=== PATIENT | female | born 1965 | race Caucasian/White ===

== ENCOUNTER 2019-03-02 12:59 | Emergency (ER) | payer OTHER ==
[2019-03-02] MEDS ORDERED: diphenhydrAMINE 50 MG/ML 1 ML VIAL IVP STA (13:24)
[2019-03-02] MEDS ORDERED: SODIUM CHLORIDE 0.9% 1,000 ML IV ONE (13:24)
[2019-03-02] MEDS ORDERED: ONDANSETRON 4 MG/2 ML VIAL IVP STA (13:24)
[2019-03-02] MEDS ORDERED: KETOROLAC 30 MG/ML 1 ML VIAL IVP STA (13:24)
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
[2019-03-02] MEDS ORDERED: DIAZEPAM 5 MG TAB PO STA (15:12)
[2019-03-02 16:45] VITALS: BP 132/82; PULSE 85; RESP 18; TEMP 98.5
== END 2019-03-02 16:44 | disposition home or self-care (01) ==
LOC: EC 12:59
DX: R51 Headache (principal); Z87.891 Personal history of nicotine dependence; Z88.1 Allergy status to other antibiotic agents
CPT/HCPCS: 99283; 96374; 96375 ×2; 96361; J1200; J2405; J1885

== ENCOUNTER 2019-07-27 23:39 | Observation (INO) | payer OTHER ==
[2019-07-27] MEDS ORDERED: KETOROLAC 30 MG/ML 1 ML VIAL IVP STA (23:56)
[2019-07-27] MEDS ORDERED: SODIUM CHLORIDE 0.9% 1,000 ML with MVI, ADULT NO.4 WITH VIT K 10 ML, THIAMINE 100 MG, F... IV ONE ×4 (23:57)
--- NOTE | 2019-07-28 00:10 | ED ---
Extremity Problem HPI - General Chief complaint: Extremity Problem,Nontraumatic Stated complaint: leg pain Time Seen by Provider: 07/27/19 23:43 Source: patient, EMS Mode of arrival: EMS Limitations: no limitations - History of Present Illness Initial comments: 54-year-old female patient presents to the emergency department today for evaluation of left leg pain and suicidal ideation. Patient states that around 10 PM she started having spasming to the left leg. Patient states she has had this pain in the past. Denies any injury. Denies any low back pain. Denies numbness or tingling to the lower extremities. Denies saddle anesthesia or loss of bowel or bladder control. Patient is also reporting depression and suicidal ideation. Patient states she is suicidal every day. She denies any specific plan to take her life. Patient does admit to drinking alcohol this evening. Patient denies any recent rash, fever, chills, shortness breath, chest pain, abdominal pain, nausea, vomiting, diarrhea, constipation, dizziness, weakness, hematuria, dysuria, urinary urgency, urinary frequency, headache, visual changes, or any other complaints. - Related Data Home Medications Medication Instructions Recorded Confirmed No Known Home Medications 03/02/19 03/02/19 Allergies Allergy/AdvReac Type Severity Reaction Status Date / Time bacitracin Allergy Unknown Verified 07/27/19 23:47 Review of Systems ROS Statement: Those systems with pertinent positive or pertinent negative responses have been documented in the HPI. ROS Other: All systems not noted in ROS Statement are negative. Past Medical History Past Medical History: Deep Vein Thrombosis (DVT), Hypertension History of Any Multi-Drug Resistant Organisms: None Reported Additional Past Surgical History / Comment(s): jaw surgery Past Psychological History: Anxiety, Depression Smoking Status: Former smoker Past Alcohol Use History: Daily, Heavy Past Drug Use History: None Reported General Exam Limitations: no limitations General appearance: alert, in no apparent distress, appears intoxicated, other (Physical well-developed, well-nourished adult female patient in no acute distress. Vital signs upon presentation are temperature 98.7F, pulse 82, respirations 18, blood pressure 147/98, pulse ox 94% on room air.) Eye exam: Present: normal appearance, PERRL, EOMI. Absent: scleral icterus, conjunctival injection, periorbital swelling Respiratory exam: Present: normal lung sounds bilaterally. Absent: respiratory distress, wheezes, rales, rhonchi, stridor Cardiovascular Exam: Present: regular rate, normal rhythm, normal heart sounds. Absent: systolic murmur, diastolic murmur, rubs, gallop, clicks Extremities exam: Present: normal inspection, full ROM, normal capillary refill, other (Skin to the left lower extremity is pink, warm, dry. Multiple varicosities. No swelling noted. Pedal and posttibial pulses are 2+ and equal bilaterally.). Absent: tenderness, pedal edema, joint swelling, calf tenderness Back exam: Absent: vertebral tenderness Neurological exam: Present: alert, oriented X3, CN II-XII intact Psychiatric exam: Present: normal affect, normal mood Skin exam: Present: warm, dry, intact, normal color. Absent: rash Course Vital Signs 07/27/19 07/28/19 23:42 01:13 Temperature 98.7 F Pulse Rate 82 73 Respiratory 18 16 Rate Blood Pressure 147/98 127/90 O2 Sat by Pulse 94 L 93 L Oximetry Medical Decision Making - Medical Decision Making 54 year-old female patient presents to the emergency department today for evaluation of left leg pain and suicidal ideation. Patient does admit to drinking alcohol. States she's been having chronic leg pain. Physical examination did reveal warm dry lower extremity. Good distal pulses. Ultrasound was obtained and did reveal evidence for an acute and chronic DVT in the popliteal vein, we will give a dose of Lovenox for this. Alcohol level was 305, she does need a psychiatric evaluation, will admit to the hospital for further evaluation. Alcohol withdrawal protocol has been ordered. - Radiology Data Radiology results: report reviewed, image reviewed Ultrasound of the left lower extremity was obtained. Report was reviewed in its entirety. Impression by Dr. Martinez shows evidence of acute and chronic deep venous thrombosis in the popliteal vein. Disposition Clinical Impression: Alcohol intoxication, Left leg DVT Disposition: ADMITTED IP TO THIS [facility] Condition: Serious Decision to Admit Reason: Admit from EC Decision Date: 07/28/19 Decision Time: 00:11
[2019-07-28] MEDS ORDERED: NALOXONE 0.4 MG/ML 1 ML VIAL IV PRN (00:11)
[2019-07-28] MEDS ORDERED: ONDANSETRON 4 MG/2 ML VIAL IVP PRN (00:11)
[2019-07-28] MEDS ORDERED: THIAMINE 100 MG/ML 2 ML VIAL IM STA (00:11)
[2019-07-28] MEDS ORDERED: LORazepam 2 MG/ML INJ IV PRN ×3 (00:11)
--- NOTE | 2019-07-28 01:13 | US ---
EXAMINATION TYPE: US venous doppler duplex LE LT DATE OF EXAM: 07/28/2019 1:03 AM COMPARISON: US 2014 CLINICAL HISTORY: Left leg pain. Left leg pain x couple days per patient. Hx of DVT. Patient does not take blood thinners. SIDE PERFORMED: Left TECHNIQUE: The lower extremity deep venous system is examined utilizing real time linear array sonog swapna with graded compression, doppler sonography and color-flow sonography. VESSELS IMAGED: External Iliac Vein (EIV) Common Femoral Vein Deep Femoral Vein Greater Saphenous Vein * Femoral Vein Popliteal Vein Small Saphenous Vein * Proximal Calf Veins (* superficial vessels) Left Leg: There appears to be non-occlusive thrombus in the popliteal vein. Vein does not appear to compress. Thready flow is seen. No evidence of DVT in veins imaged from distal femoral vein to EIV. IMPRESSION: There is evidence of acute and chronic deep venous thrombosis in the popliteal vein.
[2019-07-28] MEDS ORDERED: ENOXAPARIN 100 MG/ML SYRINGE SQ STA (01:24)
[2019-07-28 02:01] LABS: ALT 26 U/L (9-52); AST 30 U/L (14-36); African American GFR (CKD) >90 (>60 ml/min/1.73 sqM); Albumin 3.7 g/dL (3.5-5.0); Alkaline Phosphatase 55 U/L (38-126); Anion Gap 9 mmol/L; Blood Urea Nitrogen 11 mg/dL (7-17); Calcium 8.1 mg/dL (8.4-10.2); Carbon Dioxide 27 mmol/L (22-30); Chloride 110 mmol/L (98-107); Glucose 87 mg/dL (74-99); Non-African American GFR(CKD) >90 (>60 ml/min/1.73 sqM); Sodium 146 mmol/L (137-145); Total Bilirubin 0.3 mg/dL (0.2-1.3); Total Protein 6.1 g/dL (6.3-8.2)
[2019-07-28 02:03] LABS: Basophils % (A) 0 %; Eosinophils # (A) 0.1 k/uL (0-0.7); Eosinophils % (A) 2 %; HCT 39.9 % (34.0-46.0); HGB 12.5 gm/dL (11.4-16.0); Lymphocytes # (A) 1.4 k/uL (1.0-4.8); Lymphocytes % (A) 33 %; MCH 30.4 pg (25.0-35.0); MCHC 31.4 g/dL (31.0-37.0); MCV 96.8 fL (80.0-100.0); Mean Platelet Volume 6.3; Monocytes # (A) 0.2 k/uL (0-1.0); Monocytes % (A) 4 %; Neutrophils # (A) 2.4 k/uL (1.3-7.7); Neutrophils % (A) 58 %; Platelet Count 159 k/uL (150-450); RBC 4.12 m/uL (3.80-5.40); RDW 13.4 % (11.5-15.5); WBC 4.1 k/uL (3.8-10.6)
[2019-07-28 02:08] LABS: Partial Thromboplastin Time 22.5 sec (22.0-30.0); Prothrombin Time 10.6 sec (9.0-12.0)
[2019-07-28 02:38] VITALS: BMI 29.8
[2019-07-28] MEDS: ACETAMINOPHEN TAB 325 MG TAB PO PRN (09:52)
[2019-07-28 10:54] LABS: Amphetamine Screen,Urine Not Detected (NotDetected); Barbiturate Screen,Urine Not Detected (NotDetected); Benzodiazepines Screen,Urine Not Detected (NotDetected); Cocaine Screen,Urine Not Detected (NotDetected); Methadone Screen, Urine Not Detected (NotDetected); Opiate Screen,Urine Not Detected (NotDetected); Oxycodone Screen, Urine Not Detected (NotDetected); Phencyclidine Screen,Urine Not Detected (NotDetected); Tricyclic Antidepressant,Urine Not Detected (NotDetected); Urn Cannabinoid Scrn Not Detected (NotDetected)
[2019-07-28] MEDS ORDERED: RIVAROXABAN 15 MG TAB PO SCH (12:15)
[2019-07-28] MEDS: RIVAROXABAN 15 MG TAB PO SCH ×2 (12:48→20:49)
[2019-07-28] MEDS: DIAZEPAM 5 MG TAB PO SCH ×3 (13:09→20:49)
[2019-07-28] MEDS: THIAMINE 100 MG TAB PO SCH (13:09)
[2019-07-28] MEDS: METOPROLOL TARTRATE 12.5 MG TAB PO SCH ×2 (13:09→20:49)
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
[2019-07-29] MEDS: ACETAMINOPHEN TAB 325 MG TAB PO PRN (04:48)
[2019-07-29] MEDS: THIAMINE 100 MG TAB PO SCH ×2 (07:04→15:38)
[2019-07-29] MEDS: METOPROLOL TARTRATE 12.5 MG TAB PO SCH ×2 (07:04→21:15)
[2019-07-29] MEDS: RIVAROXABAN 15 MG TAB PO SCH ×2 (07:04→15:38)
[2019-07-29] MEDS: DIAZEPAM 5 MG TAB PO SCH ×3 (07:04→21:15)
[2019-07-29 07:54] LABS: Creatine Kinase 48 U/L (30-135)
[2019-07-29 08:07] LABS: Creatine Kinase MB 0.8 ng/mL (0.0-2.4); Troponin I <0.012 ng/mL (0.000-0.034)
--- NOTE | 2019-07-29 23:35 | P.PN ---
Progress Note - Text Progress Note Date: 07/29/19 Chief Complaint: Left leg cramping History of presenting complaint: This is a 54-year-old patient of Dr. Marleen Figueroa. Back in 2016 she had a what she describes as a duty of the left lower extremity. She was then followed with Dr. Duff. Wasn't Xarelto. Did complete a course. She was also had the Hospital where clot extraction was carried out. She cannot give me more details. Patient yesterday started having cramping in the left leg. And presented to the ER. More around the knee area above and below that. No shortness of breath. Doppler ultrasound did show acute on chronic DVT and a protruding. Patient did receive 100 mg of Lovenox 1 dose. Patient only drinks at least a liter of vodka every day. Has been negative for close to 40 years. She's had tried to get help in the past. Did go to one unit of detox program which is [facility] based in [place] in [place]. She has 6 siblings. And alcohol has been a problem. There was a concern about patient mentioning about suicide when checked, and has a sitter was placed. Psychiatry was consulted. When I took. The patient does morning patient was not suicidal. She was feeling a bit low. Admitted with early alcohol withdrawal, depression, acute alcohol intoxication Today-still presence off tremors. slightly better. Did tolerate her diet. A bit anxious Review of systems: Was done for constitutional, cardiovascular, GI, pulmonary. Psychiatry, relevant finding as above Active Medications Acetaminophen (Tylenol Tab) 650 mg PO Q6HR PRN PRN Reason: Fever and/ or Pain Last Admin: 07/29/19 04:48 Dose: 650 mg Documented by: Diazepam (Valium) 5 mg PO TID [facility] Last Admin: 07/29/19 21:15 Dose: 5 mg Documented by: Lorazepam (Ativan) 1 mg IV Q2HR PRN PRN Reason: CIWA 8 or 9 Lorazepam (Ativan) 1 mg IV Q1HR PRN PRN Reason: CIWA 10 to 15 Lorazepam (Ativan) 2 mg IV Q10M PRN PRN Reason: CIWA 16 or higher Stop: 07/30/19 00:11 Metoprolol Tartrate (Lopressor) 12.5 mg PO BID [facility] Last Admin: 11/16/19 21:15 Dose: 12.5 mg Documented by: Naloxone HCl (Narcan) 0.2 mg IV Q2M PRN PRN Reason: Opioid Reversal Ondansetron HCl (Zofran) 4 mg IVP Q8HR PRN PRN Reason: Nausea And Vomiting Rivaroxaban (Xarelto) 15 mg PO BID-W/MEALS [facility] Last Admin: 07/29/19 15:38 Dose: 15 mg Documented by: Thiamine HCl (Vitamin B-1) 100 mg PO BID-W/MEALS [facility] Last Admin: 07/29/19 15:38 Dose: 100 mg Documented by: Physical examination: VITAL SIGNS: 98.7, 76, 16, 130/89, 95% room air GENERAL: Laying in bed, slightly anxious. EYES: Pupils equal. Conjunctiva normal. HEENT: External appearance of nose and ears normal, oral cavity grossly normal spider telangiectasia on the face and upper chest. NECK: JVD not raised; masses not palpable. HEART: First and second heart sounds are normal; no edema. LUNGS: Respiratory rate normal; clear to auscultation. ABDOMEN: Soft, nontender, liver spleen not palpable, no masses palpable. PSYCH: Alert and oriented x3; mood and affect anxiousl. NEUROLOGICAL: Cranial nerves grossly intact; no facial asymmetry, power and sensation grossly intact. Tremors INVESTIGATIONS, reviewed in the clinical context: White count 4.1 hemoglobin 12.5 progression for BUN 11 creatinine 0.65 albumin 3.7 Doppler ultrasound-acute on chronic DVT in the left lower extremity in the popliteal vein Assessment: -Acute on chronic DVT in the left popliteal vein symptoms of one-day duration. No obvious precipitating factor except for the fact that patient had a DVT there in 2016. -Chronic alcohol dependence, patient been drinking for several years -Acute alcohol withdrawal syndrome, with patient being anxious tremors, bit flushed drain- -Depression not otherwise specified, currently not suicidal Plan: Continue with Valium. Beta judi. Patient is on Xarelto. Discussed with the patient. Keep her back for at least a day. She will talk to her family members to see if somebody can live with her temporarily or she can live with somebody for the same.
[2019-07-30] MEDS: RIVAROXABAN 15 MG TAB PO SCH (07:31)
[2019-07-30] MEDS: THIAMINE 100 MG TAB PO SCH (07:31)
[2019-07-30] MEDS: METOPROLOL TARTRATE 12.5 MG TAB PO SCH (07:31)
[2019-07-30] MEDS: DIAZEPAM 5 MG TAB PO SCH (07:32)
[2019-07-30 14:24] VITALS: BP 126/86; PULSE 78; RESP 16; TEMP 98
--- NOTE | 2019-07-30 19:01 | P.DS ---
Providers Date of admission: 07/28/19 00:28 Expected date of discharge: 07/30/19 Attending physician: Marco Franco Consults: 07/28/19 00:11 Consult Physician Routine Consulting Provider: Abdirizak Claudio Reason/Comments: Suicidal Ideation Do you want consulting provider notified?: Already Contacted Primary care physician: Constantine Figueroa [facility] Course: Chief Complaint: Left leg cramping History of presenting complaint: This is a 54-year-old patient of Dr. Marleen Figueroa. Back in 2016 she had a what she describes as a duty of the left lower extremity. She was then followed with Dr. Duff. Wasn't Xarelto. Did complete a course. She was also had the Hospital where clot extraction was carried out. She cannot give me more detail s. Patient yesterday started having cramping in the left. And presented to the ER. More around the knee area above and below that. No shortness of breath. Doppler ultrasound did show acute on chronic DVT and a protruding. Patient did receive 100 mg of Lovenox 1 dose. Patient only drinks at least a liter of vodka every day. Has been negative for close to 40 years. She's had tried to get help in the past. Did go to one unit of detox program which is [facility] based in [place] in [place]. She has 6 siblings. And alcohol has been a problem. There was a concern about patient mentioning about suicide when checked, and has a sitter was placed. Psychiatry was consulted. When I took. The patient does morning patient was not suicidal. She was feeling a bit low. Admitted with early alcohol withdrawal, depression, acute alcohol intoxication. Acute DVT of the left leg. She was seen by psychiatrist. No further intervention. Patient was given Valium beta blockers for the withdrawal to which she responded well. Was started on Xarelto. Today-feeling much improved. Had a very lengthy talk with the patient about several aspects of alcoholism. She is mentally trying to stay away from the same. She has several siblings. She'll reach out of them. I did tell her to make a plan before she leaves the hospital. Discussion and discharge planning more than 35 minutes Consultation: Psychiatrist-Abdirizak Morgan Physical examination: VITAL SIGNS: 98, 78, 16, 126/86, 96% room air GENERAL: Sitting up, comfortable. EYES: Pupils equal. Conjunctiva normal. HEENT: External appearance of nose and ears normal, oral cavity grossly normal spider telangiectasia on the face and upper chest. NECK: JVD not raised; masses not palpable. HEART: First and second heart sounds are normal; no edema. LUNGS: Respiratory rate normal; clear to auscultation. ABDOMEN: Soft, nontender, liver spleen not palpable, no masses palpable. PSYCH: Alert and oriented x3; mood and affect anxious,. NEUROLOGICAL: Tremor is much improved INVESTIGATIONS, reviewed in the clinical context: White count 4.1 hemoglobin 12.5 progression for BUN 11 creatinine 0.65 albumin 3.7 Doppler ultrasound-acute on chronic DVT in the left lower extremity in the popliteal vein Assessment: -Acute on chronic DVT in the left popliteal vein symptoms of one-day duration. patient had a DVT there in 2016. -Chronic alcohol dependence, patient been drinking for several years -Acute alcohol withdrawal syndrome, with patient being anxious tremors, bit flushed drain- -Depression not otherwise specified, currently not suicidal Disposition: Home Addendum: Later in the evening. Did call patient's sister Benita, to see if to siblings could help the patient out. She was very receptive to the same. Patient Condition at Discharge: Stable Plan - Discharge Summary Discharge Rx Participant: No New Discharge Prescriptions: New Disulfiram 250 mg PO DIRECTED #30 tablet Metoprolol Tartrate [Lopressor] 12.5 mg PO BID #6 tab Thiamine [Vitamin B-1] 100 mg PO DAILY #30 tab Rivaroxaban [Xarelto] 15 mg PO BID-W/MEALS tab Continue Ibuprofen [Advil] 400 mg PO Q8HR PRN PRN Reason: Pain Fluticasone Nasal [place] [Flonase Nasal [place]] 2 sprays EA NOSTRIL DAILY PRN PRN Reason: Allergy Symptoms Discharge Medication List Fluticasone Nasal [place] [Flonase Nasal [place]] 2 sprays EA NOSTRIL DAILY PRN 07/28/19 [History] Ibuprofen [Advil] 400 mg PO Q8HR PRN 07/28/19 [History] Disulfiram 250 mg PO DIRECTED #30 tablet 07/30/19 [Rx] Metoprolol Tartrate [Lopressor] 12.5 mg PO BID #6 tab 07/30/19 [Rx] Rivaroxaban [Xarelto] 15 mg PO BID-W/MEALS tab 07/30/19 [Rx] Thiamine [Vitamin B-1] 100 mg PO DAILY #30 tab 07/30/19 [Rx] Follow up Appointment(s)/Referral(s): Constantine Figueroa DO [Primary Care Provider] - 1-2 days Patient Instructions/Handouts: Alcohol Intoxication (DC), Alcohol Withdrawal (DC) Activity/Diet/Wound Care/Special Instructions: Nurse: if patient needs anticoag, she has no insurance and will only qualify for 1 free month of Xarelto, otherwise she will have to go on coumadin. Free Coupon is in front of chart Given to patient on Discharge Discharge Disposition: HOME SELF-CARE
== END 2019-07-30 14:32 | disposition home or self-care (01) ==
LOC: SUPCPDRO 23:39 → EC 23:39 → 4MS4W 07-28 00:28
PROVIDERS: ADMIT Hospitalist; ATTEND Hospitalist
DX: I82.532 Chronic embolism and thrombosis of left popliteal vein (principal); I82.402 Acute embolism and thrombosis of unspecified deep veins of left lower extremity; F10.239 Alcohol dependence with withdrawal, unspecified; F10.229 Alcohol dependence with intoxication, unspecified; F10.24 Alcohol dependence with alcohol-induced mood disorder; F32.9 Major depressive disorder, single episode, unspecified; F41.9 Anxiety disorder, unspecified; R45.851 Suicidal ideations; Y90.8 Blood alcohol level of 240 mg/100 ml or more; I10 Essential (primary) hypertension; I83.90 Asymptomatic varicose veins of unspecified lower extremity; M79.89 Other specified soft tissue disorders; G89.29 Other chronic pain; Z88.1 Allergy status to other antibiotic agents; Z87.891 Personal history of nicotine dependence; Z79.1 Long term (current) use of non-steroidal anti-inflammatories (NSAID); Z81.1 Family history of alcohol abuse and dependence; E66.9 Obesity, unspecified; Z68.29 Body mass index [BMI] 29.0-29.9, adult
CPT/HCPCS: 96366 ×2; 82075; 96365; 96372; 96375; 99285; 93005; 80053; 82550; 82553; 84484; 85025; 85610; 85730; 80306; 93971; G0378 ×3; J3411; J1650; J1885

== ENCOUNTER 2019-11-21 09:48 | Emergency (ER) | payer OTHER ==
[2019-11-21 09:55] VITALS: RESP 18; TEMP 97.7
--- NOTE | 2019-11-21 10:19 | ED ---
Head Injury HPI - General Chief complaint: Head Injury Stated complaint: [facility]-head injury Time Seen by Provider: 11/21/19 10:03 Source: patient, RN notes reviewed, old records reviewed Mode of arrival: ambulatory Limitations: no limitations - History of Present Illness Initial comments: Patient is a 54-year-old female who presents emergency department today for evaluation with concern for dizziness and headache after head injury at work. Patient reports she was walking through bathroom door when the door frame fell on her head. Patient reports that she is on a blood thinner. Patient states that she's been having some persistent dizziness and foggy headed since that time. Patient has had no other significant complaints. - Related Data Home Medications Medication Instructions Recorded Confirmed Fluticasone Nasal [place] [Flonase 2 sprays EA NOSTRIL DAILY PRN 07/28/19 07/28/19 Nasal [place]] Ibuprofen [Advil] 400 mg PO Q8HR PRN 07/28/19 07/28/19 Previous Rx's Medication Instructions Recorded Disulfiram 250 mg PO DIRECTED #30 tablet 07/30/19 Metoprolol Tartrate [Lopressor] 12.5 mg PO BID #6 tab 07/30/19 Rivaroxaban [Xarelto] 15 mg PO BID-W/MEALS tab 07/30/19 Thiamine [Vitamin B-1] 100 mg PO DAILY #30 tab 07/30/19 Allergies/Adverse reactions: Allergies Allergy/AdvReac Type Severity Reaction Status Date / Time bacitracin Allergy Rash/Hives Verified 07/28/19 07:52 Review of Systems ROS Statement: Those systems with pertinent positive or pertinent negative responses have been documented in the HPI. ROS Other: All systems not noted in ROS Statement are negative. Past Medical History Past Medical History: Deep Vein Thrombosis (DVT), Hypertension History of Any Multi-Drug Resistant Organisms: None Reported Additional Past Surgical History / Comment(s): jaw surgery Past Psychological History: Anxiety, Depression Smoking Status: Former smoker Past Alcohol Use History: Occasional Past Drug Use History: None Reported General Exam - General Exam Comments Initial Comments: 54-year-old female. Alert and oriented 3. No distress. Limitations: no limitations General appearance: alert, in no apparent distress Head exam: Present: atraumatic, normocephalic, normal inspection Eye exam: Present: normal appearance, PERRL, EOMI. Absent: scleral icterus, conjunctival injection, periorbital swelling ENT exam: Present: normal exam, mucous membranes moist Neck exam: Present: normal inspection. Absent: tenderness, meningismus, lymphadenopathy Respiratory exam: Present: normal lung sounds bilaterally. Absent: respiratory distress, wheezes, rales, rhonchi, stridor Cardiovascular Exam: Present: regular rate, normal rhythm, normal heart sounds. Absent: systolic murmur, diastolic murmur, rubs, gallop, clicks GI/Abdominal exam: Present: soft, normal bowel sounds. Absent: distended, tenderness, guarding, rebound, rigid Extremities exam: Present: normal inspection, full ROM, normal capillary refill. Absent: tenderness, pedal edema, joint swelling, calf tenderness Back exam: Present: normal inspection, full ROM Neurological exam: Present: alert, oriented X3, CN II-XII intact Expanded Patient oriented to: Present: person, place, time Speech: Present: fluid speech Cranial nerves: EOM's Intact: Normal Cerebellar function: Finger to Nose: Normal Upper motor neuron: Pronator Drift: Normal Sensory exam: Upper Extremity Light Touch: Normal, Lower Extremity Light Touch: Normal Motor strength exam: RUE: 5, LUE: 5, RLE: 5, LLE: 5 Eye Response: (4) open spontaneously Motor Response: (6) obeys commands Verbal Response: (5) oriented Ann Total: 15 Psychiatric exam: Present: normal affect, normal mood Skin exam: Present: warm, dry, intact, normal color. Absent: rash Course Vital Signs 11/21/19 09:51 Temperature 97.7 F Pulse Rate 68 Respiratory 18 Rate Blood Pressure 128/80 O2 Sat by Pulse 99 Oximetry Medical Decision Making - Medical Decision Making 54-year-old female presents emergency department today for evaluation with concern for dizziness After head injury 2 days ago. She is on a blood thinner. She no loss of consciousness at that time. Patient at this time has no acute neurological deficits. Patient CT of the brain shows no evidence of any acute intracranial hemorrhage or mass effect. Evidence of chronic small vessel disease noted. Patient was advised that she has a concussion. Discussed on head injury and concussion instructions. Patient will be discharged at this time advised to follow-up with PCP for further evaluation. - Radiology Data Radiology results: report reviewed CT shows no acute intracranial hemorrhage or mass effect or midline shift is seen. Few scattered foci of nonspecific white matter change. Most commonly and chronic microangiopathy. Read by Dr. Mills. Disposition Clinical Impression: Concussion Disposition: HOME SELF-CARE Condition: Good Instructions (If sedation given, give patient instructions): Concussion (ED) Additional Instructions: Patient advised to take Tylenol and Motrin for headache and pain. Patient should rest, increase fluid intake. Follow-up with her primary care physician. Is patient prescribed a controlled substance at d/c from ED?: No Referrals: Constantine Figueroa DO [Primary Care Provider] - 1-2 days Time of Disposition: 10:43
--- NOTE | 2019-11-21 10:38 | CT ---
EXAMINATION TYPE: CT brain wo con DATE OF EXAM: 11/21/2019 COMPARISON: NONE HISTORY: headache, dizziness, memory loss, fatigue post fall with head injury CT DLP: 1023.4 mGycm. Automated Exposure Control for Dose Reduction was Utilized. TECHNIQUE: CT scan of the head is performed without contrast. FINDINGS: There is no acute intracranial hemorrhage, mass effect, or midline shift identified. Few scattered foci of nonspecific white matter change are seen in the periventricular white matter appear ing as a hypoattenuated foci. The ventricles and sulci are within normal limits in size. The globes are intact and the visualized sinuses are clear. Atherosclerosis is seen of the intracranial vascula ture. IMPRESSION: No acute intracranial hemorrhage, mass effect, or midline shift is seen. Few scattered f oci of nonspecific white matter change, most commonly on the basis of chronic microangiopathy.
[2019-11-21 11:18] VITALS: BP 121/80; PULSE 71
== END 2019-11-21 11:18 | disposition home or self-care (01) ==
LOC: EC 09:48
DX: S06.0X0A Concussion without loss of consciousness, initial encounter (principal); Z87.891 Personal history of nicotine dependence; Z88.1 Allergy status to other antibiotic agents; Z79.01 Long term (current) use of anticoagulants; Z86.718 Personal history of other venous thrombosis and embolism; W20.8XXA Other cause of strike by thrown, projected or falling object, initial encounter; Y93.01 Activity, walking, marching and hiking; Y92.69 Other specified industrial and construction area as the place of occurrence of the external cause; Y99.0 Civilian activity done for income or pay
CPT/HCPCS: 70450; 99284

== ENCOUNTER → 2019-11-22 | Outpatient (CLI) | payer OTHER ==
--- NOTE | 2019-11-22 16:53 | XR ---
Left hand HISTORY: Trauma and pain 3 views the left hand Bone mineralization, joint spaces and alignment are maintained with exception of arthropathy change a t the interphalangeal joint, metacarpophalangeal joint of the first digit. IMPRESSION: No fracture or dislocation.
== END | disposition home or self-care (01) ==
LOC: RADXRMAIN 16:34
PROVIDERS: ATTEND Emergency Medicine
DX: S60.222A Contusion of left hand, initial encounter (principal)

== ENCOUNTER 2019-12-01 21:56 | Emergency (ER) | payer MEDICAID, OTHER ==
[2019-12-01 22:06] VITALS: RESP 18
--- NOTE | 2019-12-01 22:17 | ED ---
SOB HPI - General Chief Complaint: Shortness of Breath Stated Complaint: cough, SOB Time Seen by Provider: 12/01/19 22:05 Source: patient, EMS Mode of arrival: EMS Limitations: no limitations - History of Present Illness Initial Comments: Brandi is a 54 yo female who since the emergency department today for evaluation of cough and shortness of breath. 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 Patient presents to ER today for evaluation of a persistent nonproductive dry cough for multiple hours. Patient reports she been coughing earlier in the day and has been unable to stop coughing. She denies any associated fevers, chills, nausea, vomiting or shortness of breath. Patient was a smoker until 8 years ago but has never been diagnosed with COPD and doesn't use breathing treatments at home. - Related Data Home Medications Medication Instructions Recorded Confirmed Fluticasone Nasal [place] [Flonase 2 sprays EA NOSTRIL DAILY PRN 07/28/19 07/28/19 Nasal [place]] Ibuprofen [Advil] 400 mg PO Q8HR PRN 07/28/19 07/28/19 Previous Rx's Medication Instructions Recorded Disulfiram 250 mg PO DIRECTED #30 tablet 07/30/19 Metoprolol Tartrate [Lopressor] 12.5 mg PO BID #6 tab 07/30/19 Rivaroxaban [Xarelto] 15 mg PO BID-W/MEALS tab 07/30/19 Thiamine [Vitamin B-1] 100 mg PO DAILY #30 tab 07/30/19 Codeine Phosphate/Guaifenesin 5 ml PO Q4H PRN 3 Days #90 ml 12/02/19 [Guaifen-Codeine 100-10 mg/5 ml] Allergies Allergy/AdvReac Type Severity Reaction Status Date / Time bacitracin Allergy Rash/Hives Verified 07/28/19 07:52 Review of Systems ROS Statement: Those systems with pertinent positive or pertinent negative responses have been documented in the HPI. ROS Other: All systems not noted in ROS Statement are negative. Past Medical History Past Medical History: Deep Vein Thrombosis (DVT), Hypertension History of Any Multi-Drug Resistant Organisms: None Reported Additional Past Surgical History / Comment(s): jaw surgery Past Psychological History: Anxiety, Depression Smoking Status: Former smoker Past Alcohol Use History: Occasional Past Drug Use History: None Reported General Exam - General Exam Comments Initial Comments: Physical Exam GENERAL: Patient is well-developed and well-nourished. Patient is nontoxic and well-hydrated and is in no distress. HENT: Normocephalic, Atraumatic. EYES: PERRL, EOMI PULMONARY: Tachypneic with a dry cough No audible rales rhonchi or wheezing was noted. CARDIOVASCULAR: There is a regular rate and rhythm without any murmurs gallops or rubs. ABDOMEN: Soft and nontender with normal bowel sounds. SKIN: Skin is clear with no lesions or rashes and otherwise unremarkable. : Deferred NEUROLOGIC: Patient is alert and oriented x3. Moving all extremities spontaneously MUSCULOSKELETAL: Normal extremities with adequate strength and full range of motion. No lower extremity swelling or edema. No calf tenderness. PSYCHIATRIC: Normal psychiatric evaluation. Limitations: no limitations Course Vital Signs 12/01/19 12/01/19 12/02/19 21:58 22:24 01:09 Temperature 98.7 F 98.8 F Pulse Rate 87 75 Respiratory 18 18 18 Rate Blood Pressure 105/67 129/78 O2 Sat by Pulse 96 98 Oximetry Medical Decision Making - Medical Decision Making The patient was seen and evaluated, history is obtained from the patient Physical exam reveals patient with a dry nonproductive cough, no wheezing or rales A full septic Workup was initiated Labs resulted with no significant abnormalities aside from mildly elevated lactic acid, patient received IV fluids Patient cough was treated with codeine containing cough medicine Patient's cough improved significantly Chest x-ray with no acute findings Though the patient is moderate risk for exposure 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 She has no fever no tachycardia and no hypoxia. At this time she does not warrant further testing and I will recommend charge home and self quarantine until asymptomatic. - Lab Data Result diagrams: 12/01/19 22:10 12/01/19 22:10 Lab Results 12/01/19 12/01/19 12/01/19 Range/Units 22:10 22:10 22:10 WBC 5.3 (3.8-10.6) k/uL RBC 4.38 (3.80-5.40) m/uL Hgb 13.7 (11.4-16.0) gm/dL Hct 42.5 (34.0-46.0) % MCV 97.2 (80.0-100.0) fL MCH 31.3 (25.0-35.0) pg MCHC 32.2 (31.0-37.0) g/dL RDW 12.8 (11.5-15.5) % Plt Count 219 (150-450) k/uL Neutrophils % 65 % Lymphocytes % 28 % Monocytes % 3 % Eosinophils % 2 % Basophils % 0 % Neutrophils # 3.4 (1.3-7.7) k/uL Lymphocytes # 1.5 (1.0-4.8) k/uL Monocytes # 0.1 (0-1.0) k/uL Eosinophils # 0.1 (0-0.7) k/uL Basophils # 0.0 (0-0.2) k/uL PT 10.1 (9.0-12.0) sec INR 1.0 (<1.2) APTT 22.2 (22.0-30.0) sec Sodium 142 (137-145) mmol/L Potassium 4.3 (3.5-5.1) mmol/L Chloride 109 H (98-107) mmol/L Carbon Dioxide 21 L (22-30) mmol/L Anion Gap 12 mmol/L BUN 11 (7-17) mg/dL Creatinine 0.74 (0.52-1.04) mg/dL Est GFR (CKD-EPI)AfAm >90 (>60 ml/min/1.73 sqM) Est GFR (CKD-EPI)NonAf >90 (>60 ml/min/1.73 sqM) Glucose 81 (74-99) mg/dL Lactic Ac Sepsis Rflx Plasma Lactic Acid Antoine (0.7-2.0) mmol/L Calcium 8.9 (8.4-10.2) mg/dL Total Bilirubin 0.2 (0.2-1.3) mg/dL AST 23 (14-36) U/L ALT 12 (4-34) U/L Alkaline Phosphatase 60 (38-126) U/L C-Reactive Protein <5.0 (<10.0) mg/L Total Protein 6.8 (6.3-8.2) g/dL Albumin 4.3 (3.5-5.0) g/dL Influenza Type A RNA (Not Detectd) Influenza Type B (PCR) (Not Detectd) 12/01/19 12/01/19 12/01/19 Range/Units 22:10 22:10 23:45 WBC (3.8-10.6) k/uL RBC (3.80-5.40) m/uL Hgb (11.4-16.0) gm/dL Hct (34.0-46.0) % MCV (80.0-100.0) fL MCH (25.0-35.0) pg MCHC (31.0-37.0) g/dL RDW (11.5-15.5) % Plt Count (150-450) k/uL Neutrophils % % Lymphocytes % % Monocytes % % Eosinophils % % Basophils % % Neutrophils # (1.3-7.7) k/uL Lymphocytes # (1.0-4.8) k/uL Monocytes # (0-1.0) k/uL Eosinophils # (0-0.7) k/uL Basophils # (0-0.2) k/uL PT (9.0-12.0) sec INR (<1.2) APTT (22.0-30.0) sec Sodium (137-145) mmol/L Potassium (3.5-5.1) mmol/L Chloride (98-107) mmol/L Carbon Dioxide (22-30) mmol/L Anion Gap mmol/L BUN (7-17) mg/dL Creatinine (0.52-1.04) mg/dL Est GFR (CKD-EPI)AfAm (>60 ml/min/1.73 sqM) Est GFR (CKD-EPI)NonAf (>60 ml/min/1.73 sqM) Glucose (74-99) mg/dL Lactic Ac Sepsis Rflx Y Plasma Lactic Acid Antoine 3.4 H* (0.7-2.0) mmol/L Calcium (8.4-10.2) mg/dL Total Bilirubin (0.2-1.3) mg/dL AST (14-36) U/L ALT (4-34) U/L Alkaline Phosphatase (38-126) U/L C-Reactive Protein (<10.0) mg/L Total Protein (6.3-8.2) g/dL Albumin (3.5-5.0) g/dL Influenza Type A RNA Not Detected (Not Detectd) Influenza Type B (PCR) Not Detected (Not Detectd) Disposition Clinical Impression: Upper respiratory infection Disposition: HOME SELF-CARE Condition: Stable Additional Instructions: Patient was given instructions on coronavirus per the CDC website, recommended to self isolate Prescriptions: Codeine Phosphate/Guaifenesin [Guaifen-Codeine 100-10 mg/5 ml] 5 ml PO Q4H PRN 3 Days #90 ml PRN Reason: Cough Is patient prescribed a controlled substance at d/c from ED?: No Referrals: Constantine Figueroa DO [Primary Care Provider] - 1-2 days
[2019-12-01 23:06] LABS: Basophils % (A) 0 %; Eosinophils # (A) 0.1 k/uL (0-0.7); Eosinophils % (A) 2 %; HCT 42.5 % (34.0-46.0); HGB 13.7 gm/dL (11.4-16.0); Lymphocytes # (A) 1.5 k/uL (1.0-4.8); Lymphocytes % (A) 28 %; MCH 31.3 pg (25.0-35.0); MCHC 32.2 g/dL (31.0-37.0); MCV 97.2 fL (80.0-100.0); Mean Platelet Volume 7.5; Monocytes # (A) 0.1 k/uL (0-1.0); Monocytes % (A) 3 %; Neutrophils # (A) 3.4 k/uL (1.3-7.7); Neutrophils % (A) 65 %; Platelet Count 219 k/uL (150-450); RBC 4.38 m/uL (3.80-5.40); RDW 12.8 % (11.5-15.5); WBC 5.3 k/uL (3.8-10.6)
[2019-12-01 23:11] LABS: Partial Thromboplastin Time 22.2 sec (22.0-30.0); Prothrombin Time 10.1 sec (9.0-12.0)
[2019-12-01 23:14] LABS: ALT 12 U/L (4-34); AST 23 U/L (14-36); African American GFR (CKD) >90 (>60 ml/min/1.73 sqM); Albumin 4.3 g/dL (3.5-5.0); Alkaline Phosphatase 60 U/L (38-126); Anion Gap 12 mmol/L; Blood Urea Nitrogen 11 mg/dL (7-17); Calcium 8.9 mg/dL (8.4-10.2); Carbon Dioxide 21 mmol/L (22-30); Chloride 109 mmol/L (98-107); Glucose 81 mg/dL (74-99); Non-African American GFR(CKD) >90 (>60 ml/min/1.73 sqM); Potassium 4.3 mmol/L (3.5-5.1); Sodium 142 mmol/L (137-145); Total Bilirubin 0.2 mg/dL (0.2-1.3); Total Protein 6.8 g/dL (6.3-8.2)
--- NOTE | 2019-12-01 23:35 | XR ---
EXAMINATION TYPE: XR chest 2V DATE OF EXAM: 12/01/2019 COMPARISON: NONE HISTORY: Cough TECHNIQUE: FINDINGS: Heart and mediastinum are normal. Lungs are clear. Diaphragm is normal. Bony thorax appears normal. IMPRESSION: Normal chest. Normal heart.
[2019-12-01 23:44] LABS: C Reactive Protein <5.0 mg/L (<10.0)
[2019-12-01] MEDS ORDERED: guaiFENesin-Coden 100-10MG/5ML 10 ML CUP PO STA (23:45)
[2019-12-01] MEDS ORDERED: SODIUM CHLORIDE 0.9% 1,000 ML IV ONE (23:49)
[2019-12-02 01:10] VITALS: BP 129/78; PULSE 75; TEMP 98.8
== END 2019-12-02 01:10 | disposition home or self-care (01) ==
LOC: EC 21:56
DX: J06.9 Acute upper respiratory infection, unspecified (principal); Z87.891 Personal history of nicotine dependence; Z88.1 Allergy status to other antibiotic agents
CPT/HCPCS: 36415; 71046; 80053; 83605; 84145; 85025; 85610; 85730; 86140; 87040; 87502; 96360; 99285

== ENCOUNTER 2019-12-09 07:59 | Emergency (ER) | payer MEDICAID, OTHER ==
[2019-12-09 08:07] VITALS: BP 109/75; PULSE 90; TEMP 98.1
[2019-12-09 08:16] VITALS: RESP 18
--- NOTE | 2019-12-09 08:16 | ED ---
Fall HPI - General Chief Complaint: Fall Stated Complaint: Fall Time Seen by Provider: 12/09/19 08:08 Source: patient, RN notes reviewed Mode of arrival: wheelchair Limitations: no limitations - History of Present Illness Initial Comments: This a 54-year-old female presents emergency Department chief complaint of fall, right knee pain. 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 She states she is cleaning her bathroom when to move states her knee gave out falling onto her right knee. Patient denies any head injury no loss conscious. Patient does state that she has a blood clot in her left leg she has no symptoms of her left leg at this time. She denies any chest pain or shortness of breath. She denies any significant swelling, bruising to her right leg. - Related Data Home Medications Medication Instructions Recorded Confirmed Fluticasone Nasal [place] [Flonase 2 sprays EA NOSTRIL DAILY PRN 07/28/19 07/28/19 Nasal [place]] Ibuprofen [Advil] 400 mg PO Q8HR PRN 07/28/19 07/28/19 Previous Rx's Medication Instructions Recorded Disulfiram 250 mg PO DIRECTED #30 tablet 07/30/19 Metoprolol Tartrate [Lopressor] 12.5 mg PO BID #6 tab 07/30/19 Rivaroxaban [Xarelto] 15 mg PO BID-W/MEALS tab 07/30/19 Thiamine [Vitamin B-1] 100 mg PO DAILY #30 tab 07/30/19 Codeine Phosphate/Guaifenesin 5 ml PO Q4H PRN 3 Days #90 ml 12/02/19 [Guaifen-Codeine 100-10 mg/5 ml] Ibuprofen [Motrin] 600 mg PO Q8HR PRN #20 tab 12/09/19 Allergies Allergy/AdvReac Type Severity Reaction Status Date / Time bacitracin Allergy Rash/Hives Verified 12/09/19 08:07 Review of Systems ROS Statement: Those systems with pertinent positive or pertinent negative responses have been documented in the HPI. ROS Other: All systems not noted in ROS Statement are negative. Past Medical History Past Medical History: Deep Vein Thrombosis (DVT), Hypertension History of Any Multi-Drug Resistant Organisms: None Reported Additional Past Surgical History / Comment(s): jaw surgery Past Psychological History: Anxiety, Depression Smoking Status: Former smoker Past Alcohol Use History: Occasional Past Drug Use History: None Reported General Exam Limitations: no limitations General appearance: alert, in no apparent distress Head exam: Present: atraumatic, normocephalic, normal inspection Eye exam: Present: normal appearance, PERRL, EOMI. Absent: scleral icterus, conjunctival injection, periorbital swelling ENT exam: Present: normal exam, normal oropharynx, mucous membranes moist Neck exam: Present: normal inspection. Absent: tenderness, meningismus, lymphadenopathy Respiratory exam: Present: normal lung sounds bilaterally. Absent: respiratory distress, wheezes, rales, rhonchi, stridor Cardiovascular Exam: Present: regular rate, normal rhythm, normal heart sounds. Absent: systolic murmur, diastolic murmur, rubs, gallop, clicks Extremities exam: Present: other (Right knee there is no obvious deformity, neurovascular intact no significant swelling or localized tenderness patient reports mild diffuse patient does report some mild discomfort with range of motion right knee. No tenderness proximal or distal) Neurological exam: Present: alert, oriented X3, reflexes normal. Absent: motor sensory deficit Skin exam: Present: warm, dry, intact, normal color. Absent: rash Course Vital Signs 12/09/19 12/09/19 12/09/19 08:04 08:07 08:08 Temperature 98.1 F Pulse Rate 90 Respiratory 16 18 18 Rate Blood Pressure 109/75 O2 Sat by Pulse 96 Oximetry Medical Decision Making - Medical Decision Making X-ray showed early changes of osteoarthritis. Patient was likely has a right knee sprain, contusion. Patient will be discharged in stable condition with close follow-up return parameters were discussed. Disposition Clinical Impression: Fall, Contusion of right knee, Right knee sprain Disposition: HOME SELF-CARE Condition: Stable Instructions (If sedation given, give patient instructions): Knee Sprain (DC) Additional Instructions: Please return to the Emergency Department if symptoms worsen or any other concerns. Prescriptions: Ibuprofen [Motrin] 600 mg PO Q8HR PRN #20 tab PRN Reason: Pain Is patient prescribed a controlled substance at d/c from ED?: No Referrals: Constantine Figueroa DO [Primary Care Provider] - 1-2 days Time of Disposition: 08:45
--- NOTE | 2019-12-09 08:40 | XR ---
EXAMINATION TYPE: XR knee complete RT , 3 VIEWS DATE OF EXAM ORDERED: 12/09/2019 HISTORY: fall, pain. COMPARISON: None. FINDINGS: There is peaking of intercondylar spines. There is mild lateral joint space loss. No fract ure, dislocation or joint effusion is seen. IMPRESSION: EARLY CHANGES OF OSTEOARTHRITIS.
== END 2019-12-09 08:55 | disposition home or self-care (01) ==
LOC: EC 07:59
DX: S83.91XA Sprain of unspecified site of right knee, initial encounter (principal); I10 Essential (primary) hypertension; Z87.891 Personal history of nicotine dependence; Z86.718 Personal history of other venous thrombosis and embolism; Z88.1 Allergy status to other antibiotic agents; W19.XXXA Unspecified fall, initial encounter; Y93.E5 Activity, floor mopping and cleaning; Y92.239 Unspecified place in hospital as the place of occurrence of the external cause; Y99.0 Civilian activity done for income or pay
CPT/HCPCS: 99283

== ENCOUNTER → 2020-02-14 | Outpatient (CLI) | payer MEDICAID, OTHER | END | disposition home or self-care (01) | LOC: LABWHC1 15:35 | PROVIDERS: ATTEND Pediatrics Pediatric Infectious Diseases | DX: Z11.59 Encounter for screening for other viral diseases (principal) ==

== ENCOUNTER → 2020-02-16 | Outpatient (CLI) | payer MEDICAID, OTHER | END | disposition home or self-care (01) | LOC: LABWHC1 07:38 | PROVIDERS: ATTEND Pediatrics Pediatric Infectious Diseases | DX: Z11.59 Encounter for screening for other viral diseases (principal) ==

== ENCOUNTER 2020-03-07 10:15 | Emergency (ER) | payer MEDICAID, OTHER ==
[2020-03-07 10:19] VITALS: RESP 18; TEMP 98.3
[2020-03-07] MEDS ORDERED: SODIUM CHLORIDE 0.9% 1,000 ML IV STA (10:27)
[2020-03-07] MEDS ORDERED: METOCLOPRAMIDE 5 MG/ML 2 ML VIAL IVP STA (10:28)
[2020-03-07] MEDS ORDERED: MECLIZINE 12.5 MG TAB PO STA (10:28)
--- NOTE | 2020-03-07 10:30 | ED ---
General Adult HPI - General Chief complaint: Dizziness Stated complaint: dizzy,lightheaded,vomiting Time Seen by Provider: 03/07/20 10:21 Source: patient, RN notes reviewed Mode of arrival: wheelchair Limitations: no limitations - History of Present Illness Initial comments: Patient is a pleasant 54-year-old female presenting to the emergency department with dizziness. Onset of symptoms was 2-3 days ago. Onset was fairly sudden. Patient has had several intermittent episodes since that time. Patient at times gets nauseated and did vomit once. Patient has spinning type sensation. No confusion. No speech problems. No weakness. No visual changes. No history of similar symptoms previously. Symptoms are positional. - Related Data Home Medications Medication Instructions Recorded Confirmed Fluticasone Nasal [place] [Flonase 2 sprays EA NOSTRIL DAILY PRN 07/28/19 07/28/19 Nasal [place]] Ibuprofen [Advil] 400 mg PO Q8HR PRN 07/28/19 07/28/19 Previous Rx's Medication Instructions Recorded Disulfiram 250 mg PO DIRECTED #30 tablet 07/30/19 Metoprolol Tartrate [Lopressor] 12.5 mg PO BID #6 tab 07/30/19 Rivaroxaban [Xarelto] 15 mg PO BID-W/MEALS tab 07/30/19 Thiamine [Vitamin B-1] 100 mg PO DAILY #30 tab 07/30/19 Codeine Phosphate/Guaifenesin 5 ml PO Q4H PRN 3 Days #90 ml 12/02/19 [Guaifen-Codeine 100-10 mg/5 ml] Ibuprofen [Motrin] 600 mg PO Q8HR PRN #20 tab 12/09/19 Meclizine [Antivert] 25 mg PO TID PRN #12 tab 03/07/20 Metoclopramide HCl [Reglan] 10 mg PO Q6HR PRN #15 tablet 03/07/20 Allergies Allergy/AdvReac Type Severity Reaction Status Date / Time bacitracin Allergy Rash/Hives Verified 03/07/20 10:19 Review of Systems ROS Statement: Those systems with pertinent positive or pertinent negative responses have been documented in the HPI. ROS Other: All systems not noted in ROS Statement are negative. Constitutional: Denies: fever Eyes: Denies: eye pain ENT: Denies: ear pain Respiratory: Denies: cough Cardiovascular: Denies: chest pain Endocrine: Denies: fatigue Gastrointestinal: Reports: nausea. Denies: abdominal pain Genitourinary: Denies: dysuria Musculoskeletal: Denies: back pain Skin: Denies: rash Neurological: Reports: vertigo. Denies: headache, weakness, numbness, paresthesias, confusion Past Medical History Past Medical History: Deep Vein Thrombosis (DVT), Hypertension Additional Past Medical History / Comment(s): concussion History of Any Multi-Drug Resistant Organisms: None Reported Additional Past Surgical History / Comment(s): jaw surgery Past Psychological History: Anxiety, Depression Smoking Status: Former smoker Past Alcohol Use History: Occasional Past Drug Use History: None Reported General Exam Limitations: no limitations General appearance: alert, in no apparent distress Head exam: Present: atraumatic, normocephalic Eye exam: Present: normal appearance, PERRL, EOMI. Absent: nystagmus ENT exam: Present: normal oropharynx Neck exam: Present: normal inspection Respiratory exam: Present: normal lung sounds bilaterally Cardiovascular Exam: Present: regular rate, normal rhythm GI/Abdominal exam: Present: soft. Absent: tenderness Extremities exam: Present: normal inspection Neurological exam: Present: alert, oriented X3, CN II-XII intact. Absent: motor sensory deficit Expanded Neurological exam: Present: protecting the airway Patient oriented to: Present: person, place, time Speech: Present: fluid speech Cranial nerves: EOM's Intact: Normal, Facial Sensation: Normal Cerebellar function: Finger to Nose: Normal Sensory exam: Upper Extremity Light Touch: Normal, Lower Extremity Light Touch: Normal Motor strength exam: RUE: 5, LUE: 5, RLE: 5, LLE: 5 Eye Response: (4) open spontaneously Motor Response: (6) obeys commands Verbal Response: (5) oriented Psychiatric exam: Present: normal affect, normal mood Skin exam: Present: normal color Course Vital Signs 03/07/20 10:17 Temperature 98.3 F Pulse Rate 77 Respiratory 18 Rate Blood Pressure 151/98 O2 Sat by Pulse 99 Oximetry EKG Findings - EKG Comments: EKG Findings:: Normal sinus rhythm 79. [place] 142. QRS 98. QT 402. QTC 460. Normal axis. Normal QRS. No acute ST change Medical Decision Making - Medical Decision Making Patient reevaluated and feeling much better. Patient symptom free at this time. Patient was able to get up without difficulty. Patient updated on results and need for follow-up - Lab Data Result diagrams: 03/07/20 10:49 03/07/20 10:49 Lab Results 03/07/20 03/07/20 03/07/20 Range/Units 10:49 10:49 10:49 WBC 5.5 (3.8-10.6) k/uL RBC 3.96 (3.80-5.40) m/uL Hgb 13.0 (11.4-16.0) gm/dL Hct 39.1 (34.0-46.0) % MCV 98.8 (80.0-100.0) fL MCH 32.7 (25.0-35.0) pg MCHC 33.2 (31.0-37.0) g/dL RDW 12.8 (11.5-15.5) % Plt Count 227 (150-450) k/uL Neutrophils % 79 % Lymphocytes % 14 % Monocytes % 5 % Eosinophils % 1 % Basophils % 0 % Neutrophils # 4.3 (1.3-7.7) k/uL Lymphocytes # 0.8 L (1.0-4.8) k/uL Monocytes # 0.3 (0-1.0) k/uL Eosinophils # 0.1 (0-0.7) k/uL Basophils # 0.0 (0-0.2) k/uL PT 11.4 (9.0-12.0) sec INR 1.1 (<1.2) APTT 27.8 (22.0-30.0) sec Sodium 133 L (137-145) mmol/L Potassium 3.2 L (3.5-5.1) mmol/L Chloride 94 L (98-107) mmol/L Carbon Dioxide 31 H (22-30) mmol/L Anion Gap 8 mmol/L BUN 8 (7-17) mg/dL Creatinine 0.53 (0.52-1.04) mg/dL Est GFR (CKD-EPI)AfAm >90 (>60 ml/min/1.73 sqM) Est GFR (CKD-EPI)NonAf >90 (>60 ml/min/1.73 sqM) Glucose 93 (74-99) mg/dL Calcium 9.2 (8.4-10.2) mg/dL Total Bilirubin 0.4 (0.2-1.3) mg/dL AST 27 (14-36) U/L ALT 14 (4-34) U/L Alkaline Phosphatase 58 (38-126) U/L Total Protein 6.6 (6.3-8.2) g/dL Albumin 4.3 (3.5-5.0) g/dL - Radiology Data Radiology results: report reviewed (Computed tomography scan brain reveals no acute process) Disposition Clinical Impression: Vertigo Disposition: HOME SELF-CARE Condition: Stable Instructions (If sedation given, give patient instructions): Dizziness (ED) Additional Instructions: Please follow-up with primary care physician in the next day or 2 for recheck. Return for vomiting, increased dizziness, confusion or weakness, worsening or change in symptoms or other concerns. [id number] Antivert as needed. Prescription sent to [facility] on . Prescriptions: Meclizine [Antivert] 25 mg PO TID PRN #12 tab PRN Reason: dizziness Metoclopramide HCl [Reglan] 10 mg PO Q6HR PRN #15 tablet PRN Reason: Nausea Is patient prescribed a controlled substance at d/c from ED?: No Referrals: Constantine Figueroa DO [Primary Care Provider] - 1-2 days Time of Disposition: 12:12
[2020-03-07 11:04] LABS: Basophils % (A) 0 %; Eosinophils # (A) 0.1 k/uL (0-0.7); Eosinophils % (A) 1 %; HCT 39.1 % (34.0-46.0); Lymphocytes # (A) 0.8 k/uL (1.0-4.8); Lymphocytes % (A) 14 %; MCH 32.7 pg (25.0-35.0); MCHC 33.2 g/dL (31.0-37.0); MCV 98.8 fL (80.0-100.0); Mean Platelet Volume 6.8; Monocytes # (A) 0.3 k/uL (0-1.0); Monocytes % (A) 5 %; Neutrophils # (A) 4.3 k/uL (1.3-7.7); Neutrophils % (A) 79 %; Platelet Count 227 k/uL (150-450); RBC 3.96 m/uL (3.80-5.40); RDW 12.8 % (11.5-15.5); WBC 5.5 k/uL (3.8-10.6)
[2020-03-07 11:18] LABS: ALT 14 U/L (4-34); AST 27 U/L (14-36); African American GFR (CKD) >90 (>60 ml/min/1.73 sqM); Albumin 4.3 g/dL (3.5-5.0); Alkaline Phosphatase 58 U/L (38-126); Anion Gap 8 mmol/L; Blood Urea Nitrogen 8 mg/dL (7-17); Calcium 9.2 mg/dL (8.4-10.2); Carbon Dioxide 31 mmol/L (22-30); Chloride 94 mmol/L (98-107); Glucose 93 mg/dL (74-99); Non-African American GFR(CKD) >90 (>60 ml/min/1.73 sqM); Potassium 3.2 mmol/L (3.5-5.1); Sodium 133 mmol/L (137-145); Total Bilirubin 0.4 mg/dL (0.2-1.3); Total Protein 6.6 g/dL (6.3-8.2)
--- NOTE | 2020-03-07 11:35 | CT ---
EXAMINATION TYPE: CT brain wo con DATE OF EXAM: 03/07/2020 COMPARISON: 11/21/2019 INDICATION: Vertigo DLP: 1047.4 mGycm, Automated exposure control for dose reduction was used. CONTRAST: None CT of the brain is performed utilizing 3 mm thick sections through the posterior fossa and 3 mm thick sections through the remaining calvarium. Study is performed within 24 hours of arrival to the hosp [facility]. No abnormal hyperdensity is present to suggest an acute intracranial hemorrhage. No mass lesion is evident. No acute infarcts are evident. Ventricles and sulci are appropriate for the patient age. Paranasal sinuses and mastoid air cells within the [id number] are clear. IMPRESSIONS: 1. No acute intracranial process.
[2020-03-07] MEDS ORDERED: POTASSIUM CHLORIDE ER 20 MEQ TAB.ER PO STA (11:36)
[2020-03-07 11:44] LABS: INR 1.1 (<1.2); Partial Thromboplastin Time 27.8 sec (22.0-30.0); Prothrombin Time 11.4 sec (9.0-12.0)
[2020-03-07 12:34] VITALS: BP 142/98; PULSE 84
== END 2020-03-07 12:32 | disposition home or self-care (01) ==
LOC: EC 10:15
DX: R42 Dizziness and giddiness (principal); Z88.1 Allergy status to other antibiotic agents; Z87.891 Personal history of nicotine dependence
CPT/HCPCS: 36415; 93005; 80053; 85025; 85610; 85730; 70450; 99284; 96374; 96361; J2765

== ENCOUNTER 2020-03-26 10:07 | Inpatient (IN) | payer MEDICAID ==
--- NOTE | 2020-03-26 10:53 | ED ---
Psych HPI - General Source: patient Mode of arrival: ambulatory <dAina Zaidi - Last Filed: 03/26/20 16:40> <Thomas Katz - Last Filed: 03/26/20 18:17> - General Chief Complaint: Psychiatric Symptoms Stated Complaint: mental health Time Seen by Provider: 03/26/20 10:17 - History of Present Illness Initial Comments: Patient is a 54-year-old female, history of depression, presenting to the emergency Department for psychiatric evaluation. Patient states she has been in a major depressive state for the past 3-4 days. She states she also battles with alcoholism but states her last drink was 2 days ago. She states she did drink significantly over the weekend and states she thinks that might have brought on her depressive state. She does have suicidal thoughts, no plan. She denies any homicidal thoughts. She states she has been taking her medications as prescribed but "may have missed 1-2 days." She denies any recent fever, chills, falls or trauma. She denies any other complaints at this time. (Adina Zaidi) - Related Data Home Medications Medication Instructions Recorded Confirmed Folic Acid 1 mg PO DAILY 03/26/20 03/26/20 Hydrochlorothiazide 25 mg PO DAILY 03/26/20 03/26/20 Naltrexone HCl [Revia] 50 mg PO DAILY 03/26/20 03/26/20 Venlafaxine HCl [Effexor XR] 225 mg PO DAILY 03/26/20 03/26/20 traZODone HCL 200 mg PO HS PRN 03/26/20 03/26/20 Allergies Allergy/AdvReac Type Severity Reaction Status Date / Time bacitracin Allergy Rash/Hives Verified 03/26/20 11:02 Review of Systems ROS Other: All systems not noted in ROS Statement are negative. <Adina Zaidi - Last Filed: 03/26/20 16:40> ROS Other: All systems not noted in ROS Statement are negative. <Thomas Katz - Last Filed: 03/26/20 18:17> ROS Statement: Those systems with pertinent positive or pertinent negative responses have been documented in the HPI. Past Medical History Past Medical History: Deep Vein Thrombosis (DVT), Hypertension Additional Past Medical History / Comment(s): concussion History of Any Multi-Drug Resistant Organisms: None Reported Additional Past Surgical History / Comment(s): jaw surgery Past Psychological History: Anxiety, Depression Smoking Status: Former smoker Past Alcohol Use History: Occasional Past Drug Use History: None Reported <DyanLeonilaAdina L - Last Filed: 03/26/20 16:40> General Exam Limitations: no limitations <Adina Zaidi - Last Filed: 03/26/20 16:40> - General Exam Comments Initial Comments: GENERAL: Patient is teary-eyed on exam, and in no acute distress. HEAD: Atraumatic, normocephalic. EYES: Pupils equal round and reactive to light, extraocular movements intact, sclera anicteric, conjunctiva are normal. ENT: TMs normal, nares patent, oropharynx clear without exudates. Moist mucous membranes. NECK: Normal range of motion, supple without lymphadenopathy or JVD. LUNGS: Breath sounds clear to auscultation bilaterally and equal. No wheezes rales or rhonchi. HEART: Regular rate and rhythm without murmurs, rubs or gallops. ABDOMEN: Soft, nontender, normoactive bowel sounds. No guarding, no rebound. No masses appreciated. : Deferred EXTREMITIES: Normal range of motion, no pitting or edema. No clubbing or cyanosis. NEUROLOGICAL: Cranial nerves II through XII grossly intact. Normal speech, normal gait. PSYCH: Patient is teary-eyed, seems anxious, depressed. SKIN: Warm, Dry, normal turgor, no rashes or lesions noted. (Adina Zaidi) Course <Thomas Katz - Last Filed: 03/26/20 18:17> Vital Signs 03/26/20 03/26/20 03/26/20 10:09 10:13 11:13 Temperature 98.2 F Pulse Rate 107 H Respiratory 16 20 20 Rate Blood Pressure 125/76 O2 Sat by Pulse 96 Oximetry 03/26/20 03/26/20 03/26/20 12:13 13:13 14:00 Temperature Pulse Rate Respiratory 20 20 20 Rate Blood Pressure O2 Sat by Pulse Oximetry 03/26/20 15:00 Temperature 98.2 F Pulse Rate 82 Respiratory 20 Rate Blood Pressure 150/77 O2 Sat by Pulse 97 Oximetry - Reevaluation(s) Reevaluation #1: 03/26/20 18:16 PA supervision: I did review the patient's case she does present with complaints of major depression and is demonstrated on examination. He was evaluated by psychiatric service and will be admitted for inpatient treatment. (Thomas Katz) Medical Decision Making <Adina Zaidi - Last Filed: 03/26/20 16:40> - Medical Decision Making Patient is a 54-year-old female history of depression, alcohol abuse, presenting for psychiatric evaluation. Patient does admit to suicidal ideations, no plan, no homicidal thoughts. Patient was evaluated by EPS after she was sober. Patient will be admitted to psychiatric unit. Patient is agreement with this plan of care. Case discussed with Dr. Katz. (Adina Zaidi) - Lab Data Lab Results 03/26/20 Range/Units 11:19 Urine Opiates Screen Not Detected (NotDetected) Ur Oxycodone Screen Not Detected (NotDetected) Urine Methadone Screen Not Detected (NotDetected) Ur Propoxyphene Screen Not Detected (NotDetected) Ur Barbiturates Screen Not Detected (NotDetected) U Tricyclic Antidepress Not Detected (NotDetected) Ur Phencyclidine Scrn Not Detected (NotDetected) Ur Amphetamines Screen Not Detected (NotDetected) U Methamphetamines Scrn Not Detected (NotDetected) U Benzodiazepines Scrn Not Detected (NotDetected) Urine Cocaine Screen Not Detected (NotDetected) U Marijuana (THC) Screen Not Detected (NotDetected) Disposition Decision Date: 03/26/20 Decision Time: 15:43 <Adina Zaidi - Last Filed: 03/26/20 16:40> <Thomas Katz - Last Filed: 03/26/20 18:17> Clinical Impression: Depression, major, Suicidal ideation Disposition: TRANSFER TO PSYCH HOSP/UNIT Condition: Stable Referrals: Constantine Figueroa DO [Primary Care Provider] - 1-2 days
[2020-03-26 11:38] LABS: Amphetamine Screen,Urine Not Detected (NotDetected); Barbiturate Screen,Urine Not Detected (NotDetected); Benzodiazepines Screen,Urine Not Detected (NotDetected); Cocaine Screen,Urine Not Detected (NotDetected); Methadone Screen, Urine Not Detected (NotDetected); Opiate Screen,Urine Not Detected (NotDetected); Oxycodone Screen, Urine Not Detected (NotDetected); Phencyclidine Screen,Urine Not Detected (NotDetected); Tricyclic Antidepressant,Urine Not Detected (NotDetected); Urn Cannabinoid Scrn Not Detected (NotDetected)
[2020-03-26] MEDS ORDERED: MAGNESIUM HYDROXIDE 2,400 MG/10 ML CUP PO PRN (19:10)
[2020-03-26] MEDS ORDERED: LORazepam 1 MG TAB PO PRN ×2 (19:10→19:44)
[2020-03-26] MEDS ORDERED: MAG HYDROX/AL HYDROX/SIMETH 30 ML CUP PO PRN (19:10)
[2020-03-26] MEDS ORDERED: LORazepam 2 MG/ML INJ IM PRN ×2 (19:13→19:44)
[2020-03-26] MEDS ORDERED: LORazepam 2 MG/ML INJ IM STA (19:46)
[2020-03-26] MEDS: traZODone HCL 100 MG TAB PO PRN (20:56)
[2020-03-27 08:20] LABS: Basophils % (A) 0 %; Eosinophils # (A) 0.1 k/uL (0-0.7); Eosinophils % (A) 1 %; HGB 14.8 gm/dL (11.4-16.0); Lymphocytes # (A) 1.1 k/uL (1.0-4.8); Lymphocytes % (A) 15 %; MCH 32.8 pg (25.0-35.0); MCHC 32.9 g/dL (31.0-37.0); MCV 99.5 fL (80.0-100.0); Mean Platelet Volume 7.2; Monocytes # (A) 0.4 k/uL (0-1.0); Monocytes % (A) 6 %; Neutrophils # (A) 5.5 k/uL (1.3-7.7); Neutrophils % (A) 77 %; Platelet Count 235 k/uL (150-450); RBC 4.52 m/uL (3.80-5.40); RDW 12.9 % (11.5-15.5); WBC 7.2 k/uL (3.8-10.6)
[2020-03-27 08:27] LABS: ALT 49 U/L (4-34); AST 110 U/L (14-36); African American GFR (CKD) >90 (>60 ml/min/1.73 sqM); Albumin 4.6 g/dL (3.5-5.0); Alkaline Phosphatase 55 U/L (38-126); Anion Gap 12 mmol/L; Blood Urea Nitrogen 8 mg/dL (7-17); Calcium 9.7 mg/dL (8.4-10.2); Carbon Dioxide 27 mmol/L (22-30); Chloride 95 mmol/L (98-107); Cholesterol 225 mg/dL (<200); Glucose 86 mg/dL (74-99); Non-African American GFR(CKD) >90 (>60 ml/min/1.73 sqM); Sodium 134 mmol/L (137-145); Total Protein 6.8 g/dL (6.3-8.2); Triglycerides 84 mg/dL (<150)
[2020-03-27 08:35] LABS: LDL Cholesterol,Calculated 70 mg/dL (0-99)
[2020-03-27 08:40] LABS: HDL Cholesterol 138 mg/dL (40-60)
[2020-03-27] MEDS: FOLIC ACID 1 MG TAB PO SCH (08:40)
[2020-03-27] MEDS: THIAMINE 100 MG TAB PO SCH (08:40)
[2020-03-27] MEDS: hydroCHLOROthiazide 25 MG TAB PO SCH (08:40)
[2020-03-27] MEDS: VENLAFAXINE HCL ER 75 MG CAP PO SCH (08:40)
[2020-03-27] MEDS ORDERED: NALTREXONE HCL 50 MG TAB PO SCH (09:00)
--- NOTE | 2020-03-27 13:33 | P.HP ---
Psychiatric H&P - . H&P Date: 03/27/20 History & Physical: IDENTIFYING DATA: She is a 54-year-old female admitted to the psychiatric unit with complaints of depression and suicidal ideation. HISTORY OF PRESENT ILLNESS: I reviewed the medical record and interviewed the patient. She has a history of alcohol use disorder and depression. Her depression worsens during periods of increased alcohol use. She has been drinking on weekends and her days off for the last year. Over this weekend and she consumed a greater quantity of vodka than normal. She stated on Wednesday after work she went to the store and bought a half a gallon of vodka. She drank throughout the weekend. On Wednesday when she was expected go to work she developed withdrawal symptoms and increasing feelings depression with suicidal thoughts. She remained in bed until she presented to the ED yesterday afternoon. Her BAT on presentation to the ED was 0.113; her UDS was negative for drugs of abuse Her initial CIWA was 14 and she has received when necessary doses of Ativan for alcohol withdrawal. She has no signs or symptoms of delirium. In addition to the alcohol use problems she has been treated for depression for several years initially by her primary provider and most recently by Dr. Harrison at [facility] with trazodone 200 mg at bedtime, Effexor XR 225 mg daily and ReVia 50 mg daily. She reported improved mood this morning and noted that her mood improves the longer she remains abstinent from alcohol. She currently denied suicidal ideation, intent or plan. She denied a history of periods of elevated mood or sustained irritability suggestive of michael or hypomania. She denied history of auditory, visual or olfactory hallucinations, ideas reference, thought insertion etc. suggestive of a psychotic illness. She denied persistent uncontrolled anxiety outside of acut e alcohol withdrawal. PAST PSYCHIATRIC HISTORY: She had one prior admission to this unit in October 2015 when she presented with complaints of increased depression and suicidal ideation. Prior to that admission she was consuming approximately 1 L of vodka per day. PAST MEDICAL HISTORY: She has a history of hypertension ALLERGIES: Bacitracin SUBSTANCE USE HISTORY: She began drinking when she was an adolescent. Initially she consumed only drink beer. She an alcoholic and her alcohol use increase during their marriage. 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 She began drinking vodka about 2006. She denied that she has ever incurred a DUI but in 2010 fell down a set of stairs in a drunken stupor and was injured. She admitted herself to [facility]. Her longest period of sobriety was 20 months when [facility]. She first entered [facility] after discharge from this facility in 2015. She relapsed to alcohol after she left the program. 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 She again relapsed to alcohol after she left the program. She denied the use of other drugs with the exception of marijuana. FAMILY PSYCHIATRIC/SUBSTANCE USE HISTORY: She has several uncles who have a history of alcohol use problems. LEGAL HISTORY: She denied a history of legal problems SOCIAL HISTORY: She is a second of 8 children. She was raised in an intact household. She denied a history of physical, emotional or sexual abuse. She completed 12th grade. She her after 10 years of marriage. They have no children. She worked in the [employer] and has a sap specialist at a local restaurant for 15 years. 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 MENTAL STATUS EXAM: She presented as a tall casually groomed 54-year-old female who was pleasant on approach. She made eye contact and attended the interview. She had no distinguishing features or prominent physical abnormalities. She had a blunted but bright facial expression. She is alert and oriented to person, place and time. She has slight psychomotor retardation but no abnormal involuntary movements. Speech was spontaneous with normal rate, volume and rhythm. Her affect was depressed but reactive. She denied current suicidal ideation or wishes. She denied homicidal ideation. She expresses feelings of hopelessness and helplessness particularly with regard to her chronic and recurrent alcohol use. She ruminated about circumstances that led to this hospitalization. She did not express ideas reference, paranoid ideation or delusions. Her thinking was abstract and associations were coherent, logical and goal directed. She denied hallucinations did not appear to responding to internal stimuli. Global impression of intellect is average. She is aware of his illness and need for treatment. STRENGTHS: Stable housing, stable employment, stable income, supportive family WEAKNESSES: Chronic alcohol use disorder IMPRESSION: She is a 54-year-old female who has a history of an alcohol use disorder and a recurrent depressive disorder. The 2 disorders coincided where her depression gets worse during periods of increased alcohol use. She presented with increased depression and thoughts of suicide in context of increasing alcohol use. She has had substantial periods of sobriety but only while she was residents of a recovery program. She best be treated inpatient basis with psychopharmacology and multiple therapy and monitor for alcohol withdrawal symptoms and transferred to medicine if she has signs and symptoms of delirium. PRINCIPLE DIAGNOSIS: Alcohol withdrawal, alcohol use disorder severe, unspecified depressive disorder, rule out alcohol induced depressive disorder, rule out major depressive disorder recurrent RECOMMENDATION: Admitted to the psychiatric unit. Safety precautions. Consult medicine for initial physical exam and medical history. milking worker to complete the initial psychosocial coordinate discharge and aftercare. Continue trazodone 200 mg at bedtime, Effexor XR 225 mg daily and naltrexone feeling milligrams daily. Continue hydrochlorothiazide 25 mg daily for the treatment of hypertension. Consider augmentation strategies for depression. Consider an alternative to naltrexone for her alcohol use disorder. Encourage participation in therapeutic groups and activities. Evaluate clinical status response to treatment daily basis. Allergies Allergy/AdvReac Type Severity Reaction Status Date / Time bacitracin Allergy Rash/Hives Verified 03/26/20 11:02 Vital Signs Temp 98.6 F 03/27/20 07:02 Pulse 101 H 03/27/20 07:02 Resp 16 03/27/20 07:02 BP 143/77 03/27/20 07:02 Pulse Ox 98 03/26/20 20:32 Intake & Output 03/26/20 03/27/20 03/27/20 18:59 06:59 18:59 Weight 92.533 kg 89.811 kg Laboratory Last Values WBC 7.2 k/uL (3.8-10.6) 03/27/20 07:37 RBC 4.52 m/uL (3.80-5.40) 03/27/20 07:37 Hgb 14.8 gm/dL (11.4-16.0) 03/27/20 07:37 Hct 45.0 % (34.0-46.0) 03/27/20 07:37 MCV 99.5 fL (80.0-100.0) 03/27/20 07:37 MCH 32.8 pg (25.0-35.0) 03/27/20 07:37 MCHC 32.9 g/dL (31.0-37.0) 03/27/20 07:37 RDW 12.9 % (11.5-15.5) 03/27/20 07:37 Plt Count 235 k/uL (150-450) 03/27/20 07:37 Neutrophils % 77 % 03/27/20 07:37 Lymphocytes % 15 % 03/27/20 07:37 Monocytes % 6 % 03/27/20 07:37 Eosinophils % 1 % 03/27/20 07:37 Basophils % 0 % 03/27/20 07:37 Neutrophils # 5.5 k/uL (1.3-7.7) 03/27/20 07:37 Lymphocytes # 1.1 k/uL (1.0-4.8) 03/27/20 07:37 Monocytes # 0.4 k/uL (0-1.0) 03/27/20 07:37 Eosinophils # 0.1 k/uL (0-0.7) 03/27/20 07:37 Basophils # 0.0 k/uL (0-0.2) 03/27/20 07:37 Sodium 134 mmol/L (137-145) L 03/27/20 07:37 Potassium 4.0 mmol/L (3.5-5.1) 03/27/20 07:37 Chloride 95 mmol/L (98-107) L 03/27/20 07:37 Carbon Dioxide 27 mmol/L (22-30) 03/27/20 07:37 Anion Gap 12 mmol/L 03/27/20 07:37 BUN 8 mg/dL (7-17) 03/27/20 07:37 Creatinine 0.65 mg/dL (0.52-1.04) 03/27/20 07:37 Est GFR (CKD-EPI)AfAm >90 (>60 ml/min/1.73 sqM) 03/27/20 07:37 Est GFR (CKD-EPI)NonAf >90 (>60 ml/min/1.73 sqM) 03/27/20 07:37 Glucose 86 mg/dL (74-99) 03/27/20 07:37 Calcium 9.7 mg/dL (8.4-10.2) 03/27/20 07:37 Total Bilirubin 2.0 mg/dL (0.2-1.3) H 03/27/20 07:37 AST 110 U/L (14-36) H 03/27/20 07:37 ALT 49 U/L (4-34) H 03/27/20 07:37 Alkaline Phosphatase 55 U/L (38-126) 03/27/20 07:37 Total Protein 6.8 g/dL (6.3-8.2) 03/27/20 07:37 Albumin 4.6 g/dL (3.5-5.0) 03/27/20 07:37 Triglycerides 84 mg/dL (<150) 03/27/20 07:37 Cholesterol 225 mg/dL (<200) H 03/27/20 07:37 LDL Cholesterol, Calc 70 mg/dL (0-99) 03/27/20 07:37 HDL Cholesterol 138 mg/dL (40-60) H 03/27/20 07:37 TSH 2.660 mIU/L (0.465-4.680) 03/27/20 07:37 Urine Opiates Screen Not Detected (NotDetected) 03/26/20 11:19 Ur Oxycodone Screen Not Detected (NotDetected) 03/26/20 11:19 Urine Methadone Screen Not Detected (NotDetected) 03/26/20 11:19 Ur Propoxyphene Screen Not Detected (NotDetected) 03/26/20 11:19 Ur Barbiturates Screen Not Detected (NotDetected) 03/26/20 11:19 U Tricyclic Antidepress Not Detected (NotDetected) 03/26/20 11:19 Ur Phencyclidine Scrn Not Detected (NotDetected) 03/26/20 11:19 Ur Amphetamines Screen Not Detected (NotDetected) 03/26/20 11:19 U Methamphetamines Scrn Not Detected (NotDetected) 03/26/20 11:19 U Benzodiazepines Scrn Not Detected (NotDetected) 03/26/20 11:19 Urine Cocaine Screen Not Detected (NotDetected) 03/26/20 11:19 U Marijuana (THC) Screen Not Detected (NotDetected) 03/26/20 11:19 03/27/20 13:12
[2020-03-27 18:41] LABS: Hemoglobin A1C 5.4 % (4.0-6.0)
--- NOTE | 2020-03-27 20:42 | P.CONS ---
History of Present Illness - History of Present Illness This is a pleasant 54 years old female with past medical history of deep venous thrombosis, hypertension, Depression, who presents with signs symptoms of depression and suicidal ideation Patient denies chest pain, dyspnea, and no nausea vomiting, no change in urine or bowel habits. No fever She states she drinks alcohol heavily over the weekend but not every day Labs are reviewed showing unremarkable CBC, sodium 134, potassium is normal, creatinine normal 0.6, AST is high at 110, ALT high at 49, bilirubin 2.0. Cholesterol 225, LDL 70 HDL control his high 138, TSH normal 2.6. Urine drug screen is negative Review of Systems CONSTITUTIONAL: No fever, no malaise, no fatigue. HEENT: No recent visual problems or hearing problems. Denied any sore throat. CARDIOVASCULAR: No orthopnea, PND, no palpitations, no syncope. PULMONARY: No shortness of breath, no cough, no hemoptysis. GASTROINTESTINAL: No diarrhea, no nausea, no vomiting, no abdominal pain. Normoactive bowel sounds. NEUROLOGICAL: No headaches, no weakness, no numbness. HEMATOLOGICAL: Denies any bleeding or petechiae. GENITOURINARY: Denies any burning micturition, frequency, or urgency. MUSCULOSKELETAL/RHEUMATOLOGICAL: Denies any joint pain, swelling, or any muscle pain. ENDOCRINE: Denies any polyuria or polydipsia. Past Medical History Past Medical History: Deep Vein Thrombosis (DVT), Hypertension Additional Past Medical History / Comment(s): concussion History of Any Multi-Drug Resistant Organisms: None Reported Additional Past Surgical History / Comment(s): jaw surgery Past Psychological History: Anxiety, Depression Smoking Status: Former smoker Past Alcohol Use History: Occasional Past Drug Use History: None Reported Medications and Allergies Home Medications Medication Instructions Recorded Confirmed Type Folic Acid 1 mg PO DAILY 03/26/20 03/26/20 History Hydrochlorothiazide 25 mg PO DAILY 03/26/20 03/26/20 History Naltrexone HCl [Revia] 50 mg PO DAILY 03/26/20 03/26/20 History Venlafaxine HCl [Effexor XR] 225 mg PO DAILY 03/26/20 03/26/20 History traZODone HCL 200 mg PO HS PRN 03/26/20 03/26/20 History Allergies Allergy/AdvReac Type Severity Reaction Status Date / Time bacitracin Allergy Rash/Hives Verified 03/26/20 11:02 Physical Exam Vitals: Vital Signs Temp Pulse Pulse Resp BP BP Pulse Ox 03/27/20 12:00 99.0 F 03/27/20 07:02 98.6 F 101 H 16 143/77 03/26/20 20:45 77 131/76 03/26/20 20:32 98.1 F 109 H 18 148/100 98 GENERAL: The patient is alert and oriented x3, not in any acute distress. Well developed, well nourished. HEENT: Pupils are round and equally reacting to light. EOMI. No scleral icterus. No conjunctival pallor. Normocephalic, atraumatic. No pharyngeal erythema. No thyromegaly. CARDIOVASCULAR: S1 and S2 present. No murmurs, rubs, or gallops. PULMONARY: Chest is clear to auscultation, no wheezing or crackles. ABDOMEN: Soft, nontender, nondistended, normoactive bowel sounds. No palpable organomegaly. MUSCULOSKELETAL: No joint swelling or deformity. EXTREMITIES: No cyanosis, clubbing, or pedal edema. NEUROLOGICAL: Gross neurological examination did not reveal any focal deficits. SKIN: No rashes. No petechiae Results CBC & Chem 7: 03/27/20 07:37 03/27/20 07:37 Labs: Abnormal Lab Results - Last 24 Hours (Table) 03/27/20 Range/Units 07:37 Sodium 134 L (137-145) mmol/L Chloride 95 L (98-107) mmol/L Total Bilirubin 2.0 H (0.2-1.3) mg/dL AST 110 H (14-36) U/L ALT 49 H (4-34) U/L Cholesterol 225 H (<200) mg/dL HDL Cholesterol 138 H (40-60) mg/dL Assessment and Plan Assessment: Depression and suicidal ideation and another cycle masses, management as per sec primary team Hypertension Alcoholic abuse and binge drinking, continue with folic acid and thiamine, continue with Ativan as needed, patient is counseled Alcoholic transaminitis with elevated liver enzymes, mostly due to to alcohol drinking effect cholesterol is mildly elevated, start small dose Lipitor History of DVT not on anticoagulation DVT prophylaxis: Earlier mobilization, patient is walking normally GI prophylaxis: No need We recommend patient follow up with her primary care doctor Dr. Figueroa within 1 week after discharge, patient was instructed with the same Thank you for consulting us, please feel free to contact us for any further question or clarification
[2020-03-27] MEDS: ATORVASTATIN 20 MG TAB PO SCH (20:51)
[2020-03-27] MEDS: traZODone HCL 100 MG TAB PO PRN (20:52)
[2020-03-28] MEDS: ACETAMINOPHEN TAB 325 MG TAB PO PRN (05:30)
[2020-03-28 08:31] LABS: Bilirubin, Delta 0.1 mg/dL (0.0-0.2); Bilirubin,Unconjugated 1.2 mg/dL (0.0-1.1); Total Bilirubin 1.3 mg/dL (0.2-1.3); Total Protein 6.1 g/dL (6.3-8.2)
[2020-03-28] MEDS: hydroCHLOROthiazide 25 MG TAB PO SCH (09:15)
[2020-03-28] MEDS: THIAMINE 100 MG TAB PO SCH (09:15)
[2020-03-28] MEDS: VENLAFAXINE HCL ER 75 MG CAP PO SCH (09:15)
[2020-03-28] MEDS: FOLIC ACID 1 MG TAB PO SCH (09:15)
[2020-03-28] MEDS: LITHIUM CARBONATE 300 MG CAP PO SCH ×2 (09:17→20:41)
[2020-03-28] MEDS: ACAMPROSATE CALCIUM 333 MG TABLET.DR PO SCH ×3 (11:14→20:40)
--- NOTE | 2020-03-28 15:36 | P.PN ---
Progress Note - Text Progress Note Date: 03/28/20 Clinical Problems: Alcohol withdrawal, alcohol use disorder severe, unspecified depressive disorder, rule out alcohol induced depressive disorder, rule out major depressive disorder recurrent Interim history: I reviewed the medical record, interviewed the patient and discuss her treatment and treatment plan during team meeting. She denied alcohol withdrawal symptoms. She reported improvement in her mood. We discussed relationship between her mood and her alcohol use. 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 She is also reluctant to start Antabuse and we discuss her ambivalence about making such a commitment. As an alternative we decided to start lithium's 3 mg by mouth twice a day and Campral 333 mg 3 times a day. She is attended therapeutic groups and activities. She is posed no management problems and is a pale dyscontrol. Medical consult appreciated. Mental status exam: She presented as a tall casually groomed female who was pleasant on approach. She made eye contact and attended to the interview. She showed no abnormality of psychomotor activity. His speech was spontaneous with normal rate, rhythm and volume. His affect was depressed but reactive. She denied suicidal ideation or wishes. She denied feeling hopeless but expressed feelings of helplessness and worthlessness regarding her alcohol use. She did not express ideas reference, paranoid ideation or delusions. Her thinking was abstract and associations were coherent, logical and goal directed. She denied hallucinations and did not appear to responding to internal stimuli. Assessment: She is minimal alcohol withdrawal symptoms and her depressive symptoms improved with abstinence. Plan: Continue inpatient treatment. Continue safety precautions. Continue Effexor XR 225 mg daily and trazodone 100 mg at bedtime when necessary for sleep. Begin lithium carbonate 300 mg by mouth twice a day and titrated to clinical response and tolerance. Discontinue naltrexone and begin Campral 333 mg by mouth 3 times a day. Encourage continued participation in therapeutic groups and activities. Evaluate clinical status response to treatment daily basis.
[2020-03-28] MEDS ORDERED: RIVAROXABAN 20 MG TAB PO SCH (17:30)
[2020-03-28 17:34] LABS: Hepatitis A Antibody IgM Non-Reactive (Non-Reactive); Hepatitis B Core IgM Non-Reactive (Non-Reactive); Hepatitis B Surface Antigen Non-Reactive (Non-Reactive); Hepatitis C IgG Antibody Non-Reactive (Non-Reactive)
[2020-03-28 19:07] LABS: Appearance,Urine Clear (Clear); Bacteria,Urine Rare /hpf; Bilirubin,Urine Negative (Negative); Blood,Urine Small (Negative); Color,Urine Light Yellow; Glucose,Urine (UA) Negative (Negative); Ketones,Urine Negative (Negative); Leukocyte Esterase,Urine Large (Negative); Mucus,Urine Rare /hpf; Nitrite,Urine Negative (Negative); PH, Urine 6.5 (5.0-8.0); Protein,Urine Negative (Negative); RBC,Urine 4 /hpf (0-5); Specific Gravity,Urine 1.006 (1.001-1.035); Urobilinogen,Urine <2.0 mg/dL (<2.0); WBC,Urine 43 /hpf (0-5)
[2020-03-28] MEDS: ATORVASTATIN 20 MG TAB PO SCH (20:41)
[2020-03-28] MEDS: traZODone HCL 100 MG TAB PO PRN (21:30)
[2020-03-29 07:18] LABS: Bilirubin,Unconjugated 0.9 mg/dL (0.0-1.1); Total Bilirubin 0.9 mg/dL (0.2-1.3); Total Protein 6.2 g/dL (6.3-8.2)
[2020-03-29] MEDS: THIAMINE 100 MG TAB PO SCH (08:50)
[2020-03-29] MEDS: ACAMPROSATE CALCIUM 333 MG TABLET.DR PO SCH ×3 (08:50→20:50)
[2020-03-29] MEDS: FOLIC ACID 1 MG TAB PO SCH (08:50)
[2020-03-29] MEDS: LITHIUM CARBONATE 300 MG CAP PO SCH (08:50)
[2020-03-29] MEDS: VENLAFAXINE HCL ER 75 MG CAP PO SCH (08:50)
[2020-03-29] MEDS: RIVAROXABAN 20 MG TAB PO SCH (08:50)
[2020-03-29] MEDS: hydroCHLOROthiazide 25 MG TAB PO SCH (08:50)
--- NOTE | 2020-03-29 15:07 | P.PN ---
Progress Note - Text Progress Note Date: 03/29/20 Clinical Problems: Alcohol withdrawal, alcohol use disorder severe, unspecified depressive disorder, rule out alcohol induced depressive disorder, rule out major depressive disorder recurrent Interim history: I reviewed the medical record, interviewed the patient and discuss her treatment and treatment plan during team meeting. She complained of experiencing blurred vision, television, lightheadedness and sweating after she took the morning dose of comparable and lithium today. She did not have these symptoms after taking the medications yesterday. She denied feeling depressed or having thoughts of or suicide. She denied alcohol withdrawal symptoms. He just got options and agreed to discontinue the lithium and proceed with a trial of Campral Mental status exam: She presented as a tall casually groomed female who was pleasant on approach. She made eye contact and attended to the interview. She showed no abnormality of psychomotor activity. His speech was spontaneous with normal rate, rhythm and volume. His affect was depressed but reactive. She denied suicidal ideation or wishes. She denied feeling hopeless but expressed feelings of helplessness and worthlessness regarding her alcohol use. She did not express ideas reference, paranoid ideation or delusions. Her thinking was abstract and associations were coherent, logical and goal directed. She denied hallucinations and did not appear to responding to internal stimuli. Assessment: She is much improved from admission. His apparent side effects he had a stammer Campral. Given that the Campral is more important to her recovery we discontinued lithium and we'll proceed with the Trial. Plan: Continue inpatient treatment. Continue safety precautions. Continue Effexor XR 225 mg daily and trazodone 100 mg at bedtime when necessary for sleep. Discontinue lithium carbonate 300 mg by mouth twice a day. Continue Campral 333 mg by mouth 3 times a day. Encourage continued participation in therapeutic groups and activities. Evaluate clinical status response to treatment daily basis.
[2020-03-29] MEDS: ATORVASTATIN 20 MG TAB PO SCH (19:54)
[2020-03-29] MEDS: traZODone HCL 100 MG TAB PO SCH (20:50)
[2020-03-30] MEDS: FOLIC ACID 1 MG TAB PO SCH (08:31)
[2020-03-30] MEDS: ACAMPROSATE CALCIUM 333 MG TABLET.DR PO SCH ×3 (08:31→20:52)
[2020-03-30] MEDS: hydroCHLOROthiazide 25 MG TAB PO SCH (08:31)
[2020-03-30] MEDS: RIVAROXABAN 20 MG TAB PO SCH (08:32)
[2020-03-30] MEDS: VENLAFAXINE HCL ER 75 MG CAP PO SCH (08:32)
[2020-03-30] MEDS: THIAMINE 100 MG TAB PO SCH (08:32)
--- NOTE | 2020-03-30 17:44 | P.PN ---
Progress Note - Text Progress Note Date: 03/30/20 Interval history: Patient is seen in cross coverage today. She does describe having an issue with some blurred vision which she thinks may be related to the Campral. Her mood is doing much better. She does not seem to voice any other adverse psychotropic medication side effects. Mental status exam: She presents as pleasant and cooperative. Her speech is fluent, not rapid or pressured. Thought processes are organized. Her mood is improved. She does not verbalize any thoughts of harm to self or others. No evidence of psychosis or agitation. Plan: Patient will be maintained on current psychotropic medication regimen. She would like to continue the Campral at this point in time and continue to monitor him in terms of from a side effect standpoint. We'll continue to provide cross coverage for this patient through the weekend
[2020-03-30] MEDS: ATORVASTATIN 20 MG TAB PO SCH (20:52)
[2020-03-30] MEDS: traZODone HCL 100 MG TAB PO SCH (20:53)
[2020-03-31] MEDS: ACETAMINOPHEN TAB 325 MG TAB PO PRN ×2 (05:07→15:14)
[2020-03-31 06:07] VITALS: RESP 14
[2020-03-31] MEDS: FOLIC ACID 1 MG TAB PO SCH (08:29)
[2020-03-31] MEDS: ACAMPROSATE CALCIUM 333 MG TABLET.DR PO SCH ×3 (08:29→21:02)
[2020-03-31] MEDS: hydroCHLOROthiazide 25 MG TAB PO SCH (08:30)
[2020-03-31] MEDS: RIVAROXABAN 20 MG TAB PO SCH (08:30)
[2020-03-31] MEDS: THIAMINE 100 MG TAB PO SCH (08:30)
[2020-03-31] MEDS: VENLAFAXINE HCL ER 75 MG CAP PO SCH (08:30)
--- NOTE | 2020-03-31 13:41 | P.PN ---
Progress Note - Text Progress Note Date: 03/31/20 Interval history: Patient is seen in cross coverage today. She says she didn't sleep that well last night, she was dealing with some pain and then relays that she threw up this morning. Her stomach is more settled now and she did eat some it sounds for breakfast and lunch. Her vision is doing much better today. She does talk about looking at discharge planning for tomorrow. Mental status exam: She is alert and cooperative with the interview. Her speech is fluent, not rapid or pressured. Thought processes are organized. Her mood she describes is doing well. She denies any thoughts of harm to self or others. No evidence of psychosis or agitation. Plan: Patient will be maintained on current psychotropic medication regimen. Continue to monitor for any medication side effects and monitor her ongoing response to treatment. She also does talk about her outpatient treatment with [facility].
[2020-03-31] MEDS: ATORVASTATIN 20 MG TAB PO SCH (21:03)
[2020-03-31] MEDS: traZODone HCL 100 MG TAB PO SCH (21:03)
[2020-04-01 07:20] VITALS: BP 103/62; PULSE 94
[2020-04-01] MEDS: ACAMPROSATE CALCIUM 333 MG TABLET.DR PO SCH (08:34)
[2020-04-01] MEDS: RIVAROXABAN 20 MG TAB PO SCH ×2 (08:34→08:36)
[2020-04-01] MEDS: THIAMINE 100 MG TAB PO SCH (08:36)
[2020-04-01] MEDS: FOLIC ACID 1 MG TAB PO SCH (08:36)
[2020-04-01] MEDS: VENLAFAXINE HCL ER 75 MG CAP PO SCH (08:36)
[2020-04-01] MEDS: hydroCHLOROthiazide 25 MG TAB PO SCH (08:36)
--- NOTE | 2020-04-01 13:37 | P.DS ---
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 She has a history of alcohol use disorder and depression. Her depression worsens during periods of increased alcohol use. She has been drinking on weekends and her days off for the last year. Over this weekend and she consumed a greater quantity of vodka than normal. She stated on Wednesday after work she went to the store and bought a half a gallon of vodka. She drank throughout the weekend. On Wednesday when she was expected go to work she developed withdrawal symptoms and increasing feelings depression with suicidal thoughts. She remained in bed until she presented to the ED yesterday afternoon. Her BAT on presentation to the ED was 0.113; her UDS was negative for drugs of abuse Her initial CIWA was 14 and she has received when necessary doses of Ativan for alcohol withdrawal. She has no signs or symptoms of delirium. In addition to the alcohol use problems she has been treated for depression for several years initially by her primary provider and most recently by Dr. Harrison at [facility] with trazodone 200 mg at bedtime, Effexor XR 225 mg daily and ReVia 50 mg daily. She reported improved mood this morning and noted that her mood improves the longer she remains abstinent from alcohol. She currently denied suicidal ideation, intent or plan. She denied a history of periods of elevated mood or sustained irritability suggestive of michael or hypomania. She denied history of auditory, visual or olfactory hallucinations, ideas reference, thought insertion etc. suggestive of a psychotic illness. She denied persistent uncontrolled anxiety outside of acute alcohol withdrawal. She had one prior admission to this unit in October 2015 when she presented wi th complaints of increased depression and suicidal ideation. Prior to that admission she was consuming approximately 1 L of vodka per day. HOSPITAL COURSE: We admitted her to the psychiatric unit under the care of this bond underwriter. We provided a comprehensive biopsychosocial assessment. The splunk consultant core fitter completed initial physical exam and medical history and diagnosis hypertension and mild elevation in cholesterol. He recommended to continue folic acid, thiamine and started Lipitor. He managed for alcohol withdrawal with Ativan using the CIWA protocol. She had minimal to moderate alcohol withdrawal symptoms uncomplicated by delirium or psychosis. He continued her outpatient antidepressants including Effexor XR 225 mg daily and trazodone 200 mg at bedtime. Her mood improved with abstinence. She did not tolerate a trial of lithium for augmentation of the antidepressant. We discussed treatment of her chronic alcohol and alcohol use problems. She was ambivalent about Antabuse but agreed to a trial of Campral. She experienced some lightheadedness and blurred vision with Campral. She participated actively in therapeutic groups and activities. She posed no management problem and had no episodes of behavioral dyscontrol. MENTAL STATUS AT DISCHARGE: She presented as a tall casually groomed 54-year-old female who was pleasant on approach. She made eye contact and attended to the interview. She had no distinguishing features or prominent physical abnormalities. She had a bright facial expression. She was alert to person, place and time. She showed no abnormality of psychomotor activity. Her speech was spontaneous with normal rate, rhythm and volume. His affect was bright and stable and appropriate. She denies suicidal ideation and wishes. She denied homicidal ideation. She denied feeling hopeless, helpless or worthless. She denies express ideas reference, paranoid ideation or delusions. Her thinking was abstract and associations were coherent, logical goal-directed. She denied hallucinations and did not appear to be responding to internal stimuli. DISPOSITION: She will return to her former address and follow-up with [facility]. Her discharge medications included Effexor XR 225 mg daily, trazodone 200 mg at bedtime and Campral 333 milligrams 3 times a day. Patient Condition at Discharge: Stable Plan - Discharge Summary New Discharge Prescriptions: Rickey Acamprosate Calcium [Campral] 333 mg PO TID #90 tablet. Atorvastatin [Lipitor] 20 mg PO HS #30 tab Thiamine [Vitamin B-1] 100 mg PO DAILY #30 tab Rivaroxaban [Xarelto] 20 mg PO DAILY tab Continue traZODone HCL 200 mg PO HS PRN PRN Reason: Insomnia Venlafaxine HCl [Effexor XR] 225 mg PO DAILY Folic Acid 1 mg PO DAILY Hydrochlorothiazide 25 mg PO DAILY Discontinued Naltrexone HCl [Revia] 50 mg PO DAILY Discharge Medication List Folic Acid 1 mg PO DAILY 03/26/20 [History] Hydrochlorothiazide 25 mg PO DAILY 03/26/20 [History] Venlafaxine HCl [Effexor XR] 225 mg PO DAILY 03/26/20 [History] traZODone HCL 200 mg PO HS PRN 03/26/20 [History] Acamprosate Calcium [Campral] 333 mg PO TID #90 tablet. 04/01/20 [Rx] Atorvastatin [Lipitor] 20 mg PO HS #30 tab 04/01/20 [Rx] Rivaroxaban [Xarelto] 20 mg PO DAILY tab 04/01/20 [Rx] Thiamine [Vitamin B-1] 100 mg PO DAILY #30 tab 04/01/20 [Rx] Follow up Appointment(s)/Referral(s): [facility] [Outside] - 04/03/20 9:00 am (04/03/20 at 9 am with Chirag Hui.) Constantine Figueroa DO [Primary Care Provider] - 1-2 days Patient Instructions/Handouts: Depression (DC), Abuse of Alcohol (DC) Activity/Diet/Wound Care/Special Instructions: Activity and diet as tolerated. Avoid the use of street drugs and alcohol. Take all medications as prescribed. When you are in need of refills on your medications please contact your medical provider and/or outpatient psychiatrist to have this done. Please go to scheduled outpatient appointment for aftercare treatment. If symptoms return or become worse, call the crisis line at and/or go to the nearest emergency room for evaluation Discharge Disposition: HOME SELF-CARE
[2020-04-01 15:23] VITALS: TEMP 98.4
== END 2020-04-01 13:47 | disposition home or self-care (01) | DRG 897 ==
LOC: EC 10:07 → 3MHU 18:51
PROVIDERS: ADMIT Psychiatry & Neurology Psychiatry; ATTEND Psychiatry & Neurology Psychiatry
DX: F10.24 Alcohol dependence with alcohol-induced mood disorder (principal); R45.851 Suicidal ideations; F10.229 Alcohol dependence with intoxication, unspecified; F10.230 Alcohol dependence with withdrawal, uncomplicated; I10 Essential (primary) hypertension; H53.8 Other visual disturbances; R74.0 Nonspecific elevation of levels of transaminase and lactic acid dehydrogenase [LDH]; R74.8 Abnormal levels of other serum enzymes; Z79.899 Other long term (current) drug therapy; Z86.718 Personal history of other venous thrombosis and embolism; Z87.891 Personal history of nicotine dependence; Z87.820 Personal history of traumatic brain injury; Z88.3 Allergy status to other anti-infective agents; Z81.1 Family history of alcohol abuse and dependence
CPT/HCPCS: 80053; 80061; 80074; 80076; 80306; 81001; 82075; 83036; 84443; 85025; 99285

== ENCOUNTER 2020-06-26 17:42 | Observation (INO) | payer MEDICAID, OTHER ==
[2020-06-26] MEDS ORDERED: SODIUM CHLORIDE 0.9% 1,000 ML IV STA (18:07)
[2020-06-26] MEDS ORDERED: LORazepam 2 MG/ML INJ IV STA (18:08)
[2020-06-26 18:29] LABS: Basophils % (A) 1 %; Eosinophils # (A) 0.1 k/uL (0-0.7); Eosinophils % (A) 1 %; HCT 40.4 % (34.0-46.0); HGB 13.3 gm/dL (11.4-16.0); Lymphocytes # (A) 1.3 k/uL (1.0-4.8); Lymphocytes % (A) 29 %; Mean Platelet Volume 7.1; Monocytes # (A) 0.2 k/uL (0-1.0); Monocytes % (A) 5 %; Neutrophils # (A) 2.6 k/uL (1.3-7.7); Neutrophils % (A) 61 %; Platelet Count 199 k/uL (150-450); RBC 4.04 m/uL (3.80-5.40); RDW 12.3 % (11.5-15.5); WBC 4.3 k/uL (3.8-10.6)
[2020-06-26 18:38] LABS: INR 1.2 (<1.2); Prothrombin Time 12.5 sec (9.0-12.0)
[2020-06-26 18:44] LABS: Magnesium 1.9 mg/dL (1.6-2.3)
[2020-06-26] MEDS ORDERED: SODIUM CHLORIDE 0.9% 1,000 ML with MVI, ADULT NO.4 WITH VIT K 10 ML, THIAMINE 100 MG, F... IV ONE ×4 (18:48)
--- NOTE | 2020-06-26 19:11 | ED ---
Alcohol HPI - General Chief Complaint: Alcohol Stated Complaint: Mental Health Time Seen by Provider: 06/26/20 17:48 Source: EMS, RN notes reviewed, old records reviewed Mode of arrival: EMS Limitations: no limitations - History of Present Illness Initial Comments: 55-year-old female presents today with alcohol intoxication and suicidal statements. Police were contacted by her friend who is with her. She drank a fifth of vodka today. She drinks heavily daily. Patient reports no specific suicidal attempt at this time. Patient is tearful. She has been admitted in the past for suicidal ideations. She reports that she does follow with [facility].Patient was petitioned by police. - Related Data Home Medications Medication Instructions Recorded Confirmed Folic Acid 1 mg PO DAILY 03/26/20 03/26/20 Venlafaxine HCl [Effexor XR] 225 mg PO DAILY 03/26/20 03/26/20 hydroCHLOROthiazide 25 mg PO DAILY 03/26/20 03/26/20 traZODone HCL 200 mg PO HS PRN 03/26/20 03/26/20 Previous Rx's Medication Instructions Recorded Acamprosate Calcium [Campral] 333 mg PO TID #90 tablet. 04/01/20 Atorvastatin [Lipitor] 20 mg PO HS #30 tab 04/01/20 Rivaroxaban [Xarelto] 20 mg PO DAILY tab 04/01/20 Thiamine [Vitamin B-1] 100 mg PO DAILY #30 tab 04/01/20 Allergies Allergy/AdvReac Type Severity Reaction Status Date / Time bacitracin Allergy Rash/Hives Verified 03/26/20 11:02 Review of Systems ROS Statement: Those systems with pertinent positive or pertinent negative responses have been documented in the HPI. ROS Other: All systems not noted in ROS Statement are negative. Past Medical History Past Medical History: Deep Vein Thrombosis (DVT), Hypertension Additional Past Medical History / Comment(s): concussion History of Any Multi-Drug Resistant Organisms: None Reported Additional Past Surgical History / Comment(s): jaw surgery Past Psychological History: Anxiety, Depression Smoking Status: Former smoker Past Alcohol Use History: Abuse Past Drug Use History: None Reported General Exam - General Exam Comments Initial Comments: patient's 55-year-old female. Significantly intoxicated. Limitations: no limitations General appearance: alert, in no apparent distress Head exam: Present: atraumatic Eye exam: Present: normal appearance, PERRL, EOMI. Absent: scleral icterus, conjunctival injection, periorbital swelling ENT exam: Present: normal exam Neck exam: Present: normal inspection. Absent: tenderness, meningismus, lymphadenopathy Respiratory exam: Present: normal lung sounds bilaterally. Absent: respiratory distress, wheezes, rales, rhonchi, stridor Cardiovascular Exam: Present: regular rate, normal rhythm, normal heart sounds. Absent: systolic murmur, diastolic murmur, rubs, gallop, clicks GI/Abdominal exam: Present: soft, normal bowel sounds. Absent: distended, tenderness, guarding, rebound, rigid Extremities exam: Present: normal inspection, full ROM, normal capillary refill. Absent: tenderness, pedal edema, joint swelling, calf tenderness Back exam: Present: normal inspection, full ROM Neurological exam: Present: alert, CN II-XII intact. Absent: oriented X3 Psychiatric exam: Present: depressed (lPatient reports she wants to . Denies any active suicidal plan.). Absent: normal affect, normal mood Skin exam: Present: warm, dry, intact, normal color. Absent: rash Course Vital Signs 06/26/20 06/26/20 17:55 19:03 Temperature 98.1 F Pulse Rate 88 78 Respiratory 16 16 Rate Blood Pressure 155/95 136/76 O2 Sat by Pulse 95 99 Oximetry Procedures - Circle Protocol (Time Out) Nurse: Irina Terrell Medical Decision Making - Medical Decision Making 35-year-old female presents emergency room today with alcohol intoxication and suicidal statements. Patient significant feeling tire skid serum alcohol level is 383. Patient was started on IV fluids and banana bag. Patient will be admitted at this time with suicide precautions and consult to psychiatry. - Lab Data Result diagrams: 06/26/20 18:17 Lab Results 06/26/20 06/26/20 06/26/20 Range/Units 18:17 18:17 18:17 WBC 4.3 (3.8-10.6) k/uL RBC 4.04 (3.80-5.40) m/uL Hgb 13.3 (11.4-16.0) gm/dL Hct 40.4 (34.0-46.0) % MCV 100.0 (80.0-100.0) fL MCH 33.0 (25.0-35.0) pg MCHC 33.0 (31.0-37.0) g/dL RDW 12.3 (11.5-15.5) % Plt Count 199 (150-450) k/uL Neutrophils % 61 % Lymphocytes % 29 % Monocytes % 5 % Eosinophils % 1 % Basophils % 1 % Neutrophils # 2.6 (1.3-7.7) k/uL Lymphocytes # 1.3 (1.0-4.8) k/uL Monocytes # 0.2 (0-1.0) k/uL Eosinophils # 0.1 (0-0.7) k/uL Basophils # 0.0 (0-0.2) k/uL PT 12.5 H (9.0-12.0) sec INR 1.2 H (<1.2) Magnesium 1.9 (1.6-2.3) mg/dL Amylase 48 (30-110) U/L Lipase 230 (23-300) U/L Serum Alcohol 383 H* mg/dL Disposition Clinical Impression: Suicidal ideation, Alcohol use disorder, severe, dependence Disposition: ADMITTED IP TO THIS HOSP Condition: Stable Referrals: Constantine Figueroa DO [Primary Care Provider] - 1-2 days Time of Disposition: 19:30
[2020-06-26] MEDS ORDERED: LORazepam 2 MG/ML INJ IV PRN ×3 (19:17)
[2020-06-26] MEDS ORDERED: THIAMINE 100 MG/ML 2 ML VIAL IM STA (19:17)
[2020-06-26] MEDS ORDERED: ONDANSETRON 4 MG/2 ML VIAL IVP PRN (19:30)
[2020-06-26] MEDS ORDERED: NALOXONE 0.4 MG/ML 1 ML VIAL IV PRN (19:30)
[2020-06-26] MEDS: SODIUM CHLORIDE 0.9% 1,000 ML IV SCH (19:46)
[2020-06-26 20:56] LABS: Amphetamine Screen,Urine Not Detected (NotDetected); Barbiturate Screen,Urine Not Detected (NotDetected); Benzodiazepines Screen,Urine Not Detected (NotDetected); Cocaine Screen,Urine Not Detected (NotDetected); Methadone Screen, Urine Not Detected (NotDetected); Opiate Screen,Urine Not Detected (NotDetected); Oxycodone Screen, Urine Not Detected (NotDetected); Phencyclidine Screen,Urine Not Detected (NotDetected); Tricyclic Antidepressant,Urine Not Detected (NotDetected); Urn Cannabinoid Scrn Not Detected (NotDetected)
[2020-06-26] MEDS ORDERED: traZODone HCL 100 MG TAB PO PRN (22:30)
[2020-06-26] MEDS ORDERED: ALPRAZolam 0.25 MG TAB PO PRN (22:32)
[2020-06-26] MEDS ORDERED: HYDROcodone/APAP 5-325MG 1 EACH TAB PO PRN (22:32)
[2020-06-26] MEDS: ACAMPROSATE CALCIUM 333 MG TABLET.DR PO SCH (23:00)
[2020-06-27 00:09] LABS: ALT 21 U/L (4-34); AST 41 U/L (14-36); African American GFR (CKD) >90 (>60 ml/min/1.73 sqM); Albumin 3.7 g/dL (3.5-5.0); Albumin/Globulin Ratio 1.8; Alkaline Phosphatase 53 U/L (38-126); Anion Gap 9 mmol/L; Blood Urea Nitrogen 10 mg/dL (7-17); Calcium 7.8 mg/dL (8.4-10.2); Carbon Dioxide 24 mmol/L (22-30); Chloride 107 mmol/L (98-107); Globulin 2.1 g/dL; Glucose 78 mg/dL (74-99); Non-African American GFR(CKD) >90 (>60 ml/min/1.73 sqM); Potassium 3.9 mmol/L (3.5-5.1); Sodium 140 mmol/L (137-145); Total Bilirubin 0.5 mg/dL (0.2-1.3); Total Protein 5.8 g/dL (6.3-8.2)
--- NOTE | 2020-06-27 00:45 | HP ---
HISTORY AND PHYSICAL DATE OF SERVICE: 06/26/2020 CHIEF COMPLAINT: Alcohol intoxication as well as suicidal ideation. HISTORY OF PRESENT ILLNESS: This 55-year-old woman with a past medical history of multiple medical problems including DVT, hypertension, history of concussion, history of anxiety, depression, being followed by Dr. Constantine Figueroa in the outpatient setting, was feeling more depressed. Patient was drinking a fifth of alcohol daily. The patient apparently drank a fifth of vodka, whole bottle, and then the patient had suicidal attempt at home and the patient taken to [facility] and was admitted for further evaluation and treatment. Patient's alcohol level was found to be 383. The patient admitted for further evaluation. There is no history of fever or rigors. No history of headache, loss of consciousness, seizures. No history of chest pain, palpitation. PAST MEDICAL HISTORY: DVT, hypertension, concussion, anxiety, depression. MEDICATIONS: 1. Trazodone. 2. Lisinopril. 3. Hydrochlorothiazide. 4. Effexor. 5. Xarelto. 6. Flonase. 7. Lipitor. 8. Campral. Doses are reviewed. ALLERGIES: BACITRACIN. FAMILY HISTORY: No history of heart disease or strokes in the family. SOCIAL HISTORY: Previous history of smoking. Alcohol as mentioned. REVIEW OF SYSTEMS: ENT: No diminished hearing or diminished vision. CARDIOVASCULAR SYSTEM: No angina. RESPIRATORY SYSTEM: No cough or hemoptysis. GI: No nausea, vomiting, diarrhea. : No dysuria. NERVOUS SYSTEM: No numbness or weakness. ALLERGY/IMMUNOLOGY: No asthma or hayfever. MUSCULOSKELETAL: As mentioned earlier. HEMATOLOGY/ONCOLOGY: As mentioned earlier. ENDOCRINE: No history of diabetes or hypothyroidism. CONSTITUTIONAL: As mentioned earlier. DERMATOLOGY: Negative. RHEUMATOLOGY: Negative. PSYCHIATRY: As mentioned earlier. PHYSICAL EXAMINATION: Patient is alert and oriented x3. Pulse is 78, blood pressure 136/76, respirations 16, temperature 97.5, pulse ox 99% on room air. HEENT: Conjunctivae normal. NECK: No jugular venous distention. CARDIOVASCULAR: S1, S2 muffled. RESPIRATORY: Breath sounds diminished at the bases. No rhonchi. No crackles. ABDOMEN: Soft. Nontender. No mass palpable. LEGS: No edema, no swelling. NERVOUS SYSTEM: Higher functions as mentioned. Moves all 4 limbs. No focal motor or sensory deficits. No tremors. SKIN: No ulcer, rash or bleeding. JOINTS: No active deforming arthropathy. LYMPHATICS: No lymphadenopathy of the neck, axillae or groin. LABS: CBC noted. INR 1.2. Lipase 230. Serum alcohol 383. ASSESSMENT: 1. Acute alcohol intoxication. 2. Depression with suicidal ideation. 3. History of deep vein thrombosis. 4. Hypertension. 5. History of concussion. 6. History of anxiety, depression. 7. Remote history of nicotine dependence. 8. FULL CODE. RECOMMENDATIONS AND DISCUSSION: This 55-year-old woman who presented with multiple complex medical issues, we will monitor the patient closely. Continue the current medications, continue symptomatic treatment. CIWA protocol. Resume the home medications. Otherwise psychiatric consultation. Once the patient is stabilized, we will send the patient to psych and home medication will be reconciled. A copy of dictation forwarded to Dr. Constantine Figueroa, who is the primary physician. We will repeat the labs for tomorrow. MMODL / IJN: [id number] /
[2020-06-27] MEDS: SODIUM CHLORIDE 0.9% 1,000 ML IV SCH (05:32)
[2020-06-27 05:43] LABS: Basophils % (A) 1 %; Eosinophils # (A) 0.1 k/uL (0-0.7); Eosinophils % (A) 2 %; HCT 38.2 % (34.0-46.0); HGB 12.7 gm/dL (11.4-16.0); Lymphocytes % (A) 26 %; MCH 33.4 pg (25.0-35.0); MCHC 33.3 g/dL (31.0-37.0); MCV 100.5 fL (80.0-100.0); Mean Platelet Volume 7.2; Monocytes # (A) 0.2 k/uL (0-1.0); Monocytes % (A) 5 %; Neutrophils # (A) 2.4 k/uL (1.3-7.7); Neutrophils % (A) 66 %; Platelet Count 162 k/uL (150-450); RDW 12.2 % (11.5-15.5); WBC 3.7 k/uL (3.8-10.6)
[2020-06-27] MEDS: ACAMPROSATE CALCIUM 333 MG TABLET.DR PO SCH ×3 (07:25→21:23)
[2020-06-27] MEDS: VENLAFAXINE HCL ER 75 MG CAP PO SCH (07:25)
[2020-06-27] MEDS: PANTOPRAZOLE 40 MG TABLET PO SCH (07:26)
[2020-06-27] MEDS: RIVAROXABAN 20 MG TAB PO SCH (07:26)
[2020-06-27] MEDS: THIAMINE 100 MG TAB PO SCH ×2 (07:26→16:52)
[2020-06-27] MEDS ORDERED: FLUTICASONE 50MCG/SPRAY NASAL 16GM EA NOSTRIL PRN (09:00)
[2020-06-27] MEDS ORDERED: lisinopriL 20 MG TAB PO SCH (09:00)
[2020-06-27] MEDS: METOPROLOL TARTRATE 12.5 MG TAB PO SCH ×3 (11:01→21:23)
[2020-06-27] MEDS: diazePAM 2 MG TAB PO SCH ×2 (11:01→19:06)
--- NOTE | 2020-06-27 13:20 | P.CN ---
Psychiatric Consult - . 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 REASON FOR REFERRAL: Psychiatry was consulted for suicidal ideations and alcohol use. HISTORY OF PRESENT ILLNESS: The patient presented to the hospital yesterday for alcohol intoxication and was making suicidal statements and was tearful. According to ER report patient drank a fifth of vodka and was brought in by police as patient's friend contacted them. Patient had a blood alcohol level of 383. Nurse taking care patient states the patient is currently going through alcohol withdrawals and has been receiving Ativan. Patient was seen at the bedside with her sitter at the side. Patient was agreeable to speak to designer writer. Patient had a depressed affect and appeared to be tremulous during exam. Patient states that she's been feeling very depressed leave the unit and states that usually triggers her to binge in drinking alcohol. She states that she usually drinks approximately 12 beers in one sitting or if she drinks vodka approximately half a liter a day. She states that she has been following up at [facility] with Dr. Mancia is her psychiatrist. She states that her last appointment was one half weeks ago. She states that she is taking her antidepressant medications. She states that she has no significant stressors in her life however cannot stop drinking. She claims that she feels shame and guilt over her alcohol use. She states that she has not had delirium tremens in the past however does usually feel "shaky" when she stops drinking. States that her sleep is poor. She claims that she has been having suicidal thoughts and claims that "I just wanted to all end". She claims that he has no specific plan. At this time patient denies any homical ideations, intent or plan. Patient denies any auditory, visual hallucinations and denies any paranoia or delusions. Patients admits to using alcohol as described above. She denies using any cigarettes or any other recreational drug use. PAST PSYCHIATRIC HISTORY: Patient has a a history of depression and anxiety along with alcohol use. Patient claims that she was on Effexor, trazodone and acamprosate. She claims that she has been admitted to the mental health unit in the past however cannot remember when. She states that she follows up at [facility] with Dr. Mancia. Patient denies any history of suicide attempts in the past. PAST MEDICAL HISTORY: History of DVT and hypertension. ALLERGIES: as per EMR. CHEMICAL DEPENDENCY HISTORY: as per HPI. FAMILY PSYCHIATRIC/SUBSTANCE USE HISTORY: denies SOCIAL HISTORY: Patient was born and raised in [facility] and claims that she completed high school. She denied any legal problems. 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 MENTAL STATUS EXAM: General Appearance: Patient appears to be older than stated age is alert, tremulous and attempts to cooperate. Patient appears to have poor hygiene and grooming wearing hospital gown with poor eye contact. Behavior: Patient is calmly lying in bed without any agitated behavior. Appears to be tremulous. Speech: Patient's speech is fluent and nonpressured. Soft tone Mood/Affect: Patient reports their mood is "depressed", affect is congruent Suicidality/Homicidality: Patient denies having any suicidal or homicidal ideation intent or plan. Perceptions: Patient denies any visual hallucinations and denies any auditory hallucinations Though content/process: There is no evidence of any delusional thought content and thought process is linear and goal-directed. Memory and concentration: AOX3, grossly intact for the purposes of this session. Can spell "WORLD" backwards Judgment and insight: poor IMPRESSIONS: Major depressive disorder, recurrent, severe without psychotic features Alcohol use disorder, currently in withdrawal PLAN: -At this time patient DOES meet criteria for inpatient psychiatric admission. -Would recommend the following medication changes/additions: can continue with scheduled Valium taper 4 alcohol withdrawal. Continue with CIWA protocol with when necessary Ativan. continue with trazodone 200 mg when necessary for insomnia/mood. Continue with Effexor XR 225 mgdaily for anxiety/mood. -Continue 1:1 sitter for safety -Cannot leave AMA at this time. Patient will need a petition and certification if attempting to leave AMA. -[employer] spoke with patient about substance abuse and the harmful effects on medical and mental health, patient verbally understood and agreed. -spoke with the patient about medication options for alcohol use disorder and also about rehab versus AA meetings patient states that she would like to think about this. -Patient should be observed and treated for etoh w/d for at least 24 hours and CIWAs significantly improved before patient is eligible for transfer to a psych bed when available. -Communicated plan to patient's nurse -Psychiatry will sign off at this time -Please contact with any questions. 06/27/20 13:17
[2020-06-27 13:38] VITALS: BMI 29.8
[2020-06-27] MEDS ORDERED: ATORVASTATIN 20 MG TAB PO SCH (21:00)
[2020-06-27] MEDS ORDERED: hydroCHLOROthiazide 25 MG TAB PO SCH (21:00)
--- NOTE | 2020-06-27 21:26 | P.PN ---
Progress Note - Text Progress Note Date: 06/27/20 Presenting complaint: Depressed Interval history: This is a patient long-standing alcoholic drinks vodka, presented with alcohol intoxication depressive suicidal ideation. Placed on a CIWA scale. Today-laying in bed. Has a sitter. Tremors present. Had some breakfast. Depressed Review of systems: Was done for constitutional, cardiovascular, GI, pulmonary, psychiatry. relevant finding as above Active Medications Acamprosate (Acamprosate Calcium 333 Mg Tablet.) 666 mg PO TID [facility] Last Admin: 06/27/20 16:52 Dose: 666 mg Documented by: Hydrocodone Bitart/Acetaminophen (Hydrocodone/Apap 5-325mg 1 Each Tab) 1 each PO Q6HR PRN PRN Reason: Pain Last Admin: 06/27/20 04:21 Dose: 1 each Documented by: Atorvastatin Calcium (Atorvastatin 20 Mg Tab) 20 mg PO HS [facility] Diazepam (Diazepam 2 Mg Tab) 2 mg PO Q8H [facility] Last Admin: 06/27/20 19:06 Dose: 2 mg Documented by: Fluticasone Propionate (Fluticasone 50mcg/Arlee Nasal 16gm) 1 spray EA NOSTRIL DAILY PRN PRN Reason: Allergy Symptoms Folic Acid (Folic Acid 1 Mg Tab) 1 mg PO DAILY [facility] Hydrochlorothiazide (Hydrochlorothiazide 25 Mg Tab) 25 mg PO HS [facility] Lorazepam (Lorazepam 2 Mg/Ml Inj) 1 mg IV Q2HR PRN PRN Reason: CIWA 8 or 9 Last Admin: 06/27/20 07:24 Dose: 1 mg Documented by: Lorazepam (Lorazepam 2 Mg/Ml Inj) 1 mg IV Q1HR PRN PRN Reason: CIWA 10 to 15 Lorazepam (Lorazepam 2 Mg/Ml Inj) 2 mg IV Q10M PRN PRN Reason: CIWA 16 or higher Stop: 06/28/20 19:17 Metoprolol Tartrate (Metoprolol Tartrate 12.5 Mg Tab) 12.5 mg PO TID [facility] Last Admin: 06/27/20 16:52 Dose: 12.5 mg Documented by: Multivitamins (Multivitamins, Thera 1 Each Tab) 1 each PO DAILY [facility] Naloxone HCl (Naloxone 0.4 Mg/Ml 1 Ml Vial) 0.2 mg IV Q2M PRN PRN Reason: Opioid Reversal Ondansetron HCl (Ondansetron 4 Mg/2 Ml Vial) 4 mg IVP Q8HR PRN PRN Reason: Nausea And Vomiting Last Admin: 06/27/20 17:44 Dose: 4 mg Documented by: Pantoprazole Sodium (Pantoprazole 40 Mg Tablet) 40 mg PO AC-BRKFST [facility] Last Admin: 06/27/20 07:26 Dose: 40 mg Documented by: Rivaroxaban (Rivaroxaban 20 Mg Tab) 20 mg PO DAILY [facility] Last Admin: 06/27/20 07:26 Dose: 20 mg Documented by: Thiamine HCl (Thiamine 100 Mg Tab) 100 mg PO BID-W/MEALS [facility] Last Admin: 06/27/20 16:52 Dose: 100 mg Documented by: Trazodone HCl (Trazodone Hcl 100 Mg Tab) 200 mg PO HS PRN PRN Reason: Insomnia Venlafaxine HCl (Venlafaxine Hcl Er 75 Mg Cap) 225 mg PO DAILY [facility] Last Admin: 06/27/20 07:25 Dose: 225 mg Documented by: On examination: VITAL SIGNS: [97.9, 84, 18, 133 with 78, 94% room air] GENERAL APPEARANCE: laying in bed, anxious HEENT: Normal external appearance of nose and ear. Oral cavity normal EYES: Pupils equal. Conjunctiva normal. NECK: JVD not raised. Mass not palpable. RESPIRATORY: Respiratory effort normal. Lungs clear to auscultation. CARDIOVASCULAR: First and second sounds normal. No edema. ABDOMEN: Soft. Liver and spleen not palpable. No tenderness. No mass palpable. PSYCHIATRY: Alert and oriented x3. Mood and affect anxious NEUROLOGICAL: Tremors present INVESTIGATIONS, reviewed in the clinical context: white count 3.7 hemoglobin 12.7 potassium 3.9 Admission labs: Serum alcohol 383 assessment: -Acute alcohol intoxication, POA -Major depression with suicidal ideation recurrent -Alcohol withdrawal syndrome -Chronic DVT on Tenoretic -Essential hypertension Plan: Swelling patient this morning. We will add Valium 2 mg every 8 and a small dose of Lopressor to cut back on the sympathetic drive.patient will be watched for another 24 hours. Patient was seen by psychiatry this afternoon. Patient be transferred to the unit when stable from my standpoint. Patient advised strongly against use of alcohol especially in the presence of blood thinners.
[2020-06-28] MEDS: diazePAM 2 MG TAB PO SCH ×2 (03:06→13:00)
[2020-06-28 05:28] LABS: Basophils % (A) 0 %; Eosinophils # (A) 0.1 k/uL (0-0.7); Eosinophils % (A) 2 %; HGB 13.6 gm/dL (11.4-16.0); Lymphocytes # (A) 0.9 k/uL (1.0-4.8); Lymphocytes % (A) 21 %; MCHC 31.7 g/dL (31.0-37.0); MCV 100.8 fL (80.0-100.0); Mean Platelet Volume 7.3; Monocytes # (A) 0.2 k/uL (0-1.0); Monocytes % (A) 5 %; Neutrophils % (A) 71 %; Platelet Count 155 k/uL (150-450); RBC 4.26 m/uL (3.80-5.40); RDW 12.6 % (11.5-15.5); WBC 4.2 k/uL (3.8-10.6)
[2020-06-28] MEDS ORDERED: MULTIVITAMINS, THERA 1 EACH TAB PO SCH (09:00)
[2020-06-28] MEDS ORDERED: FOLIC ACID 1 MG TAB PO SCH (09:00)
[2020-06-28] MEDS: ACAMPROSATE CALCIUM 333 MG TABLET.DR PO SCH (09:12)
[2020-06-28] MEDS: METOPROLOL TARTRATE 12.5 MG TAB PO SCH (09:13)
[2020-06-28] MEDS: PANTOPRAZOLE 40 MG TABLET PO SCH (09:13)
[2020-06-28] MEDS: THIAMINE 100 MG TAB PO SCH (09:13)
[2020-06-28] MEDS: VENLAFAXINE HCL ER 75 MG CAP PO SCH (09:13)
[2020-06-28] MEDS: RIVAROXABAN 20 MG TAB PO SCH (09:13)
[2020-06-28 12:52] VITALS: BP 124/83; PULSE 84; RESP 16; TEMP 98.1
--- NOTE | 2020-06-29 00:12 | P.DS ---
Providers Date of admission: 06/26/20 19:16 Expected date of discharge: 06/28/20 Attending physician: Marco Franco Consults: 06/26/20 19:30 Consult Physician Stat Consulting Provider: Sameer Lal Consult Reason/Comments: suicidal, etoh Do you want consulting provider notified?: Already Contacted Primary care physician: Constantine [facility] Course: Presenting complaint: Depressed Interval history: This is a patient long-standing alcoholic drinks vodka, presented with alcohol intoxication depressive suicidal ideation. Placed on a CIWA scale. Also placed on Valium for alcohol withdrawal syndrome. Today-getting much better. Did talk with some breakfast. Has been up to the bathroom. Has a sitter. Feeling better. Does evaluate cutback. Patient stable to go back to 3 [address]. psychiatry unit. Patient Service Associate: Psychiatry On examination: VITAL SIGNS: 98.1, 84, 16, 124/83, 100% on room air GENERAL APPEARANCE: Sitting up, comfortable EYES: Pupils equal. Conjunctiva normal. NECK: JVD not raised. Mass not palpable. RESPIRATORY: Respiratory effort normal. Lungs clear to auscultation. CARDIOVASCULAR: First and second sounds normal. No edema. ABDOMEN: Soft. Liver and spleen not palpable. No tenderness. No mass palpable. PSYCHIATRY: Alert and oriented x3. Mood and affect-less anxious NEUROLOGICAL: Tremors resolved INVESTIGATIONS, reviewed in the clinical context: White count 4.2 hemoglobin 13.6 Previous testing white count 3.7 hemoglobin 12.7 potassium 3.9 Admission labs: Serum alcohol 383 assessment: -Acute alcohol intoxication, POA -Major depression with suicidal ideation recurrent -Alcohol withdrawal syndrome-improved -Chronic DVT on Tenoretic -Essential hypertension Disposition: Psychiatry unit/3 [address]. at [facility] Patient Condition at Discharge: Stable Plan - Discharge Summary Discharge Rx Participant: No New Discharge Prescriptions: New Folic Acid 1 mg PO DAILY tab Famotidine [Pepcid] 20 mg PO BID #1 tablet diazePAM [Valium] 1 mg PO Q8H tab Continue traZODone HCL 200 mg PO HS PRN PRN Reason: Insomnia Venlafaxine HCl [Effexor XR] 225 mg PO DAILY hydroCHLOROthiazide 25 mg PO HS Atorvastatin [Lipitor] 20 mg PO HS #30 tab Rivaroxaban [Xarelto] 20 mg PO DAILY tab Fluticasone Propionate [Flonase Allergy Relief] 1 spray EA NOSTRIL DAILY PRN PRN Reason: Allergy Symptoms Acamprosate Calcium [Campral] 666 mg PO TID No Action Thiamine [Vitamin B-1] 100 mg PO AC-BID Multivitamins, Thera [Multivitamin (formulary)] 1 tab PO DAILY Discharge Medication List Venlafaxine HCl [Effexor XR] 225 mg PO DAILY 03/26/20 [History] hydroCHLOROthiazide 25 mg PO HS 03/26/20 [History] traZODone HCL 200 mg PO HS PRN 03/26/20 [History] Atorvastatin [Lipitor] 20 mg PO HS #30 tab 04/01/20 [Rx] Rivaroxaban [Xarelto] 20 mg PO DAILY tab 04/01/20 [Rx] Acamprosate Calcium [Campral] 666 mg PO TID 06/26/20 [History] Fluticasone Propionate [Flonase Allergy Relief] 1 spray EA NOSTRIL DAILY PRN 06/26/20 [History] Famotidine [Pepcid] 20 mg PO BID #1 tablet 06/28/20 [Rx] Folic Acid 1 mg PO DAILY tab 06/28/20 [Rx] Multivitamins, Thera [Multivitamin (formulary)] 1 tab PO DAILY 06/28/20 [History] Thiamine [Vitamin B-1] 100 mg PO AC-BID 06/28/20 [History] diazePAM [Valium] 1 mg PO Q8H tab 06/28/20 [Rx] Follow up Appointment(s)/Referral(s): Constantine Figueroa DO [Primary Care Provider] - 1-2 days Patient Instructions/Handouts: Famotidine (By mouth), Abuse of Alcohol (DC) Discharge Disposition: HOME SELF-CARE
--- NOTE | 2020-07-03 10:58 | CDI ---
Date: 07.03.2020 CDS/Counterintelligence Analyst Name: Elizabeth Rodgers Phone: If any questions, call Nafisa Esqueda Community Health Worker at [phone] Patient Name: Brandi Lara Admit Date 06.26.20 Discharge Date: 06.28.20 ATTENTION: The [facility] Coding Staff appreciate your assistance in clarifying documentation. Please respond to the clarification below the line at the bottom and electronically sign. The [facility] Coding staff will review the response and follow-up if needed. Please note: Queries are made part of the Legal Health Record. If you have any questions, please contact the Community Health Worker. Dear In order to code to the greatest specificity and for the greatest reimbursement I need the following information: In your H&P under the HPI you have documented pt had suicidal attempt at home, under assessment you have documented suicidal ideation. Dr. Franco discharge summary he has documented suicidal ideation. Please clarify whether the pt had a suicidal ideation or attempt. Thank you for your kind consideration. suicidal ideation MTDD
== END 2020-06-28 15:40 | disposition home or self-care (01) ==
LOC: EC 17:42 → 6NMEDSUR 19:16
PROVIDERS: ADMIT Hospitalist; ATTEND Hospitalist
DX: F10.229 Alcohol dependence with intoxication, unspecified (principal); F10.239 Alcohol dependence with withdrawal, unspecified; F33.9 Major depressive disorder, recurrent, unspecified; R45.851 Suicidal ideations; I82.509 Chronic embolism and thrombosis of unspecified deep veins of unspecified lower extremity; I10 Essential (primary) hypertension; F41.9 Anxiety disorder, unspecified; Y90.8 Blood alcohol level of 240 mg/100 ml or more; Z79.899 Other long term (current) drug therapy; Z88.1 Allergy status to other antibiotic agents; Z87.820 Personal history of traumatic brain injury; Z87.891 Personal history of nicotine dependence; Z98.890 Other specified postprocedural states
CPT/HCPCS: 96376; 96361 ×2; 96375; 82075; 96372; 96374; 99285; 36415; 80053; 82150; 83690; 83735; 85025 ×3; 85610; 80306; G0378 ×3; G0480; J2060 ×2; J3411; J2405; 80320

== ENCOUNTER 2020-06-28 14:17 | Inpatient (IN) | payer MEDICAID ==
[2020-06-28] MEDS ORDERED: MAG HYDROX/AL HYDROX/SIMETH 30 ML CUP PO PRN (15:13)
[2020-06-28] MEDS ORDERED: ZIPRASIDONE 20 MG VIAL IM PRN (15:13)
[2020-06-28] MEDS ORDERED: MAGNESIUM HYDROXIDE 2,400 MG/10 ML CUP PO PRN (15:13)
[2020-06-28] MEDS ORDERED: ACETAMINOPHEN TAB 325 MG TAB PO PRN (15:13)
[2020-06-28] MEDS ORDERED: FLUTICASONE 50MCG/SPRAY NASAL 16GM EA NOSTRIL PRN (15:18)
[2020-06-28] MEDS ORDERED: traZODone HCL 100 MG TAB PO PRN (15:18)
[2020-06-28] MEDS: ACAMPROSATE CALCIUM 333 MG TABLET.DR PO SCH ×2 (16:41→20:38)
[2020-06-28] MEDS: THIAMINE 100 MG TAB PO SCH (16:46)
[2020-06-28] MEDS: FAMOTIDINE 20 MG TAB PO SCH (20:36)
[2020-06-28] MEDS: ATORVASTATIN 20 MG TAB PO SCH (20:36)
[2020-06-28] MEDS: hydroCHLOROthiazide 25 MG TAB PO SCH (20:36)
[2020-06-28] MEDS: diazePAM 2 MG TAB PO SCH (20:37)
[2020-06-29 07:43] LABS: Cholesterol 246 mg/dL (<200); Triglycerides 82 mg/dL (<150)
[2020-06-29 07:50] LABS: LDL Cholesterol,Calculated 45 mg/dL (0-99)
[2020-06-29 08:11] LABS: HDL Cholesterol 185 mg/dL (40-60)
[2020-06-29] MEDS: diazePAM 2 MG TAB PO SCH (08:53)
[2020-06-29] MEDS: THIAMINE 100 MG TAB PO SCH ×2 (08:55→16:50)
[2020-06-29] MEDS: FOLIC ACID 1 MG TAB PO SCH (08:55)
[2020-06-29] MEDS: ACAMPROSATE CALCIUM 333 MG TABLET.DR PO SCH ×3 (08:55→20:53)
[2020-06-29] MEDS: MULTIVITAMINS, THERA 1 EACH TAB PO SCH (08:55)
[2020-06-29] MEDS: VENLAFAXINE HCL ER 75 MG CAP PO SCH (08:55)
[2020-06-29] MEDS: RIVAROXABAN 20 MG TAB PO SCH (08:55)
[2020-06-29] MEDS: FAMOTIDINE 20 MG TAB PO SCH ×2 (08:55→20:55)
[2020-06-29] MEDS: LORazepam 1 MG TAB PO PRN (12:47)
[2020-06-29] MEDS: OLANZapine 5 MG TAB PO SCH ×2 (17:43→20:53)
--- NOTE | 2020-06-29 20:21 | P.CONS ---
History of Present Illness - Reason for Consult Consult date: 06/29/20 Medical management Requesting physician: Sameer Lal - Chief Complaint Depressed - History of Present Illness Consultation: This is a [address] Marleen Figueroa. Initially admitted to the medical service on June 26. This is a patient long-standing alcoholic drinks vodka, presented with alcohol intoxication depressive suicidal ideation. Had alcohol withdrawal syndrome. Treated with Valium, beta blockers. Had a sitter. Was initially admitted to the medical service then discharged to the psychiatry floor yesterday. Today-getting much better. Doing better. Ambulating. Oral intake improving. Less depressed. No tremors. Review of systems: GEN.: None EYES: None HEENT: None NECK: None RESPIRATORY: None CARDIOVASCULAR: None GASTROINTESTINAL: None GENITOURINARY: None MUSCULOSKELETAL: None LYMPHATICS: None HEMATOLOGICAL: None PSYCHIATRY: Depressed NEUROLOGICAL: None Past medical history to include: Major depression, chronic DVT, essential hypertension, hyperlipidemia Social history: Patient is drinking at least a fifth a walker, for over a year. Also beer. 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 EYES: Pupils equal. Conjunctiva normal. HEENT: External appearance of nose and ears normal, oral cavity grossly normal. NECK: JVD not raised; masses not palpable. HEART: First and second heart sounds are normal; no edema. LUNGS: Respiratory rate normal; clear to auscultation. ABDOMEN: Soft, nontender, liver spleen not palpable, no masses palpable. PSYCH: [Alert and oriented x3; mood and affect a bit low l. NEUROLOGICAL: Cranial nerves grossly intact; no facial asymmetry, power and sensation grossly intact. LYMPHATICS: No lymph nodes palpable in the axilla and neck INVESTIGATIONS, reviewed in the clinical context: White count 4.2 hemoglobin 13.6 potassium 3.9 creatinine 0.5 for assessment: -Major depression with suicidal ideation recurrent -Alcohol use disorder -Chronic DVT on xarelto -Essential hypertension Plan: Patient's home medications were continued. Advised against alcohol. Appetite is improving. Continue with xarelto. Patient to follow-up with his family doctor for discharge. Thank you Dr. Lal Past Medical History Past Medical History: Deep Vein Thrombosis (DVT), Hypertension Additional Past Medical History / Comment(s): concussion History of Any Multi-Drug Resistant Organisms: None Reported Additional Past Surgical History / Comment(s): jaw surgery Past Psychological History: Anxiety, Depression Smoking Status: Former smoker Past Alcohol Use History: Abuse Additional Past Alcohol Use History / Comment(s): states she drink a fifth of vodka daily for over a year. Past Drug Use History: None Reported Medications and Allergies Home Medications Medication Instructions Recorded Confirmed Type Venlafaxine HCl [Effexor XR] 225 mg PO DAILY 03/26/20 06/28/20 History hydroCHLOROthiazide 25 mg PO HS 03/26/20 06/28/20 History traZODone HCL 200 mg PO HS PRN 03/26/20 06/28/20 History Atorvastatin [Lipitor] 20 mg PO HS #30 tab 04/01/20 06/28/20 Rx Rivaroxaban [Xarelto] 20 mg PO DAILY tab 04/01/20 06/28/20 Rx Acamprosate Calcium [Campral] 666 mg PO TID 06/26/20 06/28/20 History Fluticasone Propionate [Flonase 1 spray EA NOSTRIL DAILY PRN 06/26/20 06/28/20 History Allergy Relief] Famotidine [Pepcid] 20 mg PO BID #1 tablet 06/28/20 06/28/20 Rx Folic Acid 1 mg PO DAILY tab 06/28/20 06/28/20 Rx Multivitamins, Thera [Multivitamin 1 tab PO DAILY 06/28/20 06/28/20 History (formulary)] Thiamine [Vitamin B-1] 100 mg PO AC-BID 06/28/20 06/28/20 History diazePAM [Valium] 1 mg PO Q8H tab 06/28/20 06/28/20 Rx Allergies Allergy/AdvReac Type Severity Reaction Status Date / Time bacitracin Allergy Rash/Hives Verified 06/28/20 14:46 Physical Exam Vitals: Vital Signs Temp Pulse Resp BP Pulse Ox 06/29/20 08:51 124 H 100/62 06/29/20 06:57 97.6 F 87 16 102/65 06/28/20 20:40 104 H 116/68 06/28/20 16:42 98.9 F 92 18 117/75 97 Intake and Output 06/28/20 06/29/20 06/29/20 22:59 06:59 14:59 Other: Weight 87.8 kg Results Labs: Abnormal Lab Results - Last 24 Hours (Table) 06/29/20 Range/Units 07:02 Cholesterol 246 H (<200) mg/dL HDL Cholesterol 185 H (40-60) mg/dL
[2020-06-29] MEDS: ATORVASTATIN 20 MG TAB PO SCH (20:53)
[2020-06-29] MEDS: hydroCHLOROthiazide 25 MG TAB PO SCH (20:53)
[2020-06-29] MEDS: traZODone HCL 100 MG TAB PO PRN (20:55)
--- NOTE | 2020-06-30 00:08 | HP ---
DATE OF SERVICE: 06/29/2020 HISTORY AND PHYSICAL IDENTIFYING DATA: The patient is a 55-year-old female she resides in her own apartment living independently. She was referred through the ED for evaluation. CHIEF COMPLAINT: The patient had relapsed to drinking which has been a long-term problem for her. HISTORY OF PRESENTING ILLNESS: The patient had a recent admission to the psychiatric unit. I refer the reader to Dr. Claudio's notes of 03/27 to 04/01/2020 for details. At that time she was having increasing problems with depression. She was drinking about a 5th of alcohol per day. She had depression and suicide thoughts. The patient states that after discharge she remained sober for about 1 month and then relapsed back into drinking. She says she has been drinking about a 5th a day since relapse. She notes that she has a long history of substance use issues, namely alcohol. She has had long-term treatment interventions. 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 After that, she left the program and did relapse into drinking. She had a 20 month inpatient rehab program in 2016 in [place]. She has had some periods of sobriety mostly during these extended treatment programs, though she says typically she relapses to drinking. She notes that when she gets into an anxious or distressed state she tends to turn the alcohol to deal with emotional distress. She has been followed by [facility], [facility]. She was recently seen Dr. Harrison about 3 weeks ago. Current psychotropic medications include Effexor XR 225 mg a day and Campral 666 mg 3 times a day. She said during her last hospitalization, she was on naltrexone, which she did not feel was very helpful in reducing some of her urges. She does feel she has done a little bit better with Campral. She was initially admitted to the medical floor for detox and then transferred to the psychiatric unit. It is noted that her blood alcohol level on admission was 383. She is admitted for further evaluation. SUBSTANCE USE HISTORY: As above. PAST MEDICAL HISTORY: Please refer to Dr. Franco's admission note for details. He indicates diagnoses of DVT, hypertension, concussion, anxiety and depression. FAMILY AND SOCIAL HISTORY: Please refer to Dr. Claudio admission note of 03/27/2020 for details. There is no interval change. MENTAL STATUS EXAM: Patient sat with a little restlessness. She gave fairly good eye contact. She answered questions appropriately. Her thoughts were clear, coherent, and goal directed. She was spontaneous and interactive. Her affect was somewhat constricted. Her mood depressed. She was moderately distressed. There was no indication of thought disorder. She denied thoughts of harm to self or others. On cognitive exam, she was oriented x3 and alert. Recent remote memory was intact. Attention and concentration fair. Insight fair. Judgment poor. Fund of knowledge average. PHYSICAL EXAM: As per medical records of Dr. Franco. ASSESSMENT: This 55-year-old female is diagnosed with alcohol dependence and acute alcohol withdrawal. She has depression issues. She has major struggles with relapsing to alcohol even in spite of long-term treatment programs. It is unclear what factors are in place that have made it so difficult for her to stabilize herself away from drinking. This is in spite of the fact that she maintains employment and apparently has at least family support. STRENGTHS: Include her work history. WEAKNESSES: Includes relapsed to drinking. DIAGNOSES: 1. Alcohol dependence and acute alcohol withdrawal. 2. Major depression, chronic and recurrent with acute exacerbation. 3. Chronic deep vein thrombosis. 4. Central hypertension. 5. Hyperlipidemia. RECOMMENDATIONS: Patient will be admitted for comprehensive medical psychiatric and psychosocial evaluation. We will engage the patient in individual and group therapeutic activities. I had an extensive discussion with the patient regarding withdrawal and alcohol dependence issues. At this point, I will start the patient on Zyprexa 5 mg 3 times a day. The aim of Zyprexa is to help reduce physiologic stress response relating to acute alcohol withdrawal. I will continue the patient on Effexor XR 225 mg a day. I had noted to the patient that antidepressants are likely to have minimal benefits until she is at least 6 weeks clear from any alcohol use. I reviewed the indication for Zyprexa. I discussed side effects including potential for metabolic concerns of movement disorder issues. We discussed potential interventions to help her move away from the drinking problems she struggles with. We will focus on stabilization and discharge planning. ADRIANA / NALINI: [id number] / MTDD
[2020-06-30] MEDS: RIVAROXABAN 20 MG TAB PO SCH (08:40)
[2020-06-30] MEDS: FAMOTIDINE 20 MG TAB PO SCH ×2 (08:40→21:53)
[2020-06-30] MEDS: ACAMPROSATE CALCIUM 333 MG TABLET.DR PO SCH ×3 (08:40→21:54)
[2020-06-30] MEDS: MULTIVITAMINS, THERA 1 EACH TAB PO SCH (08:40)
[2020-06-30] MEDS: THIAMINE 100 MG TAB PO SCH ×2 (08:40→16:39)
[2020-06-30] MEDS: VENLAFAXINE HCL ER 75 MG CAP PO SCH (08:40)
[2020-06-30] MEDS: FOLIC ACID 1 MG TAB PO SCH (08:40)
[2020-06-30] MEDS: OLANZapine 5 MG TAB PO SCH ×3 (08:41→21:56)
[2020-06-30] MEDS: hydroCHLOROthiazide 25 MG TAB PO SCH (21:53)
[2020-06-30] MEDS: ATORVASTATIN 20 MG TAB PO SCH (21:53)
[2020-06-30] MEDS: SODIUM CHLORIDE 0.65% NASAL SPRAY 44 ML BTL NASAL PRN (22:36)
--- NOTE | 2020-07-01 00:27 | PN ---
PROGRESS NOTE DATE OF SERVICE: 06/30/2020 CHIEF COMPLAINT: The patient had relapse to drinking which has been a long-term problem for her. INTERVAL HISTORY: The patient has been doing fair. She had a quiet day yesterday. She comes out in the day area. She will interact with others. She has been appropriate in her interactions with staff and peers. She attended groups yesterday. She is fairly verbal in groups. She had two CIWA scores in the middle of the day at 8, otherwise her scores were minimal. She slept fairly well last night. Today she has been up. She has spent a fair amount of time in her room, though does come out periodically. She will engage staff. She had some difficulties this morning around 7 a.m. when her blood pressure were low. At 0500, her blood pressure was 123/57; at 0715, her pressure was 96/55 and at 0745, her pressure was 65/53. She also ran high pulses of 120 and 130 with the last two pressures. Her last vital signs today at 1630 included a BP of 100/68 and pulse of 104. Her morning dose of Zyprexa was held. She did receive two doses of Zyprexa yesterday with the last one being at 2100 hours. It is noted when her pressures were low she had gotten up from her bed and walked down to the nursing station. She said she felt a little dizzy. The symptoms cleared and she has not had difficulty since then. Generally, her mood has been fairly good. She has talked about issues in managing her life situation and how she can work towards a more stable situation without alcohol. She tolerates her psychotropic medications. MENTAL STATUS: Patient sat without restlessness. She had fairly good eye contact. She answered questions appropriately. Her thoughts were clear, coherent, and goal directed. Her affect was somewhat constricted. Her mood reserved. She was moderately distressed. There was no indication of thought disorder. She voiced no thoughts of harm. Cognition was clear. ASSESSMENT: I will continue the current diagnosis and treatment plan. I will continue psychotropic medications the same. We will need to monitor for blood pressure issues. It is doubtful that the drop in blood pressure related to her Zyprexa dosing, but rather it may have been more related to orthostatics secondary to early substance withdrawal issues and some instability in her cardiovascular system. We will focus on stabilization and discharge planning. MMODL / IJN: [id number] /
[2020-07-01] MEDS: ACAMPROSATE CALCIUM 333 MG TABLET.DR PO SCH ×3 (08:31→21:05)
[2020-07-01] MEDS: THIAMINE 100 MG TAB PO SCH ×2 (08:31→16:37)
[2020-07-01] MEDS: MULTIVITAMINS, THERA 1 EACH TAB PO SCH (08:32)
[2020-07-01] MEDS: OLANZapine 5 MG TAB PO SCH ×2 (08:32→21:05)
[2020-07-01] MEDS: FOLIC ACID 1 MG TAB PO SCH (08:32)
[2020-07-01] MEDS: FAMOTIDINE 20 MG TAB PO SCH ×2 (08:32→21:05)
[2020-07-01] MEDS: VENLAFAXINE HCL ER 75 MG CAP PO SCH (08:32)
[2020-07-01] MEDS: RIVAROXABAN 20 MG TAB PO SCH (08:32)
[2020-07-01] MEDS: SODIUM CHLORIDE 0.65% NASAL SPRAY 44 ML BTL NASAL PRN (08:54)
[2020-07-01 09:07] VITALS: RESP 20
--- NOTE | 2020-07-01 11:10 | P.PN ---
Progress Note - Text Progress Note Date: 07/01/20 Interval History: Patient was seen sitting in the lounge speaking with other patients well watch ing TV and was directable and agreeable to speak with play writer in the office. He should appear to have improvement in her hygiene and grooming today. She spoke about her mood and anxiety gradually getting better on the unit. She claims that majority of her symptoms were related to her alcohol use. She claims that she is struggling to quit alcohol however states that "I'm working on a plan to stay away from it and stay away from friends that drink". She states that she has been pushing away her friends who do not drink and wants to get closer to them. She states that she does follow up with [facility], [place] on a regular basis. She states that she is taking her medications which have been helping her with her anxiety and mood. Patient was agreeable to have her Zyprexa dose decreased due to possible blood pressure issues. She states that she was able to sleep approximately 6 hours last night. At this time patient denies any suicidal or homical ideations, intent or plan. Patient denies any auditory, visual hallucinations and denies any paranoia or delusions. Patient denies any side effects from the medications and has been compliant with meds. Mental Status Exam: General Appearance: Patient appears to be tall, thin stated age is alert, directable, and superficially cooperative. Improvement in hygiene and grooming. Behavior: Patient is calmly seated without any agitated behavior. Speech: Patient's speech is fluent and nonpressured. Mood/Affect: Mood is improving mildly, affect is congruent and constricted. Suicidality/Homicidality: Patient denies having any suicidal or homicidal ideation intent or plan. Perceptions: Patient denies any visual hallucinations and denies any auditory hallucinations Though content/process: There is no evidence of any delusional thought content and thought process is linear and goal-directed. [place]. Minimizing her drinking. Memory and concentration: AOX3, grossly intact for the purposes of this session Judgment and insight: Poor, Improving mildly Assessment Major depressive disorder, recurrent, severe without psychotic features Alcohol use disorder Plan: -Patient continues to meet criteria for inpatient psychiatric admission for symptom stabilization and safety. Patient has signed adult voluntary form and medication consent and was placed in patient's chart. -Medications: Decrease Zyprexa to 5 mg twice a day for mood stabilization/insomnia. Continue trazodone 100 mg daily at bedtime when necessary for insomnia/mood. Continue with Effexor 225 mg daily for mood/anxiety. Continue with Campral 666 mg 3 times a day for alcohol cravings. -Thiamine, folic acid and multivitamin for chronic alcohol use. -When necessary Ativan and Geodon for agitation/aggression. -NRT - not needed as patient does not smoke. -SW on board for discharge planning. Encouraged the patient to participate in milieu. We'll continue to monitor withdrawal symptoms. Business Relations Manager discussed rehab and other treatment options for patient's alcohol use however patient elected to not go to rehab at this time. Discharge 1-2 days.
[2020-07-01 13:56] VITALS: BP 116/68; PULSE 95; TEMP 97.7
[2020-07-01] MEDS: LORazepam 1 MG TAB PO PRN (16:47)
[2020-07-01] MEDS: hydroCHLOROthiazide 25 MG TAB PO SCH (21:05)
[2020-07-01] MEDS: traZODone HCL 100 MG TAB PO PRN (21:05)
[2020-07-01] MEDS: ATORVASTATIN 20 MG TAB PO SCH (21:06)
[2020-07-02] MEDS: ACAMPROSATE CALCIUM 333 MG TABLET.DR PO SCH (08:44)
[2020-07-02] MEDS: THIAMINE 100 MG TAB PO SCH (08:44)
[2020-07-02] MEDS: OLANZapine 5 MG TAB PO SCH (08:44)
[2020-07-02] MEDS: FAMOTIDINE 20 MG TAB PO SCH (08:44)
[2020-07-02] MEDS: RIVAROXABAN 20 MG TAB PO SCH (08:44)
[2020-07-02] MEDS: MULTIVITAMINS, THERA 1 EACH TAB PO SCH (08:45)
[2020-07-02] MEDS: VENLAFAXINE HCL ER 75 MG CAP PO SCH (08:45)
[2020-07-02] MEDS: FOLIC ACID 1 MG TAB PO SCH (08:45)
--- NOTE | 2020-07-02 09:34 | P.DS ---
Providers Date of admission: 06/28/20 14:28 Expected date of discharge: 07/02/20 Attending physician: Sameer Lal MD Consults: 06/28/20 15:13 Consult Physician Routine Consulting Provider: Marco Franco Consult Reason/Comments: medical management Do you want consulting provider notified?: Yes Primary care physician: Constantine Figueroa - Discharge Diagnosis(es) (1) Major depressive disorder without psychotic features Current Visit: Yes Status: Acute Priority: High (2) Alcohol use disorder Current Visit: Yes Status: Acute Priority: Medium Hospital Course: Admission HPI: Admission note as summarized as following. Patient is a 55-year-old female who resides in her own apartment living independently and has a long history of alcohol use and depression. Patient had recently relapsed drinking alcohol. Patient was initially seen on the medical floors as she was admitted going through alcohol withdrawal. Patient was seen for psychiatric consultation by technical proposal writer. At that time patient claims that she had increased problems with her depression and also drinking approximately a fifth of alcohol per day and also was endorsing suicidal thoughts. 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 Patient is banned several months in recovery programs and facilities for her alcohol use however has continued to be relapsing on alcohol. Patient is currently being followed at [facility] by Dr. Mancia. Hospital course: Upon admission to the unit patient was initially depressed and anxious going through alcohol withdrawal. Patient was however directable and agreeable to commence treatment and signed for voluntary admission. Patient got along well with other patients on the unit and followed unit protocol. Patient was compliant with the medications and denied any side effects throughout hospital course. Patient was started on Zyprexa and decreased down to a dose of 5 mg twice a day for mood stabilization/insomnia. Patient was also restarted on trazodone however decreased down to a dose of 100 mg nightly when necessary for insomnia/mood. Patient was also started on the her home dose of Effexor 225 mg daily for mood/anxiety. Patient was also started on acamprosate her home dose of 666 mg 3 times a day for alcohol cravings. Patient spoke of her stressors and engaged in therapy both group and individual. Patient was also seen by medical team for history and physical exam. Patient was placed on CIWA protocol with Ativan when necessary for alcohol withdrawal. Throughout the course of the hospitalization patient gradually improved with regards to mood, anxiety, sleep and became future oriented with improved insight and judgment. On the day of discharge patient denied any suicidal or homicidal ideations intent or plan denied any auditory or visual hallucinations. Patient endorsed wanting to live for her future and her family. The patient denied any access to guns or weapons. Patient denied any paranoia and did not endorse any delusions. Patient does have a significant history of substance abuse and was counseled on abstaining from all substances including alcohol and marijuana. Patient was offered however declined inpatient substance-abuse rehab. Patient elected to do outpatient substance use treatment program through [facility] and also do AA meetings in the community. Patient was also counseled on the medications and need for regular compliance and was encouraged to follow-up with their outpatient appointment for mental health and also for primary care. Mental status exam: General Appearance: Patient appears to be tall, stated age is alert, pleasant, and cooperative. Patient is in no acute distress and has improved hygiene and grooming Behavior: Patient is calmly seated without any agitated behavior. Speech: Patient's speech is fluent and nonpressured. Mood/Affect: Patient reports their mood is "good", affect is congruent and euthymic. Suicidality/Homicidality: Patient denies having any suicidal or homicidal ideation intent or plan. Perceptions: Patient denies any auditory or visual hallucinations. Though content/process: There is no evidence of any delusional thought content and thought process is linear and goal-directed. more future oriented Memory and concentration: AOX3, grossly intact for the purposes of this session. Can spell "WORLD" backwards correctly. Judgment and insight: improved with guarded prognosis Impression: Major depressive disorder, severe without psychotic features Alcohol use disorder Plan: -Continue with discharge today as patient has improved and stabilized psychiatrically and is not currently an imminent threat to herself and/or others. Patient will remain at chronically elevated risk for harm to self and/or others due to her impulsivity and alcohol abuse. -Continue medications: Continue with Zyprexa 5 mg twice a day for mood stabilization/insomnia, trazodone 100 mg daily at bedtime when necessary for insomnia/mood, Effexor 225 mg daily for mood/anxiety, acamprosate 666 mg 3 times a day for alcohol cravings. -Patient was counseled on the need for medication compliance and appropriate follow-up at mental health and also primary care for medical issues. Patient verbalized understanding and agreed. -Social work to assist with disposition and also to arrange for patients follow up appointments with [facility] for psychiatric care along with follow up with primary care provider. -Patient counseled on abstaining from recreational drugs and marijuana and alcohol. Was informed/educated on the adverse effects on their physical and mental health. Patient verbally agreed and understood. Patient was offered substance abuse treatment however declined at this time. Patient elected to do outpatient substance use treatment program through [facility] and also do AA meetings in the community -Patient was instructed to return to the hospital or seek immediate medical care if their psychiatric or medical symptoms do worsen or reoccur. Allergies Allergy/AdvReac Type Severity Reaction Status Date / Time bacitracin Allergy Rash/Hives Verified 06/28/20 14:[address] Glu mg/dL 97 06/29/20 07:02 Hemoglobin A1c 5.0 % (4.0-6.0) 06/29/20 07:02 Triglycerides 82 mg/dL (<150) 06/29/20 07:02 Cholesterol 246 mg/dL (<200) H 06/29/20 07:02 LDL Cholesterol, Calc 45 mg/dL (0-99) 06/29/20 07:02 HDL Cholesterol 185 mg/dL (40-60) H 06/29/20 07:02 Vital Signs Temp 97.7 F 07/01/20 12:30 Pulse 95 07/01/20 12:30 Resp 20 07/01/20 12:30 BP 116/68 07/01/20 12:30 Pulse Ox 100 07/01/20 12:30 Patient Condition at Discharge: Stable Plan - Discharge Summary New Discharge Prescriptions: New Sodium Chloride 0.65% Nasal [Deep Sea (Saline)] 2 spray NASAL QID PRN spray PRN Reason: Dry Nasal Passages traZODone HCL [Desyrel] 100 mg PO HS PRN 30 Days tab PRN Reason: Insomnia Venlafaxine HCl ER [Effexor XR] 225 mg PO DAILY 30 Days cap.er.24h Folic Acid 1 mg PO DAILY 30 Days tab Thiamine [Vitamin B-1] 100 mg PO AC-BID 30 Days tab Rivaroxaban [Xarelto] 20 mg PO DAILY tab OLANZapine [ZyPREXA] 5 mg PO BID 30 Days tab Continue hydroCHLOROthiazide 25 mg PO HS Atorvastatin [Lipitor] 20 mg PO HS #30 tab Fluticasone Propionate [Flonase Allergy Relief] 1 spray EA NOSTRIL DAILY PRN PRN Reason: Allergy Symptoms Famotidine [Pepcid] 20 mg PO BID #1 tablet Acamprosate Calcium [Campral] 666 mg PO TID 30 Days tab Changed Multivitamins, Thera [Multivitamin (formulary)] 1 tab PO DAILY 30 Days tab Discontinued traZODone HCL 200 mg PO HS PRN PRN Reason: Insomnia Venlafaxine HCl [Effexor XR] 225 mg PO DAILY Rivaroxaban [Xarelto] 20 mg PO DAILY tab Folic Acid 1 mg PO DAILY tab diazePAM [Valium] 1 mg PO Q8H tab Thiamine [Vitamin B-1] 100 mg PO AC-BID Discharge Medication List hydroCHLOROthiazide 25 mg PO HS 03/26/20 [History] Atorvastatin [Lipitor] 20 mg PO HS #30 tab 04/01/20 [Rx] Fluticasone Propionate [Flonase Allergy Relief] 1 spray EA NOSTRIL DAILY PRN 06/26/20 [History] Famotidine [Pepcid] 20 mg PO BID #1 tablet 06/28/20 [Rx] Acamprosate Calcium [Campral] 666 mg PO TID 30 Days tab 07/02/20 [Rx] Folic Acid 1 mg PO DAILY 30 Days tab 07/02/20 [Rx] Multivitamins, Thera [Multivitamin (formulary)] 1 tab PO DAILY 30 Days tab 07/02/20 [Rx] OLANZapine [ZyPREXA] 5 mg PO BID 30 Days tab 07/02/20 [Rx] Rivaroxaban [Xarelto] 20 mg PO DAILY tab 07/02/20 [Rx] Sodium Chloride 0.65% Nasal [Deep Sea (Saline)] 2 spray NASAL QID PRN spray 07/02/20 [Rx] Thiamine [Vitamin B-1] 100 mg PO AC-BID 30 Days tab 07/02/20 [Rx] Venlafaxine HCl ER [Effexor XR] 225 mg PO DAILY 30 Days cap.er.24h 07/02/20 [Rx] traZODone HCL [Desyrel] 100 mg PO HS PRN 30 Days tab 07/02/20 [Rx] Activity/Diet/Wound Care/Special Instructions: Activity and diet as tolerated. Avoid the use of street drugs and alcohol. Take all medications as prescribed. When you are in need of refills on your medications please contact your medical provider and/or outpatient psychiatrist to have this done. Please go to scheduled outpatient appointment for aftercare treatment. If symptoms return or become worse, call the crisis line at and/or go to the nearest emergency room for evaluation. Discharge Disposition: HOME SELF-CARE
== END 2020-07-02 12:20 | disposition home or self-care (01) | DRG 885 ==
LOC: 3MHU 14:28
PROVIDERS: ADMIT Psychiatry & Neurology Psychiatry; ATTEND Psychiatry & Neurology Psychiatry
DX: F33.2 Major depressive disorder, recurrent severe without psychotic features (principal); F10.239 Alcohol dependence with withdrawal, unspecified; R45.851 Suicidal ideations; I82.509 Chronic embolism and thrombosis of unspecified deep veins of unspecified lower extremity; E78.5 Hyperlipidemia, unspecified; F41.9 Anxiety disorder, unspecified; G47.00 Insomnia, unspecified; I10 Essential (primary) hypertension; Z79.01 Long term (current) use of anticoagulants; Z79.899 Other long term (current) drug therapy; Z87.891 Personal history of nicotine dependence; Z71.41 Alcohol abuse counseling and surveillance of alcoholic; Z88.2 Allergy status to sulfonamides
CPT/HCPCS: 80061; 83036

== ENCOUNTER 2020-09-27 16:46 | Emergency (ER) | payer MEDICAID, OTHER ==
--- NOTE | 2020-09-27 17:39 | XR ---
Result: History: Pain. Comparison: None available. Technique: 3 views of the right ankle. Findings: There is soft tissue edema overlying the lateral malleolus. No acute fracture or dislocation is seen. The visualized osseous structures are in anatomic alignment. The talar dome is intact and the ankl e mortise is congruent. There are scattered mild degenerative changes and calcaneal enthesopathy. Impression: Soft tissue edema overlying the lateral malleolus without acute fracture.
--- NOTE | 2020-09-27 18:04 | ED ---
Lower Extremity Injury HPI - General Chief Complaint: Extremity Injury, Lower Stated Complaint: [facility] - R Ankle Injury Time Seen by Provider: 09/27/20 17:06 Source: patient Mode of arrival: ambulatory Limitations: no limitations - History of Present Illness Initial Comments: Patient is a 55-year-old female presenting to the emergency Department with complaints of pain in her right ankle since yesterday. Patient states she was at work and accidentally kicked a steel table, hitting at the outside of her right ankle. Patient states she had a hard time walking afterwards. Patient states today she woke up and noticed more swelling and bruising so she got concerned and went to [facility], who sent her in the ER for x-rays. Patient denies any other injuries to the right ankle. She is on Lovenox for DVT of the left lower leg. She has no further complaints at this time. - Related Data Home Medications Medication Instructions Recorded Confirmed hydroCHLOROthiazide 25 mg PO HS 03/26/20 06/28/20 Fluticasone Propionate [Flonase 1 spray EA NOSTRIL DAILY PRN 06/26/20 06/28/20 Allergy Relief] Previous Rx's Medication Instructions Recorded Atorvastatin [Lipitor] 20 mg PO HS #30 tab 04/01/20 Famotidine [Pepcid] 20 mg PO BID #1 tablet 06/28/20 Acamprosate Calcium [Campral] 666 mg PO TID 30 Days tab 07/02/20 Folic Acid 1 mg PO DAILY 30 Days tab 07/02/20 Multivitamins, Thera [Multivitamin 1 tab PO DAILY 30 Days tab 07/02/20 (formulary)] OLANZapine [ZyPREXA] 5 mg PO BID 30 Days tab 07/02/20 Rivaroxaban [Xarelto] 20 mg PO DAILY tab 07/02/20 Sodium Chloride 0.65% Nasal [Deep 2 spray NASAL QID PRN spray 07/02/20 Sea (Saline)] Thiamine [Vitamin B-1] 100 mg PO AC-BID 30 Days tab 07/02/20 Venlafaxine HCl ER [Effexor XR] 225 mg PO DAILY 30 Days cap.er.24h 07/02/20 traZODone HCL [Desyrel] 100 mg PO HS PRN 30 Days tab 07/02/20 Allergies Allergy/AdvReac Type Severity Reaction Status Date / Time bacitracin Allergy Rash/Hives Verified 09/27/20 16:55 Review of Systems ROS Statement: Those systems with pertinent positive or pertinent negative responses have been documented in the HPI. ROS Other: All systems not noted in ROS Statement are negative. Past Medical History Past Medical History: Deep Vein Thrombosis (DVT), Hypertension Additional Past Medical History / Comment(s): concussion History of Any Multi-Drug Resistant Organisms: None Reported Additional Past Surgical History / Comment(s): jaw surgery Past Psychological History: Anxiety, Depression Smoking Status: Former smoker Past Alcohol Use History: Abuse Past Drug Use History: None Reported General Exam - General Exam Comments Initial Comments: GENERAL: Patient is well-developed and well-nourished. Patient is nontoxic and in no acute distress. HEAD: Atraumatic, normocephalic. EYES: Pupils equal round and reactive to light, extraocular movements intact, sclera anicteric, conjunctiva are normal. Eyelids were unremarkable. ENT: TMs normal, nares patent, oropharynx clear without exudates. Moist mucous membranes. NECK: Normal range of motion, supple without lymphadenopathy or JVD. LUNGS: Unlabored respirations. Breath sounds clear to auscultation bilaterally and equal. No wheezes rales or rhonchi. HEART: Regular rate and rhythm without murmurs, rubs or gallops. ABDOMEN: Soft, nontender, normoactive bowel sounds. No guarding, no rebound. No masses appreciated. : Deferred MUSCULOSKELETAL: Patient has mild pain with palpation of the lateral malleolus of the right ankle, she has moderate swelling and bruising as well. She does have full active range of motion of the right ankle with some pain at the end range. She is neurovascular intact. No pain in the right foot or right lower leg. No clubbing or cyanosis. NEUROLOGICAL: Patient is alert and oriented x 3. Motor and sensory are also intact. Cranial nerves II through XII grossly intact. Symmetrical smile. Normal speech, normal gait. PSYCH: Normal mood, normal affect. SKIN: Warm, Dry, normal turgor, no rashes or lesions noted. Limitations: no limitations Course Vital Signs 09/27/20 09/27/20 16:49 18:19 Temperature 98.3 F 98.4 F Pulse Rate 94 80 Respiratory 20 18 Rate Blood Pressure 122/60 138/86 O2 Sat by Pulse 97 96 Oximetry Medical Decision Making - Medical Decision Making Patient is a 55-year-old female here for right ankle pain after she accidentally kicked a steel table at work yesterday. X-rays today reveal no acute fractures dislocations. I discussed with patient this is most likely a bone contusion. I did give her an Jose bandage to go home with for swelling control, talked about icing and elevation. She will follow up with her S physician in 3 days. She is stable for discharge. Return parameters were discussed with the patient she verbalized understanding. Disposition Clinical Impression: Contusion of right ankle Disposition: HOME SELF-CARE Condition: Stable Instructions (If sedation given, give patient instructions): Foot Contusion (ED) Additional Instructions: Please return to the Emergency Department if symptoms worsen or any other concerns. Recommend compression to the ankle, elevation above the heart and icing to the area. Please follow-up with your regular doctor if symptoms persist. Is patient prescribed a controlled substance at d/c from ED?: No Referrals: Constantine Figueroa DO [Primary Care Provider] - 1-2 days Erasmo Jane MD [STAFF PHYSICIAN] - 1-2 days
[2020-09-27 18:20] VITALS: BP 138/86; PULSE 80; RESP 18; TEMP 98.4
== END 2020-09-27 18:19 | disposition home or self-care (01) ==
LOC: EC 16:46
DX: S90.01XA Contusion of right ankle, initial encounter (principal); I10 Essential (primary) hypertension; Z79.899 Other long term (current) drug therapy; Z87.891 Personal history of nicotine dependence; Z86.718 Personal history of other venous thrombosis and embolism; Z79.01 Long term (current) use of anticoagulants; Z88.1 Allergy status to other antibiotic agents; W22.03XA Walked into furniture, initial encounter; Y92.69 Other specified industrial and construction area as the place of occurrence of the external cause; Y99.0 Civilian activity done for income or pay
CPT/HCPCS: 99283

== ENCOUNTER → 2020-09-30 | Outpatient (CLI) | payer OTHER ==
--- NOTE | 2020-09-30 11:34 | XR ---
EXAMINATION TYPE: XR foot complete RT DATE OF EXAM: 09/30/2020 COMPARISON: NONE HISTORY: 55 year-old female right foot contusion and lateral pain TECHNIQUE: 3 views FINDINGS: Hallux valgus deformity with bunion and mild to moderate degenerative change of the first MTP joint. Incidental bipartite tibial sesamoid. Additional degenerative change at the first metatarsal sesamoid joint. Small to moderate-sized plantar calcaneal spur. No acute fracture, subluxation, or dislocatio n. IMPRESSION: Hallux valgus with bunion and of [id number] degenerative change at the first MTP joint. No acut e osseous abnormality seen.
== END | disposition home or self-care (01) ==
LOC: RADXRMAIN 11:09
PROVIDERS: ATTEND Emergency Medicine
DX: M20.11 Hallux valgus (acquired), right foot (principal); M21.611 Bunion of right foot; M19.071 Primary osteoarthritis, right ankle and foot

== ENCOUNTER → 2020-10-04 | Outpatient (CLI) | payer OTHER ==
--- NOTE | 2020-10-04 11:59 | XR ---
EXAMINATION TYPE: XR ankle complete RT DATE OF EXAM: 10/04/2020 CLINICAL HISTORY: Injury with pain and bruising and swelling. TECHNIQUE: Frontal, lateral and oblique images of the right ankle are obtained. COMPARISON: Ankle xray one week ago. FINDINGS: There is no acute fracture/dislocation evident in the right ankle. The ankle mortise symm etry remains within normal limits. Interval improvement of soft tissue swelling over the lateral mall eolus. Focal cortical thickening or sclerosis medial anterior aspect of the distal tubular metadiaphy sis unchanged from prior. Small to moderate-sized inferior calcaneal spur redemonstrated. IMPRESSION: As above.
== END | disposition home or self-care (01) ==
LOC: RADXRMAIN 11:35
PROVIDERS: ATTEND Emergency Medicine
DX: M77.31 Calcaneal spur, right foot (principal)

== ENCOUNTER 2021-02-10 10:59 | Emergency (ER) | payer MEDICAID, OTHER ==
[2021-02-10 11:07] VITALS: BP 122/81; PULSE 68; RESP 18; TEMP 98.6
[2021-02-10] MEDS ORDERED: ACETAMINOPHEN TAB 500 MG TAB PO STA (11:58)
--- NOTE | 2021-02-10 12:06 | ED ---
Upper Extremity HPI - General Chief Complaint: Extremity Injury, Upper Stated Complaint: L hand injury Time Seen by Provider: 02/10/21 11:36 Source: patient, RN notes reviewed Mode of arrival: ambulatory Limitations: no limitations - History of Present Illness Initial Comments: 55-year-old pleasant white female presents to the emergency room ambulatory with complaints of left hand and wrist injury 2 days ago after falling outside. Patient states she tripped and put hand out to stop her fall 2 days ago. Patient states increasing swelling and pain with movement. Patient is on xeralto for a left DVT from 2 years ago, unknown cause. Patient also history of hypertension. Patient states she did hit her chin but denies head injuries, denies loss of consciousness. Patient denies C-spine tenderness or Back pain. MD Complaint: Injury to:: left -: days(s) (3) Other Extremity Injury: Hand: Left, Wrist: Left Other Injuries: face (chin) Place: outdoors Severity scale (1-10): 9 Improves With: cold therapy, immobilization Worsens With: movement of extremity Context: fall (Ground-level fall on outstretched hand) Associated Symptoms: denies other symptoms - Related Data Home Medications Medication Instructions Recorded Confirmed hydroCHLOROthiazide 25 mg PO HS 03/26/20 06/28/20 Fluticasone Propionate [Flonase 1 spray EA NOSTRIL DAILY PRN 06/26/20 06/28/20 Allergy Relief] Previous Rx's Medication Instructions Recorded Atorvastatin [Lipitor] 20 mg PO HS #30 tab 04/01/20 Famotidine [Pepcid] 20 mg PO BID #1 tablet 06/28/20 Acamprosate Calcium [Campral] 666 mg PO TID 30 Days tab 07/02/20 Folic Acid 1 mg PO DAILY 30 Days tab 07/02/20 Multivitamins, Thera [Multivitamin 1 tab PO DAILY 30 Days tab 07/02/20 (formulary)] OLANZapine [ZyPREXA] 5 mg PO BID 30 Days tab 07/02/20 Rivaroxaban [Xarelto] 20 mg PO DAILY tab 07/02/20 Sodium Chloride 0.65% Nasal [Deep 2 spray NASAL QID PRN spray 07/02/20 Sea (Saline)] Thiamine [Vitamin B-1] 100 mg PO AC-BID 30 Days tab 07/02/20 Venlafaxine HCl ER [Effexor XR] 225 mg PO DAILY 30 Days cap.er.24h 07/02/20 traZODone HCL [Desyrel] 100 mg PO HS PRN 30 Days tab 07/02/20 Allergies Allergy/AdvReac Type Severity Reaction Status Date / Time bacitracin Allergy Rash/Hives Verified 02/10/21 11:06 Review of Systems ROS Statement: Those systems with pertinent positive or pertinent negative responses have been documented in the HPI. ROS Other: All systems not noted in ROS Statement are negative. Past Medical History Past Medical History: Deep Vein Thrombosis (DVT), Hypertension Additional Past Medical History / Comment(s): concussion History of Any Multi-Drug Resistant Organisms: None Reported Additional Past Surgical History / Comment(s): jaw surgery Past Psychological History: Anxiety, Depression Smoking Status: Former smoker Past Alcohol Use History: Abuse Past Drug Use History: None Reported General Exam Limitations: no limitations General appearance: alert, in no apparent distress Head exam: Present: other (Ecchymosis to the chin) Eye exam: Present: normal appearance, PERRL, EOMI. Absent: scleral icterus, conjunctival injection, periorbital swelling Pupils: Present: normal accommodation ENT exam: Present: normal exam, normal oropharynx, mucous membranes moist Neck exam: Present: normal inspection, full ROM. Absent: tenderness, meningismus, lymphadenopathy, thyromegaly Respiratory exam: Present: normal lung sounds bilaterally. Absent: respiratory distress, wheezes, rales, rhonchi, stridor Cardiovascular Exam: Present: regular rate, normal rhythm, normal heart sounds. Absent: systolic murmur, diastolic murmur, rubs, gallop, clicks GI/Abdominal exam: Present: soft, normal bowel sounds. Absent: distended, tenderness, guarding, rebound, rigid Left Forearm Wrist exam: Present: tenderness, swelling, ecchymosis. Absent: full ROM, deformity, crepitus Hand Wrist exam: Present: tenderness, swelling, abrasion (Palmar aspect), ecchymosis. Absent: full ROM, deformity, crepitus, dislocation, amputation, nail avulsion, subungual hematoma Neuro motor exam: Present: wrist extension intact, other (Unable to perform due to swelling) Vascular: Present: normal capillary refill, radial pulse. Absent: vascular compromise, Pallo, pulse deficit radial art, pulse deficit ulnar art Back exam: Present: normal inspection, full ROM. Absent: tenderness, CVA tenderness (R), CVA tenderness (L) Neurological exam: Present: alert, oriented X3, CN II-XII intact Psychiatric exam: Present: normal affect, normal mood Skin exam: Present: warm, dry, intact, normal color. Absent: rash Course Vital Signs 02/10/21 11:04 Temperature 98.6 F Pulse Rate 68 Respiratory 18 Rate Blood Pressure 122/81 O2 Sat by Pulse 100 Oximetry Medical Decision Making - Medical Decision Making X-ray of the left hand shows no fracture or dislocation, x-ray of the left wrist also shows no fracture or dislocation, CT of the brain shows no midline shift or hemorrhage or masses. This appears to be soft tissue swelling and bruising likely related to patient's use of xarelto. Jose wrap applied patient to follow up with primary care doctor in 1 week. He is discussed with Dr. Drake. Disposition Clinical Impression: Hand injury, Contusion, hand Disposition: HOME SELF-CARE Condition: Good Instructions (If sedation given, give patient instructions): Hand Sprain (ED) Additional Instructions: Elevate, Wear Jose wrap, ice, and Tylenol for pain. Follow-up with primary care doctor next week. Is patient prescribed a controlled substance at d/c from ED?: No Referrals: Constantine Figueroa DO [Primary Care Provider] - 1-2 days Ye Fernandes MD [STAFF PHYSICIAN] - 1-2 days Time of Disposition: 13:36
--- NOTE | 2021-02-10 12:44 | XR ---
Left hand and left wrist HISTORY: Pain, trauma 3 views of the left hand, 4 views of the left wrist correlated to prior left hand dated 11/22/2019 Left hand shows osteoarthritic change as on prior exam. There is soft tissue swelling present. IMPRESSION: No fracture or dislocation evident
--- NOTE | 2021-02-10 12:53 | CT ---
EXAMINATION TYPE: CT brain wo con DATE OF EXAM: 02/10/2021 COMPARISON: Prior CT 03/07/2020 HISTORY: Head injury-chin CT DLP: 1105.8 mGycm Automated exposure control for dose reduction was used. Helical imaging through the brain. FINDINGS: There is no hemorrhage or hydrocephalus. Periventricular white matter shows some patchy low-attenuati on. Calcified pineal gland again noted. Calvarium is intact. Paranasal sinuses and mastoid air cells as visualized are normal. IMPRESSION: NO ACUTE BRAIN ABNORMALITY.
== END 2021-02-10 14:35 | disposition home or self-care (01) ==
LOC: EC 10:59
DX: S60.222A Contusion of left hand, initial encounter (principal); S00.83XA Contusion of other part of head, initial encounter; I10 Essential (primary) hypertension; F41.9 Anxiety disorder, unspecified; F32.9 Major depressive disorder, single episode, unspecified; Z87.891 Personal history of nicotine dependence; Z86.718 Personal history of other venous thrombosis and embolism; Z79.01 Long term (current) use of anticoagulants; Z79.899 Other long term (current) drug therapy; W01.0XXA Fall on same level from slipping, tripping and stumbling without subsequent striking against object, initial encounter; Y92.89 Other specified places as the place of occurrence of the external cause
CPT/HCPCS: 70450; 99284

== ENCOUNTER 2021-05-23 11:08 | Emergency (ER) | payer OTHER ==
--- NOTE | 2021-05-23 11:54 | ED ---
Alcohol HPI - General Source: patient, RN notes reviewed Mode of arrival: ambulatory Limitations: no limitations <NadeemOlman Cm - Last Filed: 05/23/21 11:52> <Letha Rubin - Last Filed: 05/23/21 22:31> - General Stated Complaint: ETOH Time Seen by Provider: 05/23/21 11:52 - History of Present Illness Initial Comments: This a 55-year-old female presents emergency Department chief complaint of alcohol abuse, alcohol withdrawal. Patient states she is scheduled to rehab tomorrow morning. Patient drinks at least 12 beers a day along with a pint of liquor. Patient states she just just feels ill, weak feeling no chest pain or shortness of breath. Patient denies any suicidal ideation currently. Patient does admit to depression. No drug abuse (NadeemOlmna) Patient is a 55-year-old female with past medical history of daily alcohol abuse or patient states he drinks at least 12 beers and a pint of liquor every day. She was supposed to start rehab last week however she did not have any of her medications with her and it is an inpatient rehab. She states she was sent away however has an appointment tomorrow at 9 AM to go back. The patient's brother called her this morning to check on her. She seemed extremely intoxicated and was saying that she was depressed. Brother was concerned for her well-being and therefore the patient's [id number] came to pick her up. Patient reports extreme depression with alcohol intake but states she manages her depression better when she isnt drinking. Family is inserted with her being home alone overnight until her appointment tomorrow. The patient denies any withdrawal symptoms. Denies suicidal ideations or homicidal ideations. She has been through rehab once before 4 years ago. Patient denies any other substance abuse. Has no complaints of chest pain, shortness of breath, weakness, headache, recent injuries or falls. No other alleviating, precipitating or modifying factors (Letha Rubin) - Related Data Home Medications Medication Instructions Recorded Confirmed hydroCHLOROthiazide 25 mg PO DAILY 03/26/20 05/23/21 lisinopriL [Zestril] 20 mg PO DAILY 05/23/21 05/23/21 traZODone HCL [Desyrel] 200 mg PO HS 05/23/21 05/23/21 Previous Rx's Medication Instructions Recorded Atorvastatin [Lipitor] 20 mg PO HS #30 tab 04/01/20 Acamprosate Calcium [Campral] 666 mg PO TID 30 Days tab 07/02/20 Folic Acid 1 mg PO DAILY 30 Days tab 07/02/20 Rivaroxaban [Xarelto] 20 mg PO DAILY tab 07/02/20 Venlafaxine HCl ER [Effexor XR] 225 mg PO DAILY 30 Days cap.er.24h 07/02/20 Allergies Allergy/AdvReac Type Severity Reaction Status Date / Time bacitracin Allergy Rash/Hives Verified 05/23/21 14:40 Review of Systems ROS Other: All systems not noted in ROS Statement are negative. <Olman Silver - Last Filed: 05/23/21 11:52> ROS Other: All systems not noted in ROS Statement are negative. <Letha Rubin - Last Filed: 05/23/21 22:31> ROS Statement: Those systems with pertinent positive or pertinent negative responses have been documented in the HPI. Past Medical History Past Medical History: Deep Vein Thrombosis (DVT), Hypertension Additional Past Medical History / Comment(s): concussion History of Any Multi-Drug Resistant Organisms: None Reported Additional Past Surgical History / Comment(s): jaw surgery Past Psychological History: Anxiety, Depression Smoking Status: Former smoker Past Alcohol Use History: Abuse Past Drug Use History: None Reported <Olman Silver - Last Filed: 05/23/21 11:52> Course Vital Signs 05/23/21 05/23/21 05/23/21 11:50 14:32 15:48 Temperature 98.0 F Pulse Rate 85 86 88 Respiratory 20 18 18 Rate Blood Pressure 121/78 113/89 116/78 O2 Sat by Pulse 94 L 97 95 Oximetry 05/23/21 18:16 Temperature Pulse Rate 100 Respiratory 18 Rate Blood Pressure 126/69 O2 Sat by Pulse 94 L Oximetry Medical Decision Making - Lab Data Result diagrams: 05/23/21 13:46 05/23/21 13:46 <Letha Rubin - Last Filed: 05/23/21 22:31> - Medical Decision Making Upon arrival patient is placed in room 9. A thorough history and physical exam was performed. IV is established laboratory studies were conducted. Patient's alcohol level is 472 at this time. Remainder patient's labs are within normal limits. Platelet count 122. White blood cell count 2.7. Due to the patient's significantly elevated blood alcohol level, patient will be observed in the emergency department and discharged at 6 AM with family member who is going to take her to the Rehab center in [place]. Patient agreed to this treatment plan, demonstrates no signs of withdrawal at this time. (Letha Rubin) - Lab Data Lab Results 05/23/21 05/23/21 05/23/21 Range/Units 13:26 13:26 13:46 WBC 2.7 L (3.8-10.6) k/uL RBC 4.20 (3.80-5.40) m/uL Hgb 13.6 (11.4-16.0) gm/dL Hct 41.0 (34.0-46.0) % MCV 97.7 (80.0-100.0) fL MCH 32.4 (25.0-35.0) pg MCHC 33.2 (31.0-37.0) g/dL RDW 13.2 (11.5-15.5) % Plt Count 122 L (150-450) k/uL MPV 7.0 Neutrophils % 49 % Lymphocytes % 38 % Monocytes % 7 % Eosinophils % 1 % Basophils % 1 % Neutrophils # 1.3 (1.3-7.7) k/uL Lymphocytes # 1.0 (1.0-4.8) k/uL Monocytes # 0.2 (0-1.0) k/uL Eosinophils # 0.0 (0-0.7) k/uL Basophils # 0.0 (0-0.2) k/uL Sodium (137-145) mmol/L Potassium (3.5-5.1) mmol/L Chloride (98-107) mmol/L Carbon Dioxide (22-30) mmol/L Anion Gap mmol/L BUN (7-17) mg/dL Creatinine (0.52-1.04) mg/dL Est GFR (CKD-EPI)AfAm (>60 ml/min/1.73 sqM) Est GFR (CKD-EPI)NonAf (>60 ml/min/1.73 sqM) Glucose (74-99) mg/dL Calcium (8.4-10.2) mg/dL Magnesium (1.6-2.3) mg/dL Total Bilirubin (0.2-1.3) mg/dL AST (14-36) U/L ALT (4-34) U/L Alkaline Phosphatase (38-126) U/L Total Protein (6.3-8.2) g/dL Albumin (3.5-5.0) g/dL Urine Color Light Yellow Urine Appearance Clear (Clear) Urine pH 5.5 (5.0-8.0) Ur Specific [place] 1.006 (1.001-1.035) Urine Protein Negative (Negative) Urine Glucose (UA) Negative (Negative) Urine Ketones Negative (Negative) Urine Blood Trace H (Negative) Urine Nitrite Negative (Negative) Urine Bilirubin Negative (Negative) Urine Urobilinogen <2.0 (<2.0) mg/dL Ur Leukocyte Esterase Negative (Negative) Urine RBC 1 (0-5) /hpf Urine WBC 1 (0-5) /hpf Ur Squamous Epith Cells <1 (0-4) /hpf Amorphous Sediment Rare H (None) /hpf Urine Bacteria Rare H (None) /hpf Urine Mucus Rare H (None) /hpf Urine Opiates Screen Not Detected (NotDetected) Ur Oxycodone Screen Not Detected (NotDetected) Urine Methadone Screen Not Detected (NotDetected) Ur Propoxyphene Screen Not Detected (NotDetected) Ur Barbiturates Screen Not Detected (NotDetected) U Tricyclic Antidepress Not Detected (NotDetected) Ur Phencyclidine Scrn Not Detected (NotDetected) Ur Amphetamines Screen Not Detected (NotDetected) U Methamphetamines Scrn Not Detected (NotDetected) U Benzodiazepines Scrn Not Detected (NotDetected) Urine Cocaine Screen Not Detected (NotDetected) U Marijuana (THC) Screen Not Detected (NotDetected) Serum Alcohol mg/dL Coronavirus (PCR) Not Detected (Not Detectd) 05/23/21 Range/Units 13:46 WBC (3.8-10.6) k/uL RBC (3.80-5.40) m/uL Hgb (11.4-16.0) gm/dL Hct (34.0-46.0) % MCV (80.0-100.0) fL MCH (25.0-35.0) pg MCHC (31.0-37.0) g/dL RDW (11.5-15.5) % Plt Count (150-450) k/uL MPV Neutrophils % % Lymphocytes % % Monocytes % % Eosinophils % % Basophils % % Neutrophils # (1.3-7.7) k/uL Lymphocytes # (1.0-4.8) k/uL Monocytes # (0-1.0) k/uL Eosinophils # (0-0.7) k/uL Basophils # (0-0.2) k/uL Sodium 141 (137-145) mmol/L Potassium 5.4 H (3.5-5.1) mmol/L Chloride 106 (98-107) mmol/L Carbon Dioxide 24 (22-30) mmol/L Anion Gap 11 mmol/L BUN 9 (7-17) mg/dL Creatinine 0.49 L (0.52-1.04) mg/dL Est GFR (CKD-EPI)AfAm >90 (>60 ml/min/1.73 sqM) Est GFR (CKD-EPI)NonAf >90 (>60 ml/min/1.73 sqM) Glucose 89 (74-99) mg/dL Calcium 8.5 (8.4-10.2) mg/dL Magnesium 2.1 (1.6-2.3) mg/dL Total Bilirubin 0.9 (0.2-1.3) mg/dL AST 87 H (14-36) U/L ALT 52 H (4-34) U/L Alkaline Phosphatase 49 (38-126) U/L Total Protein 7.1 (6.3-8.2) g/dL Albumin 4.4 (3.5-5.0) g/dL Urine Color Urine Appearance (Clear) Urine pH (5.0-8.0) Ur Specific Hammond (1.001-1.035) Urine Protein (Negative) Urine Glucose (UA) (Negative) Urine Ketones (Negative) Urine Blood (Negative) Urine Nitrite (Negative) Urine Bilirubin (Negative) Urine Urobilinogen (<2.0) mg/dL Ur Leukocyte Esterase (Negative) Urine RBC (0-5) /hpf Urine WBC (0-5) /hpf Ur Squamous Epith Cells (0-4) /hpf Amorphous Sediment (None) /hpf Urine Bacteria (None) /hpf Urine Mucus (None) /hpf Urine Opiates Screen (NotDetected) Ur Oxycodone Screen (NotDetected) Urine Methadone Screen (NotDetected) Ur Propoxyphene Screen (NotDetected) Ur Barbiturates Screen (NotDetected) U Tricyclic Antidepress (NotDetected) Ur Phencyclidine Scrn (NotDetected) Ur Amphetamines Screen (NotDetected) U Methamphetamines Scrn (NotDetected) U Benzodiazepines Scrn (NotDetected) Urine Cocaine Screen (NotDetected) U Marijuana (THC) Screen (NotDetected) Serum Alcohol 472 H* mg/dL Coronavirus (PCR) (Not Detectd) - EKG Data EKG Comments: EKG demonstrates a sinus rhythm with a ventricular rate of 81. NV interval 142. QRS 94. QTC of 480. No acute ST segment elevations. Inverted T-wave in 3 and aVF (Letha Rubin) Disposition <Olman Silver - Last Filed: 05/23/21 11:52> Is patient prescribed a controlled substance at d/c from ED?: No <Letha Rubin - Last Filed: 05/23/21 22:31> Clinical Impression: Alcohol use disorder, severe, dependence, Depression, major Disposition: HOME SELF-CARE Condition: Stable Instructions (If sedation given, give patient instructions): Alcohol Intoxication (ED) Additional Instructions: Please proceed to the rehab facility. Do not go home. Return to the ED should you have any trouble with admission at the facility. Referrals: Constantine Figueroa DO [Primary Care Provider] - 1-2 days
[2021-05-23 14:00] LABS: Basophils % (A) 1 %; Eosinophils % (A) 1 %; HGB 13.6 gm/dL (11.4-16.0); Lymphocytes % (A) 38 %; MCH 32.4 pg (25.0-35.0); MCHC 33.2 g/dL (31.0-37.0); MCV 97.7 fL (80.0-100.0); Monocytes # (A) 0.2 k/uL (0-1.0); Monocytes % (A) 7 %; Neutrophils # (A) 1.3 k/uL (1.3-7.7); Neutrophils % (A) 49 %; Platelet Count 122 k/uL (150-450); RDW 13.2 % (11.5-15.5); WBC 2.7 k/uL (3.8-10.6)
[2021-05-23 14:18] LABS: ALT 52 U/L (4-34); AST 87 U/L (14-36); African American GFR (CKD) >90 (>60 ml/min/1.73 sqM); Albumin 4.4 g/dL (3.5-5.0); Alkaline Phosphatase 49 U/L (38-126); Anion Gap 11 mmol/L; Blood Urea Nitrogen 9 mg/dL (7-17); Calcium 8.5 mg/dL (8.4-10.2); Carbon Dioxide 24 mmol/L (22-30); Chloride 106 mmol/L (98-107); Glucose 89 mg/dL (74-99); Magnesium 2.1 mg/dL (1.6-2.3); Non-African American GFR(CKD) >90 (>60 ml/min/1.73 sqM); Sodium 141 mmol/L (137-145); Total Bilirubin 0.9 mg/dL (0.2-1.3); Total Protein 7.1 g/dL (6.3-8.2)
[2021-05-23 14:22] LABS: Amorphous Sediment,Urine Rare /hpf; Appearance,Urine Clear (Clear); Bacteria,Urine Rare /hpf; Bilirubin,Urine Negative (Negative); Blood,Urine Trace (Negative); Color,Urine Light Yellow; Glucose,Urine (UA) Negative (Negative); Ketones,Urine Negative (Negative); Leukocyte Esterase,Urine Negative (Negative); Mucus,Urine Rare /hpf; Nitrite,Urine Negative (Negative); PH, Urine 5.5 (5.0-8.0); Protein,Urine Negative (Negative); RBC,Urine 1 /hpf (0-5); Specific Gravity,Urine 1.006 (1.001-1.035); Squamous Epithelial Cell,Urine <1 /hpf (0-4); Urobilinogen,Urine <2.0 mg/dL (<2.0); WBC,Urine 1 /hpf (0-5)
[2021-05-23 14:35] LABS: Alcohol 472 mg/dL
[2021-05-23 14:36] LABS: Potassium 5.4 mmol/L (3.5-5.1)
[2021-05-23 14:41] LABS: Amphetamine Screen,Urine Not Detected (NotDetected); Barbiturate Screen,Urine Not Detected (NotDetected); Benzodiazepines Screen,Urine Not Detected (NotDetected); Cocaine Screen,Urine Not Detected (NotDetected); Methadone Screen, Urine Not Detected (NotDetected); Opiate Screen,Urine Not Detected (NotDetected); Oxycodone Screen, Urine Not Detected (NotDetected); Phencyclidine Screen,Urine Not Detected (NotDetected); Tricyclic Antidepressant,Urine Not Detected (NotDetected); Urn Cannabinoid Scrn Not Detected (NotDetected)
[2021-05-23] MEDS ORDERED: THIAMINE 100 MG TAB PO SCH (17:30)
[2021-05-23] MEDS ORDERED: LORazepam 2 MG/ML INJ IV PRN (18:11)
[2021-05-23] MEDS ORDERED: THIAMINE 100 MG/ML 2 ML VIAL IM STA (18:11)
[2021-05-23] MEDS: LORazepam 2 MG/ML INJ IV PRN ×3 (18:14→21:59)
[2021-05-24] MEDS: LORazepam 2 MG/ML INJ IV PRN ×2 (00:51→03:20)
[2021-05-24 03:16] VITALS: BP 135/90; RESP 20
[2021-05-24 06:25] VITALS: PULSE 92; TEMP 98.7
== END 2021-05-24 06:25 | disposition home or self-care (01) ==
LOC: EC 11:08
DX: F10.20 Alcohol dependence, uncomplicated (principal); F32.9 Major depressive disorder, single episode, unspecified; I10 Essential (primary) hypertension; F41.9 Anxiety disorder, unspecified; Z20.822 Contact with and (suspected) exposure to COVID-19; Z86.718 Personal history of other venous thrombosis and embolism; Z87.891 Personal history of nicotine dependence; Y90.8 Blood alcohol level of 240 mg/100 ml or more
CPT/HCPCS: 36415; 93005; 80053; 83735; 85025; 81001; 80306; 87635; 99284; 96374; 96376; 96372; G0480; J2060 ×2; J3411; 80320

== ENCOUNTER 2021-09-08 13:35 | Observation (INO) | payer OTHER ==
--- NOTE | 2021-09-08 14:08 | ED ---
Psych HPI - General Chief Complaint: Psychiatric Symptoms Stated Complaint: Mental Health Time Seen by Provider: 09/08/21 13:50 Source: patient, EMS, RN notes reviewed Mode of arrival: EMS Limitations: no limitations - History of Present Illness Initial Comments: 56-year-old female presents emergency department via EMS with chief complaint of psychiatric issues. She states she is severely depressed, suicidal. She's been having thoughts of harm herself. No self-harm at this time. She does admit to some alcohol use no drug abuse. No physical complaints. - Related Data Home Medications Medication Instructions Recorded Confirmed hydroCHLOROthiazide 25 mg PO DAILY 03/26/20 05/23/21 lisinopriL [Zestril] 20 mg PO DAILY 05/23/21 05/23/21 traZODone HCL [Desyrel] 200 mg PO HS 05/23/21 05/23/21 Previous Rx's Medication Instructions Recorded Atorvastatin [Lipitor] 20 mg PO HS #30 tab 04/01/20 Acamprosate Calcium [Campral] 666 mg PO TID 30 Days tab 07/02/20 Folic Acid 1 mg PO DAILY 30 Days tab 07/02/20 Rivaroxaban [Xarelto] 20 mg PO DAILY tab 07/02/20 Venlafaxine HCl ER [Effexor XR] 225 mg PO DAILY 30 Days cap.er.24h 07/02/20 Allergies Allergy/AdvReac Type Severity Reaction Status Date / Time bacitracin Allergy Rash/Hives Verified 09/08/21 13:53 Review of Systems ROS Statement: Those systems with pertinent positive or pertinent negative responses have been documented in the HPI. ROS Other: All systems not noted in ROS Statement are negative. Past Medical History Past Medical History: Deep Vein Thrombosis (DVT), Hypertension Additional Past Medical History / Comment(s): concussion History of Any Multi-Drug Resistant Organisms: None Reported Additional Past Surgical History / Comment(s): jaw surgery Past Psychological History: Anxiety, Depression Smoking Status: Former smoker Past Alcohol Use History: Abuse Past Drug Use History: None Reported General Exam Limitations: no limitations General appearance: alert, in no apparent distress, anxious Head exam: Present: atraumatic, normocephalic, normal inspection Eye exam: Present: normal appearance, PERRL, EOMI. Absent: scleral icterus, conjunctival injection, periorbital swelling ENT exam: Present: normal exam, mucous membranes moist Neck exam: Present: normal inspection, full ROM. Absent: tenderness, meningismus, lymphadenopathy Respiratory exam: Present: normal lung sounds bilaterally. Absent: respiratory distress, wheezes, rales, rhonchi, stridor Cardiovascular Exam: Present: regular rate, normal rhythm, normal heart sounds. Absent: systolic murmur, diastolic murmur, rubs, gallop, clicks Psychiatric exam: Present: depressed Skin exam: Present: warm, dry, intact, normal color. Absent: rash Course Vital Signs 09/08/21 13:49 Temperature 97.7 F Pulse Rate 73 Respiratory 18 Rate Blood Pressure 121/90 O2 Sat by Pulse 94 L Oximetry Medical Decision Making - Medical Decision Making 56-year-old presented for psychiatric evaluation. Patient is depressed, suicidal. Patient is intoxicated with alcohol of 285. Patient will be admitted for observation pending psychiatric treatment. Disposition Clinical Impression: Alcohol intoxication, Depression, major, Suicidal ideation Disposition: ADMITTED IP TO THIS HOSP Referrals: Constantine Figueroa DO [Primary Care Provider] - 1-2 days
[2021-09-08] MEDS ORDERED: NALOXONE 0.4 MG/ML 1 ML VIAL IV PRN (15:13)
[2021-09-08] MEDS ORDERED: ACETAMINOPHEN TAB 325 MG TAB PO PRN (15:13)
[2021-09-08] MEDS ORDERED: ONDANSETRON 4 MG/2 ML VIAL IVP PRN (15:13)
[2021-09-08] MEDS ORDERED: LORazepam 2 MG/ML INJ IV PRN ×3 (15:15)
[2021-09-08 17:13] LABS: Amphetamine Screen,Urine Not Detected (NotDetected); Benzodiazepines Screen,Urine Not Detected (NotDetected); Cocaine Screen,Urine Not Detected (NotDetected); Opiate Screen,Urine Not Detected (NotDetected); Phencyclidine Screen,Urine Not Detected (NotDetected); Tricyclic Antidepressant,Urine Not Detected (NotDetected); Urn Cannabinoid Scrn Not Detected (NotDetected)
[2021-09-08 17:14] LABS: Barbiturate Screen,Urine Not Detected (NotDetected); Methadone Screen, Urine Not Detected (NotDetected); Oxycodone Screen, Urine Not Detected (NotDetected)
--- NOTE | 2021-09-08 17:17 | P.HPIM ---
History of Present Illness 56-year-old female came in because of severe depression and suicidal ideations. Patient was having these thoughts for some time. Patient has been drinking alcohol because of that reason patient urinated her family members and friends as she doesn't want to them to no her present condition patient is severely depressed because of the home situation, financial issues. Patient does drink a 12 use a day and the vodka. Patient admits to drinking 3 beers today before coming to the hospital and patient alcohol level was high around 280. Patient is alert oriented 3. Patient is being admitted the for possibility of alcohol withdrawal. REVIEW OF SYSTEMS: CONSTITUTIONAL: No fever, no malaise, no fatigue. HEENT: No recent visual problems or hearing problems. Denied any sore throat. CARDIOVASCULAR: No chest pain, orthopnea, PND, no palpitations, no syncope. PULMONARY: No shortness of breath, no cough, no hemoptysis. GASTROINTESTINAL: No diarrhea, no nausea, no vomiting, no abdominal pain. NEUROLOGICAL: No headaches, no weakness, no numbness. HEMATOLOGICAL: Denies any bleeding or petechiae. GENITOURINARY: Denies any burning micturition, frequency, or urgency. MUSCULOSKELETAL/RHEUMATOLOGICAL: Denies any joint pain, swelling, or any muscle pain. ENDOCRINE: Denies any polyuria or polydipsia. The rest of the 14-point review of systems is negative. PHYSICAL EXAMINATION: GENERAL: The patient is alert and oriented x3, not in any acute distress. Well developed, well nourished. HEENT: Pupils are round and equally reacting to light. EOMI. No scleral icterus. No conjunctival pallor. Normocephalic, atraumatic. No pharyngeal erythema. No thyromegaly. CARDIOVASCULAR: S1 and S2 present. No murmurs, rubs, or gallops. PULMONARY: Chest is clear to auscultation, no wheezing or crackles. ABDOMEN: Soft, nontender, nondistended, normoactive bowel sounds. No palpable organomegaly. MUSCULOSKELETAL: No joint swelling or deformity. EXTREMITIES: No cyanosis, clubbing, or pedal edema. NEUROLOGICAL: Gross neurological examination did not reveal any focal deficits. SKIN: No rashes. Assessment and plan 1 depression and suicidal ideation: Patient will be resumed on her antidepressant psychiatry was consulted and patient will have a sitter -Alcohol abuse: Counseling was provided patient is a very pleasant woman willing to quit alcohol but the doesn't know how to deal with depression and wanting help. -Alcohol withdrawal: Patient will be monitored for that and patient will be on Ativan CW protocol -Hypertension patient blood pressure is well controlled without any medications patient didn't take her hydrochlorothiazide and lisinopril for couple days and spit of which patient is still within normal limits BP. 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 which is being continued at this time patient will need lifelong anticoagulation DVT prophylaxis: Lovenox Past Medical History Past Medical History: Deep Vein Thrombosis (DVT), Hypertension Additional Past Medical History / Comment(s): concussion History of Any Multi-Drug Resistant Organisms: None Reported Additional Past Surgical History / Comment(s): jaw surgery Past Psychological History: Anxiety, Depression Smoking Status: Former smoker Past Alcohol Use History: Abuse Past Drug Use History: None Reported Medications and Allergies Home Medications Medication Instructions Recorded Confirmed Type hydroCHLOROthiazide 25 mg PO DAILY 03/26/20 09/08/21 History Acamprosate Calcium [Campral] 666 mg PO TID 30 Days tab 07/02/20 09/08/21 Rx Folic Acid 1 mg PO DAILY 30 Days tab 07/02/20 09/08/21 Rx Rivaroxaban [Xarelto] 20 mg PO DAILY tab 07/02/20 09/08/21 Rx Venlafaxine HCl ER [Effexor XR] 225 mg PO DAILY 30 Days cap.er.24h 07/02/20 09/08/21 Rx lisinopriL [Zestril] 20 mg PO DAILY 05/23/21 09/08/21 History traZODone HCL [Desyrel] 200 mg PO HS PRN 05/23/21 09/08/21 History Atorvastatin [Lipitor] 20 mg PO DAILY 09/08/21 09/08/21 History Neomycin/Polymyxin B/Dexametha 1 drop BOTH EYES QID 09/08/21 09/08/21 History [[id number] Eye Drop] Allergies Allergy/AdvReac Type Severity Reaction Status Date / Time bacitracin Allergy Rash/Hives Verified 09/08/21 15:57 Physical Exam Vitals: Vital Signs Temp Pulse Resp BP Pulse Ox 09/08/21 13:49 97.7 F 73 18 121/90 94 L Intake and Output 09/08/21 09/08/21 09/08/21 06:59 14:59 22:59 Other: Weight 97.522 kg
[2021-09-08] MEDS: THIAMINE 100 MG TAB PO SCH (17:59)
[2021-09-08] MEDS: NEOMYCIN-POLYMYXIN-DEXAMETH (3.5-10,000-0.1) DROPS 5 ML BTL BOTH EYES SCH ×3 (17:59→23:21)
[2021-09-08] MEDS: ATORVASTATIN 20 MG TAB PO SCH (17:59)
[2021-09-08] MEDS: FOLIC ACID 1 MG TAB PO SCH (18:01)
[2021-09-08] MEDS: ALPRAZolam 0.25 MG TAB PO PRN (19:54)
[2021-09-08] MEDS: ACAMPROSATE CALCIUM 333 MG TABLET.DR PO SCH ×2 (22:45→23:21)
[2021-09-08] MEDS: traZODone HCL 100 MG TAB PO PRN (23:25)
[2021-09-09] MEDS: NEOMYCIN-POLYMYXIN-DEXAMETH (3.5-10,000-0.1) DROPS 5 ML BTL BOTH EYES SCH ×4 (06:26→20:49)
[2021-09-09] MEDS: RIVAROXABAN 20 MG TAB PO SCH (08:20)
[2021-09-09] MEDS: THIAMINE 100 MG TAB PO SCH ×2 (08:20→16:33)
[2021-09-09] MEDS: VENLAFAXINE HCL ER 75 MG CAP PO SCH (08:20)
[2021-09-09] MEDS: FOLIC ACID 1 MG TAB PO SCH (08:20)
[2021-09-09] MEDS: ATORVASTATIN 20 MG TAB PO SCH (08:20)
[2021-09-09] MEDS: ALPRAZolam 0.25 MG TAB PO PRN (08:20)
[2021-09-09] MEDS: ACAMPROSATE CALCIUM 333 MG TABLET.DR PO SCH ×3 (08:20→20:49)
[2021-09-09] MEDS: PANTOPRAZOLE 40 MG/10 ML VIAL IV SCH (08:21)
[2021-09-09] MEDS ORDERED: ENOXAPARIN 40 MG/0.4 ML SYRINGE SQ SCH (09:00)
[2021-09-09] MEDS ORDERED: lisinopriL 20 MG TAB PO SCH (09:00)
[2021-09-09 10:44] LABS: HCT 35.7 % (37.2-46.3); HGB 11.4 g/dL (12.0-15.0); MCH 31.1 pg (27.0-32.0); MCHC 31.9 g/dL (32.0-37.0); MCV 97.3 fL (80.0-97.0); Mean Platelet Volume 10.1 fL (9.5-12.2); Platelet Count 114 X 10*3/uL (140-440); RBC 3.67 X 10*6/uL (4.10-5.20); RDW 13.4 % (11.5-14.5); WBC 3.75 X 10*3/uL (4.50-10.00)
--- NOTE | 2021-09-09 10:59 | P.DS ---
Providers Date of admission: 09/08/21 15:51 Attending physician: Yessenia Khan Consults: 09/08/21 15:14 Consult Physician Urgent Consulting Provider: Sterling Cadet Reason/Comments: Depression, suicidal ideation Do you want consulting provider notified?: Already Contacted Primary care physician: Constantine [facility] Course: 56-year-old female came in because of severe depression and suicidal ideations. Patient was having these thoughts for some time. Patient has been drinking alcohol because of that reason patient urinated her family members and friends as she doesn't want to them to no her present condition patient is severely depressed because of the home situation, financial issues. Patient does drink a 12 use a day and the vodka. Patient admits to drinking 3 beers today before coming to the hospital and patient alcohol level was high around 280. Patient is alert oriented 3. Patient is being admitted the for possibility of alcohol withdrawal. 09/09/2021 Patient is clinically doing well only required Ativan once today and once yesterday. Patient doesn't have any significant alcohol withdrawal symptoms except for mild shaking patient didn't have any previous history of significant alcohol withdrawals either patient may need once in every 6 or 8 hours of Ativan for next couple days which can be handled at on the psychiatric floor. Patient is otherwise medically stable to be discharged. Patient is willing to go to psychiatric floor. And continues to have a sitter now. PHYSICAL EXAMINATION: GENERAL: The patient is alert and oriented x3, not in any acute distress. Well developed, well nourished. HEENT: Pupils are round and equally reacting to light. EOMI. No scleral icterus. No conjunctival pallor. Normocephalic, atraumatic. No pharyngeal erythema. No thyromegaly. CARDIOVASCULAR: S1 and S2 present. No murmurs, rubs, or gallops. PULMONARY: Chest is clear to auscultation, no wheezing or crackles. ABDOMEN: Soft, nontender, nondistended, normoactive bowel sounds. No palpable organomegaly. MUSCULOSKELETAL: No joint swelling or deformity. EXTREMITIES: No cyanosis, clubbing, or pedal edema. NEUROLOGICAL: Gross neurological examination did not reveal any focal deficits. SKIN: No rashes. Assessment and plan 1 depression and suicidal ideation: Patient will be resumed on her antidepressant psychiatry yet to evaluate patient will have a sitter -Alcohol abuse: Counseling was provided. -Alcohol withdrawal: Significant withdrawals patient is medically stable to be discharged to psychiatric floor -Hypertension patient blood pressure at require any antidepressants medications blood pressure need to be monitored without medications if needed we can resume it on the psychiatric floor. 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 which is being continued at this time patient will need lifelong anticoagulation Plan - Discharge Summary New Discharge Prescriptions: New Thiamine [Vitamin B-1] 100 mg PO BID-W/MEALS #60 tab Continue Venlafaxine HCl ER [Effexor XR] 225 mg PO DAILY 30 Days cap.er.24h Folic Acid 1 mg PO DAILY 30 Days tab Rivaroxaban [Xarelto] 20 mg PO DAILY tab Acamprosate Calcium [Campral] 666 mg PO TID 30 Days tab Atorvastatin [Lipitor] 20 mg PO DAILY traZODone HCL [Desyrel] 200 mg PO HS PRN PRN Reason: Insomnia Neomycin/Polymyxin B/Dexametha [Dtryfr-Keibs-Qfxnxucs Eye Drop] 1 drop BOTH EYES QID Discontinued hydroCHLOROthiazide 25 mg PO DAILY lisinopriL [Zestril] 20 mg PO DAILY Discharge Medication List Acamprosate Calcium [Campral] 666 mg PO TID 30 Days tab 07/02/20 [Rx] Folic Acid 1 mg PO DAILY 30 Days tab 07/02/20 [Rx] Rivaroxaban [Xarelto] 20 mg PO DAILY tab 07/02/20 [Rx] Venlafaxine HCl ER [Effexor XR] 225 mg PO DAILY 30 Days cap.er.24h 07/02/20 [Rx] traZODone HCL [Desyrel] 200 mg PO HS PRN 05/23/21 [History] Atorvastatin [Lipitor] 20 mg PO DAILY 09/08/21 [History] Neomycin/Polymyxin B/Dexametha [Ciyucq-Bstcu-Onzxebfm Eye Drop] 1 drop BOTH EYES QID 09/08/21 [History] Thiamine [Vitamin B-1] 100 mg PO BID-W/MEALS #60 tab 09/09/21 [Rx] Follow up Appointment(s)/Referral(s): Constantine Figueroa DO [Primary Care Provider] - 1-2 days Discharge Disposition: TRANSFER TO PSYCH HOSP/UNIT
[2021-09-09 13:11] LABS: African American GFR (CKD) 116.4 (60.0-200.0); Albumin 4.1 g/dL (3.8-4.9); Albumin/Globulin Ratio 2.41 (1.60-3.17); Anion Gap 15.8 mmol/L (10.00-18.00); BUN/Creat Ratio 14.83 Ratio (12.00-20.00); Blood Urea Nitrogen 8.9 mg/dL (9.0-27.0); Calcium 8.8 mg/dL (8.7-10.3); Carbon Dioxide 24.2 mmol/L (20.0-27.5); Globulin 1.7 g/dL (1.6-3.3); Non-African American GFR(CKD) 100.5 (60.0-200.0); Potassium 3.6 mmol/L (3.5-5.5); Total Bilirubin 0.8 mg/dL (0.30-1.20); Total Protein 5.8 g/dL (6.2-8.2)
--- NOTE | 2021-09-09 14:21 | P.CN ---
Psychiatric Consult - . Consult date: 09/09/21 Consult:: 09/09/21 14:20 IDENTIFYING DATA: This patient is a , unemployed, 56-year-old female significant history of alcohol use disorder presented to the hospital with a chief complaint of suicidal ideation the context of heavy alcohol use. HISTORY OF PRESENT ILLNESS: The patient presented to the hospital on 09/08/21, with a chief complaint of severe depression and suicidal ideation with thoughts to harm herself. The patient reports that over the past year things have been getting worse use numerous stressors including financial, family, and her relapsing to heavy alcohol use. Prior to her presentation to the hospital, the patient admitted to drinking 3 beers and had a blood alcohol level around 280. Psychiatry was consulted for evaluation and management of the patient's depression and suicidal ideation. Upon evaluation by this provider, the patient does admit that she's been feeling increasing depression over the past year. She reports that she has not been in adherent with her medications over the past 2-3 days. She reports that her depression has been gradually worsening in the context of increasing alcohol use. She reports that she has been drinking up to 12 beers per day on top of a fifth of vodka. She expresses that she feels like she is in a constant cycle and has been disappointed her family due to her heavy alcohol use. As to depressive symptoms, the patient does report occasional suicidal thoughts but is currently denying any suicidal or homicidal ideation, intention, and/or plan. She does report that she has difficulty with sleep and low appetite but is denying any hopelessness or helplessness. She reports no anhedonia. The patient does express some future orientation stating that she is scheduled to have eye surgery in a few days. She is looking for to having this procedure done as she has been waiting for a while. The patient reports that she has been following up with [facility] but has not been seeing her therapist as frequently as she would've liked. She reports that she primarily sees Dr. Harrison who manages her medications. She states that she has been in adherent with medications but has no longer been taking any naltrexone. She is currently requesting that she is placed back on the Vivitrol injection. She is scheduled for surgery in a few days and is agreeable to being on naltrexone at this time. She is also wishing to go back to rehabilitation for her alcohol use disorder. PAST PSYCHIATRIC HISTORY: Patient has a history of depression and alcohol use disorder. Patient is currently on a regimen of trazodone, Effexor, and Campral. She has had 3 prior psychiatric inpatient hospitalizations with the last time being in June 2020. She is currently open with [facility]. The patient endorses chronic suicidal ideation but denies any previous attempts at suicide. PAST MEDICAL HISTORY: Past Medical History: Deep Vein Thrombosis (DVT), Hypertension Additional Past Medical History / Comment(s): concussion History of Any Multi-Drug Resistant Organisms: None Reported Additional Past Surgical History / Comment(s): jaw surgery Past Psychological History: Anxiety, Depression Smoking Status: Former smoker Past Alcohol Use History: Abuse Past Drug Use History: None Reported ALLERGIES: Bacitracin CHEMICAL DEPENDENCY HISTORY: Patient reports that she has been drinking 12 beers and a fifth of vodka daily prior to her presentation the hospital. She reports a long-standing history of alcohol use disorder. She denies any nicotine use at this time. She reports no other drug use. FAMILY PSYCHIATRIC/SUBSTANCE USE HISTORY: She reports a significant family history of alcohol use disorder. She reports several uncles who were alcoholic. SOCIAL HISTORY: Patient is the second of 8 children. She reports no history of physical, emotional, sexual abuse. She graduated high school. She her after 10 years of marriage. She has no children. 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 She is currently unemployed. MENTAL STATUS EXAM: General Appearance: Patient appears to be stated age is alert, pleasant, and cooperative. Patient appears to have fair hygiene and grooming wearing hospital gown with fair eye contact. Behavior: Patient is calmly lying in bed without any agitated behavior. Speech: Patient's speech is fluent and nonpressured. Mood/Affect: Patient reports their mood is "depressed", affect is euthymic with appropriate range. Suicidality/Homicidality: Patient denies having any suicidal or homicidal ideation intent or plan. Perceptions: Patient denies any visual hallucinations and denies any auditory hallucinations Though content/process: There is no evidence of any delusional thought content and thought process is linear and goal-directed. Memory and concentration: AOX3, grossly intact for the purposes of this session. Can spell "WORLD" backwards Judgment and insight: Fair Vital Signs Temp 98.8 F 09/09/21 07:46 Pulse 83 09/09/21 08:00 Resp 16 09/09/21 08:00 BP 130/76 09/09/21 07:46 Pulse Ox 93 L 09/09/21 07:46 Intake & Output 09/08/21 09/09/21 09/09/21 18:59 06:59 18:59 Intake Total 200 Balance 200 Weight 97.522 kg Intake: Oral 200 Other: # Voids 1 Laboratory Results - Last 24 Hours 09/08/21 09/08/21 09/08/21 15:26 16:06 17:38 WBC RBC Hgb Hct MCV MCH MCHC RDW Plt Count MPV Absolute Nucleated RBC NRBC/100 WBC Diff Sodium Potassium Chloride Carbon Dioxide Anion Gap BUN Creatinine Est GFR (CKD-EPI)AfAm Est GFR (CKD-EPI)NonAf BUN/Creatinine Ratio Glucose Calcium Magnesium 1.8 Total Bilirubin AST ALT Alkaline Phosphatase Total Protein Albumin Globulin Albumin/Globulin Ratio Urine Opiates Screen Not Detected Ur Oxycodone Screen Not Detected Urine Methadone Screen Not Detected Ur Propoxyphene Screen Not Detected Ur Barbiturates Screen Not Detected U Tricyclic Antidepress Not Detected Ur Phencyclidine Scrn Not Detected Ur Amphetamines Screen Not Detected U Methamphetamines Scrn Not Detected U Benzodiazepines Scrn Not Detected Urine Cocaine Screen Not Detected U Marijuana (THC) Screen Not Detected Coronavirus (PCR) Not Detected 09/09/21 09/09/21 05:09 05:09 WBC 3.75 L RBC 3.67 L Hgb 11.4 L Hct 35.7 L MCV 97.3 H MCH 31.1 MCHC 31.9 L RDW 13.4 Plt Count 114 L MPV 10.1 Absolute Nucleated RBC 0 NRBC/100 WBC Diff 0 Sodium 141 Potassium 3.6 Chloride 101 Carbon Dioxide 24.2 Anion Gap 15.80 BUN 8.9 L Creatinine 0.6 Est GFR (CKD-EPI)AfAm 116.4 Est GFR (CKD-EPI)NonAf 100.5 BUN/Creatinine Ratio 14.83 Glucose 91 Calcium 8.8 Magnesium Total Bilirubin 0.80 AST 23 ALT 20 Alkaline Phosphatase 55 Total Protein 5.8 L Albumin 4.1 Globulin 1.7 Albumin/Globulin Ratio 2.41 Urine Opiates Screen Ur Oxycodone Screen Urine Methadone Screen Ur Propoxyphene Screen Ur Barbiturates Screen U Tricyclic Antidepress Ur Phencyclidine Scrn Ur Amphetamines Screen U Methamphetamines Scrn U Benzodiazepines Scrn Urine Cocaine Screen U Marijuana (THC) Screen Coronavirus (PCR) IMPRESSIONS: Alcohol use disorder Alcohol-induced depressive disorder PLAN: -At this time patient DOES NOT meet criteria for inpatient psychiatric admission. The patient has numerous protective factors despite her risk factors. Protective factors include future orientation (desire to have her upcoming surgery, go to rehabilitation), no prior attempts at suicide, supportive family, and active treatment. Risk factors include heavy alcohol use. -Would recommend the following medication changes/additions: Continue Campral 166 mg by mouth 3 times a day for alcohol use disorder Continue Effexor 225 mg by mouth daily for depression/anxiety Continue trazodone 200 mg by mouth at bedtime when necessary for insomnia Start naltrexone 50 mg by mouth daily for alcohol use disorder. We would consider the transition to Vivitrol but the patient is scheduled for eye surgery and we are uncertain about the pain management will be involved. -Discontinue one-to-one sitter -Recommend social work to provide patient with outpatient appointments with [facility] as well as to provide the patient with the access number for inpatient rehabilitation. -Approximately 20 minutes of the time was spent providing the patient was supportive psychotherapy. Psychoeducation on her addiction as well as discussion on safety planning and coping skills took place. Patient states that she feels safe to return home and to pursue rehabilitation. She was advised that if she was to feel suicidal present with imminent risk of harm to self or others to immediately utilize crisis numbers or return to the emergency department. -Psychiatry will sign off at this point, please contact with any questions. 09/09/21 14:20
[2021-09-09] MEDS: traZODone HCL 100 MG TAB PO PRN (22:20)
[2021-09-10] MEDS: THIAMINE 100 MG TAB PO SCH (07:22)
[2021-09-10] MEDS: ATORVASTATIN 20 MG TAB PO SCH (07:22)
[2021-09-10] MEDS: VENLAFAXINE HCL ER 75 MG CAP PO SCH (07:22)
[2021-09-10] MEDS: FOLIC ACID 1 MG TAB PO SCH (07:22)
[2021-09-10] MEDS: NEOMYCIN-POLYMYXIN-DEXAMETH (3.5-10,000-0.1) DROPS 5 ML BTL BOTH EYES SCH (07:23)
[2021-09-10] MEDS: ACAMPROSATE CALCIUM 333 MG TABLET.DR PO SCH (07:23)
[2021-09-10] MEDS: RIVAROXABAN 20 MG TAB PO SCH (07:24)
[2021-09-10 08:04] VITALS: BP 147/90; PULSE 76; RESP 17; TEMP 97.7
[2021-09-10] MEDS: PANTOPRAZOLE 40 MG/10 ML VIAL IV SCH (08:37)
[2021-09-10] MEDS ORDERED: NALTREXONE HCL 50 MG TAB PO SCH (09:00)
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
== END 2021-09-10 10:14 | disposition home or self-care (01) ==
LOC: EC 13:35 → 4SSUR 15:51
PROVIDERS: ADMIT Internal Medicine; ATTEND Internal Medicine
DX: F32.9 Major depressive disorder, single episode, unspecified (principal); F10.129 Alcohol abuse with intoxication, unspecified; F10.139 Alcohol abuse with withdrawal, unspecified; T46.4X6A Underdosing of angiotensin-converting-enzyme inhibitors, initial encounter; T50.2X6A Underdosing of carbonic-anhydrase inhibitors, benzothiadiazides and other diuretics, initial encounter; Z91.128 Patient's intentional underdosing of medication regimen for other reason; F41.9 Anxiety disorder, unspecified; R45.851 Suicidal ideations; I10 Essential (primary) hypertension; Z20.822 Contact with and (suspected) exposure to COVID-19; Z79.01 Long term (current) use of anticoagulants; Z79.899 Other long term (current) drug therapy; Z88.1 Allergy status to other antibiotic agents; Z86.718 Personal history of other venous thrombosis and embolism; Z87.820 Personal history of traumatic brain injury; Z87.891 Personal history of nicotine dependence; Z59.9 Problem related to housing and economic circumstances, unspecified; Y90.8 Blood alcohol level of 240 mg/100 ml or more; Z71.41 Alcohol abuse counseling and surveillance of alcoholic; Z81.1 Family history of alcohol abuse and dependence
CPT/HCPCS: 82075; 99285; 80053; 83735; 85027; 80306; 87635; G0378 ×3

== ENCOUNTER 2021-11-14 20:27 | Emergency (ER) | payer OTHER ==
[2021-11-14 20:33] VITALS: BP 122/78; PULSE 97; RESP 20; TEMP 97.4
--- NOTE | 2021-11-14 21:23 | US ---
EXAMINATION TYPE: US venous doppler duplex LE LT DATE OF EXAM: 11/14/2021 9:07 PM COMPARISON: NONE CLINICAL HISTORY: pain/swelling. left leg pain and edema. history of DVT left leg. patient on blood t hinner SIDE PERFORMED: Left TECHNIQUE: The lower extremity deep venous system is examined utilizing real time linear array sonog swapna with graded compression, doppler sonography and color-flow sonography. VESSELS IMAGED: Common Femoral Vein Deep Femoral Vein Greater Saphenous Vein * Femoral Vein Popliteal Vein Small Saphenous Vein * Proximal Calf Veins (* superficial vessels) Left Leg: +positive for DVT left popliteal vein. appears chronic, thready flow with partial compress ion IMPRESSION: There is chronic deep vein thrombosis in the left popliteal vein. No acute deep vein thro mbosis.
--- NOTE | 2021-11-14 22:35 | ED ---
General Adult HPI - General Chief complaint: Extremity Problem,Nontraumatic Stated complaint: Lt Leg Pain/Swelling Time Seen by Provider: 11/14/21 22:02 Source: patient, RN notes reviewed Mode of arrival: wheelchair Limitations: no limitations - History of Present Illness Initial comments: 56-year-old female presents to the emergency department for evaluation of left lower extremity edema. Patient states her leg has been swollen for the past 2 months and she has been unable to improve the situation using Epsom salts soaks and compression hose. Patient states she started a new job recently and is on her feet for a prolonged amount of time. Does report striking her left knee on a pallet on Wednesday and attributes bruising to this. States she developed pain in the upper portion of the left lower extremity today and became concerned that she had a blood clot in her leg. Patient states she does have a history of DVT in that extremity and is currently on oral anticoagulants. States she had the procedure done by a vascular doctor in [place] a few years ago. Denies fever, headache, chest pain, shortness of breath, difficulty breathing, extremity weakness, or loss of function. - Related Data Home Medications Medication Instructions Recorded Confirmed Atorvastatin [Lipitor] 20 mg PO HS 09/08/21 11/14/21 Albuterol Sulfate [Proair Hfa] 2 puff INHALATION RT-Q6H PRN 11/14/21 11/14/21 Fluticasone Nasal [place] [Flonase 1 - 2 spray EA NOSTRIL BID PRN 11/14/21 11/14/21 Nasal [place]] Gabapentin 300 mg PO TID 11/14/21 11/14/21 Naltrexone Microspheres [Vivitrol] 380 mg IM Q28D 11/14/21 11/14/21 lisinopriL [Zestril] 20 mg PO HS 11/14/21 11/14/21 Previous Rx's Medication Instructions Recorded Folic Acid 1 mg PO DAILY 30 Days tab 07/02/20 Rivaroxaban [Xarelto] 20 mg PO DAILY tab 07/02/20 Thiamine [Vitamin B-1] 100 mg PO BID-W/MEALS #60 tab 09/09/21 Venlafaxine HCl ER [Effexor XR] 225 mg PO DAILY 30 Days #90 cap 09/10/21 traZODone HCL [Desyrel] 200 mg PO HS PRN 30 Days #60 tab 09/10/21 Allergies Allergy/AdvReac Type Severity Reaction Status Date / Time bacitracin Allergy Rash/Hives Verified 11/14/21 22:36 Review of Systems ROS Statement: Those systems with pertinent positive or pertinent negative responses have been documented in the HPI. ROS Other: All systems not noted in ROS Statement are negative. Past Medical History Past Medical History: Deep Vein Thrombosis (DVT), Hypertension Additional Past Medical History / Comment(s): concussion History of Any Multi-Drug Resistant Organisms: None Reported Past Surgical History: No Surgical Hx Reported Additional Past Surgical History / Comment(s): jaw surgery Past Psychological History: Anxiety, Depression Smoking Status: Former smoker Past Alcohol Use History: Occasional Past Drug Use History: None Reported - Past Family History Father Additional Family Medical History / Comment(s): Spleen CA Mother Additional Family Medical History / Comment(s): empysema General Exam Limitations: no limitations (Well-developed, well-nourished female in no acute distress. Initial temperature 97.4, pulse 97, respirations 20, blood pressure 122/78, pulse 99% on room air.) General appearance: alert, in no apparent distress ENT exam: Present: normal oropharynx Neck exam: Present: normal inspection, full ROM. Absent: tenderness, meningismus, lymphadenopathy Respiratory exam: Present: normal lung sounds bilaterally. Absent: respiratory distress, wheezes, rales, rhonchi, stridor Cardiovascular Exam: Present: regular rate, normal rhythm, normal heart sounds. Absent: systolic murmur, diastolic murmur, rubs, gallop, clicks GI/Abdominal exam: Present: soft, normal bowel sounds. Absent: distended, tenderness, guarding, rebound, rigid Left Upper Leg exam: Present: normal inspection, full ROM, tenderness (Tenderness upon palpation of the medial aspect of the left upper leg extending from mid thigh to knee). Absent: swelling, ecchymosis, deformity, erythema Knee exam: Present: full ROM, tenderness (Tenderness upon palpation of the anterior and posterior aspects of the knee; most discomfort associated with palpation along the medial aspect of the knee ), swelling (Mild diffuse swelling of the left knee). Absent: abrasion, laceration, ecchymosis, deformity, erythema Lower Leg exam: Present: full ROM, swelling (Trace pitting edema to the lower extremity). Absent: tenderness, erythema, Homans' sign Ankle exam: Present: full ROM, swelling. Absent: tenderness, ecchymosis, erythema Foot/Toe exam: Present: full ROM, swelling. Absent: tenderness, erythema Neurovascular tendon exam: Present: no vascular compromise. Absent: pulse deficit, abnormal cap refill, motor deficit, sensory deficit Neurological exam: Present: alert, oriented X3, CN II-XII intact Psychiatric exam: Present: normal affect, normal mood Skin exam: Present: warm, dry, intact, normal color. Absent: rash Course Vital Signs 11/14/21 20:30 Temperature 97.4 F L Pulse Rate 97 Respiratory 20 Rate Blood Pressure 122/78 O2 Sat by Pulse 99 Oximetry - Reevaluation(s) Reevaluation #1: 11/14/21 23:50 Informed that patient is not in the room and was unable to be located in the department. It is assumed that she has eloped. Medical Decision Making - Medical Decision Making 56-year-old female with past medical history of DVT and hypertension presents to the emergency department for evaluation of left lower extremity pain and edema which has been ongoing for the past 2 months. Upon exam, patient is well- appearing and in no acute distress. She is able to ambulate without difficulty. Physical exam findings are significant for left lower extremity swelling with trace pitting edema of the lower leg. No vascular compromise. +2 pedal and posttibial pulses palpable. Negative Linda sign. Patient is wearing compression hose. Doppler study of the left lower extremity was obtained and does show presence of chronic DVT with no acute findings. Results were discussed with patient; states she is taking her blood thinning medication as prescribed. Suggested additional laboratory studies to which patient was agreeable. However, patient eloped prior to obtaining blood work therefore she for she did not receive discharge instructions or follow-up care recommendations. My attending physician was Dr. Chicas. - Radiology Data Radiology results: report reviewed Venous Doppler study of the left lower extremity was obtained. Report was reviewed in its entirety. Impression per Dr. Martinez is chronic deep vein thrombosis in the left popliteal vein. No acute deep vein thrombosis. Disposition Clinical Impression: Left leg pain, Chronic deep vein thrombosis (DVT) of left lower extremity Disposition: Left Against Medical Advice Condition: Stable Instructions (If sedation given, give patient instructions): Leg Pain (ED) Additional Instructions: Continue taking medications as prescribed. Follow-up with your PCP for a recheck. Return to the emergency department with any new, worsening, or concerning symptoms. Is patient prescribed a controlled substance at d/c from ED?: No Referrals: Constantine Figueroa DO [Primary Care Provider] - 1-2 days
== END 2021-11-14 23:46 | disposition left against medical advice (07) ==
LOC: EC 20:27
DX: I82.532 Chronic embolism and thrombosis of left popliteal vein (principal); I10 Essential (primary) hypertension; F41.9 Anxiety disorder, unspecified; F32.A Depression, unspecified; Z79.01 Long term (current) use of anticoagulants; Z87.891 Personal history of nicotine dependence
CPT/HCPCS: 99284

== ENCOUNTER 2022-01-07 14:38 | Observation (INO) | payer OTHER ==
--- NOTE | 2022-01-07 15:12 | ED ---
General Adult HPI - General Chief complaint: Psychiatric Symptoms Stated complaint: depression Time Seen by Provider: 01/07/22 14:55 Source: patient, EMS, RN notes reviewed Mode of arrival: EMS Limitations: no limitations - History of Present Illness Initial comments: Patient is a pleasant 56-year-old female presenting to the emergency Department with alcohol and depression. Patient states she is not a good place. Patient admits to having suicidal thoughts. No homicidal thoughts. No new physical complaints. Patient admits to drinking a lot of alcohol today. No street drugs. - Related Data Home Medications Medication Instructions Recorded Confirmed Atorvastatin [Lipitor] 20 mg PO HS 09/08/21 11/14/21 Albuterol Sulfate [Proair Hfa] 2 puff INHALATION RT-Q6H PRN 11/14/21 11/14/21 Fluticasone Nasal [place] [Flonase 1 - 2 spray EA NOSTRIL BID PRN 11/14/21 11/14/21 Nasal [place]] Gabapentin 300 mg PO TID 11/14/21 11/14/21 Naltrexone Microspheres [Vivitrol] 380 mg IM Q28D 11/14/21 11/14/21 lisinopriL [Zestril] 20 mg PO HS 11/14/21 11/14/21 Previous Rx's Medication Instructions Recorded Folic Acid 1 mg PO DAILY 30 Days tab 07/02/20 Rivaroxaban [Xarelto] 20 mg PO DAILY tab 07/02/20 Thiamine [Vitamin B-1] 100 mg PO BID-W/MEALS #60 tab 09/09/21 Venlafaxine HCl ER [Effexor XR] 225 mg PO DAILY 30 Days #90 cap 09/10/21 traZODone HCL [Desyrel] 200 mg PO HS PRN 30 Days #60 tab 09/10/21 Allergies Allergy/AdvReac Type Severity Reaction Status Date / Time bacitracin Allergy Rash/Hives Verified 01/07/22 14:52 Review of Systems ROS Statement: Those systems with pertinent positive or pertinent negative responses have been documented in the HPI. ROS Other: All systems not noted in ROS Statement are negative. Constitutional: Denies: fever Eyes: Denies: eye pain ENT: Denies: ear pain Respiratory: Denies: cough Cardiovascular: Denies: chest pain Endocrine: Denies: fatigue Gastrointestinal: Denies: abdominal pain Genitourinary: Denies: dysuria Musculoskeletal: Denies: back pain Skin: Denies: rash Neurological: Denies: weakness Psychiatric: Reports: as per HPI, depression Past Medical History Past Medical History: Deep Vein Thrombosis (DVT), Hypertension Additional Past Medical History / Comment(s): concussion History of Any Multi-Drug Resistant Organisms: None Reported Past Surgical History: No Surgical Hx Reported Additional Past Surgical History / Comment(s): jaw surgery Past Psychological History: Anxiety, Depression Smoking Status: Former smoker Past Alcohol Use History: Abuse, Daily, Heavy Past Drug Use History: None Reported - Past Family History Father Additional Family Medical History / Comment(s): Spleen CA Mother Additional Family Medical History / Comment(s): empysema General Exam Limitations: no limitations General appearance: alert, in no apparent distress Head exam: Present: normocephalic Eye exam: Present: normal appearance Neck exam: Present: normal inspection Respiratory exam: Present: normal lung sounds bilaterally Cardiovascular Exam: Present: regular rate, normal rhythm GI/Abdominal exam: Present: soft. Absent: tenderness Extremities exam: Present: normal inspection Neurological exam: Present: alert Psychiatric exam: Present: normal affect, normal mood Skin exam: Present: normal color. Absent: abrasion Course Vital Signs 01/07/22 14:39 Temperature 98.2 F Pulse Rate 80 Respiratory 18 Rate Blood Pressure 129/90 O2 Sat by Pulse 98 Oximetry Medical Decision Making - Medical Decision Making Case discussed with Dr. Baker, who will admit for observation covering hospital observation call. Disposition Clinical Impression: Depression, Alcohol intoxication Disposition: ADMITTED IP TO THIS HOSP Is patient prescribed a controlled substance at d/c from ED?: No Referrals: Constantine Figueroa DO [Primary Care Provider] - 1-2 days Time of Disposition: 15:34
[2022-01-07] MEDS ORDERED: LORazepam 2 MG/ML INJ IV PRN ×2 (15:35)
[2022-01-07] MEDS ORDERED: NALOXONE 0.4 MG/ML 1 ML VIAL IV PRN (15:35)
[2022-01-07] MEDS ORDERED: traZODone HCL 100 MG TAB PO PRN (16:41)
[2022-01-07 16:43] LABS: HCT 37.4 % (34.0-46.0); HGB 12.1 gm/dL (11.4-16.0); MCH 31.6 pg (25.0-35.0); MCHC 32.5 g/dL (31.0-37.0); MCV 97.2 fL (80.0-100.0); Mean Platelet Volume 7.8; Platelet Count 183 k/uL (150-450); RBC 3.84 m/uL (3.80-5.40); RDW 14.3 % (11.5-15.5); WBC 3.5 k/uL (3.8-10.6)
--- NOTE | 2022-01-07 16:46 | P.HPIM ---
History of Present Illness H&P Date: 01/07/22 Chief Complaint: alcohol withdrawal 56-year-old woman with medical history of alcohol abuse, depression, DVT, hypertension presented for evaluation of alcohol withdrawal and depression. Patient says that she's drinking about a fifth of hard liquor daily and has been doing so for decades. She says that she's gone through alcohol withdrawal before, but cannot recall any of the details, such as whether or not she had hallucinations or seizures. She's also been having thoughts of suicide, passive, without a plan. She is post-be following up with psychiatry. She denies fevers, chills, nausea, vomiting, chest pain, palpitations, syncopal, presyncope, abdominal pain, cough, dyspnea, constipation, diarrhea, dysuria, dyschezia, numbness/weakness of extremities. In the emergency room, patient is afebrile, 129/90, heart rate is 80, 98% on room air. Labs and imaging are pending. All Systems reviewed and pertinent positives and negatives noted in HPI, all other symptoms are negative Gen: awake, alert HEENT: normocephalic, atraumatic, good hearing acuity, moist mucous membranes Resp: good air exchange, breathing comfortably with no accessory muscle use CVS: good distal perfusion x 4, GI: soft, NTTP, ND : no SPT, no CVAT, garza catheter not present MSK: no pitting edema, no clubbing Neuro: non-focal, moving all extremities Psych: cooperative, euthymic mood Labs and imaging are pending Assessment/plan: ETOH Intoxication with Impending Withdrawal ETOH Abuse/Dependence - Admit to observation - [facility] protocol + ativan PRN - Thiamine, MVI, folate - cessation counseling Depression with Suicidal Ideation -psychiatry consult -suicide precautions -resume home venlafaxine, trazodone Hx DVT HTN - Home meds reviewed and reconciled Patient is Full Code Past Medical History Past Medical History: Deep Vein Thrombosis (DVT), Hypertension Additional Past Medical History / Comment(s): concussion History of Any Multi-Drug Resistant Organisms: None Reported Past Surgical History: No Surgical Hx Reported Additional Past Surgical History / Comment(s): jaw surgery Past Psychological History: Anxiety, Depression Smoking Status: Former smoker Past Alcohol Use History: Abuse, Daily, Heavy Past Drug Use History: None Reported - Past Family History Father Additional Family Medical History / Comment(s): Spleen CA Mother Additional Family Medical History / Comment(s): empysema Medications and Allergies Home Medications Medication Instructions Recorded Confirmed Type Rivaroxaban [Xarelto] 20 mg PO DAILY tab 07/02/20 01/07/22 Rx Thiamine [Vitamin B-1] 100 mg PO BID-W/MEALS #60 tab 09/09/21 01/07/22 Rx Venlafaxine HCl ER [Effexor XR] 225 mg PO DAILY 30 Days #90 cap 09/10/21 01/07/22 Rx traZODone HCL [Desyrel] 200 mg PO HS PRN 30 Days #60 tab 09/10/21 01/07/22 Rx Albuterol Sulfate [Proair Hfa] 2 puff INHALATION RT-Q6H PRN 11/14/21 01/07/22 History Fluticasone Nasal [place] [Flonase 1 - 2 spray EA NOSTRIL BID PRN 11/14/21 01/07/22 History Nasal [place]] Gabapentin 300 mg PO TID 11/14/21 01/07/22 History Naltrexone Microspheres [Vivitrol] 380 mg IM Q28D 11/14/21 01/07/22 History Allergies Allergy/AdvReac Type Severity Reaction Status Date / Time bacitracin Allergy Rash/Hives Verified 01/07/22 15:51 Physical Exam Osteopathic Statement: *. No significant issues noted on an osteopathic structural exam other than those noted in the History and Physical/Consult. Vitals: Vital Signs Temp Pulse Resp BP Pulse Ox 01/07/22 14:39 98.2 F 80 18 129/90 98 Intake and Output 01/07/22 01/07/22 01/07/22 06:59 14:59 22:59 Other: Weight 96.162 kg
[2022-01-07 16:50] LABS: Amphetamine Screen,Urine Not Detected (NotDetected); Barbiturate Screen,Urine Not Detected (NotDetected); Benzodiazepines Screen,Urine Not Detected (NotDetected); Cocaine Screen,Urine Not Detected (NotDetected); Methadone Screen, Urine Not Detected (NotDetected); Opiate Screen,Urine Not Detected (NotDetected); Oxycodone Screen, Urine Not Detected (NotDetected); Phencyclidine Screen,Urine Not Detected (NotDetected); Tricyclic Antidepressant,Urine Not Detected (NotDetected); Urn Cannabinoid Scrn Not Detected (NotDetected)
[2022-01-07 16:53] LABS: ALT 14 U/L (4-34); AST 28 U/L (14-36); African American GFR (CKD) >90 (>60 ml/min/1.73 sqM); Albumin 4.2 g/dL (3.5-5.0); Alkaline Phosphatase 71 U/L (38-126); Anion Gap 5 mmol/L; Blood Urea Nitrogen 10 mg/dL (7-17); Calcium 8.4 mg/dL (8.4-10.2); Carbon Dioxide 31 mmol/L (22-30); Chloride 105 mmol/L (98-107); Glucose 106 mg/dL (74-99); Magnesium 2.2 mg/dL (1.6-2.3); Non-African American GFR(CKD) >90 (>60 ml/min/1.73 sqM); Potassium 4.7 mmol/L (3.5-5.1); Sodium 141 mmol/L (137-145); Total Bilirubin 0.4 mg/dL (0.2-1.3); Total Protein 6.9 g/dL (6.3-8.2)
[2022-01-07] MEDS ORDERED: THIAMINE 100 MG TAB PO SCH (17:30)
[2022-01-07 17:34] LABS: RBC Morphology Normal
[2022-01-07 17:38] LABS: Eosinophils # (M) 0.04 k/uL (0-0.7); Lymphocytes # (M) 1.54 k/uL (1.0-4.8); Monocytes # (M) 0.21 k/uL (0-1.0); Neutrophils # (M) 1.72 k/uL (1.3-7.7); Neutrophils % (M) 49 %; Nucleated Red Blood Cells 0 /100 WBC (0-0); Total Cells Counted 100
[2022-01-07] MEDS: SODIUM CHLORIDE 0.9% 1,000 ML IV SCH (18:47)
[2022-01-07] MEDS: THIAMINE 100 MG TAB PO SCH (18:48)
[2022-01-08] MEDS: GABAPENTIN 300 MG CAP PO SCH ×3 (00:35→15:02)
[2022-01-08] MEDS: SODIUM CHLORIDE 0.9% 1,000 ML IV SCH ×2 (00:49→12:14)
[2022-01-08] MEDS: LORazepam 2 MG/ML INJ IV PRN ×2 (05:34→12:11)
[2022-01-08 07:48] VITALS: RESP 19
[2022-01-08] MEDS: THIAMINE 100 MG TAB PO SCH ×2 (08:57→09:02)
[2022-01-08] MEDS ORDERED: VENLAFAXINE HCL ER 75 MG CAP PO SCH (09:00)
[2022-01-08] MEDS ORDERED: FOLIC ACID 1 MG TAB PO SCH (09:00)
[2022-01-08] MEDS ORDERED: RIVAROXABAN 20 MG TAB PO SCH (09:00)
[2022-01-08] MEDS ORDERED: MULTIVITAMINS, THERA 1 EACH TAB PO SCH (09:00)
[2022-01-08] MEDS ORDERED: ONDANSETRON 4 MG/2 ML VIAL IVP PRN (09:55)
--- NOTE | 2022-01-08 10:48 | P.DS ---
Providers Date of admission: 01/07/22 15:36 Expected date of discharge: 01/08/22 Attending physician: Chidi Madrigal MD Consults: 01/07/22 15:35 Consult Physician Routine Consulting Provider: Sameer Lal Consult Reason/Comments: Psychiatric Do you want consulting provider notified?: Yes Primary care physician: Constantine [place] Hospital Course: Discharge Diagnosis: Alcohol abuse/dependence, patient discharged home on naltrexone HCL. Patient was encouraged to go to inpatient drug and alcohol rehabilitation center ([facility]) but declined at this time. Patient encouraged to stop all use of alcohol. Depression, patient evaluated by psychiatrist clearing patient from eminent harm of self recommending safe for discharge and outpatient follow-up with [facility], also recommending continuation of Effexor and gabapentin and started patient on daily naltrexone HCL for alcohol use disorder. Hypertension History of DVT, Continue anticoagulant with Xarelto Hospital Course: Patient is a very pleasant 56-year-old female with a past medical history of alcohol abuse/dependence, depression, and hypertension. She presented to the emergency department on 01/07/22 with a chief complaint of alcohol intoxication and depression with thoughts of suicide. Patient reports that she has thought about harming herself but denies having a plan and denies history of suicidal ideations. Patient reports she is depressed because her family is disappointed in her because she relapsed and went back to drinking alcohol. Patient reports she was doing very well and trying to stop drinking but reports she has fell off the wagon and is drinking more than a fifth of alcohol daily. Patient reports she follows up outpatient with a psychiatrist with [facility]. Patient was monitored overnight and provided with IV fluid hydration, vitamin supplements, and benzodiazepines for alcohol withdrawal. Patient underwent evaluation by psychiatrist secondary to suicidal ideations without a plan. Psychiatry cleared patient from eminent harm of self and recommended continued outpatient follow-up with her [facility] psychiatrist. Psychiatry also recommending continuation of Effexor and gabapentin and started patient on daily naltrexone HCL for alcohol use disorder. Patient is medically stable and currently showing no signs of acute withdrawal including tremors or diaphoresis. Vital signs stable with heart rate 96, blood pressure 158/91, respiratory rate 16 and SpO2 of 95% on room air. Patient denies having any headache, lightheadedness, dizziness, chest pain, palpitations, shortness of breath, or experiencing any numbness/tingling/weakness in her extremities. Patient was encouraged to go to inpatient drug and alcohol rehabilitation center, [place], but declined. Patient educated and encouraged to stop all alcohol use. Patient also educated that use of naltrexone HCL cannot be combined with opioid use. Patient denies previous use of opioids and verbalized understanding, urine drug screen was negative for opioids. Patient provided with outpatient resources such as as well as [facility] for resources including food, clothing, toiletries, etc. Patient medically stable for discharge home at this time. Physical examination: Vital signs reviewed and stable. General: Nontoxic, no distress and appears stated age. Derm: Skin warm and dry, normal coloration for ethnicity. No diaphoresis. Head: Atraumatic, normocephalic and symmetric. Eyes: EOMs intact, no lid lag, and anicteric sclera Mouth: no lip lesions, mucus membranes moist Cardiovascular: regular rate and rhythm with normal S1S2, no murmur, positive posterior tibial pulses bilaterally, and cap refill < 2 seconds. Lungs: Respirations even, regular, and unlabored on room air. Lungs CTA bilaterally, no rhonchi, no rales, no wheezing, and no accessory muscle usage. Abdominal: soft, nontender to palpation, no guarding, no appreciable organomegaly Ext: ROM intact. No gross muscle atrophy, no edema, no contractures Neuro: Speech clear, face symmetrical and CN II-XII grossly intact with no noted focal neuro deficits noted. No tremors noted.. Psych: Alert and oriented to person, place, time, and situation. Appropriate and pleasant affect. A total of 39 minutes of time were spent preparing this complex discharge summary. Pt was discharged on 01/08/22 at 10:47 AM. Patient Condition at Discharge: Stable Plan - Discharge Summary Discharge Rx Participant: Yes New Discharge Prescriptions: New Folic Acid 1 mg PO DAILY tab Multivitamins, Thera [Multivitamin (formulary)] 1 each PO DAILY tab Naltrexone HCl [Revia] 50 mg PO DAILY 14 Days #14 tab Continue Rivaroxaban [Xarelto] 20 mg PO DAILY tab Venlafaxine HCl ER [Effexor XR] 225 mg PO DAILY 30 Days #90 cap Albuterol Sulfate [Proair Hfa] 2 puff INHALATION RT-Q6H PRN PRN Reason: Shortness Of Breath Naltrexone Microspheres [Vivitrol] 380 mg IM Q28D Thiamine [Vitamin B-1] 100 mg PO BID-W/MEALS #60 tab traZODone HCL [Desyrel] 200 mg PO HS PRN 30 Days #60 tab PRN Reason: Insomnia Gabapentin 300 mg PO TID Fluticasone Nasal [place] [Flonase Nasal [place]] 1 - 2 spray EA NOSTRIL BID PRN PRN Reason: Allergy Symptoms Discharge Medication List Rivaroxaban [Xarelto] 20 mg PO DAILY tab 07/02/20 [Rx] Thiamine [Vitamin B-1] 100 mg PO BID-W/MEALS #60 tab 09/09/21 [Rx] Venlafaxine HCl ER [Effexor XR] 225 mg PO DAILY 30 Days #90 cap 09/10/21 [Rx] traZODone HCL [Desyrel] 200 mg PO HS PRN 30 Days #60 tab 09/10/21 [Rx] Albuterol Sulfate [Proair Hfa] 2 puff INHALATION RT-Q6H PRN 11/14/21 [History] Fluticasone Nasal [place] [Flonase Nasal [place]] 1 - 2 spray EA NOSTRIL BID PRN 11/14/21 [History] Gabapentin 300 mg PO TID 11/14/21 [History] Naltrexone Microspheres [Vivitrol] 380 mg IM Q28D 11/14/21 [History] Folic Acid 1 mg PO DAILY tab 01/08/22 [Rx] Multivitamins, Thera [Multivitamin (formulary)] 1 each PO DAILY tab 01/08/22 [Rx] Naltrexone HCl [Revia] 50 mg PO DAILY 14 Days #14 tab 01/08/22 [Rx] Follow up Appointment(s)/Referral(s): Constantine Figueroa DO [Primary Care Provider] - 1-2 days Patient Instructions/Handouts: Abuse of Alcohol (DC) Activity/Diet/Wound Care/Special Instructions: Activity: As tolerated. Take breaks as needed. Diet: Heart healthy and carb consistent diet. Avoid salts, or foods with hidden salts such as canned or boxed foods and frozen dinners. Extra salt makes your heart work harder and traps the fluid in your body for longer. Special Instructions: Take all of your medications as directed and remember to keep all of your doctor's appointments and follow-up as needed. Thank you for allowing us to participate in your care, it was truly a pleasure having you for our patient!!! [facility]. [phone]--resources including food, clothing, toiletries, etc. I highly recommend you reconsidering going to an inpatient drug and alcohol reha bilitation program such as [facility]. You are being prescribed Neltrexone 50 mg daily x 14 days as recommended by psychiatry. You will need to follow up with your psychiatrist at [facility] for further prescriptions and monitoring while on this medication. I truly wish you the best of luck on your journey towards sobriety!!!! Discharge/Stand Alone Forms: AA Meetings [facility], Who Do I Call?, Outpatient Counseling Discharge Disposition: HOME SELF-CARE
[2022-01-08 13:57] VITALS: BP 157/101; PULSE 92; TEMP 98.8
[2022-01-08] MEDS ORDERED: NALTREXONE HCL 50 MG TAB PO STA (14:24)
--- NOTE | 2022-01-08 14:31 | P.CN ---
Psychiatric Consult - . Consult date: 01/08/22 Consult:: 01/08/22 14:30 IDENTIFYING DATA: This patient is a , unemployed, 56-year-old female significant history of alcohol use disorder and depression presents to the hospital on 01/07/2022 for alcohol withdrawal and depression. HISTORY OF PRESENT ILLNESS: The patient presented to the hospital on 01/07/2022 chief complaint of acute alcohol withdrawal and depression. While intoxicated, the patient was noted to endorse suicidal ideation. Psychiatry has been consulted for psychiatric evaluation. Upon evaluation at this provider, the patient reports that she has been having increased depression ever since she relapsed into heavy alcohol use a couple of weeks ago after remaining sober for months. She reports that she was proved to working at [employer], however she became ill and was let go from her job. She reports that she's been feeling increasingly depressed and isolated and therefore relapsed into heavy alcohol use. She reports that she has been drinking 12-15 beers per day on top of a half a fifth of vodka. She reports that this has been ongoing every day. Now that she is sober, the patient is denying any suicidal or homicidal ideation, intention, and/or plan. In regards to depressive symptoms, she does report decreased appetite, decreased motivation, and difficulty with sleep. She however denies any prior attempts at suicide and is currently expressing future orientation and desired to undergo treatment for her alcohol use disorder. The patient was previously managed with the Vivitrol injection however did not receive it last month. She wishes to be placed back on this medication. Currently the patient is not reporting any significant symptoms of michael. She reports no increased goal-directed activity, grandiosity, or mood lability. She denies any auditory or visualizations. She reports no paranoia or other delusions. The patient is currently open with [facility]. PAST PSYCHIATRIC HISTORY: Patient has a history of depression and alcohol use disorder. She is currently on a regimen of Effexor 225 mg by mouth daily for depression/anxiety, gabapentin, and was receiving the Vivitrol injection. The patient reports multiple psychiatric hospitalizations with the last time being years ago. She is currently open with [facility]. Patient denies any history of suicide attempts in the past. PAST MEDICAL HISTORY: Past Medical History: Deep Vein Thrombosis (DVT), Hypertension Additional Past Medical History / Comment(s): concussion History of Any Multi-Drug Resistant Organisms: None Reported Past Surgical History: No Surgical Hx Reported Additional Past Surgical History / Comment(s): jaw surgery Past Psychological History: Anxiety, Depression Smoking Status: Former smoker Past Alcohol Use History: Abuse, Daily, Heavy Past Drug Use History: None Reported ALLERGIES: Bacitracin CHEMICAL DEPENDENCY HISTORY: The patient's drug of choice is alcohol. She reports that she has been drinking 15 beers per day on top of half a fifth of liquor per day. She was sober for 3-6 months prior to relapsing a few weeks ago. She denies any tobacco, marijuana, or illicit drug use. FAMILY PSYCHIATRIC/SUBSTANCE USE HISTORY: Reported history of alcohol use disorder in family SOCIAL HISTORY: Patient is currently . She has no children. She currently lives by herself however states that her best friend lives in the unit above her. She has previously attended 12-step programs but currently has no sponsor. She is currently unemployed. She has a beta fish. MENTAL STATUS EXAM: General Appearance: Patient appears to be stated age is alert, pleasant, and cooperative. Patient appears to have fair hygiene and grooming wearing hospital gown with fair eye contact. Behavior: Patient is calmly lying in bed without any agitated behavior. Speech: Patient's speech is fluent and nonpressured. Mood/Affect: Patient reports their mood is "depressed", affect is euthymic with appropriate range. Suicidality/Homicidality: Patient denies any suicidal or homicidal ideation, intention, and/or plan. Perceptions: Patient denies any visual hallucinations and denies any auditory hallucinations Though content/process: There is no evidence of any delusional thought content and thought process is linear and goal-directed. Memory and concentration: AOX3, grossly intact for the purposes of this session. Can spell "WORLD" backwards Judgment and insight: Good Vital Signs Temp 98.8 F 01/08/22 13:57 Pulse 92 01/08/22 13:57 Resp 19 01/08/22 13:57 BP 157/101 01/08/22 13:57 Pulse Ox 93 L 01/08/22 13:57 Intake & Output 01/07/22 01/08/22 01/08/22 18:59 06:59 18:59 Weight 96.162 kg 96.162 kg Other: # Voids 1 1 Laboratory Results - Last 24 Hours 01/07/22 01/07/2222 15:57 16:30 16:30 WBC 3.5 L RBC 3.84 Hgb 12.1 Hct 37.4 MCV 97.2 MCH 31.6 MCHC 32.5 RDW 14.3 Plt Count 183 MPV 7.8 Neutrophils % (Manual) 49 Lymphocytes % (Manual) 44 Monocytes % (Manual) 6 Eosinophils % (Manual) 1 Neutrophils # (Manual) 1.72 Lymphocytes # (Manual) 1.54 Monocytes # (Manual) 0.21 Eosinophils # (Manual) 0.04 Nucleated RBCs 0 Manual Slide Review Performed RBC Morphology Normal Sodium 141 Potassium 4.7 Chloride 105 Carbon Dioxide 31 H Anion Gap 5 BUN 10 Creatinine 0.59 Est GFR (CKD-EPI)AfAm >90 Est GFR (CKD-EPI)NonAf >90 Glucose 106 H Calcium 8.4 Magnesium 2.2 Total Bilirubin 0.4 AST 28 ALT 14 Alkaline Phosphatase 71 Total Protein 6.9 Albumin 4.2 Urine Opiates Screen Not Detected Ur Oxycodone Screen Not Detected Urine Methadone Screen Not Detected Ur Propoxyphene Screen Not Detected Ur Barbiturates Screen Not Detected U Tricyclic Antidepress Not Detected Ur Phencyclidine Scrn Not Detected Ur Amphetamines Screen Not Detected U Methamphetamines Scrn Not Detected U Benzodiazepines Scrn Not Detected Urine Cocaine Screen Not Detected U Marijuana (THC) Screen Not Detected IMPRESSIONS: Alcohol withdrawal on [facility] Alcohol use disorder Major depressive disorder PLAN: -Continue your medical management. Treat Alcohol withdrawal. [facility] protocol. -At this time patient DOES NOT meet criteria for inpatient psychiatric admission. Currently, the patient is not endorsing any imminent risk of harm to self or others. She is not endorsing any suicidal or homicidal ideation, intent or plan. She also reports no prior times at suicide. Protective factors include future orientation, lack of previous suicide attempt, and continued outpatient treatment. Risk factors include her ongoing alcohol use disorder. We will attempt to address the ongoing risk factor by addressing her alcohol use disorder with referrals to outpatient substance abuse therapy and the reinitiation of ReVia. -Would recommend the following medication changes/additions: We will continue Effexor to 25 mg by mouth daily for depression, gabapentin 300 mg by mouth 3 times a day for off label use for anxiety and for alcohol use disorder, and we will start ReVia 50 mg by mouth daily for alcohol use disorder -Recommend outpatient follow-up. -Discontinue one-to-one sitter. Patient does not present with imminent risk of harm to self. -Psychiatry will sign off at this point, please contact with any questions. 01/08/22 14:30
[2022-01-09] MEDS ORDERED: NALTREXONE HCL 50 MG TAB PO SCH (09:00)
== END 2022-01-08 16:33 | disposition home or self-care (01) ==
LOC: EC 14:38 → 4SSUR 15:36
PROVIDERS: ADMIT Internal Medicine; ATTEND Internal Medicine
DX: F10.239 Alcohol dependence with withdrawal, unspecified (principal); F10.229 Alcohol dependence with intoxication, unspecified; R45.851 Suicidal ideations; F32.A Depression, unspecified; F41.9 Anxiety disorder, unspecified; I10 Essential (primary) hypertension; Z71.41 Alcohol abuse counseling and surveillance of alcoholic; Z79.01 Long term (current) use of anticoagulants; Z79.899 Other long term (current) drug therapy; Z88.1 Allergy status to other antibiotic agents; Z86.718 Personal history of other venous thrombosis and embolism; Z87.891 Personal history of nicotine dependence; Z71.3 Dietary counseling and surveillance
CPT/HCPCS: 99285; 96376; 96361; 96375; 82075; 96374; 80053; 83735; 85025; 80306; G0378 ×2; J2060 ×2; J2405

== ENCOUNTER 2022-01-08 23:31 | Emergency (ER) | payer OTHER ==
[2022-01-08 23:39] VITALS: BP 141/101; PULSE 86; RESP 18; TEMP 97.9
--- NOTE | 2022-01-09 00:05 | ED ---
Alcohol HPI - General Chief Complaint: Psychiatric Symptoms Stated Complaint: ETOH Time Seen by Provider: 01/08/22 23:36 Source: patient, EMS, RN notes reviewed, old records reviewed Mode of arrival: EMS Limitations: no limitations - History of Present Illness Initial Comments: This is a 56-year-old female to the emergency department for evaluation. Rogers martines states he wants to stop drinking alcohol. Patient was just in the ER and hospitalized yesterday for similar complaints of alcoholism and depression. Patient does not feel suicidal currently. 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) Previous Visits for Alcohol Intoxication?: Yes Recent Trauma: No Associated Symptoms: denies other symptoms Treatments Prior to Arrival: none Chronic Alcohol Use: Yes - Related Data Home Medications Medication Instructions Recorded Confirmed Albuterol Sulfate [Proair Hfa] 2 puff INHALATION RT-Q6H PRN 11/14/21 01/07/22 Fluticasone Nasal [place] [Flonase 1 - 2 spray EA NOSTRIL BID PRN 11/14/2101/07 Nasal [place]] Gabapentin 300 mg PO TID 11/14/21 01/07/22 Naltrexone Microspheres [Vivitrol] 380 mg IM Q28D 11/14/21 01/07/22 Previous Rx's Medication Instructions Recorded Rivaroxaban [Xarelto] 20 mg PO DAILY tab 07/02/20 Thiamine [Vitamin B-1] 100 mg PO BID-W/MEALS #60 tab 09/09/21 Venlafaxine HCl ER [Effexor XR] 225 mg PO DAILY 30 Days #90 cap 09/10/21 traZODone HCL [Desyrel] 200 mg PO HS PRN 30 Days #60 tab 09/10/21 Folic Acid 1 mg PO DAILY tab 01/08/22 Multivitamins, Thera [Multivitamin 1 each PO DAILY tab 01/08/22 (formulary)] Naltrexone HCl [Revia] 50 mg PO DAILY 14 Days #14 tab 01/08/22 Allergies Allergy/AdvReac Type Severity Reaction Status Date / Time bacitracin Allergy Rash/Hives Verified 01/07/22 15:51 Review of Systems ROS Statement: Those systems with pertinent positive or pertinent negative responses have been documented in the HPI. ROS Other: All systems not noted in ROS Statement are negative. Past Medical History Past Medical History: Deep Vein Thrombosis (DVT), Hypertension Additional Past Medical History / Comment(s): concussion History of Any Multi-Drug Resistant Organisms: None Reported Past Surgical History: No Surgical Hx Reported Additional Past Surgical History / Comment(s): jaw surgery Past Psychological History: Anxiety, Depression Smoking Status: Former smoker Past Alcohol Use History: Abuse, Daily, Heavy Past Drug Use History: None Reported - Past Family History Father Additional Family Medical History / Comment(s): Spleen CA Mother Additional Family Medical History / Comment(s): empysema General Exam General appearance: alert, in no apparent distress, appears intoxicated Head exam: Present: atraumatic, normocephalic, normal inspection Eye exam: Present: normal appearance, PERRL, EOMI. Absent: scleral icterus, conjunctival injection, periorbital swelling ENT exam: Present: normal exam, mucous membranes moist Neck exam: Present: normal inspection. Absent: tenderness, meningismus, lymphadenopathy Respiratory exam: Present: normal lung sounds bilaterally. Absent: respiratory distress, wheezes, rales, rhonchi, stridor Cardiovascular Exam: Present: regular rate, normal rhythm, normal heart sounds. Absent: systolic murmur, diastolic murmur, rubs, gallop, clicks GI/Abdominal exam: Present: soft, normal bowel sounds. Absent: distended, tenderness, guarding, rebound, rigid Extremities exam: Present: normal inspection, full ROM, normal capillary refill. Absent: tenderness, pedal edema, joint swelling, calf tenderness Back exam: Present: normal inspection Neurological exam: Present: alert, oriented X3, CN II-XII intact Psychiatric exam: Present: normal affect, normal mood Skin exam: Present: warm, dry, intact, normal color. Absent: rash Course Vital Signs 01/08/22 23:33 Temperature 97.9 F Pulse Rate 86 Respiratory 18 Rate Blood Pressure 141/101 O2 Sat by Pulse 94 L Oximetry - Reevaluation(s) Reevaluation #1: 01/09/22 00:04 Medical record is reviewed Disposition Clinical Impression: Alcohol use disorder, Alcohol intoxication Disposition: HOME SELF-CARE Condition: Fair Instructions (If sedation given, give patient instructions): Alcohol Intoxication (ED) Is patient prescribed a controlled substance at d/c from ED?: No Referrals: Constantine Figueroa DO [Primary Care Provider] - 1-2 days
== END 2022-01-09 05:54 | disposition home or self-care (01) ==
LOC: EC 23:31
DX: F10.129 Alcohol abuse with intoxication, unspecified (principal); I10 Essential (primary) hypertension; F41.9 Anxiety disorder, unspecified; F32.A Depression, unspecified; Z86.718 Personal history of other venous thrombosis and embolism; Z87.891 Personal history of nicotine dependence; Y90.9 Presence of alcohol in blood, level not specified
CPT/HCPCS: 82075; 99284

== ENCOUNTER 2022-01-13 18:48 | Inpatient (IN) | payer MEDICAID, OTHER ==
--- NOTE | 2022-01-13 21:35 | ED ---
Psych HPI - General Chief Complaint: Psychiatric Symptoms Stated Complaint: Suicidal Time Seen by Provider: 01/13/22 20:59 Source: police, EMS Mode of arrival: wheelchair - History of Present Illness Initial Comments: This 56-year-old female presents with a complaint of problems with alcohol as well as depression. She states that she's been drinking 10 beers per day as well as 1/5 of alcohol per day. She has been very depressed and has had thoughts of suicide. She denies any current medical issues. She has not been taking her medications as she has been too intoxicated. She does have a long history of alcohol abuse and has been through multiple rehabilitation programs in the past. She states that she feels as though she needs to be admitted for psychiatric treatment. She does admit to having some mild to moderate withdrawal symptoms in the past when she is sober. She denies any other complaints or modifying factors. - Related Data Home Medications Medication Instructions Recorded Confirmed Albuterol Sulfate [Proair Hfa] 2 puff INHALATION RT-Q6H PRN 11/14/21 01/13/22 Fluticasone Nasal [place] [Flonase 1 - 2 spray EA NOSTRIL BID PRN 11/14/21 01/13/22 Nasal [place]] Gabapentin 300 mg PO TID 11/14/21 01/13/22 Naltrexone Microspheres [Vivitrol] 380 mg IM Q28D 11/14/21 01/13/22 Multivitamins, Thera [Multivitamin 1 tab PO DAILY 01/13/22 01/13/22 (formulary)] Sodium Chloride [Lucas] 2 spr EA NOSTRIL QID PRN 01/13/22 01/13/22 Previous Rx's Medication Instructions Recorded Rivaroxaban [Xarelto] 20 mg PO DAILY tab 07/02/20 Thiamine [Vitamin B-1] 100 mg PO BID-W/MEALS #60 tab 09/09/21 Venlafaxine HCl ER [Effexor XR] 225 mg PO DAILY 30 Days #90 cap 09/10/21 traZODone HCL [Desyrel] 200 mg PO HS PRN 30 Days #60 tab 09/10/21 Folic Acid 1 mg PO DAILY tab 01/08/22 Naltrexone HCl [Revia] 50 mg PO DAILY 14 Days #14 tab 01/08/22 Allergies Allergy/AdvReac Type Severity Reaction Status Date / Time bacitracin Allergy Rash/Hives Verified 01/13/22 22:59 Review of Systems ROS Statement: Those systems with pertinent positive or pertinent negative responses have been documented in the HPI. ROS Other: All systems not noted in ROS Statement are negative. Past Medical History Past Medical History: Deep Vein Thrombosis (DVT), Hypertension Additional Past Medical History / Comment(s): concussion History of Any Multi-Drug Resistant Organisms: None Reported Past Surgical History: No Surgical Hx Reported Additional Past Surgical History / Comment(s): jaw surgery Past Psychological History: Anxiety, Depression Smoking Status: Former smoker Past Alcohol Use History: Abuse, Daily, Heavy Past Drug Use History: None Reported - Past Family History Father Additional Family Medical History / Comment(s): Spleen CA Mother Additional Family Medical History / Comment(s): empysema General Exam - General Exam Comments Initial Comments: GENERAL: The patient is well nourished and well hydrated. VITAL SIGNS: Heart rate, blood pressure, respiratory rate reviewed as recorded in nurse's notes. EYES: Pupils are round and reactive. Extraocular movements are intact. No conjunctival / lid redness or swelling. ENT: No external evidence of injury, swelling, or ecchymosis. Airway is patent. Throat is clear. NECK: Nontender. No swelling or evidence of injury. No subcutaneous emphysema. Trachea is midline. No thyroid mass. HEART: Regular rate and rhythm. Good peripheral pulses. LUNGS/CHEST: Breath sounds clear and equal bilaterally. No rales, rhonchi, or wheezes. No ecchymosis, subcutaneous emphysema, or tenderness. ABDOMEN: Abdomen soft without tenderness. No palpable masses or organomegaly. No peritoneal signs. No abdominal wall swelling or ecchymosis. EXTREMITIES: No extremity tenderness. Normal muscle tone and function. No thoracolumbar tenderness. NEUROLOGIC: Sensation is grossly intact. Cranial nerve exam reveals face is symmetrical, tongue is midline, speech is clear. SKIN: No abrasions or ecchymosis is noted. No induration or masses noted. PSYCHIATRIC: Alert and oriented. Appropriate behavior and judgment. Flat affect noted. Limitations: no limitations Course Vital Signs 01/13/22 01/14/22 01/14/22 19:45 01:00 06:55 Temperature 98.3 F Pulse Rate 72 98 89 Pulse Rate [ Right Sitting] Respiratory 18 16 16 Rate Blood Pressure 111/75 127/88 173/82 Blood Pressure [Left Arm Sitting] O2 Sat by Pulse 93 L 98 98 Oximetry 01/14/22 10:55 Temperature 97.0 F L Pulse Rate Pulse Rate [ 97 Right Sitting] Respiratory 18 Rate Blood Pressure Blood Pressure 172/100 [Left Arm Sitting] O2 Sat by Pulse 98 Oximetry Medical Decision Making - Medical Decision Making The patient was seen and examined. The breath alcohol test is elevated at 0.222. Mental health consult is initiated due to patient's severe depression. We will await sobriety further evaluation. The patient is still awaiting sobriety and then psych/EPS evaluation. Case will be passed off to Dr. Arreola. No complications noted thus far during ER course. - Lab Data Lab Results 01/13/22 01/14/22 Range/Units 21:46 06:54 Urine Opiates Screen Not Detected (NotDetected) Ur Oxycodone Screen Not Detected (NotDetected) Urine Methadone Screen Not Detected (NotDetected) Ur Propoxyphene Screen Not Detected (NotDetected) Ur Barbiturates Screen Not Detected (NotDetected) U Tricyclic Antidepress Not Detected (NotDetected) Ur Phencyclidine Scrn Not Detected (NotDetected) Ur Amphetamines Screen Not Detected (NotDetected) U Methamphetamines Scrn Not Detected (NotDetected) U Benzodiazepines Scrn Not Detected (NotDetected) Urine Cocaine Screen Not Detected (NotDetected) U Marijuana (THC) Screen Not Detected (NotDetected) Coronavirus (PCR) Not Detected (Not Detectd) Disposition Clinical Impression: Suicidal ideation, Depression, major, Alcohol intoxication, Alcohol use disorder, severe, dependence Disposition: ADMITTED IP TO THIS HOSP Condition: Fair Is patient prescribed a controlled substance at d/c from ED?: No Time of Disposition: 03:00 Decision Date: 01/14/22 Decision Time: 03:00
[2022-01-13 22:33] LABS: Amphetamine Screen,Urine Not Detected (NotDetected); Barbiturate Screen,Urine Not Detected (NotDetected); Benzodiazepines Screen,Urine Not Detected (NotDetected); Cocaine Screen,Urine Not Detected (NotDetected); Methadone Screen, Urine Not Detected (NotDetected); Opiate Screen,Urine Not Detected (NotDetected); Oxycodone Screen, Urine Not Detected (NotDetected); Phencyclidine Screen,Urine Not Detected (NotDetected); Tricyclic Antidepressant,Urine Not Detected (NotDetected); Urn Cannabinoid Scrn Not Detected (NotDetected)
[2022-01-14] MEDS ORDERED: ONDANSETRON ODT 4 MG TAB PO STA (05:44)
[2022-01-14] MEDS ORDERED: LORazepam 1 MG TAB PO STA (05:44)
[2022-01-14] MEDS ORDERED: MAGNESIUM HYDROXIDE 2,400 MG/10 ML CUP PO PRN (10:37)
[2022-01-14] MEDS ORDERED: ACETAMINOPHEN TAB 325 MG TAB PO PRN (10:37)
[2022-01-14] MEDS ORDERED: LORazepam 1 MG TAB PO PRN ×2 (10:37)
[2022-01-14] MEDS ORDERED: MAG HYDROX/AL HYDROX/SIMETH 30 ML CUP PO PRN (10:37)
[2022-01-14] MEDS ORDERED: HALOPERIDOL LACTATE 5 MG/ML 1 ML VIAL IM PRN (10:41)
[2022-01-14] MEDS ORDERED: haloperidoL 5 MG TAB PO PRN (10:42)
[2022-01-14] MEDS: MULTIVITAMINS, THERA 1 EACH TAB PO SCH (11:10)
[2022-01-14] MEDS: FOLIC ACID 1 MG TAB PO SCH (11:10)
[2022-01-14] MEDS: THIAMINE 100 MG TAB PO SCH (11:10)
[2022-01-14] MEDS: GABAPENTIN 300 MG CAP PO SCH ×3 (11:10→21:21)
[2022-01-14] MEDS: chlordiazePOXIDE 25 MG CAP PO SCH ×3 (11:10→21:21)
[2022-01-14] MEDS: RIVAROXABAN 20 MG TAB PO SCH (11:11)
[2022-01-14] MEDS: NICOTINE 14MG/24HR PATCH TRANSDERM SCH (11:15)
[2022-01-14] MEDS ORDERED: ONDANSETRON 4 MG TAB PO PRN (11:26)
[2022-01-14] MEDS ORDERED: INFLUENZA VACC (6 MOS-64 YRS) 60 MCG/0.5 ML SYRINGE IM ONE (12:21)
[2022-01-14] MEDS ORDERED: PNEUMOCOCCAL VACC-PNEUMOVAX 23 25 MCG/0.5 ML VIAL IM ONE (12:21)
--- NOTE | 2022-01-14 14:00 | P.HP ---
Psychiatric H&P - . H&P Date: 01/14/22 History & Physical: Allergies Allergy/AdvReac Type Severity Reaction Status Date / Time bacitracin Allergy Rash/Hives Verified 01/13/22 22:59 Vital Signs Temp 97.0 F L 01/14/22 10:55 Pulse 97 01/14/22 10:55 Resp 18 01/14/22 10:55 BP 172/100 01/14/22 10:55 Pulse Ox 98 01/14/22 10:55 Intake & Output 01/13/22 01/14/22 01/14/22 18:59 06:59 18:59 Weight 99.79 kg 99 kg Laboratory Last Values Urine Opiates Screen Not Detected (NotDetected) 01/13/22 21:46 Ur Oxycodone Screen Not Detected (NotDetected) 01/13/22 21:46 Urine Methadone Screen Not Detected (NotDetected) 01/13/22 21:46 Ur Propoxyphene Screen Not Detected (NotDetected) 01/13/22 21:46 Ur Barbiturates Screen Not Detected (NotDetected) 01/13/22 21:46 U Tricyclic Antidepress Not Detected (NotDetected) 01/13/22 21:46 Ur Phencyclidine Scrn Not Detected (NotDetected) 01/13/22 21:46 Ur Amphetamines Screen Not Detected (NotDetected) 01/13/22 21:46 U Methamphetamines Scrn Not Detected (NotDetected) 01/13/22 21:46 U Benzodiazepines Scrn Not Detected (NotDetected) 01/13/22 21:46 Urine Cocaine Screen Not Detected (NotDetected) 01/13/22 21:46 U Marijuana (THC) Screen Not Detected (NotDetected) 01/13/22 21:46 Coronavirus (PCR) Not Detected (Not Detectd) 01/14/22 06:54 01/14/22 13:59 IDENTIFYING DATA: Patient is a , unemployed, 56-year-old female significant history of alcohol use disorder and depression who presents to the hospital on 01/14/2022 for worsening depression in the context of heavy alcohol use. HPI: Patient presented to the hospital on 01/14/2022, presenting to the emergency department voluntarily for suicidal ideation with a plan to overdose on her medications. The patient was noted to have a BAT of 0.222 and when re- evaluated when sober continued to endorse worsening depression and suicidal ideation. She signed herself voluntarily on the psychiatric unit. Upon admission on the psychiatric unit, the patient does report that she's been feeling increasingly depressed and suicidal. She was last evaluated by this provider on 01/08/2022 on the medical floor after she was being treated for acute alcohol withdrawal. Her history remains grossly unchanged from then. The patient continues to report that she's been drinking heavily, approximates 12-15 beers on top of a fifth of vodka per day. She states that she continues to drink heavily after losing her job at [employer]. She states that lately she has been having thoughts of wanting to overdose on her trazodone. The patient has not received her Vivitrol injection and reports that she was stable on that medication. In regards other depressive symptoms, the patient does report hopelessness, helplessness, difficulty with sleep, decreased motivation, and decreased appetite. She is denying any overt manic or psychotic symptoms. She also she is undergoing alcohol withdrawal, she denies any auditory or visual hallucinations. She reports no history of delirium tremens. PAST PSYCHIATRIC HISTORY: Patient states that she has a history of depression and alcohol use disorder. She is currently on a regimen of Effexor, gabapentin, and was previously on Vivitrol. The patient has had at least 3 prior psychiatric hospitalizations with the last time being many years ago. The patient is currently open with [facility] in outpatient setting. Patient denies any history of suicide attempts in the past. PMH: Past Medical History: Deep Vein Thrombosis (DVT), Hypertension Additional Past Medical History / Comment(s): concussion History of Any Multi-Drug Resistant Organisms: None Reported Past Surgical History: No Surgical Hx Reported Additional Past Surgical History / Comment(s): jaw surgery Past Psychological History: Anxiety, Depression Smoking Status: Former smoker Past Alcohol Use History: Abuse, Daily, Heavy Past Drug Use History: None Reported ALLERGIES: Bacitracin CHEMICAL DEPENDENCY HISTORY: The patient's drug of choice is alcohol. She has been drinking 15 beers a day and top of a fifth of liquor per day. She was sober for a few months prior to relapsing a month ago. She denies any tobacco, marijuana, or illicit drug use. FAMILY PSYCHIATRIC/SUBSTANCE USE HISTORY: Reported history of alcohol use disorder in her family. SOCIAL HISTORY: Patient is currently . She has no children. She currently lives by herself however states that her best friend lives in the unit above her. She has previously attended 12-step programs but currently has no sponsor. She is currently unemployed. She has a beta fish. MENTAL STATUS EXAM: General Appearance: Patient appears to be stated age is alert, directable, and attempts to cooperate. Patient appears to have fair hygiene and grooming. Behavior: Patient is seated without any agitated behavior. Eye contact is appropriate. Speech: Patient's speech is fluent and nonpressured. Mood/Affect: Patient reports their mood is depressed, affect is congruent and constricted. Suicidality/Homicidality: Patient endorses suicidal ideation. Denies any homicidal ideation. Perceptions: Patient denies any visual hallucinations and denies any auditory hallucinations Though content/process: There is no evidence of any delusional thought content and thought process is linear and goal-directed. Memory and concentration: AOX3, grossly intact for the purposes of this session. Can spell "WORLD" backwards Judgment and insight: Fair STRENGTHS/WEAKNESSES: Strength is that the patient is resilient. Weakness is that patient engages in heavy alcohol use. INTELLECT: average IMPRESSIONS: Major Depressive Disorder, recurrent, severe Alcohol Use Disorder PLAN: -Patient is admitted under voluntary status to [facility] for stabilization of psychiatric symptoms and safety. A second certification was completed and along with petition will be filed for court. -Medications : Will start patient on Doxepin 25 mg at bedtime for depression/anxiety/insomnia Trazodone 100 mg at bedtime for insomnia. -Ativan and Haldol PRN for agitation/aggression -Started thiamine, MVM for etoh use -[facility] protocol with Ativan PRN for ETOH withdrawal -Patient was counselled on substance abuse and desired to cut back on use -Patient was informed of the risks, benefits and side effects of the medication and patient verbally consented to taking the medications. Patient signed med consent form and was placed in chart. -Internal Medicine consult to perform medical evaluation and physical. -SW on board for discharge planning. Encourage patient to participate in groups to work on coping skills. 01/14/22 14:00
[2022-01-14] MEDS ORDERED: FLUTICASONE 50MCG/SPRAY NASAL 16GM EA NOSTRIL PRN (15:31)
[2022-01-14] MEDS ORDERED: ALBUTEROL INHALER 60 PUFF/8 GM INHALER (MHU) INHALATION PRN (15:31)
[2022-01-14] MEDS ORDERED: SODIUM CHLORIDE 0.65% NASAL SPRAY 44 ML BTL INTRANASAL PRN (15:31)
[2022-01-14] MEDS: CEPHALEXIN 500 MG CAP PO SCH ×2 (16:01→21:21)
[2022-01-14] MEDS: MUPIROCIN 2% OINT 22 GM TUBE TOPICAL SCH ×2 (16:02→21:23)
--- NOTE | 2022-01-14 16:51 | US ---
EXAMINATION TYPE: US venous doppler duplex LE BI DATE OF EXAM: 01/14/2022 4:45 PM COMPARISON: US 2021 CLINICAL HISTORY: dvt. SIDE PERFORMED: Bilateral TECHNIQUE: The lower extremity deep venous system is examined utilizing real time linear array sonog swapna with graded compression, doppler sonography and color-flow sonography. VESSELS IMAGED: Common Femoral Vein Deep Femoral Vein Greater Saphenous Vein * Femoral Vein Popliteal Vein Small Saphenous Vein * Proximal Calf Veins (* superficial vessels) Right Leg: Appears negative for DVT Left Leg: Positive for DVT left popliteal vein, appears chronic, thready flow with partial compressi on IMPRESSION: Findings compatible with DVT left lower extremity as noted above. No evidence for DVT rig ht lower extremity.
--- NOTE | 2022-01-14 19:40 | CONS ---
CONSULTATION REASON FOR CONSULTATION: Advice regarding DVT and other multiple medical issues, requested by Psychiatry. HISTORY OF PRESENT ILLNESS: This 56-year-old woman with a past medical history of DVT and hypertension, being followed by Dr. Constantine Figueroa in the outpatient setting, was admitted for psychiatric evaluation. The patient was apparently shaking from alcohol withdrawal. Patient was also complaining of bilateral leg swelling, left more than the right, as well as left leg cellulitis. The patient had an ultrasound of the left leg two months ago which showed a popliteal vein DVT. There is no history of any fever, rigor or chills. PAST MEDICAL HISTORY: DVT, hypertension, concussion. HOME MEDICATIONS: Reviewed. They include trazodone and Effexor XR. Doses and other medications are reviewed. ALLERGIES: TRACIN. FAMILY HISTORY: Spleen carcinoma. SOCIAL HISTORY: History of alcohol. Previous history of smoking. REVIEW OF SYSTEMS: Fourteen-point review of systems negative except as mentioned earlier. PHYSICAL EXAMINATION: Pulse is 98, blood pressure 127/88, respirations 16. HEENT: Normal. NECK: No jugular venous distention. CARDIOVASCULAR: S1, S2 muffled. RESPIRATION: Breath sounds diminished at the bases. No rhonchi. No crackles. ABDOMEN: Soft, obese. LEGS: Bilateral leg edema, left more than the right. Left leg calf lateral part cellulitis also present. NERVOUS SYSTEM: Higher functions as mentioned earlier. Diffuse tremors. No focal motor or neurological deficit. Cranial nerves 2 through 12 grossly intact. SKIN: As mentioned earlier. JOINTS: No active deforming arthropathy. LABS: Reviewed. ASSESSMENT: 1. Bilateral leg swelling, left more than the right, with left leg cellulitis. 2. ETOH withdrawal. 3. History of left popliteal deep vein thrombosis. 4. On Xarelto. 5. Hypertension. 6. History of concussion. 7. History of anxiety, depression. RECOMMENDATIONS AND DISCUSSION: In this 56-year-old woman who presented with multiple complex medical issues, at this time I recommend to continue the current medications. Resume the home medications, including anticoagulation. I would also recommend repeat ultrasound of the legs to document non-progression of disease, especially the popliteal vein involved on the left side. Otherwise, I recommend a short complete course of antibiotics and local treatment for the cellulitis. Other than that, I would also recommend outpatient followup. The patient also appears to have varicosities of the left leg, also to be followed up in the outpatient setting. We will follow the patient closely with you. Thank you for letting us participate in the care of this patient. MMBLACK / NALINI: [id number] / VALERIE
[2022-01-14] MEDS ORDERED: DOXEPIN 25 MG CAP PO SCH (21:00)
[2022-01-15] MEDS: THIAMINE 100 MG TAB PO SCH (08:08)
[2022-01-15] MEDS: FOLIC ACID 1 MG TAB PO SCH (08:08)
[2022-01-15] MEDS: GABAPENTIN 300 MG CAP PO SCH ×3 (08:08→21:06)
[2022-01-15] MEDS: CEPHALEXIN 500 MG CAP PO SCH ×3 (08:08→21:07)
[2022-01-15] MEDS: chlordiazePOXIDE 25 MG CAP PO SCH ×2 (08:08→21:05)
[2022-01-15] MEDS: MULTIVITAMINS, THERA 1 EACH TAB PO SCH (08:08)
[2022-01-15] MEDS: NICOTINE 14MG/24HR PATCH TRANSDERM SCH (08:09)
[2022-01-15] MEDS: MUPIROCIN 2% OINT 22 GM TUBE TOPICAL SCH ×3 (08:09→21:09)
[2022-01-15] MEDS: RIVAROXABAN 20 MG TAB PO SCH (08:15)
[2022-01-15 08:27] LABS: Basophils % (A) 0 %; Eosinophils # (A) 0.1 k/uL (0-0.7); Eosinophils % (A) 2 %; HGB 12.7 gm/dL (11.4-16.0); Hypochromasia Slight; Lymphocytes # (A) 0.6 k/uL (1.0-4.8); Lymphocytes % (A) 15 %; MCHC 30.2 g/dL (31.0-37.0); MCV 99.2 fL (80.0-100.0); Mean Platelet Volume 7.8; Monocytes # (A) 0.2 k/uL (0-1.0); Monocytes % (A) 5 %; Neutrophils # (A) 2.8 k/uL (1.3-7.7); Neutrophils % (A) 77 %; Platelet Count 137 k/uL (150-450); RBC 4.23 m/uL (3.80-5.40); RDW 13.4 % (11.5-15.5); WBC 3.7 k/uL (3.8-10.6)
[2022-01-15 08:40] LABS: ALT 14 U/L (4-34); AST 27 U/L (14-36); African American GFR (CKD) >90 (>60 ml/min/1.73 sqM); Albumin 4.1 g/dL (3.5-5.0); Alkaline Phosphatase 61 U/L (38-126); Anion Gap 6 mmol/L; Blood Urea Nitrogen 7 mg/dL (7-17); Calcium 9.4 mg/dL (8.4-10.2); Carbon Dioxide 33 mmol/L (22-30); Chloride 100 mmol/L (98-107); Glucose 97 mg/dL (74-99); Non-African American GFR(CKD) >90 (>60 ml/min/1.73 sqM); Potassium 4.1 mmol/L (3.5-5.1); Sodium 139 mmol/L (137-145); Total Bilirubin 1.5 mg/dL (0.2-1.3); Total Protein 6.9 g/dL (6.3-8.2)
--- NOTE | 2022-01-15 11:48 | P.PN ---
Progress Note - Text Progress Note Date: 01/15/22 Interval History: Patient was seen wandering the hallways and was directable and agreeable to speak with underwriter in the office. The patient reports she continues to feel sad and guilty. She is tearful today. The patient expresses she feels excessive guilt after relapsing into alcohol use. Despite this the patient is future and goal-oriented and wishes to pursue finding a job as she finds work to be a distraction from her boredom. She reports drinking when bored. She is otherwise not reporting any suicidal or homicidal ideation, intention, and/or plan. She reports no auditory or visual hallucinations. She denies any paranoia or other delusions. She does report some unsteadiness in her gait but otherwise reports no withdrawal symptoms. Patient has been adherent with her medication and denies any side effects. Mental Status Exam: General Appearance: Patient appears to be stated age is alert, directable, and cooperative. Behavior: Patient is calmly seated without any agitated behavior. Speech: Patient's speech is fluent and nonpressured. Mood/Affect: Mood is "sad and anxious," affect is tearful. Suicidality/Homicidality: Patient denies having any suicidal or homicidal ideation intent or plan. Perceptions: Patient denies any visual hallucinations and denies any auditory hallucinations Though content/process: There is no evidence of any delusional thought content and thought process is linear and goal-directed. Memory and concentration: AOX3, grossly intact for the purposes of this session Judgment and insight: Improving mildly Vital Signs Temp 97.7 F 01/15/22 06:41 Pulse 116 H 01/15/22 08:08 Resp 18 01/15/22 06:41 BP 112/89 01/15/22 08:08 Pulse Ox 98 01/14/22 10:55 Intake & Output 01/14/22 01/15/22 01/15/22 18:59 06:59 18:59 Weight 99 kg Laboratory Results - Last 24 Hours 01/15/22 01/15/22 07:18 07:18 WBC 3.7 L RBC 4.23 Hgb 12.7 Hct 42.0 MCV 99.2 MCH 30.0 MCHC 30.2 L RDW 13.4 Plt Count 137 L MPV 7.8 Neutrophils % 77 Lymphocytes % 15 Monocytes % 5 Eosinophils % 2 Basophils % 0 Neutrophils # 2.8 Lymphocytes # 0.6 L Monocytes # 0.2 Eosinophils # 0.1 Basophils # 0.0 Hypochromasia Slight Sodium 139 Potassium 4.1 Chloride 100 Carbon Dioxide 33 H Anion Gap 6 BUN 7 Creatinine 0.66 Est GFR (CKD-EPI)AfAm >90 Est GFR (CKD-EPI)NonAf >90 Glucose 97 Calcium 9.4 Total Bilirubin 1.5 H AST 27 ALT 14 Alkaline Phosphatase 61 Total Protein 6.9 Albumin 4.1 Assessment Major Depressive Disorder, recurrent, severe Alcohol Use Disorder Plan: -Patient continues to meet criteria for inpatient psychiatric admission for symptom stabilization and safety. Patient has signed adult voluntary form and medication consent and was placed in patient's chart. -Medications: Increase Doxepin to 50 mg at bedtime for depression/anxiety/insomnia Trazodone 100 mg at bedtime for insomnia. -When necessary Ativan and Geodon for agitation/aggression. -NRT - nicotine patch -SW on board for discharge planning. Encouraged the patient to participate in milieu.
[2022-01-15 15:37] LABS: Chol/HDL Ratio 1.48 Ratio
[2022-01-15] MEDS ORDERED: DOXEPIN 25 MG CAP PO SCH (21:00)
[2022-01-16] MEDS: chlordiazePOXIDE 25 MG CAP PO SCH ×2 (08:35→21:04)
[2022-01-16] MEDS: FOLIC ACID 1 MG TAB PO SCH (08:35)
[2022-01-16] MEDS: MULTIVITAMINS, THERA 1 EACH TAB PO SCH (08:36)
[2022-01-16] MEDS: MUPIROCIN 2% OINT 22 GM TUBE TOPICAL SCH ×3 (08:36→21:10)
[2022-01-16] MEDS: CEPHALEXIN 500 MG CAP PO SCH ×3 (08:36→21:05)
[2022-01-16] MEDS: GABAPENTIN 300 MG CAP PO SCH (08:36)
[2022-01-16] MEDS: THIAMINE 100 MG TAB PO SCH (08:36)
[2022-01-16] MEDS: RIVAROXABAN 20 MG TAB PO SCH (08:37)
[2022-01-16] MEDS: NICOTINE 14MG/24HR PATCH TRANSDERM SCH (08:37)
--- NOTE | 2022-01-16 11:07 | P.PN ---
Progress Note - Text Progress Note Date: 01/16/22 Interval History: Patient was seen wandering the hallways and was directable and agreeable to speak with auto service writer in the office. The patient stresses that she is feeling increasing anxious today. She reports that if she were to return home, she does not feel that she'll be able to keep safe. Although she is denying any suicidal or homicidal ideation, the patient expresses that if she was to go home, she is concerned that she would do something to hurt herself. She is reporting e levated anxiety. She reports difficulty with sleep. She continues to endorse some withdrawal symptoms. The patient is not reporting any auditory or visual hallucinations. She is not reporting any paranoia or other delusions. She denies any issues regarding her appetite. She has been adherent with her medications. She does report some possible ALLERGY as her palms and feet appeared to be red and she does complain of some pruritus. She suspects that this is due to the lotion. She was advised to let staff know if it worsens or if she notices any itchy throat. Mental Status Exam: General Appearance: Patient appears to be stated age is alert, directable, and cooperative. Behavior: Patient is calmly seated without any agitated behavior. Eye contact is appropriate. Speech: Patient's speech is fluent and nonpressured. Mood/Affect: Mood is "sad and anxious," affect is very nervous. Suicidality/Homicidality: Patient denies having any suicidal or homicidal ideation intent or plan. Perceptions: Patient denies any visual hallucinations and denies any auditory hallucinations Though content/process: There is no evidence of any delusional thought content and thought process is linear and goal-directed. Memory and concentration: AOX3, grossly intact for the purposes of this session Judgment and insight: Improving mildly Vital Signs Temp 97.4 F L 01/16/22 06:59 Pulse 104 H 01/16/22 06:59 Resp 16 01/16/22 06:59 BP 140/88 01/16/22 06:59 Pulse Ox 98 01/14/22 10:55 Laboratory Results - Last 24 Hours 01/15/22 07:18 Sodium 139 Potassium 4.1 Chloride 100 Carbon Dioxide 33 H Anion Gap 6 BUN 7 Creatinine 0.66 Est GFR (CKD-EPI)AfAm >90 Est GFR (CKD-EPI)NonAf >90 Glucose 97 Calcium 9.4 Total Bilirubin 1.5 H AST 27 ALT 14 Alkaline Phosphatase 61 Total Protein 6.9 Albumin 4.1 Triglycerides 49.90 Cholesterol 245.00 H LDL Cholesterol Direct 75.80 LDL Cholesterol, Calc 69.0 VLDL Cholesterol, Calc HDL Cholesterol 166.00 H Cholesterol/HDL Ratio 1.48 Assessment Major Depressive Disorder, recurrent, severe Alcohol Use Disorder Plan: -Patient continues to meet criteria for inpatient psychiatric admission for symptom stabilization and safety. Patient has signed adult voluntary form and medication consent and was placed in patient's chart. -Medications: Increase doxepin to 75 mg at bedtime for depression/anxiety/insomnia Trazodone 100 mg at bedtime for insomnia. Increase gabapentin to 400 mg by mouth 3 times a day off label use for anxiety and for alcohol use disorder. Start ReVia for alcohol use disorder -When necessary Ativan and Haldol for agitation/aggression. -NRT - nicotine patch -SW on board for discharge planning. Encouraged the patient to participate in milieu.
[2022-01-16] MEDS: GABAPENTIN 400 MG CAP PO SCH ×2 (16:00→21:05)
[2022-01-16] MEDS: diphenhydrAMINE 50 MG CAP PO PRN (21:05)
[2022-01-16] MEDS: DOXEPIN 25 MG CAP PO SCH (21:05)
[2022-01-17] MEDS: MULTIVITAMINS, THERA 1 EACH TAB PO SCH (08:56)
[2022-01-17] MEDS: GABAPENTIN 400 MG CAP PO SCH ×3 (08:56→19:42)
[2022-01-17] MEDS: NALTREXONE HCL 50 MG TAB PO SCH (08:56)
[2022-01-17] MEDS: CEPHALEXIN 500 MG CAP PO SCH (08:56)
[2022-01-17] MEDS: FOLIC ACID 1 MG TAB PO SCH (08:56)
[2022-01-17] MEDS: chlordiazePOXIDE 25 MG CAP PO SCH ×2 (08:56→19:42)
[2022-01-17] MEDS: THIAMINE 100 MG TAB PO SCH (08:56)
[2022-01-17] MEDS: NICOTINE 14MG/24HR PATCH TRANSDERM SCH (08:57)
[2022-01-17] MEDS: MUPIROCIN 2% OINT 22 GM TUBE TOPICAL SCH ×3 (08:57→19:42)
[2022-01-17] MEDS: diphenhydrAMINE 50 MG CAP PO PRN (09:04)
[2022-01-17] MEDS: RIVAROXABAN 20 MG TAB PO SCH (10:03)
--- NOTE | 2022-01-17 11:33 | P.PN ---
Progress Note - Text Progress Note Date: 01/17/22 Interval history: Patient was seen wandering the hallways and was directable and agreeable to speak with writer editor. She reports her mood is "up and down", reports "high anxiety" and "start crying when talking to people". At this time patient denies any suicidal or homicidal ideations intent or plan. Denies any auditory or visual hallucinations. Patient has been compliant with medications. She reports needing an as needed Benadryl yesterday morning and this morning for itching in her hands with minimal benefit; reports the hand itching started yesterday morning. Mental status exam: General Appearance: Patient appears to be stated age is alert, directable, and cooperative. Behavior: No agitated behavior. Patient is calm and directable. Speech: Patient's speech is fluent and nonpressured. Mood/Affect: Mood is improving mildly, affect is congruent and constricted. Suicidality/Homicidality: Patient denies having any suicidal or homicidal ideation intent or plan. Perceptions: Patient denies any auditory or visual hallucinations. Though content/process: There is no evidence of any delusional thought content and thought process is linear and goal-directed. Memory and concentration: AOX3, grossly intact for the purposes of this session Judgment and insight: improving mildly Assessment/Plan: I have informed nurse of patient's skin irritation on her hands, who will notify the on-call medical doctor. I suspect this is a reaction to Keflex and will ask the medical doctor to switch to another antibiotic if appropriate. Patient will be maintained on current psychotropic medication regimen. Continue with current diagnosis. Patient continues to meet criteria for inpatient psychiatric admission for symptom stabilization and safety. Monitor for medication compliance and for any psychotropic medication side effects. Will continue to monitor ongoing response to treatment. Encouraged participation in milieu.
[2022-01-17] MEDS: DOXEPIN 25 MG CAP PO SCH (20:55)
[2022-01-18] MEDS: NICOTINE 14MG/24HR PATCH TRANSDERM SCH (07:51)
[2022-01-18] MEDS: MULTIVITAMINS, THERA 1 EACH TAB PO SCH (07:51)
[2022-01-18] MEDS: GABAPENTIN 400 MG CAP PO SCH ×3 (07:51→20:57)
[2022-01-18] MEDS: NALTREXONE HCL 50 MG TAB PO SCH (07:51)
[2022-01-18] MEDS: chlordiazePOXIDE 25 MG CAP PO SCH ×2 (07:51→20:57)
[2022-01-18] MEDS: FOLIC ACID 1 MG TAB PO SCH (07:51)
[2022-01-18] MEDS: THIAMINE 100 MG TAB PO SCH (07:51)
[2022-01-18] MEDS: MUPIROCIN 2% OINT 22 GM TUBE TOPICAL SCH ×3 (07:51→20:58)
[2022-01-18] MEDS: RIVAROXABAN 20 MG TAB PO SCH (07:52)
--- NOTE | 2022-01-18 14:29 | P.PN ---
Progress Note - Text Progress Note Date: 01/18/22 Interval history: Patient playing bingo. She was directable and agreeable to speak with automobile service writer. She reports she has been crying today, because she has been thinking of her sister who from ALS 6 years ago. 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 She reports her mood is "up and down", good but also crying and irritable at times. At this time patient denies any suicidal or homicidal ideations intent or plan. Denies any auditory or visual hallucinations. Patient has been compliant with medications. She denies side effects to medications today. The itching and redness of the palms has resolved since the Keflex was di scontinued yesterday. She reports the Doxepin is helping her fall asleep, but was still tossing and turning last night. Mental status exam: General Appearance: Patient appears to be stated age is alert, directable, and cooperative. Behavior: No agitated behavior. Patient is calm and directable. Speech: Patient's speech is fluent and nonpressured. Mood/Affect: Mood is improving mildly, affect is congruent and constricted. Suicidality/Homicidality: Patient denies having any suicidal or homicidal ideation intent or plan. Perceptions: Patient denies any auditory or visual hallucinations. Though content/process: There is no evidence of any delusional thought content and thought process is linear and goal-directed. Memory and concentration: AOX3, grossly intact for the purposes of this session Judgment and insight: improving mildly Assessment/Plan: I have added Keflex to her allergy list. Will increase Doxepin to 100 mg QHS for sleep/mood. Continue with current diagnosis. Patient continues to meet criteria for inpatient psychiatric admission for symptom stabilization and safety. Monitor for medication compliance and for any psychotropic medication side effects. Will continue to monitor ongoing response to treatment. Encouraged participation in milieu.
[2022-01-18 21:00] VITALS: RESP 18
[2022-01-18] MEDS ORDERED: DOXEPIN 25 MG CAP PO SCH (21:00)
[2022-01-19 06:44] VITALS: BP 129/65; PULSE 91; TEMP 98.7
[2022-01-19] MEDS: MUPIROCIN 2% OINT 22 GM TUBE TOPICAL SCH (08:35)
[2022-01-19] MEDS: FOLIC ACID 1 MG TAB PO SCH (08:36)
[2022-01-19] MEDS: NICOTINE 14MG/24HR PATCH TRANSDERM SCH (08:36)
[2022-01-19] MEDS: MULTIVITAMINS, THERA 1 EACH TAB PO SCH (08:36)
[2022-01-19] MEDS: NALTREXONE HCL 50 MG TAB PO SCH (08:36)
[2022-01-19] MEDS: RIVAROXABAN 20 MG TAB PO SCH (08:36)
[2022-01-19] MEDS: chlordiazePOXIDE 25 MG CAP PO SCH (08:37)
[2022-01-19] MEDS: THIAMINE 100 MG TAB PO SCH (08:37)
[2022-01-19] MEDS: GABAPENTIN 400 MG CAP PO SCH (08:37)
--- NOTE | 2022-01-19 09:40 | P.PN ---
Subjective Progress Note Date: 01/19/22 Principal diagnosis: Diagnoses: Major depressive disorder unspecified Alcohol use disorder chronic Subjective data: My main problem is alcohol I had been drinking about 12 beers a day and 1/5 of vodka daily After a while it gets me depressed The suicidal thoughts only, and gets too much but they have resolved I feel a lot better They're going to start me back on the vivitrol intramuscular There also ordered Campral for me but they don't seem to start it while you are in the hospital They have made all the arrangements for me for follow-up with my counselors and I would prefer to go home today Objective data: Mental status exam: General Appearance: Patient appears to be stated age is alert, directable, and cooperative. Behavior: No agitated behavior. Patient is calm and directable. Speech: Patient's speech is fluent and nonpressured. Mood/Affect: Mood is improving mildly, affect is congruent and constricted. Suicidality/Homicidality: Patient denies having any suicidal or homicidal ideation intent or plan. Perceptions: Patient denies any auditory or visual hallucinations. Though content/process: There is no evidence of any delusional thought content and thought process is linear and goal-directed. Memory and concentration: AOX3, grossly intact for the purposes of this session Judgment and insight: Improved Plan: The patient seems to make good progress in general We'll discuss in the treatment team meeting regarding future course of action Patient is currently not suicidal or homicidal Patient appears to be able to think more logically and constructively and forward thinking Continue current care and support Shailesh Paredes M.D. 01/19/2022 Objective - Vital Signs Vital signs: Vital Signs Temp 98.7 F 01/19/22 06:43 Pulse 91 01/19/22 06:43 Resp 18 01/19/22 06:43 BP 129/65 01/19/22 06:43 Pulse Ox 98 01/17/22 06:45 - Labs CBC & Chem 7: 01/15/22 07:18 01/15/22 07:18
--- NOTE | 2022-01-20 10:31 | P.DS ---
Providers Date of admission: 01/14/22 10:36 Expected date of discharge: 01/19/22 Attending physician: Stelring Cadet MD Consults: 01/14/22 10:37 Consult Physician Routine Consulting Provider: Marcia Emanuel Consult Reason/Comments: history and physical Do you want consulting provider notified?: Yes Primary care physician: [facility] Course: Admission HPI: Admission note was completed by Shailesh Paredes M.D. Hospital course: Upon admission to the unit patient was directable and agreeable to commence treatment and signed adult voluntary forma Patient ended up signing a deferral with the workers compensation defense attorney and agreeing to treatmentPatient got along well with other patients on the unit and followed unit protocol. Patient was compliant with the medications and denied any side effects throughout hospital course. Patient was started on detox protocol with chlordiazepoxide which was eventually discontinued before discharge without any withdrawal symptoms Patient spoke ofstressors and engaged in therapy both group and individual. Patient was also seen by medical team for history and physical exam. Throughout the course of the hospitalization patient gradually improved with regards to mood, anxiety sleep and returned back to their baseline level of functioning became more future oriented with improved insight and judgment]. On the day of discharge patient denied any suicidal or homicidal ideations intent or plan denied any auditory or visual hallucinations. Patient endorsed wanting to live for his health and family. The patient denied any access to guns or weapons. Patient denied any paranoia and did not endorse any delusions. Patient does [not] have a significant history of substance abuse [and] was counseled on abstaining from all substances including alcohol and marijuana. Patient was offered however declined inpatient substance-abuse rehab. Patient elected to do outpatient substance use treatment program through [facility]. Patient was also counseled on the medications and need for regular compliance and was encouraged to follow-up with their outpatient appointment for mental health and also for primary care. Prior to discharge a family meeting will be arranged by psychiatric social worker to answer any questions and ensure safety upon discharge Mental status exam: General Appearance: Patient appears to be stated age is alert, pleasant, and cooperative. Patient is in no acute distress and has improved hygiene and grooming Behavior: Patient is calmly seated without any agitated behavior. Speech: Patient's speech is fluent and nonpressured. Mood/Affect: Patient reports their mood is better , affect is congruent and euthymic. Suicidality/Homicidality: Patient denies having any suicidal or homicidal ideation intent or plan. Perceptions: Patient denies any auditory or visual hallucinations. Though content/process: There is no evidence of any delusional thought content and thought process is linear and goal-directed. [more future oriented] Memory and concentration: AOX3, grossly intact r the purposes of this session. Can spell "WORLD" backwards correctly. Judgment and insight: improved with guarded prognosis Impression: Adjustment disorder with mixed emotional features Depressive disorder unspecified resolved Alcohol use disorder chronic Nicotine dependence Plan: Adjust -Continue with discharge today as patient has improved and stabilized psychiatrically and is not currently an imminent threat . Patient will remain at chronically elevated risk for harm to self and/or others due to his impulsivity and polysubstance abuse. -Continue medications: See the medication list -Patient was counseled on the need for medication compliance and appropriate follow-up at mental health and also primary care for medical issues. Patient verbalized understanding and agreed. -Social work to arrange for and conduct family meeting to ensure safety upon discharge and answer any questions/concerns.Social work also to arrange for patients follow up appointments with [facility] for psychiatric care along with follow up with primary care provider. -Patient counseled on abstaining from recreational drugs and marijuana and alcoh ol. Was informed/educated on the adverse effects on their physical and mental health. Patient verbally agreed and understood Patient was offered substance abuse treatment however declined at this time. -Patient was instructed to return to the hospital or seek immediate medical care if their psychiatric or medical symptoms do worsen or reoccur. Shailesh Paredes M.D. 01/20/2022 Patient Condition at Discharge: Fair Plan - Discharge Summary Discharge Rx Participant: Yes New Discharge Prescriptions: New Nicotine 14Mg/24Hr Patch [Habitrol] 1 patch TRANSDERM DAILY #14 patch Doxepin [SINEquan] 100 mg PO HS 30 Days cap Mupirocin 2% Oint [Bactroban 2% Oint] 1 applic TOPICAL TID #1 Fluticasone Nasal [place] [Flonase Nasal [place]] 1 - 2 spray EA NOSTRIL BID PRN gm PRN Reason: Allergy Symptoms Naltrexone HCl [Revia] 50 mg PO DAILY 30 Days tab Continue Albuterol Sulfate [Proair Hfa] 2 puff INHALATION RT-Q6H PRN PRN Reason: Shortness Of Breath Multivitamins, Thera [Multivitamin (formulary)] 1 tab PO DAILY Rivaroxaban [Xarelto] 20 mg PO DAILY 30 Days tab Thiamine [Vitamin B-1] 100 mg PO BID-W/MEALS #60 tab Fluticasone Nasal [place] [Flonase Nasal [place]] 1 - 2 spray EA NOSTRIL BID PRN PRN Reason: Allergy Symptoms Folic Acid 1 mg PO DAILY tab Sodium Chloride [[place]] 2 spr EA NOSTRIL QID PRN PRN Reason: Congestion Gabapentin 300 mg PO TID 3 Days cap Discontinued Venlafaxine HCl ER [Effexor XR] 225 mg PO DAILY 30 Days #90 cap Naltrexone Microspheres [Vivitrol] 380 mg IM Q28D traZODone HCL [Desyrel] 200 mg PO HS PRN 30 Days #60 tab PRN Reason: Insomnia Naltrexone HCl [Revia] 50 mg PO DAILY 14 Days #14 tab Discharge Medication List Thiamine [Vitamin B-1] 100 mg PO BID-W/MEALS #60 tab 09/09/21 [Rx] Albuterol Sulfate [Proair Hfa] 2 puff INHALATION RT-Q6H PRN 11/14/21 [History] Fluticasone Nasal [place] [Flonase Nasal [place]] 1 - 2 spray EA NOSTRIL BID PRN 11/14/21 [History] Folic Acid 1 mg PO DAILY tab 01/08/22 [Rx] Multivitamins, Thera [Multivitamin (formulary)] 1 tab PO DAILY 01/13/22 [History] Sodium Chloride [[place]] 2 spr EA NOSTRIL QID PRN 01/13/22 [History] Doxepin [SINEquan] 100 mg PO HS 30 Days cap 01/19/22 [Rx] Fluticasone Nasal [place] [Flonase Nasal [place]] 1 - 2 spray EA NOSTRIL BID PRN gm 01/19/22 [Rx] Gabapentin 300 mg PO TID 3 Days cap 01/19/22 [Rx] Mupirocin 2% Oint [Bactroban 2% Oint] 1 applic TOPICAL TID #1 01/19/22 [Rx] Naltrexone HCl [Revia] 50 mg PO DAILY 30 Days tab 01/19/22 [Rx] Nicotine 14Mg/24Hr Patch [Habitrol] 1 patch TRANSDERM DAILY #14 patch 01/19/22 [Rx] Rivaroxaban [Xarelto] 20 mg PO DAILY 30 Days tab 01/19/22 [Rx] Follow up Appointment(s)/Referral(s): [facility] [Outside] - 01/19/22 10:30 am (01/19/22 at 1030 with Madeleine 01/20/[address] Harrison 01-22-22 @ 2:00 with Madeleine Barroso ) Constantine Figueroa, [Primary Care Provider] - 1-2 days Patient Instructions/Handouts: How to Stop Smoking (DC), Depression (DC), Alcohol Intoxication (DC) Activity/Diet/Wound Care/Special Instructions: Activity and diet as tolerated. Avoid the use of street drugs and alcohol. Take all medications as prescribed. When you are in need of refills on your medications please contact your medical provider and/or outpatient psychiatrist to have this done. Please go to scheduled outpatient appointment for aftercare treatment. If symptoms return or become worse, call the crisis line at and/or go to the nearest emergency room for evaluation Discharge Disposition: HOME SELF-CARE
== END 2022-01-19 12:51 | disposition home or self-care (01) | DRG 882 ==
LOC: EC 18:48 → 3MHU 01-14 10:36
PROVIDERS: ADMIT Psychiatry & Neurology Psychiatry; ATTEND Psychiatry & Neurology Psychiatry
DX: F43.23 Adjustment disorder with mixed anxiety and depressed mood (principal); F33.2 Major depressive disorder, recurrent severe without psychotic features; F10.239 Alcohol dependence with withdrawal, unspecified; L03.116 Cellulitis of left lower limb; F10.229 Alcohol dependence with intoxication, unspecified; F17.200 Nicotine dependence, unspecified, uncomplicated; I10 Essential (primary) hypertension; Z56.0 Unemployment, unspecified; Z79.01 Long term (current) use of anticoagulants; Z86.718 Personal history of other venous thrombosis and embolism; Z87.820 Personal history of traumatic brain injury; Z91.14 Patient's other noncompliance with medication regimen; Z20.822 Contact with and (suspected) exposure to COVID-19
CPT/HCPCS: 80053; 80061; 80306; 82075; 83721; 85025; 87635; 90686; 90732; 93970; 99285

== ENCOUNTER 2022-01-25 05:42 | Emergency (ER) | payer OTHER ==
[2022-01-25 05:54] VITALS: RESP 18
[2022-01-25] MEDS ORDERED: KETOROLAC 15 MG/ML 1 ML VIAL IVP STA (06:26)
[2022-01-25 06:49] LABS: HCT 36.8 % (34.0-46.0); HGB 11.5 gm/dL (11.4-16.0); Hypochromasia Slight; MCH 30.5 pg (25.0-35.0); MCHC 31.1 g/dL (31.0-37.0); MCV 98.1 fL (80.0-100.0); Mean Platelet Volume 7.2; RBC 3.75 m/uL (3.80-5.40); RDW 13.5 % (11.5-15.5); WBC 3.8 k/uL (3.8-10.6)
[2022-01-25 07:05] LABS: ALT 13 U/L (4-34); AST 25 U/L (14-36); African American GFR (CKD) >90 (>60 ml/min/1.73 sqM); Albumin 4.1 g/dL (3.5-5.0); Alkaline Phosphatase 65 U/L (38-126); Anion Gap 6 mmol/L; Blood Urea Nitrogen 10 mg/dL (7-17); Calcium 8.5 mg/dL (8.4-10.2); Carbon Dioxide 30 mmol/L (22-30); Chloride 109 mmol/L (98-107); Glucose 86 mg/dL (74-99); Non-African American GFR(CKD) >90 (>60 ml/min/1.73 sqM); Potassium 4.1 mmol/L (3.5-5.1); Sodium 145 mmol/L (137-145); Total Bilirubin 0.4 mg/dL (0.2-1.3); Total Protein 6.7 g/dL (6.3-8.2)
[2022-01-25 07:08] LABS: Platelet Count 332 k/uL (150-450)
--- NOTE | 2022-01-25 07:13 | ED ---
Extremity Problem HPI - General Chief complaint: Extremity Problem,Nontraumatic Stated complaint: cellulitis Time Seen by Provider: 01/25/22 05:58 Source: patient, RN notes reviewed, old records reviewed Mode of arrival: EMS Limitations: no limitations - History of Present Illness Initial comments: Patient is a 56-year-old female history of depression, alcohol abuse, DVT, hypertension, presenting to the emergency Department with complaints of pain and swelling bilateral lower extremities for the past 3 days. She denies any injuries or trauma to the legs. She denies any fevers or chills, no nausea or vomiting. She does have history of DVT, takes Xarerlto and is compliant with her medication. She denies any chest pain or shortness of breath, no abdominal pain. Patient denies any history of heart failure. She has no further complaints. - Related Data Home Medications Medication Instructions Recorded Confirmed Albuterol Sulfate [Proair Hfa] 2 puff INHALATION RT-Q6H PRN 11/14/21 01/13/22 Fluticasone Nasal [place] [Flonase 1 - 2 spray EA NOSTRIL BID PRN 11/14/21 01/13/22 Nasal [place]] Multivitamins, Thera [Multivitamin 1 tab PO DAILY 01/13/22 01/13/22 (formulary)] Sodium Chloride [[place]] 2 spr EA NOSTRIL QID PRN 01/13/22 01/13/22 Previous Rx's Medication Instructions Recorded Thiamine [Vitamin B-1] 100 mg PO BID-W/MEALS #60 tab 09/09/21 Folic Acid 1 mg PO DAILY tab 01/08/22 Doxepin [SINEquan] 100 mg PO HS 30 Days cap 01/19/22 Fluticasone Nasal [place] [Flonase 1 - 2 spray EA NOSTRIL BID PRN gm 01/19/22 Nasal [place]] Gabapentin 300 mg PO TID 3 Days cap 01/19/22 Mupirocin 2% Oint [Bactroban 2% 1 applic TOPICAL TID #1 01/19/22 Oint] Naltrexone HCl [Revia] 50 mg PO DAILY 30 Days tab 01/19/22 Nicotine 14Mg/24Hr Patch [Habitrol] 1 patch TRANSDERM DAILY #14 patch 01/19/22 Rivaroxaban [Xarelto] 20 mg PO DAILY 30 Days tab 01/19/22 Allergies Allergy/AdvReac Type Severity Reaction Status Date / Time bacitracin Allergy Rash/Hives Verified 01/13/22 22:59 cephalexin [From Keflex] Allergy Itching Verified 01/18/22 14:23 Review of Systems ROS Statement: Those systems with pertinent positive or pertinent negative responses have been documented in the HPI. ROS Other: All systems not noted in ROS Statement are negative. Past Medical History Past Medical History: Deep Vein Thrombosis (DVT), Hypertension Additional Past Medical History / Comment(s): concussion History of Any Multi-Drug Resistant Organisms: None Reported Past Surgical History: No Surgical Hx Reported Additional Past Surgical History / Comment(s): jaw surgery Past Psychological History: Anxiety, Depression Smoking Status: Former smoker Past Alcohol Use History: Abuse, Daily, Heavy Past Drug Use History: None Reported - Past Family History Father Additional Family Medical History / Comment(s): Spleen CA Mother Additional Family Medical History / Comment(s): empysema General Exam - General Exam Comments Initial Comments: GENERAL: Patient is well-developed and well-nourished. Patient is nontoxic and in no acute distress. HEAD: Atraumatic, normocephalic. EYES: Pupils equal round and reactive to light, extraocular movements intact, sclera anicteric, conjunctiva are normal. Eyelids were unremarkable. ENT: TMs normal, nares patent, oropharynx clear without exudates. Moist mucous memb ranes. NECK: Normal range of motion, supple without lymphadenopathy or JVD. LUNGS: Unlabored respirations. Breath sounds clear to auscultation bilaterally and equal. No wheezes rales or rhonchi. HEART: Regular rate and rhythm without murmurs, rubs or gallops. ABDOMEN: Soft, nontender, normoactive bowel sounds. No guarding, no rebound. No masses appreciated. MUSCULOSKELETAL: Normal extremities with adequate strength and normal range of motion. No clubbing or cyanosis. NEUROLOGICAL: Patient is alert and oriented x 3. Motor and sensory are also intact. Cranial nerves II through XII grossly intact. Symmetrical smile. Normal speech, normal gait. PSYCH: Normal mood, normal affect. SKIN: Warm, Dry, normal turgor. Patient has mild to moderate bilateral lower leg edema, she is neurovascular intact, sensation is equal and bilateral. No significant erythema or signs of infection. Limitations: no limitations Course Vital Signs 01/25/22 01/25/22 05:49 09:00 Temperature 97.5 F L 98.9 F Pulse Rate 87 78 Respiratory 18 18 Rate Blood Pressure 130/94 124/94 O2 Sat by Pulse 95 98 Oximetry Medical Decision Making - Medical Decision Making Patient is a 56-year-old female here with complaints of bilateral lower leg edema and pain for the past 3 days. No injuries or trauma. No hx of heart failure. Laboratory studies are within normal limits, no signs of elevated white count or CRP. Patient is resting comfortably here. I discussed these findings with her. I do believe her pain is secondary to the swelling, we discussed elevation, compression stockings throughout the day. There is no sign of cellulitis, recent Doppler to rule out DVT, she is on xarelto. Patient is stable for discharge home. Patient is agreeable with this plan of care. Return parameters were discussed. - Lab Data Result diagrams: 01/25/22 06:32 01/25/22 06:32 Lab Results 01/25/22 01/25/22 01/25/22 Range/Units 06:32 06:32 08:02 WBC 3.8 (3.8-10.6) k/uL RBC 3.75 L (3.80-5.40) m/uL Hgb 11.5 (11.4-16.0) gm/dL Hct 36.8 (34.0-46.0) % MCV 98.1 (80.0-100.0) fL MCH 30.5 (25.0-35.0) pg MCHC 31.1 (31.0-37.0) g/dL RDW 13.5 (11.5-15.5) % Plt Count 332 D (150-450) k/uL MPV 7.2 Neutrophils % Not Reportable Neutrophils % (Manual) 30 % Band Neuts % (Manual) 1 % Lymphocytes % Not Reportable Lymphocytes % (Manual) 58 % Monocytes % Not Reportable Monocytes % (Manual) 6 % Eosinophils % Not Reportable Eosinophils % (Manual) 2 % Basophils % Not Reportable Basophils % (Manual) 3 % Neutrophils # Not Reportable Neutrophils # (Manual) 1.10 L (1.3-7.7) k/uL Lymphocytes # Not Reportable Lymphocytes # (Manual) 2.20 (1.0-4.8) k/uL Monocytes # Not Reportable Monocytes # (Manual) 0.23 (0-1.0) k/uL Eosinophils # Not Reportable Eosinophils # (Manual) 0.08 (0-0.7) k/uL Basophils # Not Reportable Basophils # (Manual) 0.11 (0-0.2) k/uL Nucleated RBCs 0 (0-0) /100 WBC Manual Slide Review Performed Hypochromasia Slight ESR Cancelled 41 H Sodium 145 (137-145) mmol/L Potassium 4.1 (3.5-5.1) mmol/L Chloride 109 H (98-107) mmol/L Carbon Dioxide 30 (22-30) mmol/L Anion Gap 6 mmol/L BUN 10 (7-17) mg/dL Creatinine 0.65 (0.52-1.04) mg/dL Est GFR (CKD-EPI)AfAm >90 (>60 ml/min/1.73 sqM) Est GFR (CKD-EPI)NonAf >90 (>60 ml/min/1.73 sqM) Glucose 86 (74-99) mg/dL Calcium 8.5 (8.4-10.2) mg/dL Total Bilirubin 0.4 (0.2-1.3) mg/dL AST 25 (14-36) U/L ALT 13 (4-34) U/L Alkaline Phosphatase 65 (38-126) U/L C-Reactive Protein 0.6 (<1.0) mg/dL Total Protein 6.7 (6.3-8.2) g/dL Albumin 4.1 (3.5-5.0) g/dL Disposition Clinical Impression: Bilateral lower extremity edema Disposition: HOME SELF-CARE Condition: Stable Instructions (If sedation given, give patient instructions): Leg Edema (ED) Additional Instructions: Please return to the Emergency Department if symptoms worsen or any other concerns. Elevate legs above the heart level multiple times throughout the day. Trial of compression stockings, ankle pumps. Increase water intake. Follow-up with your primary care physician. Is patient prescribed a controlled substance at d/c from ED?: No Referrals: Constantine Figueroa DO [Primary Care Provider] - 1-2 days Time of Disposition: 09:01
[2022-01-25 07:47] LABS: Band Neutrophils % 1 %; Basophils # (M) 0.11 k/uL (0-0.2); Eosinophils # (M) 0.08 k/uL (0-0.7); Monocytes # (M) 0.23 k/uL (0-1.0); Neutrophils % (M) 30 %
[2022-01-25 07:48] LABS: Nucleated Red Blood Cells 0 /100 WBC (0-0); Total Cells Counted 100
[2022-01-25 08:20] LABS: C Reactive Protein 0.6 mg/dL (<1.0)
[2022-01-25 09:05] VITALS: BP 124/94; PULSE 78; TEMP 98.9
== END 2022-01-25 09:00 | disposition home or self-care (01) ==
LOC: EC 05:42
DX: R60.0 Localized edema (principal); Z88.1 Allergy status to other antibiotic agents; Z88.8 Allergy status to other drugs, medicaments and biological substances; I10 Essential (primary) hypertension; Z87.891 Personal history of nicotine dependence
CPT/HCPCS: 36415; 80053; 85652; 85025; 86140; 99283; 96374; J1885

== ENCOUNTER 2022-03-18 15:43 | Observation (INO) | payer OTHER ==
[2022-03-18] MEDS ORDERED: NALOXONE 0.4 MG/ML 1 ML VIAL IV PRN (16:01)
--- NOTE | 2022-03-18 16:01 | ED ---
General Adult HPI - General Chief complaint: Psychiatric Symptoms Stated complaint: EPS Time Seen by Provider: 03/18/22 15:46 Source: patient, RN notes reviewed Mode of arrival: EMS Limitations: no limitations - History of Present Illness Initial comments: Patient is a pleasant 56-year-old female presenting to the emergency Department with depression and suicidal thoughts. Symptoms have been occurring for weeks. Patient does have thoughts and plan. No homicidal thoughts. No hallucinations. Patient admits to heavy alcohol use. No street drug use. No new physical complaints. - Related Data Home Medications Medication Instructions Recorded Confirmed Albuterol Sulfate [Proair Hfa] 2 puff INHALATION RT-Q6H PRN 11/14/21 01/13/22 Fluticasone Nasal [place] [Flonase 1 - 2 spray EA NOSTRIL BID PRN 11/14/21 01/13/22 Nasal [place]] Multivitamins, Thera [Multivitamin 1 tab PO DAILY 01/13/22 01/13/22 (formulary)] Sodium Chloride [[place]] 2 spr EA NOSTRIL QID PRN 01/13/22 01/13/22 Previous Rx's Medication Instructions Recorded Thiamine [Vitamin B-1] 100 mg PO BID-W/MEALS #60 tab 09/09/21 Folic Acid 1 mg PO DAILY tab 01/08/22 Doxepin [SINEquan] 100 mg PO HS 30 Days cap 01/19/22 Fluticasone Nasal [place] [Flonase 1 - 2 spray EA NOSTRIL BID PRN gm 01/19/22 Nasal [place]] Gabapentin 300 mg PO TID 3 Days cap 01/19/22 Mupirocin 2% Oint [Bactroban 2% 1 applic TOPICAL TID #1 01/19/22 Oint] Naltrexone HCl [Revia] 50 mg PO DAILY 30 Days tab 01/19/22 Nicotine 14Mg/24Hr Patch [Habitrol] 1 patch TRANSDERM DAILY #14 patch 01/19/22 Rivaroxaban [Xarelto] 20 mg PO DAILY 30 Days tab 01/19/22 Allergies Allergy/AdvReac Type Severity Reaction Status Date / Time bacitracin Allergy Rash/Hives Verified 01/27/22 06:13 cephalexin [From Keflex] Allergy Itching Verified 01/27/22 06:13 Review of Systems ROS Statement: Those systems with pertinent positive or pertinent negative responses have been documented in the HPI. ROS Other: All systems not noted in ROS Statement are negative. Constitutional: Denies: fever Eyes: Denies: eye pain ENT: Denies: ear pain Respiratory: Denies: cough Cardiovascular: Denies: chest pain Endocrine: Denies: fatigue Gastrointestinal: Denies: abdominal pain Genitourinary: Denies: dysuria Musculoskeletal: Denies: back pain Skin: Denies: rash Neurological: Denies: weakness Psychiatric: Reports: as per HPI, depression, suicidal thoughts Past Medical History Past Medical History: Deep Vein Thrombosis (DVT), Hypertension Additional Past Medical History / Comment(s): concussion History of Any Multi-Drug Resistant Organisms: None Reported Past Surgical History: No Surgical Hx Reported Additional Past Surgical History / Comment(s): jaw surgery Past Psychological History: Anxiety, Depression Smoking Status: Former smoker Past Alcohol Use History: Abuse, Daily, Heavy Past Drug Use History: None Reported - Past Family History Father Additional Family Medical History / Comment(s): Spleen CA Mother Additional Family Medical History / Comment(s): empysema General Exam Limitations: no limitations General appearance: alert, in no apparent distress, appears intoxicated Head exam: Present: normocephalic Eye exam: Present: normal appearance Neck exam: Present: normal inspection Respiratory exam: Present: normal lung sounds bilaterally Cardiovascular Exam: Present: regular rate, normal rhythm GI/Abdominal exam: Present: soft. Absent: tenderness Extremities exam: Present: normal inspection Neurological exam: Present: alert Psychiatric exam: Present: depressed Skin exam: Present: normal color Course Vital Signs 03/18/22 15:44 Temperature 97.2 F L Pulse Rate 73 Respiratory 18 Rate Blood Pressure 137/89 O2 Sat by Pulse 95 Oximetry Medical Decision Making - Medical Decision Making Patient is updated on plan. Case was discussed with Dr. Woodward, who will admit. bAt is 257. Disposition Clinical Impression: Depression, Alcohol intoxication, Suicidal ideation Disposition: ADMITTED IP TO THIS HOSP Is patient prescribed a controlled substance at d/c from ED?: No Referrals: Constantine Figueroa DO [Primary Care Provider] - 1-2 days Time of Disposition: 16:01
[2022-03-18 16:34] LABS: Basophils % (A) 0 %; Eosinophils % (A) 0 %; HCT 37.8 % (34.0-46.0); HGB 12.3 gm/dL (11.4-16.0); Lymphocytes # (A) 1.3 k/uL (1.0-4.8); Lymphocytes % (A) 22 %; MCH 30.4 pg (25.0-35.0); MCHC 32.5 g/dL (31.0-37.0); MCV 93.4 fL (80.0-100.0); Mean Platelet Volume 7.4; Monocytes # (A) 0.1 k/uL (0-1.0); Monocytes % (A) 2 %; Neutrophils # (A) 4.2 k/uL (1.3-7.7); Neutrophils % (A) 72 %; Platelet Count 182 k/uL (150-450); RBC 4.05 m/uL (3.80-5.40); RDW 15.1 % (11.5-15.5); WBC 5.9 k/uL (3.8-10.6)
[2022-03-18 16:48] LABS: ALT 16 U/L (4-34); African American GFR (CKD) >90 (>60 ml/min/1.73 sqM); Albumin 4.6 g/dL (3.5-5.0); Anion Gap 14 mmol/L; Blood Urea Nitrogen 9 mg/dL (7-17); Calcium 8.8 mg/dL (8.4-10.2); Carbon Dioxide 23 mmol/L (22-30); Chloride 102 mmol/L (98-107); Glucose 88 mg/dL (74-99); Non-African American GFR(CKD) >90 (>60 ml/min/1.73 sqM); Sodium 139 mmol/L (137-145); Total Bilirubin 0.8 mg/dL (0.2-1.3); Total Protein 7.2 g/dL (6.3-8.2)
[2022-03-18 16:51] LABS: Potassium 4.4 mmol/L (3.5-5.1)
[2022-03-18 16:52] LABS: AST 36 U/L (14-36); Alkaline Phosphatase 70 U/L (38-126)
--- NOTE | 2022-03-18 18:31 | P.HPIM ---
History of Present Illness H&P Date: 03/18/22 History of Presenting Illness: Patient is a very pleasant 56-year-old female with a past medical history of DVT on Xarelto, bilateral lower extremity chronic lymphedema, depression and alcohol abuse. Patient reports drinking approximately a fifth of vodka along with approximately 12 beers daily and has done so for the last 5 years. Patient reports recently her depression has worsened secondary to unemployment and personal life stressors. Patient reports she has been having suicidal ideations and reports recently she developed a plan she was going to overdose and kill he rself. Patient reports history of suicidal ideations but denies ever having any previous suicidal attempts or psychiatric hospitalizations. Patient tearful upon assessment and reports she knows this time she is going to do it and really just wants her life to be over. Pt denies smoking cigarettes, marijuana use, or any other drug use. She denies having any recent infections or exposure to known ill contacts, fevers, chills, headache, lightheadedness, dizziness, recent falls or injuries, chest pain or palpitations, shortness of breath, or experiencing any numbness/tingling/weakness in her extremities. She underwent full evaluation in the emergency department. Per documentation patient's blood alcohol test was 257. Otherwise labs including CBC and CMP were unremarkable. Patient has been admitted under services of consultation to psychiatry. Review of systems: Pertinent positives and negatives as discussed in HPI, a complete review of systems was performed and all other systems are negative. Physical exam: Vital signs reviewed and stable. General: Nontoxic, no distress and appears stated age. Derm: Skin warm and dry, normal coloration for ethnicity. Head: Atraumatic, normocephalic and symmetric. Eyes: EOMs intact, no lid lag, and anicteric sclera Mouth: No lip lesions, mucus membranes moist Cardiovascular: regular rate and rhythm with normal S1S2, no murmur, positive posterior tibial pulses bilaterally, and cap refill < 2 seconds. Lungs: Respirations even, regular, and unlabored on room air. Lungs CTA bilaterally, no rhonchi, no rales, no wheezing, and no accessory muscle usage. Abdominal: soft, nontender to palpation, no guarding, no appreciable organome plamer Ext: ROM intact. No gross muscle atrophy, bilateral lower extremity venous discoloration and edema, no contractures Neuro: Speech clear, face symmetrical and CN II-XII grossly intact with no noted focal neuro deficits Psych: Alert and oriented to person, place, time, and situation. Appropriate and pleasant affect. Assessment and Plan of Care: Alcohol intoxication in active alcoholic -CIWA Protocol with symptom triggered medication management with benzodiazepines. -Continuous IV hydration. -Thiamine 100 mg twice a day -Multivitamin daily -Folate 1 mg daily -Seizure, fall, aspiration, and elopement precautions in place. -Urine drug screen -Continued close monitoring of electrolytes and replace as needed. -Telemetry monitoring. Depression with suicidal ideations and he reported plan -Provide continuous safety with sitter at bedside -Suicide precautions in place. History of DVT -Continue anticoagulation with Xarelto The patient is admitted with an anticipated less than 2 midnight stay for evaluation of alcohol intoxication and suicidal ideations CODE STATUS: Full code DVT prophylaxis: Xarelto Discussed with: Patient and RN Anticipated discharge date: tomorrow morning Anticipated discharge place: In-patient psychiatric unit A total of 38 minutes was spent on the care of this complex patient more than 50% of the time was spent in counseling and care coordination. Anthony Aiken NP rendered care for this patient independently, reviewed the findings and plan as documented in the note above. I did not physically speak with or examine the patient on this date. Past Medical History Past Medical History: Deep Vein Thrombosis (DVT), Hypertension Additional Past Medical History / Comment(s): concussion History of Any Multi-Drug Resistant Organisms: None Reported Past Surgical History: No Surgical Hx Reported Additional Past Surgical History / Comment(s): jaw surgery Past Psychological History: Anxiety, Depression Smoking Status: Former smoker Past Alcohol Use History: Abuse, Daily, Heavy Past Drug Use History: None Reported - Past Family History Father Additional Family Medical History / Comment(s): Spleen CA Mother Additional Family Medical History / Comment(s): empysema Medications and Allergies Home Medications Medication Instructions Recorded Confirmed Type Albuterol Sulfate [Proair Hfa] 2 puff INHALATION RT-Q6H PRN 11/14/21 03/18/22 History Gabapentin 300 mg PO TID 3 Days cap 01/19/22 03/18/22 Rx Naltrexone HCl [Revia] 50 mg PO DAILY 30 Days tab 01/19/22 03/18/22 Rx Rivaroxaban [Xarelto] 20 mg PO DAILY 30 Days tab 01/19/22 03/18/22 Rx Doxepin HCl [SINEquan] 225 mg PO HS 03/18/22 03/18/22 History Furosemide [Lasix] 20 mg PO DAILY 03/18/22 03/18/22 History Allergies Allergy/AdvReac Type Severity Reaction Status Date / Time bacitracin Allergy Rash/Hives Verified 03/18/22 17:31 cephalexin [From Keflex] Allergy Itching Verified 03/18/22 17:31 Physical Exam Osteopathic Statement: *. No significant issues noted on an osteopathic structural exam other than those noted in the History and Physical/Consult. Vitals: Vital Signs Temp Pulse Resp BP Pulse Ox 03/18/22 16:01 72 18 138/85 95 03/18/22 15:44 97.2 F L 73 18 137/89 95 Intake and Output 03/18/22 03/18/22 03/18/22 06:59 14:59 22:59 Other: Weight 102.058 kg Results CBC & Chem 7: 03/18/22 16:17 03/18/22 16:17 Labs: Abnormal Lab Results - Last 24 Hours (Table) 03/18/22 Range/Units 16:17 Creatinine 0.51 L (0.52-1.04) mg/dL
[2022-03-18] MEDS ORDERED: LORazepam 2 MG/ML INJ IV PRN ×3 (18:33)
[2022-03-18] MEDS ORDERED: THIAMINE 100 MG/ML 2 ML VIAL IM STA (18:33)
[2022-03-18] MEDS ORDERED: SODIUM CHLORIDE 0.9% 1,000 ML IV SCH (18:45)
[2022-03-18 18:47] LABS: Acetaminophen <10.0 ug/mL; Salicylate <1.0 mg/dL
[2022-03-18] MEDS ORDERED: chlordiazePOXIDE 25 MG CAP PO PRN ×4 (18:53)
[2022-03-18] MEDS ORDERED: DOXEPIN 25 MG CAP PO SCH (21:00)
[2022-03-18] MEDS: GABAPENTIN 300 MG CAP PO SCH (22:39)
[2022-03-19 06:05] LABS: Amphetamine Screen,Urine Not Detected (NotDetected); Barbiturate Screen,Urine Not Detected (NotDetected); Benzodiazepines Screen,Urine Not Detected (NotDetected); Cocaine Screen,Urine Not Detected (NotDetected); Methadone Screen, Urine Not Detected (NotDetected); Opiate Screen,Urine Not Detected (NotDetected); Oxycodone Screen, Urine Not Detected (NotDetected); Phencyclidine Screen,Urine Not Detected (NotDetected); Tricyclic Antidepressant,Urine Detected (NotDetected); Urn Cannabinoid Scrn Not Detected (NotDetected)
[2022-03-19] MEDS ORDERED: THIAMINE 100 MG TAB PO SCH (07:30)
[2022-03-19] MEDS ORDERED: NALTREXONE HCL 50 MG TAB PO SCH (09:00)
[2022-03-19] MEDS ORDERED: RIVAROXABAN 20 MG TAB PO SCH (09:00)
[2022-03-19] MEDS ORDERED: FOLIC ACID 1 MG TAB PO SCH (09:00)
[2022-03-19] MEDS ORDERED: MULTIVITAMINS, THERA 1 EACH TAB PO SCH (09:00)
[2022-03-19] MEDS ORDERED: FUROSEMIDE 20 MG TAB PO SCH (09:00)
[2022-03-19] MEDS: GABAPENTIN 300 MG CAP PO SCH ×2 (09:15→15:32)
[2022-03-19 09:25] VITALS: RESP 17
[2022-03-19 10:20] LABS: HCT 36.1 % (37.2-46.3); HGB 11.4 g/dL (12.0-15.0); MCH 28.4 pg (27.0-32.0); MCHC 31.6 g/dL (32.0-37.0); MCV 89.8 fL (80.0-97.0); Mean Platelet Volume 10.3 fL (9.5-12.2); NRBC Per 100 WBC 0 /100 WBCS (0.0-0.0); Platelet Count 139 X 10*3/uL (140-440); RBC 4.02 X 10*6/uL (4.10-5.20); RDW 15.4 % (11.5-14.5); WBC 3.04 X 10*3/uL (4.50-10.00)
[2022-03-19 10:31] LABS: African American GFR (CKD) 113.9 (60.0-200.0); Albumin 4.2 g/dL (3.8-4.9); Albumin/Globulin Ratio 2.25 (1.60-3.17); Anion Gap 14.6 mmol/L (10.00-18.00); BUN/Creat Ratio 11.34 Ratio (12.00-20.00); Blood Urea Nitrogen 7.3 mg/dL (9.0-27.0); Calcium 9.1 mg/dL (8.7-10.3); Carbon Dioxide 25.9 mmol/L (20.0-27.5); Globulin 1.9 g/dL (1.6-3.3); Non-African American GFR(CKD) 98.3 (60.0-200.0); Potassium 3.9 mmol/L (3.5-5.5); Total Bilirubin 0.7 mg/dL (0.30-1.20); Total Protein 6.1 g/dL (6.2-8.2)
--- NOTE | 2022-03-19 14:08 | P.CN ---
Psychiatric Consult - . Consult date: 03/19/22 Consult:: 03/19/22 14:07 IDENTIFYING DATA: This patient is a , unemployed, 56-year-old female significant history of alcohol use disorder and depression who presents to the hospital on 03/18/2022 for suicidal ideation in the context of alcohol intoxication. HISTORY OF PRESENT ILLNESS: The patient presented to the hospital on 03/18/2022, brought into the hospital on the recommendation of her [facility] worker for suicidal ideation and worsening depression in the context of heavy alcohol use. The patient reports that she was drinking and was actively intoxicated when assessed by her [facility] worker. She reports that she has cut down her drinking from 12 beers and a fifth of liquor to only 6 beers per day. She does report increased depression which she describes his disappointment in her being unable to gain employment since she was last like go from her job at . Currently, the patient is not endorsing any suicidal or homicidal ideation, intention, and/or plan. She is not reporting any auditory or visual hallucinations. She is denying any paranoia or other delusions. The patient is denying any access to firearms or other weapons. She reports no intention or plan at suicide. The patient is primarily reporting feelings of guilt, sadness, and frustration in regards to her situation of losing her job due to her heavy alcohol use. However, the patient reports that she is future oriented as she applied for jobs week ago and is waiting to hear back from them. PAST PSYCHIATRIC HISTORY: Patient states that she has a history of depression and alcohol use disorder. She is currently on a regimen of Doxepin and revia. The patient has had at least 3 prior psychiatric hospitalizations with the last time being this past January on [address]. The patient is currently open with [facility] in outpatient setting. Patient denies any history of suicide attempts in the past. PAST MEDICAL HISTORY: Past Medical History: Deep Vein Thrombosis (DVT), Hypertension Additional Past Medical History / Comment(s): concussion History of Any Multi-Drug Resistant Organisms: None Reported Past Surgical History: No Surgical Hx Reported Additional Past Surgical History / Comment(s): jaw surgery Past Psychological History: Anxiety, Depression Smoking Status: Former smoker Past Alcohol Use History: Abuse, Daily, Heavy Past Drug Use History: None Reported ALLERGIES: Bacitracin, cephalexin CHEMICAL DEPENDENCY HISTORY: The patient reports drinking 6 beers per day. She reports that she is to drink 15 beers a day along with a fifth of liquor per day. She denies any tobacco, marijuana, or illicit drug use. FAMILY PSYCHIATRIC/SUBSTANCE USE HISTORY: Alcohol use disorder among many family members. SOCIAL HISTORY: Patient is currently , lives by herself, and has no children. MENTAL STATUS EXAM: General Appearance: Patient appears to be stated age is alert, pleasant, and cooperative. Patient appears to have fair hygiene and grooming wearing hospital gown with fair eye contact. Behavior: Patient is calmly lying in bed without any agitated behavior. Speech: Patient's speech is fluent and nonpressured. Mood/Affect: Patient reports their mood is "depressed", affect is euthymic with appropriate range Suicidality/Homicidality: Patient denies having any suicidal or homicidal ideation intent or plan. Perceptions: Patient denies any visual hallucinations and denies any auditory hallucinations Though content/process: There is no evidence of any delusional thought content and thought process is linear and goal-directed. Memory and concentration: AOX3, grossly intact for the purposes of this session. Can spell "WORLD" backwards Judgment and insight: Fair Vital Signs Temp 98.0 F 03/19/22 08:00 Pulse 66 03/19/22 08:00 Resp 17 03/19/22 08:00 BP 119/71 03/19/22 08:00 Pulse Ox 99 03/19/22 08:00 FiO2 Intake & Output 03/18/22 03/19/22 03/19/22 18:59 06:59 18:59 Output Total 100 Balance -100 Weight 102.058 kg Output: Urine 100 Other: Voiding Method Toilet # Voids 1 Laboratory Results - Last 24 Hours 03/18/22 03/18/22 03/18/22 16:17 16:17 16:17 WBC 5.9 RBC 4.05 Hgb 12.3 Hct 37.8 MCV 93.4 MCH 30.4 MCHC 32.5 RDW 15.1 Plt Count 182 MPV 7.4 Absolute Nucleated RBC Neutrophils % 72 Lymphocytes % 22 Monocytes % 2 Eosinophils % 0 Basophils % 0 Neutrophils # 4.2 Lymphocytes # 1.3 Monocytes # 0.1 Eosinophils # 0.0 Basophils # 0.0 NRBC/100 WBC Diff Sodium 139 Potassium 4.4 Chloride 102 Carbon Dioxide 23 Anion Gap 14 BUN 9 Creatinine 0.51 L Est GFR (CKD-EPI)AfAm >90 Est GFR (CKD-EPI)NonAf >90 BUN/Creatinine Ratio Glucose 88 Calcium 8.8 Magnesium Total Bilirubin 0.8 AST 36 ALT 16 Alkaline Phosphatase 70 Total Protein 7.2 Albumin 4.6 Globulin Albumin/Globulin Ratio Salicylates <1.0 Urine Opiates Screen Ur Oxycodone Screen Urine Methadone Screen Ur Propoxyphene Screen Acetaminophen <10.0 Ur Barbiturates Screen U Tricyclic Antidepress Ur Phencyclidine Scrn Ur Amphetamines Screen U Methamphetamines Scrn U Benzodiazepines Scrn Urine Cocaine Screen U Marijuana (THC) Screen Coronavirus (PCR) 03/18/22 03/19/22 03/19/22 16:21 04:22 05:48 WBC 3.04 L RBC 4.02 L Hgb 11.4 L Hct 36.1 L MCV 89.8 MCH 28.4 MCHC 31.6 L RDW 15.4 H Plt Count 139 L MPV 10.3 Absolute Nucleated RBC 0 Neutrophils % Lymphocytes % Monocytes % Eosinophils % Basophils % Neutrophils # Lymphocytes # Monocytes # Eosinophils # Basophils # NRBC/100 WBC Diff 0 Sodium Potassium Chloride Carbon Dioxide Anion Gap BUN Creatinine Est GFR (CKD-EPI)AfAm Est GFR (CKD-EPI)NonAf BUN/Creatinine Ratio Glucose Calcium Magnesium Total Bilirubin AST ALT Alkaline Phosphatase Total Protein Albumin Globulin Albumin/Globulin Ratio Salicylates Urine Opiates Screen Not Detected Ur Oxycodone Screen Not Detected Urine Methadone Screen Not Detected Ur Propoxyphene Screen Not Detected Acetaminophen Ur Barbiturates Screen Not Detected U Tricyclic Antidepress Detected H Ur Phencyclidine Scrn Not Detected Ur Amphetamines Screen Not Detected U Methamphetamines Scrn Not Detected U Benzodiazepines Scrn Not Detected Urine Cocaine Screen Not Detected U Marijuana (THC) Screen Not Detected Coronavirus (PCR) Not Detected 03/19/22 05:48 WBC RBC Hgb Hct MCV MCH MCHC RDW Plt Count MPV Absolute Nucleated RBC Neutrophils % Lymphocytes % Monocytes % Eosinophils % Basophils % Neutrophils # Lymphocytes # Monocytes # Eosinophils # Basophils # NRBC/100 WBC Diff Sodium 143 Potassium 3.9 Chloride 103 Carbon Dioxide 25.9 Anion Gap 14.60 BUN 7.3 L Creatinine 0.6 Est GFR (CKD-EPI)AfAm 113.9 Est GFR (CKD-EPI)NonAf 98.3 BUN/Creatinine Ratio 11.34 L Glucose 77 Calcium 9.1 Magnesium 2.0 Total Bilirubin 0.70 AST 28 ALT 16 Alkaline Phosphatase 66 Total Protein 6.1 L Albumin 4.2 Globulin 1.9 Albumin/Globulin Ratio 2.25 Salicylates Urine Opiates Screen Ur Oxycodone Screen Urine Methadone Screen Ur Propoxyphene Screen Acetaminophen Ur Barbiturates Screen U Tricyclic Antidepress Ur Phencyclidine Scrn Ur Amphetamines Screen U Methamphetamines Scrn U Benzodiazepines Scrn Urine Cocaine Screen U Marijuana (THC) Screen Coronavirus (PCR) IMPRESSIONS: Major Depressive Disorder Alcohol Use Disorder PLAN: -At this time patient DOES NOT meet criteria for inpatient psychiatric admission. The patient is currently not endorsing any suicidal ideation and is future and goal oriented. She does remain at elevated risk among the general population due to her heavy alcohol use however she is open with outpatient services,'s future and goal oriented, and expresses a strong desire to live. -Delirium precautions recommended with patient including - avoiding use of narcotics and DISH UP PERSON sedatives, limit anticholinergic medications when possible, frequent re-orientation, minimize use of restraints, open window shades during the day and close them at night -Would recommend the following medication changes/additions: No medication recommendations be made at this time. Agree with Librium for alcohol detoxification. Continue doxepin 225 mg by mouth at bedtime for depression/insomnia, continue gabapentin 300 mg by mouth 3 times a day, and continue ReVia 50 mg by mouth daily for alcohol use disorder -May discontinue one-to-one sitter. -Recommend outpatient psychiatric follow-up. -Psychiatry will sign off at this point, please contact with any questions. 03/19/22 14:07
--- NOTE | 2022-03-19 14:22 | P.DS ---
Providers Date of admission: 03/18/22 16:03 Expected date of discharge: 03/19/22 Attending physician: Shannan Woodward DO Consults: 03/18/22 16:01 Consult Physician Routine Consulting Provider: Sterling Cadet Consult Reason/Comments: Depressed with suicidality Do you want consulting provider notified?: Yes Primary care physician: [facility] Course: Discharge Diagnosis: Alcohol intoxication in active alcoholic, strongly recommend cessation of all alcohol use in consideration of inpatient drug and alcohol rehabilitation facility such as [place]. Depression with suicidal ideations and reported plan, patient medically stable for discharge to inpatient psychiatric unit. History of DVT, Continue anticoagulation with Xarelto. Hospital Course: Patient is a very pleasant 56-year-old female with a past medical history of DVT on Xarelto, bilateral lower extremity chronic lymphedema, depression and alcohol abuse. Patient reports drinking approximately a fifth of vodka along with approximately 12 beers daily and has done so for the last 5 years. Patient reports recently her depression has worsened secondary to unemployment and personal life stressors. Patient reports she has been having suicidal ideations and reports recently she developed a plan she was going to overdose and kill herself. Patient reports history of suicidal ideations but denies ever having any previous suicidal attempts or psychiatric hospitalizations. Patient tearful upon assessment and reports she knows this time she is going to do it and really just wants her life to be over. Pt denies smoking cigarettes, marijuana use, or any other drug use. She denies having any recent infections or exposure to known ill contacts, fevers, chills, headache, lightheadedness, dizziness, recent falls or injuries, chest pain or palpitations, shortness of breath, or experiencing any numbness/tingling/weakness in her extremities. She underwent full evaluation in the emergency department. Per documentation patient's blood alcohol test was 257. Otherwise labs including CBC and CMP were unremarkable. Patient was admitted under services of consultation to psychiatry. Patient monitored overnight until clinically sober. Morning vital signs unremarkable with blood pressure 119/71, heart rate 66, respiratory rate 17, SpO2 99% on room air, and temperature of 98.0F. Patient's CIWA score is 0. Patient is medically stable for discharge at this time, to be evaluated by psychiatry and likely transferred to inpatient psychiatric unit. Physical exam: Vital signs reviewed and stable. General: Nontoxic, no distress and appears stated age. Derm: Skin warm and dry, normal coloration for ethnicity. Head: Atraumatic, normocephalic and symmetric. Eyes: EOMs intact, no lid lag, and anicteric sclera Mouth: No lip lesions, mucus membranes moist Cardiovascular: regular rate and rhythm with normal S1S2, no murmur, positive posterior tibial pulses bilaterally, and cap refill < 2 seconds. Lungs: Respirations even, regular, and unlabored on room air. Lungs CTA bilaterally, no rhonchi, no rales, no wheezing, and no accessory muscle usage. Abdominal: soft, nontender to palpation, no guarding, no appreciable organomegaly Ext: ROM intact. No gross muscle atrophy, bilateral lower extremity venous discoloration and edema, no contractures Neuro: Speech clear, face symmetrical and CN II-XII grossly intact with no noted focal neuro deficits Psych: Alert and oriented to person, place, time, and situation. Appropriate and pleasant affect. A total of 34 minutes of time were spent preparing this complex discharge summary. Pt was discharged on 03/19/22 at 9:59 AM Anthony Aiken NP rendered care for this patient independently, reviewed the findings and plan as documented in the note above. I did not physically speak with or examine the patient on this date. Patient Condition at Discharge: Stable Plan - Discharge Summary Discharge Rx Participant: Yes New Discharge Prescriptions: New Folic Acid 1 mg PO DAILY tab Multivitamins, Thera [Multivitamin (formulary)] 1 each PO DAILY tab Thiamine [Vitamin B-1] 100 mg PO BID-W/MEALS tab Continue Albuterol Sulfate [Proair Hfa] 2 puff INHALATION RT-Q6H PRN PRN Reason: Shortness Of Breath Rivaroxaban [Xarelto] 20 mg PO DAILY 30 Days tab Furosemide [Lasix] 20 mg PO DAILY Naltrexone HCl [Revia] 50 mg PO DAILY 30 Days tab Gabapentin 300 mg PO TID 3 Days cap Doxepin HCl [SINEquan] 225 mg PO HS Discharge Medication List Albuterol Sulfate [Proair Hfa] 2 puff INHALATION RT-Q6H PRN 11/14/21 [History] Gabapentin 300 mg PO TID 3 Days cap 01/19/22 [Rx] Naltrexone HCl [Revia] 50 mg PO DAILY 30 Days tab 01/19/22 [Rx] Rivaroxaban [Xarelto] 20 mg PO DAILY 30 Days tab 01/19/22 [Rx] Doxepin HCl [SINEquan] 225 mg PO HS 03/18/22 [History] Furosemide [Lasix] 20 mg PO DAILY 03/18/22 [History] Folic Acid 1 mg PO DAILY tab 03/19/22 [Rx] Multivitamins, Thera [Multivitamin (formulary)] 1 each PO DAILY tab 03/19/22 [Rx] Thiamine [Vitamin B-1] 100 mg PO BID-W/MEALS tab 03/19/22 [Rx] Follow up Appointment(s)/Referral(s): Constantine Figueroa DO [Primary Care Provider] - 03/24/22 2:00 pm Patient Instructions/Handouts: Depression (DC), Alcohol Intoxication (DC), Abuse of Alcohol (DC), Help Prevent Suicide (DC) Activity/Diet/Wound Care/Special Instructions: Activity: As tolerated. Take breaks as needed. Diet: Heart healthy and carb consistent diet. Avoid salts, or foods with hidden salts such as canned or boxed foods and frozen dinners. Extra salt makes your heart work harder and traps the fluid in your body for longer. Special Instructions: Take all of your medications as directed and remember to keep all of your doctor's appointments and follow-up as needed. Please follow up with [facility] as recommended by psychiatry. Thank you for allowing us to participate in your care, it was truly a pleasure having you for our patient!!! Discharge Disposition: HOME SELF-CARE
[2022-03-19 15:13] VITALS: BP 148/67; PULSE 98; TEMP 98.4
== END 2022-03-19 16:25 | disposition home or self-care (01) ==
LOC: EC 15:43 → 4SSUR 16:03
PROVIDERS: ADMIT Internal Medicine; ATTEND Internal Medicine
DX: F10.229 Alcohol dependence with intoxication, unspecified (principal); R45.851 Suicidal ideations; F32.A Depression, unspecified; I10 Essential (primary) hypertension; F41.9 Anxiety disorder, unspecified; I89.0 Lymphedema, not elsewhere classified; Z20.822 Contact with and (suspected) exposure to COVID-19; Z56.0 Unemployment, unspecified; Z71.9 Counseling, unspecified; Z71.41 Alcohol abuse counseling and surveillance of alcoholic; Z87.891 Personal history of nicotine dependence; Z86.718 Personal history of other venous thrombosis and embolism; Z79.01 Long term (current) use of anticoagulants; Z79.899 Other long term (current) drug therapy; Z88.1 Allergy status to other antibiotic agents; Z83.6 Family history of other diseases of the respiratory system; Z80.8 Family history of malignant neoplasm of other organs or systems; Z74.3 Need for continuous supervision; Z63.8 Other specified problems related to primary support group; Y90.8 Blood alcohol level of 240 mg/100 ml or more
CPT/HCPCS: 82075; 99285; 36415; 80053 ×2; 83735; 85025; 85027; 80306; 80143; 87635; 80179; G0378 ×2

== ENCOUNTER 2022-04-19 15:33 | Observation (INO) | payer OTHER ==
[2022-04-19 15:58] LABS: Basophils % (A) 0 %; Eosinophils # (A) 0.1 k/uL (0-0.7); Eosinophils % (A) 1 %; HCT 37.8 % (34.0-46.0); HGB 12.1 gm/dL (11.4-16.0); Lymphocytes # (A) 1.3 k/uL (1.0-4.8); Lymphocytes % (A) 28 %; MCV 93.7 fL (80.0-100.0); Mean Platelet Volume 7.7; Monocytes # (A) 0.1 k/uL (0-1.0); Monocytes % (A) 3 %; Neutrophils % (A) 65 %; Platelet Count 188 k/uL (150-450); RBC 4.03 m/uL (3.80-5.40); RDW 15.3 % (11.5-15.5); WBC 4.7 k/uL (3.8-10.6)
[2022-04-19] MEDS ORDERED: ASPIRIN 81 MG PO STA (16:00)
[2022-04-19] MEDS ORDERED: NITROGLYCERIN OINT 1 INCH/GM PACKET TOPICAL STA (16:00)
--- NOTE | 2022-04-19 16:03 | ED ---
Chest Pain HPI - General Chief Complaint: Chest Pain Stated Complaint: chest pain Source: patient, RN notes reviewed Mode of arrival: ambulatory Limitations: no limitations - History of Present Illness Initial Comments: This is a pleasant 56-year-old female with a history of alcohol dependence. Patient presents today with 4 days of chest pressure, orthopnea, exertional dyspnea, and peripheral edema. Patient states that the pain is been constant, no radiation. No alleviating or exacerbating factors. No headache, no fever or chills, no changes in vision or hearing, no sore throat or difficulty with speech, no neck pain,, no abdominal pain, no nausea or vomiting, no changes in urination or bowel movements, no numbness or tingling, no extremity pain, no skin rashes or lesions. POSITIVE peripheral edema Past medical, surgical, social, and family history reviewed. - Related Data Home Medications Medication Instructions Recorded Confirmed Albuterol Sulfate [Proair Hfa] 2 puff INHALATION RT-Q6H PRN 11/14/21 04/19/22 Furosemide [Lasix] 20 mg PO DAILY 03/18/22 04/19/22 Doxepin HCl 150 mg PO HS 04/19/22 04/19/22 Multivitamins, Thera [Multivitamin 1 tab PO DAILY 04/19/22 04/19/22 (formulary)] Previous Rx's Medication Instructions Recorded Gabapentin 300 mg PO TID 3 Days cap 01/19/22 Naltrexone HCl [Revia] 50 mg PO DAILY 30 Days tab 01/19/22 Rivaroxaban [Xarelto] 20 mg PO DAILY 30 Days tab 01/19/22 Folic Acid 1 mg PO DAILY tab 03/19/22 Thiamine [Vitamin B-1] 100 mg PO BID-W/MEALS tab 03/19/22 Allergies Allergy/AdvReac Type Severity Reaction Status Date / Time bacitracin Allergy Rash/Hives Verified 04/19/22 16:22 cephalexin [From Keflex] Allergy Itching Verified 04/19/22 16:22 Review of Systems ROS Statement: Those systems with pertinent positive or pertinent negative responses have been documented in the HPI. ROS Other: All systems not noted in ROS Statement are negative. EKG Findings - EKG Comments: EKG Findings:: EKG done at 1538 and read by the ED attending physician reveals sinus rhythm with nonspecific T-wave abnormality. Normal axis. Normal QRS morphology other than a matched R wave in V2. Normal intervals. Rate of 90. When compared to the previous study from May 2021. QT interval has normalized. No other significant changes Past Medical History Past Medical History: Deep Vein Thrombosis (DVT), Hypertension Additional Past Medical History / Comment(s): concussion History of Any Multi-Drug Resistant Organisms: None Reported Past Surgical History: No Surgical Hx Reported Additional Past Surgical History / Comment(s): jaw surgery Past Anesthesia/Blood Transfusion Reactions: No Reported Reaction Past Psychological History: Anxiety, Depression Smoking Status: Former smoker Past Alcohol Use History: Abuse, Daily, Heavy Past Drug Use History: None Reported - Past Family History Father Additional Family Medical History / Comment(s): Spleen CA Mother Additional Family Medical History / Comment(s): empysema General Exam - General Exam Comments Initial Comments: Patient in mild distress. Patient does not appear to be ill or toxic. Appears to be adequately perfused. Capillary refill less than 2 seconds. Limitations: no limitations General appearance: alert, in no apparent distress Head exam: Present: atraumatic, normocephalic, normal inspection Eye exam: Present: normal appearance, PERRL, EOMI. Absent: scleral icterus, conjunctival injection, periorbital swelling ENT exam: Present: normal exam, mucous membranes moist, normal external ear exam. Absent: mucous membranes dry Neck exam: Present: normal inspection, full ROM. Absent: tenderness, meningismus, lymphadenopathy Respiratory exam: Present: respiratory distress, rales (Bibasilar), accessory muscle use (Mild). Absent: normal lung sounds bilaterally, wheezes, rhonchi, stridor, chest wall tenderness Cardiovascular Exam: Present: regular rate, normal rhythm, normal heart sounds. Absent: systolic murmur, diastolic murmur, rubs, gallop, clicks GI/Abdominal exam: Present: soft, normal bowel sounds. Absent: distended, tenderness, guarding, rebound, rigid Extremities exam: Present: normal inspection, full ROM, normal capillary refill, pedal edema. Absent: tenderness, joint swelling, calf tenderness Back exam: Present: normal inspection Neurological exam: Present: alert, oriented X3, CN II-XII intact Psychiatric exam: Present: normal affect, normal mood Skin exam: Present: warm, dry, intact, normal color. Absent: rash Course Vital Signs 04/19/22 04/19/22 15:35 17:26 Temperature 97.7 F Pulse Rate 93 84 Respiratory 20 18 Rate Blood Pressure 109/77 115/87 O2 Sat by Pulse 92 L 95 Oximetry - Reevaluation(s) Reevaluation #1: 04/19/22 17:34 Medical record is reviewed Patient minimally improved after treatment Patient is informed of results and questions answered No acute distress at rest - Consultations Consultation #1: Case discussed with the [facility] physician hospitalist, Dr. Aggarwal for admission Chest Pain [facility] Patient presents with chest pressure for 4 days as well as peripheral edema and bibasilar rales. Patient's findings most consistent with congestive heart failure. Ischemic heart disease within the differential. Does not appear to be consistent with pulmonary embolism or infectious process. No murmur. Does not appear to be consistent with pericarditis. Issues diagnostic workup shows evidence of alcohol intoxication with an alcohol of 448. No laboratory evidence of congestive heart failure. Although the patient does have bibasilar rales and peripheral edema. Patient was diuresed here in the emergency department. We'll keep the patient on IV Lasix. Going to order an echocardiogram after speaking with the hospitalist physician. Patient admitted for observation under some physician group. The case was discussed in detail with ED attending physician. Presentation, findings, treatment plan discussed in detail. Sr. Manager Marketing Dr. Johnson Disposition Clinical Impression: Alcohol intoxication, Chest pain, Peripheral edema, History of DVT (deep vein thrombosis) Disposition: ADMITTED IP TO THIS [facility] Condition: Fair Is patient prescribed a controlled substance at d/c from ED?: No Time of Disposition: 17:16 Decision to Admit Reason: Admit from EC Decision Time: 17:16
--- NOTE | 2022-04-19 16:04 | XR ---
EXAMINATION TYPE: XR chest 2V DATE OF EXAM: 04/19/2022 COMPARISON: 12/01/2019 HISTORY: Chest pain TECHNIQUE: FINDINGS: There is no heart failure nor confluent pneumonic infiltrate. There is poor inspiration. Th ere is some mild atelectasis at the lung bases. Heart size is normal. Bony thorax is intact. IMPRESSION: Mild subsegmental atelectasis at the lung bases which appears new compared to old exam. N ormal heart.
[2022-04-19 16:06] LABS: ALT 17 U/L (4-34); AST 41 U/L (14-36); African American GFR (CKD) >90 (>60 ml/min/1.73 sqM); Albumin 4.6 g/dL (3.5-5.0); Alkaline Phosphatase 69 U/L (38-126); Anion Gap 18 mmol/L; Blood Urea Nitrogen 12 mg/dL (7-17); Calcium 8.7 mg/dL (8.4-10.2); Carbon Dioxide 17 mmol/L (22-30); Chloride 106 mmol/L (98-107); Glucose 88 mg/dL (74-99); Magnesium 1.8 mg/dL (1.6-2.3); Non-African American GFR(CKD) >90 (>60 ml/min/1.73 sqM); Potassium 4.3 mmol/L (3.5-5.1); Sodium 141 mmol/L (137-145); Total Bilirubin 0.6 mg/dL (0.2-1.3); Total Protein 7.2 g/dL (6.3-8.2)
[2022-04-19] MEDS ORDERED: FUROSEMIDE 10 MG/ML 4 ML VIAL IV STA (16:06)
[2022-04-19 16:09] LABS: INR 0.9 (<1.2); Partial Thromboplastin Time 22.7 sec (22.0-30.0)
[2022-04-19 16:36] LABS: GGT 26 U/L (12-43)
[2022-04-19 16:37] LABS: Alcohol 442 mg/dL
[2022-04-19] MEDS ORDERED: THIAMINE 100 MG/ML 2 ML VIAL IVP STA ×2 (17:38)
[2022-04-19] MEDS ORDERED: ALBUTEROL HFA INHALER INHALATION PRN (17:39)
[2022-04-19] MEDS ORDERED: HEPARIN SODIUM,PORCINE/PF 5,000 UNIT/0.5 ML SYRINGE SQ SCH (17:45)
[2022-04-19] MEDS: FUROSEMIDE 10 MG/ML 4 ML VIAL IV SCH (18:50)
[2022-04-19] MEDS ORDERED: DOXEPIN 25 MG CAP PO SCH (21:00)
[2022-04-19] MEDS: GABAPENTIN 300 MG CAP PO SCH (22:37)
[2022-04-20] MEDS ORDERED: LORazepam 2 MG/ML INJ IV PRN ×3 (01:16)
[2022-04-20] MEDS ORDERED: THIAMINE 100 MG/ML 2 ML VIAL IM STA (01:16)
--- NOTE | 2022-04-20 01:35 | P.HPIM ---
History of Present Illness H&P Date: 04/19/22 Chief Complaint: exertional dyspnea 56-year-old female with alcohol dependence, history of venous thrombus on Xarelto patient presented today with 1 week history of progressive worsening of bilateral leg edema along with exertional dyspnea with moderate exertion. Genaro kohler reports that this is new to her and getting worse over the past week decided to come in today for evaluation. She denies any cardiac history denies any history of congestive heart failure she denies any chest pain, she denies any orthopnea, denies any cough or upper respiratory infection symptoms. Denies any abdominal pain nausea vomiting. Denies any leg pain. Denies any recent travel her hospital stay. She admits to heavy alcohol consumption on daily basis, however claims to be compliant with her medications she has history of DVT in her leg more than a year ago since then she's been kept on Xarelto. She denies any GI bleeding or melena. She denies any fevers or chills nausea or vomiting. she denies any recent viral illness In the ED vital signs look stable. Chest x-ray showed bilateral basal atelectasis Blood work overall unremarkable Patient denies any tobacco smoking or illicit drugs. She admits to heavy alcohol with history of alcohol withdrawals Review of Systems Pertinent positives as noted in HPI. All other systems were reviewed and are negative Past Medical History Past Medical History: Deep Vein Thrombosis (DVT), Hypertension Additional Past Medical History / Comment(s): concussion History of Any Multi-Drug Resistant Organisms: None Reported Past Surgical History: No Surgical Hx Reported Additional Past Surgical History / Comment(s): jaw surgery Past Anesthesia/Blood Transfusion Reactions: No Reported Reaction Past Psychological History: Anxiety, Depression Smoking Status: Former smoker Past Alcohol Use History: Abuse, Daily, Heavy Past Drug Use History: None Reported - Past Family History Father Additional Family Medical History / Comment(s): Spleen CA Mother Family Medical History: COPD Additional Family Medical History / Comment(s): empysema Medications and Allergies Home Medications Medication Instructions Recorded Confirmed Type Albuterol Sulfate [Proair Hfa] 2 puff INHALATION RT-Q6H PRN 11/14/21 04/19/22 History Gabapentin 300 mg PO TID 3 Days cap 01/19/22 04/19/22 Rx Naltrexone HCl [Revia] 50 mg PO DAILY 30 Days tab 01/19/22 04/19/22 Rx Rivaroxaban [Xarelto] 20 mg PO DAILY 30 Days tab 01/19/22 04/19/22 Rx Furosemide [Lasix] 20 mg PO DAILY 03/18/22 04/19/22 History Folic Acid 1 mg PO DAILY tab 03/19/22 04/19/22 Rx Thiamine [Vitamin B-1] 100 mg PO BID-W/MEALS tab 03/19/22 04/19/22 Rx Doxepin HCl 150 mg PO HS 04/19/22 04/19/22 History Multivitamins, Thera [Multivitamin 1 tab PO DAILY 04/19/22 04/19/22 History (formulary)] Allergies Allergy/AdvReac Type Severity Reaction Status Date / Time bacitracin Allergy Rash/Hives Verified 04/19/22 16:22 cephalexin [From Keflex] Allergy Itching Verified 04/19/22 16:22 Physical Exam Vitals: Vital Signs Temp Pulse Resp BP Pulse Ox 04/19/22 18:18 95 18 123/94 96 04/19/22 17:26 84 18 115/87 95 04/19/22 15:35 97.7 F 93 20 109/77 92 L Intake and Output 04/19/22 04/19/22 04/19/22 06:59 14:59 22:59 Other: Weight 104.326 kg Constitutional: No acute distress, conversant, pleasant Eyes: Anicteric sclerae, moist conjunctiva, Pupils equal round reactive to light ENMT: NC/AT Oropharynx clear, no erythema, or exudates Neck: Supple, no masses, or JVD No carotid bruits No thyromegaly Lungs: Clear to auscultation Clear to percussion Normal respiratory effort, no accessory muscle use Cardiovascular: Heart regular in rate and rhythm, No murmurs, gallops, or rubs +3 bilateral pitting peripheral leg edema Abdominal: Soft Nontender, no guarding, rebound or rigidity Abdomen moving with respiration Normoactive bowel sounds No hepatomegaly, No splenomegaly No palpable mass No abdominal wall hernia noted Skin: Normal temperature, tone, texture, turgor No induration No subcutaneous nodules No rash, lesions No ulcers Extremities: No digital cyanosis No clubbing Pedal pulses intact and symmetrical Radial pulses intact and symmetrical No calf tenderness Psychiatric: Alert and oriented to person, place and time Appropriate affect fair judgement Neuro Muscles Strength 5/5 in all 4 extremities Sensation to light touch grossly present throughout Cranial nerves II-XII grossly intact No focal sensory deficits Lymphatics: no palpable cervical or supraclavicular , or inguinal lymph nodes Results CBC & Chem 7: 04/19/22 15:45 04/19/22 15:45 Labs: Abnormal Lab Results - Last 24 Hours (Table) 04/19/22 04/19/22 Range/Units 15:45 15:59 Carbon Dioxide 17 L (22-30) mmol/L AST 41 H (14-36) U/L Serum Alcohol 442 H* mg/dL Assessment and Plan Assessment: Exertional dyspnea, rule out congestive heart failure Check echocardiogram Cardiac monitoring IV Lasix twice a day Monitor vital signs proBNP within normal limits renal function within normal limits Alcohol dependence with impending withdrawals Thiamine Benzos per CIWA scale Patient will not be started on IV fluids due to bilateral +3 pitting leg edema and possible CHF Supportive care seizure precautions Serum alcohol level 448 History of venous thromboembolic some Continue Xarelto Check venous duplex ultrasound of bilateral legs to rule out any recurrent blood clots DVT prophylaxis on Xarelto Full code
[2022-04-20] MEDS ORDERED: THIAMINE 100 MG TAB PO SCH (07:30)
[2022-04-20] MEDS: FUROSEMIDE 10 MG/ML 4 ML VIAL IV SCH (08:02)
[2022-04-20] MEDS: GABAPENTIN 300 MG CAP PO SCH (08:02)
[2022-04-20] MEDS ORDERED: RIVAROXABAN 20 MG TAB PO SCH (09:00)
[2022-04-20] MEDS ORDERED: NALTREXONE HCL 50 MG TAB PO SCH (09:00)
[2022-04-20] MEDS ORDERED: MULTIVITAMINS, THERA 1 EACH TAB PO SCH (09:00)
[2022-04-20] MEDS ORDERED: FOLIC ACID 1 MG TAB PO SCH (09:00)
[2022-04-20] MEDS ORDERED: ASPIRIN 325 MG TAB PO SCH (09:00)
[2022-04-20 09:16] LABS: Chol/HDL Ratio 1.46 Ratio; LDL Cholesterol,Calculated 76.8 mg/dL (0.0-131.0); VLDL Calculation 10.22 mg/dL (5.00-40.00)
--- NOTE | 2022-04-20 09:49 | US ---
EXAMINATION TYPE: US venous doppler duplex LE DATE OF EXAM: 04/20/2022 9:27 AM COMPARISON: US 01/14/2022, 11/14/2021, 07/28/2019. CLINICAL HISTORY: DVT. Swelling bilateral legs. Hx DVT. Patient is on Xarelto. SIDE PERFORMED: Bilateral TECHNIQUE: The lower extremity deep venous system is examined utilizing real time linear array sonog swapna with graded compression, doppler sonography and color-flow sonography. VESSELS IMAGED: Common Femoral Vein Deep Femoral Vein Greater Saphenous Vein * Femoral Vein Popliteal Vein Small Saphenous Vein * Proximal Calf Veins (* superficial vessels) Right Leg: No evidence of DVT. Left Leg: *Internal echoes are seen within popliteal vein and prox calf veins. Color defect visualiz ed. These veins do not compress. IMPRESSION: * Redemonstration of the deep venous thrombosis of the left popliteal and proximal left calf veins, likely chronic. * No deep venous thrombosis of the right lower extremity.
--- NOTE | 2022-04-20 11:28 | CA ---
Transthoracic Echo Report Name: Brandi Lara Age: 56 Gender: F : 1965 Exam Date: 04/20/2022 10:50 Exam Location: [facility] Ht (in): 70 Wt (lb): 230 Ordering Physician: Patrick Bolton Attending/Referring Phys: Mechanical Systems Engineer Marylu Davis RDCS Procedure CPT: Indications: Heart failure Cardiac Hx: Technical Quality: Fair Contrast 1: Total Dose (mL): Contrast 2: Total Dose (mL): MEASUREMENTS (Male / Female) Normal Values 2D ECHO LV Diastolic Diameter PLAX 4.8 cm 4.2 - 5.9 / 3.9 - 5.3 cm LV Systolic Diameter PLAX 3.3 cm IVS Diastolic Thickness 1.4 cm 0.6 - 1.0 / 0.6 - 0.9 cm LVPW Diastolic Thickness 1.4 cm 0.6 - 1.0 / 0.6 - 0.9 cm LV Relative Wall Thickness 0.6 RV Internal Dim ED PLAX 3.4 cm LA Systolic Diameter LX 3.5 cm 3.0 - 4.0 / 2.7 - 3.8 cm LA Volume 45.3 cm??? 18 - 58 / 22 - 52 cm??? M-MODE Aortic Root Diameter MM 3.5 cm MV E Point Septal Separation 1.0 cm AV Cusp Separation MM 2.7 cm DOPPLER AV Peak Velocity 174.1 cm/s AV Peak Gradient 12.1 mmHg MV Area PHT 1.8 cm??? Mitral E Point Velocity 39.1 cm/s Mitral A Point Velocity 68.2 cm/s Mitral E to A Ratio 0.6 MV Deceleration Time 422.5 ms MV E' Velocity 8.5 cm/s Mitral E to MV E' Ratio 4.6 FINDINGS Left Ventricle Left ventricular ejection fraction is estimated at 60-65 %. Left ventricular cavity size normal. Severe concentric left ventricular hypertrophy. Right Ventricle Mild right ventricular dilatation. Unable to estimate the right ventricular systolic pressure no TR Right Atrium Normal right atrial size. Left Atrium Normal left atrial size. No evidence for an atrial septal defect. Mitral Valve Structurally normal mitral valve. No mitral stenosis, regurgitation or prolapse. Aortic Valve Trileaflet aortic valve. No aortic valve stenosis or regurgitation. Tricuspid Valve Structurally normal tricuspid valve. Pulmonic Valve Trace pulmonic regurgitation. Pericardium Normal pericardium. No pericardial effusion. Aorta Normal size aortic root and proximal ascending aorta. CONCLUSIONS Normal LV systolic function Previewed by: Dr. Ollie Potts MD (Electronically Signed) Final Date: 20 April 2022 11:27
[2022-04-20 13:15] VITALS: BP 135/82; PULSE 92; RESP 16; TEMP 98.2
[2022-04-20 14:11] VITALS: BMI 33.0
--- NOTE | 2022-04-20 14:29 | P.DS ---
Providers Date of admission: 04/19/22 17:52 Expected date of discharge: 04/20/22 Attending physician: Hunter Aggarwal MD Primary care physician: Constantine Figueroa [facility] Course: Discharge Diagnosis: Alcohol intoxication in active alcoholic, strongly recommend cessation of all alcohol use and consideration of inpatient drug and alcohol rehabilitation facility such as [facility].patient was provided with outpatient counseling and inpatient substance abuse facilities, and outpatient resources available to her. Chronic left lower extremity DVT, Continue anticoagulation with Xarelto. lower extremity Doppler showing redemonstration of DVT of the left popliteal and proximal left calf veins chronic and negative for acute DVT. Patient instructed to continue anticoagulation as discussed and follow up outpatient with vascular surgery as bilateral lower extremity swelling likely secondary to chronic lymphedema and peripherovascular deficiency. Chronic bilateral lower extremity edema resulting from chronic lymphedema and likely underlying peripheral vascular disease, patient recommended to follow up outpatient with vascular surgeon. Patient also educated on the importance of elevating her legs when not in use as well as compression stockings is a great way to improve lower extremity circulation and prevent/improved lower extremity edema. again, patient to follow up outpatient with vascular surgery. Hyperlipidemia, patient started on atorvastatin 40 mg daily. Depression, recommend inpatient drug and alcohol rehabilitation facility such as [facility]. Patient denies having suicidal ideations. Patient to continue to follow up outpatient with her PCP and [facility]. Hospital Course: Patient is a very pleasant 56-year-old female with a past medical history of DVT on Xarelto, bilateral lower extremity chronic lymphedema, depression and alcohol abuse. she presented to the emergency department on 04/19/22 with a chief complaint of bilateral lower extremity edema worsening 1 week accompanied by shortness of breath. Patient underwent full evaluation in the emergency department.CBC, coags, and CMP were unremarkable with the exception of mildly elevated AST of 41. Troponin negative at less than 0.012 and pro-BMP 13.serum alcohol level 442. EKG was completed showing normal sinus rhythm at 90 bpm with no noted T wave or ST abnormality showing no signs of acute ischemia.chest x-ray negative for acute cardiopulmonary process revealing mild subsegmental atelectasis. Patient was admitted under our services for overnight monitoring. bilateral lower extremity Doppler was completed with right lower extremity showing no evidence of DVT in left lower extremity revealing redemonstration of the DVT of the left popliteal and proximal left calf veins, chronic with no acute DVT reported. echocardiogram revealing normal EF of 60-65% with severe concentric left ventricular hypertrophy and mild right ventricular dilation.patient is clinically sober. Patient reports significant improvement of her lower extremities after elevation overnight. Morning lipid profile resulting elevated total cholesterol of 277. Patient started on atorvastatin 40 mg daily. discussed Doppler results with vascular surgery, recommending patient follow-up outpatient in their office and continue with current anticoagulant. is medically stable at this time had long discussion with patient regarding need for alcohol cessation and risks of continued drinking up to and including . It was strongly encourage for patient to go to [facility], however patient declining. Patient was provided with outpatient counseling and inpatient substance abuse facility information as well as outpatient resources available to her. Physical exam: Vital signs reviewed and stable. General: Nontoxic, no distress and appears stated age. Derm: Skin warm and dry, normal coloration for ethnicity. Head: Atraumatic, normocephalic and symmetric. Eyes: EOMs intact, no lid lag, and anicteric sclera Mouth: No lip lesions, mucus membranes moist Cardiovascular: regular rate and rhythm with normal S1S2, no murmur, positive posterior tibial pulses bilaterally, and cap refill < 2 seconds. Lungs: Respirations even, regular, and unlabored on room air. Lungs CTA bilaterally, no rhonchi, no rales, no wheezing, and no accessory muscle usage. Abdominal: soft, nontender to palpation, no guarding, no appreciable organomegaly Ext: ROM intact. No gross muscle atrophy, bilateral lower extremity venous discoloration and edema, no contractures and no open wounds Neuro: Speech clear, face symmetrical and CN II-XII grossly intact with no noted focal neuro deficits Psych: Alert and oriented to person, place, time, and situation. Appropriate and pleasant affect. A total of 36 minutes of time were spent preparing this complex discharge summary. Pt was discharged on 04/20/22 at 2:29 PM. Patient Condition at Discharge: Stable Plan - Discharge Summary New Discharge Prescriptions: Continue Doxepin HCl 150 mg PO HS Multivitamins, Thera [Multivitamin (formulary)] 1 tab PO DAILY No Action Albuterol Sulfate [Proair Hfa] 2 puff INHALATION RT-Q6H PRN PRN Reason: Shortness Of Breath Rivaroxaban [Xarelto] 20 mg PO DAILY 30 Days tab Furosemide [Lasix] 20 mg PO DAILY Folic Acid 1 mg PO DAILY tab Naltrexone HCl [Revia] 50 mg PO DAILY 30 Days tab Gabapentin 300 mg PO TID 3 Days cap Thiamine [Vitamin B-1] 100 mg PO BID-W/MEALS tab Discharge Medication List Albuterol Sulfate [Proair Hfa] 2 puff INHALATION RT-Q6H PRN 11/14/21 [History] Gabapentin 300 mg PO TID 3 Days cap 01/19/22 [Rx] Naltrexone HCl [Revia] 50 mg PO DAILY 30 Days tab 01/19/22 [Rx] Rivaroxaban [Xarelto] 20 mg PO DAILY 30 Days tab 01/19/22 [Rx] Furosemide [Lasix] 20 mg PO DAILY 03/18/22 [History] Folic Acid 1 mg PO DAILY tab 03/19/22 [Rx] Thiamine [Vitamin B-1] 100 mg PO BID-W/MEALS tab 03/19/22 [Rx] Doxepin HCl 150 mg PO HS 04/19/22 [History] Multivitamins, Thera [Multivitamin (formulary)] 1 tab PO DAILY 04/19/22 [History] Follow up Appointment(s)/Referral(s): Constantine Figueroa DO [Primary Care Provider] - 1-2 days Jesse Anand DO [STAFF PHYSICIAN] - 1 Week Activity/Diet/Wound Care/Special Instructions: Activity: As tolerated. Take breaks as needed. Diet: Heart healthy and carb consistent diet. Avoid salts, or foods with hidden salts such as canned or boxed foods and frozen dinners. Extra salt makes your heart work harder and traps the fluid in your body for longer. Special Instructions: Take all of your medications as directed and remember to keep all of your doctor 's appointments and follow-up as needed. It is highly recommend you stop drinking and go to an inpatient drug and alcohol rehabilitation facility. Continuing drinking can only lead to further dete riorating health conditions up to and including . continue drinking while taking a blood thinner also but she was admitted at increased risk for falls and injuries that can lead to bleeding and . The DVT in her left leg is chronic in nature and you need to continue with your previously prescribed treatment of anticoagulation with Xarelto and follow-up outpatient with vascular surgeon, Dr. Jordan. Thank you for allowing us to participate in your care, it was truly a pleasure having you for our patient!!! Discharge/Stand Alone Forms: Outpatient Counseling, In Substance Abuse Facilities, Personal Lead Simulation Modeling Engineer Discharge Disposition: HOME SELF-CARE
== END 2022-04-20 17:21 | disposition home or self-care (01) ==
LOC: EC 15:33 → 6NMEDSUR 17:52
PROVIDERS: ADMIT Student in an Organized Health Care Education/Training Program; ATTEND Student in an Organized Health Care Education/Training Program
DX: F10.220 Alcohol dependence with intoxication, uncomplicated (principal); I82.532 Chronic embolism and thrombosis of left popliteal vein; I82.5Z2 Chronic embolism and thrombosis of unspecified deep veins of left distal lower extremity; I89.0 Lymphedema, not elsewhere classified; E78.5 Hyperlipidemia, unspecified; J98.11 Atelectasis; F32.A Depression, unspecified; F41.9 Anxiety disorder, unspecified; I11.9 Hypertensive heart disease without heart failure; R07.9 Chest pain, unspecified; Z87.891 Personal history of nicotine dependence; Z79.899 Other long term (current) drug therapy; Z79.01 Long term (current) use of anticoagulants; Z80.8 Family history of malignant neoplasm of other organs or systems; Z82.5 Family history of asthma and other chronic lower respiratory diseases; Y90.8 Blood alcohol level of 240 mg/100 ml or more
CPT/HCPCS: 96376 ×2; 96372; 96374; 96375; 99285; 36415; 93005; 93306; 83880; 80061; 80053; 82977; 83735; 84443; 84484; 85025; 85610; 85730; 71046; 93970; G0378 ×2; G0480; J1940 ×2; J3411 ×2; 80320

== ENCOUNTER → 2022-06-11 | Outpatient (CLI) | payer OTHER ==
--- NOTE | 2022-06-11 16:24 | US ---
EXAMINATION TYPE: US extremity nonvasc mass LT DATE OF EXAM: 06/11/2022 COMPARISON: 04/20/2022 CLINICAL HISTORY: M25.562 left knee pain. Evaluate for montana's cyst. No fluid collection or cyst visualized in the left posterior popliteal fossa. Known chronic deep vein thrombosis is still visualized in the left popliteal vein. Not fully evalua steven with soft tissue exam. See priors for full report. IMPRESSION: 1. No [place]'s cyst identified right popliteal fossa.
== END | disposition home or self-care (01) ==
LOC: RADUSWWP 14:43
PROVIDERS: ATTEND Family Medicine
DX: M25.562 Pain in left knee (principal)

== ENCOUNTER → 2022-06-30 | Outpatient (CLI) | payer OTHER ==
--- NOTE | 2022-06-30 16:26 | US ---
EXAMINATION TYPE: US venous doppler duplex LE DATE OF EXAM: 06/30/2022 4:17 PM COMPARISON: Multiple prior US's to exclude 04/20/2022. CLINICAL HISTORY: R22.43 SWELLING IN LOWER LIMB. SIDE PERFORMED: Bilateral TECHNIQUE: The lower extremity deep venous system is examined utilizing real time linear array sonog swapna with graded compression, doppler sonography and color-flow sonography. VESSELS IMAGED: Common Femoral Vein Deep Femoral Vein Greater Saphenous Vein * Femoral Vein Popliteal Vein Small Saphenous Vein * Proximal Calf Veins (* superficial vessels) There is normal flow, compressibility, vascular waveforms on the right. Edema channels are present w ithin the left leg. Low-level internal echoes present within the left popliteal vein, there is some a rterial color flow Right Leg: Negative for DVT Left Leg: Positive for chronic appearing DVT in the popliteal through prox calf veins. There is stra nding noted with internal echoes within the vessel. IMPRESSION: No acute deep venous thrombosis is suspected. Probable chronic changes within the left p opliteal vein
== END | disposition home or self-care (01) ==
LOC: RADUSWWP 15:28
PROVIDERS: ATTEND Family Medicine
DX: R22.43 Localized swelling, mass and lump, lower limb, bilateral (principal)
CPT/HCPCS: 93970

== ENCOUNTER → 2022-06-30 | Outpatient (CLI) | payer OTHER ==
--- NOTE | 2022-07-01 08:19 | XR ---
EXAMINATION TYPE: XR tibia fibula 2 views bilateral DATE OF EXAM: 06/30/2022 COMPARISON: NONE HISTORY: 57-year-old female [id number] CONTUSION OF LEFT LOWER LEG, INITIAL ENCOUNTER FINDINGS: Generalized soft tissue swelling of the legs, left more so than right. Suspect some possibl e focal soft tissue contusion upper pretibial region on the left more so than the right. There may be some medial sided soft tissue swelling at both knees, again, left more so than the right. Some degen erative spurring is noted in the bilateral medial compartments. No acute fractures seen. IMPRESSION: Generalized soft tissue swelling left more so than right. There may be focal soft tissue contusions a long the upper pretibial regions, again, more so on the left. Suggestion of some medial sided soft ti ssue swelling at the knees. No acute fracture seen.
== END | disposition home or self-care (01) ==
LOC: RADXRMAIN 16:33
PROVIDERS: ATTEND Nurse Practitioner Family
DX: S80.12XA Contusion of left lower leg, initial encounter (principal)

== ENCOUNTER 2022-11-23 16:33 | Inpatient (IN) | payer OTHER ==
--- NOTE | 2022-11-23 17:17 | ED ---
Fall HPI - General Source: patient, EMS, RN notes reviewed Mode of arrival: EMS Limitations: no limitations <Olman Silver - Last Filed: 11/23/22 18:21> <Js Drake - Last Filed: 11/23/22 21:07> - General Chief Complaint: Fall Stated Complaint: ETOH/Fall Time Seen by Provider: 11/23/22 16:48 - History of Present Illness Initial Comments: 57-year-old female presents emergency Department chief complaint of a fall. Patient reportedly was in her apartment when workers your by her fall. She was able to crawl the door and opened it. Patient was found to be severely intoxicated and had a trip and fall. She believes she may have loss conscious. Patient states she has for head pain has no other injuries noted. Denies any blood thinners. Denies any neck or back pain. Patient was placed in c-collar by EMS. (Olman Silver) - Related Data Home Medications Medication Instructions Recorded Confirmed Multivitamins, Thera [Multivitamin 1 tab PO DAILY 04/19/22 11/23/22 (formulary)] Atorvastatin [Lipitor] 20 mg PO HS 11/23/22 11/23/22 Furosemide [Lasix] 40 mg PO DAILY 11/23/22 11/23/22 Gabapentin 600 mg PO TID 11/23/22 11/23/22 Liraglutide [Saxenda] 3 mg SQ DAILY 11/23/22 11/23/22 Naltrexone Microspheres [Vivitrol] 380 mg IM Q28D 11/23/22 11/23/22 Sodium Chloride 0.65% Nasal [Deep 2 spr EA NOSTRIL QID PRN 11/23/22 11/23/22 Sea (Saline)] Thiamine [Vitamin B-1] 100 mg PO BID 11/23/22 11/23/22 Venlafaxine HCl [Effexor XR] 225 mg PO DAILY 11/23/22 11/23/22 traZODone HCL [Desyrel] 200 mg PO HS 11/23/22 11/23/22 Previous Rx's Medication Instructions Recorded Rivaroxaban [Xarelto] 20 mg PO DAILY 30 Days tab 01/19/22 Folic Acid 1 mg PO DAILY tab 03/19/22 Allergies Allergy/AdvReac Type Severity Reaction Status Date / Time bacitracin Allergy Rash/Hives Verified 11/23/22 18:25 cephalexin [From Keflex] Allergy Itching Verified 11/23/22 18:25 Review of Systems ROS Other: All systems not noted in ROS Statement are negative. <Olman Silver - Last Filed: 11/23/22 18:21> ROS Other: All systems not noted in ROS Statement are negative. <Js Drake - Last Filed: 11/23/22 21:07> ROS Statement: Those systems with pertinent positive or pertinent negative responses have been documented in the HPI. Past Medical History Past Medical History: Deep Vein Thrombosis (DVT), Hypertension Additional Past Medical History / Comment(s): concussion History of Any Multi-Drug Resistant Organisms: None Reported Past Surgical History: No Surgical Hx Reported Additional Past Surgical History / Comment(s): jaw surgery Past Anesthesia/Blood Transfusion Reactions: No Reported Reaction Past Psychological History: Anxiety, Depression Smoking Status: Former smoker Past Alcohol Use History: Abuse, Daily, Heavy Past Drug Use History: None Reported - Past Family History Father Additional Family Medical History / Comment(s): Spleen CA Mother Family Medical History: COPD Additional Family Medical History / Comment(s): empysema <Olman Silver - Last Filed: 11/23/22 18:21> General Exam Limitations: no limitations General appearance: alert, in no apparent distress, appears intoxicated Head exam: Present: atraumatic, normocephalic. Absent: normal inspection (For head hematoma noted) Eye exam: Present: normal appearance, PERRL, EOMI. Absent: scleral icterus, conjunctival injection, periorbital swelling ENT exam: Present: normal exam, normal oropharynx, mucous membranes moist, TM's normal bilaterally, normal external ear exam Neck exam: Present: normal inspection. Absent: tenderness, meningismus, full ROM (Patient c-collar), lymphadenopathy Respiratory exam: Present: normal lung sounds bilaterally. Absent: respiratory distress, wheezes, rales, rhonchi, stridor Cardiovascular Exam: Present: regular rate, normal rhythm, normal heart sounds. Absent: systolic murmur, diastolic murmur, rubs, gallop, clicks Neurological exam: Present: alert, oriented X3, CN II-XII intact, reflexes n ormal. Absent: motor sensory deficit Skin exam: Present: warm, dry, intact, normal color. Absent: rash <Olman Silver - Last Filed: 11/23/22 18:21> Course Vital Signs 11/23/22 11/23/22 11/23/22 16:40 17:00 18:00 Pulse Rate 81 Respiratory 16 Rate Blood Pressure 136/94 136/94 133/98 O2 Sat by Pulse 95 90 L Oximetry 11/23/22 11/23/22 19:00 20:00 Pulse Rate Respiratory Rate Blood Pressure 133/98 126/76 O2 Sat by Pulse 92 L 94 L Oximetry Procedures - Restraint - Face to Face Restraint Occurrence 1 Patient's Immediate Situation: Endangers self safety, Endangers others' safety, Endangers staff safety Patient's Reaction to the Intervention: Uncooperative, Belligerent Patient's Medical & Behavioral Condition: Agitated Need to Continue or Terminate Restraint or Seclusion: Continue Face to Face Eval of Restraint Date: 11/23/22 Face to Face Eval of Restraint Time: 18:05 <Olman Silver - Last Filed: 11/23/22 18:21> Medical Decision Making - Lab Data Result diagrams: 11/23/22 18:33 11/23/22 18:33 <Js Drake - Last Filed: 11/23/22 21:07> - Medical Decision Making Was pt. sent in by a medical professional or institution (ADORE Og, ADMINISTRATIVE SERVICES DIRECTOR, urgent care, hospital, or snf...) When possible be specific @ -No Did you speak to anyone other than the patient for history (EMS, parent, family, police, friend...)? What history was obtained from this source @ -EMS provides history Did you review nursing and triage notes (agree or disagree)? Why? @ -I reviewed and agree with nursing and triage notes Were old charts reviewed (outside hosp., previous admission, EMS record, old EKG, old radiological studies, urgent care reports/EKG's, snf records)? Report findings @ -No old charts were reviewed Differential Diagnosis (chest pain, altered mental status, abdominal pain women, abdominal pain men, vaginal bleeding, weakness, fever, dyspnea, syncope, headache, dizziness, GI bleed, back pain, seizure, CVA, palpatations, mental health)? @ -not applicable EKG interpreted by me (3pts min.). @ -As above X-rays interpreted by me (1pt min.). @ -None done CT interpreted by me (1pt min.). @ -CT brain without large area of hemorrhage. Report reviewed U/S interpreted by me (1pt. min.). @ -None done What testing was considered but not performed or refused? (CT, X-rays, U/S, labs)? Why? @ -None What meds were considered but not given or refused? Why? @ -None Did you discuss the management of the patient with other professionals (professionals i.e. , PA, ADMINISTRATIVE SERVICES DIRECTOR, lab, RT, psych nurse, criminal justice social worker, mold builder, teacher, environmental health officer, case technician)? Give summary @ -Case was discussed with practitioner just taking, covering with Dr. Persaud, who will admit covering Dr. Figueroa Was smoking cessation discussed for >3mins.? @ -No Was critical care preformed (if so, how long)? @ -No Were there social determinants of health that impacted care today? How? (Homelessness, low income, unemployed, alcoholism, drug addiction, transportation, low edu. Level, literacy, decrease access to med. care, shelter, rehab)? @ -No Was there de-escalation of care discussed even if they declined (Discuss DNR or withdrawal of care, Hospice)? DNR status @ -No What co-morbidities impacted this encounter? (DM, HTN, Smoking, COPD, CAD, Cancer, CVA, ARF, Chemo, Hep., AIDS, mental health diagnosis, sleep apnea, morbid obesity)? @ -None Was patient admitted / discharged? Hospital course, mention meds given and route, prescriptions, significant lab abnormalities, going to OR and other pertinent info. @ -Patient reevaluated and now resting comfortably in bed. Secondary to alcohol intoxication patient will be admitted Undiagnosed new problem with uncertain prognosis? @ -No Drug Therapy requiring intensive monitoring for toxicity (Heparin, Nitro, Insulin, Cardizem)? @ -No Were any procedures done? @ -No Diagnosis/symptom? @ -Alcohol intoxication Acute, or Chronic, or Acute on Chronic? @ -Acute Uncomplicated (without systemic symptoms) or Complicated (systemic symptoms)? @ -default Side effects of treatment? @ -No Exacerbation, Progression, or Severe Exacerbation? @ -No Poses a threat to life or bodily function? How? (Chest pain, [place], [place], pneumonia, PE, COPD, DKA, ARF, appy, cholecystitis, CVA, Diverticulitis, Homicidal, Suicidal, threat to staff... and all critical care pts) @ -No (Js Drake) - Lab Data Lab Results 11/23/22 11/23/22 Range/Units 18:33 18:33 WBC 6.7 (3.8-10.6) k/uL RBC 4.64 (3.80-5.40) m/uL Hgb 13.4 (11.4-16.0) gm/dL Hct 42.1 (34.0-46.0) % MCV 90.8 (80.0-100.0) fL MCH 28.9 (25.0-35.0) pg MCHC 31.9 (31.0-37.0) g/dL RDW 15.6 H (11.5-15.5) % Plt Count 155 (150-450) k/uL MPV 7.2 Neutrophils % 72 % Lymphocytes % 20 % Monocytes % 4 % Eosinophils % 0 % Basophils % 1 % Neutrophils # 4.8 (1.3-7.7) k/uL Lymphocytes # 1.4 (1.0-4.8) k/uL Monocytes # 0.3 (0-1.0) k/uL Eosinophils # 0.0 (0-0.7) k/uL Basophils # 0.0 (0-0.2) k/uL Sodium 140 (137-145) mmol/L Potassium 5.5 H (3.5-5.1) mmol/L Chloride 101 (98-107) mmol/L Carbon Dioxide 20 L (22-30) mmol/L Anion Gap 19 mmol/L BUN 6 L (7-17) mg/dL Creatinine 0.54 (0.52-1.04) mg/dL Est GFR (CKD-EPI)AfAm >90 (>60 ml/min/1.73 sqM) Est GFR (CKD-EPI)NonAf >90 (>60 ml/min/1.73 sqM) Glucose 85 (74-99) mg/dL Calcium 8.3 L (8.4-10.2) mg/dL Magnesium 2.0 (1.6-2.3) mg/dL Total Bilirubin 1.2 (0.2-1.3) mg/dL AST 108 H (14-36) U/L ALT 47 H (4-34) U/L Alkaline Phosphatase 66 (38-126) U/L Total Protein 7.1 (6.3-8.2) g/dL Albumin 4.5 (3.5-5.0) g/dL Serum Alcohol 535 H* mg/dL Disposition <Olman Silver - Last Filed: 11/23/22 18:21> Is patient prescribed a controlled substance at d/c from ED?: No Time of Disposition: 21:07 <Js Drake - Last Filed: 11/23/22 21:07> Clinical Impression: Alcohol intoxication Disposition: ADMITTED IP TO THIS HOSP Referrals: Constantine Figueroa DO [Primary Care Provider] - 1-2 days
[2022-11-23] MEDS ORDERED: HALOPERIDOL LACTATE 5 MG/ML 1 ML VIAL IM STA (17:30)
[2022-11-23] MEDS ORDERED: THIAMINE 100 MG/ML 2 ML VIAL IM STA (18:22)
[2022-11-23 18:46] LABS: Basophils % (A) 1 %; Eosinophils % (A) 0 %; HCT 42.1 % (34.0-46.0); HGB 13.4 gm/dL (11.4-16.0); Lymphocytes # (A) 1.4 k/uL (1.0-4.8); Lymphocytes % (A) 20 %; MCH 28.9 pg (25.0-35.0); MCHC 31.9 g/dL (31.0-37.0); MCV 90.8 fL (80.0-100.0); Mean Platelet Volume 7.2; Monocytes # (A) 0.3 k/uL (0-1.0); Monocytes % (A) 4 %; Neutrophils # (A) 4.8 k/uL (1.3-7.7); Neutrophils % (A) 72 %; Platelet Count 155 k/uL (150-450); RBC 4.64 m/uL (3.80-5.40); RDW 15.6 % (11.5-15.5); WBC 6.7 k/uL (3.8-10.6)
[2022-11-23 19:03] LABS: Chloride 101 mmol/L (98-107)
[2022-11-23 19:04] LABS: ALT 47 U/L (4-34); AST 108 U/L (14-36); African American GFR (CKD) >90 (>60 ml/min/1.73 sqM); Albumin 4.5 g/dL (3.5-5.0); Alkaline Phosphatase 66 U/L (38-126); Anion Gap 19 mmol/L; Blood Urea Nitrogen 6 mg/dL (7-17); Calcium 8.3 mg/dL (8.4-10.2); Carbon Dioxide 20 mmol/L (22-30); Glucose 85 mg/dL (74-99); Non-African American GFR(CKD) >90 (>60 ml/min/1.73 sqM); Potassium 5.5 mmol/L (3.5-5.1); Sodium 140 mmol/L (137-145); Total Bilirubin 1.2 mg/dL (0.2-1.3); Total Protein 7.1 g/dL (6.3-8.2)
[2022-11-23 19:17] LABS: Alcohol 535 mg/dL
[2022-11-23] MEDS: LORazepam 2 MG/ML INJ IV PRN ×2 (19:34→22:43)
--- NOTE | 2022-11-23 20:55 | CT ---
EXAMINATION TYPE: CT brain cspine wo con DATE OF EXAM: 11/23/2022 COMPARISON: Head CT scan 02/10/2021 HISTORY: etoh and fall CT DLP: 3223.6 mGycm Automated exposure control for dose reduction was used. Images of the brain and cervical spine obtained with no contrast. There is mild cerebral atrophy. There is no mass effect or midline shift. No sign of intracranial hem orrhage. Calvarium is intact. Skull base is intact. Cervical vertebra have normal alignment. There is mild spurring of the endplates from C3 to C7. Facet joints are intact. Posterior elements are intact. No compression fracture. IMPRESSION: Negative CT scan of the brain. No change. Spondylotic changes in the cervical spine. No fracture.
[2022-11-23] MEDS ORDERED: NALOXONE 0.4 MG/ML 1 ML VIAL IV PRN (21:08)
[2022-11-23] MEDS: SODIUM CHLORIDE 0.9% 1,000 ML IV SCH (22:45)
[2022-11-24] MEDS: LORazepam 2 MG/ML INJ IV PRN ×7 (00:35→21:07)
[2022-11-24] MEDS ORDERED: SODIUM CHLORIDE 0.65% NASAL SPRAY 44 ML BTL INTRANASAL PRN (06:09)
[2022-11-24 07:02] LABS: African American GFR (CKD) >90 (>60 ml/min/1.73 sqM); Anion Gap 13 mmol/L; Blood Urea Nitrogen 6 mg/dL (7-17); Calcium 7.9 mg/dL (8.4-10.2); Carbon Dioxide 23 mmol/L (22-30); Chloride 102 mmol/L (98-107); Glucose 66 mg/dL (74-99); Non-African American GFR(CKD) >90 (>60 ml/min/1.73 sqM); Potassium 4.4 mmol/L (3.5-5.1); Sodium 138 mmol/L (137-145)
[2022-11-24] MEDS: THIAMINE 100 MG TAB PO SCH ×2 (08:34→20:34)
[2022-11-24] MEDS: MULTIVITAMINS, THERA 1 EACH TAB PO SCH (08:34)
[2022-11-24] MEDS: FOLIC ACID 1 MG TAB PO SCH (08:34)
[2022-11-24] MEDS: SODIUM CHLORIDE 0.9% 1,000 ML IV SCH (08:35)
[2022-11-24] MEDS: VENLAFAXINE HCL ER 75 MG CAP PO SCH (08:35)
[2022-11-24] MEDS ORDERED: LIRAGLUTIDE 3 MG/0.5 ML SQ SCH (09:00)
[2022-11-24] MEDS ORDERED: THIAMINE 100 MG TAB PO SCH (09:00)
[2022-11-24] MEDS ORDERED: PANTOPRAZOLE 40 MG/10 ML VIAL IVP SCH (09:45)
--- NOTE | 2022-11-24 14:33 | P.HPIM ---
History of Present Illness H&P Date: 11/24/22 This is a 57 year old female with medical history of hypertension, DVT, anxiety/depression, former smoker, and chronic daily alcohol abuse. Patient reports drinking 10 beers plus a fifth of vodka daily. Patient presents to the hospital after fall at home and initial work up reveals a blood alcohol content level of 535. Potassium was elevated at 5.5. AST/ALT are elevated. Patient is admitted for acute alcohol intoxication and monitoring for acute alcohol withdrawal. Patient does endorse a desire to quit drinking and has had multiple admission to rehabilitation centers. She reports that she just goes back to drinking. Patient does live by herself and does not have close family. 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 Patient was admitted to the medical floor and started on ativan CIWA protocol. She did have a fall over the night and hit her head. She does have a small faint area of ecchymosis in the hairline/left frontal lobe area. She had head and cervical spine CT negative for acute fracture or hemorrhage. Patient is maintained on xarelto for DVT. She does report to having some urinary leaking and found to have urinary retention on bladder scan. and noted to have diarrhea which nursing reports as almost black in color. Patient denies abdominal pain, no nausea or vomiting. REVIEW OF SYSTEMS: CONSTITUTIONAL: No fever, no malaise, no fatigue. HEENT: No recent visual problems or hearing problems. Denied any sore throat. CARDIOVASCULAR: No chest pain, orthopnea, PND, no palpitations, no syncope. PULMONARY: No shortness of breath, no cough, no hemoptysis. GASTROINTESTINAL: No diarrhea, no nausea, no vomiting, no abdominal pain. NEUROLOGICAL: No headaches, no weakness, no numbness. HEMATOLOGICAL: Denies any bleeding or petechiae. GENITOURINARY: Denies any burning micturition, frequency, or urgency. MUSCULOSKELETAL/RHEUMATOLOGICAL: Denies any joint pain, swelling, or any muscle pain. ENDOCRINE: Denies any polyuria or polydipsia. The rest of the 14-point review of systems is negative. PHYSICAL EXAMINATION: GENERAL: The patient is alert and oriented x3, not in any acute distress. Well developed, well nourished. HEENT: Pupils are round and equally reacting to light. EOMI. No scleral icterus. No conjunctival pallor. Normocephalic, atraumatic. No pharyngeal erythema. No thyromegaly. CARDIOVASCULAR: S1 and S2 present. No murmurs, rubs, or gallops. PULMONARY: Chest is clear to auscultation, no wheezing or crackles. ABDOMEN: Soft, nontender, nondistended, normoactive bowel sounds. No palpable organomegaly. MUSCULOSKELETAL: No joint swelling or deformity. EXTREMITIES: No cyanosis, clubbing, or pedal edema. NEUROLOGICAL: Gross neurological examination did not reveal any focal deficits. Patient has significant tremors at rest and with arms extended. SKIN: No rashes. small area of faint ecchymosis on upper left forehead, hairline. Assessment and Plan Assessment Acute alcohol intoxication and fall x 2 Acute alcohol withdrawal patient has tremors noted and continues on ativan CIWA protocol Black stool concern for upper GI bleed/alcoholic gastritis and patient is receiving IV protonix. Urinary retention Alcoholic hepatitis with elevated AST/ALT Hyperkalemia improved Chronic left lower extremity DVT anticoagulated with xarelto Hyperlipidemia Chronic peripheral edema/lymphedema maintained on oral diuretics Chronic alcoholism Former smoker Anxiety/Depression GI prophylaxis DVT prophylaxis on Xarelto Full Code Plan Continue ativan CIWA protocol IV fluids Recommend holding xarelto and repeat CBC General surgery consultation IV protonix BID Antiemetics and supportive care Clear liquid diet and monitoring for further episodes of black stool. Check hemeoccult Bladder scan Q6h Follow H&H. PT/OT consultation and patient is standby assist, high risk for fall and injury. The impression and plan of care has been dictated by Amita Nelson Nurse Practitioner as directed. Dr. Erin MD I have performed a history and physical examination and medical decision making of this patient, discussed the same with the dictator, and agree with the dictators assessment and plan as written, documented as a scribe. Based on total visit time, I have performed more than 50% of this visit. Past Medical History Past Medical History: Deep Vein Thrombosis (DVT), Hypertension Additional Past Medical History / Comment(s): concussion History of Any Multi-Drug Resistant Organisms: None Reported Past Surgical History: No Surgical Hx Reported Additional Past Surgical History / Comment(s): jaw surgery Past Anesthesia/Blood Transfusion Reactions: No Reported Reaction Past Psychological History: Anxiety, Depression Smoking Status: Former smoker Past Alcohol Use History: Abuse, Daily, Heavy Additional Past Alcohol Use History / Comment(s): states she drink a fifth of vodka daily for over a year. Past Drug Use History: None Reported - Past Family History Father Additional Family Medical History / Comment(s): Spleen CA Mother Family Medical History: COPD Additional Family Medical History / Comment(s): empysema Medications and Allergies Home Medications Medication Instructions Recorded Confirmed Type Rivaroxaban [Xarelto] 20 mg PO DAILY 30 Days tab 01/19/22 11/23/22 Rx Folic Acid 1 mg PO DAILY tab 03/19/22 11/23/22 Rx Multivitamins, Thera [Multivitamin 1 tab PO DAILY 04/19/22 11/23/22 History (formulary)] Atorvastatin [Lipitor] 20 mg PO HS 11/23/22 11/23/22 History Furosemide [Lasix] 40 mg PO DAILY 11/23/22 11/23/22 History Gabapentin 600 mg PO TID 11/23/22 11/23/22 History Liraglutide [Saxenda] 3 mg SQ DAILY 11/23/22 11/23/22 History Naltrexone Microspheres [Vivitrol] 380 mg IM Q28D 11/23/22 11/23/22 History Sodium Chloride 0.65% Nasal [Deep 2 spr EA NOSTRIL QID PRN 11/23/22 11/23/22 History Sea (Saline)] Thiamine [Vitamin B-1] 100 mg PO BID 11/23/22 11/23/22 History Venlafaxine HCl [Effexor XR] 225 mg PO DAILY 11/23/22 11/23/22 History traZODone HCL [Desyrel] 200 mg PO HS 11/23/22 11/23/22 History Allergies Allergy/AdvReac Type Severity Reaction Status Date / Time bacitracin Allergy Rash/Hives Verified 11/23/22 18:25 cephalexin [From Keflex] Allergy Itching Verified 11/23/22 18:25 Physical Exam Vitals: Vital Signs Temp Pulse Pulse Resp BP BP Pulse Ox 11/24/22 08:32 104 H 16 96/61 92 L 11/24/22 06:35 98.4 F 94 18 122/74 95 11/24/22 03:27 98.2 F 93 18 126/86 95 11/23/22 23:43 98.7 F 104 H 18 117/71 95 11/23/22 22:09 98.4 F 102 H 18 129/72 93 L 11/23/22 20:00 126/76 94 L 11/23/22 19:00 133/98 92 L 11/23/22 18:00 133/98 11/23/22 17:00 136/94 90 L 11/23/22 16:40 81 16 136/94 95 Intake and Output 11/23/22 11/24/22 11/24/22 22:59 06:59 14:59 Intake Total 118 Output Total 550 Balance -550 118 Intake: Oral 118 Output: Urine 550 Other: Voiding Method External Catheter # Voids 1 Weight 72.575 kg 110 kg Results CBC & Chem 7: 11/23/22 18:33 11/24/22 06:18 Labs: Abnormal Lab Results - Last 24 Hours (Table) 11/23/22 11/23/22 11/24/22 Range/Units 18:33 18:33 06:18 RDW 15.6 H (11.5-15.5) % Potassium 5.5 H (3.5-5.1) mmol/L Carbon Dioxide 20 L (22-30) mmol/L BUN 6 L 6 L (7-17) mg/dL Glucose 66 L (74-99) mg/dL Calcium 8.3 L 7.9 L (8.4-10.2) mg/dL AST 108 H (14-36) U/L ALT 47 H (4-34) U/L Serum Alcohol 535 H* mg/dL Thrombosis Risk Factor Assmnt - Choose All That Apply Any of the Below Risk Factors Present?: Yes Each Factor Represents 1 point: Age 41-60 years Thrombosis Risk Factor Assessment Total Risk Factor Score: 1 Thrombosis Risk Factor Assessment Level: Low Risk Assessment and Plan Time with Patient: Less than 30
[2022-11-24 15:52] LABS: Basophils % (A) 0 %; Eosinophils % (A) 0 %; HCT 35.9 % (34.0-46.0); HGB 11.4 gm/dL (11.4-16.0); Lymphocytes # (A) 0.6 k/uL (1.0-4.8); Lymphocytes % (A) 11 %; MCH 29.2 pg (25.0-35.0); MCHC 31.8 g/dL (31.0-37.0); MCV 91.9 fL (80.0-100.0); Mean Platelet Volume 7.6; Monocytes # (A) 0.3 k/uL (0-1.0); Monocytes % (A) 5 %; Neutrophils # (A) 4.3 k/uL (1.3-7.7); Neutrophils % (A) 83 %; Platelet Count 100 k/uL (150-450); RDW 15.5 % (11.5-15.5); WBC 5.1 k/uL (3.8-10.6)
[2022-11-24] MEDS: RIVAROXABAN 20 MG TAB PO SCH (17:51)
[2022-11-24] MEDS: PANTOPRAZOLE 40 MG/10 ML VIAL IVP SCH (20:34)
[2022-11-24] MEDS: ATORVASTATIN 20 MG TAB PO SCH (20:35)
[2022-11-24] MEDS ORDERED: traZODone HCL 100 MG TAB PO SCH (21:00)
[2022-11-25] MEDS: LORazepam 2 MG/ML INJ IV PRN ×7 (00:25→23:07)
[2022-11-25] MEDS: SODIUM CHLORIDE 0.9% 1,000 ML IV SCH ×3 (02:52→21:59)
[2022-11-25] MEDS: VENLAFAXINE HCL ER 75 MG CAP PO SCH (08:53)
[2022-11-25] MEDS: FOLIC ACID 1 MG TAB PO SCH (08:54)
[2022-11-25] MEDS: THIAMINE 100 MG TAB PO SCH ×2 (08:54→20:54)
[2022-11-25] MEDS: PANTOPRAZOLE 40 MG/10 ML VIAL IVP SCH (08:54)
[2022-11-25] MEDS: MULTIVITAMINS, THERA 1 EACH TAB PO SCH (08:54)
[2022-11-25 09:28] LABS: African American GFR (CKD) >90 (>60 ml/min/1.73 sqM); Anion Gap 14 mmol/L; Blood Urea Nitrogen 2 mg/dL (7-17); Calcium 8.7 mg/dL (8.4-10.2); Carbon Dioxide 22 mmol/L (22-30); Chloride 96 mmol/L (98-107); Glucose 93 mg/dL (74-99); Magnesium 1.6 mg/dL (1.6-2.3); Non-African American GFR(CKD) >90 (>60 ml/min/1.73 sqM); Potassium 3.9 mmol/L (3.5-5.1); Sodium 132 mmol/L (137-145)
[2022-11-25 09:32] LABS: Basophils % (A) 0 %; Eosinophils % (A) 1 %; HCT 35.7 % (34.0-46.0); HGB 11.8 gm/dL (11.4-16.0); Lymphocytes # (A) 0.6 k/uL (1.0-4.8); Lymphocytes % (A) 13 %; MCH 30.4 pg (25.0-35.0); MCHC 33.1 g/dL (31.0-37.0); MCV 92.1 fL (80.0-100.0); Mean Platelet Volume 9.4; Monocytes # (A) 0.2 k/uL (0-1.0); Monocytes % (A) 5 %; Neutrophils # (A) 3.8 k/uL (1.3-7.7); Neutrophils % (A) 80 %; RBC 3.88 m/uL (3.80-5.40); RDW 15.7 % (11.5-15.5); WBC 4.8 k/uL (3.8-10.6)
[2022-11-25 10:22] LABS: Platelet Count 79 k/uL (150-450)
[2022-11-25] MEDS: RIVAROXABAN 20 MG TAB PO SCH (11:50)
--- NOTE | 2022-11-25 14:02 | XR ---
EXAMINATION TYPE: XR chest 1V portable DATE OF EXAM: 11/25/2022 CLINICAL HISTORY: Difficulty breathing progress study. TECHNIQUE: Single AP portable upright view of the chest is obtained. COMPARISON: Chest x-ray from April 19, 2022 FINDINGS: Mild chronic parenchymal change without suspicious focal airspace opacity, pleural effusio n, or pneumothorax seen bilaterally. Cardiac silhouette size remains within normal limits. Overlying EKG leads are in current study. Nonspecific Sclerotic lesion left proximal humerus redemonstrated. IMPRESSION: No acute pulmonary process.
[2022-11-25] MEDS ORDERED: Magnesium Replacement Protocol 1 EACH MISC MISCELLANE PRN (14:24)
[2022-11-25] MEDS: MAGNESIUM SULFATE-D5W PMX 1 GM in DEXTROSE/WATER 1 100ML.BAG IVPB SCH (16:26)
[2022-11-25] MEDS ORDERED: HALOPERIDOL LACTATE 5 MG/ML 1 ML VIAL IM PRN (17:01)
--- NOTE | 2022-11-25 18:46 | P.PN ---
Subjective Progress Note Date: 11/25/22 This is a 57 year old female with medical history of hypertension, DVT, anxiety/depression, former smoker, and chronic daily alcohol abuse. Patient reports drinking 10 beers plus a fifth of vodka daily. Patient presents to the hospital after fall at home and initial work up reveals a blood alcohol content level of 535. Potassium was elevated at 5.5. AST/ALT are elevated. Patient is admitted for acute alcohol intoxication and monitoring for acute alcohol withdrawal. Patient does endorse a desire to quit drinking and has had multiple admission to rehabilitation centers. She reports that she just goes back to drinking. Patient does live by herself and does not have close family. 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 Patient was admitted to the medical floor and started on ativan CIWA protocol. She did have a fall over the night and hit her head. She does have a small faint area of ecchymosis in the hairline/left frontal lobe area. She had head and cervical spine CT negative for acute fracture or hemorrhage. Patient is maintained on xarelto for DVT. She does report to having some urinary leaking and found to have urinary retention on bladder scan. and noted to have diarrhea which nursing reports as almost black in color. Patient denies abdominal pain, no nausea or vomiting. 11/25/2022 Patient is evaluated today on medical floor. Patient is sitting up in the chair today and overall reports feeling better. Patient continues to have tremor with arms extended. Patient continues on IV ativan CIWA protocol and has received IV ativan every few hours throughout the night. She is currently alert x 3 at the time of evaluation. Had an episode of diarrhea yesterday which patient states she has not had any since. Hemoglobin has remained stable at 11.8, platelet count of 79 today. Sodium of 132. Patient has been continued on normal saline which will dc and encourage increased oral intake. Patient is tolerating diet. PHYSICAL EXAMINATION: GENERAL: The patient is alert and oriented x3, not in any acute distress. Well developed, well nourished. HEENT: Pupils are round and equally reacting to light. EOMI. No scleral icterus. No conjunctival pallor. Normocephalic, atraumatic. No pharyngeal erythema. No thyromegaly. CARDIOVASCULAR: S1 and S2 present. No murmurs, rubs, or gallops. PULMONARY: Chest is clear to auscultation, no wheezing or crackles. ABDOMEN: Soft, nontender, nondistended, normoactive bowel sounds. No palpable organomegaly. MUSCULOSKELETAL: No joint swelling or deformity. EXTREMITIES: No cyanosis, clubbing, or pedal edema. NEUROLOGICAL: Gross neurological examination did not reveal any focal deficits. Patient has significant tremors at rest and with arms extended. SKIN: No rashes. small area of faint ecchymosis on upper left forehead, hairline. Assessment and Plan Assessment Acute alcohol intoxication and fall x 2 patient did hit head Acute alcohol withdrawal patient has tremors noted and continues on ativan CIWA protocol Black stool concern for upper GI bleed/alcoholic gastritis no further episodes and hemoglobin has remained stable. Hemeoccult has been ordered. Thrombocytopenia likely from chronic alcoholism Urinary retention Alcoholic hepatitis with elevated AST/ALT Hyperkalemia improved Hypomagnesemia Chronic left lower extremity DVT anticoagulated with xarelto Hyperlipidemia Chronic peripheral edema/lymphedema maintained on oral diuretics Chronic alcoholism Former smoker Anxiety/Depression GI prophylaxis IV pepcid DVT prophylaxis on Xarelto Full Code Plan Continue ativan CIWA protocol Protonix will be changed to IV pepcid secondary to low platelet count Antiemetics and supportive care Check hemeoccult and monitor for dark stool hemoglobin is stable and no further reports of dark stool Continue diet Bladder scan Q6h post void residuals Check ammonia level and AM labs if liver enzymes remain elevated recommend abdominal ultrasound in the AM. PT/OT consultation and patient is standby assist, high risk for fall and injury. D/C to subacute rehab when stable The impression and plan of care has been dictated by Amita Nelson, Nurse Practitioner as directed. Dr. Erin MD I have performed a history and physical examination and medical decision making of this patient, discussed the same with the dictator, and agree with the dictators assessment and plan as written, documented as a scribe. Based on total visit time, I have performed more than 50% of this visit. Objective - Vital Signs Vital signs: Vital Signs Temp 98.2 F 11/25/22 12:00 Pulse 98 11/25/22 12:00 Resp 18 11/25/22 12:00 BP 149/97 11/25/22 12:00 Pulse Ox 93 L 11/25/22 12:00 FiO2 Intake & Output 11/24/22 11/25/22 11/25/22 18:59 06:59 18:59 Intake Total 354 Balance 354 Weight 109.3 kg Intake: Oral 354 Other: Voiding Method External Catheter # Voids 1 2 1 - Labs CBC & Chem 7: 11/25/22 07:42 11/25/22 07:42 Labs: Abnormal Lab Results - Last 24 Hours (Table) 11/24/22 11/25/22 11/25/22 Range/Units 15:09 07:42 07:42 RDW 15.7 H (11.5-15.5) % Plt Count 100 L 79 L (150-450) k/uL Lymphocytes # 0.6 L 0.6 L (1.0-4.8) k/uL Sodium 132 L (137-145) mmol/L Chloride 96 L (98-107) mmol/L BUN 2 L (7-17) mg/dL Creatinine 0.46 L (0.52-1.04) mg/dL Assessment and Plan Time with Patient: Less than 30
[2022-11-25] MEDS ORDERED: QUEtiapine 50 MG TAB PO PRN (19:09)
[2022-11-25] MEDS: LORazepam 2 MG/ML INJ IV SCH ×3 (20:10→21:58)
[2022-11-25 20:30] LABS: Glucose,Whole Blood 111 mg/dL (70-110)
--- NOTE | 2022-11-25 20:39 | CT ---
EXAMINATION TYPE: CT brain wo con DATE OF EXAM: 11/25/2022 COMPARISON: 11/23/2022 HISTORY: AMS CT DLP: 1186.4 mGycm Automated exposure control for dose reduction was used. Images obtained of the brain with no contrast. Ventricles have normal size. There is no mass effect or midline shift. No sign of intracranial hemorr theodore. The calvarium is intact. There is normal aeration of the mastoid sinuses. There is Small mucous retention cyst right maxillary sinus. IMPRESSION: Negative CT scan of the brain. No change.
[2022-11-25] MEDS: FAMOTIDINE 20 MG/2 ML VIAL IV SCH (20:54)
[2022-11-25] MEDS: ATORVASTATIN 20 MG TAB PO SCH (20:54)
[2022-11-26] MEDS: DEXMEDETOMIDINE/0.9% NACL(PMX) 400 MCG in EMPTY BAG 1 BAG IV SCH ×2 (00:42→03:17)
[2022-11-26 04:20] LABS: Appearance,Urine Clear (Clear); Bacteria,Urine Rare /hpf; Bilirubin,Urine Negative (Negative); Blood,Urine Small (Negative); Color,Urine Yellow; Glucose,Urine (UA) Negative (Negative); Ketones,Urine 2+ (Negative); Leukocyte Esterase,Urine Small (Negative); Mucus,Urine Rare /hpf; Nitrite,Urine Negative (Negative); PH, Urine 7.5 (5.0-8.0); Protein,Urine Negative (Negative); RBC,Urine 6 /hpf (0-5); Specific Gravity,Urine 1.013 (1.001-1.035); WBC,Urine 15 /hpf (0-5)
[2022-11-26 07:02] LABS: Basophils % (A) 0 %; Eosinophils # (A) 0.1 k/uL (0-0.7); Eosinophils % (A) 4 %; HCT 36.3 % (34.0-46.0); HGB 11.7 gm/dL (11.4-16.0); Lymphocytes # (A) 0.6 k/uL (1.0-4.8); Lymphocytes % (A) 20 %; MCH 29.5 pg (25.0-35.0); MCHC 32.2 g/dL (31.0-37.0); MCV 91.7 fL (80.0-100.0); Mean Platelet Volume 8.9; Monocytes # (A) 0.2 k/uL (0-1.0); Monocytes % (A) 5 %; Neutrophils # (A) 2.2 k/uL (1.3-7.7); Neutrophils % (A) 69 %; RBC 3.96 m/uL (3.80-5.40); RDW 15.6 % (11.5-15.5); WBC 3.2 k/uL (3.8-10.6)
[2022-11-26 07:03] LABS: Platelet Count 72 k/uL (150-450)
[2022-11-26 07:29] LABS: ALT 48 U/L (4-34); AST 58 U/L (14-36); African American GFR (CKD) >90 (>60 ml/min/1.73 sqM); Albumin 3.2 g/dL (3.5-5.0); Alkaline Phosphatase 52 U/L (38-126); Anion Gap 5 mmol/L; Bilirubin, Delta 0.3 mg/dL (0.0-0.2); Bilirubin,Unconjugated 1.3 mg/dL (0.0-1.1); Blood Urea Nitrogen 4 mg/dL (7-17); Calcium 8.3 mg/dL (8.4-10.2); Carbon Dioxide 29 mmol/L (22-30); Chloride 98 mmol/L (98-107); Glucose 119 mg/dL (74-99); Magnesium 1.9 mg/dL (1.6-2.3); Non-African American GFR(CKD) >90 (>60 ml/min/1.73 sqM); Potassium 3.5 mmol/L (3.5-5.1); Sodium 132 mmol/L (137-145); Total Bilirubin 1.6 mg/dL (0.2-1.3); Total Protein 5.3 g/dL (6.3-8.2)
[2022-11-26] MEDS: FOLIC ACID 1 MG TAB PO SCH (08:33)
[2022-11-26] MEDS: MULTIVITAMINS, THERA 1 EACH TAB PO SCH (08:34)
[2022-11-26] MEDS: THIAMINE 100 MG TAB PO SCH ×2 (08:34→21:01)
[2022-11-26] MEDS: VENLAFAXINE HCL ER 75 MG CAP PO SCH (08:34)
[2022-11-26] MEDS: LORazepam 2 MG/ML INJ IV PRN ×7 (08:34→23:32)
[2022-11-26] MEDS: RIVAROXABAN 20 MG TAB PO SCH (09:00)
[2022-11-26] MEDS: SODIUM CHLORIDE 0.9% 1,000 ML IV SCH (13:07)
--- NOTE | 2022-11-26 13:13 | P.CNPUL ---
History of Present Illness Consult date: 11/26/22 Requesting physician: Gladys Persaud Reason for consult: other (Acute alcohol withdrawal) Chief complaint: Status post fall at home and alcohol intoxication History of present illness: This is a 57-year-old female with history of multiple medical problems including hypertension, former smoker, alcoholism, chronic and daily use of alcohol, patient drinks on the average of 10 beers a day plus a fifth of vodka.. Patient fell at home, and she was brought into the hospital after her fall. There was a concern about head injury or cervical spine injury, however the workup was negative. Alcohol level on admission was 535. The patient was initially admitted to regular medical floor, however she was exhibiting signs of withdrawal extreme agitation, and could not be properly managed on the floor, hence I was notified about this patient, and recommended that she remains on the CIWA protocol, and I added Precedex to this patient upon arrival to the ICU. Saw this patient this morning, patient seems to be calm, appropriate, not in any distress. Nonetheless the patient is on Precedex at 0.2 mcg/kg/h, she is also receiving Ativan as per the CIWA protocol, and her IV fluid at 75 mL per hour. Basic metabolic profile is normal renal profile is normal CBC is relatively normal, ammonia level is 10. Liver enzymes are borderline elevated. Review of Systems CONSTITUTIONAL: Negative. HEENT: Negative CARDIOVASCULAR: Negative PULMONARY: Negative GASTROINTESTINAL: Negative. NEUROLOGICAL: Negative HEMATOLOGICAL: Negative. Patient is maintained on Xarelto for previous history of DVT. GENITOURINARY: Negative. MUSCULOSKELETAL/RHEUMATOLOGICAL: Negative. ENDOCRINE: Negative. Past Medical History Past Medical History: Deep Vein Thrombosis (DVT), Hypertension Additional Past Medical History / Comment(s): concussion History of Any Multi-Drug Resistant Organisms: None Reported Past Surgical History: No Surgical Hx Reported Additional Past Surgical History / Comment(s): jaw surgery Past Anesthesia/Blood Transfusion Reactions: No Reported Reaction Past Psychological History: Anxiety, Depression Smoking Status: Former smoker Past Alcohol Use History: Abuse, Daily, Heavy Additional Past Alcohol Use History / Comment(s): states she drink a fifth of vodka daily for over a year. Past Drug Use History: None Reported - Past Family History Father Additional Family Medical History / Comment(s): Spleen CA Mother Family Medical History: COPD Additional Family Medical History / Comment(s): empysema Medications and Allergies Home Medications Medication Instructions Recorded Confirmed Type Rivaroxaban [Xarelto] 20 mg PO DAILY 30 Days tab 01/19/22 11/23/22 Rx Folic Acid 1 mg PO DAILY tab 03/19/22 11/23/22 Rx Multivitamins, Thera [Multivitamin 1 tab PO DAILY 04/19/22 11/23/22 History (formulary)] Atorvastatin [Lipitor] 20 mg PO HS 11/23/22 11/23/22 History Furosemide [Lasix] 40 mg PO DAILY 11/23/22 11/23/22 History Gabapentin 600 mg PO TID 11/23/22 11/23/22 History Liraglutide [Saxenda] 3 mg SQ DAILY 11/23/22 11/23/22 History Naltrexone Microspheres [Vivitrol] 380 mg IM Q28D 11/23/22 11/23/22 History Sodium Chloride 0.65% Nasal [Deep 2 spr EA NOSTRIL QID PRN 11/23/22 11/23/22 History Sea (Saline)] Thiamine [Vitamin B-1] 100 mg PO BID 11/23/22 11/23/22 History Venlafaxine HCl [Effexor XR] 225 mg PO DAILY 11/23/22 11/23/22 History traZODone HCL [Desyrel] 200 mg PO HS 11/23/22 11/23/22 History Allergies Allergy/AdvReac Type Severity Reaction Status Date / Time bacitracin Allergy Rash/Hives Verified 11/23/22 18:25 cephalexin [From Keflex] Allergy Itching Verified 11/23/22 18:25 Physical Exam Vitals: Vital Signs Temp Pulse Pulse Pulse Resp BP BP 11/26/22 12:00 98.4 F 95 32 H 131/94 11/26/22 11:00 103 H 21 11/26/22 10:00 101 H 33 H 139/97 11/26/22 09:00 94 28 H 128/92 11/26/22 08:20 11/26/22 08:00 98.3 F 82 22 120/90 11/26/22 07:00 74 29 H 108/70 11/26/22 06:00 87 28 H 110/78 11/26/22 05:00 77 28 H 115/79 11/26/22 04:00 97.9 F 80 32 H 117/82 03/16/23 03:48 82 21 11/26/22 03:00 80 24 117/83 11/26/22 02:00 87 30 H 126/86 11/26/22 01:00 23 126/86 11/26/22 00:00 98.4 F 120 H 22 145/110 11/25/22 23:00 107 H 151/110 11/25/22 22:21 112 H 24 11/25/22 20:06 98.4 F 108 H 18 157/90 11/25/22 14:00 98 18 Pulse Ox 11/26/22 12:00 95 11/26/22 11:00 92 L 11/26/22 10:00 91 L 11/26/22 09:00 93 L 11/26/22 08:20 94 L 11/26/22 08:00 91 L 11/26/22 07:00 95 11/26/22 06:00 92 L 11/26/22 05:00 95 11/26/22 04:00 95 11/26/22 03:48 11/26/22 03:00 96 11/26/22 02:00 95 11/26/22 01:00 11/26/22 00:00 11/25/22 23:00 11/25/22 22:21 11/25/22 20:06 94 L 11/25/22 14:00 Intake and Output 11/25/22 11/26/22 11/26/22 22:59 06:59 14:59 Intake Total 325 742.860 450 Output Total 1060 645 805 Balance -735 97.860 -355 Intake: IV 450 Sodium Chloride 0.9% 1, 450 000 ml @ 75 mls/hr IV . [id number] [facility] Rx#:[id number] Intake, IV Titration 75 742.860 Amount Dexmedetomidine/0.9% NaCl 67.860 (Pmx) 400 mcg In Empty Bag 1 bag @ 0.2 MCG/KG/HR 5.465 mls/hr IV .[id number] [facility] Rx#:[id number] Sodium Chloride 0.9% 1, 75 675 000 ml @ 75 mls/hr IV . [id number] [facility] Rx#:[id number] Oral 250 Output: Urine 1060 645 805 Uretheral (Martinez) 850 Other: Voiding Method Indwelling Catheter Indwelling Catheter Indwelling Catheter # Bowel Movements 1 Weight 109.4 kg Physical Exam: Revealed a 57-year-old female in no distress. On room air. Head: Atraumatic, normocephalic. HEENT:[Neck is supple.] [No neck masses.] [No thyromegaly.] [No JVD.] Chest: [Clear throughout, no crackles, no rhonchi, no wheezes.] Cardiac Exam: [Normal S1 and S2, no S3 gallop, no murmur.] Abdomen: [Soft, nontender, no megaly, no rebound, no guarding, normal bowel sounds.] Extremities: [No clubbing, no edema, no cyanosis.] Neurological Exam: [No focal neurologic deficit.] Alert oriented 3 Psychiatric: Normal mood, flat affect, normal mental status examination. Skin: Small area of ecchymosis on upper left forehead otherwise unremarkable Results - Laboratory Findings CBC and BMP: 11/26/22 05:50 11/26/22 06:04 Abnormal lab findings: Abnormal Labs 11/23/22 11/23/22 11/24/22 18:33 18:33 06:18 WBC RDW 15.6 H Plt Count Lymphocytes # Sodium Potassium 5.5 H Chloride Carbon Dioxide 20 L BUN 6 L 6 L Creatinine Glucose 66 L POC Glucose (mg/dL) Calcium 8.3 L 7.9 L Total Bilirubin Unconjugated Bilirubin Delta Bilirubin AST 108 H ALT 47 H Total Protein Albumin Urine Ketones Urine Blood Ur Leukocyte Esterase Urine RBC Urine WBC Urine Bacteria Urine Mucus Serum Alcohol 535 H* 11/24/22 11/25/22 11/25/22 15:09 04:08 07:42 WBC RDW 15.7 H Plt Count 100 L 79 L Lymphocytes # 0.6 L 0.6 L Sodium Potassium Chloride Carbon Dioxide BUN Creatinine Glucose POC Glucose (mg/dL) Calcium Total Bilirubin Unconjugated Bilirubin Delta Bilirubin AST ALT Total Protein Albumin Urine Ketones 2+ H Urine Blood Small H Ur Leukocyte Esterase Small H Urine RBC 6 H Urine WBC 15 H Urine Bacteria Rare H Urine Mucus Rare H Serum Alcohol 11/25/22 11/25/22 11/26/22 07:42 20:29 05:50 WBC 3.2 L RDW 15.6 H Plt Count 72 L Lymphocytes # 0.6 L Sodium 132 L Potassium Chloride 96 L Carbon Dioxide BUN 2 L Creatinine 0.46 L Glucose POC Glucose (mg/dL) 111 H Calcium Total Bilirubin Unconjugated Bilirubin Delta Bilirubin AST ALT Total Protein Albumin Urine Ketones Urine Blood Ur Leukocyte Esterase Urine RBC Urine WBC Urine Bacteria Urine Mucus Serum Alcohol 11/26/22 06:04 WBC RDW Plt Count Lymphocytes # Sodium 132 L Potassium Chloride Carbon Dioxide BUN 4 L Creatinine 0.46 L Glucose 119 H POC Glucose (mg/dL) Calcium 8.3 L Total Bilirubin 1.6 H Unconjugated Bilirubin 1.3 H Delta Bilirubin 0.3 H AST 58 H ALT 48 H Total Protein 5.3 L Albumin 3.2 L Urine Ketones Urine Blood Ur Leukocyte Esterase Urine RBC Urine WBC Urine Bacteria Urine Mucus Serum Alcohol - Diagnostic Findings Chest x-ray: image reviewed (Chest x-ray showed no evidence of active disease.) Additional studies: Had cervical spine CT and brain CT were unremarkable. Assessment and Plan Assessment: Impression: Acute alcohol intoxication and fall secondary to alcohol intoxication Acute alcohol withdrawal requiring transfer to ICU, and CIWA protocol, and Precedex drip. Acute alcoholic hepatitis History of left lower extremity DVT, maintained on Xarelto Dyslipidemia Chronic alcoholism Former smoker black stools, suspect erosive gastritis. Recommendation: Continue to monitor in the ICU for now. Continue Precedex. Continue CIWA protocol. Continue Protonix. Twice a day. Continue to monitor daily labs including CBC and basic metabolic profile Advanced diet as tolerated Check Hemoccult stool will continue to follow Time with Patient: Greater than 30
--- NOTE | 2022-11-26 16:48 | P.PN ---
Subjective This is a 57 year old female with medical history of hypertension, DVT, anxiety/depression, former smoker, and chronic daily alcohol abuse. Patient reports drinking 10 beers plus a fifth of vodka daily. Patient presents to the hospital after fall at home and initial work up reveals a blood alcohol content level of 535. Potassium was elevated at 5.5. AST/ALT are elevated. Patient is admitted for acute alcohol intoxication and monitoring for acute alcohol withdrawal. Patient does endorse a desire to quit drinking and has had multiple admission to rehabilitation centers. She reports that she just goes back to drinking. Patient does live by herself and does not have close family. 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 Patient was admitted to the medical floor and started on ativan CIWA protocol. She did have a fall over the night and hit her head. She does have a small faint area of ecchymosis in the hairline/left frontal lobe area. She had head and cervical spine CT negative for acute fracture or hemorrhage. Patient is maintained on xarelto for DVT. She does report to having some urinary leaking and found to have urinary retention on bladder scan. and noted to have diarrhea which nursing reports as almost black in color. Patient denies abdominal pain, no nausea or vomiting. 11/25/2022 Patient is evaluated today on medical floor. Patient is sitting up in the chair today and overall reports feeling better. Patient continues to have tremor with arms extended. Patient continues on IV ativan CIWA protocol and has received IV ativan every few hours throughout the night. She is currently alert x 3 at the time of evaluation. Had an episode of diarrhea yesterday which patient states she has not had any since. Hemoglobin has remained stable at 11.8, platelet count of 79 today. Sodium of 132. Patient has been continued on normal saline which will dc and encourage increased oral intake. Patient is tolerating diet. 11/26/2022 Patient admitted to the ICU yesterday because of delirium tremens given worsening her mentation and requiring high doses of CIWA protocol medication, her CI WA score yesterday was 25 when she was transferred to the ICU, currently her CIWA scores ranging between 6-14, she was on Precedex drip in the morning with the plan to taper it off She does not need any restraint today and she looks calm lethargic she is confused mumbles when she is asked while she follows simple commands for example opening her mouth or shorter tongue. As per staff patient is able to eat but has no appetite Patient herself denies any specific symptoms or pain. Martinez catheter is in a Place No reports of hematemesis or vomiting of blood today Objective - Vital Signs Vital signs: Vital Signs Temp 98.3 F 11/26/22 08:00 Pulse 101 H 11/26/22 10:00 Resp 33 H 11/26/22 10:00 BP 139/97 11/26/22 10:00 Pulse Ox 91 L 11/26/22 10:00 FiO2 Intake & Output 11/25/22 11/26/22 11/26/22 18:59 06:59 18:59 Intake Total 1067.860 225 Output Total 1705 625 Balance -637.140 -400 Weight 109.3 kg 109.4 kg Intake: IV 225 Sodium Chloride 0.9% 1, 225 000 ml @ 75 mls/hr IV . [id number] [facility] Rx#:[id number] Intake, IV Titration 817.860 Amount Dexmedetomidine/0.9% NaCl 67.860 (Pmx) 400 mcg In Empty Bag 1 bag @ 0.2 MCG/KG/HR 5.465 mls/hr IV .[id number] [facility] Rx#:[id number] Sodium Chloride 0.9% 1, 750 000 ml @ 75 mls/hr IV . [id number] [facility] Rx#:[id number] Oral 250 Output: Urine 1705 625 Uretheral (Martinez) 850 Other: Voiding Method Indwelling Catheter Indwelling Catheter # Voids 1 # Bowel Movements 1 - Exam -GENERAL: The patient is confused sleepy and lethargic, follow simple commands and mumbles to answers, not in any acute distress. Well developed, well nourished. HEENT: Pupils are round and equally reacting to light. EOMI. No scleral icterus. No conjunctival pallor. Normocephalic, atraumatic. No pharyngeal erythema. No thyromegaly. CARDIOVASCULAR: S1 and S2 present. No murmurs, rubs, or gallops. PULMONARY: Chest is clear to auscultation, no wheezing or crackles. -ABDOMEN: Soft, nontender, nondistended, normoactive bowel sounds. No palpable organomegaly. Martinez catheter in a Place MUSCULOSKELETAL: No joint swelling or deformity. EXTREMITIES: No cyanosis, clubbing, or pedal edema. NEUROLOGICAL: Gross neurological examination did not reveal any focal deficits. SKIN: No rashes. no petechiae. - Labs CBC & Chem 7: 11/26/22 05:50 11/26/22 06:04 Labs: Abnormal Lab Results - Last 24 Hours (Table) 11/25/22 11/25/22 11/26/22 Range/Units 04:08 20:29 05:50 WBC 3.2 L (3.8-10.6) k/uL RDW 15.6 H (11.5-15.5) % Plt Count 72 L (150-450) k/uL Lymphocytes # 0.6 L (1.0-4.8) k/uL Sodium (137-145) mmol/L BUN (7-17) mg/dL Creatinine (0.52-1.04) mg/dL Glucose (74-99) mg/dL POC Glucose (mg/dL) 111 H (70-110) mg/dL Calcium (8.4-10.2) mg/dL Total Bilirubin (0.2-1.3) mg/dL Unconjugated Bilirubin (0.0-1.1) mg/dL Delta Bilirubin (0.0-0.2) mg/dL AST (14-36) U/L ALT (4-34) U/L Total Protein (6.3-8.2) g/dL Albumin (3.5-5.0) g/dL Urine Ketones 2+ H (Negative) Urine Blood Small H (Negative) Ur Leukocyte Esterase Small H (Negative) Urine RBC 6 H (0-5) /hpf Urine WBC 15 H (0-5) /hpf Urine Bacteria Rare H (None) /hpf Urine Mucus Rare H (None) /hpf 11/26/22 Range/Units 06:04 WBC (3.8-10.6) k/uL RDW (11.5-15.5) % Plt Count (150-450) k/uL Lymphocytes # (1.0-4.8) k/uL Sodium 132 L (137-145) mmol/L BUN 4 L (7-17) mg/dL Creatinine 0.46 L (0.52-1.04) mg/dL Glucose 119 H (74-99) mg/dL POC Glucose (mg/dL) (70-110) mg/dL Calcium 8.3 L (8.4-10.2) mg/dL Total Bilirubin 1.6 H (0.2-1.3) mg/dL Unconjugated Bilirubin 1.3 H (0.0-1.1) mg/dL Delta Bilirubin 0.3 H (0.0-0.2) mg/dL AST 58 H (14-36) U/L ALT 48 H (4-34) U/L Total Protein 5.3 L (6.3-8.2) g/dL Albumin 3.2 L (3.5-5.0) g/dL Urine Ketones (Negative) Urine Blood (Negative) Ur Leukocyte Esterase (Negative) Urine RBC (0-5) /hpf Urine WBC (0-5) /hpf Urine Bacteria (None) /hpf Urine Mucus (None) /hpf Microbiology - Last 24 Hours (Table) 11/25/22 04:08 Urine Culture - Preliminary Urine,Voided Assessment and Plan Assessment: Severe delirium tremens Acute alcohol intoxication and fall x 2 patient did hit head Acute alcohol withdrawal patient has tremors noted and continues on ativan CIWA protocol Black stool concern for upper GI bleed/alcoholic gastritis no further episodes a nd hemoglobin has remaine in the normal range . Hemeoccult has been ordered. Thrombocytopenia likely from chronic alcoholism Urinary retention Alcoholic hepatitis with elevated AST/ALT Hyperkalemia improved Hypomagnesemia Chronic left lower extremity DVT anticoagulated with xarelto Hyperlipidemia Chronic peripheral edema/lymphedema maintained on oral diuretics Chronic alcoholism Former smoker Anxiety/Depression Plan: Continue with Precedex per ICU/critical care team are following the patient closely Continue with CIWA protocol with a mean Continue monitor hemoglobin Continue with Pepcid Patient is already on Xarelto MONITOR vitals and liver enzymes. Labs and medication were reviewed.. Continue same treatment. Continue with symptomatic treatment. Resume home medication. Monitor labs and vitals. DVT and GI prophylaxis. Further recommendations as per clinical course of the patient DVT prophylaxis: Xarelto GI Prophylaxis: Pepcid Prognosis is guarded
[2022-11-26] MEDS: ATORVASTATIN 20 MG TAB PO SCH (21:01)
[2022-11-26] MEDS: FAMOTIDINE 20 MG/2 ML VIAL IV SCH (21:01)
[2022-11-27 02:50] LABS: Glucose,Whole Blood 109 mg/dL (70-110)
[2022-11-27 05:59] LABS: Basophils % (A) 0 %; Eosinophils # (A) 0.1 k/uL (0-0.7); Eosinophils % (A) 3 %; HCT 34.9 % (34.0-46.0); HGB 11.2 gm/dL (11.4-16.0); Lymphocytes # (A) 0.7 k/uL (1.0-4.8); Lymphocytes % (A) 14 %; MCH 30.7 pg (25.0-35.0); MCHC 32.1 g/dL (31.0-37.0); MCV 95.8 fL (80.0-100.0); Mean Platelet Volume 8.3; Monocytes # (A) 0.3 k/uL (0-1.0); Monocytes % (A) 6 %; Neutrophils # (A) 3.8 k/uL (1.3-7.7); Neutrophils % (A) 75 %; RBC 3.64 m/uL (3.80-5.40); RDW 15.4 % (11.5-15.5)
[2022-11-27 06:07] LABS: Platelet Count 86 k/uL (150-450)
[2022-11-27 06:19] LABS: African American GFR (CKD) >90 (>60 ml/min/1.73 sqM); Anion Gap 9 mmol/L; Blood Urea Nitrogen 5 mg/dL (7-17); Calcium 8.3 mg/dL (8.4-10.2); Carbon Dioxide 25 mmol/L (22-30); Chloride 99 mmol/L (98-107); Glucose 97 mg/dL (74-99); Magnesium 1.7 mg/dL (1.6-2.3); Non-African American GFR(CKD) >90 (>60 ml/min/1.73 sqM); Potassium 3.1 mmol/L (3.5-5.1); Sodium 133 mmol/L (137-145)
[2022-11-27] MEDS ORDERED: Potassium Replacement Protocol 1 EACH MISC MISCELLANE PRN (08:46)
[2022-11-27] MEDS ORDERED: MAGNESIUM SULFATE-D5W PMX 1 GM in DEXTROSE/WATER 1 100ML.BAG IVPB ONE (08:46)
[2022-11-27] MEDS: SODIUM CHLORIDE 0.9% 1,000 ML IV SCH ×2 (08:49→17:34)
[2022-11-27] MEDS: FOLIC ACID 1 MG TAB PO SCH (09:25)
[2022-11-27] MEDS: MULTIVITAMINS, THERA 1 EACH TAB PO SCH (09:25)
[2022-11-27] MEDS: FAMOTIDINE 20 MG/2 ML VIAL IV SCH ×2 (09:25→20:02)
[2022-11-27] MEDS: THIAMINE 100 MG TAB PO SCH ×2 (09:25→20:02)
[2022-11-27] MEDS: POTASSIUM CHLORIDE 10 MEQ in WATER FOR INJECTION 1 100ML.BAG IVPB SCH ×4 (09:25→16:48)
[2022-11-27] MEDS: RIVAROXABAN 20 MG TAB PO SCH (09:28)
[2022-11-27] MEDS: VENLAFAXINE HCL ER 75 MG CAP PO SCH (09:28)
--- NOTE | 2022-11-27 13:00 | P.PN ---
Subjective Progress Note Date: 11/27/22 Principal diagnosis: Acute alcohol intoxication and Acute alcohol withdrawal This is a 57-year-old female with history of multiple medical problems including hypertension, former smoker, alcoholism, chronic and daily use of alcohol, patient drinks on the average of 10 beers a day plus a fifth of vodka.. Patient fell at home, and she was brought into the hospital after her fall. There was a concern about head injury or cervical spine injury, however the workup was negative. Alcohol level on admission was 535. The patient was initially admitted to regular medical floor, however she was exhibiting signs of withdrawal extreme agitation, and could not be properly managed on the floor, hence I was notified about this patient, and recommended that she remains on the CIWA protocol, and I added Precedex to this patient upon arrival to the ICU. Saw this patient this morning, patient seems to be calm, appropriate, not in any distress. Nonetheless the patient is on Precedex at 0.2 mcg/kg/h, she is also receiving Ativan as per the CIWA protocol, and her IV fluid at 75 mL per hour. Basic metabolic profile is normal renal profile is normal CBC is relatively normal, ammonia level is 10. Liver enzymes are borderline elevated. Reevaluated today on 04/29/2023, patient is doing well, remains in the ICU, relatively asymptomatic, her symptoms of alcohol withdrawal seems to be better controlled with Seroquel and Librium. Hence I will transfer the patient out of the ICU to regular medical floor, and she could be managed by the admitting physician. No need for further follow-up in the ICU. Labs today are basically unremarkable including normal CBC and normal electrolytes except for a slightly low potassium being corrected as per protocol Objective - Vital Signs Vital signs: Vital Signs Temp 98.1 F 11/27/22 08:00 Pulse 102 H 11/27/22 11:00 Resp 19 11/27/22 11:00 BP 130/94 11/27/22 11:00 Pulse Ox 96 11/27/22 12:00 FiO2 Intake & Output 11/26/22 11/27/22 11/27/22 18:59 06:59 18:59 Intake Total 530.042 1836 475 Output Total 995 690 255 Balance -47.546 335 220 Weight 104.1 kg Intake: IV 900 825 475 Potassium Chloride 10 meq 100 In Water For Injection 1 100ml.bag @ 100 mls/hr IVPB Q1HR [facility] Rx#: [id number] Sodium Chloride 0.9% 1, 675 000 ml @ 75 mls/hr IV . [id number] [facility] Rx#:[id number] Sodium Chloride 0.9% 1, 225 825 375 000 ml @ 75 mls/hr IV . [id number] [facility] Rx#:[id number] Intake, IV Titration 47.454 Amount Dexmedetomidine/0.9% NaCl 47.454 (Pmx) 400 mcg In Empty Bag 1 bag @ 0.2 MCG/KG/HR 5.465 mls/hr IV .[id number] [facility] Rx#:[id number] Oral 200 Output: Urine 995 690 255 Other: Voiding Method Indwelling Catheter Indwelling Catheter Indwelling Catheter - Exam Physical Exam: Revealed a 57-year-old female in no distress. On 2 L nasal cannula Head: Atraumatic, normocephalic. HEENT:[Neck is supple.] [No neck masses.] [No thyromegaly.] [No JVD.] Chest: [Clear throughout, no crackles, no rhonchi, no wheezes.] Cardiac Exam: [Normal S1 and S2, no S3 gallop, no murmur.] Abdomen: [Soft, nontender, no megaly, no rebound, no guarding, normal bowel sounds.] Extremities: [No clubbing, no edema, no cyanosis.] Neurological Exam: [No focal neurologic deficit.] Alert oriented 3 Psychiatric: Normal mood, flat affect, normal mental status examination. Skin: Small area of ecchymosis on upper left forehead otherwise unremarkable - Labs CBC & Chem 7: 11/27/22 05:33 11/27/22 05:33 Labs: Abnormal Lab Results - Last 24 Hours (Table) 11/27/22 11/27/22 Range/Units 05:33 05:33 RBC 3.64 L (3.80-5.40) m/uL Hgb 11.2 L (11.4-16.0) gm/dL Plt Count 86 L (150-450) k/uL Lymphocytes # 0.7 L (1.0-4.8) k/uL Sodium 133 L (137-145) mmol/L Potassium 3.1 L (3.5-5.1) mmol/L BUN 5 L (7-17) mg/dL Creatinine 0.48 L (0.52-1.04) mg/dL Calcium 8.3 L (8.4-10.2) mg/dL Microbiology - Last 24 Hours (Table) 11/25/22 04:08 Urine Culture - Final Urine,Voided Assessment and Plan Assessment: Impression: Acute alcohol intoxication and fall secondary to alcohol intoxication Acute alcohol withdrawal requiring transfer to ICU, patient required Precedex drip, presently off Precedex and doing well with Librium and with Seroquel as ordered by the admitting physician Acute alcoholic hepatitis History of left lower extremity DVT, maintained on Xarelto Dyslipidemia Chronic alcoholism Former smoker black stools, suspect erosive gastritis. Recommendation: Transfer patient out of the ICU to regular medical floor Continue Protonix. We will see the patient on when necessary basis Management as per the admitting physician Time with Patient: Less than 30
[2022-11-27] MEDS: ATORVASTATIN 20 MG TAB PO SCH (20:03)
[2022-11-28] MEDS: VENLAFAXINE HCL ER 75 MG CAP PO SCH (07:23)
[2022-11-28] MEDS: MULTIVITAMINS, THERA 1 EACH TAB PO SCH (07:23)
[2022-11-28] MEDS: FOLIC ACID 1 MG TAB PO SCH (07:24)
[2022-11-28] MEDS: RIVAROXABAN 20 MG TAB PO SCH (07:24)
[2022-11-28] MEDS: THIAMINE 100 MG TAB PO SCH ×2 (07:24→19:59)
[2022-11-28] MEDS: FAMOTIDINE 20 MG/2 ML VIAL IV SCH ×2 (07:50→20:53)
--- NOTE | 2022-11-28 19:45 | P.PN ---
Subjective Progress Note Date: 11/27/22 57 year old female with medical history of hypertension, DVT, anxiety/depression, former smoker, and chronic daily alcohol abuse. Patient reports drinking 10 beers plus a fifth of vodka daily. Patient presents to the hospital after fall at home and initial work up reveals a blood alcohol content level of 535. Potassium was elevated at 5.5. AST/ALT are elevated. Patient is admitted for acute alcohol intoxication and monitoring for acute alcohol withdrawal. Patient does endorse a desire to quit drinking and has had multiple admission to rehabilitation centers. She reports that she just goes back to [employer]. Patient does live by herself and does not have close family. 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 Patient was admitted to the medical floor and started on ativan CIWA protocol. She did have a fall over the night and hit her head. She does have a small faint area of ecchymosis in the hairline/left frontal lobe area. She had head and cervical spine CT negative for acute fracture or hemorrhage. Patient is maintained on xarelto for DVT. She does report to having some urinary leaking and found to have urinary retention on bladder scan. and noted to have diarrhea which nursing reports as almost black in color. Patient denies abdominal pain, no nausea or vomiting. Objective - Vital Signs Vital signs: Vital Signs Temp 97.9 F 11/27/22 12:00 Pulse 100 11/27/22 14:00 Resp 21 11/27/22 14:00 BP 136/99 11/27/22 14:00 Pulse Ox 96 11/27/22 14:00 FiO2 Intake & Output 11/26/22 11/27/22 11/27/22 18:59 06:59 18:59 Intake Total 133.901 9095 825 Output Total 995 690 395 Balance -47.546 335 430 Weight 104.1 kg Intake: IV 900 825 825 Potassium Chloride 10 meq 300 In Water For Injection 1 100ml.bag @ 100 mls/hr IVPB Q1HR [facility] Rx#: [id number] Sodium Chloride 0.9% 1, 675 000 ml @ 75 mls/hr IV . [id number] [facility] Rx#:[id number] Sodium Chloride 0.9% 1, 225 825 525 000 ml @ 75 mls/hr IV . [id number] [facility] Rx#:[id number] Intake, IV Titration 47.454 Amount Dexmedetomidine/0.9% NaCl 47.454 (Pmx) 400 mcg In Empty Bag 1 bag @ 0.2 MCG/KG/HR 5.465 mls/hr IV .[id number] [facility] Rx#:[id number] Oral 200 Output: Urine 995 690 395 Other: Voiding Method Indwelling Catheter Indwelling Catheter Indwelling Catheter - Exam -GENERAL: The patient is confused sleepy and lethargic, follow simple commands and mumbles to answers, not in any acute distress. Well developed, well nourished. HEENT: Pupils are round and equally reacting to light. EOMI. No scleral icterus. No conjunctival pallor. Normocephalic, atraumatic. No pharyngeal erythema. No thyromegaly. CARDIOVASCULAR: S1 and S2 present. No murmurs, rubs, or gallops. PULMONARY: Chest is clear to auscultation, no wheezing or crackles. -ABDOMEN: Soft, nontender, nondistended, normoactive bowel sounds. No palpable o rganomegaly. Martinez catheter in a Place MUSCULOSKELETAL: No joint swelling or deformity. EXTREMITIES: No cyanosis, clubbing, or pedal edema. NEUROLOGICAL: Gross neurological examination did not reveal any focal deficits. SKIN: No rashes. no petechiae. - Labs CBC & Chem 7: 11/27/22 05:33 11/27/22 05:33 Labs: Abnormal Lab Results - Last 24 Hours (Table) 11/27/22 11/27/22 Range/Units 05:33 05:33 RBC 3.64 L (3.80-5.40) m/uL Hgb 11.2 L (11.4-16.0) gm/dL Plt Count 86 L (150-450) k/uL Lymphocytes # 0.7 L (1.0-4.8) k/uL Sodium 133 L (137-145) mmol/L Potassium 3.1 L (3.5-5.1) mmol/L BUN 5 L (7-17) mg/dL Creatinine 0.48 L (0.52-1.04) mg/dL Calcium 8.3 L (8.4-10.2) mg/dL Microbiology - Last 24 Hours (Table) 11/25/22 04:08 Urine Culture - Final Urine,Voided Assessment and Plan Assessment: Severe delirium tremens Acute alcohol intoxication and fall x 2 patient did hit head Acute alcohol withdrawal patient has tremors noted and continues on ativan CIWA protocol Black stool concern for upper GI bleed/alcoholic gastritis no further episodes and hemoglobin has remaine in the normal range . Hemeoccult has been ordered. Thrombocytopenia likely from chronic alcoholism Urinary retention Alcoholic hepatitis with elevated AST/ALT Hyperkalemia improved Hypomagnesemia Chronic left lower extremity DVT anticoagulated with xarelto Hyperlipidemia Chronic peripheral edema/lymphedema maintained on oral diuretics Chronic alcoholism Former smoker Anxiety/Depression Plan: Continue with Precedex per ICU/critical care team are following the patient closely Continue with CIWA protocol with a mean Continue monitor hemoglobin Continue with Pepcid Patient is already on Xarelto MONITOR vitals and liver enzymes. Labs and medication were reviewed.. Continue same treatment. Continue with symptomatic treatment. Resume home medication. Monitor labs and vitals. DVT and GI prophylaxis. Further recommendations as per clinical course of the patient DVT prophylaxis: Xarelto
--- NOTE | 2022-11-28 19:47 | P.PN ---
Subjective Progress Note Date: 11/28/22 57 year old female with medical history of hypertension, DVT, anxiety/depression, former smoker, and chronic daily alcohol abuse. Patient reports drinking 10 beers plus a fifth of vodka daily. Patient presents to the hospital after fall at home and initial work up reveals a blood alcohol content level of 535. Potassium was elevated at 5.5. AST/ALT are elevated. Patient is admitted for acute alcohol intoxication and monitoring for acute alcohol withdrawal. Patient does endorse a desire to quit drinking and has had multiple admission to rehabilitation centers. She reports that she just goes back to [email or web address]. Patient does live by herself and does not have close family. 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 Patient was admitted to the medical floor and started on ativan CIWA protocol. She did have a fall over the night and hit her head. She does have a small faint area of ecchymosis in the hairline/left frontal lobe area. She had head and cervical spine CT negative for acute fracture or hemorrhage. Patient is maintained on xarelto for DVT. She does report to having some urinary leaking and found to have urinary retention on bladder scan. and noted to have diarrhea which nursing reports as almost black in color. Patient denies abdominal pain, no nausea or vomiting. 11/28/2022 Patient is seen and evaluated at bedside on medical floor; has been ambulating in the room but remains somewhat unsteady -- Patient has been evaluated by physical therapy and is recommended home with home health care versus subacute rehabilitation She does not need any restraint today and she looks calm lethargic she is confused mumbles when she is asked while she follows simple commands for example opening her mouth or shorter tongue. As per staff patient is able to eat but has no appetite Patient herself denies any specific symptoms or pain. Martinez catheter is in a Place No reports of hematemesis or vomiting of blood today -- Patient has been ambulating in the room; not quite sure about discharge home with home care versus subacute rehab - Possible discharge in next 24-48 hours Objective - Vital Signs Vital signs: Vital Signs Temp 97.6 F 11/28/22 07:25 Pulse 96 11/28/22 07:50 Resp 16 11/28/22 07:50 BP 163/111 11/28/22 07:25 Pulse Ox 94 L 11/28/22 08:18 FiO2 Intake & Output 11/27/22 11/28/22 11/28/22 18:59 06:59 18:59 Intake Total 1125 Output Total 595 Balance 530 Intake: IV 1125 Potassium Chloride 10 meq 300 In Water For Injection 1 100ml.bag @ 100 mls/hr IVPB Q1HR [facility] Rx#: [id number] Sodium Chloride 0.9% 1, 825 000 ml @ 75 mls/hr IV . [id number] [facility] Rx#:[id number] Output: Urine 595 Other: Voiding Method Indwelling Catheter Toilet Toilet # Voids 2 1 - Labs CBC & Chem 7: 11/27/22 05:33 11/27/22 05:33 Labs: Microbiology - Last 24 Hours (Table) 11/25/22 04:08 Urine Culture - Final Urine,Voided
[2022-11-28] MEDS: ATORVASTATIN 20 MG TAB PO SCH (19:59)
[2022-11-28] MEDS: SODIUM CHLORIDE 0.9% 1,000 ML IV SCH ×2 (20:51→20:53)
[2022-11-29] MEDS: SODIUM CHLORIDE 0.9% 1,000 ML IV SCH ×2 (05:51→20:13)
[2022-11-29] MEDS: FAMOTIDINE 20 MG/2 ML VIAL IV SCH ×2 (07:48→20:16)
[2022-11-29] MEDS: THIAMINE 100 MG TAB PO SCH ×2 (08:33→20:16)
[2022-11-29] MEDS: VENLAFAXINE HCL ER 75 MG CAP PO SCH (08:33)
[2022-11-29] MEDS: FOLIC ACID 1 MG TAB PO SCH (08:33)
[2022-11-29] MEDS: RIVAROXABAN 20 MG TAB PO SCH (08:33)
[2022-11-29] MEDS: MULTIVITAMINS, THERA 1 EACH TAB PO SCH (08:33)
[2022-11-29 09:47] LABS: African American GFR (CKD) 113.9 (60.0-200.0); Anion Gap 8.4 mmol/L (10.00-18.00); Calcium 9.1 mg/dL (8.7-10.3); Carbon Dioxide 28.2 mmol/L (20.0-27.5); Non-African American GFR(CKD) 98.2 (60.0-200.0); Potassium 3.6 mmol/L (3.5-5.5)
[2022-11-29 09:48] LABS: Basophils # (A) 0.01 X 10*3/uL (0.00-0.10); Basophils % (A) 0.3 %; Eosinophils # (A) 0.11 X 10*3/uL (0.04-0.35); Eosinophils % (A) 2.9 %; HCT 33.3 % (37.2-46.3); HGB 10.7 g/dL (12.0-15.0); Immature Grans, Automated 0.5 %; Lymphocytes # (A) 0.67 X 10*3/uL (0.90-5.00); Lymphocytes % (A) 17.4 %; MCH 29.7 pg (27.0-32.0); MCHC 32.1 g/dL (32.0-37.0); MCV 92.5 fL (80.0-97.0); Mean Platelet Volume 10.5 fL (9.5-12.2); Monocytes % (A) 18.2 %; NRBC Per 100 WBC 0 /100 WBCS (0.0-0.0); Neutrophils # (A) 2.33 X 10*3/uL (1.80-7.70); Neutrophils % (A) 60.7 %; Platelet Count 115 X 10*3/uL (140-440); RDW 15.9 % (11.5-14.5); WBC 3.84 X 10*3/uL (4.50-10.00)
--- NOTE | 2022-11-29 19:24 | P.PN ---
Subjective Progress Note Date: 11/29/22 57 year old female with medical history of hypertension, DVT, anxiety/depression, former smoker, and chronic daily alcohol abuse. Patient reports drinking 10 beers plus a fifth of vodka daily. Patient presents to the hospital after fall at home and initial work up reveals a blood alcohol content level of 535. Potassium was elevated at 5.5. AST/ALT are elevated. Patient is admitted for acute alcohol intoxication and monitoring for acute alcohol withdrawal. Patient does endorse a desire to quit drinking and has had multiple admission to rehabilitation centers. She reports that she just goes back to [employer]. Patient does live by herself and does not have close family. 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 Patient was admitted to the medical floor and started on ativan CIWA protocol. She did have a fall over the night and hit her head. She does have a small faint area of ecchymosis in the hairline/left frontal lobe area. She had head and cervical spine CT negative for acute fracture or hemorrhage. Patient is maintained on xarelto for DVT. She does report to having some urinary leaking and found to have urinary retention on bladder scan. and noted to have diarrhea which nursing reports as almost black in color. Patient denies abdominal pain, no nausea or vomiting. 11/28/2022 Patient is seen and evaluated at bedside on medical floor; has been ambulating in the room but remains somewhat unsteady -- Patient has been evaluated by physical therapy and is recommended home with home health care versus subacute rehabilitation She does not need any restraint today and she looks calm lethargic she is confused mumbles when she is asked while she follows simple commands for example opening her mouth or shorter tongue. As per staff patient is able to eat but has no appetite Patient herself denies any specific symptoms or pain. Martinez catheter is in a Place No reports of hematemesis or vomiting of blood today -- Patient has been ambulating in the room; not quite sure about discharge home with home care versus subacute rehab - Possible discharge in next 24-48 hours 11/29/2022; -- Patient has been ambulating in the room and to the bathroom; continues to lose balance and is recommended walker to be discharged home with -- Discharge instructions were completed and Med[facility] was done; patient however cannot have medical equipment arranged and delivered to home upon discharge - Patient stable to discharge home once arrangements are made for her equipment to be delivered Objective - Vital Signs Vital signs: Vital Signs Temp 98.2 F 11/29/22 07:28 Pulse 81 11/29/22 07:48 Resp 16 11/29/22 07:48 BP 131/79 11/29/22 07:28 Pulse Ox 94 L 11/29/22 07:58 FiO2 Intake & Output 11/28/22 11/29/22 11/29/22 18:59 06:59 18:59 Intake Total 776 Balance 776 Intake: Oral 776 Other: Voiding Method Toilet Toilet Toilet # Voids 2 2 # Bowel Movements 0 - Exam -GENERAL: The patient is confused sleepy and lethargic, follow simple commands and mumbles to answers, not in any acute distress. Well developed, well nourished. HEENT: Pupils are round and equally reacting to light. EOMI. No scleral icterus. No conjunctival pallor. Normocephalic, atraumatic. No pharyngeal erythema. No thyromegaly. CARDIOVASCULAR: S1 and S2 present. No murmurs, rubs, or gallops. PULMONARY: Chest is clear to auscultation, no wheezing or crackles. -ABDOMEN: Soft, nontender, nondistended, normoactive bowel sounds. No palpable organomegaly. Martinez catheter in a Place MUSCULOSKELETAL: No joint swelling or deformity. EXTREMITIES: No cyanosis, clubbing, or pedal edema. NEUROLOGICAL: Gross neurological examination did not reveal any focal deficits. SKIN: No rashes. no petechiae. - Labs CBC & Chem 7: 11/29/22 05:27 11/29/22 05:27 Labs: Abnormal Lab Results - Last 24 Hours (Table) 11/29/22 11/29/22 Range/Units 05:27 05:27 WBC 3.84 L (4.50-10.00) X 10*3/uL RBC 3.60 L (4.10-5.20) X 10*6/uL Hgb 10.7 L (12.0-15.0) g/dL Hct 33.3 L (37.2-46.3) % RDW 15.9 H (11.5-14.5) % Plt Count 115 L (140-440) X 10*3/uL Lymphocytes # 0.67 L (0.90-5.00) X 10*3/uL Carbon Dioxide 28.2 H (20.0-27.5) mmol/L Anion Gap 8.40 L (10.00-18.00) mmol/L BUN 5.0 L (9.0-27.0) mg/dL BUN/Creatinine Ratio 8.00 L (12.00-20.00) Ratio Assessment and Plan Assessment: Severe delirium tremens Acute alcohol intoxication and fall x 2 patient did hit head Acute alcohol withdrawal patient has tremors noted and continues on ativan CIWA protocol Black stool concern for upper GI bleed/alcoholic gastritis no further episodes and hemoglobin has remaine in the normal range . Hemeoccult has been ordered. Thrombocytopenia likely from chronic alcoholism Urinary retention Alcoholic hepatitis with elevated AST/ALT Hyperkalemia improved Hypomagnesemia Chronic left lower extremity DVT anticoagulated with xarelto Hyperlipidemia Chronic peripheral edema/lymphedema maintained on oral diuretics Chronic alcoholism Former smoker Anxiety/Depression Plan: Continue with Precedex per ICU/critical care team are following the patient closely Continue with CIWA protocol with a mean Continue monitor hemoglobin Continue with Pepcid Patient is already on Xarelto MONITOR vitals and liver enzymes. Labs and medication were reviewed.. Continue same treatment. Continue with symptomatic treatment. Resume home medication. Monitor labs and vitals. DVT and GI prophylaxis. Further recommendations as per clinical course of the patient DVT prophylaxis: Xarelto
[2022-11-29] MEDS: ATORVASTATIN 20 MG TAB PO SCH (20:16)
[2022-11-30] MEDS: THIAMINE 100 MG TAB PO SCH (09:22)
[2022-11-30] MEDS: VENLAFAXINE HCL ER 75 MG CAP PO SCH (09:22)
[2022-11-30] MEDS: FOLIC ACID 1 MG TAB PO SCH (09:22)
[2022-11-30] MEDS: MULTIVITAMINS, THERA 1 EACH TAB PO SCH (09:22)
[2022-11-30] MEDS: FAMOTIDINE 20 MG/2 ML VIAL IV SCH (09:22)
[2022-11-30] MEDS: RIVAROXABAN 20 MG TAB PO SCH (09:22)
[2022-11-30 11:50] VITALS: BMI 31.1
[2022-11-30 13:58] VITALS: BP 142/91; PULSE 89; RESP 18; TEMP 98.8
[2022-11-30 14:38] LABS: Basophils # (A) 0.01 X 10*3/uL (0.00-0.10); Basophils % (A) 0.3 %; Eosinophils # (A) 0.12 X 10*3/uL (0.04-0.35); Eosinophils % (A) 3.7 %; HCT 34.7 % (37.2-46.3); HGB 10.9 g/dL (12.0-15.0); Immature Grans, Automated 0.6 %; Lymphocytes # (A) 0.85 X 10*3/uL (0.90-5.00); Lymphocytes % (A) 26.3 %; MCH 29.1 pg (27.0-32.0); MCHC 31.4 g/dL (32.0-37.0); MCV 92.8 fL (80.0-97.0); Mean Platelet Volume 10.3 fL (9.5-12.2); Monocytes # (A) 0.71 X 10*3/uL (0.20-1.00); NRBC Per 100 WBC 0 /100 WBCS (0.0-0.0); Neutrophils # (A) 1.52 X 10*3/uL (1.80-7.70); Neutrophils % (A) 47.1 %; Platelet Count 144 X 10*3/uL (140-440); RBC 3.74 X 10*6/uL (4.10-5.20); RDW 16.1 % (11.5-14.5); WBC 3.23 X 10*3/uL (4.50-10.00)
[2022-11-30 14:49] LABS: Magnesium 1.9 mg/dL (1.5-2.4); Potassium 4.1 mmol/L (3.5-5.5)
--- NOTE | 2022-11-30 21:29 | P.DS ---
Providers Date of admission: 11/23/22 21:08 Attending physician: Gladys Persaud Consults: 11/25/22 19:12 Consult Physician Routine Consulting Provider: Edgardo Camara Consult Reason/Comments: ICU management Do you want consulting provider notified?: Yes Primary care physician: Constantine [facility] Course: Diagnoses: Severe delirium tremens, completely resolved and patient back to baseline Acute alcohol intoxication and fall x 2 patient did hit head Mild normochromic normocytic anemia, Hemoglobin is stable with no evidence of GI bleed Thrombocytopenia likely from chronic alcoholism , back to normal Urinary retention. This old Alcoholic hepatitis with elevated AST/ALT, improving significantly Hyperkalemia improved Hypomagnesemia, improved Chronic left lower extremity DVT anticoagulated with xarelto , not in active tissue Hyperlipidemia Chronic peripheral edema/lymphedema maintained on oral diuretics, not in active tissue Chronic alcoholism Former smoker Anxiety/Depression Hospital course: This is a pleasant 57 year old female with medical history of hypertension, DVT, anxiety/depression, former smoker, and chronic daily alcohol abuse. Patient reports drinking 10 beers plus a fifth of vodka daily. Patient presents to the hospital after fall at home and initial work up reveals a blood alcohol content level of 535. Patient admitted to the general medical floor and eventually needed to be placed in the intensive care unit for severe alcohol withdrawal and agreement tremens and she was treated with Precedex. Patient improved and stabilized and sent to the medical floor. This morning she was fully awake and oriented, place person and time, she has insight to her illness, follows commands appropriately and answer logically. Mentation is normal. She is relaxed pleasant, she denies any other symptoms, she denies headache dizziness weakness numbness, no change in urine or bowel habits, no fever. 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 Appetite is good. Also patient denies any signs and symptoms of depression, hopelessness, help the stents, no hallucination or delusions I counseled her about quitting alcohol and she agrees. This morning patient was eager to go home and I checked with her again and after she confirmed to me again she wants to go home today as she feels normal. Problems and management plan were discussed with the patient and he verbalized understanding and acceptance Patient was found stable and can be discharged home in guarded prognosis however he needs follow-up as an outpatient. Patient was instructed to follow up with PCP within one week and patient agrees Patient states that she does not need any prescription upon discharge including Xarelto Physical exam Gen: patient is a AAOx3, no distress CVS: S1-S2, RRR, no murmur Lungs: B/L CTA, no wheezing Abdomen: soft, no distention, no tenderness, positive bowel sounds Extremity: no leg edema or induration Time spent more than 35 minutes Plan - Discharge Summary Discharge Rx Participant: No New Discharge Prescriptions: New QUEtiapine [SEROquel] 50 mg PO HS PRN 30 Days #30 tab PRN Reason: Agitation Or Acute Psychosis Continue Rivaroxaban [Xarelto] 20 mg PO DAILY 30 Days tab Folic Acid 1 mg PO DAILY tab Multivitamins, Thera [Multivitamin (formulary)] 1 tab PO DAILY Gabapentin 600 mg PO TID Furosemide [Lasix] 40 mg PO DAILY Thiamine [Vitamin B-1] 100 mg PO BID Sodium Chloride 0.65% Nasal [Deep Sea (Saline)] 2 spr EA NOSTRIL QID PRN PRN Reason: Allergy Symptoms Liraglutide [Saxenda] 3 mg SQ DAILY Atorvastatin [Lipitor] 20 mg PO HS traZODone HCL [Desyrel] 200 mg PO HS Naltrexone Microspheres [Vivitrol] 380 mg IM Q28D Venlafaxine HCl [Effexor XR] 225 mg PO DAILY Discharge Medication List Rivaroxaban [Xarelto] 20 mg PO DAILY 30 Days tab 01/19/22 [Rx] Folic Acid 1 mg PO DAILY tab 03/19/22 [Rx] Multivitamins, Thera [Multivitamin (formulary)] 1 tab PO DAILY 04/19/22 [History] Atorvastatin [Lipitor] 20 mg PO HS 11/23/22 [History] Furosemide [Lasix] 40 mg PO DAILY 11/23/22 [History] Gabapentin 600 mg PO TID 11/23/22 [History] Liraglutide [Saxenda] 3 mg SQ DAILY 11/23/22 [History] Naltrexone Microspheres [Vivitrol] 380 mg IM Q28D 11/23/22 [History] Sodium Chloride 0.65% Nasal [Deep Sea (Saline)] 2 spr EA NOSTRIL QID PRN 11/23/22 [History] Thiamine [Vitamin B-1] 100 mg PO BID 11/23/22 [History] Venlafaxine HCl [Effexor XR] 225 mg PO DAILY 11/23/22 [History] traZODone HCL [Desyrel] 200 mg PO HS 11/23/22 [History] QUEtiapine [SEROquel] 50 mg PO HS PRN 30 Days #30 tab 11/29/22 [Rx] Follow up Appointment(s)/Referral(s): Constantine Figueroa DO [Primary Care Provider] - 1-2 days (Office closed at time of discharge. Please call for appointment.) Activity/Diet/Wound Care/Special Instructions: heart heathy diet activity is restricted till you see your doctor Discharge/Stand Alone Forms: AA Tejinder Kohli, Outpatient Counseling, In Substance Abuse Facilities Discharge Disposition: HOME WITH HOME HEALTH SERVICES
== END 2022-11-30 17:32 | disposition home health service (06) | DRG 775 ==
LOC: EC 16:33 → SUPCPDRO 16:33 → 3SCARD 21:08 → 2SICU 11-25 20:12 → 4SSUR 11-27 19:29
PROVIDERS: ADMIT Internal Medicine; ATTEND Internal Medicine
DX: F10.231 Alcohol dependence with withdrawal delirium (principal); F10.229 Alcohol dependence with intoxication, unspecified; K70.10 Alcoholic hepatitis without ascites; Y90.8 Blood alcohol level of 240 mg/100 ml or more; D69.59 Other secondary thrombocytopenia; E78.5 Hyperlipidemia, unspecified; E83.42 Hypomagnesemia; E87.5 Hyperkalemia; F32.A Depression, unspecified; F41.9 Anxiety disorder, unspecified; K29.00 Acute gastritis without bleeding; R33.9 Retention of urine, unspecified; I10 Essential (primary) hypertension; W01.0XXA Fall on same level from slipping, tripping and stumbling without subsequent striking against object, initial encounter; Y92.009 Unspecified place in unspecified non-institutional (private) residence as the place of occurrence of the external cause; R51.9 Headache, unspecified; Z79.01 Long term (current) use of anticoagulants; Z79.899 Other long term (current) drug therapy; Z86.718 Personal history of other venous thrombosis and embolism; Z78.1 Physical restraint status; Z71.3 Dietary counseling and surveillance; Z88.1 Allergy status to other antibiotic agents; Z60.2 Problems related to living alone; Z87.891 Personal history of nicotine dependence
CPT/HCPCS: 36415; 70450; 71045; 72125; 80048; 80053; 80320; 81001; 82075; 82140; 82248; 83735; 84132; 85025; 87086; 94760; 96372; 96374; 99285

== ENCOUNTER 2023-01-08 19:27 | Emergency (ER) | payer OTHER ==
[2023-01-08 19:37] VITALS: RESP 20; TEMP 98.5
[2023-01-08] MEDS ORDERED: PANTOPRAZOLE 40 MG/10 ML VIAL IVP STA (20:01)
[2023-01-08 20:11] LABS: Basophils % (A) 0 %; Eosinophils # (A) 0.1 k/uL (0-0.7); Eosinophils % (A) 1 %; HCT 35.6 % (34.0-46.0); HGB 12.1 gm/dL (11.4-16.0); Lymphocytes # (A) 0.8 k/uL (1.0-4.8); Lymphocytes % (A) 14 %; MCHC 34.1 g/dL (31.0-37.0); Mean Platelet Volume 8.5; Monocytes # (A) 0.4 k/uL (0-1.0); Monocytes % (A) 7 %; Neutrophils # (A) 4.2 k/uL (1.3-7.7); Neutrophils % (A) 75 %; RBC 3.91 m/uL (3.80-5.40); WBC 5.6 k/uL (3.8-10.6)
[2023-01-08 20:24] LABS: African American GFR (CKD) >90 (>60 ml/min/1.73 sqM); Anion Gap 18 mmol/L; Blood Urea Nitrogen 14 mg/dL (7-17); Calcium 8.6 mg/dL (8.4-10.2); Carbon Dioxide 24 mmol/L (22-30); Chloride 90 mmol/L (98-107); Glucose 144 mg/dL (74-99); Lipase 650 U/L (23-300); Magnesium 1.8 mg/dL (1.6-2.3); Non-African American GFR(CKD) >90 (>60 ml/min/1.73 sqM); Potassium 3.6 mmol/L (3.5-5.1); Sodium 132 mmol/L (137-145)
--- NOTE | 2023-01-08 20:24 | ED ---
General Adult HPI - General Chief complaint: Upper Respiratory Infection Stated complaint: Flu Time Seen by Provider: 01/08/23 19:32 Source: patient Mode of arrival: EMS - History of Present Illness Initial comments: Dictation was produced using [employer] dictation software. please excuse any grammatical, word or spelling errors. Chief Complaint: 57-year-old alcoholic female presents to the ER for chest pain History of Present Illness: 57-year-old female presents emergency department for chest pain. Patient states she's been having chest pain mostly today. She denies any abdominal pain. Patient states she's been having dark stools for several weeks. Just prior to arrival she's been having coffee-ground emesis. He states the chest pain is sharp. Not worse with deep inspiration non- radiating associated with diaphoresis or nausea. Patient has no history of varices. She denies any abdominal pain. Has never suggest specialist is. She had lots of liquor prior to coming to the ER. Light of shortness of breath to the nurse however did not mention any shortness of breath to me. Patient takes Xarelto for DVT/PE prophylaxis. The ROS documented in this emergency department record has been reviewed and confirmed by me. Those systems with pertinent positive or negative responses have been documented in the HPI. All other systems are other negative and/or noncontributory. - Related Data Home Medications Medication Instructions Recorded Confirmed Multivitamins, Thera [Multivitamin 1 tab PO DAILY 04/19/22 11/23/22 (formulary)] Atorvastatin [Lipitor] 20 mg PO HS 11/23/22 11/23/22 Furosemide [Lasix] 40 mg PO DAILY 11/23/22 11/23/22 Gabapentin 600 mg PO TID 11/23/22 11/23/22 Liraglutide [Saxenda] 3 mg SQ DAILY 11/23/22 11/23/22 Naltrexone Microspheres [Vivitrol] 380 mg IM Q28D 11/23/22 11/23/22 Sodium Chloride 0.65% Nasal [Deep 2 spr EA NOSTRIL QID PRN 11/23/22 11/23/22 Sea (Saline)] Thiamine [Vitamin B-1] 100 mg PO BID 11/23/22 11/23/22 Venlafaxine HCl [Effexor XR] 225 mg PO DAILY 11/23/22 11/23/22 traZODone HCL [Desyrel] 200 mg PO HS 11/23/22 11/23/22 Previous Rx's Medication Instructions Recorded Rivaroxaban [Xarelto] 20 mg PO DAILY 30 Days tab 01/19/22 Folic Acid 1 mg PO DAILY tab 03/19/22 QUEtiapine [SEROquel] 50 mg PO HS PRN 30 Days #30 tab 11/29/22 Allergies Allergy/AdvReac Type Severity Reaction Status Date / Time bacitracin Allergy Rash/Hives Verified 11/23/22 18:25 cephalexin [From Keflex] Allergy Itching Verified 11/23/22 18:25 Review of Systems ROS Statement: Those systems with pertinent positive or pertinent negative responses have been documented in the HPI. ROS Other: All systems not noted in ROS Statement are negative. Past Medical History Past Medical History: Deep Vein Thrombosis (DVT), Hypertension Additional Past Medical History / Comment(s): concussion History of Any Multi-Drug Resistant Organisms: None Reported Past Surgical History: No Surgical Hx Reported Additional Past Surgical History / Comment(s): jaw surgery Past Anesthesia/Blood Transfusion Reactions: No Reported Reaction Past Psychological History: Anxiety, Depression Smoking Status: Former smoker Past Alcohol Use History: Abuse, Daily, Heavy Past Drug Use History: None Reported - Past Family History Father Additional Family Medical History / Comment(s): Spleen CA Mother Family Medical History: COPD Additional Family Medical History / Comment(s): empysema General Exam - General Exam Comments Initial Comments: PHYSICAL EXAM: General Impression: Alert and oriented x3, not in acute distress HEENT: Normocephalic atraumatic, extra-ocular movements intact, pupils equal and reactive to light bilaterally, mucous membranes moist. Cardiovascular: Heart regular rate and rhythm Chest: Able to complete full sentences, no retractions, no tachypnea Abdomen: abdomen soft, non-tender, non-distended, no organomegaly Musculoskeletal: Pulses present and equal in all extremities, no peripheral edema Motor: no focal deficits noted Neurological: CN II-XII grossly intact, no focal motor or sensory deficits noted Skin: Intact with no visualized rashes Psych: Normal affect and mood Course Vital Signs 01/08/23 01/08/23 19:33 20:52 Temperature 98.5 F Pulse Rate 111 H 112 H Respiratory 20 20 Rate Blood Pressure 112/86 120/85 O2 Sat by Pulse 94 L 95 Oximetry EKG Findings - EKG Comments: EKG Findings:: My EKG interpretation: Ventricular rate 105, sinus tachycardia, WA interval 1:30, QRS 104, QTC 43. No WA prolongation, no QTC prolongation, no ST or T-wave changes noted. Overall, this EKG is unremarkable Medical Decision Making - Medical Decision Making Was pt. sent in by a medical professional or institution (, PA, PROFESSOR OF THEATER, urgent care, hospital, or prison...) When possible be specific @ -No Did you speak to anyone other than the patient for history (EMS, parent, family, police, friend...)? What history was obtained from this source @ -No Did you review nursing and triage notes (agree or disagree)? Why? @ -I reviewed and agree with nursing and triage notes Were old charts reviewed (outside hosp., previous admission, EMS record, old EKG, old radiological studies, urgent care reports/EKG's, prison records)? Report findings @ -No old charts were reviewed Differential Diagnosis (chest pain, altered mental status, abdominal pain women, abdominal pain men, vaginal bleeding, musculoskeletal, weakness, fever, dyspnea, syncope, headache, dizziness, GI bleed, back pain, seizure, CVA, palpatations, mental health)? @ -Differential Chest Pain: Stable Angina, Unstable Angina, STEMI, NSTEMI Aortic Dissection, Pneumothorax, Musculoskeletal, Esophageal Spasm GERD, Cholecystitis, Pancreatitis, Zoster, this is not meant to be an all-inclusive list. Differential GI Bleed: Esophageal varices, aortoenteric fistula, Summer-Ambriz, gastritis, peptic ulcer disease, diverticulosis, inflammatory bowel disease, hemorrhoids, fissure, colitis, malignancy, Meckels diverticulum, this is not meant to be an all-inclu sive list. EKG interpreted by me (3pts min.). @ -My EKG interpretation: Ventricular rate 105, sinus tachycardia, WA interval 1:30, QRS 104, QTC 403. No WA prolongation, no QTC prolongation, no ST or T-wave changes noted. Compared to EKG from 04/19/2022 shows no changes. Overall, this EKG is unremarkable X-rays interpreted by me (1pt min.). @ -X-ray is unremarkable. CT interpreted by me (1pt min.). @ -None done U/S interpreted by me (1pt. min.). @ -None done What testing was considered but not performed or refused? (CT, X-rays, U/S, labs)? Why? @ -None What meds were considered but not given or refused? Why? @ -None Did you discuss the management of the patient with other professionals (professionals i.e. , PA, PROFESSOR OF THEATER, lab, RT, psych nurse, social insurance administrator, toll collector supervisor, teacher, sheriff officer, director of casework)? Give summary @ -Discussed with Dr. Cuevas who is ER physician Soila Martinez was willing to accept patient for ER to ER transfer. Patient presentation was explained. Was smoking cessation discussed for >3mins.? @ -No Was critical care preformed (if so, how long)? @ -33 minutes Were there social determinants of health that impacted care today? How? (Homelessness, low income, unemployed, alcoholism, drug addiction, golden sportation, low edu. Level, literacy, decrease access to med. care, intermediate, rehab)? @ -Alcoholism Was there de-escalation of care discussed even if they declined (Discuss DNR or withdrawal of care, Hospice)? DNR status @ -No What co-morbidities impacted this encounter? (DM, HTN, Smoking, COPD, CAD, Cancer, CVA, ARF, Chemo, Hep., AIDS, mental health diagnosis, sleep apnea, morbid obesity)? @ -History of anticoagulation use Was patient admitted / discharged? Hospital course, mention meds given and route, prescriptions, significant lab abnormalities, going to OR and other pertinent info. @ -57-year-old female presents to the ER for initial complaint of chest pain. She did begin to mention that she was having symptoms of GI bleed. Patient on anticoagulation with coffee-ground emesis and black stools. Patient is high risk. Her labs do appear to be stable. She is mildly tachycardic. Hemoglobin is 12.1. Patient given Protonix. Stool occult was positive. Alcohol level was 413. We do not have gastroenterology available. Patient will require transfer Undiagnosed new problem with uncertain prognosis? @ -No Drug Therapy requiring intensive monitoring for toxicity (Heparin, Nitro, Insulin, Cardizem)? @ -No Were any procedures done? @ -No Diagnosis/symptom? Acute, or Chronic, or Acute on Chronic? Uncomplicated (with out systemic symptoms) or Complicated (systemic symptoms)? @ -1. Acute GI bleed with high-risk features, 2. Atypical chest pain typical features Side effects of treatment? @ -No Exacerbation, Progression, or Severe Exacerbation? @ -No Poses a threat to life or bodily function? How? (Chest pain, USA, CT, pneumonia, PE, COPD, DKA, ARF, appy, cholecystitis, CVA, Diverticulitis, Homicidal, Suicidal, threat to staff... and all critical care pts) @ -yes - Lab Data Result diagrams: 01/08/23 20:00 01/08/23 20:00 Lab Results 01/08/23 01/08/23 01/08/23 Range/Units 20:00 20:00 20:00 WBC 5.6 (3.8-10.6) k/uL RBC 3.91 (3.80-5.40) m/uL Hgb 12.1 (11.4-16.0) gm/dL Hct 35.6 (34.0-46.0) % MCV 91.0 (80.0-100.0) fL MCH 31.0 (25.0-35.0) pg MCHC 34.1 (31.0-37.0) g/dL RDW 15.0 (11.5-15.5) % Plt Count 130 L D (150-450) k/uL MPV 8.5 Neutrophils % 75 % Lymphocytes % 14 % Monocytes % 7 % Eosinophils % 1 % Basophils % 0 % Neutrophils # 4.2 (1.3-7.7) k/uL Lymphocytes # 0.8 L (1.0-4.8) k/uL Monocytes # 0.4 (0-1.0) k/uL Eosinophils # 0.1 (0-0.7) k/uL Basophils # 0.0 (0-0.2) k/uL Sodium 132 L (137-145) mmol/L Potassium 3.6 (3.5-5.1) mmol/L Chloride 90 L (98-107) mmol/L Carbon Dioxide 24 (22-30) mmol/L Anion Gap 18 mmol/L BUN 14 (7-17) mg/dL Creatinine 0.71 (0.52-1.04) mg/dL Est GFR (CKD-EPI)AfAm >90 (>60 ml/min/1.73 sqM) Est GFR (CKD-EPI)NonAf >90 (>60 ml/min/1.73 sqM) Glucose 144 H (74-99) mg/dL Calcium 8.6 (8.4-10.2) mg/dL Magnesium 1.8 (1.6-2.3) mg/dL Troponin I 0.012 (0.000-0.034) ng/mL Lipase 650 H (23-300) U/L Stool Occult Blood (Negative) Serum Alcohol 413 H* mg/dL 01/08/23 Range/Units 20:05 WBC (3.8-10.6) k/uL RBC (3.80-5.40) m/uL Hgb (11.4-16.0) gm/dL Hct (34.0-46.0) % MCV (80.0-100.0) fL MCH (25.0-35.0) pg MCHC (31.0-37.0) g/dL RDW (11.5-15.5) % Plt Count (150-450) k/uL MPV Neutrophils % % Lymphocytes % % Monocytes % % Eosinophils % % Basophils % % Neutrophils # (1.3-7.7) k/uL Lymphocytes # (1.0-4.8) k/uL Monocytes # (0-1.0) k/uL Eosinophils # (0-0.7) k/uL Basophils # (0-0.2) k/uL Sodium (137-145) mmol/L Potassium (3.5-5.1) mmol/L Chloride (98-107) mmol/L Carbon Dioxide (22-30) mmol/L Anion Gap mmol/L BUN (7-17) mg/dL Creatinine (0.52-1.04) mg/dL Est GFR (CKD-EPI)AfAm (>60 ml/min/1.73 sqM) Est GFR (CKD-EPI)NonAf (>60 ml/min/1.73 sqM) Glucose (74-99) mg/dL Calcium (8.4-10.2) mg/dL Magnesium (1.6-2.3) mg/dL Troponin I (0.000-0.034) ng/mL Lipase (23-300) U/L Stool Occult Blood Positive H (Negative) Serum Alcohol mg/dL Disposition Clinical Impression: GI bleed, Chest pain Disposition: OTHER INSTITUTION NOT DEFINED Condition: Serious Referrals: Constantine Figueroa DO [Primary Care Provider] - 1-2 days Time of Disposition: 21:08 - Out of Hospital Transfer - Req. Specs Out of Hospital Transfer - Requested Specifics: Other Emergency Center ([facility])
[2023-01-08 20:32] LABS: Platelet Count 130 k/uL (150-450)
[2023-01-08 20:37] LABS: Alcohol 413 mg/dL
--- NOTE | 2023-01-08 20:40 | XR ---
EXAMINATION TYPE: XR chest 2V DATE OF EXAM: 01/08/2023 8:24 PM COMPARISON: Chest radiographs from 11/25/2022. TECHNIQUE: XR chest 2V Frontal and lateral views of the chest. CLINICAL INDICATION:Female, 57 years old with history of chest pain; FINDINGS: Lungs/Pleura: There is no evidence of pleural effusion, focal consolidation, or pneumothorax. Pulmonary vascularity: Unremarkable. Heart/mediastinum: Cardiomediastinal silhouette is unremarkable. Musculoskeletal: No acute osseous pathology. IMPRESSION: No acute cardiopulmonary disease/process.
[2023-01-08 20:53] VITALS: BP 120/85; PULSE 112
[2023-01-08] MEDS ORDERED: ONDANSETRON 4 MG/2 ML VIAL IVP STA (21:00)
== END 2023-01-08 21:28 | disposition other institution (70) ==
LOC: EC 19:27
DX: K92.2 Gastrointestinal hemorrhage, unspecified (principal); R07.9 Chest pain, unspecified; I10 Essential (primary) hypertension; F41.9 Anxiety disorder, unspecified; F32.A Depression, unspecified; Z79.899 Other long term (current) drug therapy; Z87.891 Personal history of nicotine dependence; Z88.1 Allergy status to other antibiotic agents; Z88.8 Allergy status to other drugs, medicaments and biological substances; Z20.822 Contact with and (suspected) exposure to COVID-19
CPT/HCPCS: 36415; 93005; 80048; 83690; 83735; 84484; 85025; 82272; 87635; 71046; 99285; 96374; 96375; G0480; J2405; C9113; 80320

== ENCOUNTER 2023-01-28 10:48 | Emergency (ER) | payer OTHER ==
[2023-01-28 11:00] VITALS: RESP 18; TEMP 98.6
[2023-01-28] MEDS ORDERED: MORPHINE SULFATE 4 MG/ML SYRINGE IVP STA ×2 (11:32→12:36)
[2023-01-28] MEDS ORDERED: PANTOPRAZOLE 40 MG/10 ML VIAL IVP STA (11:53)
[2023-01-28] MEDS ORDERED: SODIUM CHLORIDE 0.9% 1,000 ML IV STA (11:53)
--- NOTE | 2023-01-28 11:57 | ED ---
General Adult HPI - General Chief complaint: Abdominal Pain Stated complaint: ABD Pain Time Seen by Provider: 01/28/23 11:07 Source: patient, RN notes reviewed Mode of arrival: ambulatory Limitations: no limitations - History of Present Illness Initial comments: Patient is a pleasant 57-year-old female presenting to the emergency department with concerns with abdominal discomfort. Onset of symptoms was yesterday. Patient did have colostomy bag placed Wednesday at [facility], unclear why however states it was urgent. No history of similar abdominal problems previously. Patient denies any vomiting. Minimal nausea. Patient is still having liquid stool passing through the ostomy bag. No fever. Patient does admit to drinking alcohol, including one beer today - Related Data Home Medications Medication Instructions Recorded Confirmed Multivitamins, Thera [Multivitamin 1 tab PO DAILY 04/19/22 11/23/22 (formulary)] Atorvastatin [Lipitor] 20 mg PO HS 11/23/22 11/23/22 Furosemide [Lasix] 40 mg PO DAILY 11/23/22 11/23/22 Gabapentin 600 mg PO TID 11/23/22 11/23/22 Liraglutide [Saxenda] 3 mg SQ DAILY 11/23/22 11/23/22 Naltrexone Microspheres [Vivitrol] 380 mg IM Q28D 11/23/22 11/23/22 Sodium Chloride 0.65% Nasal [Deep 2 spr EA NOSTRIL QID PRN 11/23/22 11/23/22 Sea (Saline)] Thiamine [Vitamin B-1] 100 mg PO BID 11/23/22 11/23/22 Venlafaxine HCl [Effexor XR] 225 mg PO DAILY 11/23/22 11/23/22 traZODone HCL [Desyrel] 200 mg PO HS 11/23/22 11/23/22 Previous Rx's Medication Instructions Recorded Rivaroxaban [Xarelto] 20 mg PO DAILY 30 Days tab 01/19/22 Folic Acid 1 mg PO DAILY tab 03/19/22 QUEtiapine [SEROquel] 50 mg PO HS PRN 30 Days #30 tab 11/29/22 Allergies Allergy/AdvReac Type Severity Reaction Status Date / Time bacitracin Allergy Rash/Hives Verified 01/28/23 11:00 cephalexin [From Keflex] Allergy Itching Verified 01/28/23 11:00 Review of Systems ROS Statement: Those systems with pertinent positive or pertinent negative responses have been documented in the HPI. ROS Other: All systems not noted in ROS Statement are negative. Constitutional: Denies: fever Eyes: Denies: eye pain ENT: Denies: ear pain Respiratory: Denies: cough Cardiovascular: Denies: chest pain Gastrointestinal: Reports: as per HPI, abdominal pain Genitourinary: Denies: dysuria Musculoskeletal: Denies: back pain Skin: Denies: rash Neurological: Denies: weakness Past Medical History Past Medical History: Deep Vein Thrombosis (DVT), Hypertension Additional Past Medical History / Comment(s): concussion History of Any Multi-Drug Resistant Organisms: None Reported Past Surgical History: No Surgical Hx Reported Additional Past Surgical History / Comment(s): jaw surgery, colostomy Past Anesthesia/Blood Transfusion Reactions: No Reported Reaction Past Psychological History: Anxiety, Depression Smoking Status: Former smoker Past Alcohol Use History: Abuse, Daily, Heavy Past Drug Use History: None Reported - Past Family History Father Additional Family Medical History / Comment(s): Spleen CA Mother Family Medical History: COPD Additional Family Medical History / Comment(s): empysema General Exam Limitations: no limitations General appearance: alert, in no apparent distress Head exam: Present: normocephalic Eye exam: Present: normal appearance Neck exam: Present: normal inspection Respiratory exam: Present: normal lung sounds bilaterally Cardiovascular Exam: Present: regular rate, normal rhythm Expanded Peripheral pulses: 2+: Dorsalis Pedis (R), Dorsalis Pedis (L) GI/Abdominal exam: Present: soft, tenderness (Mild to moderate tenderness epigastrium and near the ostomy bag), other (Incision sites are clean and dry and intact). Absent: distended Extremities exam: Present: normal inspection. Absent: pedal edema, calf t enderness Neurological exam: Present: alert Psychiatric exam: Present: normal affect, normal mood Skin exam: Present: normal color Course Vital Signs 01/28/23 10:57 Temperature 98.6 F Pulse Rate 95 Respiratory 18 Rate Blood Pressure 116/60 O2 Sat by Pulse 99 Oximetry EKG Findings - EKG Results: EKG: interpreted by ERMD, sinus rhythm, normal axis, normal QRS, normal ST/T Medical Decision Making - Medical Decision Making Was pt. sent in by a medical professional or institution (, PA, RAIL TRACK MAINTAINER, urgent care, hospital, or usp...) When possible be specific @ -No Did you speak to anyone other than the patient for history (EMS, parent, family, police, friend...)? What history was obtained from this source @ -No Did you review nursing and triage notes (agree or disagree)? Why? @ -I reviewed and agree with nursing and triage notes Were old charts reviewed (outside hosp., previous admission, EMS record, old EKG, old radiological studies, urgent care reports/EKG's, usp records)? Report findings @ -Reviewed discharge summary from [facility] from this week Differential Diagnosis (chest pain, altered mental status, abdominal pain women, abdominal pain men, vaginal bleeding, weakness, fever, dyspnea, syncope, headache, dizziness, GI bleed, back pain, seizure, CVA, palpatations, mental health)? @ -Differential Abdominal Pain Women: Appendicitis, Cholecystitis, diverticulosis, ischemic bowel, pancreatitis, he patitis, UTI, gastroenteritis, AAA, incarcerated hernia, bowel obstruction, constipation, inflammatory bowel, hepatitis, peptic ulcer disease, splenic infarction, perforated viscus, vulvitis, ovarian torsion, PID, kidney stone, placenta abruption, this is not meant to be an all-inclusive list EKG interpreted by me (3pts min.). @ -As above X-rays interpreted by me (1pt min.). @ -None done CT interpreted by me (1pt min.). @ -Report reviewed U/S interpreted by me (1pt. min.). @ -None done What testing was considered but not performed or refused? (CT, X-rays, U/S, labs)? Why? @ -None What meds were considered but not given or refused? Why? @ -None Did you discuss the management of the patient with other professionals (professionals i.e. , PA, RAIL TRACK MAINTAINER, lab, RT, psych nurse, medical social consultant, paper reeler, teacher, classification officer, egg caser)? Give summary @ -Case discussed with Dr. Vicente including presentation and exam and results. She is comfortable with discharge patient and follow-up as directed Was smoking cessation discussed for >3mins.? @ -No Was critical care preformed (if so, how long)? @ -No Were there social determinants of health that impacted care today? How? (Homelessness, low income, unemployed, alcoholism, drug addiction, transportation, low edu. Level, literacy, decrease access to med. care, intermediate, rehab)? @ -No Was there de-escalation of care discussed even if they declined (Discuss DNR or withdrawal of care, Hospice)? DNR status @ -No What co-morbidities impacted this encounter? (DM, HTN, Smoking, COPD, CAD, Cancer, CVA, ARF, Chemo, Hep., AIDS, mental health diagnosis, sleep apnea, morbid obesity)? @ -None Was patient admitted / discharged? Hospital course, mention meds given and route, prescriptions, significant lab abnormalities, going to OR and other pertinent info. @ -Patient reevaluated and feeling much better. Abdomen soft with mild nonspecific tenderness. Patient is requesting discharge home. Patient is updated on results and need for follow-up. Undiagnosed new problem with uncertain prognosis? @ -No Drug Therapy requiring intensive monitoring for toxicity (Heparin, Nitro, Insulin, Cardizem)? @ -No Were any procedures done? @ -No Diagnosis/symptom? @ -Abdominal pain Acute, or Chronic, or Acute on Chronic? @ -Acute Uncomplicated (without systemic symptoms) or Complicated (systemic symptoms)? @ -default Side effects of treatment? @ -No Exacerbation, Progression, or Severe Exacerbation? @ -No Poses a threat to life or bodily function? How? (Chest pain, USA, [place], pneumonia, PE, COPD, DKA, ARF, appy, cholecystitis, CVA, Diverticulitis, Homicidal, Suicidal, threat to staff... and all critical care pts) @ -No - Lab Data Result diagrams: 01/28/23 12:34 01/28/23 12:34 Lab Results 01/28/23 01/28/23 01/28/23 Range/Units 12:34 12:34 12:34 WBC 3.5 L (3.8-10.6) k/uL RBC 3.31 L (3.80-5.40) m/uL Hgb 9.8 L D (11.4-16.0) gm/dL Hct 30.9 L (34.0-46.0) % MCV 93.3 (80.0-100.0) fL MCH 29.5 (25.0-35.0) pg MCHC 31.7 (31.0-37.0) g/dL RDW 15.1 (11.5-15.5) % Plt Count 434 D (150-450) k/uL MPV 7.8 Neutrophils % 52 % Lymphocytes % 35 % Monocytes % 7 % Eosinophils % 2 % Basophils % 0 % Neutrophils # 1.8 (1.3-7.7) k/uL Lymphocytes # 1.2 (1.0-4.8) k/uL Monocytes # 0.3 (0-1.0) k/uL Eosinophils # 0.1 (0-0.7) k/uL Basophils # 0.0 (0-0.2) k/uL Hypochromasia Slight Sodium 145 (137-145) mmol/L Potassium 3.9 (3.5-5.1) mmol/L Chloride 111 H (98-107) mmol/L Carbon Dioxide 23 (22-30) mmol/L Anion Gap 11 mmol/L BUN 4 L (7-17) mg/dL Creatinine 0.49 L (0.52-1.04) mg/dL Est GFR (CKD-EPI)AfAm >90 (>60 ml/min/1.73 sqM) Est GFR (CKD-EPI)NonAf >90 (>60 ml/min/1.73 sqM) Glucose 99 (74-99) mg/dL Calcium 8.1 L (8.4-10.2) mg/dL Total Bilirubin 0.2 (0.2-1.3) mg/dL AST 37 H (14-36) U/L ALT 26 (4-34) U/L Alkaline Phosphatase 63 (38-126) U/L Total Protein 5.4 L (6.3-8.2) g/dL Albumin 3.1 L (3.5-5.0) g/dL Amylase 60 (30-110) U/L Lipase 591 H (23-300) U/L Urine Color Yellow Urine Appearance Cloudy H (Clear) Urine pH 5.0 (5.0-8.0) Ur Specific [place] 1.012 (1.001-1.035) Urine Protein Negative (Negative) Urine Glucose (UA) Negative (Negative) Urine Ketones Negative (Negative) Urine Blood Negative (Negative) Urine Nitrite Negative (Negative) Urine Bilirubin Negative (Negative) Urine Urobilinogen <2.0 (<2.0) mg/dL Ur Leukocyte Esterase Negative (Negative) Amorphous Sediment Rare H (None) /hpf Serum Alcohol 199 mg/dL Disposition Clinical Impression: Abdominal pain, Alcohol intoxication Disposition: HOME SELF-CARE Condition: Stable Instructions (If sedation given, give patient instructions): Abdominal Pain (ED), Alcohol Intoxication (ED), Abuse of Alcohol (ED) Additional Instructions: Discontinue alcohol use. Please do follow-up with primary care physician and your surgeon in the next couple days for recheck. Return for increased pain, vomiting, fever, worsening or changing symptoms or any other concerns. Is patient prescribed a controlled substance at d/c from ED?: No Referrals: Constantine Figueroa DO [Primary Care Provider] - 1-2 days Rozina Villa DO [Doctor of Osteopathic Medicine] - 1-2 days Time of Disposition: 14:16
[2023-01-28 13:04] LABS: ALT 26 U/L (4-34); AST 37 U/L (14-36); African American GFR (CKD) >90 (>60 ml/min/1.73 sqM); Albumin 3.1 g/dL (3.5-5.0); Alkaline Phosphatase 63 U/L (38-126); Amylase 60 U/L (30-110); Anion Gap 11 mmol/L; Blood Urea Nitrogen 4 mg/dL (7-17); Calcium 8.1 mg/dL (8.4-10.2); Carbon Dioxide 23 mmol/L (22-30); Chloride 111 mmol/L (98-107); Glucose 99 mg/dL (74-99); Lipase 591 U/L (23-300); Non-African American GFR(CKD) >90 (>60 ml/min/1.73 sqM); Potassium 3.9 mmol/L (3.5-5.1); Sodium 145 mmol/L (137-145); Total Bilirubin 0.2 mg/dL (0.2-1.3); Total Protein 5.4 g/dL (6.3-8.2)
[2023-01-28 13:08] LABS: Basophils % (A) 0 %; Eosinophils # (A) 0.1 k/uL (0-0.7); Eosinophils % (A) 2 %; HCT 30.9 % (34.0-46.0); Hypochromasia Slight; Lymphocytes # (A) 1.2 k/uL (1.0-4.8); Lymphocytes % (A) 35 %; MCH 29.5 pg (25.0-35.0); MCHC 31.7 g/dL (31.0-37.0); MCV 93.3 fL (80.0-100.0); Mean Platelet Volume 7.8; Monocytes # (A) 0.3 k/uL (0-1.0); Monocytes % (A) 7 %; Neutrophils # (A) 1.8 k/uL (1.3-7.7); Neutrophils % (A) 52 %; RBC 3.31 m/uL (3.80-5.40); RDW 15.1 % (11.5-15.5); WBC 3.5 k/uL (3.8-10.6)
[2023-01-28 13:23] LABS: Alcohol 199 mg/dL
[2023-01-28 13:32] LABS: HGB 9.8 gm/dL (11.4-16.0)
[2023-01-28 13:33] LABS: Platelet Count 434 k/uL (150-450)
[2023-01-28 13:39] LABS: Amorphous Sediment,Urine Rare /hpf; Appearance,Urine Cloudy (Clear); Bilirubin,Urine Negative (Negative); Blood,Urine Negative (Negative); Color,Urine Yellow; Glucose,Urine (UA) Negative (Negative); Ketones,Urine Negative (Negative); Leukocyte Esterase,Urine Negative (Negative); Nitrite,Urine Negative (Negative); Protein,Urine Negative (Negative); Specific Gravity,Urine 1.012 (1.001-1.035); Urobilinogen,Urine <2.0 mg/dL (<2.0)
--- NOTE | 2023-01-28 13:51 | CT ---
EXAMINATION TYPE: CT abdomen pelvis w con DATE OF EXAM: 01/28/2023 COMPARISON: None INDICATION: Abdominal pain, colostomy placed Wednesday DLP: 1404.7 mGycm, Automated exposure control for dose reduction was used. CONTRAST: 100 ml mL of Isovue 300. Study performed without Oral Contrast TECHNIQUE: Axial images were obtained from above the diaphragm to the pubic rami in the axial plane a t 5 mm thick sections. Reconstructed images are reviewed on the computer in the coronal plane. FINDINGS: Limited CT sections are obtained the lung bases. There is a 0.8 cm nodule which may be within the ma pia fissure on the right lower lung. Series [address] ABDOMEN: Liver: Normal Spleen: Normal Pancreas: Normal Adrenal glands: The adrenal glands are normal. Gallbladder: Gallbladder appears to have thickened wall and may have some wall enhancement. Correlate for acute cholecystitis. Kidneys: No masses are evident. No hydronephrosis is present. No cysts are present. Delayed images were obtained through the kidneys, which remain unremarkable. Aorta: Mild vascular calcifications within the aorta. Inferior vena cava: Normal. CT PELVIS: There is a left lower quadrant diverting ostomy placed. This study is lateral contrast limiting bowel evaluation. No dilated loops of bowel are evident. Appendix: Normal as visualized. Slightly more superior than the normal-appearing appendix is some mil d inflammatory change in the paracolic gutter. Adjacent bowel loops appear unremarkable. Urinary bladder: Normal. Genitourinary structures: Uterus is normal. Adnexa are normal Osseous structures: No suspicious lytic or sclerotic lesions. IMPRESSIONS: 1. Recent postsurgical ostomy left lower quadrant. No suspicious dilated loops of bowel are identifi ed. 2. Some minimal pericolonic inflammatory change in the mid descending colon region. Adjacent divertic ebony are not identified. Correlate with location of the patient's pain. The appendix more inferior yareli ears normal. 3. Thickened enhancing gallbladder wall. Correlate for acute cholecystitis. 4. 0.8 cm nodule right lung base. Follow-up is recommended
[2023-01-28 14:50] LABS: INR 0.9 (<1.2); Partial Thromboplastin Time 18.9 sec (22.0-30.0)
[2023-01-28 15:12] VITALS: BP 130/89; PULSE 92
== END 2023-01-28 15:12 | disposition home or self-care (01) ==
LOC: EC 10:48
DX: F10.129 Alcohol abuse with intoxication, unspecified (principal); R10.13 Epigastric pain; I10 Essential (primary) hypertension; F41.9 Anxiety disorder, unspecified; F32.A Depression, unspecified; Z79.899 Other long term (current) drug therapy; Z87.891 Personal history of nicotine dependence; Z88.1 Allergy status to other antibiotic agents; Z93.3 Colostomy status; Z86.718 Personal history of other venous thrombosis and embolism; Y90.6 Blood alcohol level of 120-199 mg/100 ml
CPT/HCPCS: 36415; 93005; 80053; 82150; 83690; 85025; 85610; 85730; 81001; 74177; 99285; 96374; 96375; 96376; 96361 ×3; G0480; J2270; C9113; Q9967; 80320

== ENCOUNTER 2023-03-04 13:00 | Emergency (ER) | payer OTHER ==
[2023-03-04 14:09] VITALS: BP 130/84; PULSE 79; RESP 16
--- NOTE | 2023-03-04 14:33 | ED ---
Abdominal Pain HPI - General Chief Complaint: Abdominal Pain Stated Complaint: stomach pain, Time Seen by Provider: 03/04/23 13:08 Source: patient, EMS, RN notes reviewed Mode of arrival: EMS Limitations: no limitations - History of Present Illness Initial Comments: 57-year-old female presents emergency Department chief complaint of abdominal discomfort, skin irritation around her ostomy. Patient states that she has not had change recently has not been clean recently states she did not have some ice for this. Patient presents today complaining of irritation and leaking of her ostomy bag. Denies any pain is deep to the surface. That the nausea vomiting has appears or chills no chest pain or shortness of breath. Patient is a daily drinker having no withdrawal symptoms denies being acutely intoxicated. Patient is a current baseline. - Related Data Home Medications Medication Instructions Recorded Confirmed Multivitamins, Thera [Multivitamin 1 tab PO DAILY 04/19/22 01/28/23 (formulary)] Atorvastatin [Lipitor] 20 mg PO HS 11/23/22 01/28/23 Furosemide [Lasix] 40 mg PO DAILY 11/23/22 01/28/23 Gabapentin 600 mg PO TID 11/23/22 01/28/23 Liraglutide [Saxenda] 3 mg SQ DAILY 11/23/22 01/28/23 Sodium Chloride 0.65% Nasal [Deep 2 spr EA NOSTRIL QID PRN 11/23/22 01/28/23 Sea (Saline)] Thiamine [Vitamin B-1] 100 mg PO BID 11/23/22 01/28/23 Venlafaxine HCl [Effexor XR] 225 mg PO DAILY 11/23/22 01/28/23 traZODone HCL [Desyrel] 200 mg PO HS 11/23/22 01/28/23 Amoxic-Pot Clav 875-125Mg 1 tab PO BID 01/28/23 01/28/23 [Augmentin 875-125] Magnesium Oxide [Magox 400] 400 mg PO DAILY 01/28/23 01/28/23 Pantoprazole Sodium [Protonix] 20 mg PO DAILY 01/28/23 01/28/23 Prochlorperazine [Compazine] 5 mg PO BID PRN 01/28/23 01/28/23 methocarbamoL [Robaxin] 500 mg PO TID PRN 01/28/23 01/28/23 Previous Rx's Medication Instructions Recorded Rivaroxaban [Xarelto] 20 mg PO DAILY 30 Days tab 01/19/22 Folic Acid 1 mg PO DAILY tab 03/19/22 QUEtiapine [SEROquel] 50 mg PO HS PRN 30 Days #30 tab 11/29/22 Allergies Allergy/AdvReac Type Severity Reaction Status Date / Time bacitracin Allergy Rash/Hives Verified 03/04/23 13:09 cephalexin [From Keflex] Allergy Itching Verified 03/04/23 13:09 Review of Systems ROS Statement: Those systems with pertinent positive or pertinent negative responses have been documented in the HPI. ROS Other: All systems not noted in ROS Statement are negative. Past Medical History Past Medical History: Deep Vein Thrombosis (DVT), Hypertension Additional Past Medical History / Comment(s): concussion History of Any Multi-Drug Resistant Organisms: None Reported Past Surgical History: No Surgical Hx Reported Additional Past Surgical History / Comment(s): jaw surgery, colostomy Past Anesthesia/Blood Transfusion Reactions: No Reported Reaction Past Psychological History: Anxiety, Depression Smoking Status: Former smoker Past Alcohol Use History: Abuse, Daily, Heavy Past Drug Use History: None Reported - Past Family History Father Additional Family Medical History / Comment(s): Spleen CA Mother Family Medical History: COPD Additional Family Medical History / Comment(s): empysema General Exam General appearance: alert, in no apparent distress Head exam: Present: atraumatic, normocephalic, normal inspection Eye exam: Present: normal appearance, PERRL, EOMI. Absent: scleral icterus, conjunctival injection, periorbital swelling ENT exam: Present: normal exam, mucous membranes moist Neck exam: Present: normal inspection. Absent: tenderness, meningismus, lymphadenopathy Respiratory exam: Present: normal lung sounds bilaterally. Absent: respiratory distress, wheezes, rales, rhonchi, stridor Cardiovascular Exam: Present: regular rate, normal rhythm, normal heart sounds. Absent: systolic murmur, diastolic murmur, rubs, gallop, clicks GI/Abdominal exam: Present: soft, normal bowel sounds, other (Ostomy noted left lower, ostomy bag is full, there is leaking noted, skin erythema noted). Absent: distended, tenderness, guarding, rebound, rigid Course Vital Signs 06/22/23 14:07 Pulse Rate 79 Respiratory 16 Rate Blood Pressure 130/84 O2 Sat by Pulse 93 L Oximetry Medical Decision Making - Medical Decision Making Was pt. sent in by a medical professional or institution (ADORE Og, ENVIRONMENTAL SERVICES TECHNICIAN, urgent care, hospital, or [facility]...) When possible be specific @ -No Did you speak to anyone other than the patient for history (EMS, parent, family, police, friend...)? What history was obtained from this source @ -No Did you review nursing and triage notes (agree or disagree)? Why? @ -I reviewed and agree with nursing and triage notes Were old charts reviewed (outside hosp., previous admission, EMS record, old EKG, old radiological studies, urgent care reports/EKG's, [facility] records)? Report findings @ -No old charts were reviewed Differential Diagnosis (chest pain, altered mental status, abdominal pain women, abdominal pain men, vaginal bleeding, weakness, fever, dyspnea, syncope, headache, dizziness, GI bleed, back pain, seizure, CVA, palpatations, mental health, musculoskeletal)? @ -Dermatitis, ostomy complication, abdominal pain, EKG interpreted by me (3pts min.). @ -None X-rays interpreted by me (1pt min.). @ -None done CT interpreted by me (1pt min.). @ -None done U/S interpreted by me (1pt. min.). @ -None done What testing was considered but not performed or refused? (CT, X-rays, U/S, labs)? Why? @ -None What meds were considered but not given or refused? Why? @ -None Did you discuss the management of the patient with other professionals (professionals i.e. ADORE Og, ENVIRONMENTAL SERVICES TECHNICIAN, lab, RT, psych nurse, web content & social media manager, ruching machine operator, teacher, staff weapons officer, field nurse case manager)? Give summary @ -No Was smoking cessation discussed for >3mins.? @ -No Was critical care preformed (if so, how long)? @ -No Were there social determinants of health that impacted care today? How? (Homelessness, low income, unemployed, alcoholism, drug addiction, transportation, low edu. Level, literacy, decrease access to med. care, skilled nursing, rehab)? @ -No Was there de-escalation of care discussed even if they declined (Discuss DNR or withdrawal of care, Hospice)? DNR status @ -No What co-morbidities impacted this encounter? (DM, HTN, Smoking, COPD, CAD, Cancer, CVA, ARF, Chemo, Hep., AIDS, mental health diagnosis, sleep apnea, morbid obesity)? @ -Alcohol abuse Was patient admitted / discharged? Hospital course, mention meds given and route, prescriptions, significant lab abnormalities, going to OR and other pertinent info. @ -Discharge ostomy site was clean, very cream was applied,Bag was applied p atient is discharged in stable condition with wound care instructions. Undiagnosed new problem with uncertain prognosis? @ -No Drug Therapy requiring intensive monitoring for toxicity (Heparin, Nitro, Insulin, Cardizem)? @ -No Were any procedures done? @ -No Diagnosis/symptom? @ -Ostomy complication Acute, or Chronic, or Acute on Chronic? @ -Acute Uncomplicated (without systemic symptoms) or Complicated (systemic symptoms)? @ -Uncomplicated Side effects of treatment? @ -No Exacerbation, Progression, or Severe Exacerbation? @ -No Poses a threat to life or bodily function? How? (Chest pain, [place], [place], pneumonia, PE, COPD, DKA, ARF, appy, cholecystitis, CVA, Diverticulitis, Homicidal, Suicidal, threat to staff... and all critical care pts) @ -No Disposition Clinical Impression: Alcohol use disorder, Complication of ostomy Disposition: HOME SELF-CARE Condition: Stable Instructions (If sedation given, give patient instructions): Colostomy Care (ED) Additional Instructions: Please return to the Emergency Department if symptoms worsen or any other concerns. Is patient prescribed a controlled substance at d/c from ED?: No Referrals: Constantine Figueroa DO [Primary Care Provider] - 1-2 days Time of Disposition: 14:24
== END 2023-03-04 15:08 | disposition home or self-care (01) ==
LOC: EC 13:00
DX: K94.00 Colostomy complication, unspecified (principal); F10.90 Alcohol use, unspecified, uncomplicated; I10 Essential (primary) hypertension; Z86.718 Personal history of other venous thrombosis and embolism; F41.9 Anxiety disorder, unspecified; F32.A Depression, unspecified; Z87.891 Personal history of nicotine dependence; Z88.1 Allergy status to other antibiotic agents; Z88.8 Allergy status to other drugs, medicaments and biological substances; Z79.899 Other long term (current) drug therapy
CPT/HCPCS: 99284

== ENCOUNTER 2023-03-20 14:12 | Inpatient (IN) | payer OTHER ==
[2023-03-20] MEDS ORDERED: SODIUM CHLORIDE 0.9% 1,000 ML IV STA (14:28)
[2023-03-20] MEDS ORDERED: DICYCLOMINE 10 MG/ML 2 ML AMP IM STA (14:28)
--- NOTE | 2023-03-20 14:35 | ED ---
General Adult HPI - General Chief complaint: Abdominal Pain Stated complaint: Abd Pain Time Seen by Provider: 03/20/23 14:20 Source: patient, RN notes reviewed Mode of arrival: EMS Limitations: no limitations - History of Present Illness Initial comments: Patient is a pleasant 57-year-old female presents emergency department with concerns with abdominal pain. Onset of symptoms was a day or 2 ago. Patient does have history of colostomy placed a couple months ago. Patient is concerned regarding leaking of her colostomy bag as well. Patient is unclear last time she did change the colostomy bag. Patient states discomfort is coming from below the area of the ostomy. No nausea vomiting. - Related Data Home Medications Medication Instructions Recorded Confirmed Multivitamins, Thera [Multivitamin 1 tab PO DAILY 04/19/22 01/28/23 (formulary)] Atorvastatin [Lipitor] 20 mg PO HS 11/23/22 01/28/23 Furosemide [Lasix] 40 mg PO DAILY 11/23/22 01/28/23 Gabapentin 600 mg PO TID 11/23/22 01/28/23 Liraglutide [Saxenda] 3 mg SQ DAILY 11/23/22 01/28/23 Sodium Chloride 0.65% Nasal [Deep 2 spr EA NOSTRIL QID PRN 11/23/22 01/28/23 Sea (Saline)] Thiamine [Vitamin B-1] 100 mg PO BID 11/23/22 01/28/23 Venlafaxine HCl [Effexor XR] 225 mg PO DAILY 11/23/22 01/28/23 traZODone HCL [Desyrel] 200 mg PO HS 11/23/22 01/28/23 Amoxic-Pot Clav 875-125Mg 1 tab PO BID 01/28/23 01/28/23 [Augmentin 875-125] Magnesium Oxide [Magox 400] 400 mg PO DAILY 01/28/23 01/28/23 Pantoprazole Sodium [Protonix] 20 mg PO DAILY 01/28/23 01/28/23 Prochlorperazine [Compazine] 5 mg PO BID PRN 01/28/23 01/28/23 methocarbamoL [Robaxin] 500 mg PO TID PRN 01/28/23 01/28/23 Previous Rx's Medication Instructions Recorded Rivaroxaban [Xarelto] 20 mg PO DAILY 30 Days tab 01/19/22 Folic Acid 1 mg PO DAILY tab 03/19/22 QUEtiapine [SEROquel] 50 mg PO HS PRN 30 Days #30 tab 11/29/22 Allergies Allergy/AdvReac Type Severity Reaction Status Date / Time bacitracin Allergy Rash/Hives Verified 03/20/23 14:22 cephalexin [From Keflex] Allergy Itching Verified 03/20/23 14:22 Review of Systems ROS Statement: Those systems with pertinent positive or pertinent negative responses have been documented in the HPI. ROS Other: All systems not noted in ROS Statement are negative. Constitutional: Denies: fever Eyes: Denies: eye pain ENT: Denies: ear pain Respiratory: Denies: cough Cardiovascular: Denies: chest pain Endocrine: Denies: fatigue Gastrointestinal: Reports: as per HPI, abdominal pain. Denies: nausea, vomiting Genitourinary: Denies: dysuria Musculoskeletal: Denies: back pain Skin: Denies: rash Neurological: Denies: weakness Past Medical History Past Medical History: Deep Vein Thrombosis (DVT), Hypertension Additional Past Medical History / Comment(s): concussion History of Any Multi-Drug Resistant Organisms: None Reported Past Surgical History: No Surgical Hx Reported Additional Past Surgical History / Comment(s): jaw surgery, colostomy Past Anesthesia/Blood Transfusion Reactions: No Reported Reaction Past Psychological History: Anxiety, Depression Smoking Status: Former smoker Past Alcohol Use History: Abuse, Daily, Heavy Past Drug Use History: None Reported - Past Family History Father Additional Family Medical History / Comment(s): Spleen CA Mother Family Medical History: COPD Additional Family Medical History / Comment(s): empysema General Exam Limitations: no limitations General appearance: alert, in no apparent distress Head exam: Present: normocephalic Eye exam: Present: normal appearance Neck exam: Present: normal inspection Respiratory exam: Present: normal lung sounds bilaterally Cardiovascular Exam: Present: regular rate, normal rhythm GI/Abdominal exam: Present: soft, tenderness (Mild tenderness left lower abdomen near area of ostomy. Ostomy bag does appear to have a leak in it.), normal bowel sounds. Absent: distended, guarding, rebound, rigid, pulsatile mass Extremities exam: Present: normal inspection Neurological exam: Present: alert Psychiatric exam: Present: normal affect, normal mood Skin exam: Present: normal color Course Vital Signs 03/20/23 14:20 Temperature 97.7 F Pulse Rate 80 Respiratory 18 Rate Blood Pressure 139/89 O2 Sat by Pulse 94 L Oximetry Medical Decision Making - Medical Decision Making Was pt. sent in by a medical professional or institution (, ADORE, PUBLIC IMPROVEMENT INSPECTOR, urgent care, hospital, or intermediate...) When possible be specific @ -No Did you speak to anyone other than the patient for history (EMS, parent, family, police, friend...)? What history was obtained from this source @ -No Did you review nursing and triage notes (agree or disagree)? Why? @ -I reviewed and agree with nursing and triage notes Were old charts reviewed (outside hosp., previous admission, EMS record, old EKG, old radiological studies, urgent care reports/EKG's, intermediate records)? Report findings @ -No old charts were reviewed Differential Diagnosis (chest pain, altered mental status, abdominal pain women, abdominal pain men, vaginal bleeding, weakness, fever, dyspnea, syncope, headache, dizziness, GI bleed, back pain, seizure, CVA, palpatations, mental health, musculoskeletal)? @ -Previous computed tomography scan report reviewed EKG interpreted by me (3pts min.). @ -As above X-rays interpreted by me (1pt min.). @ -None done CT interpreted by me (1pt min.). @ -Report reviewed U/S interpreted by me (1pt. min.). @ -None done What testing was considered but not performed or refused? (CT, X-rays, U/S, labs)? Why? @ -None What meds were considered but not given or refused? Why? @ -None Did you discuss the management of the patient with other professionals (professionals i.e. ADORE Og, PUBLIC IMPROVEMENT INSPECTOR, lab, RT, psych nurse, health care social worker, robotic machine operator, teacher, bomb squad officer, case planner)? Give summary @ -Case was discussed with Dr. Paige, who will admit covering Dr. Figueroa Was smoking cessation discussed for >3mins.? @ -No Was critical care preformed (if so, how long)? @ -No Were there social determinants of health that impacted care today? How? (Homelessness, low income, unemployed, alcoholism, drug addiction, transportation, low edu. Level, literacy, decrease access to med. care, assisted, rehab)? @ -No Was there de-escalation of care discussed even if they declined (Discuss DNR or withdrawal of care, Hospice)? DNR status @ -No What co-morbidities impacted this encounter? (DM, HTN, Smoking, COPD, CAD, Cancer, CVA, ARF, Chemo, Hep., AIDS, mental health diagnosis, sleep apnea, morbid obesity)? @ -None Was patient admitted / discharged? Hospital course, mention meds given and route, prescriptions, significant lab abnormalities, going to OR and other pertinent info. @ -Patient has unremarkable computed tomography scan. Patient has significant alcohol intoxication and will be held secondary to that. Case discussed with Dr. Paige, who will admit covering Dr. Figueroa. Patient updated Undiagnosed new problem with uncertain prognosis? @ -No Drug Therapy requiring intensive monitoring for toxicity (Heparin, Nitro, Insulin, Cardizem)? @ -No Were any procedures done? @ -No Diagnosis/symptom? @ -Abdominal pain, alcohol intoxication Acute, or Chronic, or Acute on Chronic? @ -Acute, acute on chronic Uncomplicated (without systemic symptoms) or Complicated (systemic symptoms)? @ -default Side effects of treatment? @ -No Exacerbation, Progression, or Severe Exacerbation? @ -No Poses a threat to life or bodily function? How? (Chest pain, [place], [place], pneumonia, PE, COPD, DKA, ARF, appy, cholecystitis, CVA, Diverticulitis, Homicidal, Suicidal, threat to staff... and all critical care pts) @ -No - Lab Data Result diagrams: 03/20/23 14:40 03/20/23 14:40 Lab Results 03/20/23 03/20/23 03/20/23 Range/Units 14:40 14:40 14:40 WBC 4.3 (3.8-10.6) k/uL RBC 3.85 (3.80-5.40) m/uL Hgb 10.8 L (11.4-16.0) gm/dL Hct 34.3 (34.0-46.0) % MCV 88.9 (80.0-100.0) fL MCH 28.1 (25.0-35.0) pg MCHC 31.6 (31.0-37.0) g/dL RDW 16.1 H (11.5-15.5) % Plt Count 125 L D (150-450) k/uL MPV 7.8 Neutrophils % 71 % Lymphocytes % 20 % Monocytes % 6 % Eosinophils % 1 % Basophils % 1 % Neutrophils # 3.1 (1.3-7.7) k/uL Lymphocytes # 0.9 L (1.0-4.8) k/uL Monocytes # 0.3 (0-1.0) k/uL Eosinophils # 0.0 (0-0.7) k/uL Basophils # 0.0 (0-0.2) k/uL Manual Slide Review Performed Hypochromasia Moderate Anisocytosis Slight PT 9.6 (9.0-12.0) sec INR 0.9 (<1.2) APTT 20.4 L (22.0-30.0) sec Sodium 140 (137-145) mmol/L Potassium 4.4 (3.5-5.1) mmol/L Chloride 100 (98-107) mmol/L Carbon Dioxide 23 (22-30) mmol/L Anion Gap 17 mmol/L BUN 5 L (7-17) mg/dL Creatinine 0.54 (0.52-1.04) mg/dL Est GFR (CKD-EPI)AfAm >90 (>60 ml/min/1.73 sqM) Est GFR (CKD-EPI)NonAf >90 (>60 ml/min/1.73 sqM) Glucose 70 L (74-99) mg/dL Calcium 8.1 L (8.4-10.2) mg/dL Total Bilirubin 0.9 (0.2-1.3) mg/dL AST 224 H (14-36) U/L ALT 63 H (4-34) U/L Alkaline Phosphatase 60 (38-126) U/L Total Protein 6.7 (6.3-8.2) g/dL Albumin 4.1 (3.5-5.0) g/dL Amylase 47 (30-110) U/L Lipase 168 (23-300) U/L Serum Alcohol 449 H* mg/dL Disposition Clinical Impression: Abdominal pain, Alcohol use disorder, severe, dependence, Alcohol intoxication Disposition: ADMITTED IP TO THIS HOSP Is patient prescribed a controlled substance at d/c from ED?: No Referrals: Constantine Figueroa DO [Primary Care Provider] - 1-2 days Time of Disposition: 16:45
[2023-03-20 14:49] LABS: Anisocytosis Slight; Basophils % (A) 1 %; Eosinophils % (A) 1 %; HCT 34.3 % (34.0-46.0); HGB 10.8 gm/dL (11.4-16.0); Hypochromasia Moderate; Lymphocytes # (A) 0.9 k/uL (1.0-4.8); Lymphocytes % (A) 20 %; MCH 28.1 pg (25.0-35.0); MCHC 31.6 g/dL (31.0-37.0); MCV 88.9 fL (80.0-100.0); Mean Platelet Volume 7.8; Monocytes # (A) 0.3 k/uL (0-1.0); Monocytes % (A) 6 %; Neutrophils # (A) 3.1 k/uL (1.3-7.7); Neutrophils % (A) 71 %; RBC 3.85 m/uL (3.80-5.40); RDW 16.1 % (11.5-15.5); WBC 4.3 k/uL (3.8-10.6)
[2023-03-20 15:07] LABS: ALT 63 U/L (4-34); AST 224 U/L (14-36); African American GFR (CKD) >90 (>60 ml/min/1.73 sqM); Albumin 4.1 g/dL (3.5-5.0); Alkaline Phosphatase 60 U/L (38-126); Amylase 47 U/L (30-110); Anion Gap 17 mmol/L; Blood Urea Nitrogen 5 mg/dL (7-17); Calcium 8.1 mg/dL (8.4-10.2); Carbon Dioxide 23 mmol/L (22-30); Chloride 100 mmol/L (98-107); Glucose 70 mg/dL (74-99); INR 0.9 (<1.2); Lipase 168 U/L (23-300); Non-African American GFR(CKD) >90 (>60 ml/min/1.73 sqM); Potassium 4.4 mmol/L (3.5-5.1); Prothrombin Time 9.6 sec (9.0-12.0); Sodium 140 mmol/L (137-145); Total Bilirubin 0.9 mg/dL (0.2-1.3); Total Protein 6.7 g/dL (6.3-8.2)
[2023-03-20 15:08] LABS: Partial Thromboplastin Time 20.4 sec (22.0-30.0)
[2023-03-20 15:17] LABS: Alcohol 449 mg/dL
[2023-03-20 15:21] LABS: Platelet Count 125 k/uL (150-450)
--- NOTE | 2023-03-20 15:54 | CT ---
EXAMINATION TYPE: CT abdomen pelvis w con CT DLP: 1223.3 mGycm, Automated exposure control for dose reduction was used. DATE OF EXAM: 03/20/2023 3:41 PM COMPARISON: CT abdomen pelvis most recent from 01/28/2023 . CLINICAL INDICATION:Female, 57 years old with history of abdominal pain; pain at site of stoma TECHNIQUE: Standard CT of the abdomen and pelvis following the administration of 100 cc of Isovue 3 00 IV contrast material. Coronal and sagittal reformats were performed. FINDINGS: LOWER CHEST: Posterior dependent subsegmental atelectasis is noted. Stable 8 mm nodule along the righ t major fissure favored to represent an intrafissural lymph node. ABDOMEN LIVER: Diffusely hypoattenuating parenchyma. GALLBLADDER AND BILE DUCTS: Under distended gallbladder. Common bile duct is dilated measuring up to 9 mm which is stable from prior examination. No intrahepatic biliary duct dilatation. PANCREAS: Unremarkable. SPLEEN: Unremarkable. ADRENAL GLANDS: Unremarkable. KIDNEYS AND URETERS: No evidence of hydronephrosis or renal calculus. The kidneys enhance symmetrical ly. PELVIS BLADDER: Unremarkable REPRODUCTIVE: Unremarkable. ABDOMEN & PELVIS STOMACH AND BOWEL: Small hiatal hernia, duodenum is unremarkable. Postsurgical changes with left lowe r quadrant diverting colostomy. No organized fluid collection within the region of the stoma. No evid ence of bowel obstruction. PERITONEUM: No evidence of pneumoperitoneum or free fluid. VASCULATURE: No evidence of aortic aneurysm. MUSCULOSKELETAL: No acute osseous abnormalities. Mild degenerative disc disease most pronounced at L4 -L5 with endplate sclerosis, anterior osteophytosis, and vacuum disc disease. LYMPH NODES: No gross evidence for lymphadenopathy. SOFT TISSUE/ABDOMINAL WALL: Unremarkable IMPRESSION: 1. No acute abdominal/pelvic process. 2. Postsurgical changes with left lower quadrant colostomy. 3. Hepatic steatosis. 4. Stable dilatation of the common bile duct measuring up to 9 mm. No intrahepatic biliary ductal dil atation.
[2023-03-20] MEDS ORDERED: NALOXONE 0.4 MG/ML 1 ML VIAL IV PRN (16:46)
[2023-03-20] MEDS ORDERED: THIAMINE 100 MG/ML 2 ML VIAL IM STA (16:47)
[2023-03-20] MEDS ORDERED: LORazepam 0.5 MG TAB PO PRN (16:47)
[2023-03-20] MEDS: LORazepam 1 MG TAB PO PRN (17:04)
[2023-03-20] MEDS: ATORVASTATIN 20 MG TAB PO SCH (20:06)
[2023-03-20] MEDS: traZODone HCL 100 MG TAB PO PRN (21:12)
[2023-03-20] MEDS: GABAPENTIN 300 MG CAP PO SCH (21:12)
--- NOTE | 2023-03-21 08:37 | P.HPIM ---
History of Present Illness H&P Date: 03/20/23 Chief Complaint: Abdominal pain 57-year-old female, history of DVT, hypertension, anxiety, EtOH abuse, presents emergency department with concerns with abdominal pain. Onset of symptoms was a day or 2 ago. Patient does have history of colostomy placed a couple months ago. Patient is concerned regarding leaking of her colostomy bag as well. Patient is unclear last time she did change the colostomy bag. Patient states discomfort is coming from below the area of the ostomy. No nausea vomiting. Blood work completed in ED reveals a WBC of 4.3, hemoglobin of 10.8 and platelet count of 125, sodium 140, potassium 4.4, BUN/creatinine of 5/0.54 and blood glucose of 70, serum alcohol level of 449 CT of the abdomen completed reveals no acute abdominal or pelvic process; postsurgical changes with left lower quadrant colostomy; hepatic steatosis; stable CBD dilated patient with no intrahepatic biliary ductal dilatation -- Patient is being admitted for further treatment of alcohol intoxication/abuse Review of Systems REVIEW OF SYSTEMS: CONSTITUTIONAL: No fever, no malaise, no fatigue. HEENT: No recent visual problems or hearing problems. Denied any sore throat. CARDIOVASCULAR: No chest pain, orthopnea, PND, no palpitations, no syncope. PULMONARY: No shortness of breath, no cough, no hemoptysis. GASTROINTESTINAL: No diarrhea, no nausea, no vomiting, abdominal pain as per HPI. NEUROLOGICAL: No headaches, no weakness, no numbness. HEMATOLOGICAL: Denies any bleeding or petechiae. GENITOURINARY: Denies any burning micturition, frequency, or urgency. MUSCULOSKELETAL/RHEUMATOLOGICAL: Denies any joint pain, swelling, or any muscle pain. ENDOCRINE: Denies any polyuria or polydipsia. The rest of the 14-point review of systems is negative. Past Medical History Past Medical History: Deep Vein Thrombosis (DVT), Hypertension Additional Past Medical History / Comment(s): concussion History of Any Multi-Drug Resistant Organisms: None Reported Past Surgical History: No Surgical Hx Reported Additional Past Surgical History / Comment(s): jaw surgery, colostomy Past Anesthesia/Blood Transfusion Reactions: No Reported Reaction Past Psychological History: Anxiety, Depression Smoking Status: Former smoker Past Alcohol Use History: Abuse, Daily, Heavy Past Drug Use History: None Reported - Past Family History Father Additional Family Medical History / Comment(s): Spleen CA Mother Family Medical History: COPD Additional Family Medical History / Comment(s): empysema Medications and Allergies Home Medications Medication Instructions Recorded Confirmed Type Rivaroxaban [Xarelto] 20 mg PO DAILY 30 Days tab 01/19/22 03/20/23 Rx Folic Acid 1 mg PO DAILY tab 03/19/22 03/20/23 Rx Multivitamins, Thera [Multivitamin 1 tab PO DAILY 04/19/22 03/20/23 History (formulary)] Atorvastatin [Lipitor] 20 mg PO HS 11/23/22 03/20/23 History Furosemide [Lasix] 40 mg PO DAILY 11/23/22 03/20/23 History Gabapentin 600 mg PO TID 11/23/22 03/20/23 History Liraglutide [Saxenda] 3 mg SQ DAILY 11/23/22 03/20/23 History Sodium Chloride 0.65% Nasal [Deep 2 spr EA NOSTRIL QID PRN 11/23/22 03/20/23 History Sea (Saline)] Thiamine [Vitamin B-1] 100 mg PO BID 11/23/22 03/20/23 History Venlafaxine HCl [Effexor XR] 225 mg PO DAILY 11/23/22 03/20/23 History traZODone HCL [Desyrel] 200 mg PO HS PRN 11/23/22 03/20/23 History QUEtiapine [SEROquel] 50 mg PO HS PRN 30 Days #30 tab 11/29/22 03/20/23 Rx Magnesium Oxide [Magox 400] 400 mg PO DAILY 01/28/23 03/20/23 History Pantoprazole Sodium [Protonix] 20 mg PO DAILY 01/28/23 03/20/23 History Allergies Allergy/AdvReac Type Severity Reaction Status Date / Time bacitracin Allergy Rash/Hives Verified 03/20/23 17:21 cephalexin [From Keflex] Allergy Itching Verified 03/20/23 17:21 Physical Exam Vitals: Vital Signs Temp Pulse Resp BP Pulse Ox 03/20/23 14:20 97.7 F 80 18 139/89 94 L Intake and Output 03/20/23 03/20/23 03/20/23 06:59 14:59 22:59 Other: Weight 106.594 kg PHYSICAL EXAMINATION: GENERAL: The patient is alert and oriented x3, not in any acute distress. Well developed, well nourished. HEENT: Pupils are round and equally reacting to light. EOMI. No scleral icterus. No conjunctival pallor. Normocephalic, atraumatic. No pharyngeal erythema. No thyromegaly. CARDIOVASCULAR: S1 and S2 present. No murmurs, rubs, or gallops. PULMONARY: Chest is clear to auscultation, no wheezing or crackles. ABDOMEN: Soft, mild generalized tenderness, nondistended, normoactive bowel sounds. No palpable organomegaly. MUSCULOSKELETAL: No joint swelling or deformity. EXTREMITIES: No cyanosis, clubbing, or pedal edema. NEUROLOGICAL: Gross neurological examination did not reveal any focal deficits. SKIN: No rashes. Results CBC & Chem 7: 03/20/23 14:40 03/20/23 14:40 Labs: Abnormal Lab Results - Last 24 Hours (Table) 03/20/23 03/20/23 03/20/23 Range/Units 14:40 14:40 14:40 Hgb 10.8 L (11.4-16.0) gm/dL RDW 16.1 H (11.5-15.5) % Plt Count 125 L D (150-450) k/uL Lymphocytes # 0.9 L (1.0-4.8) k/uL APTT 20.4 L (22.0-30.0) sec BUN 5 L (7-17) mg/dL Glucose 70 L (74-99) mg/dL Calcium 8.1 L (8.4-10.2) mg/dL AST 224 H (14-36) U/L ALT 63 H (4-34) U/L Serum Alcohol 449 H* mg/dL Assessment and Plan Assessment: 1. Abdominal pain; etiology unclear - CT of the abdomen completed is negative for an acute abdominal or pelvic process - Patient received Bentyl 20 mg IM in ED which didn't help with the pain - Start patient on Protonix 40 mg daily 2. Alcohol intoxication with impending withdrawal; history of chronic alcohol abuse - Patient has been placed on IV fluids in form of normal saline at rate of 75 mL an hour; thiamine 100 mg daily - WA protocol with Ativan - Social service consult for resources at time of discharge 3. Chronic anemia; hemoglobin remains at baseline; patient was seen in ED on 01/29/2020 2018 with hemoglobin of 9.8; patient is at 10.8 this admission; we will continue to trend hemoglobin periodically 4. Thrombocytopenia; patient had normal white blood count 01/28/2023; likely related to alcohol abuse; we will trend CBC and plan to consult hematology if platelet count continues to trend down 5. Hepatic steatosis; patient counseled to avoid hepatotoxic medications and refrain from EtOH given existing liver pathology 6. Transaminitis; patient has an ESD elevated at 224 from 37 on previous admission; ALT is elevated at 63 which is new compared to last admission; likely related to EtOH abuse 7. Hyperlipidemia; patient takes Lipitor 20 mg daily at bedtime; we will plan to discontinue statin therapy if liver enzymes continue to trend up 5. History of DVT; continue with home dose of Xeralto DVT prophylaxis; SCDs/systemic anticoagulation CODE STATUS; full code
[2023-03-21 08:42] LABS: Basophils % (A) 0 %; Eosinophils # (A) 0.1 k/uL (0-0.7); Eosinophils % (A) 2 %; HGB 10.7 gm/dL (11.4-16.0); Hypochromasia Marked; Lymphocytes # (A) 0.6 k/uL (1.0-4.8); Lymphocytes % (A) 19 %; MCH 27.6 pg (25.0-35.0); MCHC 30.5 g/dL (31.0-37.0); MCV 90.4 fL (80.0-100.0); Mean Platelet Volume 8.1; Monocytes # (A) 0.2 k/uL (0-1.0); Monocytes % (A) 5 %; Neutrophils # (A) 2.3 k/uL (1.3-7.7); Neutrophils % (A) 74 %; RBC 3.87 m/uL (3.80-5.40); WBC 3.1 k/uL (3.8-10.6)
[2023-03-21 09:05] LABS: Platelet Count 87 k/uL (150-450)
[2023-03-21] MEDS ORDERED: ONDANSETRON 4 MG/2 ML VIAL IVP PRN (10:11)
[2023-03-21] MEDS: THIAMINE 100 MG TAB PO SCH (10:19)
[2023-03-21] MEDS: FUROSEMIDE 40 MG TAB PO SCH (10:19)
[2023-03-21] MEDS: RIVAROXABAN 20 MG TAB PO SCH (10:19)
[2023-03-21] MEDS: VENLAFAXINE HCL ER 75 MG CAP PO SCH (10:20)
[2023-03-21] MEDS: GABAPENTIN 300 MG CAP PO SCH ×3 (10:20→20:12)
[2023-03-21] MEDS: MULTIVITAMINS, THERA 1 EACH TAB PO SCH (10:20)
[2023-03-21] MEDS: MAGNESIUM OXIDE 400 MG TAB PO SCH (10:20)
[2023-03-21] MEDS: LORazepam 1 MG TAB PO PRN (10:21)
[2023-03-21] MEDS ORDERED: HYDROmorphone 0.5 MG/0.5 ML SYRINGE IVP STA (10:30)
[2023-03-21] MEDS: LIRAGLUTIDE 3 MG/0.5 ML SQ SCH (10:30)
[2023-03-21] MEDS ORDERED: HYDROcodone/APAP 5-325MG 1 EACH TAB PO PRN (10:31)
[2023-03-21] MEDS: FAMOTIDINE 20 MG/2 ML VIAL IV SCH (13:48)
[2023-03-21 13:58] LABS: Blood Urea Nitrogen 4.9 mg/dL (9.0-27.0); Calcium 8.8 mg/dL (8.7-10.3); Carbon Dioxide 19.8 mmol/L (21.6-31.8); Chloride 97 mmol/L (96-109); Glucose 64 mg/dL (70-110); Potassium 4.6 mmol/L (3.5-5.5); Sodium 137 mmol/L (135-145)
[2023-03-21 13:59] LABS: Bilirubin, Conjugated 0.34 mg/dL (0.20-0.40); Bilirubin,Unconjugated 0.76 mg/dL (0.20-1.00); Total Bilirubin 1.1 mg/dL (0.3-1.2)
[2023-03-21] MEDS: ATORVASTATIN 20 MG TAB PO SCH (20:12)
[2023-03-21] MEDS: traZODone HCL 100 MG TAB PO PRN (20:53)
[2023-03-22] MEDS: LORazepam 1 MG TAB PO PRN ×4 (01:30→10:52)
[2023-03-22] MEDS: THIAMINE 100 MG TAB PO SCH (08:43)
[2023-03-22] MEDS: FUROSEMIDE 40 MG TAB PO SCH (08:43)
[2023-03-22] MEDS: RIVAROXABAN 20 MG TAB PO SCH (08:43)
[2023-03-22] MEDS: GABAPENTIN 300 MG CAP PO SCH (08:43)
[2023-03-22] MEDS: VENLAFAXINE HCL ER 75 MG CAP PO SCH (08:43)
[2023-03-22] MEDS: MAGNESIUM OXIDE 400 MG TAB PO SCH (08:43)
[2023-03-22] MEDS: MULTIVITAMINS, THERA 1 EACH TAB PO SCH (08:43)
[2023-03-22] MEDS: LIRAGLUTIDE 3 MG/0.5 ML SQ SCH (08:44)
[2023-03-22] MEDS: FAMOTIDINE 20 MG/2 ML VIAL IV SCH (08:44)
[2023-03-22] MEDS ORDERED: LORazepam 2 MG/ML INJ IV PRN (13:43)
[2023-03-22] MEDS ORDERED: traZODone HCL 100 MG TAB PO PRN (13:45)
[2023-03-22] MEDS ORDERED: ACETAMINOPHEN TAB 325 MG TAB PO PRN (13:48)
[2023-03-22] MEDS: chlordiazePOXIDE 25 MG CAP PO SCH ×3 (14:24→19:49)
--- NOTE | 2023-03-22 15:38 | P.PN ---
Subjective Progress Note Date: 03/22/23 57-year-old female, history of DVT, hypertension, anxiety, EtOH abuse, presents emergency department with concerns with abdominal pain. Onset of symptoms was a day or 2 ago. Patient does have history of colostomy placed a couple months ago. Patient is concerned regarding leaking of her colostomy bag as well. Patient is unclear last time she did change the colostomy bag. Patient states discomfort is coming from below the area of the ostomy. No nausea vomiting. Blood work completed in ED reveals a WBC of 4.3, hemoglobin of 10.8 and platelet count of 125, sodium 140, potassium 4.4, BUN/creatinine of 5/0.54 and blood glucose of 70, serum alcohol level of 449 CT of the abdomen completed reveals no acute abdominal or pelvic process; postsurgical changes with left lower quadrant colostomy; hepatic steatosis; stable CBD dilated patient with no intrahepatic biliary ductal dilatation -- Patient is being admitted for further treatment of alcohol intoxication/abuse 03/22/2023 Patient seen and evaluated in follow-up currently with a clinical safety specialist at the bedside. Patient is maintained on CIWA protocol although orally and rather large doses and patient appears to become sedated sometimes and will adjust medications along with home medications that she is taking a number of high-dose [employer] agents. Patient denies chest pain or shortness of breath. Patient reports she can go home although per sitter at the bedside patient was requiring maximum 2 person assistance to get up and will have physical therapy evaluate the patient. Patient is currently afebrile with no reported shortness of breath or chest pain noted. Patient tolerating diet and recommend supervision with meals and aspiration precautions. Will await PT/OT therapy recommendations as patient lives alone and feels she is unsafe at this time for discharge home. Lengthy discussion was had about alcohol cessation. Patient reported she drank approximately one sixpack of beer per week. Per nursing staff she reported hard liquor as well as multiple beers daily. Patient will continue on CIWA protocol Review of systems: Constitutional: No reports of fatigue, fever, or chills Cardiovascular: No reports of chest pain or palpitations Respiratory: No reports of shortness of breath or cough GI: No reports of nausea, vomiting, or diarrhea : No reports of dysuria or retention Neurovascular: No reports of weakness or numbness All medications have been reviewed Physical exam: GENERAL: The patient is alert and oriented x2-3. Well developed, well nourished. HEENT: Pupils are round and equally reacting to light. EOMI. No scleral icterus. No conjunctival pallor. Normocephalic, atraumatic. No pharyngeal erythema. No thyromegaly. CARDIOVASCULAR: S1 and S2 muffled PULMONARY: Chest is clear to auscultation, no wheezing or crackles. ABDOMEN: Soft, obese, no tenderness, nondistended, normoactive bowel sounds. No palpable organomegaly. MUSCULOSKELETAL: No joint swelling or deformity. EXTREMITIES: No cyanosis, clubbing, or pedal edema. NEUROLOGICAL: Gross neurological examination did not reveal any focal deficits. Diffusely weak SKIN: No rashes. Assessment: -Abdominal pain; etiology unclear, possibly acute alcoholic gastritis -Alcohol intoxication with impending withdrawal; history of chronic alcohol abuse -Chronic anemia most likely secondary to continued excessive alcohol use -Thrombocytopenia; likely related to alcohol abuse -Hepatic steatosis -Transaminitis, likely related to alcohol abuse -Hyperlipidemia -History of DVT; continue with home dose of Xeralto -DVT prophylaxis; SCDs/systemic anticoagulation -GI prophylaxis -full code Plan: Recommend continue CIWA protocol although will adjust medications as patient is taking rather large doses of oral Ativan and becoming more sedated. Per nursing staff CIWA scale was recently 12 and given 2 mg oral Ativan and patient is now sedated Patient with significant weakness will have physical therapy evaluate the patient Will discuss further with case management/social work about discharge planning once physical therapy has evaluated the patient Patient reports she lives by herself in an apartment and will discuss further with social work about safe discharge planning Home medications as well need to be adjusted as patient is taking large doses of [employer] agents Await PT/OT therapy evaluation Prognosis is guarded The impression and plan of care has been dictated by Monica Banda, Nurse Practitioner as directed. Dr. Adelfo MD I have performed a history and examination and MDM of this patient, discussed the same with the dictator, and agree with the dictator's assessment and plan as written ,documented as a scribe. Based on total visit time, I have performed more than 50% of the visit. Objective - Vital Signs Vital signs: Vital Signs Temp 98.6 F 03/22/23 11:04 Pulse 102 H 03/22/23 11:04 Resp 16 03/22/23 11:04 BP 146/96 03/22/23 11:04 Pulse Ox 90 L 03/22/23 11:04 FiO2 Intake & Output 03/21/23 03/22/23 03/22/23 18:59 06:59 18:59 Other: # Voids 1 1 - Labs CBC & Chem 7: 03/21/23 08:05 03/21/23 08:05 Labs: Abnormal Lab Results - Last 24 Hours (Table) 03/21/23 03/21/23 Range/Units 08:05 08:05 Carbon Dioxide 19.8 L (21.6-31.8) mmol/L Anion Gap 20.20 H (4.00-12.00) mmol/L BUN 4.9 L (9.0-27.0) mg/dL Creatinine 0.5 L (0.6-1.5) mg/dL BUN/Creatinine Ratio 9.80 L (12.00-20.00) Ratio Glucose 64 L (70-110) mg/dL AST 178 H (13-35) U/L ALT 64 H (8-44) U/L Total Protein 6.0 L (6.2-8.2) d/dL
[2023-03-22] MEDS: ATORVASTATIN 20 MG TAB PO SCH (19:49)
[2023-03-23] MEDS: chlordiazePOXIDE 25 MG CAP PO SCH ×3 (09:32→20:43)
[2023-03-23] MEDS: THIAMINE 100 MG TAB PO SCH (09:32)
[2023-03-23] MEDS: MULTIVITAMINS, THERA 1 EACH TAB PO SCH (09:32)
[2023-03-23] MEDS: FUROSEMIDE 40 MG TAB PO SCH (09:32)
[2023-03-23] MEDS: FAMOTIDINE 20 MG/2 ML VIAL IV SCH (09:32)
[2023-03-23] MEDS: MAGNESIUM OXIDE 400 MG TAB PO SCH (09:32)
[2023-03-23] MEDS: LIRAGLUTIDE 3 MG/0.5 ML SQ SCH (09:33)
[2023-03-23] MEDS: RIVAROXABAN 20 MG TAB PO SCH (09:58)
[2023-03-23] MEDS: LORazepam 1 MG TAB PO PRN (12:47)
[2023-03-23 12:53] LABS: ALT 53 U/L (4-34); AST 101 U/L (14-36); African American GFR (CKD) >90 (>60 ml/min/1.73 sqM); Albumin 3.8 g/dL (3.5-5.0); Albumin/Globulin Ratio 1.5; Alkaline Phosphatase 55 U/L (38-126); Anion Gap 12 mmol/L; Blood Urea Nitrogen 3 mg/dL (7-17); Carbon Dioxide 27 mmol/L (22-30); Chloride 92 mmol/L (98-107); Globulin 2.6 g/dL; Glucose 102 mg/dL (74-99); Non-African American GFR(CKD) >90 (>60 ml/min/1.73 sqM); Potassium 3.5 mmol/L (3.5-5.1); Sodium 131 mmol/L (137-145); Total Bilirubin 1.1 mg/dL (0.2-1.3); Total Protein 6.4 g/dL (6.3-8.2)
--- NOTE | 2023-03-23 13:01 | CDI ---
Documentation Clarification Form Date: 03/23/2023 12:57:27 PM From: Margot Etienne RN, CCDS Email: [email or web address] Admit Date: 03/20/2023 04:46:00 PM Patient Name: Brandi Lara Visit Number: [id number] Discharge Date: ATTENTION: The Clinical Documentation Specialists (CDI) and [facility] Coding Staff appreciate your assistance in clarifying documentation. Please respond to the clarification below the line at the bottom and electronically sign. The CDI & [facility] Coding staff will review the response and follow-up if needed. Please note: Queries are made part of the Legal Health Record. If you have any questions, please contact the author of this message via ITS. Dr. Dinorah Neves Altered Mental Status is documented as a differential diagnosis in the ED note. Additional clarification regarding the etiology/cause of this symptom is requested. History/Risk Factors: ETOH abuse with intoxication on admission, colostomy, DVT, HTN, anxiety, depression Clinical Indicators: 03/20 Serum alcohol: 449 03/22 IM: "Recommend continue CIWA protocol although will adjust medications as patient is taking rather large doses of oral Ativan and becoming more sedated. Per nursing staff CIWA scale was recently 12 and given 2 mg oral Ativan and patient is now sedated. Home medications as well need to be adjusted as patient is taking large doses of [employer] agents." 03/21 HR 111; 03/22 HR 112 03/22-03/23 Nursing note: moderate severe hallucination. Treatment: Adjust medication dosages. Ativan per CIWA protocol. Sitter. Please clarify the etiology of the symptom of Altered Mental Status: [ ] Toxic Encephalopathy due to medications [ ] ETOH withdrawal only [ ] Other condition (please specify) [ ] Unable to determine Response found in progress notes and discharge summary by Dr. Emanuel: Altered mental status, multifactorial likely secondary to EtOH with acute withdrawal as well as medication effect, toxic/metabolic encephalopathy, improved/[place] MTDD
--- NOTE | 2023-03-23 15:18 | P.PN ---
Subjective Progress Note Date: 03/23/23 57-year-old female, history of DVT, hypertension, anxiety, EtOH abuse, presents emergency department with concerns with abdominal pain. Onset of symptoms was a day or 2 ago. Patient does have history of colostomy placed a couple months ago. Patient is concerned regarding leaking of her colostomy bag as well. Patient is unclear last time she did change the colostomy bag. Patient states discomfort is coming from below the area of the ostomy. No nausea vomiting. Blood work completed in ED reveals a WBC of 4.3, hemoglobin of 10.8 and platelet count of 125, sodium 140, potassium 4.4, BUN/creatinine of 5/0.54 and blood glucose of 70, serum alcohol level of 449 CT of the abdomen completed reveals no acute abdominal or pelvic process; postsurgical changes with left lower quadrant colostomy; hepatic steatosis; stable CBD dilated patient with no intrahepatic biliary ductal dilatation -- Patient is being admitted for further treatment of alcohol intoxication/abuse 03/22/2023 Patient seen and evaluated in follow-up currently with a director employee safety and health at the bedside. Patient is maintained on CIWA protocol although orally and rather large doses and patient appears to become sedated sometimes and will adjust medications along with home medications that she is taking a number of high-dose NEUROSURGEON agents. Patient denies chest pain or shortness of breath. Patient reports she can go home although per sitter at the bedside patient was requiring maximum 2 person assistance to get up and will have physical therapy evaluate the patient. Patient is currently afebrile with no reported shortness of breath or chest pain noted. Patient tolerating diet and recommend supervision with meals and aspiration precautions. Will await PT/OT therapy recommendations as patient lives alone and feels she is unsafe at this time for discharge home. Lengthy discussion was had about alcohol cessation. Patient reported she drank approximately one sixpack of beer per week. Per nursing staff she reported hard liquor as well as multiple beers daily. Patient will continue on CIWA protocol 03/23/2023 Patient is seen this morning in follow-up appears more calm and awake although continues with significant weakness. Patient was seen and evaluated by physical therapy and normally lives at home and family is concerned she will not be able to take care of herself. Patient and family now agreeable to rehab with case management following and will work on insurance authorization and accepting ECF. Physical therapy at recommend subacute rehab for strength and mobility. Patient will continue Librium taper and CIWA protocol as needed. Encouraged to increase activity as tolerated and encourage oral intake. Adjustments to medications have been made and strongly recommend outpatient follow-up with primary care provider to continue to monitor medications and adjustments in the outpatient setting. Patient is afebrile with no reports of chest pain or shortness of breath. Patient is tolerating diet and would recommend aspiration precautions and head of the bed elevated 30-45. Patient with no reported nausea or vomiting. Review of systems: Constitutional: No reports of fatigue, fever, or chills Cardiovascular: No reports of chest pain or palpitations Respiratory: No reports of shortness of breath or cough GI: No reports of nausea, vomiting, or diarrhea : No reports of dysuria or retention Neurovascular: reports of generalized weakness All medications have been reviewed Physical exam: GENERAL: The patient is alert and oriented x2-3. Well developed, well nourished. Obese. HEENT: Pupils are round and equally reacting to light. EOMI. No scleral icterus. No conjunctival pallor. Normocephalic, atraumatic. No pharyngeal erythema. No thyromegaly. CARDIOVASCULAR: S1 and S2 muffled PULMONARY: Chest is clear to auscultation, no wheezing or crackles. ABDOMEN: Soft, obese, no tenderness, nondistended, normoactive bowel sounds. No palpable organomegaly. MUSCULOSKELETAL: No joint swelling or deformity. EXTREMITIES: No cyanosis, clubbing, or pedal edema. NEUROLOGICAL: Gross neurological examination did not reveal any focal deficits. Diffusely weak SKIN: No rashes. Assessment: -Abdominal pain; etiology unclear, possibly acute alcoholic gastritis -Alcohol intoxication with impending withdrawal; history of chronic alcohol abuse -Altered mental status, multifactorial likely secondary to EtOH with acute withdrawal as well as medication effect, toxic/metabolic encephalopathy -Chronic anemia most likely secondary to continued excessive alcohol use -Thrombocytopenia; likely related to alcohol abuse -Hepatic steatosis -Transaminitis, likely related to alcohol abuse -Hyperlipidemia -Gait dysfunction -History of DVT; continue with home dose of Xeralto -DVT prophylaxis; SCDs/systemic anticoagulation -GI prophylaxis -full code Plan: Recommend continue CIWA protocol, adjustments to medications have been made including her home medications as she was taking large doses of NEUROSURGEON agents and recommend outpatient follow-up to continue weaning as tolerated Patient with significant weakness will have physical therapy evaluate the patient. PT evaluated the patient recommending subacute rehab and initially patient wanted to go home although sister evaluated the patient today reporting she is unable to go home as she lives alone and will not be able to take care of herself. Case management following and patient is now agreeable to rehab at [facility]. Currently working on accepting facilities and will require insurance authorization Prognosis is guarded Possible discharge in the next 24-48 hours The impression and plan of care has been dictated by Monica Banda, Nurse Practitioner as directed. Dr. Adelfo MD I have performed a history and examination and MDM of this patient, discussed the same with the dictator, and agree with the dictator's assessment and plan as written ,documented as a scribe. Based on total visit time, I have performed more than 50% of the visit. Objective - Vital Signs Vital signs: Vital Signs Temp 97.7 F 03/23/23 07:23 Pulse 95 03/23/23 07:23 Resp 19 03/23/23 07:23 BP 136/88 03/23/23 07:23 Pulse Ox 93 L 03/23/23 07:23 FiO2 Intake & Output 03/22/23 03/23/23 03/23/23 18:59 06:59 18:59 Other: # Voids 2 1 - Labs CBC & Chem 7: 03/21/23 08:05 03/23/23 11:17 Labs: Abnormal Lab Results - Last 24 Hours (Table) 03/23/23 Range/Units 11:17 Sodium 131 L (137-145) mmol/L Chloride 92 L (98-107) mmol/L BUN 3 L (7-17) mg/dL Creatinine 0.47 L (0.52-1.04) mg/dL Glucose 102 H (74-99) mg/dL AST 101 H (14-36) U/L ALT 53 H (4-34) U/L
[2023-03-23] MEDS: ATORVASTATIN 20 MG TAB PO SCH (20:43)
[2023-03-24] MEDS: FAMOTIDINE 20 MG/2 ML VIAL IV SCH (08:40)
[2023-03-24] MEDS: chlordiazePOXIDE 25 MG CAP PO SCH ×3 (08:41→20:54)
[2023-03-24] MEDS: THIAMINE 100 MG TAB PO SCH (08:41)
[2023-03-24] MEDS: LIRAGLUTIDE 3 MG/0.5 ML SQ SCH (08:41)
[2023-03-24] MEDS: MAGNESIUM OXIDE 400 MG TAB PO SCH (08:41)
[2023-03-24] MEDS: FUROSEMIDE 40 MG TAB PO SCH (08:41)
[2023-03-24] MEDS: MULTIVITAMINS, THERA 1 EACH TAB PO SCH (08:41)
[2023-03-24] MEDS: RIVAROXABAN 20 MG TAB PO SCH (08:42)
--- NOTE | 2023-03-24 14:14 | P.PN ---
Subjective Progress Note Date: 03/24/23 57-year-old female, history of DVT, hypertension, anxiety, EtOH abuse, presents emergency department with concerns with abdominal pain. Onset of symptoms was a day or 2 ago. Patient does have history of colostomy placed a couple months ago. Patient is concerned regarding leaking of her colostomy bag as well. Patient is unclear last time she did change the colostomy bag. Patient states discomfort is coming from below the area of the ostomy. No nausea vomiting. Blood work completed in ED reveals a WBC of 4.3, hemoglobin of 10.8 and platelet count of 125, sodium 140, potassium 4.4, BUN/creatinine of 5/0.54 and blood glucose of 70, serum alcohol level of 449 CT of the abdomen completed reveals no acute abdominal or pelvic process; postsurgical changes with left lower quadrant colostomy; hepatic steatosis; stable CBD dilated patient with no intrahepatic biliary ductal dilatation -- Patient is being admitted for further treatment of alcohol intoxication/abuse 03/22/2023 Patient seen and evaluated in follow-up currently with a chief of safety and protection at the bedside. Patient is maintained on CIWA protocol although orally and rather large doses and patient appears to become sedated sometimes and will adjust medications along with home medications that she is taking a number of high-dose SODA WORKER agents. Patient denies chest pain or shortness of breath. Patient reports she can go home although per sitter at the bedside patient was requiring maximum 2 person assistance to get up and will have physical therapy evaluate the patient. Patient is currently afebrile with no reported shortness of breath or chest pain noted. Patient tolerating diet and recommend supervision with meals and aspiration precautions. Will await PT/OT therapy recommendations as patient lives alone and feels she is unsafe at this time for discharge home. Lengthy discussion was had about alcohol cessation. Patient reported she drank approximately one sixpack of beer per week. Per nursing staff she reported hard liquor as well as multiple beers daily. Patient will continue on CIWA protocol 03/23/2023 Patient is seen this morning in follow-up appears more calm and awake although continues with significant weakness. Patient was seen and evaluated by physical therapy and normally lives at home and family is concerned she will not be able to take care of herself. Patient and family now agreeable to rehab with case management following and will work on insurance authorization and accepting ECF. Physical therapy at recommend subacute rehab for strength and mobility. Patient will continue Librium taper and CIWA protocol as needed. Encouraged to increase activity as tolerated and encourage oral intake. Adjustments to medications have been made and strongly recommend outpatient follow-up with primary care provider to continue to monitor medications and adjustments in the outpatient setting. Patient is afebrile with no reports of chest pain or shortness of breath. Patient is tolerating diet and would recommend aspiration precautions and head of the bed elevated 30-45. Patient with no reported nausea or vomiting. 03/24/2023 Patient is seen this morning more awake and alert still with significant weakness physical therapy recommending subacute rehab and case management working on accepting ECF. Patient will be going to [facility] and requires an insurance authorization which has been submitted and currently pending. Patient is afebrile maintained on CIWA protocol as needed as well as Librium taper and will adjust medications starting tomorrow. Encouraged incre ase activity as tolerated and oral intake. Home medications have been titrated as well and will need close outpatient follow-up with primary care provider to reestablish with these medications and adjust accordingly. Patient was taking a number of SODA WORKER agents and did have significant grogginess. Patient's mentation is improving. Patient is afebrile with no reports of chest pain or shortness of breath. Patient denies any nausea or vomiting and is tolerating diet. Review of systems: Constitutional: No reports of fatigue, fever, or chills Cardiovascular: No reports of chest pain or palpitations Respiratory: No reports of shortness of breath or cough GI: No reports of nausea, vomiting, or diarrhea : No reports of dysuria or retention Neurovascular: reports of generalized weakness All medications have been reviewed Physical exam: GENERAL: The patient is alert and oriented x2-3. Well developed, well nourished. Obese. HEENT: Pupils are round and equally reacting to light. EOMI. No scleral icterus. No conjunctival pallor. Normocephalic, atraumatic. No pharyngeal erythema. No t hyromegaly. CARDIOVASCULAR: S1 and S2 muffled PULMONARY: Chest is clear to auscultation, no wheezing or crackles. ABDOMEN: Soft, obese, no tenderness, nondistended, normoactive bowel sounds. No palpable organomegaly. MUSCULOSKELETAL: No joint swelling or deformity. EXTREMITIES: No cyanosis, clubbing, or pedal edema. NEUROLOGICAL: Gross neurological examination did not reveal any focal deficits. Diffusely weak SKIN: No rashes. Assessment: -Abdominal pain; etiology unclear, possibly acute alcoholic gastritis, improving -Alcohol intoxication with impending withdrawal; history of chronic alcohol abuse -Altered mental status, multifactorial likely secondary to EtOH with acute withdrawal as well as medication effect, toxic/metabolic encephalopathy -Chronic anemia most likely secondary to continued excessive alcohol use -Thrombocytopenia; likely related to alcohol abuse -Hepatic steatosis -Transaminitis, likely related to alcohol abuse -Hyperlipidemia -Gait dysfunction -History of DVT; continue with home dose of Xeralto -DVT prophylaxis; SCDs/systemic anticoagulation -GI prophylaxis -full code Plan: Recommend continue CIWA protocol, adjustments to medications have been made in cluding her home medications as she was taking large doses of SODA WORKER agents and recommend outpatient follow-up to continue weaning as tolerated PT evaluated the patient recommending subacute rehab and initially patient wanted to go home although sister evaluated the patient today reporting she is unable to go home as she lives alone and will not be able to take care of herself. Case management following and patient is now agreeable to rehab at [facility]. [facility] has accepted the patient and currently awaiting insurance authorization. Encouraged increase activity as tolerated and continued oral intake Will continue Librium taper and titrate the dose tomorrow Prognosis is guarded Possible discharge in the next 24 hours The impression and plan of care has been dictated by Monica Banda, Nurse Practitioner as directed. Dr. Adelfo MD I have performed a history and examination and MDM of this patient, discussed the same with the dictator, and agree with the dictator's assessment and plan as written ,documented as a scribe. Based on total visit time, I have performed more than 50% of the visit. Objective - Vital Signs Vital signs: Vital Signs Temp 98.0 F 03/24/23 07:20 Pulse 88 03/24/23 07:20 Resp 18 03/24/23 07:20 BP 125/85 03/24/23 07:20 Pulse Ox 94 L 03/24/23 07:20 FiO2 Intake & Output 03/23/23 03/24/23 03/24/23 18:59 06:59 18:59 Other: # Voids 2 1 1 - Labs CBC & Chem 7: 03/21/23 08:05 03/23/23 11:17
[2023-03-24] MEDS: ATORVASTATIN 20 MG TAB PO SCH (20:54)
[2023-03-25] MEDS: FAMOTIDINE 20 MG/2 ML VIAL IV SCH (08:06)
[2023-03-25] MEDS: MAGNESIUM OXIDE 400 MG TAB PO SCH (09:18)
[2023-03-25] MEDS: chlordiazePOXIDE 25 MG CAP PO SCH ×2 (09:18→15:56)
[2023-03-25] MEDS: LIRAGLUTIDE 3 MG/0.5 ML SQ SCH (09:18)
[2023-03-25] MEDS: THIAMINE 100 MG TAB PO SCH (09:19)
[2023-03-25] MEDS: RIVAROXABAN 20 MG TAB PO SCH (09:19)
[2023-03-25] MEDS: MULTIVITAMINS, THERA 1 EACH TAB PO SCH (09:19)
[2023-03-25] MEDS: FUROSEMIDE 40 MG TAB PO SCH (09:19)
--- NOTE | 2023-03-25 12:47 | P.DS ---
Providers Date of admission: 03/20/23 16:46 Expected date of discharge: 03/25/23 Attending physician: Dinorah Neves MD Primary care physician: Constantine Figueroa Hospital Course: Final diagnosis -Abdominal pain; etiology unclear, possibly acute alcoholic gastritis, improving -Alcohol intoxication with impending withdrawal; history of chronic alcohol abuse -Altered mental status, multifactorial likely secondary to EtOH with acute withd corey as well as medication effect, toxic/metabolic encephalopathy, improved -Chronic anemia most likely secondary to continued excessive alcohol use -Thrombocytopenia; likely related to alcohol abuse -Hepatic steatosis -Transaminitis, likely related to alcohol abuse -Hyperlipidemia -Gait dysfunction -History of DVT; continue with home dose of Xeralto -DVT prophylaxis; SCDs/systemic anticoagulation -GI prophylaxis -full code Discharge disposition Patient is being discharged in a stable condition with guarded prognosis to [facility]. Patient will follow-up with Dr. Figueroa in the outpatient setting upon discharge. Patient is to follow-up with psychiatry outpatient once discharged from rehab as scheduled. Total time taken is greater than 35 minutes. Hospital course This is a 57-year-old female who was recently admitted with EtOH intoxication with acute delirium tremens being closely monitored. Patient also maintained on CIWA protocol and started on Librium taper and will continue 25 mg twice daily for 1 day, then 25 mg daily tomorrow and then discontinue and patient has not required IV Ativan. Patient with significant weakness evaluated by physical therapy recommending subacute rehab and patient is agreeable. Patient has been accepted at [facility] and will be discharged today. Encouraged complete alcohol cessation and avoid all alcohol exposure. Currently no reports of chest pain, shortness of breath, or palpitations. Patient is afebrile. No reports of nausea or vomiting and patient is tolerating diet. Patient will be going to [facility] today. Guarded prognosis. Patient is high risk for readmission given patient's significant comorbidities and noncompliance for alcohol cessation Physical exam: Gen: This is a 57-year-old female who is awake, alert and oriented 3, well- developed, well-nourished, obese HEENT: Head is atraumatic, normocephalic. Pupils equal, round. Sclerae is anicteric. NECK: Supple. No JVD. No lymphadenopathy. No thyromegaly. LUNGS: Clear to auscultation. No wheezes or rhonchi. No intercostal retractions. HEART: Regular rate and rhythm. No murmur. ABDOMEN: Soft. Obese. Bowel sounds are present. No masses. No tenderness. EXTREMITIES: No pedal edema. No calf tenderness. NEUROLOGICAL: Patient is awake, alert and oriented x3. Cranial nerves 2 through 12 are grossly intact. Diffusely weak Please refer to medication reconciliation sheet for a list of medications. The impression and plan of care has been dictated by Monica Banda, Nurse Practitioner as directed. Dr. Adelfo MD I have performed a history and examination and MDM of this patient, discussed the same with the dictator, and agree with the dictator's assessment and plan as written ,documented as a scribe. Based on total visit time, I have performed more than 50% of the visit. Patient Condition at Discharge: Fair Plan - Discharge Summary Discharge Rx Participant: No New Discharge Prescriptions: New Acetaminophen Tab [Tylenol] 650 mg PO Q6HR PRN tab PRN Reason: Fever And/ Or Pain chlordiazePOXIDE HCl [Librium] 25 mg PO BID 2 Days #3 capsule Continue Rivaroxaban [Xarelto] 20 mg PO DAILY 30 Days tab Folic Acid 1 mg PO DAILY tab Multivitamins, Thera [Multivitamin (formulary)] 1 tab PO DAILY Furosemide [Lasix] 40 mg PO DAILY Magnesium Oxide [Magox 400] 400 mg PO DAILY Pantoprazole Sodium [Protonix] 20 mg PO DAILY Thiamine [Vitamin B-1] 100 mg PO BID Sodium Chloride 0.65% Nasal [Deep Sea (Saline)] 2 spr EA NOSTRIL QID PRN PRN Reason: Allergy Symptoms Liraglutide [Saxenda] 3 mg SQ DAILY Atorvastatin [Lipitor] 20 mg PO HS QUEtiapine [SEROquel] 50 mg PO HS PRN 30 Days #30 tab PRN Reason: Agitation Or Acute Psychosis Changed traZODone HCL [Desyrel] 50 mg PO HS PRN #0 PRN Reason: Insomnia Discontinued Gabapentin 600 mg PO TID Venlafaxine HCl [Effexor XR] 225 mg PO DAILY Discharge Medication List Rivaroxaban [Xarelto] 20 mg PO DAILY 30 Days tab 01/19/22 [Rx] Folic Acid 1 mg PO DAILY tab 03/19/22 [Rx] Multivitamins, Thera [Multivitamin (formulary)] 1 tab PO DAILY 04/19/22 [History] Atorvastatin [Lipitor] 20 mg PO HS 11/23/22 [History] Furosemide [Lasix] 40 mg PO DAILY 11/23/22 [History] Liraglutide [Saxenda] 3 mg SQ DAILY 11/23/22 [History] Sodium Chloride 0.65% Nasal [Deep Sea (Saline)] 2 spr EA NOSTRIL QID PRN [History] Thiamine [Vitamin B-1] 100 mg PO BID 11/23/22 [History] QUEtiapine [SEROquel] 50 mg PO HS PRN 30 Days #30 tab 11/29/22 [Rx] Magnesium Oxide [Magox 400] 400 mg PO DAILY 01/28/23 [History] Pantoprazole Sodium [Protonix] 20 mg PO DAILY 01/28/23 [History] Acetaminophen Tab [Tylenol] 650 mg PO Q6HR PRN tab 03/23/23 [Rx] traZODone HCL [Desyrel] 50 mg PO HS PRN #0 03/23/23 [Rx] chlordiazePOXIDE HCl [Librium] 25 mg PO BID 2 Days #3 capsule 03/25/23 [Rx] Follow up Appointment(s)/Referral(s): Constantine Figueroa DO [Primary Care Provider] - 04/02/23 3:45 pm Activity/Diet/Wound Care/Special Instructions: Activity Limited until follow-up Follow-up with primary care provider on discharge Discuss medication adjustments Follow-up [facility] outpatient Continue with Librium taper Avoid all alcohol use and exposure Need to go to alcohol rehab Discharge/Stand Alone Forms: AA Meetings [facility], Community Resources, Help In The Home, Inp Substance Abuse Facilities Discharge Disposition: TRANSFER TO SNF/ECF
[2023-03-25 13:02] VITALS: BP 105/71; PULSE 90; RESP 18; TEMP 97.7
== END 2023-03-25 17:41 | DRG 241 ==
LOC: EC 14:12 → OBSVTOIN 16:46 → 5NMEDONC 16:46
PROVIDERS: ADMIT Internal Medicine; ATTEND Internal Medicine
DX: K29.20 Alcoholic gastritis without bleeding (principal); D64.9 Anemia, unspecified; F10.229 Alcohol dependence with intoxication, unspecified; D69.59 Other secondary thrombocytopenia; E78.5 Hyperlipidemia, unspecified; F32.A Depression, unspecified; G92.8 Other toxic encephalopathy; Z93.3 Colostomy status; F41.9 Anxiety disorder, unspecified; I10 Essential (primary) hypertension; K76.0 Fatty (change of) liver, not elsewhere classified; Y90.8 Blood alcohol level of 240 mg/100 ml or more; Z79.01 Long term (current) use of anticoagulants; Z79.899 Other long term (current) drug therapy; Z82.5 Family history of asthma and other chronic lower respiratory diseases; Z86.718 Personal history of other venous thrombosis and embolism; Z91.199 Patient's noncompliance with other medical treatment and regimen due to unspecified reason; Z88.1 Allergy status to other antibiotic agents
CPT/HCPCS: 36415; 74177; 80048; 80053; 80076; 80320; 82150; 83690; 85025; 85610; 85730; 96360; 96361; 96372; 99285

== ENCOUNTER 2023-04-26 14:41 | Inpatient (IN) | payer OTHER ==
[2023-04-26] MEDS ORDERED: SODIUM CHLORIDE 0.9% 1,000 ML IV STA (16:18)
--- NOTE | 2023-04-26 16:26 | ED ---
Abdominal Pain HPI - General Chief Complaint: Abdominal Pain Stated Complaint: post op abd pain Time Seen by Provider: 04/26/23 15:46 Source: patient, RN notes reviewed Mode of arrival: ambulatory Limitations: no limitations - History of Present Illness Initial Comments: This is a pleasant 57-year-old female presents today with 3 days of abdominal pain. Patient had surgery in the spring after having a ruptured bowel. Patient ended up with a colostomy. That surgery was done at [facility]. Denying any nausea or vomiting. Patient denies any changes in urination. Patient has been changing her colostomy bag as directed but states she is getting leaking from around the current headache. Denies any chest pain or shortness of breath. No fever or chills. No headache, no fever or chills, no changes in vision or hearing, no sore throat or difficulty with speech, no neck pain, no chest pain or shortness of breath, no nausea or vomiting, no changes in urination or bowel movements, no numbness or tingling, no extremity pain, no skin rashes or lesions. Past medical, surgical, social, and family history reviewed. MD Complaint: abdominal pain - Related Data Home Medications Medication Instructions Recorded Confirmed Multivitamins, Thera [Multivitamin 1 tab PO DAILY 04/19/22 03/20/23 (formulary)] Atorvastatin [Lipitor] 20 mg PO HS 11/23/22 03/20/23 Furosemide [Lasix] 40 mg PO DAILY 11/23/22 03/20/23 Liraglutide [Saxenda] 3 mg SQ DAILY 11/23/22 03/20/23 Sodium Chloride 0.65% Nasal [Deep 2 spr EA NOSTRIL QID PRN 11/23/22 03/20/23 Sea (Saline)] Thiamine [Vitamin B-1] 100 mg PO BID 11/23/22 03/20/23 Magnesium Oxide [Magox 400] 400 mg PO DAILY 01/28/23 03/20/23 Pantoprazole Sodium [Protonix] 20 mg PO DAILY 01/28/23 03/20/23 Previous Rx's Medication Instructions Recorded Rivaroxaban [Xarelto] 20 mg PO DAILY 30 Days tab 01/19/22 Folic Acid 1 mg PO DAILY tab 03/19/22 QUEtiapine [SEROquel] 50 mg PO HS PRN 30 Days #30 tab 11/29/22 Acetaminophen Tab [Tylenol] 650 mg PO Q6HR PRN tab 03/23/23 traZODone HCL [Desyrel] 50 mg PO HS PRN #0 03/23/23 chlordiazePOXIDE HCl [Librium] 25 mg PO BID 2 Days #3 capsule 03/25/23 Allergies Allergy/AdvReac Type Severity Reaction Status Date / Time bacitracin Allergy Rash/Hives Verified 03/20/23 17:21 cephalexin [From Keflex] Allergy Itching Verified 03/20/23 17:21 Review of Systems ROS Statement: Those systems with pertinent positive or pertinent negative responses have been documented in the HPI. ROS Other: All systems not noted in ROS Statement are negative. Past Medical History Past Medical History: Deep Vein Thrombosis (DVT), Hypertension Additional Past Medical History / Comment(s): concussion History of Any Multi-Drug Resistant Organisms: None Reported Past Surgical History: No Surgical Hx Reported Additional Past Surgical History / Comment(s): jaw surgery, colostomy Past Anesthesia/Blood Transfusion Reactions: No Reported Reaction Past Psychological History: Anxiety, Depression Smoking Status: Former smoker Past Alcohol Use History: Abuse, Daily, Heavy Past Drug Use History: None Reported - Past Family History Father Additional Family Medical History / Comment(s): Spleen CA Mother Family Medical History: COPD Additional Family Medical History / Comment(s): empysema General Exam - General Exam Comments Initial Comments: Vital signs stable, patient afebrile. ST acuity was 94% however the patient has no tachypnea or increased work of breathing. Mild distress. Limitations: no limitations General appearance: alert, in no apparent distress Head exam: Present: atraumatic, normocephalic, normal inspection Eye exam: Present: normal appearance, PERRL, EOMI. Absent: scleral icterus, conjunctival injection, periorbital swelling ENT exam: Present: normal exam, mucous membranes moist Neck exam: Present: normal inspection. Absent: tenderness, meningismus, lymphadenopathy Respiratory exam: Present: normal lung sounds bilaterally. Absent: respiratory distress, wheezes, rales, rhonchi, stridor, chest wall tenderness, accessory muscle use Cardiovascular Exam: Present: regular rate, normal rhythm, normal heart sounds. Absent: systolic murmur, diastolic murmur, rubs, gallop, clicks GI/Abdominal exam: Present: soft, distended (Mild), tenderness (Mild tenderness in the area of the left lower mid abdomen. Colostomy bag noted. Patient has quite a bit of skin inflammation around the colostomy site. There is drainage noted. There is some mild distention. No guarding or rebound.), normal bowel sounds. Absent: guarding, rebound, rigid, bruit, pulsatile mass Extremities exam: Present: normal inspection, full ROM, normal capillary refill. Absent: tenderness, pedal edema, joint swelling, calf tenderness Back exam: Present: normal inspection Neurological exam: Present: alert, oriented X3, CN II-XII intact Psychiatric exam: Present: normal affect, normal mood Skin exam: Present: warm, dry, intact, normal color. Absent: rash Course Vital Signs 04/26/23 04/26/23 04/26/23 14:54 16:20 17:04 Temperature 98.1 F 98.0 F Pulse Rate 91 84 93 Respiratory 18 18 20 Rate Blood Pressure 132/86 115/71 112/57 O2 Sat by Pulse 94 L 97 95 Oximetry 04/26/23 18:11 Temperature Pulse Rate 86 Respiratory 17 Rate Blood Pressure 120/83 O2 Sat by Pulse 95 Oximetry - Reevaluation(s) Reevaluation #1: 04/26/23 17:13 Patient reevaluated, lactic acid 5.1. Repeat fluid bolus ordered. Alcohol level in excess of 300 04/26/23 17:15 Reevaluation #2: 04/26/23 17:33 Patient's elevated lactic acid of 5.1 likely related to alcohol intoxication and alcoholism patient does not meet systemic inflammatory response syndrome criteria. Unlikely to be sepsis. Medical Decision Making - Medical Decision Making Was pt. sent in by a medical professional or institution? @ -no Did you speak to anyone other than the patient for history? @ -No Did you review nursing and triage notes? @ -Agree Were old charts reviewed? @ -Reviewed charts from previous admissions. Reviewed old laboratory values Differential Diagnosis? @ -Differential diagnosis includes but not limited to:Alcohol intoxication, bowel obstruction, enteritis, diverticulitis, pain in the ostomy site. Does not appear to be consistent with sepsis. Does not appear to be consistent with significant systemic disease as the patient's vital signs are stable. Not consistent with cardiopulmonary disease. EKG interpreted by me (3pts min.)? @ -ECG independently interpreted by me at 1545 reveals baseline artifact in several leads. Poor study. Patient does appear to have P waves on this EKG. There is no R to R variability. No evidence of ST elevation or depression. [employer] is normal. We'll attempt to obtain a better study. X-rays interpreted by me (1pt min.)? @ - CT interpreted by me (1pt min.)? @ -Independent interpretation of the computed tomography scan by me shows evidence of postsurgical changes. No definitive acute pathology. Reviewed radiology interpretation. U/S interpreted by me (1pt. min.)? @ -[none] What testing was considered but not performed? (CT, X-rays, U/S, labs)? Why? @4 cultures were considered, although the patient appears to have no evidence of sepsis. Lactic acidosis likely related to alcohol intoxication and alcoholism. What meds were considered but not given? Why? @ -[none] Did you discuss the management of the patient with other professionals? @ -Discussed with the nurse practitioner from [facility], Monica Banda Did you reconcile home meds? @ -Reviewed and reconciled Was smoking cessation discussed for >3mins.? @ -[none] Was critical care preformed (if so, how long)? @ -[none] Were there social determinants of health that impacted care today? How? (Homelessness, low income, unemployed, alcoholism, drug addiction, transportation, low edu. Level, literacy, decrease access to med. care, penitentiary, rehab)? @ -Alcoholism Was there de-escalation of care discussed even if they declined? (Discuss DNR or withdrawal of care, Hospice)? @ -[Discuss DNR or withdrawal of care, Hospice?] What co-morbidities impacted this encounter? (DM, HTN, Smoking, COPD, CAD, Cancer, CVA, Hep., AIDS, mental health diagnosis, sleep apnea, morbid obesity)? @ -alcoholism Was patient admitted / discharged? @ -Admitted, patient remained stable. Undiagnosed new problem with uncertain prognosis? @ -Alcoholism, previous diagnosis made. Prognosis is guarded given the p atient's recurrent bouts of intoxication Drug Therapy requiring intensive monitoring for toxicity (Heparin, Nitro, Insulin, Cardizem)? @ -[none] Were any procedures done? @ -[none] Diagnosis/symptom? @ -Alcohol intoxication, dehydration, lactic acidosis, abdominal pain Acute, or Chronic, or Acute on Chronic? @ -Acute on chronic, acute dehydration, lactic acidosis, chronic abdominal pain Uncomplicated (without systemic symptoms) or Complicated (systemic symptoms)? @ -Complicated by comorbidities Side effects of treatment? @ -[none] Exacerbation, Progression, or Severe Exacerbation] @ -Exacerbation Poses a threat to life or bodily function? @ -Possible [facility] The case was discussed in detail with ED attending physician. Presentation, findings, treatment plan discussed in detail. - Lab Data Result diagrams: 04/26/23 16:14 04/26/23 16:14 Lab Results 04/26/23 04/26/23 04/26/23 Range/Units 16:12 16:14 16:14 WBC 3.9 (3.8-10.6) k/uL RBC 4.14 (3.80-5.40) m/uL Hgb 11.3 L (11.4-16.0) gm/dL Hct 35.7 (34.0-46.0) % MCV 86.3 (80.0-100.0) fL MCH 27.2 (25.0-35.0) pg MCHC 31.5 (31.0-37.0) g/dL RDW 16.5 H (11.5-15.5) % Plt Count 105 L (150-450) k/uL MPV 7.8 Neutrophils % 63 % Lymphocytes % 27 % Monocytes % 6 % Eosinophils % 2 % Basophils % 0 % Neutrophils # 2.4 (1.3-7.7) k/uL Lymphocytes # 1.0 (1.0-4.8) k/uL Monocytes # 0.2 (0-1.0) k/uL Eosinophils # 0.1 (0-0.7) k/uL Basophils # 0.0 (0-0.2) k/uL Hypochromasia Slight Anisocytosis Slight PT (9.0-12.0) sec INR (<1.2) APTT (22.0-30.0) sec Sodium 135 L (137-145) mmol/L Potassium 4.3 (3.5-5.1) mmol/L Chloride 96 L (98-107) mmol/L Carbon Dioxide 23 (22-30) mmol/L Anion Gap 16 mmol/L BUN 5 L (7-17) mg/dL Creatinine 0.56 (0.52-1.04) mg/dL Est GFR (CKD-EPI)AfAm >90 (>60 ml/min/1.73 sqM) Est GFR (CKD-EPI)NonAf >90 (>60 ml/min/1.73 sqM) Glucose 76 (74-99) mg/dL Plasma Lactic Acid Antoine (0.7-2.0) mmol/L Calcium 8.6 (8.4-10.2) mg/dL Phosphorus 4.1 (2.5-4.5) mg/dL Magnesium 1.8 (1.6-2.3) mg/dL Total Bilirubin 1.0 (0.2-1.3) mg/dL AST 128 H (14-36) U/L ALT 43 H (4-34) U/L Alkaline Phosphatase 71 (38-126) U/L Troponin I <0.012 (0.000-0.034) ng/mL Total Protein 7.1 (6.3-8.2) g/dL Albumin 4.3 (3.5-5.0) g/dL Lipase 144 (23-300) U/L Urine Color Urine Appearance (Clear) Urine pH (5.0-8.0) Ur Specific Rayle (1.001-1.035) Urine Protein (Negative) Urine Glucose (UA) (Negative) Urine Ketones (Negative) Urine Blood (Negative) Urine Nitrite (Negative) Urine Bilirubin (Negative) Urine Urobilinogen (<2.0) mg/dL Ur Leukocyte Esterase (Negative) Serum Alcohol 344 H* mg/dL 04/26/23 04/26/23 04/26/23 Range/Units 16:21 16:23 17:29 WBC (3.8-10.6) k/uL RBC (3.80-5.40) m/uL Hgb (11.4-16.0) gm/dL Hct (34.0-46.0) % MCV (80.0-100.0) fL MCH (25.0-35.0) pg MCHC (31.0-37.0) g/dL RDW (11.5-15.5) % Plt Count (150-450) k/uL MPV Neutrophils % % Lymphocytes % % Monocytes % % Eosinophils % % Basophils % % Neutrophils # (1.3-7.7) k/uL Lymphocytes # (1.0-4.8) k/uL Monocytes # (0-1.0) k/uL Eosinophils # (0-0.7) k/uL Basophils # (0-0.2) k/uL Hypochromasia Anisocytosis PT 9.7 (9.0-12.0) sec INR 0.9 (<1.2) APTT 20.7 L (22.0-30.0) sec Sodium (137-145) mmol/L Potassium (3.5-5.1) mmol/L Chloride (98-107) mmol/L Carbon Dioxide (22-30) mmol/L Anion Gap mmol/L BUN (7-17) mg/dL Creatinine (0.52-1.04) mg/dL Est GFR (CKD-EPI)AfAm (>60 ml/min/1.73 sqM) Est GFR (CKD-EPI)NonAf (>60 ml/min/1.73 sqM) Glucose (74-99) mg/dL Plasma Lactic Acid Antoine 5.1 H* (0.7-2.0) mmol/L Calcium (8.4-10.2) mg/dL Phosphorus (2.5-4.5) mg/dL Magnesium (1.6-2.3) mg/dL Total Bilirubin (0.2-1.3) mg/dL AST (14-36) U/L ALT (4-34) U/L Alkaline Phosphatase (38-126) U/L Troponin I (0.000-0.034) ng/mL Total Protein (6.3-8.2) g/dL Albumin (3.5-5.0) g/dL Lipase (23-300) U/L Urine Color Light Yellow Urine Appearance Clear (Clear) Urine pH 5.5 (5.0-8.0) Ur Specific Rayle 1.004 (1.001-1.035) Urine Protein Negative (Negative) Urine Glucose (UA) Negative (Negative) Urine Ketones 1+ H (Negative) Urine Blood Negative (Negative) Urine Nitrite Negative (Negative) Urine Bilirubin Negative (Negative) Urine Urobilinogen <2.0 (<2.0) mg/dL Ur Leukocyte Esterase Negative (Negative) Serum Alcohol mg/dL Disposition Clinical Impression: Alcohol intoxication, Lactic acidosis, Abdominal pain, Dehydration, Inflammatory bowel disease Disposition: ADMITTED IP TO THIS HOSP Referrals: Constantine Figueroa DO [Primary Care Provider] - 1-2 days
[2023-04-26 16:34] LABS: Anisocytosis Slight; Basophils % (A) 0 %; Eosinophils # (A) 0.1 k/uL (0-0.7); Eosinophils % (A) 2 %; HCT 35.7 % (34.0-46.0); HGB 11.3 gm/dL (11.4-16.0); Hypochromasia Slight; Lymphocytes % (A) 27 %; MCH 27.2 pg (25.0-35.0); MCHC 31.5 g/dL (31.0-37.0); MCV 86.3 fL (80.0-100.0); Mean Platelet Volume 7.8; Monocytes # (A) 0.2 k/uL (0-1.0); Monocytes % (A) 6 %; Neutrophils # (A) 2.4 k/uL (1.3-7.7); Neutrophils % (A) 63 %; Platelet Count 105 k/uL (150-450); RBC 4.14 m/uL (3.80-5.40); RDW 16.5 % (11.5-15.5); WBC 3.9 k/uL (3.8-10.6)
[2023-04-26 16:48] LABS: ALT 43 U/L (4-34); AST 128 U/L (14-36); African American GFR (CKD) >90 (>60 ml/min/1.73 sqM); Albumin 4.3 g/dL (3.5-5.0); Alkaline Phosphatase 71 U/L (38-126); Anion Gap 16 mmol/L; Blood Urea Nitrogen 5 mg/dL (7-17); Calcium 8.6 mg/dL (8.4-10.2); Carbon Dioxide 23 mmol/L (22-30); Chloride 96 mmol/L (98-107); Glucose 76 mg/dL (74-99); Lipase 144 U/L (23-300); Magnesium 1.8 mg/dL (1.6-2.3); Non-African American GFR(CKD) >90 (>60 ml/min/1.73 sqM); Phosphorus 4.1 mg/dL (2.5-4.5); Potassium 4.3 mmol/L (3.5-5.1); Sodium 135 mmol/L (137-145); Total Protein 7.1 g/dL (6.3-8.2)
[2023-04-26 17:00] LABS: INR 0.9 (<1.2); Prothrombin Time 9.7 sec (9.0-12.0)
[2023-04-26] MEDS ORDERED: SODIUM CHLORIDE 0.9% 1,000 ML IV ONE (17:09)
[2023-04-26 17:11] LABS: Partial Thromboplastin Time 20.7 sec (22.0-30.0)
[2023-04-26 17:14] LABS: Alcohol 344 mg/dL
[2023-04-26] MEDS ORDERED: THIAMINE 100 MG/ML 2 ML VIAL IVP STA (17:14)
[2023-04-26 17:44] LABS: Appearance,Urine Clear (Clear); Bilirubin,Urine Negative (Negative); Blood,Urine Negative (Negative); Color,Urine Light Yellow; Glucose,Urine (UA) Negative (Negative); Ketones,Urine 1+ (Negative); Leukocyte Esterase,Urine Negative (Negative); Nitrite,Urine Negative (Negative); PH, Urine 5.5 (5.0-8.0); Protein,Urine Negative (Negative); Specific Gravity,Urine 1.004 (1.001-1.035); Urobilinogen,Urine <2.0 mg/dL (<2.0)
--- NOTE | 2023-04-26 18:26 | CT ---
EXAMINATION TYPE: CT abdomen pelvis w con CT DLP: 1250.7 mGycm, Automated exposure control for dose reduction was used. DATE OF EXAM: 04/26/2023 6:06 PM COMPARISON: CT abdomen pelvis most recent from 03/20/2023 . CLINICAL INDICATION:Female, 57 years old with history of Mid to lower abdominal pain; Mid to lower ab dominal pain. Recent colonoscopy. Leaking from ostomy bag. TECHNIQUE: Standard CT of the abdomen and pelvis following the administration of 100 cc of Isovue 3 00 IV contrast material. Coronal and sagittal reformats were performed. FINDINGS: LOWER CHEST: Stable right middle lobe 8 mm pulmonary nodule on the right major fissure which may repr esent an intrafissural lymph node. ABDOMEN LIVER: Diffusely hypoattenuating parenchyma. GALLBLADDER AND BILE DUCTS: Unremarkable appearance of the gallbladder. Stable common bile duct dilat ation measuring up to 8 mm. PANCREAS: Unremarkable. SPLEEN: Unremarkable. ADRENAL GLANDS: Unremarkable. KIDNEYS AND URETERS: No evidence of hydronephrosis or renal calculus. The kidneys enhance symmetrical ly. Contrast is demonstrated within both collecting systems on the delayed phase. PELVIS BLADDER: Unremarkable REPRODUCTIVE: Unremarkable. ABDOMEN & PELVIS STOMACH AND BOWEL: Small hiatal hernia. Diverticulum involving the second/third portion of the duoden um. Left lower quadrant diverticular during ostomy demonstrated. No surrounding collection. No focal wall thickening or surrounding inflammatory changes. The appendix is within normal limits. No evidenc e of bowel obstruction. PERITONEUM: No evidence of pneumoperitoneum or free fluid. VASCULATURE: No evidence of aortic aneurysm. MUSCULOSKELETAL: No acute osseous abnormalities. Mild disc degeneration changes are present throughou t the thoracolumbar spine. LYMPH NODES: No gross evidence for lymphadenopathy. SOFT TISSUE/ABDOMINAL WALL: Unremarkable IMPRESSION: 1. No acute abdominal/pelvic process. 2. Postsurgical changes from left lower quadrant ostomy. No surrounding fluid collections. 3. Stable dilatation of the common bile duct measuring up to 8 mm. 4. Hepatic steatosis.
[2023-04-26] MEDS ORDERED: NALOXONE 0.4 MG/ML 1 ML VIAL IV PRN (18:47)
[2023-04-26] MEDS ORDERED: ONDANSETRON 4 MG/2 ML VIAL IVP PRN (18:47)
[2023-04-26] MEDS: SODIUM CHLORIDE 0.9% 1,000 ML IV SCH (19:28)
[2023-04-26] MEDS: FAMOTIDINE 20 MG TAB PO SCH (20:30)
[2023-04-26] MEDS: MORPHINE SULFATE 4 MG/ML SYRINGE IV PRN (21:19)
[2023-04-27] MEDS: SODIUM CHLORIDE 0.9% 1,000 ML IV SCH ×4 (05:46→23:28)
[2023-04-27] MEDS: LORazepam 2 MG/ML INJ IV PRN ×7 (05:46→23:28)
[2023-04-27] MEDS ORDERED: QUEtiapine 50 MG TAB PO PRN (06:34)
[2023-04-27] MEDS ORDERED: traZODone HCL 100 MG TAB PO PRN (06:34)
[2023-04-27] MEDS ORDERED: SODIUM CHLORIDE 0.65% NASAL SPRAY 44 ML BTL NASAL PRN (06:34)
[2023-04-27] MEDS ORDERED: PANTOPRAZOLE SODIUM 40 MG GRANULE PKT PO SCH ×2 (07:30→17:30)
[2023-04-27 09:18] LABS: ALT 46 U/L (8-44); AST 109 U/L (13-35); Albumin 4.4 d/dL (3.8-4.9); Albumin/Globulin Ratio 1.91 Ratio (1.60-3.17); Alkaline Phosphatase 65 U/L (41-126); BUN/Creat Ratio <5.83 Ratio (12.00-20.00); Blood Urea Nitrogen <3.5 mg/dL (9.0-27.0); Calcium 8.8 mg/dL (8.7-10.3); Carbon Dioxide 15.4 mmol/L (21.6-31.8); Chloride 99 mmol/L (96-109); Globulin 2.3 d/dL (1.6-3.3); Glucose 68 mg/dL (70-110); Magnesium 1.6 mg/dL (1.5-2.4); Potassium 4.1 mmol/L (3.5-5.5); Sodium 140 mmol/L (135-145); Total Bilirubin 1.1 mg/dL (0.3-1.2); Total Protein 6.7 d/dL (6.2-8.2)
[2023-04-27] MEDS: RIVAROXABAN 20 MG TAB PO SCH (09:58)
[2023-04-27] MEDS: MULTIVITAMINS, THERA 1 EACH TAB PO SCH (09:58)
[2023-04-27] MEDS: MAGNESIUM OXIDE 400 MG TAB PO SCH (09:58)
[2023-04-27] MEDS: VENLAFAXINE HCL ER 75 MG CAP PO SCH (09:58)
[2023-04-27] MEDS: THIAMINE 100 MG TAB PO SCH ×2 (09:58→20:22)
[2023-04-27] MEDS: FAMOTIDINE 20 MG TAB PO SCH ×2 (09:58→20:22)
[2023-04-27] MEDS: FUROSEMIDE 40 MG TAB PO SCH (09:59)
[2023-04-27] MEDS: FOLIC ACID 1 MG TAB PO SCH (09:59)
[2023-04-27 11:31] LABS: Basophils # (A) 0.02 X 10*3/uL (0.00-0.10); Basophils % (A) 0.4 %; Eosinophils # (A) 0 X 10*3/uL (0.04-0.35); Eosinophils % (A) 0 %; HCT 32.3 % (37.2-46.3); HGB 9.9 d/dL (12.0-15.0); Lymphocytes # (A) 0.72 X 10*3/uL (0.90-5.00); Lymphocytes % (A) 14.5 %; MCH 26.5 pg (27.0-32.0); MCHC 30.7 d/dL (32.0-37.0); MCV 86.4 FL (80.0-97.0); Mean Platelet Volume 10.2 FL (9.5-12.2); Monocytes # (A) 0.39 X 10*3/uL (0.20-1.00); Monocytes % (A) 7.9 %; NRBC Per 100 WBC 0 X 10*3/uL (0.00-0.01); Neutrophils # (A) 3.79 X 10*3/uL (1.80-7.70); Neutrophils % (A) 76.6 %; Platelet Count 90 X 10*3/uL (140-440); RBC 3.74 X 10*6/uL (4.10-5.20); RDW 17.6 % (11.5-14.5); WBC 4.95 X 10*3/uL (4.50-10.00)
--- NOTE | 2023-04-27 12:17 | US ---
EXAMINATION TYPE: US abdomen complete DATE OF EXAM: 04/27/2023 COMPARISON: CT 04/26/23 CLINICAL INDICATION: Female, 57 years old with history of Abdominal pain, elevated LFTs; abd pain, LF Ts TECHNIQUE: Multiple sonographic images of the abdomen are obtained. FINDINGS: EXAM MEASUREMENTS: Liver Length: 19.6 cm Gallbladder Wall: 0.2 cm CBD: 0.8 cm Spleen: 9.5 cm Right Kidney: 11.3x4.0x6.2 cm Left Kidney: 10.0x5.0x4.2 cm DEVELOPMENT LEAD NOTES: Pancreas: mostly obscured by bowel except for pancreas head Liver: enlarged, increased echogenicity and attenuation. Difficult to assess due to attenuation, bow el gas, body habitus and patient positioning Gallbladder: wnl, small echogenic area measuring up to 0.9cm near neck of gallbladder Evidence for sonographic Osman's sign: No CBD: wnl Spleen: wnl Right Kidney: wnl Left Kidney: wnl Upper IVC: wnl Abd Aorta: wnl technically difficult exam due to attenuation, bowel gas, body habitus and patient positioning The liver is enlarged with increased attenuation without focal lesion. The intrahepatic portion of th e IVC and proximal abdominal aorta are within normal limits. Single gallstone identified. No wall thi ckening or pericholecystic fluid. Per lockstitch hemmer negative sonographic Osman sign. Common bile duct is mildly dilated and stable from prior exams. The pancreas is mostly scattered by overlying bowel g as. The visualized abdomen is unremarkable. Kidneys are symmetric and free of hydronephrosis. No fernando al lesions are seen. Spleen is unremarkable. IMPRESSION: Limited examination due to patient's body habitus and overlying bowel gas. 1. No acute process. 2. Cholelithiasis without evidence for acute cholecystitis. 3. Hepatomegaly with fatty infiltration.
[2023-04-27] MEDS ORDERED: METOPROLOL TARTRATE 5 MG/5 ML VIAL IVP ONE (14:10)
--- NOTE | 2023-04-27 15:26 | P.HPIM ---
History of Present Illness H&P Date: 04/27/23 History of present illness; patient is a 57-year-old lady with past medical hist ory significant for hyperlipidemia, hypertension presented to the ER because of his abdominal pain. Patient states she has been having abdominal pain for the last 3 days, he denies any complaint of nausea and vomiting. Patient had surgery for ruptured bowel earlier this year and ended up having a colostomy. Denies any fever or chills. Denies any shortness of breath or chest pain. Initial lab work done in the ER showed WBC 3.9, hemoglobin 11.3, platelet count 105, sodium 135, potassium 4.3, BUN 5, creatinine 0.56, AST 128, ALT 43, serum alcohol level 344 CT abdominal and pelvis done showed no acute abdominal/pelvic process, postsurgical changes from left lower quadrant ostomy. Hepatic steatosis Patient admitted to medicine service Patient when transferred to the floor, she went into [facility] with RVR, REVIEW OF SYSTEMS: CONSTITUTIONAL: No fever, no malaise, no fatigue. HEENT: No recent visual problems or hearing problems. Denied any sore throat. CARDIOVASCULAR: No chest pain, orthopnea, PND, no palpitations, no syncope. PULMONARY: No shortness of breath, no cough, no hemoptysis. GASTROINTESTINAL: As mentioned in HPI NEUROLOGICAL: No headaches, no weakness, no numbness. HEMATOLOGICAL: Denies any bleeding or petechiae. GENITOURINARY: Denies any burning micturition, frequency, or urgency. MUSCULOSKELETAL/RHEUMATOLOGICAL: Denies any joint pain, swelling, or any muscle pain. ENDOCRINE: Denies any polyuria or polydipsia. The rest of the 14-point review of systems is negative. PHYSICAL EXAMINATION: GENERAL: The patient is alert and oriented x3, not in any acute distress. Well developed, well nourished. HEENT: Pupils are round and equally reacting to light. EOMI. No scleral icterus. No conjunctival pallor. Normocephalic, atraumatic. No pharyngeal erythema. No thyromegaly. CARDIOVASCULAR: S1 and S2 present. IRRegular in rate and rhythm PULMONARY: Chest is clear to auscultation, no wheezing or crackles. ABDOMEN: Soft, nontender, nondistended, normoactive bowel sounds. No palpable organomegaly. Ostomy seen MUSCULOSKELETAL: No joint swelling or deformity. EXTREMITIES: No cyanosis, clubbing, or pedal edema. NEUROLOGICAL: Gross neurological examination did not reveal any focal deficits. SKIN: No rashes. Assessment and plan Alcohol intoxication A. fib with RVR Alcohol hepatitis Alcohol abuse Lactic acidosis Hypertension Hyperlipidemia Monitor vital signs Monitor CBC Monitor CMP Continue telemetry monitoring Avoid hepatotoxic agents Ordered ultrasound abdominal Continue antiemetics Continue CIWA protocol Continue thiamine and folic acid Consult GI Consult cardiology Labs and medication were reviewed.. Continue same treatment. Continue with symptomatic treatment. Resume home medication. Monitor labs and vitals. DVT and GI prophylaxis. Further recommendations as per clinical course of the patient Dictation was produced using [employer] dictation software. please excuse any grammatical, word or spelling errors. Past Medical History Past Medical History: Deep Vein Thrombosis (DVT), Hypertension Additional Past Medical History / Comment(s): concussion History of Any Multi-Drug Resistant Organisms: None Reported Past Surgical History: No Surgical Hx Reported Additional Past Surgical History / Comment(s): jaw surgery, colostomy Past Anesthesia/Blood Transfusion Reactions: No Reported Reaction Past Psychological History: Anxiety, Depression Smoking Status: Former smoker Past Alcohol Use History: Abuse, Daily, Heavy Additional Past Alcohol Use History / Comment(s): states she drinks 6-8 beers daily, no other alcoholic beverages Past Drug Use History: None Reported - Past Family History Father Additional Family Medical History / Comment(s): Spleen CA Mother Family Medical History: COPD Additional Family Medical History / Comment(s): empysema Medications and Allergies Home Medications Medication Instructions Recorded Confirmed Type Rivaroxaban [Xarelto] 20 mg PO DAILY 30 Days tab 01/19/22 04/26/23 Rx Folic Acid 1 mg PO DAILY tab 03/19/22 04/26/23 Rx Multivitamins, Thera [Multivitamin 1 tab PO DAILY 04/19/22 04/26/23 History (formulary)] Atorvastatin [Lipitor] 20 mg PO HS 11/23/22 04/26/23 History Furosemide [Lasix] 40 mg PO DAILY 11/23/22 04/26/23 History Liraglutide [Saxenda] 3 mg SQ DAILY 11/23/22 04/26/23 History Sodium Chloride 0.65% Nasal [Deep 2 spr EA NOSTRIL QID PRN 11/23/22 04/26/23 History Sea (Saline)] Thiamine [Vitamin B-1] 100 mg PO BID 11/23/22 04/26/23 History QUEtiapine [SEROquel] 50 mg PO HS PRN 30 Days #30 tab 11/29/22 04/26/23 Rx Magnesium Oxide [Magox 400] 400 mg PO DAILY 01/28/23 04/26/23 History Pantoprazole Sodium [Protonix] 20 mg PO DAILY 01/28/23 04/26/23 History Acetaminophen Tab [Tylenol] 650 mg PO Q6HR PRN tab 03/23/23 04/26/23 Rx Venlafaxine HCl [Effexor XR] 225 mg PO DAILY 04/26/23 04/26/23 History traZODone HCL [Desyrel] 200 mg PO HS PRN 04/26/23 04/26/23 History Allergies Allergy/AdvReac Type Severity Reaction Status Date / Time bacitracin Allergy Rash/Hives Verified 03/20/23 17:21 cephalexin [From Keflex] Allergy Itching Verified 03/20/23 17:21 Physical Exam Vitals: Vital Signs Temp Pulse Pulse Resp BP BP Pulse Ox 04/27/23 09:08 95 04/27/23 04:15 98.3 F 95 18 135/82 95 04/27/23 02:39 97 18 152/97 95 04/27/23 01:20 95 18 128/83 95 04/26/23 23:14 89 18 117/79 93 L 04/26/23 21:12 91 18 133/84 93 L 04/26/23 18:59 99.1 F 92 18 121/75 94 L 04/26/23 18:11 86 17 120/83 95 04/26/23 17:04 93 20 112/57 95 04/26/23 16:20 98.0 F 84 18 115/71 97 04/26/23 14:54 98.1 F 91 18 132/86 94 L FiO2 04/27/23 09:08 21 04/27/23 04:15 04/27/23 02:39 04/27/23 01:20 04/26/23 23:14 04/26/23 21:12 04/26/23 18:59 04/26/23 18:11 04/26/23 17:04 04/26/23 16:20 04/26/23 14:54 Intake and Output 04/26/23 04/27/23 04/27/23 22:59 06:59 14:59 Other: Voiding Method Toilet # Voids 1 Weight 99.79 kg Results CBC & Chem 7: 04/27/23 05:31 04/27/23 05:31 Labs: Abnormal Lab Results - Last 24 Hours (Table) 04/26/23 04/26/23 04/26/23 Range/Units 16:14 16:14 16:21 Hgb 11.3 L (11.4-16.0) gm/dL RDW 16.5 H (11.5-15.5) % Plt Count 105 L (150-450) k/uL APTT (22.0-30.0) sec Sodium 135 L (137-145) mmol/L Chloride 96 L (98-107) mmol/L Carbon Dioxide (21.6-31.8) mmol/L Anion Gap (4.00-12.00) mmol/L BUN 5 L (7-17) mg/dL BUN/Creatinine Ratio (12.00-20.00) Ratio Glucose (70-110) mg/dL Plasma Lactic Acid Antoine 5.1 H* (0.7-2.0) mmol/L AST 128 H (14-36) U/L ALT 43 H (4-34) U/L Urine Ketones (Negative) Serum Alcohol 344 H* mg/dL 04/26/23 04/26/23 04/26/23 Range/Units 16:23 17:29 22:30 Hgb (11.4-16.0) gm/dL RDW (11.5-15.5) % Plt Count (150-450) k/uL APTT 20.7 L (22.0-30.0) sec Sodium (137-145) mmol/L Chloride (98-107) mmol/L Carbon Dioxide (21.6-31.8) mmol/L Anion Gap (4.00-12.00) mmol/L BUN (7-17) mg/dL BUN/Creatinine Ratio (12.00-20.00) Ratio Glucose (70-110) mg/dL Plasma Lactic Acid Antoine 5.3 H* (0.7-2.0) mmol/L AST (14-36) U/L ALT (4-34) U/L Urine Ketones 1+ H (Negative) Serum Alcohol mg/dL 04/27/23 04/27/23 04/27/23 Range/Units 01:40 05:31 05:31 Hgb (11.4-16.0) gm/dL RDW (11.5-15.5) % Plt Count (150-450) k/uL APTT (22.0-30.0) sec Sodium (137-145) mmol/L Chloride (98-107) mmol/L Carbon Dioxide 15.4 L (21.6-31.8) mmol/L Anion Gap 25.60 H (4.00-12.00) mmol/L BUN <3.5 L (7-17) mg/dL BUN/Creatinine Ratio <5.83 L (12.00-20.00) Ratio Glucose 68 L (70-110) mg/dL Plasma Lactic Acid Antoine 3.9 H* 6.0 H* (0.7-2.0) mmol/L AST 109 H (14-36) U/L ALT 46 H (4-34) U/L Urine Ketones (Negative) Serum Alcohol mg/dL 04/27/23 Range/Units 09:19 Hgb (11.4-16.0) gm/dL RDW (11.5-15.5) % Plt Count (150-450) k/uL APTT (22.0-30.0) sec Sodium (137-145) mmol/L Chloride (98-107) mmol/L Carbon Dioxide (21.6-31.8) mmol/L Anion Gap (4.00-12.00) mmol/L BUN (7-17) mg/dL BUN/Creatinine Ratio (12.00-20.00) Ratio Glucose (70-110) mg/dL Plasma Lactic Acid Antoine 2.8 H* (0.7-2.0) mmol/L AST (14-36) U/L ALT (4-34) U/L Urine Ketones (Negative) Serum Alcohol mg/dL Thrombosis Risk Factor Assmnt - Choose All That Apply Any of the Below Risk Factors Present?: Yes Each Factor Represents 1 point: Age 41-60 years, Obesity (BMI >25) Thrombosis Risk Factor Assessment Total Risk Factor Score: 2 Thrombosis Risk Factor Assessment Level: Low Risk
[2023-04-27] MEDS: PANTOPRAZOLE 40 MG TABLET PO SCH (17:54)
[2023-04-27] MEDS: METOPROLOL TARTRATE 12.5 MG TAB PO SCH (20:22)
[2023-04-27] MEDS ORDERED: ATORVASTATIN 20 MG TAB PO SCH (21:00)
[2023-04-28] MEDS: LORazepam 2 MG/ML INJ IV PRN ×11 (02:01→22:05)
[2023-04-28] MEDS: PANTOPRAZOLE 40 MG TABLET PO SCH ×2 (06:30→17:02)
[2023-04-28] MEDS: FUROSEMIDE 40 MG TAB PO SCH (08:43)
[2023-04-28] MEDS: FAMOTIDINE 20 MG TAB PO SCH ×2 (08:43→21:42)
[2023-04-28] MEDS: MAGNESIUM OXIDE 400 MG TAB PO SCH (08:43)
[2023-04-28] MEDS: MULTIVITAMINS, THERA 1 EACH TAB PO SCH (08:44)
[2023-04-28] MEDS: METOPROLOL TARTRATE 12.5 MG TAB PO SCH ×2 (08:44→21:42)
[2023-04-28] MEDS: VENLAFAXINE HCL ER 75 MG CAP PO SCH (08:44)
[2023-04-28] MEDS: THIAMINE 100 MG TAB PO SCH ×2 (08:44→21:42)
[2023-04-28] MEDS: FOLIC ACID 1 MG TAB PO SCH (08:44)
[2023-04-28] MEDS: RIVAROXABAN 20 MG TAB PO SCH (08:44)
[2023-04-28 09:08] LABS: Anisocytosis Slight; Basophils % (A) 0 %; Eosinophils # (A) 0.1 k/uL (0-0.7); Eosinophils % (A) 3 %; HCT 30.2 % (34.0-46.0); Hypochromasia Slight; Lymphocytes # (A) 0.3 k/uL (1.0-4.8); Lymphocytes % (A) 10 %; MCH 27.9 pg (25.0-35.0); MCHC 32.6 g/dL (31.0-37.0); MCV 85.5 fL (80.0-100.0); Mean Platelet Volume 10.7; Monocytes # (A) 0.2 k/uL (0-1.0); Monocytes % (A) 7 %; Neutrophils # (A) 2.8 k/uL (1.3-7.7); Neutrophils % (A) 77 %; RBC 3.53 m/uL (3.80-5.40); RDW 16.8 % (11.5-15.5); WBC 3.6 k/uL (3.8-10.6)
[2023-04-28 09:33] LABS: HGB 9.8 gm/dL (11.4-16.0)
--- NOTE | 2023-04-28 10:24 | P.CONS ---
History of Present Illness - Reason for Consult Consult date: 04/28/23 Elevated LFTs, abdominal pain Requesting physician: Damian Reynoso - Chief Complaint Abdominal pain - History of Present Illness This a 57-year-old female who presented to the emergency department with complaints of abdominal pain. Reports she's had abdominal pain for last 3 days duration. She denies any nausea or vomiting, no fevers or chills. Apparently patient had a recent resection with colostomy done in the spring. She has a history of heavy alcohol abuse and has been drinking for several years however states she has done rehab in the past but started drinking again. States that she was diagnosed with liver disease in her 30s. She drinks up to two fifths per day. She was noted to have elevated LFTs as well as blood alcohol level CCCXLIV on admission. Gastroenterology was consulted for elevated LFTs and abdominal pain. Patient currently states abdominal pain is improved, she is quite shaky she is sitting up in bed and eating a full breakfast. She denies any nausea or vomiting, diarrhea, fevers or chills. Imaging Abdominal ultrasound reports no acute process, cholelithiasis without evidence for acute cholecystitis, hepatomegaly with fatty infiltration CT abdomen and pelvis with contrast reports no acute abdominal/pelvic process. Postsurgical changes from left lower quadrant ostomy. No surrounding fluid collections. Stable dilation of the common bile duct measuring up to 8 mm. Hepatic steatosis Labs WBC 4.9 hemoglobin 9.9 hematocrit 32 platelet count 90,000 INR 0.9 sodium 140 potassium 4.1 BUN less than 3.5 creatinine 0.6 total bilirubin 1.1 AST 109 and 246 alkaline phosphatase 65 lipase 144 serum alcohol 344 Review of Systems REVIEW OF SYSTEMS: CARDIOPULMONARY: No chest pain or shortness of breath. Gastrointestinal: No abdominal pain now improved. No nausea or vomiting. No hematemesis, coffee-ground emesis. No rectal bleeding, or melena. GENITOURINARY: No dysuria or hematuria. MUSCULOSKELETAL: Reports normal range of motion. SKIN: No rashes. No jaundice. ENDOCRINE: No chills, fevers. No excessive weight gain or loss. No polydipsia or polyuria. PSYCHIATRIC: Unremarkable. NEUROLOGY: No change in mental status. Denies dizziness, headache. ENT: Vision unremarkable. CONSTITUTIONAL: No recent weight loss. No fever, chills, night sweats. Past Medical History Past Medical History: Deep Vein Thrombosis (DVT), Hypertension Additional Past Medical History / Comment(s): concussion History of Any Multi-Drug Resistant Organisms: None Reported Past Surgical History: No Surgical Hx Reported Additional Past Surgical History / Comment(s): jaw surgery, colostomy Past Anesthesia/Blood Transfusion Reactions: No Reported Reaction Past Psychological History: Anxiety, Depression Smoking Status: Former smoker Past Alcohol Use History: Abuse, Daily, Heavy Additional Past Alcohol Use History / Comment(s): states she drinks 6-8 beers daily, no other alcoholic beverages Past Drug Use History: None Reported - Past Family History Father Additional Family Medical History / Comment(s): Spleen CA Mother Family Medical History: COPD Additional Family Medical History / Comment(s): empysema Medications and Allergies Home Medications Medication Instructions Recorded Confirmed Type Rivaroxaban [Xarelto] 20 mg PO DAILY 30 Days tab 01/19/22 04/26/23 Rx Folic Acid 1 mg PO DAILY tab 03/19/22 04/26/23 Rx Multivitamins, Thera [Multivitamin 1 tab PO DAILY 04/19/22 04/26/23 History (formulary)] Atorvastatin [Lipitor] 20 mg PO HS 11/23/22 04/26/23 History Furosemide [Lasix] 40 mg PO DAILY 11/23/22 04/26/23 History Liraglutide [Saxenda] 3 mg SQ DAILY 11/23/22 04/26/23 History Sodium Chloride 0.65% Nasal [Deep 2 spr EA NOSTRIL QID PRN 11/23/22 04/26/23 History Sea (Saline)] Thiamine [Vitamin B-1] 100 mg PO BID 11/23/22 04/26/23 History QUEtiapine [SEROquel] 50 mg PO HS PRN 30 Days #30 tab 11/29/22 04/26/23 Rx Magnesium Oxide [Magox 400] 400 mg PO DAILY 01/28/23 04/26/23 History Pantoprazole Sodium [Protonix] 20 mg PO DAILY 01/28/23 04/26/23 History Acetaminophen Tab [Tylenol] 650 mg PO Q6HR PRN tab 03/23/23 04/26/23 Rx Venlafaxine HCl [Effexor XR] 225 mg PO DAILY 04/26/23 04/26/23 History traZODone HCL [Desyrel] 200 mg PO HS PRN 04/26/23 04/26/23 History Allergies Allergy/AdvReac Type Severity Reaction Status Date / Time bacitracin Allergy Rash/Hives Verified 03/20/23 17:21 cephalexin [From Keflex] Allergy Itching Verified 03/20/23 17:21 Physical Exam Vitals: Vital Signs Temp Pulse Resp BP Pulse Ox FiO2 04/28/23 04:00 98.4 F 87 18 141/82 95 04/28/23 01:51 93 16 04/27/23 23:54 93 16 138/80 96 04/27/23 20:00 98.3 F 94 18 167/99 96 04/27/23 17:52 98.9 F 96 16 140/92 96 04/27/23 14:00 99.9 F H 155 H 20 138/90 94 L 04/27/23 09:08 95 21 04/27/23 07:50 98.3 F 92 18 122/78 94 L Intake and Output 04/27/23 04/28/23 04/28/23 22:59 06:59 14:59 Intake Total 0 Output Total 1400 Balance 0 -1400 Intake: Oral 0 Output: Urine 1400 Other: Voiding Method Toilet Toilet General appearance: The patient is alert, oriented, appears in no acute distress. HET: Head is normocephalic and atraumatic. Conjunctiva pink. Sclera anicteric. Neck: Supple without lymphadenopathy. Trachea midline. Heart: S1 S2. Regular rate and rhythm. Lungs: Clear to auscultation. Abdomen: Soft, left upper quadrant tenderness with palpation, nondistended with bowel sounds. No guarding or rigidity. Skin: No rashes. No jaundice. Extremities: Normal skin color and turgor. No pedal edema. Neurological: No focal deficits. Alert and oriented x3. Results CBC & Chem 7: 04/28/23 07:56 04/27/23 05:31 Labs: Abnormal Lab Results - Last 24 Hours (Table) 04/27/23 04/27/23 04/27/23 Range/Units 05:31 05:31 09:19 RBC 3.74 L (4.10-5.20) X 10*6/uL Hgb 9.9 L (12.0-15.0) d/dL Hct 32.3 L (37.2-46.3) % MCH 26.5 L (27.0-32.0) pg MCHC 30.7 L (32.0-37.0) d/dL RDW 17.6 H (11.5-14.5) % Plt Count 90 L (140-440) X 10*3/uL Lymphocytes # 0.72 L (0.90-5.00) X 10*3/uL Eosinophils # 0 L (0.04-0.35) X 10*3/uL Carbon Dioxide 15.4 L (21.6-31.8) mmol/L Anion Gap 25.60 H (4.00-12.00) mmol/L BUN <3.5 L (9.0-27.0) mg/dL BUN/Creatinine Ratio <5.83 L (12.00-20.00) Ratio Glucose 68 L (70-110) mg/dL Plasma Lactic Acid Antoine 2.8 H* (0.7-2.0) mmol/L AST 109 H (13-35) U/L ALT 46 H (8-44) U/L Assessment and Plan (1) Liver disease Narrative/Plan: 57-year-old female with long-standing history of alcoholism who presented to the emergency department with complaints of abdominal pain. She was known to have elevated LFTs, labs are consistent with alcoholic liver disease. Patient drinks up to 1-2/5 a day, states she was diagnosed with liver disease in her 30s. She came in with an alcohol level of 344. Mild elevation in LFTs. CONSISTENT again with underlying alcoholic liver disease. No further workup of indicated. Discussed with patient importance of alcohol abstinence and that she likely has cirrhosis of the liver from many years of alcohol abuse. Patient verbalized understanding and wanting to go into rehab. Current Visit: Yes Status: Acute Code(s): K76.9 - LIVER DISEASE, UNSPECIFIED SNOMED Code(s): 027380362 (2) Alcohol intoxication Current Visit: Yes Status: Acute Code(s): F10.929 - ALCOHOL USE, UNSPECIFIED WITH INTOXICATION, UNSPECIFIED SNOMED Code(s): 51650444 (3) Alcohol use disorder Current Visit: No Status: Acute Priority: Medium Code(s): NHL9049 - SNOMED Code(s): 8936290 Plan: 1. Continue symptomatic and supportive care 2. Monitor and treat for alcohol withdrawal symptoms 3. Alcohol abstinence, discussed with patient importance of alcohol abstinence and underlying alcoholic cirrhosis of the liver 4. Recommend consult to case management for possible inpatient rehab placement 5. No further workup indicated from gastroenterology Thank you for this consultation, we will continue to follow. Dr. Leola Potts I agree with the dictator's note, documented as a scribe by Fatoumata Jurado.
[2023-04-28 11:47] LABS: Platelet Count 64 k/uL (150-450)
--- NOTE | 2023-04-28 11:49 | CA ---
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 Beard [facility] Procedure CPT: Indications: Slurred speech, CVA Cardiac Hx: Technical Quality: Fair Contrast 1: Total Dose (mL): Contrast 2: Total Dose (mL): MEASUREMENTS (Male / Female) Normal Values 2D ECHO LV Diastolic Diameter PLAX 4.9 cm 4.2 - 5.9 / 3.9 - 5.3 cm LV Systolic Diameter PLAX 3.8 cm IVS Diastolic Thickness 0.9 cm 0.6 - 1.0 / 0.6 - 0.9 cm LVPW Diastolic Thickness 0.9 cm 0.6 - 1.0 / 0.6 - 0.9 cm LV Relative Wall Thickness 0.4 M-MODE Aortic Root Diameter MM 3.2 cm LA Systolic Diameter MM 3.5 cm LA Ao Ratio MM 1.1 AV Cusp Separation MM 2.2 cm DOPPLER AV Peak Velocity 177.7 cm/s AV Peak Gradient 12.6 mmHg AV Mean Velocity 136.0 cm/s AV Mean Gradient 8.1 mmHg AV Velocity Time Integral 28.2 cm LVOT Peak Velocity 137.3 cm/s LVOT Peak Gradient 7.5 mmHg LVOT Velocity Time Integral 23.7 cm MR Peak Velocity 493.2 cm/s MR Peak Gradient 97.3 mmHg Mitral E Point Velocity 59.0 cm/s Mitral A Point Velocity 66.1 cm/s Mitral E to A Ratio 0.9 MV Deceleration Time 246.7 ms LV E' Lateral Velocity 17.2 cm/s Mitral E to LV E' Lateral Ratio 3.4 LV E' Septal Velocity 11.9 cm/s Mitral E to LV E' Septal Ratio 4.9 TR Peak Velocity 257.8 cm/s TR Peak Gradient 26.6 mmHg Right Atrial Pressure 8.0 mmHg Pulmonary Artery Systolic Pressu 34.6 mmHg Right Ventricular Systolic Press 34.6 mmHg FINDINGS Left Ventricle Normal Left ventricular size, wall thickness, systolic function with no obvious regional wall motion abnormalities. Left ventricular ejection fraction is estimated at 55-60%. Right Ventricle Normal right ventricular size. Mild pulmonary hypertension. Right Atrium Mild right atrial dilatation. Left Atrium Severe left atrial dilatation. Mitral Valve Structurally normal mitral valve. Moderate mitral regurgitation. Aortic Valve Aortic valve not well visualized. No aortic regurgitation. Tricuspid Valve Structurally normal tricuspid valve. Trace tricuspid regurgitation. Pulmonic Valve Pulmonic valve not well visualized. Pericardium No pericardial effusion. Echo free space anterior to the right ventricle likely represents a fat pad. Aorta Normal size aortic root and proximal ascending aorta. CONCLUSIONS Normal LV systolic function Moderate mitral regurgitation Mild pulmonary hypertension Previewed by: Dr. Ollie Potts MD (Electronically Signed) Final Date: 28 April 2023 11:48
[2023-04-28 11:55] LABS: ALT 35 U/L (4-34); AST 76 U/L (14-36); African American GFR (CKD) >90 (>60 ml/min/1.73 sqM); Albumin 3.7 g/dL (3.5-5.0); Alkaline Phosphatase 48 U/L (38-126); Anion Gap 10 mmol/L; Blood Urea Nitrogen <2 mg/dL (7-17); Calcium 8.6 mg/dL (8.4-10.2); Carbon Dioxide 20 mmol/L (22-30); Chloride 99 mmol/L (98-107); Glucose 125 mg/dL (74-99); Non-African American GFR(CKD) >90 (>60 ml/min/1.73 sqM); Sodium 129 mmol/L (137-145); Total Bilirubin 1.3 mg/dL (0.2-1.3); Total Protein 6.3 g/dL (6.3-8.2)
[2023-04-28 12:08] LABS: Potassium 4.5 mmol/L (3.5-5.1)
[2023-04-28] MEDS: SODIUM CHLORIDE 0.9% 1,000 ML IV SCH ×2 (12:28→16:59)
[2023-04-28] MEDS ORDERED: THIAMINE 100 MG/ML 2 ML VIAL IM STA (13:39)
[2023-04-28] MEDS ORDERED: chlordiazePOXIDE 25 MG CAP PO PRN (13:39)
--- NOTE | 2023-04-28 13:43 | P.PN ---
Subjective Progress Note Date: 04/28/23 patient is a 57-year-old lady with past medical history significant for hyperlipidemia, hypertension presented to the ER because of his abdominal pain. Patient states she has been having abdominal pain for the last 3 days, he denies any complaint of nausea and vomiting. Patient had surgery for ruptured bowel earlier this year and ended up having a colostomy. Denies any fever or chills. Denies any shortness of breath or chest pain. Initial lab work done in the ER showed WBC 3.9, hemoglobin 11.3, platelet count 105, sodium 135, potassium 4.3, BUN 5, creatinine 0.56, AST 128, ALT 43, serum alcohol level 344 CT abdominal and pelvis done showed no acute abdominal/pelvic process, postsurgical changes from left lower quadrant ostomy. Hepatic steatosis Patient admitted to medicine service Patient when transferred to the floor, she went into A. fib with RVR, 04/28. Patient seen and examined. Patient is currently hallucinating, very irritable. But alert and able to answer orientation questions REVIEW OF SYSTEMS: CONSTITUTIONAL: No fever, no malaise,. CARDIOVASCULAR: No chest pain, no palpitations, no syncope. PULMONARY: No shortness of breath, no cough, GASTROINTESTINAL: No diarrhea, no nausea, no vomiting, no abdominal pain. NEUROLOGICAL: No headaches, no weakness, PHYSICAL EXAMINATION: GENERAL: The patient is alert , not in any acute distress. Well developed, well nourished. HEENT: Pupils are round and equally reacting to light. EOMI. No scleral icterus. No conjunctival pallor. Normocephalic, atraumatic. No pharyngeal erythema. No thyromegaly. CARDIOVASCULAR: S1 and S2 present. No murmurs, rubs, or gallops. PULMONARY: Chest is clear to auscultation, no wheezing or crackles. ABDOMEN: Soft, nontender, nondistended, normoactive bowel sounds. No palpable organomegaly. MUSCULOSKELETAL: No joint swelling or deformity. EXTREMITIES: No cyanosis, clubbing, or pedal edema. NEUROLOGICAL: Gross neurological examination did not reveal any focal deficits. SKIN: No rashes. Assessment and plan Alcohol intoxication A. fib with RVR Alcohol hepatitis Alcohol abuse Lactic acidosis Hypertension Hyperlipidemia Monitor vital signs Monitor CBC Monitor CMP Continue CIWA protocol Delirium precautions Seizure precautions Continue thiamine and folic acid Continue Lopressor and Xarelto Cardiology following Psych following Labs and medication were reviewed.. Continue same treatment. Continue with symptomatic treatment. Resume home medication. Monitor labs and vitals. DVT and GI prophylaxis. Further recommendations as per clinical course of the patient Dictation was produced using [employer] dictation software. please excuse any grammatical, word or spelling errors. Objective - Vital Signs Vital signs: Vital Signs Temp 97.8 F 04/28/23 08:41 Pulse 89 04/28/23 11:26 Resp 18 04/28/23 11:26 BP 138/84 04/28/23 11:26 Pulse Ox 96 04/28/23 11:26 FiO2 21 04/27/23 09:08 Intake & Output 04/27/23 04/28/23 04/28/23 18:59 06:59 18:59 Intake Total 0 500 Output Total 1400 2450 Balance 0 -1400 -1950 Intake: Oral 0 500 Output: Urine 1400 1450 Stool 1000 Other: Voiding Method Toilet Toilet # Voids 2 - Labs CBC & Chem 7: 04/28/23 07:56 04/28/23 07:56 Labs: Abnormal Lab Results - Last 24 Hours (Table) 04/28/23 04/28/23 Range/Units 07:56 07:56 WBC 3.6 L (3.8-10.6) k/uL RBC 3.53 L (3.80-5.40) m/uL Hgb 9.8 L D (11.4-16.0) gm/dL Hct 30.2 L (34.0-46.0) % RDW 16.8 H (11.5-15.5) % Plt Count 64 L (150-450) k/uL Lymphocytes # 0.3 L (1.0-4.8) k/uL Sodium 129 L (137-145) mmol/L Carbon Dioxide 20 L (22-30) mmol/L BUN <2 L (7-17) mg/dL Creatinine 0.47 L (0.52-1.04) mg/dL Glucose 125 H (74-99) mg/dL AST 76 H (14-36) U/L ALT 35 H (4-34) U/L
--- NOTE | 2023-04-28 15:09 | P.CRDCN ---
History of Present Illness Consult date: 04/28/23 Consult reason: atrial fibrillation (With RVR) History of present illness: History of present illness: This is a 57 year old female with past medical history of hypertension, chronic daily use of alcohol, former smoker, DVT on Xarelto. Patient has had multiple hospitalizations for alcohol intoxication. We have been asked to evaluate the patient for A. fib with RVR. Patient presented to the emergency center on 04/26 with abdominal pain with history of ruptured bowel status post colostomy. Patient was found to be in A. fib with RVR and was provided Lopressor 5 mg IV push, continued on Lopressor 12.5 mg twice daily. Patient is currently in sinus rhythm. Patient denies having any chest pain or shortness of breath. Patient states her last alcohol intake was on Wednesday and she usually has 6-7 beers per day. Patient has a safety supervisor at the bedside. EKG atrial fibrillation with ventricular rate of 156 bpm, #2 sinus rhythm at 94 bpm Abdominal ultrasound no acute process. Cholelithiasis. Hepatomegaly with fatty infiltration. CAT scan of the abdomen and pelvis with contrast no acute abdominal process. WBC 4.9, hemoglobin 9.9, platelet count 90. Sodium 140, potassium 4.1, creatinine 0.6. Lactic acid 6 followed by 2.8 and 1.2. Troponin negative 1. AST 109, ALT 46. Glucose 68. Echocardiogram reveals normal LV systolic function, moderate mitral regurgitation, mild pulmonary hypertension. Home cardiac medications: Atorvastatin 20 mg at bedtime, Lasix 40 mg daily, magnesium oxide 400 mg daily, Xarelto 20,000,000 g daily Review Of Systems: At the time of my evaluation: Constitutional: No fever, no chills. + weakness, +fatigue. EENT: No headache. No dizziness. Lungs: No shortness of breath, cough, no sputum production. No wheezing. Cardiovascular: No chest pain, no lower extremity edema. No palpitations. No paroxysmal nocturnal dyspnea. No orthopnea. No lightheadedness or dizziness. No syncopal episodes. Abdominal: + abdominal pain. No nausea, vomiting. Musculoskeletal: No myalgias. + muscle weakness, no frequent falls. Neurologic: No aphasia. No facial droop. No change in mentation. Physical examination: Gen: This is a 57-year-old female. She is resting bed appears to be comfortable. VS: reviewed 135/86, heart rate 97, afebrile, pulse ox 96% on room air HEENT: Head is atraumatic, normocephalic. Pupils equal, round. Sclerae is anicteric. NECK: Supple. No JVD. . LUNGS: Clear to auscultation. No wheezes or rhonchi. No intercostal retractions. HEART: Regular rate and rhythm. No murmur. ABDOMEN: Soft No tenderness. EXTREMITIES: No pedal edema. No calf tenderness. NEUROLOGICAL: Patient is awake, alert and oriented x3. Assessment: A. fib with RVR, paroxysmal Alcohol intoxication Abdominal pain Elevated liver function tests Plan: Continue patient's home cardiac medications including Xarelto Continue Lopressor Further recommendations to follow based upon clinical course Thank you kindly for this consultation. Nurse practitioner note has been reviewed, I agree with documented findings and plan of care. Patient was seen and examined. Past Medical History Past Medical History: Deep Vein Thrombosis (DVT), Hypertension Additional Past Medical History / Comment(s): concussion History of Any Multi-Drug Resistant Organisms: None Reported Past Surgical History: No Surgical Hx Reported Additional Past Surgical History / Comment(s): jaw surgery, colostomy Past Anesthesia/Blood Transfusion Reactions: No Reported Reaction Past Psychological History: Anxiety, Depression Smoking Status: Former smoker Past Alcohol Use History: Abuse, Daily, Heavy Additional Past Alcohol Use History / Comment(s): states she drinks 6-8 beers daily, no other alcoholic beverages Past Drug Use History: None Reported - Past Family History Father Additional Family Medical History / Comment(s): Spleen CA Mother Family Medical History: COPD Additional Family Medical History / Comment(s): empysema Medications and Allergies Home Medications Medication Instructions Recorded Confirmed Type Rivaroxaban [Xarelto] 20 mg PO DAILY 30 Days tab 01/19/22 04/26/23 Rx Folic Acid 1 mg PO DAILY tab 03/19/22 04/26/23 Rx Multivitamins, Thera [Multivitamin 1 tab PO DAILY 04/19/22 04/26/23 History (formulary)] Atorvastatin [Lipitor] 20 mg PO HS 11/23/22 04/26/23 History Furosemide [Lasix] 40 mg PO DAILY 11/23/22 04/26/23 History Liraglutide [Saxenda] 3 mg SQ DAILY 11/23/22 04/26/23 History Sodium Chloride 0.65% Nasal [Deep 2 spr EA NOSTRIL QID PRN 11/23/22 04/26/23 History Sea (Saline)] Thiamine [Vitamin B-1] 100 mg PO BID 11/23/22 04/26/23 History QUEtiapine [SEROquel] 50 mg PO HS PRN 30 Days #30 tab 11/29/22 04/26/23 Rx Magnesium Oxide [Magox 400] 400 mg PO DAILY 01/28/23 04/26/23 History Pantoprazole Sodium [Protonix] 20 mg PO DAILY 01/28/23 04/26/23 History Acetaminophen Tab [Tylenol] 650 mg PO Q6HR PRN tab 03/23/23 04/26/23 Rx Venlafaxine HCl [Effexor XR] 225 mg PO DAILY 04/26/23 04/26/23 History traZODone HCL [Desyrel] 200 mg PO HS PRN 04/26/23 04/26/23 History Allergies Allergy/AdvReac Type Severity Reaction Status Date / Time bacitracin Allergy Rash/Hives Verified 03/20/23 17:21 cephalexin [From Keflex] Allergy Itching Verified 03/20/23 17:21 Physical Exam Vitals: Vital Signs Temp Pulse Resp BP Pulse Ox 04/28/23 08:41 97.8 F 97 18 135/86 96 04/28/23 04:00 98.4 F 87 18 141/82 95 04/28/23 01:51 93 16 04/27/23 23:54 93 16 138/80 96 04/27/23 20:00 98.3 F 94 18 167/99 96 04/27/23 17:52 98.9 F 96 16 140/92 96 04/27/23 14:00 99.9 F H 155 H 20 138/90 94 L Intake and Output 04/27/23 04/28/23 04/28/23 22:59 06:59 14:59 Intake Total 0 100 Output Total 1400 Balance 0 -1400 100 Intake: Oral 0 100 Output: Urine 1400 Other: Voiding Method Toilet Toilet Toilet Results 04/28/23 07:56 04/28/23 07:56 Cardiac Enzymes 04/27/23 04/27/23 Range/Units 05:31 12:56 AST 109 H (13-35) U/L Troponin I <0.012 (0.000-0.034) ng/mL CBC 04/27/23 Range/Units 05:31 WBC 4.95 (4.50-10.00) X 10*3/uL RBC 3.74 L (4.10-5.20) X 10*6/uL Hgb 9.9 L (12.0-15.0) d/dL Hct 32.3 L (37.2-46.3) % Plt Count 90 L (140-440) X 10*3/uL Comprehensive Metabolic Panel 04/27/23 Range/Units 05:31 Sodium 140 (135-145) mmol/L Potassium 4.1 (3.5-5.5) mmol/L Chloride 99 (96-109) mmol/L Carbon Dioxide 15.4 L (21.6-31.8) mmol/L BUN <3.5 L (9.0-27.0) mg/dL Creatinine 0.6 (0.6-1.5) mg/dL Glucose 68 L (70-110) mg/dL Calcium 8.8 (8.7-10.3) mg/dL AST 109 H (13-35) U/L ALT 46 H (8-44) U/L Alkaline Phosphatase 65 (41-126) U/L Total Protein 6.7 (6.2-8.2) d/dL Albumin 4.4 (3.8-4.9) d/dL Current Medications Generic Name Dose Route Start Last Admin Trade Name Freq PRN Reason Stop Dose Admin Acetaminophen 650 mg 04/26/23 18:47 Acetaminophen Tab 325 Mg Tab PO Q6HR PRN Mild Pain or Fever > 100.5 Famotidine 20 mg 04/26/23 21:00 04/28/23 08:43 Famotidine 20 Mg Tab PO 20 mg BID SOLEDAD Administration Folic Acid 1 mg 04/27/23 09:00 04/28/23 08:44 Folic Acid 1 Mg Tab PO 1 mg DAILY SOLEDAD Administration Furosemide 40 mg 04/27/23 09:00 04/28/23 08:43 Furosemide 40 Mg Tab PO 40 mg DAILY SOLEDAD Administration Sodium Chloride 1,000 mls @ 130 mls/hr 04/26/23 19:00 04/27/23 23:28 Saline 0.9% IV 130 mls/hr .Q7H42M SOLEDAD Administration Lorazepam 1 mg 04/27/23 05:34 04/28/23 04:39 Lorazepam 2 Mg/Ml Inj IV 1 mg Q2HR PRN Administration CIWA 8 or 9 Lorazepam 1 mg 04/27/23 05:34 04/28/23 08:44 Lorazepam 2 Mg/Ml Inj IV 1 mg Q1HR PRN Administration CIWA 10 to 15 Magnesium Oxide 400 mg 04/27/23 09:00 04/28/23 08:43 Magnesium Oxide 400 Mg Tab PO 400 mg DAILY SOLEDAD Administration Metoprolol Tartrate 12.5 mg 04/27/23 21:00 04/28/23 08:44 Metoprolol Tartrate 12.5 Mg Tab PO 12.5 mg BID SOLEDAD Administration Morphine Sulfate 4 mg 04/26/23 18:47 04/26/23 21:19 Morphine Sulfate 4 Mg/Ml Syringe IV 4 mg Q4HR PRN Administration Severe Pain (Scale 7 to 10) Multivitamins 1 each 04/27/23 09:00 04/28/23 08:44 Multivitamins, Thera 1 Each Tab PO 1 each DAILY SOLEDAD Administration Naloxone HCl 0.2 mg 04/26/23 18:47 Naloxone 0.4 Mg/Ml 1 Ml Vial IV Q2M PRN Opioid Reversal Ondansetron HCl 4 mg 04/26/23 18:47 Ondansetron 4 Mg/2 Ml Vial IVP Q8HR PRN Nausea And Vomiting Pantoprazole Sodium 40 mg 04/27/23 17:30 04/28/23 06:30 Pantoprazole 40 Mg Tablet PO 40 mg AC-BID SOLEDAD Administration Quetiapine Fumarate 50 mg 04/27/23 06:34 Quetiapine 50 Mg Tab PO HS PRN Agitation or Acute Psychosis Rivaroxaban 20 mg 04/27/23 09:00 04/28/23 08:44 Rivaroxaban 20 Mg Tab PO 20 mg DAILY SOLEDAD Administration Protocol Sodium Chloride 2 spray 04/27/23 06:34 Sodium Chloride 0.65% Nasal [place] 44 Ml Btl NASAL QID PRN Allergy Symptoms Thiamine HCl 100 mg 04/27/23 09:00 04/28/23 08:44 Thiamine 100 Mg Tab PO 100 mg BID SOLEDAD Administration Trazodone HCl 200 mg 04/27/23 06:34 04/27/23 23:28 Trazodone Hcl 100 Mg Tab PO 200 mg HS PRN Administration Insomnia Venlafaxine HCl 225 mg 04/27/23 09:00 04/28/23 08:44 Venlafaxine Hcl Er 75 Mg Cap PO 225 mg DAILY SOLEDAD Administration Intake and Output 04/27/23 04/28/23 04/28/23 22:59 06:59 14:59 Intake Total 0 100 Output Total 1400 Balance 0 -1400 100 Intake: Oral 0 100 Output: Urine 1400 Other: Voiding Method Toilet Toilet Toilet 04/27/23 05:31 04/27/23 05:31
[2023-04-28] MEDS ORDERED: OLANZapine 10 MG VIAL IM STA (15:29)
[2023-04-28] MEDS ORDERED: HALOPERIDOL LACTATE 5 MG/ML 1 ML VIAL IVP PRN (16:37)
[2023-04-28] MEDS: diazePAM 5 MG TAB PO SCH ×2 (17:02→19:36)
--- NOTE | 2023-04-28 17:13 | P.CN ---
Psychiatric Consult - . Consult date: 04/28/23 Consult:: 04/28/23 13:53 IDENTIFYING DATA: This patient is a 57 year old female with history of severe alcohol use disorder who was admitted with blood alcohol 344 and is currently in alcohol withdrawal. REASON FOR REFERRAL: Psychiatry was consulted for alcohol withdrawal. HISTORY OF PRESENT ILLNESS: The patient presented to the hospital on 04/26/2023 complaining of alcohol withdrawal and with BAL of 344. She was admitted to medicine for workup and also management of her elevated transaminases, Afib, lactic acidosis, hypertension and alcoholic liver disease. She was started on CIWA for alcohol withdrawal. On 04/27/23 she received a total of 7 mg of IV Ativan. So far today, she has received 11 mg of IV Ativan, 25 mg of po Librium, and 5 mg of IM Zyprexa. On my assessment, she is delirious, speaking nonsensically, thrashing in her bed, repeatedly playing with her sheets, attempting to pull out her IV. She has a 1:1 sitter at bedside to maintain safety. She is alert and oriented to person, date of . She is not oriented to place or time since she is at [place] [id number] and thinks she last drank alcohol about a week ago. She admits to feeling depressed, but denies suicidal ideation. She reports drinking abour 12 pack of beer a day with vodka on top of that. Per chart, she drinks about two fifths of vodka daily. PAST PSYCHIATRIC HISTORY: Patient has a a history of admission to [facility] in January 2022 and most of the information below is taken from that H&P since patient is presently a poor historian. Patient is currently prescribed Effexor XR 225 mg daily in the morning, Trazodone 200 mg QHS, Seroquel 50 mg QHS. She was previously on Vivitrol. Previous psychiatric hospitalizations on [facility] in January 2022. Not known who her outpatient psychiatric follow-up is at this time. Patient denies any history of suicide attempts in the past. PAST MEDICAL HISTORY: Past Medical History: Deep Vein Thrombosis (DVT), Hypertension Additional Past Medical History / Comment(s): concussion History of Any Multi-Drug Resistant Organisms: None Reported Past Surgical History: No Surgical Hx Reported Additional Past Surgical History / Comment(s): jaw surgery, colostomy Past Anesthesia/Blood Transfusion Reactions: No Reported Reaction Past Psychological History: Anxiety, Depression Smoking Status: Former smoker Past Alcohol Use History: Abuse, Daily, Heavy Past Drug Use History: None Reported ALLERGIES: as per EMR. CHEMICAL DEPENDENCY HISTORY: as per HPI. FAMILY PSYCHIATRIC/SUBSTANCE USE HISTORY: Alcoholism in family SOCIAL HISTORY: , no children, lives alone, unemployed. MENTAL STATUS EXAM: General Appearance: Patient appears to be older than stated age, disheveled, wearing diaper. Behavior: Patient is agitated, thrashing in bed and attempting to pull her out her IV. Speech: Patient's speech is fluent and non-pressured. Mood/Affect: Patient reports their mood is "depressed", affect is constricted Suicidality/Homicidality: Patient denies having any suicidal or homicidal ideation intent or plan. Perceptions: Likely having hallucinations and is pulling on her IV. Though content/process: Thought process/content is nonsensical. Memory and concentration: AOX3, grossly intact for the purposes of this session. Can spell "WORLD" backwards Judgment and insight: very poor IMPRESSIONS: Delirium, multifactorial - [alcohol withdrawal, lactic acidosis, elevated transaminases, anemia, hyponatremia] Alcohol use disorder, severe Alcohol withdrawal PLAN: -At this time patient DOES NOT meet criteria for inpatient psychiatric admission. -Patient DOES NOT have decision making capacity at this time and is unable to reason through and communicate/appreciate the risks, benefits and alternatives to treatment. -Delirium precautions recommended with patient including - avoiding use of narcotics and CARD CHECKER sedatives, limit anticholinergic medications when possible, frequent re-orientation, minimize use of restraints, open window shades during the day and close them at night -Would recommend the following medication changes/additions: Since patient's transaminases have been trending down, I think she can handle 1- 2 days of Valium to help control her alcohol withdrawal, which I think would be more effective than Librium or Ativan. For the rest of today, discontinue Librium and start Valium 10 mg po/IM/IV Q4H x 2 doses. For 04/29, reduce Valium 10 mg po/IM/IV to Q6H x 4 doses. Once alcohol withdrawal is better controlled after a few doses of Valium, primary team can switch back to Librium if they choose. If primary team prefers to continue with Valium: for 8/18 reduce Valium 10 mg po/IM/IV to Q8H x 3 doses and for 05/01 Valium 10 mg po Q12H, and for 05/02 Valium 10 mg po once. HOLD for SBP less than 100, DBP less than 60, HR less than 60 or concern for respiratory depression. Continue CIWA protocol with PRN Ativan for break-through alcohol withdrawal. Continue to monitor vital signs. Start Haldol 2 mg IV Q6H PRN for agitation. -Continue 1:1 sitter for safety -lime kiln worker to provide patient with outpatient mental health/psychiatry resources for appropriate follow up upon discharge -lime kiln worker to provide patient substance use treatment resources including AA/NA meetings in the community. -lime kiln worker to provide patient with access line number to call for inpatient substance rehab -Communicated plan to patient's nurse -Will continue to follow along -Please contact with any questions. 04/28/23 16:40 04/28/23 17:12
[2023-04-28] MEDS ORDERED: chlordiazePOXIDE 25 MG CAP PO SCH (18:00)
[2023-04-28] MEDS: ACETAMINOPHEN TAB 325 MG TAB PO PRN (23:16)
[2023-04-29] MEDS: LORazepam 2 MG/ML INJ IV PRN ×3 (00:51→06:40)
[2023-04-29] MEDS: diazePAM 5 MG TAB PO SCH ×4 (04:24→21:36)
[2023-04-29] MEDS: SODIUM CHLORIDE 0.9% 1,000 ML IV SCH ×3 (05:00→15:39)
[2023-04-29] MEDS: PANTOPRAZOLE 40 MG TABLET PO SCH ×2 (05:46→16:34)
[2023-04-29] MEDS: THIAMINE 100 MG TAB PO SCH ×3 (08:09→21:41)
[2023-04-29] MEDS: RIVAROXABAN 20 MG TAB PO SCH (08:18)
[2023-04-29] MEDS: FUROSEMIDE 40 MG TAB PO SCH (08:18)
[2023-04-29] MEDS: METOPROLOL TARTRATE 12.5 MG TAB PO SCH (08:18)
[2023-04-29] MEDS: MULTIVITAMINS, THERA 1 EACH TAB PO SCH (08:18)
[2023-04-29] MEDS: MAGNESIUM OXIDE 400 MG TAB PO SCH (08:18)
[2023-04-29] MEDS: FOLIC ACID 1 MG TAB PO SCH (08:18)
[2023-04-29] MEDS: VENLAFAXINE HCL ER 75 MG CAP PO SCH (08:18)
[2023-04-29] MEDS: FAMOTIDINE 20 MG TAB PO SCH ×2 (08:18→21:41)
[2023-04-29] MEDS ORDERED: METOPROLOL TARTRATE 12.5 MG TAB PO STA (11:09)
--- NOTE | 2023-04-29 14:03 | P.PN ---
Subjective Progress Note Date: 04/29/23 History of present illness: This is a 57 year old female with past medical history of hypertension, chronic daily use of alcohol, former smoker, DVT on Xarelto. Patient has had multiple hospitalizations for alcohol intoxication. We have been asked to evaluate the patient for A. fib with RVR. Patient presented to the emergency center on 04/26 with abdominal pain with history of ruptured bowel status post colostomy. Patient was found to be in A. fib with RVR and was provided Lopressor 5 mg IV push, continued on Lopressor 12.5 mg twice daily. Patient is currently in sinus rhythm. Patient denies having any chest pain or shortness of breath. Patient states her last alcohol intake was on Wednesday and she usually has 6-7 beers per day. Patient has a food safety field specialist at the bedside. EKG atrial fibrillation with ventricular rate of 156 bpm, #2 sinus rhythm at 94 bpm Abdominal ultrasound no acute process. Cholelithiasis. Hepatomegaly with fatty infiltration. CAT scan of the abdomen and pelvis with contrast no acute abdominal process. WBC 4.9, hemoglobin 9.9, platelet count 90. Sodium 140, potassium 4.1, creatinine 0.6. Lactic acid 6 followed by 2.8 and 1.2. Troponin negative 1. AST 109, ALT 46. Glucose 68. Echocardiogram reveals normal LV systolic function, moderate mitral regurgitati on, mild pulmonary hypertension. Home cardiac medications: Atorvastatin 20 mg at bedtime, Lasix 40 mg daily, magnesium oxide 400 mg daily, Xarelto 20,000,000 g daily 04/29 Patient is on CIWA protocol and required Haldol. This morning, she is not responsive to verbal stimuli. BB increased but unfortunately, patient is not taking oral medications. She went back into afib w RVR and cardizem gtt was resumed. Sodium 129, potassium 4.5. Hemoglobin is 9.8 and platelet count 64. Physical examination: Gen: This is a 57-year-old female. She is resting bed appears to be comfortable. VS: reviewed 135/86, heart rate 97, afebrile, pulse ox 96% on room air HEENT: Head is atraumatic, normocephalic. Pupils equal, round. Sclerae is anicteric. NECK: Supple. No JVD. . LUNGS: Clear to auscultation. No wheezes or rhonchi. No intercostal retractions. HEART: Regular rate and rhythm. No murmur. ABDOMEN: Soft No tenderness. EXTREMITIES: No pedal edema. No calf tenderness. NEUROLOGICAL: Patient is Unresponsive to verbal stimuli. Assessment: A. fib with RVR, paroxysmal Alcohol intoxication Abdominal pain Elevated liver function tests Plan: Continue patient's home cardiac medications including Xarelto Continue Lopressor resume Cardizem drip until patient is able to take oral medications or converts to sinus rhythm, rate controlled atrial fibrillation Further recommendations to follow based upon clinical course Nurse practitioner note has been reviewed, I agree with documented findings and plan of care. Patient was seen and examined. Objective - Vital Signs Vital signs: Vital Signs Temp 98.6 F 04/29/23 12:00 Pulse 113 H 04/29/23 12:00 Resp 18 04/29/23 12:00 BP 148/78 04/29/23 12:00 Pulse Ox 92 L 04/29/23 12:00 FiO2 21 04/27/23 09:08 Intake & Output 04/28/23 04/29/23 04/29/23 18:59 06:59 18:59 Intake Total 500 Output Total 3250 600 300 Balance -2750 -600 -300 Intake: Oral 500 Output: Urine 2250 500 300 Stool 1000 100 Other: Voiding Method Toilet Toilet External Catheter # Voids 1 1 - Labs CBC & Chem 7: 04/28/23 07:56 04/28/23 07:56
--- NOTE | 2023-04-29 14:19 | P.PN ---
Subjective Progress Note Date: 04/29/23 patient is a 57-year-old lady with past medical history significant for hyperlipidemia, hypertension presented to the ER because of his abdominal pain. Patient states she has been having abdominal pain for the last 3 days, he denies any complaint of nausea and vomiting. Patient had surgery for ruptured bowel earlier this year and ended up having a colostomy. Denies any fever or chills. Denies any shortness of breath or chest pain. Initial lab work done in the ER showed WBC 3.9, hemoglobin 11.3, platelet count 105, sodium 135, potassium 4.3, BUN 5, creatinine 0.56, AST 128, ALT 43, serum alcohol level 344 CT abdominal and pelvis done showed no acute abdominal/pelvic process, postsurgical changes from left lower quadrant ostomy. Hepatic steatosis Patient admitted to medicine service Patient when transferred to the floor, she went into A. fib with RVR, 04/28. Patient seen and examined. Patient is currently hallucinating, very irritable. But alert and able to answer orientation questions 04/29. Patient seen and examined. Currently patient is lethargic, less irrit able and hallucinating compared to yesterday REVIEW OF SYSTEMS: Cannot be obtained as patient is currently lethargic PHYSICAL EXAMINATION: GENERAL: The patient is alert , not in any acute distress. Well developed, well nourished. HEENT: Pupils are round and equally reacting to light. EOMI. No scleral icterus. No conjunctival pallor. Normocephalic, atraumatic. No pharyngeal erythema. No thyromegaly. CARDIOVASCULAR: S1 and S2 present. No murmurs, rubs, or gallops. PULMONARY: Chest is clear to auscultation, no wheezing or crackles. ABDOMEN: Soft, nontender, nondistended, normoactive bowel sounds. No palpable organomegaly. MUSCULOSKELETAL: No joint swelling or deformity. EXTREMITIES: No cyanosis, clubbing, or pedal edema. NEUROLOGICAL: Gross neurological examination did not reveal any focal deficits. SKIN: No rashes. Assessment and plan Alcohol intoxication A. fib with RVR Alcohol hepatitis Alcohol abuse Lactic acidosis Hypertension Hyperlipidemia Monitor vital signs Monitor CBC Monitor CMP Continue CIWA protocol Delirium precautions Seizure precautions Continue thiamine and folic acid Continue Lopressor and Xarelto Cardiology following Psych following Labs and medication were reviewed.. Continue same treatment. Continue with symptomatic treatment. Resume home medication. Monitor labs and vitals. DVT and GI prophylaxis. Further recommendations as per clinical course of the patient Dictation was produced using [employer] dictation software. please excuse any g rammatical, word or spelling errors. Objective - Vital Signs Vital signs: Vital Signs Temp 98.6 F 04/29/23 12:00 Pulse 113 H 04/29/23 12:00 Resp 18 04/29/23 12:00 BP 148/78 04/29/23 12:00 Pulse Ox 92 L 04/29/23 12:00 FiO2 21 04/27/23 09:08 Intake & Output 04/28/23 04/29/23 04/29/23 18:59 06:59 18:59 Intake Total 500 Output Total 3250 600 300 Balance -2750 -600 -300 Intake: Oral 500 Output: Urine 2250 500 300 Stool 1000 100 Other: Voiding Method Toilet Toilet External Catheter # Voids 1 1 - Labs CBC & Chem 7: 04/28/23 07:56 04/28/23 07:56
--- NOTE | 2023-04-29 15:21 | P.PN ---
Subjective Progress Note Date: 04/29/23 Principal diagnosis: Elevated LFTs This a 57-year-old female who presented to the emergency department with complaints of abdominal pain. Reports she's had abdominal pain for last 3 days duration. She denies any nausea or vomiting, no fevers or chills. Apparently patient had a recent resection with colostomy done in the spring. She has a history of heavy alcohol abuse and has been drinking for several years however states she has done rehab in the past but started drinking again. States that she was diagnosed with liver disease in her 30s. She drinks up to two fifths per day. She was noted to have elevated LFTs as well as blood alcohol level CCCXLIV on admission. Gastroenterology was consulted for elevated LFTs and abdominal pain. Patient currently states abdominal pain is improved, she is quite shaky she is sitting up in bed and eating a full breakfast. She denies any nausea or vomiting, diarrhea, fevers or chills. Imaging Abdominal ultrasound reports no acute process, cholelithiasis without evidence for acute cholecystitis, hepatomegaly with fatty infiltration CT abdomen and pelvis with contrast reports no acute abdominal/pelvic process. Postsurgical changes from left lower quadrant ostomy. No surrounding fluid collections. Stable dilation of the common bile duct measuring up to 8 mm. Hepatic steatosis Labs WBC 4.9 hemoglobin 9.9 hematocrit 32 platelet count 90,000 INR 0.9 sodium 140 potassium 4.1 BUN less than 3.5 creatinine 0.6 total bilirubin 1.1 AST 109 and 246 alkaline phosphatase 65 lipase 144 serum alcohol 344 04/29/2023 Patient seen and examined as a follow-up. Patient is on CIWA protocol, patient is not very responsive this morning. Reported hallucinating. Patient went into atrial fibrillation with RVR, cardiology following. WBC 3.6 hemoglobin 9.8 platelet count 64,000 total bilirubin 1.3 AST 76 ALT 35 alkaline phosphatase 48 Objective - Vital Signs Vital signs: Vital Signs Temp 98.6 F 04/29/23 12:00 Pulse 113 H 04/29/23 12:00 Resp 18 04/29/23 12:00 BP 148/78 04/29/23 12:00 Pulse Ox 92 L 04/29/23 12:00 FiO2 21 04/27/23 09:08 Intake & Output 04/28/23 04/29/23 04/29/23 18:59 06:59 18:59 Intake Total 500 Output Total 3250 600 300 Balance -2750 -600 -300 Intake: Oral 500 Output: Urine 2250 500 300 Stool 1000 100 Other: Voiding Method Toilet Toilet External Catheter # Voids 1 1 - Exam General appearance: The patient is with little response. Hallucinating. HET: Head is normocephalic and atraumatic. Conjunctiva pink. Sclera anicteric. Neck: Supple without lymphadenopathy. Abdomen: Soft, nontender, nondistended with bowel sounds. No guarding or rigidity. Extremities: Normal skin color and turgor. No pedal edema Skin: No rashes, no jaundice Neurological: Hallucinating. Lethargic. - Labs CBC & Chem 7: 04/28/23 07:56 04/28/23 07:56 Assessment and Plan (1) Liver disease Narrative/Plan: 57-year-old female with long-standing history of alcoholism who presented to the emergency department with complaints of abdominal pain. She was known to have elevated LFTs, labs are consistent with alcoholic liver disease. Patient drinks up to 1-2/5 a day, states she was diagnosed with liver disease in her 30s. She came in with an alcohol level of 344. Mild elevation in LFTs. CONSISTENT again with underlying alcoholic liver disease. No further workup of indicated. Discussed with patient importance of alcohol abstinence and that she likely has cirrhosis of the liver from many years of alcohol abuse. Patient verbalized understanding and wanting to go into rehab. Patient going through withdrawal symptoms, on CIWA protocol. Continue close monitoring. Ammonia level ordered Current Visit: Yes Status: Acute Code(s): K76.9 - LIVER DISEASE, UNSPECIFIED SNOMED Code(s): 362962789 (2) Alcohol intoxication Current Visit: Yes Status: Acute Code(s): F10.929 - ALCOHOL USE, UNSPECIFIED WITH INTOXICATION, UNSPECIFIED SNOMED Code(s): 76901394 (3) Alcohol use disorder Current Visit: No Status: Acute Priority: Medium Code(s): OKJ9425 - SNOMED Code(s): 0970317 (4) Alcohol withdrawal Current Visit: No Status: Acute Code(s): F10.939 - ALCOHOL USE, UNSPECIFIED WITH WITHDRAWAL, UNSPECIFIED SNOMED Code(s): 791639581 Plan: 1. Continue symptomatic and supportive care 2. Monitor and treat for alcohol withdrawal symptoms/CIWA protocol 3. Alcohol abstinence, discussed with patient importance of alcohol abstinence and underlying alcoholic cirrhosis of the liver 4. Recommend consult to case management for possible inpatient rehab placement 5. Ammonia level ordered 6. Continue medical management per primary medical team Thank you for this consultation, we will continue to follow. Dr. Leola Potts I agree with the dictator's note, documented as a scribe by Fatoumata Jurado.
[2023-04-29] MEDS: ACETAMINOPHEN TAB 325 MG TAB PO PRN (21:41)
[2023-04-29] MEDS: METOPROLOL TARTRATE 25 MG TAB PO SCH (21:41)
[2023-04-30] MEDS: SODIUM CHLORIDE 0.9% 1,000 ML IV SCH ×3 (01:13→15:59)
[2023-04-30] MEDS ORDERED: diazePAM 5 MG TAB PO SCH (04:30)
[2023-04-30] MEDS: ACETAMINOPHEN TAB 325 MG TAB PO PRN (04:40)
[2023-04-30] MEDS: PANTOPRAZOLE 40 MG TABLET PO SCH ×2 (06:24→17:26)
[2023-04-30] MEDS: MAGNESIUM OXIDE 400 MG TAB PO SCH (08:05)
[2023-04-30] MEDS: FAMOTIDINE 20 MG TAB PO SCH ×2 (08:05→21:44)
[2023-04-30] MEDS: MULTIVITAMINS, THERA 1 EACH TAB PO SCH (08:05)
[2023-04-30] MEDS: THIAMINE 100 MG TAB PO SCH ×3 (08:05→21:45)
[2023-04-30] MEDS: VENLAFAXINE HCL ER 75 MG CAP PO SCH (08:05)
[2023-04-30] MEDS: FUROSEMIDE 40 MG TAB PO SCH (08:06)
[2023-04-30] MEDS: RIVAROXABAN 20 MG TAB PO SCH (08:06)
[2023-04-30] MEDS: FOLIC ACID 1 MG TAB PO SCH (08:06)
[2023-04-30] MEDS: METOPROLOL TARTRATE 25 MG TAB PO SCH (08:06)
[2023-04-30] MEDS ORDERED: LACTULOSE 20 GM/30 ML CUP PO ONE (08:51)
[2023-04-30] MEDS ORDERED: METOPROLOL TARTRATE 25 MG TAB PO STA (09:44)
--- NOTE | 2023-04-30 09:55 | P.PN ---
Subjective Progress Note Date: 04/30/23 Principal diagnosis: Elevated LFTs This a 57-year-old female who presented to the emergency department with complaints of abdominal pain. Reports she's had abdominal pain for last 3 days duration. She denies any nausea or vomiting, no fevers or chills. Apparently patient had a recent resection with colostomy done in the spring. She has a history of heavy alcohol abuse and has been drinking for several years however states she has done rehab in the past but started drinking again. States that she was diagnosed with liver disease in her 30s. She drinks up to two fifths per day. She was noted to have elevated LFTs as well as blood alcohol level CCCXLIV on admission. Gastroenterology was consulted for elevated LFTs and abdominal pain. Patient currently states abdominal pain is improved, she is quite shaky she is sitting up in bed and eating a full breakfast. She denies any nausea or vomiting, diarrhea, fevers or chills. Imaging Abdominal ultrasound reports no acute process, cholelithiasis without evidence for acute cholecystitis, hepatomegaly with fatty infiltration CT abdomen and pelvis with contrast reports no acute abdominal/pelvic process. Postsurgical changes from left lower quadrant ostomy. No surrounding fluid collections. Stable dilation of the common bile duct measuring up to 8 mm. Hepatic steatosis Labs WBC 4.9 hemoglobin 9.9 hematocrit 32 platelet count 90,000 INR 0.9 sodium 140 potassium 4.1 BUN less than 3.5 creatinine 0.6 total bilirubin 1.1 AST 109 and 246 alkaline phosphatase 65 lipase 144 serum alcohol 344 04/29/2023 Patient seen and examined as a follow-up. Patient is on CIWA protocol, patient is not very responsive this morning. Reported hallucinating. Patient went into atrial fibrillation with RVR, cardiology following. WBC 3.6 hemoglobin 9.8 platelet count 64,000 total bilirubin 1.3 AST 76 ALT 35 alkaline phosphatase 48 04/30/2023 Patient seen and examined as a follow-up. She has a sitter at the bedside. Pat david is sleeping, she is difficult to arouse but eventually wakes up with stimulation. She has not had any sedatives since yesterday. She is alert and oriented [address] She denies any abdominal pain, she's had no nausea or vomiting. She had a max temp of 101.0 Fahrenheit early this morning. Awaiting morning labs including ammonia. Objective - Vital Signs Vital signs: Vital Signs Temp 100.0 F H 04/30/23 06:30 Pulse 96 04/30/23 04:00 Resp 20 04/30/23 04:00 BP 152/106 04/30/23 04:00 Pulse Ox 94 L 04/30/23 04:00 FiO2 21 04/27/23 09:08 Intake & Output 04/29/23 04/30/23 04/30/23 18:59 06:59 18:59 Output Total 390 1100 600 Balance -390 -1100 -600 Output: Urine 300 1000 600 Straight 1000 Stool 90 100 Other: Voiding Method External Catheter External Catheter - Exam General appearance: The patient is lethargic, difficult to arouse but did wake up with stimulation. HET: Head is normocephalic and atraumatic. Conjunctiva pink. Sclera anicteric. Neck: Supple without lymphadenopathy. Abdomen: Soft, nontender, nondistended with bowel sounds. No guarding or rigidity. Extremities: Normal skin color and turgor. Lower extremity edema. Skin: No rashes, no jaundice Neurological: Lethargic. Arousable. Alert and oriented 2. - Labs CBC & Chem 7: 04/28/23 07:56 04/28/23 07:56 Assessment and Plan (1) Liver disease Narrative/Plan: 57-year-old female with long-standing history of alcoholism who presented to the emergency department with complaints of abdominal pain. She was known to have elevated LFTs, labs are consistent with alcoholic liver disease. Patient drinks up to 1-2/5 a day, states she was diagnosed with liver disease in her 30s. She came in with an alcohol level of 344. Mild elevation in LFTs. CONSISTENT again with underlying alcoholic liver disease. No further workup of indicated. Discussed with patient importance of alcohol abstinence and that she likely has cirrhosis of the liver from many years of alcohol abuse. Patient verbalized understanding and wanting to go into rehab. Patient going through withdrawal symptoms, on CIWA protocol. Continue close monitoring. Ammonia level ordered Current Visit: Yes Status: Acute Code(s): K76.9 - LIVER DISEASE, UNSPECIFIED SNOMED Code(s): 476898895 (2) Alcohol intoxication Current Visit: Yes Status: Acute Code(s): F10.929 - ALCOHOL USE, UNSPECIFIED WITH INTOXICATION, UNSPECIFIED SNOMED Code(s): 77132302 (3) Alcohol use disorder Current Visit: No Status: Acute Priority: Medium Code(s): TDY9141 - SNOMED Code(s): 3146853 (4) Alcohol withdrawal Current Visit: No Status: Acute Code(s): F10.939 - ALCOHOL USE, UNSPECIFIED WITH WITHDRAWAL, UNSPECIFIED SNOMED Code(s): 767879147 (5) Hepatic encephalopathy Narrative/Plan: Patient appears to be encephalopathic, has not had any sedatives yet still is very lethargic and difficult to arouse. Will order dose of lactulose and await ammonia level. Likely to continue lactulose 3 times a day. Current Visit: Yes Status: Acute Code(s): K76.82 - HEPATIC ENCEPHALOPATHY SNOMED Code(s): 67896960 Plan: 1. Continue symptomatic and supportive care 2. Monitor and treat for alcohol withdrawal symptoms/CIWA protocol 3. Alcohol abstinence, discussed with patient importance of alcohol abstinence and underlying alcoholic cirrhosis of the liver 4. Recommend consult to case management for possible inpatient rehab placement 5. Ammonia level ordered 6. Lactulose 1 ordered, if ammonia level elevated continue lactulose 30 g 3 times a day 7. Continue medical management per primary medical team 8. Recommend outpatient follow-up with gastroenterology Thank you for allowing us to participate in the care of the patient, the GI service will sign off, gastroenterology will not be available at the hospital this weekend and through next week. If further evaluation by gastroenterology is required the patient will need transfer as per the primary team's discretion. Dr. Leola Potts I agree with the dictator's note, documented as a scribe by Fatoumata Jurado.
[2023-04-30 10:01] LABS: Lactic Acid, Venous 0.9 mmol/L (0.7-2.0)
[2023-04-30 10:23] LABS: African American GFR (CKD) >90 (>60 ml/min/1.73 sqM); Non-African American GFR(CKD) >90 (>60 ml/min/1.73 sqM)
[2023-04-30 10:30] LABS: Anisocytosis Slight; Basophils % (A) 0 %; Eosinophils # (A) 0.1 k/uL (0-0.7); Eosinophils % (A) 1 %; HCT 34.8 % (34.0-46.0); HGB 11.5 gm/dL (11.4-16.0); Hypochromasia Slight; Lymphocytes # (A) 0.3 k/uL (1.0-4.8); Lymphocytes % (A) 8 %; MCH 28.4 pg (25.0-35.0); MCV 86.1 fL (80.0-100.0); Mean Platelet Volume 8.1; Monocytes # (A) 0.3 k/uL (0-1.0); Monocytes % (A) 9 %; Neutrophils % (A) 81 %; RBC 4.04 m/uL (3.80-5.40); RDW 17.2 % (11.5-15.5); WBC 3.7 k/uL (3.8-10.6)
[2023-04-30 10:31] LABS: ALT 23 U/L (4-34); AST 30 U/L (14-36); Albumin 3.4 g/dL (3.5-5.0); Alkaline Phosphatase 52 U/L (38-126); Anion Gap 7 mmol/L; Blood Urea Nitrogen 6 mg/dL (7-17); Calcium 8.3 mg/dL (8.4-10.2); Carbon Dioxide 33 mmol/L (22-30); Chloride 90 mmol/L (98-107); Glucose 115 mg/dL (74-99); Potassium 2.6 mmol/L (3.5-5.1); Sodium 130 mmol/L (137-145); Total Bilirubin 1.1 mg/dL (0.2-1.3); Total Protein 6.2 g/dL (6.3-8.2)
[2023-04-30 10:43] LABS: Platelet Count 89 k/uL (150-450)
[2023-04-30] MEDS ORDERED: Potassium Replacement Protocol 1 EACH MISC MISCELLANE PRN (10:59)
[2023-04-30] MEDS: POTASSIUM CHLORIDE ER 20 MEQ TAB.ER PO SCH ×2 (12:11→15:28)
--- NOTE | 2023-04-30 12:58 | P.PN ---
Subjective Progress Note Date: 04/30/23 History of present illness: This is a 57 year old female with past medical history of hypertension, chronic daily use of alcohol, former smoker, DVT on Xarelto. Patient has had multiple hospitalizations for alcohol intoxication. We have been asked to evaluate the patient for A. fib with RVR. Patient presented to the emergency center on 04/26 with abdominal pain with history of ruptured bowel status post colostomy. Patient was found to be in A. fib with RVR and was provided Lopressor 5 mg IV push, continued on Lopressor 12.5 mg twice daily. Patient is currently in sinus rhythm. Patient denies having any chest pain or shortness of breath. Patient states her last alcohol intake was on Wednesday and she usually has 6-7 beers per day. Patient has a safety net maker at the bedside. EKG atrial fibrillation with ventricular rate of 156 bpm, #2 sinus rhythm at 94 bpm Abdominal ultrasound no acute process. Cholelithiasis. Hepatomegaly with fatty infiltration. CAT scan of the abdomen and pelvis with contrast no acute abdominal process. WBC 4.9, hemoglobin 9.9, platelet count 90. Sodium 140, potassium 4.1, creatinine 0.6. Lactic acid 6 followed by 2.8 and 1.2. Troponin negative 1. AST 109, ALT 46. Glucose 68. Echocardiogram reveals normal LV systolic function, moderate mitral regurgitati on, mild pulmonary hypertension. Home cardiac medications: Atorvastatin 20 mg at bedtime, Lasix 40 mg daily, magnesium oxide 400 mg daily, Xarelto 20,000,000 g daily 04/29 Patient is on CIWA protocol and required Haldol. This morning, she is not responsive to verbal stimuli. BB increased but unfortunately, patient is not taking oral medications. She went back into afib w RVR and cardizem gtt was resumed. Sodium 129, potassium 4.5. Hemoglobin is 9.8 and platelet count 64. 8/18 She is more awake and alert today. She is able to answer questions. She does have a sitter at the bedside. She is in a sinus rhythm. Heart rate is in the 90s, blood pressure 123/85. Patient is febrile with temperature max 101 Physical examination: Gen: This is a 57-year-old female. She is resting bed appears to be comfortable. VS: reviewed HEENT: Head is atraumatic, normocephalic. Pupils equal, round. Sclerae is anicteric. LUNGS: Clear to auscultation. No wheezes or rhonchi. No intercostal retractions. HEART: Regular rate and rhythm. No murmur. ABDOMEN: Soft No tenderness. EXTREMITIES: No pedal edema. No calf tenderness. NEUROLOGICAL: Patient is awake and alert. Assessment: A. fib with RVR, paroxysmal, new onset Alcohol intoxication Abdominal pain Elevated liver function tests History of DVT Plan: Continue patient's home cardiac medications including Xarelto Continue Lopressor and increase to 50 mg twice daily Cardiology will sign off this case and follow on an as-needed basis. Please reconsult for any new concerns. Patient may follow-up in the office in one to 2 weeks. Nurse practitioner note has been reviewed, I agree with documented findings and plan of care. Patient was seen and examined. Objective - Vital Signs Vital signs: Vital Signs Temp 98.6 F 04/30/23 08:00 Pulse 87 04/30/23 08:00 Resp 18 04/30/23 08:00 BP 123/85 04/30/23 08:00 Pulse Ox 92 L 04/30/23 08:00 FiO2 21 04/27/23 09:08 Intake & Output 04/29/23 04/30/23 04/30/23 18:59 06:59 18:59 Output Total 390 1100 600 Balance -390 -1100 -600 Output: Urine 300 1000 600 Straight 1000 Stool 90 100 Other: Voiding Method External Catheter External Catheter External Catheter - Labs CBC & Chem 7: 04/30/23 09:29 04/30/23 09:29
--- NOTE | 2023-04-30 13:26 | P.PN ---
Subjective Progress Note Date: 04/30/23 patient is a 57-year-old lady with past medical history significant for hyperlipidemia, hypertension presented to the ER because of his abdominal pain. Patient states she has been having abdominal pain for the last 3 days, he denies any complaint of nausea and vomiting. Patient had surgery for ruptured bowel earlier this year and ended up having a colostomy. Denies any fever or chills. Denies any shortness of breath or chest pain. Initial lab work done in the ER showed WBC 3.9, hemoglobin 11.3, platelet count 105, sodium 135, potassium 4.3, BUN 5, creatinine 0.56, AST 128, ALT 43, serum alcohol level 344 CT abdominal and pelvis done showed no acute abdominal/pelvic process, postsurgical changes from left lower quadrant ostomy. Hepatic steatosis Patient admitted to medicine service Patient when transferred to the floor, she went into A. fib with RVR, 04/28. Patient seen and examined. Patient is currently hallucinating, very irritable. But alert and able to answer orientation questions 04/29. Patient seen and examined. Currently patient is lethargic, less irrit able and hallucinating compared to yesterday 04/30. Patient seen and examined. Sitter at the bedside. Patient doing much better compared to yesterday, not requiring as much as Ativan as compared to before REVIEW OF SYSTEMS: Cannot be obtained as patient is currently lethargic PHYSICAL EXAMINATION: GENERAL: The patient is alert , not in any acute distress. Well developed, well nourished. HEENT: Pupils are round and equally reacting to light. EOMI. No scleral icterus. No conjunctival pallor. Normocephalic, atraumatic. No pharyngeal erythema. No thyromegaly. CARDIOVASCULAR: S1 and S2 present. No murmurs, rubs, or gallops. PULMONARY: Chest is clear to auscultation, no wheezing or crackles. ABDOMEN: Soft, nontender, nondistended, normoactive bowel sounds. No palpable organomegaly. MUSCULOSKELETAL: No joint swelling or deformity. EXTREMITIES: No cyanosis, clubbing, or pedal edema. NEUROLOGICAL: Gross neurological examination did not reveal any focal deficits. SKIN: No rashes. Assessment and plan Alcohol intoxication A. fib with RVR Alcohol hepatitis Alcohol abuse Lactic acidosis Hypertension Hyperlipidemia Monitor vital signs Monitor CBC Monitor CMP Continue CIWA protocol Delirium precautions Seizure precautions Continue thiamine and folic acid Continue Lopressor and Xarelto Cardiology following Psych following Labs and medication were reviewed.. Continue same treatment. Continue with symptomatic treatment. Resume home medication. Monitor labs and vitals. DVT and GI prophylaxis. Further recommendations as per clinical course of the patient Dictation was produced using [employer] dictation software. please excuse any grammatical, word or spelling errors. Objective - Vital Signs Vital signs: Vital Signs Temp 98.6 F 04/30/23 08:00 Pulse 87 04/30/23 08:00 Resp 18 04/30/23 08:00 BP 123/85 04/30/23 08:00 Pulse Ox 92 L 04/30/23 08:00 FiO2 21 04/27/23 09:08 Intake & Output 04/29/23 04/30/23 04/30/23 18:59 06:59 18:59 Output Total 390 1100 1625 Balance -390 1100 -1625 Output: Urine 300 1000 1575 Straight 1000 Stool 90 100 50 Other: Voiding Method External Catheter External Catheter External Catheter - Labs CBC & Chem 7: 04/30/23 09:29 04/30/23 09:29 Labs: Abnormal Lab Results - Last 24 Hours (Table) 04/30/23 04/30/23 Range/Units 09:29 09:29 WBC 3.7 L (3.8-10.6) k/uL RDW 17.2 H (11.5-15.5) % Plt Count 89 L (150-450) k/uL Lymphocytes # 0.3 L (1.0-4.8) k/uL Sodium 130 L (137-145) mmol/L Potassium 2.6 L* (3.5-5.1) mmol/L Chloride 90 L (98-107) mmol/L Carbon Dioxide 33 H (22-30) mmol/L BUN 6 L (7-17) mg/dL Glucose 115 H (74-99) mg/dL Calcium 8.3 L (8.4-10.2) mg/dL Total Protein 6.2 L (6.3-8.2) g/dL Albumin 3.4 L (3.5-5.0) g/dL
--- NOTE | 2023-04-30 13:32 | P.PN ---
Progress Note - Text Progress Note Date: 04/30/23 Interval History: Patient was seen resting in bed with her brother Maikol sitting at bedside. Patient is agreeable to having him present during the psychiatric interview. The patient is currently not reporting any suicidal or homicidal ideation, intention, and/or plan. She reports no current auditory or visual hallucinations. She reports no paranoia or other delusions. She reports improved sleep. She does report mild nausea but states it is improving. The patient acknowledges alcohol is a problem. Her brother reports they have tried many different options and resources however she continue sto relapse and they are at their wits' end. She is currently not open with AA and is agreeable to receiving resources. Mental Status Exam: General Appearance: Patient appears to be stated age is alert, directable, and cooperative. Behavior: Patient is calmly seated without any agitated behavior. Speech: Patient's speech is fluent and nonpressured. Mood/Affect: Mood is improving mildly, affect is congruent and euthymic. Suicidality/Homicidality: Patient denies any suicidal or homicidal ideation. Perceptions: Patient denies any visual hallucinations and denies any auditory hallucinations Though content/process: There is no evidence of any delusional thought content and thought process is linear and goal-directed. Memory and concentration: AOX3, grossly intact for the purposes of this session Judgment and insight: Improving mildly Vital Signs Temp 98.6 F 04/30/23 08:00 Pulse 87 04/30/23 08:00 Resp 18 04/30/23 08:00 BP 123/85 04/30/23 08:00 Pulse Ox 92 L 04/30/23 08:00 FiO2 21 04/27/23 09:08 Intake & Output 04/29/23 04/30/23 04/30/23 18:59 06:59 18:59 Output Total 390 1100 1625 Balance -390 -1100 -1625 Output: Urine 300 1000 1575 Straight 1000 Stool 90 100 50 Other: Voiding Method External Catheter External Catheter External Catheter Laboratory Results - Last 24 Hours 04/30/23 04/30/23 04/30/23 09:29 09:29 09:29 WBC 3.7 L RBC 4.04 Hgb 11.5 Hct 34.8 MCV 86.1 MCH 28.4 MCHC 33.0 RDW 17.2 H Plt Count 89 L MPV 8.1 Neutrophils % 81 Lymphocytes % 8 Monocytes % 9 Eosinophils % 1 Basophils % 0 Neutrophils # 3.0 Lymphocytes # 0.3 L Monocytes # 0.3 Eosinophils # 0.1 Basophils # 0.0 Hypochromasia Slight Anisocytosis Slight Sodium 130 L Potassium 2.6 L* Chloride 90 L Carbon Dioxide 33 H Anion Gap 7 BUN 6 L Creatinine 0.55 Est GFR (CKD-EPI)AfAm >90 Est GFR (CKD-EPI)NonAf >90 Glucose 115 H Plasma Lactic Acid Antoine 0.9 Calcium 8.3 L Total Bilirubin 1.1 AST 30 ALT 23 Alkaline Phosphatase 52 Ammonia <9 Total Protein 6.2 L Albumin 3.4 L Assessment Delirium - resolved Alcohol use disorder, severe Alcohol withdrawal Plan: -At this time patient DOES NOT meet criteria for inpatient psychiatric admission. -Delirium precautions recommended with patient including - avoiding use of narcotics and SOC[employer] CAMPAIGN MANAGER sedatives, limit anticholinergic medications when possible, frequent re-orientation, minimize use of restraints, open window shades during the day and close them at night -Would recommend the following medication changes/additions: Continue your management for alcohol withdrawal.[facility] protocol. -Continue 1:1 sitter for safety -bulbs farmworker to provide patient with outpatient mental health/psychiatry resources for appropriate follow up upon discharge -bulbs farmworker to provide patient substance use treatment resources including AA/NA meetings in the community. -bulbs farmworker to provide patient with access line number to call for inpatient substance rehab -Approximately 20 minutes were spent providing patient with support psychotherapy and motivational interviewing. -Communicated plan to patient's nurse -Psychiatry will sign off at this time. Recommend outpatient follow-up for substance abuse.
[2023-04-30] MEDS: METOPROLOL TARTRATE 50 MG TAB PO SCH (21:45)
[2023-05-01] MEDS: ACETAMINOPHEN TAB 325 MG TAB PO PRN (00:03)
[2023-05-01] MEDS: PANTOPRAZOLE 40 MG TABLET PO SCH ×2 (07:57→17:32)
[2023-05-01] MEDS ORDERED: diazePAM 5 MG TAB PO SCH (08:00)
[2023-05-01] MEDS: METOPROLOL TARTRATE 50 MG TAB PO SCH ×2 (08:25→20:39)
[2023-05-01] MEDS: FUROSEMIDE 40 MG TAB PO SCH (08:25)
[2023-05-01] MEDS: MAGNESIUM OXIDE 400 MG TAB PO SCH (08:25)
[2023-05-01] MEDS: RIVAROXABAN 20 MG TAB PO SCH (08:25)
[2023-05-01] MEDS: MULTIVITAMINS, THERA 1 EACH TAB PO SCH (08:26)
[2023-05-01] MEDS: VENLAFAXINE HCL ER 75 MG CAP PO SCH (08:26)
[2023-05-01] MEDS: THIAMINE 100 MG TAB PO SCH ×3 (08:26→21:42)
[2023-05-01] MEDS: FOLIC ACID 1 MG TAB PO SCH (08:26)
[2023-05-01] MEDS: FAMOTIDINE 20 MG TAB PO SCH ×2 (08:26→20:39)
[2023-05-01 09:48] LABS: African American GFR (CKD) >90 (>60 ml/min/1.73 sqM); Anion Gap 5 mmol/L; Blood Urea Nitrogen 6 mg/dL (7-17); Calcium 8.1 mg/dL (8.4-10.2); Carbon Dioxide 29 mmol/L (22-30); Chloride 100 mmol/L (98-107); Glucose 164 mg/dL (74-99); Non-African American GFR(CKD) >90 (>60 ml/min/1.73 sqM); Sodium 134 mmol/L (137-145)
[2023-05-01 10:05] LABS: Potassium 2.7 mmol/L (3.5-5.1)
[2023-05-01] MEDS: SODIUM CHLORIDE 0.9% 1,000 ML IV SCH ×3 (10:07→23:53)
[2023-05-01] MEDS: POTASSIUM CHLORIDE ER 20 MEQ TAB.ER PO SCH (12:09)
--- NOTE | 2023-05-01 14:52 | P.PN ---
Subjective Progress Note Date: 05/08/23 patient is a 57-year-old lady with past medical history significant for hyperlipidemia, hypertension presented to the ER because of his abdominal pain. Patient states she has been having abdominal pain for the last 3 days, he denies any complaint of nausea and vomiting. Patient had surgery for ruptured bowel earlier this year and ended up having a colostomy. Denies any fever or chills. Denies any shortness of breath or chest pain. Initial lab work done in the ER showed WBC 3.9, hemoglobin 11.3, platelet count 105, sodium 135, potassium 4.3, BUN 5, creatinine 0.56, AST 128, ALT 43, serum alcohol level 344 CT abdominal and pelvis done showed no acute abdominal/pelvic process, postsurgical changes from left lower quadrant ostomy. Hepatic steatosis Patient admitted to medicine service Patient when transferred to the floor, she went into A. fib with RVR, 04/28. Patient seen and examined. Patient is currently hallucinating, very irritable. But alert and able to answer orientation questions 04/29. Patient seen and examined. Currently patient is lethargic, less irrit able and hallucinating compared to yesterday 04/30. Patient seen and examined. Sitter at the bedside. Patient doing much better compared to yesterday, not requiring as much as Ativan as compared to before 05/01. Patient seen and examined. Much more alert compared to yesterday. Not requiring any sitter. REVIEW OF SYSTEMS: Denies any chest pain. Denies any nausea or vomiting. Denies any lightheadedness or dizziness PHYSICAL EXAMINATION: GENERAL: The patient is alert , not in any acute distress. Well developed, well nourished. HEENT: Pupils are round and equally reacting to light. EOMI. No scleral icterus. No conjunctival pallor. Normocephalic, atraumatic. No pharyngeal erythema. No thyromegaly. CARDIOVASCULAR: S1 and S2 present. No murmurs, rubs, or gallops. PULMONARY: Chest is clear to auscultation, no wheezing or crackles. ABDOMEN: Soft, nontender, nondistended, normoactive bowel sounds. No palpable organomegaly. MUSCULOSKELETAL: No joint swelling or deformity. EXTREMITIES: No cyanosis, clubbing, or pedal edema. NEUROLOGICAL: Gross neurological examination did not reveal any focal deficits. SKIN: No rashes. Assessment and plan Alcohol intoxication A. fib with RVR Alcohol hepatitis Alcohol abuse Lactic acidosis Hypertension Hyperlipidemia Monitor vital signs Monitor CBC Monitor CMP Continue CIWA protocol Delirium precautions Seizure precautions Continue thiamine and folic acid Continue Lopressor and Xarelto Cardiology following Psych following Labs and medication were reviewed.. Continue same treatment. Continue with symptomatic treatment. Resume home medication. Monitor labs and vitals. DVT and GI prophylaxis. Further recommendations as per clinical course of the patient Dictation was produced using [employer] dictation software. please excuse any grammatical, word or spelling errors. Objective - Vital Signs Vital signs: Vital Signs Temp 98.6 F 05/01/23 08:25 Pulse 68 05/01/23 12:10 Resp 18 05/01/23 12:10 BP 120/68 05/01/23 12:10 Pulse Ox 96 05/01/23 12:10 FiO2 21 05/01/23 07:55 Intake & Output 04/30/23 05/01/23 05/01/23 18:59 06:59 18:59 Intake Total 480 Output Total 0774 1450 900 Balance -2195 -1450 -900 Intake: Oral 480 Output: Urine 1925 1050 900 Stool 750 400 Other: Voiding Method External Catheter Indwelling Catheter Indwelling Catheter - Labs CBC & Chem 7: 04/30/23 09:29 05/01/23 09:01 Labs: Abnormal Lab Results - Last 24 Hours (Table) 05/01/23 Range/Units 09:01 Sodium 134 L (137-145) mmol/L Potassium 2.7 L* (3.5-5.1) mmol/L BUN 6 L (7-17) mg/dL Creatinine 0.42 L (0.52-1.04) mg/dL Glucose 164 H (74-99) mg/dL Calcium 8.1 L (8.4-10.2) mg/dL
[2023-05-02] MEDS: SODIUM CHLORIDE 0.9% 1,000 ML IV SCH ×2 (06:26→15:38)
[2023-05-02] MEDS: PANTOPRAZOLE 40 MG TABLET PO SCH ×2 (06:27→16:43)
[2023-05-02] MEDS: MAGNESIUM OXIDE 400 MG TAB PO SCH (08:35)
[2023-05-02] MEDS: METOPROLOL TARTRATE 50 MG TAB PO SCH ×2 (08:35→20:33)
[2023-05-02] MEDS: VENLAFAXINE HCL ER 75 MG CAP PO SCH (08:36)
[2023-05-02] MEDS: MULTIVITAMINS, THERA 1 EACH TAB PO SCH (08:36)
[2023-05-02] MEDS: FUROSEMIDE 40 MG TAB PO SCH (08:36)
[2023-05-02] MEDS: THIAMINE 100 MG TAB PO SCH ×3 (08:36→20:33)
[2023-05-02] MEDS: FOLIC ACID 1 MG TAB PO SCH (08:36)
[2023-05-02] MEDS: RIVAROXABAN 20 MG TAB PO SCH (08:36)
[2023-05-02] MEDS: FAMOTIDINE 20 MG TAB PO SCH ×2 (08:36→20:33)
--- NOTE | 2023-05-02 13:36 | P.PN ---
Subjective Progress Note Date: 05/02/23 patient is a 57-year-old lady with past medical history significant for hyperlipidemia, hypertension presented to the ER because of his abdominal pain. Patient states she has been having abdominal pain for the last 3 days, he denies any complaint of nausea and vomiting. Patient had surgery for ruptured bowel earlier this year and ended up having a colostomy. Denies any fever or chills. Denies any shortness of breath or chest pain. Initial lab work done in the ER showed WBC 3.9, hemoglobin 11.3, platelet count 105, sodium 135, potassium 4.3, BUN 5, creatinine 0.56, AST 128, ALT 43, serum alcohol level 344 CT abdominal and pelvis done showed no acute abdominal/pelvic process, postsurgical changes from left lower quadrant ostomy. Hepatic steatosis Patient admitted to medicine service Patient when transferred to the floor, she went into A. fib with RVR, 04/28. Patient seen and examined. Patient is currently hallucinating, very irritable. But alert and able to answer orientation questions 04/29. Patient seen and examined. Currently patient is lethargic, less irrit able and hallucinating compared to yesterday 04/30. Patient seen and examined. Sitter at the bedside. Patient doing much better compared to yesterday, not requiring as much as Ativan as compared to before 05/01. Patient seen and examined. Much more alert compared to yesterday. Not requiring any sitter. 20. Patient seen and examined. Doing much better, alert, answering question appropriately. Possible discharge in next 24 hours REVIEW OF SYSTEMS: Denies any chest pain. Denies any nausea or vomiting. Denies any lightheadedness or dizziness PHYSICAL EXAMINATION: GENERAL: The patient is alert , not in any acute distress. Well developed, well nourished. HEENT: Pupils are round and equally reacting to light. EOMI. No scleral icterus. No conjunctival pallor. Normocephalic, atraumatic. No pharyngeal erythema. No thyromegaly. CARDIOVASCULAR: S1 and S2 present. No murmurs, rubs, or gallops. PULMONARY: Chest is clear to auscultation, no wheezing or crackles. ABDOMEN: Soft, nontender, nondistended, normoactive bowel sounds. No palpable organomegaly. MUSCULOSKELETAL: No joint swelling or deformity. EXTREMITIES: No cyanosis, clubbing, or pedal edema. NEUROLOGICAL: Gross neurological examination did not reveal any focal deficits. SKIN: No rashes. Assessment and plan Alcohol intoxication A. fib with RVR Alcohol hepatitis Alcohol abuse Lactic acidosis Hypertension Hyperlipidemia Monitor vital signs Monitor CBC Monitor CMP Continue CIWA protocol Delirium precautions Seizure precautions Continue thiamine and folic acid Continue Lopressor and Xarelto Cardiology following Psych following Labs and medication were reviewed.. Continue same treatment. Continue with symptomatic treatment. Resume home medication. Monitor labs and vitals. DVT and GI prophylaxis. Further recommendations as per clinical course of the patient Dictation was produced using [employer] dictation software. please excuse any grammatical, word or spelling errors. Objective - Vital Signs Vital signs: Vital Signs Temp 98.6 F 05/02/23 08:32 Pulse 90 05/02/23 12:44 Resp 16 05/02/23 12:44 BP 110/62 05/02/23 12:44 Pulse Ox 96 05/02/23 12:44 FiO2 21 05/01/23 07:55 Intake & Output 05/01/23 05/02/23 05/02/23 18:59 06:59 18:59 Intake Total 360 360 Output Total 900 1300 Balance -900 -940 360 Intake: Oral 360 360 Output: Urine 900 1300 Uretheral (Martinez) 1000 Other: Voiding Method Indwelling Catheter Indwelling Catheter Indwelling Catheter # Voids 1 - Labs CBC & Chem 7: 04/30/23 09:29 05/01/23 09:01
[2023-05-02 15:29] LABS: African American GFR (CKD) >90 (>60 ml/min/1.73 sqM); Anion Gap 4 mmol/L; Blood Urea Nitrogen 7 mg/dL (7-17); Calcium 8.7 mg/dL (8.4-10.2); Carbon Dioxide 30 mmol/L (22-30); Chloride 98 mmol/L (98-107); Glucose 117 mg/dL (74-99); Non-African American GFR(CKD) >90 (>60 ml/min/1.73 sqM); Potassium 3.6 mmol/L (3.5-5.1); Sodium 132 mmol/L (137-145)
[2023-05-02] MEDS: MORPHINE SULFATE 4 MG/ML SYRINGE IV PRN (23:24)
[2023-05-03] MEDS: SODIUM CHLORIDE 0.9% 1,000 ML IV SCH ×2 (00:27→06:21)
[2023-05-03 06:15] VITALS: RESP 16
[2023-05-03] MEDS: PANTOPRAZOLE 40 MG TABLET PO SCH (06:20)
[2023-05-03 08:18] VITALS: BMI 29.8
[2023-05-03] MEDS: FAMOTIDINE 20 MG TAB PO SCH (09:43)
[2023-05-03] MEDS: FOLIC ACID 1 MG TAB PO SCH (09:43)
[2023-05-03] MEDS: MULTIVITAMINS, THERA 1 EACH TAB PO SCH (09:43)
[2023-05-03] MEDS: RIVAROXABAN 20 MG TAB PO SCH (09:43)
[2023-05-03] MEDS: MAGNESIUM OXIDE 400 MG TAB PO SCH (09:43)
[2023-05-03] MEDS: METOPROLOL TARTRATE 50 MG TAB PO SCH (09:44)
[2023-05-03] MEDS: VENLAFAXINE HCL ER 75 MG CAP PO SCH (09:44)
[2023-05-03] MEDS: THIAMINE 100 MG TAB PO SCH ×2 (09:44)
[2023-05-03] MEDS: FUROSEMIDE 40 MG TAB PO SCH (09:44)
[2023-05-03 09:45] LABS: ALT 19 U/L (4-34); AST 28 U/L (14-36); African American GFR (CKD) >90 (>60 ml/min/1.73 sqM); Albumin 3.1 g/dL (3.5-5.0); Alkaline Phosphatase 47 U/L (38-126); Blood Urea Nitrogen 5 mg/dL (7-17); Calcium 8.7 mg/dL (8.4-10.2); Carbon Dioxide 32 mmol/L (22-30); Glucose 125 mg/dL (74-99); Non-African American GFR(CKD) >90 (>60 ml/min/1.73 sqM); Total Bilirubin 0.4 mg/dL (0.2-1.3); Total Protein 5.5 g/dL (6.3-8.2)
[2023-05-03 10:16] LABS: Anion Gap 4 mmol/L; Chloride 98 mmol/L (98-107); Potassium 3.3 mmol/L (3.5-5.1); Sodium 134 mmol/L (137-145)
[2023-05-03 11:17] VITALS: TEMP 98.1
[2023-05-03] MEDS ORDERED: POTASSIUM CHLORIDE ER 20 MEQ TAB.ER PO STA ×2 (12:15)
[2023-05-03 13:24] VITALS: BP 111/76; PULSE 69
--- NOTE | 2023-05-03 13:57 | US ---
EXAMINATION TYPE: US venous doppler duplex UE RT DATE OF EXAM: 05/03/2023 COMPARISON: NONE CLINICAL INDICATION: Female, 57 years old with history of rule out DVT, red and warm; Recent IV right AC fossa; area of redness and swelling SIDE PERFORMED: Right Grayscale, color doppler, spectral doppler imaging performed of the deep veins of the upper extremiti es. Right Arm: There is evidence of superficial thrombus within the right cephalic vein at the antecubita l fossa. IMPRESSION: 1. Exam positive for SVT of the cephalic vein at the antecubital fossa. 2. No evidence for DVT within the right upper extremity.
--- NOTE | 2023-05-04 22:40 | P.DS ---
Providers Date of admission: 04/26/23 18:51 Attending physician: Gladys Persaud Consults: 04/27/23 10:50 Consult Physician Routine Consulting Provider: Mala Potts Consult Reason/Comments: Elevated LFTs, abdominal pain Do you want consulting provider notified?: Yes 04/27/23 12:13 Consult Physician Routine Consulting Provider: Narendra Arellano Consult Reason/Comments: afib with rvr Do you want consulting provider notified?: Yes 04/28/23 11:21 Consult Physician Routine Consulting Provider: Sterling Cadet Consult Reason/Comments: ETOH Do you want consulting provider notified?: Yes Primary care physician: Constantine Figueroa [facility] Course: Final Diagnosis Acute alcohol intoxication Atrial fibrillation with rapid ventricular rate Alcoholic hepatitis Superficial venous thrombus at the right AC from IV site Mild pulmonary hypertension Chronic alcohol abuse Lactic acidosis resolved Hypertension hyperlipidemia HX anxiety/Depression Hx of DVT anticoagulated with xarelto. GI prophylaxis Full Code Discharge disposition Patient is stable for discharge home and she has not required Ativan in 3-4 days. Patient recommending for total alcohol cessation this is discussed with patient. Cardiology has added metoprolol and patient to continue 50 mg twice a day on discharge. Patient is given a short course of oral antibiotics on discharge for the superficial venous thrombosis at the right AC site from IV. There is also area of erythema and tenderness to the right wrist IV site. Follow up with PCP in 1 to 2 days. Hospital Course Christine is a 57-year-old lady with past medical history significant for hyperlipidemia, hypertension presented to the ER because of \ abdominal pain. Patient states she has been having abdominal pain for the last 3 days, denies any complaint of nausea and vomiting. Patient had surgery for ruptured bowel earlier this year and ended up having a colostomy. Denies any fever or chills. Denies any shortness of breath or chest pain. Initial lab work done in the ER showed WBC 3.9, hemoglobin 11.3, platelet count 105, sodium 135, potassium 4.3, BUN 5, creatinine 0.56, AST 128, ALT 43, serum alcohol level 344. CT abdominal and pelvis done showed no acute abdominal/pelvic process, postsurgical changes from left lower quadrant ostomy. Hepatic steatosis. Patient was admitted to the hospital under medicine for the acute alcohol intoxication and likely alcoholic gastritis. Patient when transferred to the floor, she went into A. fib with RVR and cardiology was consulted. Patient had echocardiogram done showing normal LV systolic function moderate MR and mild pulmonary hypertension. Cardiology evaluated the patient and she was started on metoprolol. Heart rate is now controlled. Patient has not required ativan in 3 days. Patient did have 2 IV sites in the right arm one in the wrist and one near the AC fossa. both sites are now erythematous and hard, swollen. A venous doppler was done negative for DVT but does show a superficial venous thrombus in the right AC. Patient can use ice and elevation than switch to warm compress and will be given empiric antibiotics. Liver enzymes have normalized. Sodium now 134. Patient is denying chest pain, denying shortness of breath. No nausea vomiting or diarrhea. She is tolerating diet and no signs of active withdrawal currently. Lungs are clear S1 S2 auscultated abdomen soft and nontender. Alert x 3. Patient can be discharged home with the above mentioned recommendations. Please see medication reconciliation for a list of current medication. Thank you for allowing us to participate in the care of this patient. The impression and plan of care has been dictated by Amita Nelson, Nurse Practitioner as directed. Dr. Erin MD I have performed a history and physical examination and medical decision making of this patient, discussed the same with the dictator, and agree with the dictators assessment and plan as written, documented as a scribe. Based on total visit time, I have performed more than 50% of this visit. Patient Condition at Discharge: Stable Plan - Discharge Summary Discharge Rx Participant: Yes New Discharge Prescriptions: New Metoprolol Tartrate [Lopressor] 50 mg PO BID #60 tab Doxycycline [Vibramycin] 100 mg PO BID 7 Days #14 capsule Continue Rivaroxaban [Xarelto] 20 mg PO DAILY 30 Days tab Folic Acid 1 mg PO DAILY tab Multivitamins, Thera [Multivitamin (formulary)] 1 tab PO DAILY Furosemide [Lasix] 40 mg PO DAILY Magnesium Oxide [Magox 400] 400 mg PO DAILY Pantoprazole Sodium [Protonix] 20 mg PO DAILY traZODone HCL [Desyrel] 200 mg PO HS PRN PRN Reason: Insomnia Thiamine [Vitamin B-1] 100 mg PO BID Sodium Chloride 0.65% Nasal [Deep Sea (Saline)] 2 spr EA NOSTRIL QID PRN PRN Reason: Allergy Symptoms Liraglutide [Saxenda] 3 mg SQ DAILY Atorvastatin [Lipitor] 20 mg PO HS QUEtiapine [SEROquel] 50 mg PO HS PRN 30 Days #30 tab PRN Reason: Agitation Or Acute Psychosis Acetaminophen Tab [Tylenol] 650 mg PO Q6HR PRN tab PRN Reason: Fever And/ Or Pain Venlafaxine HCl [Effexor XR] 225 mg PO DAILY Discharge Medication List Rivaroxaban [Xarelto] 20 mg PO DAILY 30 Days tab 01/19/22 [Rx] Folic Acid 1 mg PO DAILY tab 03/19/22 [Rx] Multivitamins, Thera [Multivitamin (formulary)] 1 tab PO DAILY 04/19/22 [History] Atorvastatin [Lipitor] 20 mg PO HS 11/23/22 [History] Furosemide [Lasix] 40 mg PO DAILY 11/23/22 [History] Liraglutide [Saxenda] 3 mg SQ DAILY 11/23/22 [History] Sodium Chloride 0.65% Nasal [Deep Sea (Saline)] 2 spr EA NOSTRIL QID PRN 11/23/22 [History] Thiamine [Vitamin B-1] 100 mg PO BID 11/23/22 [History] QUEtiapine [SEROquel] 50 mg PO HS PRN 30 Days #30 tab 11/29/22 [Rx] Magnesium Oxide [Magox 400] 400 mg PO DAILY 01/28/23 [History] Pantoprazole Sodium [Protonix] 20 mg PO DAILY 01/28/23 [History] Acetaminophen Tab [Tylenol] 650 mg PO Q6HR PRN tab 03/23/23 [Rx] Venlafaxine HCl [Effexor XR] 225 mg PO DAILY 04/26/23 [History] traZODone HCL [Desyrel] 200 mg PO HS PRN 04/26/23 [History] Doxycycline [Vibramycin] 100 mg PO BID 7 Days #14 capsule 05/03/23 [Rx] Metoprolol Tartrate [Lopressor] 50 mg PO BID #60 tab 05/03/23 [Rx] Follow up Appointment(s)/Referral(s): Narendra Arellano MD [STAFF PHYSICIAN] - 1 Week Mala Potts MD [STAFF PHYSICIAN] - 1 Week Constantine Figueroa DO [Primary Care Provider] - 1-2 days [facility] [NON-STAFF] - 1 Week Ambulatory/Diagnostic Orders: Comprehensive Metabolic Panel [LAB.AMB] Time Frame: 3 Days, Location: None Selected Patient Instructions/Handouts: Superficial Thrombophlebitis (DC), Alcohol Intoxication (DC) Activity/Diet/Wound Care/Special Instructions: Recommend total alcohol cessation and follow up with AA and possible rehab, information has been provided on discharge for outpatient community resources Follow up with cardiology in 1 to 2 weeks, continue on metoprolol BID for heart rate control Follow up with Dr. Leola Potts with GI services outpatient Follow up with primary care Dr. Constantine Figueroa Repeat labs in 2 to 3 days Complete antibiotics for the superficial venous thrombus to the right arm/ can use warm compress Discharge/Stand Alone Forms: AA Meetings [facility], Community Resources, Outpatient Counseling, In Substance Abuse Facilities, Personal [employer] Department Chair Discharge Disposition: HOME SELF-CARE
== END 2023-05-03 16:13 | disposition home or self-care (01) | DRG 775 ==
LOC: EC 14:41 → 4SSUR 18:51 → OBSVTOIN 18:51 → 4SSUR 04-27 02:29 → 3SCARD 04-27 14:19
PROVIDERS: ADMIT Internal Medicine; ATTEND Internal Medicine
DX: F10.229 Alcohol dependence with intoxication, unspecified (principal); F10.231 Alcohol dependence with withdrawal delirium; K70.10 Alcoholic hepatitis without ascites; Y90.8 Blood alcohol level of 240 mg/100 ml or more; I48.0 Paroxysmal atrial fibrillation; K70.9 Alcoholic liver disease, unspecified; Z79.01 Long term (current) use of anticoagulants; E66.9 Obesity, unspecified; Z68.29 Body mass index [BMI] 29.0-29.9, adult; E87.20 Acidosis, unspecified; E87.1 Hypo-osmolality and hyponatremia; T82.868A Thrombosis due to vascular prosthetic devices, implants and grafts, initial encounter; K76.82 Hepatic encephalopathy; E78.5 Hyperlipidemia, unspecified; E86.0 Dehydration; F32.A Depression, unspecified; F41.9 Anxiety disorder, unspecified; I10 Essential (primary) hypertension; I27.20 Pulmonary hypertension, unspecified; I34.0 Nonrheumatic mitral (valve) insufficiency; K29.20 Alcoholic gastritis without bleeding; K76.0 Fatty (change of) liver, not elsewhere classified; K80.20 Calculus of gallbladder without cholecystitis without obstruction; Z87.891 Personal history of nicotine dependence; Z71.3 Dietary counseling and surveillance; Z28.310 Unvaccinated for COVID-19; Z79.899 Other long term (current) drug therapy; Z86.718 Personal history of other venous thrombosis and embolism; Z93.3 Colostomy status; Z88.1 Allergy status to other antibiotic agents; Z71.41 Alcohol abuse counseling and surveillance of alcoholic
CPT/HCPCS: 36415; 74177; 76700; 80048; 80053; 80320; 81003; 82140; 83605; 83690; 83735; 84100; 84484; 85025; 85610; 85730; 93005; 93306; 94760; 96361; 96374; 96375; 99285

== ENCOUNTER 2023-06-22 12:52 | Observation (INO) | payer OTHER ==
[2023-06-22] MEDS ORDERED: droPERidol 5 MG/2 ML VIAL IVP ONE (13:08)
--- NOTE | 2023-06-22 13:12 | ED ---
General Adult HPI - General Chief complaint: Alcohol Stated complaint: vomiting Time Seen by Provider: 06/22/23 12:53 Source: patient, EMS, RN notes reviewed Mode of arrival: EMS Limitations: no limitations - History of Present Illness Initial comments: 58-year-old female presents emergency Department with chief complaint of nausea vomiting abdominal discomfort, alcohol use. Patient is well-known emergency department had recurrent issues with alcohol abuse. Patient states that she does drink this morning states he started vomiting. She denies any localized abdominal pain denies chest pain no palpitations denies fevers chills no flank pain. - Related Data Home Medications Medication Instructions Recorded Confirmed Multivitamins, Thera [Multivitamin 1 tab PO DAILY 04/19/22 06/22/23 (formulary)] Atorvastatin [Lipitor] 20 mg PO DIRECTED 11/23/22 06/22/23 Furosemide [Lasix] 40 mg PO DIRECTED 11/23/22 06/22/23 Sodium Chloride 0.65% Nasal [Deep 2 spr EA NOSTRIL QID PRN 11/23/22 06/22/23 Sea (Saline)] Thiamine [Vitamin B-1] 100 mg PO DIRECTED 11/23/22 06/22/23 Pantoprazole Sodium [Protonix] 20 mg PO DIRECTED 01/28/23 06/22/23 Venlafaxine HCl [Effexor XR] 225 mg PO DAILY 04/26/23 06/22/23 traZODone HCL [Desyrel] 200 mg PO HS PRN 04/26/23 06/22/23 Folic Acid 1 mg PO DIRECTED 06/22/23 06/22/23 QUEtiapine [SEROquel] 50 mg PO DIRECTED PRN 06/22/23 06/22/23 Rivaroxaban [Xarelto] 20 mg PO DIRECTED 06/22/23 06/22/23 Previous Rx's Medication Instructions Recorded Acetaminophen Tab [Tylenol] 650 mg PO Q6HR PRN tab 03/23/23 Metoprolol Tartrate [Lopressor] 50 mg PO BID #60 tab 05/03/23 Allergies Allergy/AdvReac Type Severity Reaction Status Date / Time bacitracin Allergy Rash/Hives Verified 05/28/23 19:48 cephalexin [From Keflex] Allergy Itching Verified 05/28/23 19:48 Review of Systems ROS Statement: Those systems with pertinent positive or pertinent negative responses have been documented in the HPI. ROS Other: All systems not noted in ROS Statement are negative. Past Medical History Past Medical History: Deep Vein Thrombosis (DVT), Hypertension Additional Past Medical History / Comment(s): concussion History of Any Multi-Drug Resistant Organisms: None Reported Past Surgical History: No Surgical Hx Reported Additional Past Surgical History / Comment(s): jaw surgery, colostomy Past Anesthesia/Blood Transfusion Reactions: No Reported Reaction Past Psychological History: Anxiety, Depression Smoking Status: Former smoker Past Alcohol Use History: Abuse, Daily, Heavy Past Drug Use History: None Reported - Past Family History Father Additional Family Medical History / Comment(s): Spleen CA Mother Family Medical History: COPD Additional Family Medical History / Comment(s): empysema General Exam Limitations: no limitations General appearance: alert, in no apparent distress Head exam: Present: atraumatic, normocephalic, normal inspection Eye exam: Present: normal appearance, PERRL, EOMI. Absent: scleral icterus, conjunctival injection, periorbital swelling Respiratory exam: Present: normal lung sounds bilaterally. Absent: respiratory distress, wheezes, rales, rhonchi, stridor Cardiovascular Exam: Present: regular rate, normal rhythm, normal heart sounds. Absent: systolic murmur, diastolic murmur, rubs, gallop, clicks GI/Abdominal exam: Present: soft, normal bowel sounds. Absent: distended, tenderness, guarding, rebound, rigid Neurological exam: Present: alert, oriented X3 Skin exam: Present: warm, dry, intact, normal color. Absent: rash Course Vital Signs 06/22/23 12:58 Temperature 97.6 F Pulse Rate 71 Respiratory 18 Rate Blood Pressure 113/72 O2 Sat by Pulse 99 Oximetry EKG Findings - EKG Comments: EKG Findings:: 13:31 sinus rhythm with a rate of 81.pr 149 [id number] QT/QTC 418/455 - EKG Results: EKG: interpreted by HEATHER Medical Decision Making - Medical Decision Making Was pt. sent in by a medical professional or institution (, PA, CALL CENTER OPERATOR, urgent care, hospital, or skilled nursing...) When possible be specific @ -[No] Did you speak to anyone other than the patient for history (EMS, parent, family, police, friend...)? What history was obtained from this source @ -[No] Did you review nursing and triage notes (agree or disagree)? Why? @ -[I reviewed and agree with nursing and triage notes] Were old charts reviewed (outside hosp., previous admission, EMS record, old EKG, old radiological studies, urgent care reports/EKG's, skilled nursing records)? Report findings @ -[No old charts were reviewed] Differential Diagnosis (chest pain, altered mental status, abdominal pain women, abdominal pain men, vaginal bleeding, weakness, fever, dyspnea, syncope, headache, dizziness, GI bleed, back pain, seizure, CVA, palpatations, mental health, musculoskeletal)? @ -[Differential Abdominal Pain Women: Appendicitis, Cholecystitis, diverticulosis, ischemic bowel, pancreatitis, hepatitis, UTI, gastroenteritis, AAA, incarcerated hernia, bowel obstruction, c onstipation, inflammatory bowel, hepatitis, peptic ulcer disease, splenic infarction, perforated viscus, vulvitis, ovarian torsion, PID, kidney stone, placenta abruption, this is not meant to be an all-inclusive listle] EKG interpreted by me (3pts min.). @ -[As above] X-rays interpreted by me (1pt min.). @ -[None done] CT interpreted by me (1pt min.). @ -[None done] U/S interpreted by me (1pt. min.). @ -[None done] What testing was considered but not performed or refused? (CT, X-rays, U/S, labs)? Why? @ -[None] What meds were considered but not given or refused? Why? @ -[None] Did you discuss the management of the patient with other professionals (professionals i.e. , PA, CALL CENTER OPERATOR, lab, RT, psych nurse, social work associate, wellness guide, teacher, airconditioning drafting officer, case repairer)? Give summary @ -[Dr. Persaud for admission given blood alcohol over 400] Was smoking cessation discussed for >3mins.? @ -[No] Was critical care preformed (if so, how long)? @ -[No] Were there social determinants of health that impacted care today? How? (Homelessness, low income, unemployed, alcoholism, drug addiction, transportation, low edu. Level, literacy, decrease access to med. care, care home, rehab)? @ -[No] Was there de-escalation of care discussed even if they declined (Discuss DNR or withdrawal of care, Hospice)? DNR status @ -[No] What co-morbidities impacted this encounter? (DM, HTN, Smoking, COPD, CAD, Cancer, CVA, ARF, Chemo, Hep., AIDS, mental health diagnosis, sleep apnea, morbid obesity)? @ -[None] Was patient admitted / discharged? Hospital course, mention meds given and route, prescriptions, significant lab abnormalities, going to OR and other pertinent info. @ -Admitted for observation secondary to blood alcohol level [id number] with no right, acute nausea vomiting patient was placed on CIWA and alcohol withdrawal protocol] Undiagnosed new problem with uncertain prognosis? @ -[No] Drug Therapy requiring intensive monitoring for toxicity (Heparin, Nitro, Insulin, Cardizem)? @ -[No] Were any procedures done? @ -[No] Diagnosis/symptom? @ -[alcohol intoxication] Acute, or Chronic, or Acute on Chronic? @ -[acute] Uncomplicated (without systemic symptoms) or Complicated (systemic symptoms)? @ -[uncomplicated Side effects of treatment? @ -[No] Exacerbation, Progression, or Severe Exacerbation? @ -[No] Poses a threat to life or bodily function? How? (Chest pain, [place], [place], pneumonia, PE, COPD, DKA, ARF, appy, cholecystitis, CVA, Diverticulitis, Homicidal, Suicidal, threat to staff... and all critical care pts) @ -[No] - Lab Data Result diagrams: 06/22/23 13:38 06/22/23 13:38 Lab Results 06/22/23 06/22/23 06/22/23 Range/Units 13:38 13:38 16:45 WBC 4.0 (3.8-10.6) k/uL RBC 3.81 (3.80-5.40) m/uL Hgb 10.6 L (11.4-16.0) gm/dL Hct 33.5 L (34.0-46.0) % MCV 87.9 (80.0-100.0) fL MCH 27.7 (25.0-35.0) pg MCHC 31.5 (31.0-37.0) g/dL RDW 16.3 H (11.5-15.5) % Plt Count 250 D (150-450) k/uL MPV 8.0 Neutrophils % 51 % Lymphocytes % 37 % Monocytes % 6 % Eosinophils % 1 % Basophils % 0 % Neutrophils # 2.0 (1.3-7.7) k/uL Lymphocytes # 1.5 (1.0-4.8) k/uL Monocytes # 0.2 (0-1.0) k/uL Eosinophils # 0.1 (0-0.7) k/uL Basophils # 0.0 (0-0.2) k/uL Hypochromasia Moderate Anisocytosis Slight Sodium 142 (137-145) mmol/L Potassium 4.4 (3.5-5.1) mmol/L Chloride 106 (98-107) mmol/L Carbon Dioxide 24 (22-30) mmol/L Anion Gap 12 mmol/L BUN 7 (7-17) mg/dL Creatinine 0.51 L (0.52-1.04) mg/dL Est GFR (CKD-EPI)AfAm >90 (>60 ml/min/1.73 sqM) Est GFR (CKD-EPI)NonAf >90 (>60 ml/min/1.73 sqM) Glucose 80 (74-99) mg/dL Calcium 8.7 (8.4-10.2) mg/dL Total Bilirubin 0.4 (0.2-1.3) mg/dL AST 31 (14-36) U/L ALT 14 (4-34) U/L Alkaline Phosphatase 63 (38-126) U/L Total Protein 6.5 (6.3-8.2) g/dL Albumin 4.0 (3.5-5.0) g/dL Lipase 158 (23-300) U/L Urine Color Colorless Urine Appearance Clear (Clear) Urine pH 5.0 (5.0-8.0) Ur Specific [place] 1.004 (1.001-1.035) Urine Protein Negative (Negative) Urine Glucose (UA) Negative (Negative) Urine Ketones Trace H (Negative) Urine Blood Negative (Negative) Urine Nitrite Negative (Negative) Urine Bilirubin Negative (Negative) Urine Urobilinogen <2.0 (<2.0) mg/dL Ur Leukocyte Esterase Negative (Negative) Serum Alcohol 438 H* mg/dL Disposition Clinical Impression: Abdominal pain, Alcohol intoxication Disposition: ADMITTED IP TO THIS [facility] Time of Disposition: 15:11
[2023-06-22 14:04] LABS: Anisocytosis Slight; Basophils % (A) 0 %; Eosinophils # (A) 0.1 k/uL (0-0.7); Eosinophils % (A) 1 %; HCT 33.5 % (34.0-46.0); HGB 10.6 gm/dL (11.4-16.0); Hypochromasia Moderate; Lymphocytes # (A) 1.5 k/uL (1.0-4.8); Lymphocytes % (A) 37 %; MCH 27.7 pg (25.0-35.0); MCHC 31.5 g/dL (31.0-37.0); MCV 87.9 fL (80.0-100.0); Monocytes # (A) 0.2 k/uL (0-1.0); Monocytes % (A) 6 %; Neutrophils % (A) 51 %; RBC 3.81 m/uL (3.80-5.40); RDW 16.3 % (11.5-15.5)
[2023-06-22 14:06] LABS: Platelet Count 250 k/uL (150-450)
[2023-06-22 14:20] LABS: ALT 14 U/L (4-34); AST 31 U/L (14-36); African American GFR (CKD) >90 (>60 ml/min/1.73 sqM); Alkaline Phosphatase 63 U/L (38-126); Anion Gap 12 mmol/L; Blood Urea Nitrogen 7 mg/dL (7-17); Calcium 8.7 mg/dL (8.4-10.2); Carbon Dioxide 24 mmol/L (22-30); Chloride 106 mmol/L (98-107); Glucose 80 mg/dL (74-99); Lipase 158 U/L (23-300); Non-African American GFR(CKD) >90 (>60 ml/min/1.73 sqM); Potassium 4.4 mmol/L (3.5-5.1); Sodium 142 mmol/L (137-145); Total Bilirubin 0.4 mg/dL (0.2-1.3); Total Protein 6.5 g/dL (6.3-8.2)
[2023-06-22 14:36] LABS: Alcohol 438 mg/dL
[2023-06-22] MEDS ORDERED: ONDANSETRON 4 MG/2 ML VIAL IVP STA (15:10)
[2023-06-22] MEDS ORDERED: ONDANSETRON 4 MG/2 ML VIAL IVP PRN (15:11)
[2023-06-22] MEDS ORDERED: NALOXONE 0.4 MG/ML 1 ML VIAL IV PRN (15:11)
[2023-06-22] MEDS ORDERED: LORazepam 0.5 MG TAB PO PRN (15:12)
[2023-06-22] MEDS ORDERED: LORazepam 1 MG TAB PO PRN ×2 (15:12)
[2023-06-22] MEDS ORDERED: LORazepam 2 MG/ML INJ IV PRN (15:12)
[2023-06-22 17:02] LABS: Appearance,Urine Clear (Clear); Bilirubin,Urine Negative (Negative); Blood,Urine Negative (Negative); Color,Urine Colorless; Glucose,Urine (UA) Negative (Negative); Ketones,Urine Trace (Negative); Leukocyte Esterase,Urine Negative (Negative); Nitrite,Urine Negative (Negative); Protein,Urine Negative (Negative); Specific Gravity,Urine 1.004 (1.001-1.035); Urobilinogen,Urine <2.0 mg/dL (<2.0)
[2023-06-22] MEDS: SODIUM CHLORIDE 0.9% 1,000 ML IV SCH (17:31)
--- NOTE | 2023-06-22 22:53 | P.HPIM ---
History of Present Illness H&P Date: 06/22/23 Chief Complaint: Nausea and vomiting Patient is a 57-year-old female with a past medical history of hypertension, history of DVT, Rodwell atrial fibrillation on anticoagulation with Xarelto, history of left colostomy, anxiety/depression and prior history of smoking presents to ER due to alcohol intoxication. Patient is also complaining of nausea vomiting and abdominal discomfort. Patient states that last drink was yesterday evening and patient started having nausea and vomiting this morning. Patient felt very anxious and scared and called the ER. Denies any complaints of chest pain or shortness of breath. No leg swelling. No cough or sputum production. No fever no chills. Laboratory showed WBC 4.0 hemoglobin 10.6 and platelets 250 Sodium 142 potassium 4.4 chloride 106 bicarb is 24 BUN 7 and creatinine 0.51, liver enzymes not elevated. Lipase 158 Urinalysis is negative for infection Serum alcohol level is 438 Review of Systems ROS unobtainable: due to mental status Past Medical History Past Medical History: Deep Vein Thrombosis (DVT), Hypertension Additional Past Medical History / Comment(s): concussion History of Any Multi-Drug Resistant Organisms: None Reported Past Surgical History: No Surgical Hx Reported Additional Past Surgical History / Comment(s): jaw surgery, colostomy 01/2023 Past Anesthesia/Blood Transfusion Reactions: No Reported Reaction Past Psychological History: Anxiety, Depression Smoking Status: Former smoker Past Alcohol Use History: Abuse, Daily, Heavy Additional Past Alcohol Use History / Comment(s): states she drinks 4 beers daily, no other alcoholic beverages Past Drug Use History: None Reported - Past Family History Father Additional Family Medical History / Comment(s): Spleen CA Mother Family Medical History: COPD Additional Family Medical History / Comment(s): empysema Medications and Allergies Home Medications Medication Instructions Recorded Confirmed Type Multivitamins, Thera [Multivitamin 1 tab PO DAILY 04/19/22 06/22/23 History (formulary)] Atorvastatin [Lipitor] 20 mg PO DIRECTED 11/23/22 06/22/23 History Furosemide [Lasix] 40 mg PO DIRECTED 11/23/22 06/22/23 History Sodium Chloride 0.65% Nasal [Deep 2 spr EA NOSTRIL QID PRN 11/23/22 06/22/23 History Sea (Saline)] Thiamine [Vitamin B-1] 100 mg PO DIRECTED 11/23/22 06/22/23 History Pantoprazole Sodium [Protonix] 20 mg PO DIRECTED 01/28/23 06/22/23 History Acetaminophen Tab [Tylenol] 650 mg PO Q6HR PRN tab 03/23/23 06/22/23 Rx Venlafaxine HCl [Effexor XR] 225 mg PO DAILY 04/26/23 06/22/23 History traZODone HCL [Desyrel] 200 mg PO HS PRN 04/26/23 06/22/23 History Metoprolol Tartrate [Lopressor] 50 mg PO BID #60 tab 05/03/23 06/22/23 Rx Folic Acid 1 mg PO DIRECTED 06/22/23 06/22/23 History QUEtiapine [SEROquel] 50 mg PO DIRECTED PRN 06/22/23 06/22/23 History Rivaroxaban [Xarelto] 20 mg PO DIRECTED 06/22/23 06/22/23 History Allergies Allergy/AdvReac Type Severity Reaction Status Date / Time bacitracin Allergy Rash/Hives Verified 05/28/23 19:48 cephalexin [From Keflex] Allergy Itching Verified 05/28/23 19:48 Physical Exam Vitals: Vital Signs Temp Pulse Pulse Resp BP BP Pulse Ox 06/22/23 19:35 98.5 F 94 20 115/78 95 06/22/23 12:58 97.6 F 71 18 113/72 99 Intake and Output 06/22/23 06/22/23 06/22/23 06:59 14:59 22:59 Other: Weight 99.79 kg 99.79 kg PHYSICAL EXAMINATION: Patient is lying in the bed,, no acute distress, awake alert and oriented. But lethargic and drowsy. HEENT: Normocephalic. Neck is supple. Pupils reactive. Nostrils clear. Oral cavity is moist. Neck reveals no JVD, carotid bruits, or thyromegaly. CHEST EXAMINATION: Trachea is central. Symmetrical expansion. Lung andujar clear to auscultation and percussion. CARDIAC: Normal S1, S2 with no gallops. No murmurs ABDOMEN: Soft. Bowel sounds present. Nontender. No organomegaly. No abdominal bruits. Extremities: reveal no edema. No clubbing or cyanosis Neurologically awake, alert, oriented x2-3. No gross focal deficits noted Skin: No rash or skin lesions. Psychiatric: Coperative. Could not be assessed completely musculoskeletal: No joint swelling or deformity. Results CBC & Chem 7: 06/22/23 13:38 06/22/23 13:38 Labs: Abnormal Lab Results - Last 24 Hours (Table) 06/22/23 06/22/23 06/22/23 Range/Units 13:38 13:38 16:45 Hgb 10.6 L (11.4-16.0) gm/dL Hct 33.5 L (34.0-46.0) % RDW 16.3 H (11.5-15.5) % Creatinine 0.51 L (0.52-1.04) mg/dL Urine Ketones Trace H (Negative) Serum Alcohol 438 H* mg/dL Thrombosis Risk Factor Assmnt - DVT/VTE Prophylaxis DVT/VTE Prophylaxis: Pharmacologic Prophylaxis ordered - Choose All That Apply Any of the Below Risk Factors Present?: Yes Each Factor Represents 1 point: Age 41-60 years Each Risk Factor Represents 3 Points: History of DVT/PE Thrombosis Risk Factor Assessment Total Risk Factor Score: 4 Thrombosis Risk Factor Assessment Level: Moderate Risk Assessment and Plan Assessment: Acute alcohol intoxication with level 438 Nausea vomiting and abdominal discomfort Paroxysmal atrial fibrillation on anticoagulation with Xarelto Hypertension History of left lower extremity DVT History of concussions injury Heavy alcohol abuse Prior history of smoking Left colostomy bag care Anxiety/depression DVT prophylaxis patient is already on Eliquis. GI prophylaxis with PPI Plan: Patient presented on IV hydration with normal saline. Continue with thiamine and multivitamins. Continue to monitor for alcohol withdrawal symptoms. Patient was started back on home medications and follow-up closely. Colostomy care as needed. Time with Patient: Greater than 30
[2023-06-22] MEDS ORDERED: NON FORMULARY DRUG (Pantoprazole Sodium [Protonix] 20 MG Tablet) PO SCH (23:00)
[2023-06-22] MEDS ORDERED: RIVAROXABAN 20 MG TAB PO SCH (23:00)
[2023-06-23] MEDS: SODIUM CHLORIDE 0.9% 1,000 ML IV SCH ×3 (05:34→20:46)
[2023-06-23] MEDS: METOPROLOL TARTRATE 50 MG TAB PO SCH ×2 (08:06→21:22)
[2023-06-23] MEDS: THIAMINE 100 MG TAB PO SCH (08:06)
[2023-06-23] MEDS: ACETAMINOPHEN TAB 325 MG TAB PO PRN (09:19)
[2023-06-23] MEDS: LORazepam 1 MG TAB PO PRN ×3 (09:33→22:46)
[2023-06-23 11:13] LABS: Basophils # (A) 0.03 X 10*3/uL (0.00-0.10); Basophils % (A) 0.6 %; Eosinophils # (A) 0.03 X 10*3/uL (0.04-0.35); Eosinophils % (A) 0.6 %; HCT 31.4 % (37.2-46.3); HGB 9.5 d/dL (12.0-15.0); Lymphocytes # (A) 1.38 X 10*3/uL (0.90-5.00); Lymphocytes % (A) 29.9 %; MCH 26.2 pg (27.0-32.0); MCHC 30.3 d/dL (32.0-37.0); MCV 86.7 FL (80.0-97.0); Mean Platelet Volume 9.2 FL (9.5-12.2); Monocytes # (A) 0.49 X 10*3/uL (0.20-1.00); Monocytes % (A) 10.6 %; NRBC Per 100 WBC 0 X 10*3/uL (0.00-0.01); Neutrophils # (A) 2.68 X 10*3/uL (1.80-7.70); Neutrophils % (A) 58.1 %; Platelet Count 209 X 10*3/uL (140-440); RBC 3.62 X 10*6/uL (4.10-5.20); RDW 16.7 % (11.5-14.5); WBC 4.62 X 10*3/uL (4.50-10.00)
[2023-06-23 11:26] LABS: Blood Urea Nitrogen 7.3 mg/dL (9.0-27.0); Calcium 8.9 mg/dL (8.7-10.3); Carbon Dioxide 19.7 mmol/L (21.6-31.8); Chloride 103 mmol/L (96-109); Glucose 51 mg/dL (70-110); Potassium 4.2 mmol/L (3.5-5.5); Sodium 141 mmol/L (135-145)
[2023-06-23] MEDS ORDERED: SODIUM CHLORIDE 0.65% NASAL SPRAY 44 ML BTL NASAL PRN (13:53)
[2023-06-23] MEDS ORDERED: QUEtiapine 50 MG TAB PO PRN ×2 (13:53→14:18)
--- NOTE | 2023-06-23 13:57 | P.PN ---
Subjective Patient is a 57-year-old female with a past medical history of hypertension, history of DVT, Rodwell atrial fibrillation on anticoagulation with Xarelto, history of left colostomy, anxiety/depression and prior history of smoking presents to ER due to alcohol intoxication. Patient is also complaining of nausea vomiting and abdominal discomfort. Patient states that last drink was yesterday evening and patient started having nausea and vomiting this morning. Patient felt very anxious and scared and called the ER. Denies any complaints of chest pain or shortness of breath. No leg swelling. No cough or sputum production. No fever no chills. Laboratory showed WBC 4.0 hemoglobin 10.6 and platelets 250 Sodium 142 potassium 4.4 chloride 106 bicarb is 24 BUN 7 and creatinine 0.51, liver enzymes not elevated. Lipase 158 Urinalysis is negative for infection Serum alcohol level is 438 06/23/2023 Patient was admitted with alcohol intoxication with vomiting related to her drinking LIQUOR, she comes because she vomited after she drank fifth of vodka. This morning patient still complaining from shakiness and tremor and anxiety secondary to alcohol withdrawal, her CIWA protocol score is 9 this morning. Patient remains on CIWA protocol Ativan when necessary also she is on thiamine. No nausea or vomiting this morning no abdominal pain or epigastric pain or tenderness. She was able to eat little bit only but reports normal bowel moveme nts She remains on IV fluids normal saline 75 mL/h Resume Xarelto, Protonix and monitor hemoglobin closely as well as vitals Active Medications Generic Name Dose Route Start Last Admin Trade Name Freq PRN Reason Stop Dose Admin Acetaminophen 650 mg 06/22/23 22:50 06/23/23 09:19 Acetaminophen Tab 325 Mg Tab PO 650 mg Q6HR PRN Administration Fever and/ or Pain Atorvastatin Calcium 20 mg 06/23/23 14:00 Atorvastatin 20 Mg Tab PO DIRECTED SOLEDAD Folic Acid 1 mg 06/23/23 14:00 Folic Acid 1 Mg Tab PO DIRECTED SOLEDAD Sodium Chloride 1,000 mls @ 75 mls/hr 06/22/23 15:15 06/23/23 09:20 Saline 0.9% IV 75 mls/hr .[id number] SOLEDAD Administration Lorazepam 0.5 mg 06/22/23 15:12 Lorazepam 0.5 Mg Tab PO Q4HR PRN [place] 4 To 5 Lorazepam 1 mg 06/22/23 15:12 Lorazepam 1 Mg Tab PO Q4HR PRN Ci[place] 6 To 7 Lorazepam 2 mg 06/22/23 15:12 Lorazepam 1 Mg Tab PO Q2HR PRN [place] 10 or greater Lorazepam 2 mg 06/22/23 15:12 06/23/23 12:49 Lorazepam 1 Mg Tab PO 2 mg Q3HR PRN Administration Ciwa 8 To 9 Lorazepam 2 mg 06/22/23 15:12 Lorazepam 2 Mg/Ml Inj IV 06/24/23 15:12 Q10M PRN CIWA 16 or higher Metoprolol Tartrate 50 mg 06/23/23 09:00 06/23/23 08:06 Metoprolol Tartrate 50 Mg Tab PO 50 mg BID [facility] Administration Multivitamins 1 each 06/24/23 09:00 Multivitamins, Thera 1 Each Tab PO DAILY [facility] Naloxone HCl 0.2 mg 06/22/23 15:11 Naloxone 0.4 Mg/Ml 1 Ml Vial IV Q2M PRN Opioid Reversal Pantoprazole Sodium 40 mg 06/23/23 14:00 Pantoprazole 40 Mg/10 Ml Vial IVP BID [facility] Quetiapine Fumarate 50 mg 06/23/23 13:53 Quetiapine 50 Mg Tab PO DIRECTED PRN Agitation or Acute Psychosis Rivaroxaban 20 mg 06/23/23 17:30 Rivaroxaban 20 Mg Tab PO W/SUPPER [facility] Protocol Sodium Chloride 2 spray 06/23/23 13:53 Sodium Chloride 0.65% Nasal [place] 44 Ml Btl NASAL QID PRN Allergy Symptoms Thiamine HCl 100 mg 06/23/23 09:00 06/23/23 08:06 Thiamine 100 Mg Tab PO 100 mg DAILY [facility] Administration Venlafaxine HCl 225 mg 06/24/23 09:00 Venlafaxine Hcl Er 75 Mg Cap PO DAILY [facility] Objective - Vital Signs Vital signs: Vital Signs Temp 97.9 F 06/23/23 07:55 Pulse 87 06/23/23 07:55 Resp 20 06/23/23 07:55 BP 162/90 06/23/23 07:55 Pulse Ox 94 L 06/23/23 07:55 FiO2 Intake & Output 06/22/23 06/23/23 06/23/23 18:59 06:59 18:59 Intake Total 240 Balance 240 Weight 99.79 kg Intake: Oral 240 Other: Voiding Method Toilet # Voids 2 - Exam -GENERAL: The patient is alert and oriented x3, not in any acute distress. Well developed, well nourished. Tremor related to alcohol withdrawal HEENT: Pupils are round and equally reacting to light. EOMI. No scleral icterus. No conjunctival pallor. Normocephalic, atraumatic. No pharyngeal erythema. No thyromegaly. CARDIOVASCULAR: S1 and S2 present. No murmurs, rubs, or gallops. PULMONARY: Chest is clear to auscultation, no wheezing , no crackles. ABDOMEN: Soft, nontender, nondistended, normoactive bowel sounds. No palpable organomegaly. MUSCULOSKELETAL: No joint swelling or deformity. EXTREMITIES: No cyanosis, clubbing, or pedal edema. NEUROLOGICAL: Gross neurological examination did not reveal any focal deficits. SKIN: No rashes. no petechiae. - Labs CBC & Chem 7: 06/23/23 06:31 06/23/23 06:31 Labs: Abnormal Lab Results - Last 24 Hours (Table) 06/22/23 06/22/23 06/22/23 Range/Units 13:38 13:38 16:45 RBC (4.10-5.20) X 10*6/uL Hgb 10.6 L (11.4-16.0) gm/dL Hct 33.5 L (34.0-46.0) % MCH (27.0-32.0) pg MCHC (32.0-37.0) d/dL RDW 16.3 H (11.5-15.5) % MPV (9.5-12.2) [place] Eosinophils # (0.04-0.35) X 10*3/uL Carbon Dioxide (21.6-31.8) mmol/L Anion Gap (4.00-12.00) mmol/L BUN (9.0-27.0) mg/dL Creatinine 0.51 L (0.52-1.04) mg/dL Glucose (70-110) mg/dL Urine Ketones Trace H (Negative) Serum Alcohol 438 H* mg/dL 06/23/23 06/23/23 Range/Units 06:31 06:31 RBC 3.62 L (4.10-5.20) X 10*6/uL Hgb 9.5 L (11.4-16.0) gm/dL Hct 31.4 L (34.0-46.0) % MCH 26.2 L (27.0-32.0) pg MCHC 30.3 L (32.0-37.0) d/dL RDW 16.7 H (11.5-15.5) % MPV 9.2 L (9.5-12.2) FL Eosinophils # 0.03 L (0.04-0.35) X 10*3/uL Carbon Dioxide 19.7 L (21.6-31.8) mmol/L Anion Gap 18.30 H (4.00-12.00) mmol/L BUN 7.3 L (9.0-27.0) mg/dL Creatinine 0.5 L (0.52-1.04) mg/dL Glucose 51 L (70-110) mg/dL Urine Ketones (Negative) Serum Alcohol mg/dL Assessment and Plan Assessment: Acute alcohol intoxication with level 438 Nausea vomiting and abdominal discomfort Paroxysmal atrial fibrillation on anticoagulation with Xarelto Normocytic hypochromic anemia Hypertension History of left lower extremity DVT History of concussions injury Heavy alcohol abuse Prior history of smoking Left colostomy bag care Anxiety/depression DVT prophylaxis patient is already on Eliquis. Plan: Acute alcohol intoxication with level 438 Nausea vomiting and abdominal discomfort h/o LEFT DVT x2 on anticoagulation with Xarelto Hypertension History of concussions injury Heavy alcohol abuse Prior history of smoking Left colostomy bag care Anxiety/depression DVT prophylaxis patient is already on Eliquis.
[2023-06-23] MEDS ORDERED: ATORVASTATIN 20 MG TAB PO SCH (14:00)
[2023-06-23] MEDS ORDERED: FOLIC ACID 1 MG TAB PO SCH (14:00)
[2023-06-23] MEDS: PANTOPRAZOLE 40 MG/10 ML VIAL IVP SCH ×2 (15:17→21:22)
[2023-06-23] MEDS: RIVAROXABAN 20 MG TAB PO SCH (17:46)
[2023-06-23] MEDS ORDERED: HEPARIN SODIUM,PORCINE 5,000 UNIT/ML 1 ML VIAL SQ SCH (21:00)
[2023-06-23] MEDS ORDERED: FAMOTIDINE 20 MG/2 ML VIAL IV SCH (21:00)
[2023-06-23] MEDS: ATORVASTATIN 20 MG TAB PO SCH (21:22)
[2023-06-24] MEDS: LORazepam 1 MG TAB PO PRN (05:50)
[2023-06-24] MEDS: SODIUM CHLORIDE 0.9% 1,000 ML IV SCH ×2 (05:50→18:17)
[2023-06-24 07:32] LABS: Basophils % (A) 1 %; Eosinophils # (A) 0.1 k/uL (0-0.7); Eosinophils % (A) 2 %; HCT 37.3 % (34.0-46.0); Hypochromasia Marked; Lymphocytes # (A) 1.1 k/uL (1.0-4.8); Lymphocytes % (A) 27 %; MCH 27.3 pg (25.0-35.0); MCHC 29.6 g/dL (31.0-37.0); MCV 92.2 fL (80.0-100.0); Monocytes # (A) 0.3 k/uL (0-1.0); Monocytes % (A) 7 %; Neutrophils # (A) 2.5 k/uL (1.3-7.7); Neutrophils % (A) 62 %; Platelet Count 208 k/uL (150-450); RBC 4.04 m/uL (3.80-5.40); RDW 15.9 % (11.5-15.5)
[2023-06-24] MEDS: VENLAFAXINE HCL ER 75 MG CAP PO SCH (09:28)
[2023-06-24] MEDS: METOPROLOL TARTRATE 50 MG TAB PO SCH ×2 (09:28→21:24)
[2023-06-24] MEDS: PANTOPRAZOLE 40 MG/10 ML VIAL IVP SCH ×2 (09:28→21:24)
[2023-06-24] MEDS: MULTIVITAMINS, THERA 1 EACH TAB PO SCH (09:28)
[2023-06-24] MEDS: THIAMINE 100 MG TAB PO SCH (09:28)
[2023-06-24] MEDS: FOLIC ACID 1 MG TAB PO SCH (09:29)
[2023-06-24] MEDS: ACETAMINOPHEN TAB 325 MG TAB PO PRN (09:30)
--- NOTE | 2023-06-24 10:37 | P.PN ---
Subjective Patient is a 57-year-old female with a past medical history of hypertension, history of DVT, Rodwell atrial fibrillation on anticoagulation with Xarelto, history of left colostomy, anxiety/depression and prior history of smoking presents to ER due to alcohol intoxication. Patient is also complaining of nausea vomiting and abdominal discomfort. Patient states that last drink was yesterday evening and patient started having nausea and vomiting this morning. Patient felt very anxious and scared and called the ER. Denies any complaints of chest pain or shortness of breath. No leg swelling. No cough or sputum production. No fever no chills. Laboratory showed WBC 4.0 hemoglobin 10.6 and platelets 250 Sodium 142 potassium 4.4 chloride 106 bicarb is 24 BUN 7 and creatinine 0.51, liver enzymes not elevated. Lipase 158 Urinalysis is negative for infection Serum alcohol level is 438 06/23/2023 Patient was admitted with alcohol intoxication with vomiting related to her drinking LIQUOR, she comes because she vomited after she drank fifth of vodka. This morning patient still complaining from shakiness and tremor and anxiety secondary to alcohol withdrawal, her CIWA protocol score is 9 this morning. Patient remains on CIWA protocol Ativan when necessary also she is on thiamine. No nausea or vomiting this morning no abdominal pain or epigastric pain or tenderness. She was able to eat little bit only but reports normal bowel moveme nts She remains on IV fluids normal saline 75 mL/h Resume Xarelto, Protonix and monitor hemoglobin closely as well as vitals 06/24/2023 Patient looks better today, less tremor, less withdrawal symptoms receiving Ativan 2 mg frequently, he got 1 dose this morning. Therefore going to start her on Librium 20 mg 3 times a day. And possibly she may be considered for discharge in 24-48 hours if she remains stable She complains from episodes of short-lived abdominal pain around the colostomy site in the left lower quadrant, colostomy back looks leaking and this area of redness suspicious for cellulitis in the right side of the colostomy about the size of half pounds. Patient is ALLERGIC to cephalexin and she is on Seroquel which limits the use of antibiotic therefore going to start clindamycin and consult infectious disease. Objective - Vital Signs Vital signs: Vital Signs Temp 98.3 F 06/24/23 07:35 Pulse 75 06/24/23 07:35 Resp 17 06/24/23 07:35 BP 141/90 06/24/23 07:35 Pulse Ox 97 06/24/23 07:35 FiO2 Intake & Output 06/23/23 06/24/23 06/24/23 18:59 06:59 18:59 Intake Total 1140 200 Output Total 4 Balance 1136 200 Intake: Intake, IV Titration 900 Amount Sodium Chloride 0.9% 1, 900 000 ml @ 75 mls/hr IV . [id number] [facility] Rx#:[id number] Oral 240 200 Output: Urine 4 Other: Voiding Method Toilet # Voids 1 # Bowel Movements 2 - Exam -GENERAL: The patient is alert and oriented x3, not in any acute distress. Well developed, well nourished. Tremor related to alcohol withdrawal HEENT: Pupils are round and equally reacting to light. EOMI. No scleral icterus. No conjunctival pallor. Normocephalic, atraumatic. No pharyngeal erythema. No thyromegaly. CARDIOVASCULAR: S1 and S2 present. No murmurs, rubs, or gallops. PULMONARY: Chest is clear to auscultation, no wheezing , no crackles. -ABDOMEN: Soft, nontender, nondistended, normoactive bowel sounds. No palpable organomegaly. LLQ colostomy back in a Place with light brown soft stool (normal for the patient as she confirms) with area of cellulitis and redness spreading from the right side of the colostomy back. No purulent discharge, no open wound. MUSCULOSKELETAL: No joint swelling or deformity. EXTREMITIES: No cyanosis, clubbing, or pedal edema. NEUROLOGICAL: Gross neurological examination did not reveal any focal deficits. SKIN: No rashes. no petechiae. - Labs CBC & Chem 7: 06/24/23 06:25 06/23/23 06:31 Labs: Abnormal Lab Results - Last 24 Hours (Table) 06/23/23 06/23/23 06/24/23 Range/Units 06:31 06:31 06:25 RBC 3.62 L (4.10-5.20) X 10*6/uL Hgb 9.5 L 11.0 L (12.0-15.0) d/dL Hct 31.4 L (37.2-46.3) % MCH 26.2 L (27.0-32.0) pg MCHC 30.3 L 29.6 L (32.0-37.0) d/dL RDW 16.7 H 15.9 H (11.5-14.5) % MPV 9.2 L (9.5-12.2) FL Eosinophils # 0.03 L (0.04-0.35) X 10*3/uL Carbon Dioxide 19.7 L (21.6-31.8) mmol/L Anion Gap 18.30 H (4.00-12.00) mmol/L BUN 7.3 L (9.0-27.0) mg/dL Creatinine 0.5 L (0.6-1.5) mg/dL Glucose 51 L (70-110) mg/dL Assessment and Plan Assessment: Acute alcohol intoxication with level 438 abdominal wall cellulitis around the colostomy bag Nausea vomiting and abdominal discomfort Paroxysmal atrial fibrillation on anticoagulation with Xarelto Normocytic hypochromic anemia Hypertension History of left lower extremity DVT History of concussions injury Heavy alcohol abuse Prior history of smoking Left colostomy bag care Anxiety/depression DVT prophylaxis patient is already on Eliquis. Plan: Continue with CIWA protocol Start Librium Patient is improving and may consider for discharge soon in 24-48 hours Start clindamycin and infectious disease consult Labs and medication were reviewed.. Continue same treatment. Continue with symptomatic treatment. Resume home medication. Monitor labs and vitals. DVT and GI prophylaxis. Further recommendations as per clinical course of the patient DVT prophylaxis: xarelto GI Prophylaxis: Ppi Prognosis is guarded
[2023-06-24] MEDS: CLINDAMYCIN 300 MG in DEXTROSE 5% IN WATER 50 ML IVPB SCH ×4 (11:28→18:16)
[2023-06-24 11:30] LABS: Magnesium 1.9 mg/dL (1.5-2.4)
[2023-06-24 12:16] LABS: Blood Urea Nitrogen 6.3 mg/dL (9.0-27.0); Calcium 9.7 mg/dL (8.7-10.3); Carbon Dioxide 26.2 mmol/L (21.6-31.8); Chloride 101 mmol/L (96-109); Glucose 112 mg/dL (70-110); Potassium 4.1 mmol/L (3.5-5.5); Sodium 139 mmol/L (135-145)
[2023-06-24] MEDS: RIVAROXABAN 20 MG TAB PO SCH (18:16)
[2023-06-24 19:59] VITALS: RESP 18
[2023-06-24] MEDS: ATORVASTATIN 20 MG TAB PO SCH (21:24)
--- NOTE | 2023-06-25 00:16 | P.CONS ---
History of Present Illness - Reason for Consult Consult date: 06/24/23 Cellulitis of abdominal wall Requesting physician: Georges E Sheet - Chief Complaint Abdominal pain and redness x few days - History of Present Illness Patient is a 66-year-old female with a past medical history significant for perforated diverticulitis requiring laparotomy and diverting colostomy surgery was done at [facility] did have a recent ad mission to the hospital for alcoholism presenting to the hospital for evaluation of nausea vomiting abdominal discomfort patient was complaining of pain and swelling close to the colostomy site with some erythema describing the pain to be sharp in nature intensity was 6-7 out of 10 radiation mention did have some bloodstained drainage but no purulence patient is currently in the hospital for the last 3 days and is being treated with clindamycin and apparently did have some improvement in the redness infectious he was consulted for further management of antibiotic therapy patient on presentation to the hospital was afebrile and no fever [place] subsequently patient did have a normal white count kidney function was normal liver exams are normal urine was negative alcohol level was 438 Review of Systems Positive point and negatives has been mentioned in the HPI, complete review of systems was performed and all other systems are negative Past Medical History Past Medical History: Deep Vein Thrombosis (DVT), Hypertension Additional Past Medical History / Comment(s): concussion History of Any Multi-Drug Resistant Organisms: None Reported Past Surgical History: No Surgical Hx Reported Additional Past Surgical History / Comment(s): jaw surgery, colostomy 01/2023 Past Anesthesia/Blood Transfusion Reactions: No Reported Reaction Past Psychological History: Anxiety, Depression Smoking Status: Former smoker Past Alcohol Use History: Abuse, Daily, Heavy Additional Past Alcohol Use History / Comment(s): states she drinks 4 beers daily, no other alcoholic beverages Past Drug Use History: None Reported - Past Family History Father Additional Family Medical History / Comment(s): Spleen CA Mother Family Medical History: COPD Additional Family Medical History / Comment(s): empysema Medications and Allergies Home Medications Medication Instructions Recorded Confirmed Type Multivitamins, Thera [Multivitamin 1 tab PO DAILY 04/19/22 06/22/23 History (formulary)] Atorvastatin [Lipitor] 20 mg PO HS 11/23/22 06/23/23 History Furosemide [Lasix] 40 mg PO DAILY 11/23/22 06/23/23 History Sodium Chloride 0.65% Nasal [Deep 2 spr EA NOSTRIL QID PRN 11/23/22 06/22/23 History Sea (Saline)] Thiamine [Vitamin B-1] 100 mg PO DAILY 11/23/22 06/23/23 History Pantoprazole Sodium [Protonix] 20 mg PO DAILY 01/28/23 06/23/23 History Acetaminophen Tab [Tylenol] 650 mg PO Q6HR PRN tab 03/23/23 06/22/23 Rx Venlafaxine HCl [Effexor XR] 225 mg PO DAILY 04/26/23 06/22/23 History traZODone HCL [Desyrel] 200 mg PO HS PRN 04/26/23 06/22/23 History Metoprolol Tartrate [Lopressor] 50 mg PO BID #60 tab 05/03/23 06/22/23 Rx Folic Acid 1 mg PO DAILY 06/22/23 06/23/23 History QUEtiapine [SEROquel] 50 mg PO HS PRN 06/22/23 06/23/23 History Rivaroxaban [Xarelto] 20 mg PO DAILY 06/22/23 06/23/23 History Doxycycline [Vibramycin] 100 mg PO BID 5 Days #10 capsule 06/25/23 Rx chlordiazePOXIDE HCl [Librium] 20 mg PO HS #2 cap 06/25/23 Rx Allergies Allergy/AdvReac Type Severity Reaction Status Date / Time bacitracin Allergy Rash/Hives Verified 05/28/23 19:48 cephalexin [From Keflex] Allergy Itching Verified 05/28/23 19:48 Physical Exam Vitals: Vital Signs Temp Pulse Resp BP Pulse Ox 06/24/23 07:35 98.3 F 75 17 141/90 97 06/24/23 01:52 98.2 F 74 18 156/90 97 06/23/23 20:00 18 06/23/23 19:22 98.8 F 101 H 18 176/50 96 06/23/23 12:30 98.8 F 86 16 164/103 96 Intake and Output 06/23/23 06/24/23 06/24/23 22:59 06:59 14:59 Intake Total 1100 Output Total 4 Balance 1096 Intake: Intake, IV Titration 900 Amount Sodium Chloride 0.9% 1, 900 000 ml @ 75 mls/hr IV . [id number] [facility] Rx#:[id number] Oral 200 Output: Urine 4 Other: Voiding Method Toilet # Voids 1 # Bowel Movements 2 GENERAL DESCRIPTION: Middle-aged female lying in bed, no distress. No tachypnea or accessory muscle of respiration use. HEENT: Shows Pallor , no scleral icterus. Oral mucous membrane is dry. No pharyngeal erythema or thrush NECK: Trachea central, no thyromegaly. LUNGS: Unlabored breathing. Clear to auscultation anteriorly. No wheeze or crackle. HEART: S1, S2, regular rate and rhythm. No loud murmur ABDOMEN: Soft, lower abdominal wall swelling and redness no significant tenderness EXTREMITIES: No edema of feet. SKIN: No rash, no masses palpable. NEUROLOGICAL: The patient is awake, alert, oriented x3, mood and affect normal. Results CBC & Chem 7: 06/24/23 06:25 06/24/23 06:25 Labs: Abnormal Lab Results - Last 24 Hours (Table) 06/24/23 Range/Units 06:25 Hgb 11.0 L (11.4-16.0) gm/dL MCHC 29.6 L (31.0-37.0) g/dL RDW 15.9 H (11.5-15.5) % Assessment and Plan (1) Abdominal wall cellulitis Status: Acute Code(s): L03.311 - CELLULITIS OF ABDOMINAL WALL SNOMED Code(s): 78326287 (2) Allergy to cephalosporin Status: Acute Code(s): Z88.1 - ALLERGY STATUS TO OTHER ANTIBIOTIC AGENTS SNOMED Code(s): 051070817 Plan: 1patient with abdominal wall cellulitis close to her colostomy site overall improvement on clindamycin likely secondary to the gram-positive skin zahida no evidence of any abscess clinically 2-patient with cephalexin allergy that will limit the number of antibiotics safe to use 3-continue with the clindamycin while inpatient and can be transition to a short course of oral doxycycline on discharge We will follow on clinical condition and cultures to further adjust medication if needed Thank you for this consultation we will follow the patient along with you Dictation was produced using [employer] dictation software. please excuse any grammatical, word or spelling errors. Time with Patient: Greater than 30
[2023-06-25] MEDS: CLINDAMYCIN 300 MG in DEXTROSE 5% IN WATER 50 ML IVPB SCH ×2 (03:15)
[2023-06-25] MEDS: SODIUM CHLORIDE 0.9% 1,000 ML IV SCH (08:31)
[2023-06-25] MEDS: METOPROLOL TARTRATE 50 MG TAB PO SCH (08:32)
[2023-06-25] MEDS: VENLAFAXINE HCL ER 75 MG CAP PO SCH (08:32)
[2023-06-25] MEDS: FOLIC ACID 1 MG TAB PO SCH (08:32)
[2023-06-25] MEDS: MULTIVITAMINS, THERA 1 EACH TAB PO SCH (08:32)
[2023-06-25] MEDS: THIAMINE 100 MG TAB PO SCH (08:32)
[2023-06-25] MEDS: PANTOPRAZOLE 40 MG/10 ML VIAL IVP SCH (08:33)
[2023-06-25 08:36] VITALS: BP 156/54; PULSE 79; TEMP 98.9
[2023-06-25] MEDS ORDERED: PANTOPRAZOLE 40 MG TABLET PO SCH (17:30)
--- NOTE | 2023-06-25 22:54 | P.DS ---
Providers Date of admission: 06/22/23 16:46 Attending physician: Gladys Persaud Consults: 06/24/23 10:32 Consult Physician Urgent Consulting Provider: Sanchez Harrison Consult Reason/Comments: cellulitis of abd pain Do you want consulting provider notified?: Yes Primary care physician: Constantine Figueroa [facility] Course: Diagnoses: Acute alcohol intoxication with level 438 the presentation Alcohol withdrawal improved and resolved upon discharge abdominal wall cellulitis around the colostomy bag, improved with antibiotic Nausea vomiting and abdominal discomfort, secondary to above improved Paroxysmal atrial fibrillation on anticoagulation with Xarelto Normocytic hypochromic anemia Hypertension History of left lower extremity DVT on blood thinner History of concussions injury Heavy alcohol abuse Prior history of smoking Left colostomy bag care Anxiety/depression Hospital course: Patient is a 57-year-old female with a past medical history of hypertension, history of DVT, Rodwell atrial fibrillation on anticoagulation with Xarelto, history of left colostomy, anxiety/depression and prior history of smoking presents to ER due to alcohol intoxication. Patient is also complaining of nausea vomiting and abdominal discomfort. Patient states that last drink was yesterday evening and patient started having nausea and vomiting this morning. Patient felt very anxious and scared and called the ER. Patient underwent alcohol withdrawal and she was treated with CIWA protocol and thiamine and after with Librium and she showed improvement, no alcohol withdrawal symptoms since yesterday. Today she does not need any extra doses of benzodiazepine. And she will be discharged on tapered. With 2 doses today at 1 dose tomorrow and the patient can be stopped. Patient confirmed to me she is alert. Drinking alcohol. She had mild abdominal cellulitis around the colostomy back in the left lower quadrant, just treated with clindamycin and be discharged on doxycycline x 5 days Problems and management plan were discussed with the patient and he verbalized understanding and acceptance Patient was found stable and can be discharged home in guarded prognosis however he needs follow-up as an outpatient. Patient was instructed to follow up with PCP Dr. Figueroa within one week and patient agrees Physical exam Gen: patient is a AAOx3, no distress CVS: S1-S2, RRR, no murmur Lungs: B/L CTA, no wheezing -Abdomen: soft, no distention, no tenderness, positive bowel sounds. Left lower quadrant colostomy back with light brown stool (usual consistency) with improvement mild cellulitis around the back Extremity: no leg edema or induration Time spent more than 35 minutes Plan - Discharge Summary Discharge Rx Participant: No New Discharge Prescriptions: New Doxycycline [Vibramycin] 100 mg PO BID 5 Days #10 capsule chlordiazePOXIDE HCl [Librium] 20 mg PO HS #2 cap Continue Multivitamins, Thera [Multivitamin (formulary)] 1 tab PO DAILY Furosemide [Lasix] 40 mg PO DAILY Pantoprazole Sodium [Protonix] 20 mg PO DAILY traZODone HCL [Desyrel] 200 mg PO HS PRN PRN Reason: Insomnia Metoprolol Tartrate [Lopressor] 50 mg PO BID #60 tab Folic Acid 1 mg PO DAILY Thiamine [Vitamin B-1] 100 mg PO DAILY Sodium Chloride 0.65% Nasal [Deep Sea (Saline)] 2 spr EA NOSTRIL QID PRN PRN Reason: Allergy Symptoms Atorvastatin [Lipitor] 20 mg PO HS Acetaminophen Tab [Tylenol] 650 mg PO Q6HR PRN tab PRN Reason: Fever And/ Or Pain Venlafaxine HCl [Effexor XR] 225 mg PO DAILY Rivaroxaban [Xarelto] 20 mg PO DAILY QUEtiapine [SEROquel] 50 mg PO HS PRN PRN Reason: Agitation Or Acute Psychosis Discharge Medication List Multivitamins, Thera [Multivitamin (formulary)] 1 tab PO DAILY 04/19/22 [History] Atorvastatin [Lipitor] 20 mg PO HS 11/23/22 [History] Furosemide [Lasix] 40 mg PO DAILY 11/23/22 [History] Sodium Chloride 0.65% Nasal [Deep Sea (Saline)] 2 spr EA NOSTRIL QID PRN 11/23/22 [History] Thiamine [Vitamin B-1] 100 mg PO DAILY 11/23/22 [History] Pantoprazole Sodium [Protonix] 20 mg PO DAILY 01/28/23 [History] Acetaminophen Tab [Tylenol] 650 mg PO Q6HR PRN tab 03/23/23 [Rx] Venlafaxine HCl [Effexor XR] 225 mg PO DAILY 04/26/23 [History] traZODone HCL [Desyrel] 200 mg PO HS PRN 04/26/23 [History] Metoprolol Tartrate [Lopressor] 50 mg PO BID #60 tab 05/03/23 [Rx] Folic Acid 1 mg PO DAILY 06/22/23 [History] QUEtiapine [SEROquel] 50 mg PO HS PRN 06/22/23 [History] Rivaroxaban [Xarelto] 20 mg PO DAILY 06/22/23 [History] Doxycycline [Vibramycin] 100 mg PO BID 5 Days #10 capsule 06/25/23 [Rx] chlordiazePOXIDE HCl [Librium] 20 mg PO HS #2 cap 06/25/23 [Rx] Follow up Appointment(s)/Referral(s): Constantine Figueroa DO [Primary Care Provider] - 1-2 days Discharge/Stand Alone Forms: AA Meetings Dist [address] - [facility], Outpatient Counseling, Inp Substance Abuse Facilities Discharge Disposition: HOME SELF-CARE
--- NOTE | 2023-07-02 13:16 | P.PN ---
Subjective Progress Note Date: 06/25/23 Principal diagnosis: Abdominal wall cellulitis Patient is a 66-year-old female with a past medical history significant for perforated diverticulitis requiring laparotomy and diverting colostomy surgery was done at [facility] did have a recent admission to the hospital for alcoholism presenting to the hospital for evaluation of nausea vomiting abdominal discomfort and patient was noticed to have abdominal wall cellulitis. On today's evaluation that is 06/25/2023, the patient remains to be afebrile the patient is breathing comfortably on room air, the patient denies chest pain, shortness of breath or cough, patient denies nausea/vomiting , no diarrhea and abdominal wall swelling and redness has decreased in intensity. Patient did have a white count of 4.0 and a creatinine of 0.6 as of yesterday no lab draw today Objective - Vital Signs Vital signs: Vital Signs Temp 98.9 F 06/25/23 07:30 Pulse 79 06/25/23 07:30 Resp 18 06/25/23 07:30 BP 156/54 06/25/23 07:30 Pulse Ox 95 06/25/23 07:30 FiO2 Intake & Output 06/24/23 06/25/23 06/25/23 18:59 06:59 18:59 Other: Voiding Method Toilet # Voids 1 1 - Exam GENERAL DESCRIPTION: Middle-aged female lying in bed in no distress RESPIRATORY SYSTEM: Unlabored breathing , decreased breath sounds at bases HEART: S1 S2 regular rate and rhythm , ABDOMEN: Soft , abdominal wall redness has decreased, no tenderness EXTREMITIES: No edema feet - Labs CBC & Chem 7: 06/24/23 06:25 06/24/23 06:25 Assessment and Plan (1) Abdominal wall cellulitis Status: Acute Code(s): L03.311 - CELLULITIS OF ABDOMINAL WALL SNOMED Code(s): 85582339 (2) Allergy to cephalosporin Status: Acute Code(s): Z88.1 - ALLERGY STATUS TO OTHER ANTIBIOTIC AGENTS SNOMED Code(s): 225509912 Plan: 1patient with abdominal wall cellulitis close to her colostomy site overall improvement on clindamycin likely secondary to the gram-positive skin zahida no evidence of any abscess clinically 2-patient with cephalexin allergy that will limit the number of antibiotics safe to use Patient seemed to have shown clinical improvement and will finish therapy with short course of oral doxycycline and close out Patient follow-up discuss with admitting team working on discharge Dictation was produced using [employer] software. please excuse any grammatical, word or spelling errors. Time with Patient: Less than 30
== END 2023-06-25 13:19 | disposition home or self-care (01) ==
LOC: EC 12:52 → 5NMEDONC 16:46
PROVIDERS: ADMIT Internal Medicine; ATTEND Internal Medicine
DX: F10.229 Alcohol dependence with intoxication, unspecified (principal); F10.239 Alcohol dependence with withdrawal, unspecified; F06.4 Anxiety disorder due to known physiological condition; K94.03 Colostomy malfunction; L03.311 Cellulitis of abdominal wall; I48.0 Paroxysmal atrial fibrillation; I10 Essential (primary) hypertension; F32.A Depression, unspecified; Y90.8 Blood alcohol level of 240 mg/100 ml or more; D50.9 Iron deficiency anemia, unspecified; Z79.01 Long term (current) use of anticoagulants; Z79.899 Other long term (current) drug therapy; Z88.1 Allergy status to other antibiotic agents; Z86.718 Personal history of other venous thrombosis and embolism; Z87.820 Personal history of traumatic brain injury; Z87.19 Personal history of other diseases of the digestive system; Z87.891 Personal history of nicotine dependence; Z98.890 Other specified postprocedural states; Z82.5 Family history of asthma and other chronic lower respiratory diseases; Z80.8 Family history of malignant neoplasm of other organs or systems
CPT/HCPCS: 96376 ×3; 96361 ×5; 96365; 96375 ×2; 99285; 36415; 93005; 80053; 80048 ×2; 83690; 83735; 85025 ×3; 81003; G0378 ×4; G0480; J2405; C9113 ×3; J1790; J0736 ×2; 80320

== ENCOUNTER 2023-07-05 18:07 | Observation (INO) | payer OTHER ==
--- NOTE | 2023-07-05 19:48 | ED ---
General Adult HPI - General Chief complaint: Abdominal Pain Stated complaint: Infection Time Seen by Provider: 07/05/23 18:54 Source: patient Mode of arrival: ambulatory Limitations: no limitations - History of Present Illness Initial comments: This patient is a 58-year-old woman who presents to have evaluation related to small amount of blood from her ostomy. The patient states that she has had a little bit of cramping going back a few days now. Today she noticed a little bit of pinkish discharge and thought she saw a spot on ostomy that was bleeding. She was concerned because she does take Xarelto. She has not had any hematemesis she did vomit once at home. No fever or chills. No change in urination. -: hour(s) Location: abdomen Radiation: non-radiation Quality: dull Consistency: constant Improves with: none Worsens with: none Associated Symptoms: other (Ostomy bleeding) Treatments Prior to Arrival: none - Related Data Home Medications Medication Instructions Recorded Confirmed Multivitamins, Thera [Multivitamin 1 tab PO DAILY 04/19/22 07/05/23 (formulary)] Atorvastatin [Lipitor] 20 mg PO HS 11/23/22 07/05/23 Furosemide [Lasix] 40 mg PO DAILY 11/23/22 07/05/23 Sodium Chloride 0.65% Nasal [Deep 2 spr EA NOSTRIL QID PRN 11/23/22 07/05/23 Sea (Saline)] Thiamine [Vitamin B-1] 100 mg PO DAILY 11/23/22 07/05/23 Pantoprazole Sodium [Protonix] 20 mg PO DAILY 01/28/23 07/05/23 Venlafaxine HCl [Effexor XR] 225 mg PO DAILY 04/26/23 07/05/23 traZODone HCL [Desyrel] 200 mg PO HS PRN 04/26/23 07/05/23 Folic Acid 1 mg PO DAILY 06/22/23 07/05/23 QUEtiapine [SEROquel] 50 mg PO HS PRN 06/22/23 07/05/23 Rivaroxaban [Xarelto] 20 mg PO DAILY 06/22/23 07/05/23 Doxycycline [Vibramycin] 100 mg PO DIRECTED 07/05/23 07/05/23 chlordiazePOXIDE HCl [Librium] 20 mg PO DIRECTED 07/05/23 07/05/23 Previous Rx's Medication Instructions Recorded Acetaminophen Tab [Tylenol] 650 mg PO Q6HR PRN tab 03/23/23 Metoprolol Tartrate [Lopressor] 50 mg PO BID #60 tab 05/03/23 Allergies Allergy/AdvReac Type Severity Reaction Status Date / Time bacitracin Allergy Rash/Hives Verified 07/05/23 22:13 cephalexin [From Keflex] Allergy Itching Verified 07/05/23 22:13 Review of Systems ROS Statement: Those systems with pertinent positive or pertinent negative responses have been documented in the HPI. ROS Other: All systems not noted in ROS Statement are negative. Past Medical History Past Medical History: Deep Vein Thrombosis (DVT), Hypertension Additional Past Medical History / Comment(s): concussion History of Any Multi-Drug Resistant Organisms: None Reported Past Surgical History: No Surgical Hx Reported Additional Past Surgical History / Comment(s): jaw surgery, colostomy 01/2023 Past Anesthesia/Blood Transfusion Reactions: No Reported Reaction Past Psychological History: Anxiety, Depression Smoking Status: Former smoker Past Alcohol Use History: Abuse, Daily, Heavy Past Drug Use History: None Reported - Past Family History Father Additional Family Medical History / Comment(s): Spleen CA Mother Family Medical History: COPD Additional Family Medical History / Comment(s): empysema General Exam Limitations: no limitations General appearance: alert, in no apparent distress Head exam: Present: atraumatic, normocephalic Eye exam: Present: normal appearance Neck exam: Present: normal inspection Respiratory exam: Present: normal lung sounds bilaterally. Absent: respiratory distress, wheezes, rales, rhonchi, stridor Cardiovascular Exam: Present: regular rate, normal rhythm, normal heart sounds. Absent: systolic murmur, diastolic murmur, rubs, gallop GI/Abdominal exam: Present: soft, other (Left Sided ostomy, that is appear to be trace of bleeding from the mucosa on the inferior aspect of the ostomy site). Absent: distended, tenderness, guarding, rebound, rigid, mass Extremities exam: Present: normal inspection, normal capillary refill. Absent: pedal edema, calf tenderness Back exam: Present: normal inspection. Absent: CVA tenderness (R), CVA tenderness (L) Neurological exam: Present: alert Skin exam: Present: warm, dry, intact, normal color. Absent: rash Course Vital Signs 07/05/23 07/05/23 07/05/23 18:23 21:42 22:39 Temperature 98.6 F Pulse Rate 100 93 Respiratory 18 19 19 Rate Blood Pressure 130/77 176/111 146/98 O2 Sat by Pulse 96 95 Oximetry 07/05/23 07/06/23 22:46 02:57 Temperature 98.0 F Pulse Rate 72 Respiratory 18 Rate Blood Pressure 146/98 151/102 O2 Sat by Pulse 97 Oximetry Medical Decision Making - Medical Decision Making This patient is 58-year-old woman here with abdominal pain. Bleeding into her ostomy bag. The patient did have some small areas of bleeding which were cauterized with silver nitrate in 2 punctate areas. There is some skin breakdown at the ostomy and the patient will be admitted to observation related to the abdominal pain and also to have the ostomy care nurse evaluate the ostomy site. - Lab Data Result diagrams: 07/05/23 19:37 07/05/23 19:37 Lab Results 07/05/23 07/05/23 07/05/23 Range/Units 19:37 19:37 19:37 WBC 5.2 (3.8-10.6) k/uL RBC 3.80 (3.80-5.40) m/uL Hgb 10.6 L (11.4-16.0) gm/dL Hct 32.6 L (34.0-46.0) % MCV 86.0 D (80.0-100.0) fL MCH 27.9 (25.0-35.0) pg MCHC 32.4 (31.0-37.0) g/dL RDW 16.4 H (11.5-15.5) % Plt Count 148 L (150-450) k/uL MPV 8.1 Neutrophils % 67 % Lymphocytes % 20 % Monocytes % 9 % Eosinophils % 1 % Basophils % 0 % Neutrophils # 3.5 (1.3-7.7) k/uL Lymphocytes # 1.1 (1.0-4.8) k/uL Monocytes # 0.5 (0-1.0) k/uL Eosinophils # 0.1 (0-0.7) k/uL Basophils # 0.0 (0-0.2) k/uL Hypochromasia Slight Anisocytosis Slight PT 12.6 H (10.0-12.5) sec INR 1.2 H (<1.2) APTT 23.9 (22.0-30.0) sec Sodium 131 L (137-145) mmol/L Potassium 3.8 (3.5-5.1) mmol/L Chloride 95 L (98-107) mmol/L Carbon Dioxide 23 (22-30) mmol/L Anion Gap 13 mmol/L BUN 9 (7-17) mg/dL Creatinine 0.72 (0.52-1.04) mg/dL Est GFR (CKD-EPI)AfAm >90 (>60 ml/min/1.73 sqM) Est GFR (CKD-EPI)NonAf >90 (>60 ml/min/1.73 sqM) Glucose 118 H (74-99) mg/dL Plasma Lactic Acid Antoine (0.7-2.0) mmol/L Calcium 9.7 (8.4-10.2) mg/dL Total Bilirubin 1.0 (0.2-1.3) mg/dL AST 32 (14-36) U/L ALT 20 (4-34) U/L Alkaline Phosphatase 54 (38-126) U/L Troponin I (0.000-0.034) ng/mL Total Protein 7.3 (6.3-8.2) g/dL Albumin 4.4 (3.5-5.0) g/dL 07/05/23 07/05/23 Range/Units 19:37 19:37 WBC (3.8-10.6) k/uL RBC (3.80-5.40) m/uL Hgb (11.4-16.0) gm/dL Hct (34.0-46.0) % MCV (80.0-100.0) fL MCH (25.0-35.0) pg MCHC (31.0-37.0) g/dL RDW (11.5-15.5) % Plt Count (150-450) k/uL MPV Neutrophils % % Lymphocytes % % Monocytes % % Eosinophils % % Basophils % % Neutrophils # (1.3-7.7) k/uL Lymphocytes # (1.0-4.8) k/uL Monocytes # (0-1.0) k/uL Eosinophils # (0-0.7) k/uL Basophils # (0-0.2) k/uL Hypochromasia Anisocytosis PT (10.0-12.5) sec INR (<1.2) APTT (22.0-30.0) sec Sodium (137-145) mmol/L Potassium (3.5-5.1) mmol/L Chloride (98-107) mmol/L Carbon Dioxide (22-30) mmol/L Anion Gap mmol/L BUN (7-17) mg/dL Creatinine (0.52-1.04) mg/dL Est GFR (CKD-EPI)AfAm (>60 ml/min/1.73 sqM) Est GFR (CKD-EPI)NonAf (>60 ml/min/1.73 sqM) Glucose (74-99) mg/dL Plasma Lactic Acid Antoine 1.2 (0.7-2.0) mmol/L Calcium (8.4-10.2) mg/dL Total Bilirubin (0.2-1.3) mg/dL AST (14-36) U/L ALT (4-34) U/L Alkaline Phosphatase (38-126) U/L Troponin I <0.012 (0.000-0.034) ng/mL Total Protein (6.3-8.2) g/dL Albumin (3.5-5.0) g/dL Disposition Clinical Impression: Abdominal pain, GI bleeding Disposition: ADMITTED IP TO THIS [facility] Condition: Good
[2023-07-05 20:00] LABS: Anisocytosis Slight; Basophils % (A) 0 %; Eosinophils # (A) 0.1 k/uL (0-0.7); Eosinophils % (A) 1 %; HCT 32.6 % (34.0-46.0); HGB 10.6 gm/dL (11.4-16.0); Hypochromasia Slight; Lymphocytes # (A) 1.1 k/uL (1.0-4.8); Lymphocytes % (A) 20 %; MCH 27.9 pg (25.0-35.0); MCHC 32.4 g/dL (31.0-37.0); Mean Platelet Volume 8.1; Monocytes # (A) 0.5 k/uL (0-1.0); Monocytes % (A) 9 %; Neutrophils # (A) 3.5 k/uL (1.3-7.7); Neutrophils % (A) 67 %; Platelet Count 148 k/uL (150-450); RDW 16.4 % (11.5-15.5); WBC 5.2 k/uL (3.8-10.6)
--- NOTE | 2023-07-05 20:00 | XR ---
EXAMINATION TYPE: XR KUB DATE OF EXAM: 07/05/2023 7:43 PM CLINICAL INDICATION:Female, 58 years old with history of abdominal pain; [facility] COMPARISON: CT 04/26/2023 TECHNIQUE: One radiographic view of the abdomen was obtained. FINDINGS: The bowel gas pattern is nonspecific without dilated loops of small or large bowel. There i s no evidence for organomegaly or pneumoperitoneum. The osseous structures are intact. No abnormal calcifications are present. Fecal material and gas are demonstrated throughout the colon and rectum. Suspected heterotropic ossification near the right intertrochanteric region of the femur as seen on prior CT. IMPRESSION: Nonspecific bowel gas pattern without radiographic evidence for acute process.
[2023-07-05 20:11] LABS: INR 1.2 (<1.2); Partial Thromboplastin Time 23.9 sec (22.0-30.0); Prothrombin Time 12.6 sec (10.0-12.5)
[2023-07-05 20:29] LABS: ALT 20 U/L (4-34); AST 32 U/L (14-36); African American GFR (CKD) >90 (>60 ml/min/1.73 sqM); Albumin 4.4 g/dL (3.5-5.0); Alkaline Phosphatase 54 U/L (38-126); Anion Gap 13 mmol/L; Blood Urea Nitrogen 9 mg/dL (7-17); Calcium 9.7 mg/dL (8.4-10.2); Carbon Dioxide 23 mmol/L (22-30); Chloride 95 mmol/L (98-107); Glucose 118 mg/dL (74-99); Non-African American GFR(CKD) >90 (>60 ml/min/1.73 sqM); Potassium 3.8 mmol/L (3.5-5.1); Sodium 131 mmol/L (137-145); Total Protein 7.3 g/dL (6.3-8.2)
[2023-07-05] MEDS ORDERED: MORPHINE SULFATE 4 MG/ML SYRINGE IV STA (21:25)
[2023-07-05] MEDS ORDERED: NALOXONE 0.4 MG/ML 1 ML VIAL IV PRN (22:32)
[2023-07-05] MEDS ORDERED: ONDANSETRON 4 MG/2 ML VIAL IVP PRN (22:32)
[2023-07-05] MEDS ORDERED: ACETAMINOPHEN TAB 325 MG TAB PO PRN (22:32)
[2023-07-05] MEDS: SODIUM CHLORIDE 0.9% 1,000 ML IV SCH (22:37)
[2023-07-05] MEDS ORDERED: traZODone HCL 100 MG TAB PO PRN (23:08)
[2023-07-05] MEDS ORDERED: QUEtiapine 50 MG TAB PO PRN (23:08)
[2023-07-05] MEDS: ATORVASTATIN 20 MG TAB PO SCH (23:25)
[2023-07-05] MEDS: GABAPENTIN 300 MG CAP PO SCH (23:25)
[2023-07-06] MEDS: VENLAFAXINE HCL ER 75 MG CAP PO SCH (08:03)
[2023-07-06] MEDS: THIAMINE 100 MG TAB PO SCH (08:03)
[2023-07-06] MEDS: PANTOPRAZOLE 40 MG TABLET PO SCH (08:03)
[2023-07-06] MEDS: RIVAROXABAN 20 MG TAB PO SCH (08:03)
[2023-07-06] MEDS: GABAPENTIN 300 MG CAP PO SCH ×3 (08:03→20:20)
[2023-07-06] MEDS: FAMOTIDINE 20 MG TAB PO SCH ×2 (08:03→20:19)
[2023-07-06] MEDS: METOPROLOL TARTRATE 50 MG TAB PO SCH ×2 (08:03→20:20)
[2023-07-06] MEDS ORDERED: LORazepam 1 MG TAB PO PRN (11:43)
[2023-07-06] MEDS: SODIUM CHLORIDE 0.9% 1,000 ML IV SCH (12:33)
--- NOTE | 2023-07-06 12:41 | HP ---
HISTORY AND PHYSICAL CHIEF COMPLAINT: Bleeding from the ostomy site. HISTORY OF PRESENT ILLNESS: This is a 58-year-old woman with a past medical history of multiple medical problems including EtOH and as well as ostomy, who is complaining of small amount of fresh blood coming from the ostomy site. The patient came to [facility], hemoglobin was around 10, admitted for further evaluation. There is no history of any fever, rigor, or chills at this time. PAST MEDICAL HISTORY: Reviewed includes DVT and hypertension. Rest of the history and rest of the chart are also reviewed. HOME MEDICATIONS: Reviewed include: 1. Desyrel. 2. Protonix. 3. Xarelto. Doses and rest of the medications are reviewed. ALLERGIES: 1. Bacitracin. 2. Keflex. FAMILY HISTORY: COPD and spleen cancer. SOCIAL HISTORY: Heavy alcohol abuse. REVIEW OF SYSTEMS: Fourteen-point review is negative except as mentioned earlier. PHYSICAL EXAMINATION: VITAL SIGNS: Pulse 79, blood pressure 131/90, respirations 12. HEENT: Conjunctivae are normal. NECK: No jugular venous distention. CARDIOVASCULAR: S1 and S2. RESPIRATORY: Breath sounds diminished at the bases. ABDOMEN: Soft. Ostomy present, minimal amount of reddish tinge present. Nontender. No masses palpable. LEGS: No edema. NERVOUS SYSTEM: Nonfocal. Mild tremors present. SKIN: No ulcers or rashes. JOINTS: No active deforming arthropathy. LABORATORY DATA: Reviewed. ASSESSMENT: 1. Bleeding from the ostomy site. 2. Mild anemia. 3. History of deep venous thrombosis. 4. Hypertension. 5. Anxiety and depression. 6. History of EtOH. RECOMMENDATIONS AND DISCUSSION: In this 58-year-old woman presented with multiple complex medical issues, we will monitor the patient closely. I would recommend repeat labs, CT scan of the abdomen and pelvis, Surgical evaluation, and hematology/Oncology evaluation. Otherwise, also recommend [facility] protocol for alcohol withdrawals, and home medications will be resumed once after confirmation. Prognosis is guarded. Further recommendations to follow. MMODL / IJN: [id number] /
--- NOTE | 2023-07-06 13:58 | CT ---
EXAMINATION TYPE: CT abdomen pelvis wo con CT DLP: 995 mGycm, Automated exposure control for dose reduction was used. DATE OF EXAM: 07/06/2023 1:48 PM COMPARISON: CT abdomen pelvis most recent from 04/26/2013 CLINICAL INDICATION:Female, 58 years old with history of gi bleeding; GI bleed TECHNIQUE: Axial CT of the ;CT abdomen pelvis wo con;Sagittal and coronal reformats were created on a separate workstation. Contrast used: (none if empty) Oral contrast used: without Oral Contrast (none if empty) FINDINGS: LOWER CHEST: Probable intrafissural lymph nodes along the major fissure in the right middle lobe. ABDOMEN LIVER: Unremarkable GALLBLADDER AND BILE DUCTS: Distended with rectal wall thickening. No gallstones. No biliary dilation . PANCREAS: Unremarkable. SPLEEN: Unremarkable. ADRENAL GLANDS: Unremarkable. KIDNEYS AND URETERS: No evidence of hydronephrosis or renal calculus. The ureters are unremarkable. PELVIS BLADDER: Unremarkable REPRODUCTIVE: Unremarkable. ABDOMEN & PELVIS STOMACH AND BOWEL: No evidence of bowel obstruction. There is a left lower abdominal ostomy with smal l and large bowel within the loop compatible with parastomal hernia. Few scattered colonic diverticul a present including in the parastomal hernia: No evidence for gastrointestinal hemorrhage given this single phase noncontrast technique. PERITONEUM/RETROPERITONEUM: No evidence of pneumoperitoneum or free fluid. VASCULATURE: No evidence of aortic aneurysm. MUSCULOSKELETAL: No acute osseous abnormalities. Moderate disc degeneration changes are present throu ghout the thoracolumbar spine. Findings are as L4-L5 with disc space tearing disc vacuum phenomenon a nd disc bulge. LYMPH NODES: No gross evidence for lymphadenopathy. SOFT TISSUE/ABDOMINAL WALL: Unremarkable IMPRESSION: 1. Limited evaluation without proper GI bleed protocol technique. No evidence for gastrointestinal h emorrhage. No acute abdominal process. 2. 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
--- NOTE | 2023-07-06 14:47 | P.GSCN ---
History of Present Illness Consult date: 07/06/23 History of present illness: CHIEF COMPLAINT: Bleeding from ostomy HISTORY OF PRESENT ILLNESS: This is a 58-year-old female who presented to the ER with bleeding from her ostomy 2 days. She is on Xarelto for DVT. She had trauma to her bowel in January 2023 requiring colostomy placement by Dr. Vicente out of [facility]. Patient had 2 areas around her stoma cauterized with silver nitrate by ER physician. Patient also to be seen by ostomy liters. Blood thinners currently on hold. Patient denies any abdominal pain. Bleeding has resolved. Patient does have a history of daily alcohol use. Patient Xarelto was resumed. PAST MEDICAL HISTORY: See list. PAST SURGICAL HISTORY: See list. MEDICATIONS: See list. ALLERGIES: See list. SOCIAL HISTORY: No illicit drug use. REVIEW OF SYSTEMS: CONSTITUTIONAL: Denies fever or chills. HEENT: Denies blurred vision, vision changes, or eye pain. Denies hemoptysis ENDOCRINE: Denies heat or cold intolerance. CARDIOVASCULAR: Denies chest pain or pressure. RESPIRATORY: No shortness of breath. GASTROINTESTINAL: Please refer to HPI otherwise unremarkable NEURO: Denies history of seizures. PSYCH: No depression or suicidal ideation HEMATOLOGIC: Denies bleeding disorders. LYMPHATIC: The patient denies any lumps and bumps around the neck. GENITOURINARY: Denies any blood in urine or increased urinary frequency. MUSCULOSKELETAL: Denies myalgias. Denies joint swelling. Denies decreased range of motion beyond patients baseline. SKIN: Denies pruitis. Denies rash. PHYSICAL EXAM: VITAL SIGNS: Reviewed GENERAL: Well-developed in no acute distress. HEENT: No sclera icterus. Extraocular movements grossly intact. Moist buccal mucosa. Head is atraumatic, normocephalic. Hears conversational speech. No nasal drainage. NECK: Supple without lymphadenopathy. CHEST: Non-labored respirations and equal bilateral excursions. CARDIOVASCULAR: Palpable 2+ radial pulses. ABDOMEN: Soft. Nondistended. Nontender. ostomy no blood in noted in the ostomy bag. Stoma pink in color. 2 areas that are cauterized noted. No further bleeding noted. MUSCULOSKELETAL: No clubbing or cyanosis. NEUROLOGIC: No focal or lateralizing signs. Cranial nerves II through XII grossly intact. PSYCH: Appropriate affect. Alert and oriented to person, place and time. SKIN: Well perfused. Good skin turgor. LABORATORY DATA: WBC 5.2 Hgb 10.6 platelets 148 INR 1.2 Sodium 131 potassium 3.8 creatinine 0.72 lactic acid 1.2 IMAGING: Computed tomography scan abdomen and pelvis no evidence for gastrointestinal hemorrhage. No acute abdominal process. Limited evaluation. 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 ASSESSMENT: 1. Bleeding from ostomy site status post cauterization with silver nitrate in the ER. No further bleeding noted. 2. 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 History of trauma to the bowel requiring colostomy placement in January 2023 4. History of daily alcohol use 5. History of DVT on Xarelto PLAN: -Advance diet to Regular in AM -Continue to monitor for any bleeding -No surgical intervention planned Physician Solar Panel Technician note has been reviewed by physician. Signing provider agrees with the documented findings, assessment, and plan of care. Past Medical History Past Medical History: Deep Vein Thrombosis (DVT), Hypertension Additional Past Medical History / Comment(s): concussion History of Any Multi-Drug Resistant Organisms: None Reported Past Surgical History: No Surgical Hx Reported Additional Past Surgical History / Comment(s): jaw surgery, colostomy 01/2023 Past Anesthesia/Blood Transfusion Reactions: No Reported Reaction Past Psychological History: Anxiety, Depression Smoking Status: Former smoker Past Alcohol Use History: Abuse, Daily, Heavy Past Drug Use History: None Reported - Past Family History Father Additional Family Medical History / Comment(s): Spleen CA Mother Family Medical History: COPD Additional Family Medical History / Comment(s): empysema Medications and Allergies Home Medications Medication Instructions Recorded Confirmed Type Multivitamins, Thera [Multivitamin 1 tab PO DAILY 04/19/22 07/05/23 History (formulary)] Atorvastatin [Lipitor] 20 mg PO HS 11/23/22 07/05/23 History Furosemide [Lasix] 40 mg PO DAILY 11/23/22 07/05/23 History Sodium Chloride 0.65% Nasal [Deep 2 spr EA NOSTRIL QID PRN 11/23/22 07/05/23 History Sea (Saline)] Thiamine [Vitamin B-1] 100 mg PO DAILY 11/23/22 07/05/23 History Pantoprazole Sodium [Protonix] 20 mg PO DAILY 01/28/23 07/05/23 History Acetaminophen Tab [Tylenol] 650 mg PO Q6HR PRN tab 03/23/23 07/05/23 Rx Venlafaxine HCl [Effexor XR] 225 mg PO DAILY 04/26/23 07/05/23 History traZODone HCL [Desyrel] 200 mg PO HS PRN 04/26/23 07/05/23 History Metoprolol Tartrate [Lopressor] 50 mg PO BID #60 tab 05/03/23 07/05/23 Rx Folic Acid 1 mg PO DAILY 06/22/23 07/05/23 History QUEtiapine [SEROquel] 50 mg PO HS PRN 06/22/23 07/05/23 History Rivaroxaban [Xarelto] 20 mg PO DAILY 06/22/23 07/05/23 History Doxycycline [Vibramycin] 100 mg PO DIRECTED 07/05/23 07/05/23 History chlordiazePOXIDE HCl [Librium] 20 mg PO DIRECTED 07/05/23 07/05/23 History Allergies Allergy/AdvReac Type Severity Reaction Status Date / Time bacitracin Allergy Rash/Hives Verified 07/05/23 22:13 cephalexin [From Keflex] Allergy Itching Verified 07/05/23 22:13 Surgical - Exam Vital Signs Temp Pulse Resp BP Pulse Ox 98.6 F 100 18 130/77 96 07/05/23 18:23 07/05/23 18:23 07/05/23 18:23 07/05/23 18:23 07/05/23 18:23 Results - Labs 07/05/23 19:37 07/05/23 19:37 Abnormal Lab Results - Last 24 Hours (Table) 07/05/23 07/05/23 07/05/23 Range/Units 19:37 19:37 19:37 Hgb 10.6 L (11.4-16.0) gm/dL Hct 32.6 L (34.0-46.0) % RDW 16.4 H (11.5-15.5) % Plt Count 148 L (150-450) k/uL PT 12.6 H (10.0-12.5) sec INR 1.2 H (<1.2) Sodium 131 L (137-145) mmol/L Chloride 95 L (98-107) mmol/L Glucose 118 H (74-99) mg/dL Diabetes panel 07/05/23 Range/Units 19:37 Sodium 131 L (137-145) mmol/L Potassium 3.8 (3.5-5.1) mmol/L Chloride 95 L (98-107) mmol/L Carbon Dioxide 23 (22-30) mmol/L BUN 9 (7-17) mg/dL Creatinine 0.72 (0.52-1.04) mg/dL Glucose 118 H (74-99) mg/dL Calcium 9.7 (8.4-10.2) mg/dL AST 32 (14-36) U/L ALT 20 (4-34) U/L Alkaline Phosphatase 54 (38-126) U/L Total Protein 7.3 (6.3-8.2) g/dL Albumin 4.4 (3.5-5.0) g/dL Calcium panel 07/05/23 Range/Units 19:37 Calcium 9.7 (8.4-10.2) mg/dL Albumin 4.4 (3.5-5.0) g/dL Pituitary panel 07/05/23 Range/Units 19:37 Sodium 131 L (137-145) mmol/L Potassium 3.8 (3.5-5.1) mmol/L Chloride 95 L (98-107) mmol/L Carbon Dioxide 23 (22-30) mmol/L BUN 9 (7-17) mg/dL Creatinine 0.72 (0.52-1.04) mg/dL Glucose 118 H (74-99) mg/dL Calcium 9.7 (8.4-10.2) mg/dL Adrenal panel 07/05/23 Range/Units 19:37 Sodium 131 L (137-145) mmol/L Potassium 3.8 (3.5-5.1) mmol/L Chloride 95 L (98-107) mmol/L Carbon Dioxide 23 (22-30) mmol/L BUN 9 (7-17) mg/dL Creatinine 0.72 (0.52-1.04) mg/dL Glucose 118 H (74-99) mg/dL Calcium 9.7 (8.4-10.2) mg/dL Total Bilirubin 1.0 (0.2-1.3) mg/dL AST 32 (14-36) U/L ALT 20 (4-34) U/L Alkaline Phosphatase 54 (38-126) U/L Total Protein 7.3 (6.3-8.2) g/dL Albumin 4.4 (3.5-5.0) g/dL
[2023-07-06 15:53] LABS: Anisocytosis Slight; HCT 31.4 % (34.0-46.0); HGB 10.1 gm/dL (11.4-16.0); Hypochromasia Slight; MCH 27.8 pg (25.0-35.0); MCV 86.9 fL (80.0-100.0); Mean Platelet Volume 8.5; Platelet Count 130 k/uL (150-450); RBC 3.62 m/uL (3.80-5.40); RDW 16.3 % (11.5-15.5); WBC 4.3 k/uL (3.8-10.6)
[2023-07-06 17:38] LABS: HCT 32.1 % (37.2-46.3); HGB 9.9 d/dL (12.0-15.0); MCH 26.8 pg (27.0-32.0); MCHC 30.8 d/dL (32.0-37.0); Mean Platelet Volume 10.7 FL (9.5-12.2); NRBC Per 100 WBC 0 X 10*3/uL (0.00-0.01); Platelet Count 156 X 10*3/uL (140-440); RBC 3.69 X 10*6/uL (4.10-5.20); WBC 4.69 X 10*3/uL (4.50-10.00)
[2023-07-06] MEDS: ATORVASTATIN 20 MG TAB PO SCH (20:19)
[2023-07-06 23:13] LABS: Anisocytosis Slight; HCT 30.7 % (34.0-46.0); HGB 9.9 gm/dL (11.4-16.0); Hypochromasia Slight; MCHC 32.1 g/dL (31.0-37.0); Mean Platelet Volume 8.9; Platelet Count 136 k/uL (150-450); RBC 3.53 m/uL (3.80-5.40); RDW 16.3 % (11.5-15.5); WBC 4.2 k/uL (3.8-10.6)
[2023-07-07] MEDS: SODIUM CHLORIDE 0.9% 1,000 ML IV SCH ×2 (01:22→06:13)
[2023-07-07 04:35] VITALS: RESP 16
[2023-07-07] MEDS: PANTOPRAZOLE 40 MG TABLET PO SCH (06:13)
[2023-07-07 08:03] VITALS: BP 124/81; PULSE 76; TEMP 98.5
[2023-07-07] MEDS ORDERED: FOLIC ACID 1 MG TAB PO SCH (09:00)
[2023-07-07] MEDS ORDERED: FUROSEMIDE 40 MG TAB PO SCH (09:00)
[2023-07-07] MEDS: RIVAROXABAN 20 MG TAB PO SCH (10:31)
[2023-07-07] MEDS: GABAPENTIN 300 MG CAP PO SCH (10:31)
[2023-07-07] MEDS: FAMOTIDINE 20 MG TAB PO SCH (10:31)
[2023-07-07] MEDS: VENLAFAXINE HCL ER 75 MG CAP PO SCH (10:31)
[2023-07-07] MEDS: METOPROLOL TARTRATE 50 MG TAB PO SCH (10:32)
[2023-07-07] MEDS: THIAMINE 100 MG TAB PO SCH (10:32)
[2023-07-07 10:36] LABS: Basophils # (A) 0.01 X 10*3/uL (0.00-0.10); Basophils % (A) 0.3 %; Eosinophils # (A) 0.08 X 10*3/uL (0.04-0.35); Eosinophils % (A) 2.1 %; HCT 31.6 % (37.2-46.3); HGB 9.8 d/dL (12.0-15.0); Lymphocytes # (A) 1.01 X 10*3/uL (0.90-5.00); Lymphocytes % (A) 26.6 %; MCH 26.9 pg (27.0-32.0); MCV 86.8 FL (80.0-97.0); Mean Platelet Volume 11.4 FL (9.5-12.2); Monocytes # (A) 0.56 X 10*3/uL (0.20-1.00); Monocytes % (A) 14.7 %; NRBC Per 100 WBC 0 X 10*3/uL (0.00-0.01); Neutrophils # (A) 2.12 X 10*3/uL (1.80-7.70); Neutrophils % (A) 55.8 %; Platelet Count 143 X 10*3/uL (140-440); RBC 3.64 X 10*6/uL (4.10-5.20); RDW 16.8 % (11.5-14.5)
[2023-07-07 10:58] LABS: BUN/Creat Ratio 7.33 Ratio (12.00-20.00); Blood Urea Nitrogen 4.4 mg/dL (9.0-27.0); Calcium 9.2 mg/dL (8.7-10.3); Carbon Dioxide 25.7 mmol/L (21.6-31.8); Chloride 102 mmol/L (96-109); Glucose 97 mg/dL (70-110); Sodium 139 mmol/L (135-145)
--- NOTE | 2023-07-07 11:35 | P.PN ---
Subjective Progress Note Date: 07/07/23 CHIEF COMPLAINT: Bleeding at stoma HISTORY OF PRESENT ILLNESS: Patient has had no no further bleeding from her ostomy. She is currently on regular diet. Her anticoagulation was resumed. She denies any abdominal pain. Ostomy is functioning. Afebrile. WBC 3.8 Hgb 9.8 platelets 143 PHYSICAL EXAM: VITAL SIGNS: Reviewed GENERAL: Well-developed in no acute distress. HEENT: No sclera icterus. Extraocular movements grossly intact. Moist buccal mucosa. Head is atraumatic, normocephalic. Hears conversational speech. No nasal drainage. NECK: Supple without lymphadenopathy. CHEST: Non-labored respirations and equal bilateral excursions. CARDIOVASCULAR: Palpable 2+ radial pulses. ABDOMEN: Soft. Nondistended. Nontender. No further bleeding noted at the stoma. No blood in the ostomy bag. Stool is present. Stoma pink in color. MUSCULOSKELETAL: No clubbing or cyanosis. NEUROLOGIC: No focal or lateralizing signs. Cranial nerves II through XII grossly intact. PSYCH: Appropriate affect. Alert and oriented to person, place and time. SKIN: Well perfused. Good skin turgor. ASSESSMENT: 1. Bleeding from ostomy site status post cauterization with silver nitrate in the ER. No further bleeding noted. 2. 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 History of trauma to the bowel requiring colostomy placement in January 2023 4. History of daily alcohol use 5. History of DVT on Xarelto PLAN: -Patient can be discharged from surgical standpoint -No surgical intervention planned -Recommend patient follow up with her PCP and Dr. Vicente, patient's surgeon Physician Financial Compliance Examiner note has been reviewed by physician. Signing provider agrees with the documented findings, assessment, and plan of care. Objective - Vital Signs Vital signs: Vital Signs Temp 98.5 F 07/07/23 07:00 Pulse 76 07/07/23 07:00 Resp 16 07/07/23 07:00 BP 124/81 07/07/23 07:00 Pulse Ox 97 07/07/23 07:00 FiO2 Intake & Output 07/06/23 07/07/23 07/07/23 18:59 06:59 18:59 Intake Total 1020 Balance 1020 Intake: Oral 1020 Other: Voiding Method Toilet # Voids 2 2 - Labs CBC & Chem 7: 07/07/23 06:19 07/07/23 06:19 Labs: Abnormal Lab Results - Last 24 Hours (Table) 07/06/23 07/06/23 07/06/23 Range/Units 08:50 15:20 22:48 RBC 3.69 L 3.62 L 3.53 L (4.10-5.20) X 10*6/uL Hgb 9.9 L 10.1 L 9.9 L (12.0-15.0) d/dL Hct 32.1 L 31.4 L 30.7 L (37.2-46.3) % MCH 26.8 L (27.0-32.0) pg MCHC 30.8 L (32.0-37.0) d/dL RDW 17.0 H 16.3 H 16.3 H (11.5-14.5) % Plt Count 130 L 136 L (150-450) k/uL
--- NOTE | 2023-07-07 14:52 | P.CONS ---
History of Present Illness - Reason for Consult Consult date: 07/07/23 DVT Requesting physician: Marcia Emanuel - Chief Complaint Bleeding from ostomy, on anticoagulation - History of Present Illness Mrs. Lara is a 58-year-old female we have been asked to see because of a history of DVT, on anticoagulation, admitted currently with c/o bleeding from her stoma. Patient was initially diagnosed with a left lower extremity DVT in 2014. In 2018 it is documented as acute on chronic. 07/04 blood clot reported as chronic. Patient states that she has had "2 unprovoked clots". She said that she has seen a Vascular doctor, thinks the clots are related to a circulation problem. Patient is been on Xarelto 20 mg daily since 2014. She has had ostomy since January, after bowel trauma. She is due to have reversal in the next month or so. Patient denies any family history of blood disorders, no family history of cancers. Patient is followed by PCP Dr. Figueroa and that is who prescribes her Xarelto, 20mg PO QD. She denied any other bleeding. The bleeding from the ostomy has ceased. Anemia is noted in the chart earlier this year, Not necessarily worse at this time. Patient reports that she is active, rides her bike, walks, she uses compression stockings. Review of Systems 10 point review of systems is negative except as stated in HPI Past Medical History Past Medical History: Deep Vein Thrombosis (DVT), Hypertension Additional Past Medical History / Comment(s): concussion History of Any Multi-Drug Resistant Organisms: None Reported Past Surgical History: No Surgical Hx Reported Additional Past Surgical History / Comment(s): jaw surgery, colostomy 01/2023 Past Anesthesia/Blood Transfusion Reactions: No Reported Reaction Past Psychological History: Anxiety, Depression Smoking Status: Former smoker Past Alcohol Use History: Abuse, Daily, Heavy Past Drug Use History: None Reported - Past Family History Father Additional Family Medical History / Comment(s): Spleen CA Mother Family Medical History: COPD Additional Family Medical History / Comment(s): empysema Medications and Allergies Home Medications Medication Instructions Recorded Confirmed Type Multivitamins, Thera [Multivitamin 1 tab PO DAILY 04/19/22 07/05/23 History (formulary)] Atorvastatin [Lipitor] 20 mg PO HS 11/23/22 07/05/23 History Furosemide [Lasix] 40 mg PO DAILY 11/23/22 07/05/23 History Sodium Chloride 0.65% Nasal [Deep 2 spr EA NOSTRIL QID PRN 11/23/22 07/05/23 History Sea (Saline)] Thiamine [Vitamin B-1] 100 mg PO DAILY 11/23/22 07/05/23 History Pantoprazole Sodium [Protonix] 20 mg PO DAILY 01/28/23 07/05/23 History Acetaminophen Tab [Tylenol] 650 mg PO Q6HR PRN tab 03/23/23 07/05/23 Rx Venlafaxine HCl [Effexor XR] 225 mg PO DAILY 04/26/23 07/05/23 History traZODone HCL [Desyrel] 200 mg PO HS PRN 04/26/23 07/05/23 History Metoprolol Tartrate [Lopressor] 50 mg PO BID #60 tab 05/03/23 07/05/23 Rx Folic Acid 1 mg PO DAILY 06/22/23 07/05/23 History QUEtiapine [SEROquel] 50 mg PO HS PRN 06/22/23 07/05/23 History Rivaroxaban [Xarelto] 20 mg PO DAILY 06/22/23 07/05/23 History Gabapentin [Neurontin] 200 mg PO TID cap 07/07/23 Rx Allergies Allergy/AdvReac Type Severity Reaction Status Date / Time bacitracin Allergy Rash/Hives Verified 07/05/23 22:13 cephalexin [From Keflex] Allergy Itching Verified 07/05/23 22:13 Physical Exam Vitals: Vital Signs Temp Pulse Resp BP BP Pulse Ox 07/07/23 07:00 98.5 F 76 16 124/81 97 07/07/23 03:18 98.1 F 72 16 122/73 96 07/06/23 18:37 98.2 F 80 12 117/80 97 07/06/23 14:35 98.5 F 83 12 119/79 96 Intake and Output 07/06/23 07/07/23 07/07/23 22:59 06:59 14:59 Other: Voiding Method Toilet # Voids 1 2 - Constitutional General appearance: cooperative, no acute distress, obese - EENT Eyes: anicteric sclerae, EOMI ENT: hearing grossly normal, normal oropharynx - Neck Neck: no lymphadenopathy - Respiratory Respiratory: bilateral: CTA - Cardiovascular Rhythm: regular Heart sounds: normal: S1, S2 Abnormal Heart Sounds: no systolic murmur, no diastolic murmur, no rub, no S3 Gallop, no S4 Gallop, no click, no other leg Peripheral Edema: right: Trace, left: 1+ - Gastrointestinal General gastrointestinal: no absent bowel sounds, no decreased bowel sounds, no distended, no hepatomegaly, no hyperactive bowel sounds, normal bowel sounds, no organomegaly, no rigid, no scaphoid, soft, no splenomegaly, no tenderness, no umbilical hernia, no ventral hernia - Integumentary Bronzed skin of the bilateral lower extremities consistent with venous insufficiency - Neurologic Neurologic: CNII-XII intact - Musculoskeletal Musculoskeletal: strength equal bilaterally - Psychiatric Psychiatric: A&O x's 3, appropriate affect, intact judgment & insight Results CBC & Chem 7: 07/07/23 06:19 07/07/23 06:19 Labs: Abnormal Lab Results - Last 24 Hours (Table) 07/06/23 07/06/23 07/06/23 Range/Units 08:50 15:20 22:48 RBC 3.69 L 3.62 L 3.53 L (4.10-5.20) X 10*6/uL Hgb 9.9 L 10.1 L 9.9 L (12.0-15.0) d/dL Hct 32.1 L 31.4 L 30.7 L (37.2-46.3) % MCH 26.8 L (27.0-32.0) pg MCHC 30.8 L (32.0-37.0) d/dL RDW 17.0 H 16.3 H 16.3 H (11.5-14.5) % Plt Count 130 L 136 L (150-450) k/uL Assessment and Plan (1) Left leg DVT Status: Chronic Priority: Medium Code(s): I82.402 - ACUTE EMBOLISM AND THOMBOS UNSP DEEP VEINS OF L LOW EXTREM SNOMED Code(s): 049468574 Plan: Chronic left lower extremity DVT, Dx 2014 initial, acute on chronic 2019, chronic 07/04 -Patient is never been evaluated by a [facility], has been evaluated by Vascular in the past elsewhere. Pt told clotting was due to a chronic vascular issue so, she is to remain on anticoagulation indefinitely. -On Xarelto since about 2014. Her PCP provides the Rx -Bleeding from the ostomy has stopped at this time. -Recommendation is for patient to hold Xarelto for a few days to ensure stable hemoglobin and no other bleeding. Reduce dose to 10 mg of Xarelto daily for now. Recommend full dose postop ostomy reversal for a few weeks-until back to normal activity levels- then reasonable decrease to a 15 mg maintenance dose for long-term anticoagulation. -Will CC PCP recommendations attests: I have seen and examined patient, performed H&P, developed impression and plan of care. Discussed with dictator. Agree with documentation, dictated as a scribe.
--- NOTE | 2023-07-09 14:12 | P.DS ---
Providers Date of admission: 07/05/23 22:32 Expected date of discharge: 07/07/23 Attending physician: Marcia Emanuel Consults: 07/05/23 22:32 Consult Physician Routine Consulting Provider: Rubi Duque Consult Reason/Comments: abdominal pain. Ostomy bleeding Do you want consulting provider notified?: Yes 07/06/23 11:09 Consult Physician Routine Consulting Provider: Nithin Lester Consult Reason/Comments: dvt Do you want consulting provider notified?: Yes Primary care physician: Constantine Figueroa Hospital Course: Final diagnosis Bleeding from ostomy site possibly secondary to Xarelto use Mild anemia secondary to above History of deep vein thrombosis hypertension Anxiety and depression History of EtOH GI prophylaxis DVT prophylaxis Full code Discharge disposition Patient is being discharged in a stable condition with guarded prognosis to home. Patient will follow-up with in the outpatient setting upon discharge. Patient is to continue with holding xarelto for a few days and recheck on hemoglobin and then decrease the dose to 10 mg daily. Hematology also recommends full dosing postop after reversal of ostomy for a few weeks and then decrease to 15 mg lifelong. Patient will need close outpatient follow-up with hematology and her surgeon Dr. Gunn that is scheduled in the next few weeks. Total time taken is greater than 35 minutes. Hospital course This is a 58-year-old female who was recently admitted with bleeding from the ostomy site. Patient was seen and evaluated by hematology along with general surgery's with no plans for surgical intervention and adjustments to Xarelto were made with hematology as mentioned above. Patient will need close outpatient follow-up with her surgeon for reversal of ostomy and instructions on anticoagulation pre-and postoperatively. Patient having no further bleeding and no abdominal pain has been cleared by consultations. Please refer to other consultation notes for further HPI. Currently no reports of chest pain, shortness of breath, or palpitations. Patient is afebrile. No reports of nausea or vomiting and patient is tolerating diet. Patient will be discharged home today. Guarded prognosis given patient's comorbidities and recent previous drinking. Patient reports to being sober for 2 weeks. Physical exam: Gen: This is a 58-year-old female who is awake, alert and oriented 3, well- developed, well-nourished, obese HEENT: Head is atraumatic, normocephalic. Pupils equal, round. Sclerae is anicteric. NECK: Supple. No JVD. No lymphadenopathy. No thyromegaly. LUNGS: Clear to auscultation. No wheezes or rhonchi. No intercostal retractions. HEART: Regular rate and rhythm. No murmur. ABDOMEN: Soft. Bowel sounds are present. No masses. No tenderness. Ostomy noted with no blood EXTREMITIES: No pedal edema. No calf tenderness. NEUROLOGICAL: Patient is awake, alert and oriented x3. Cranial nerves 2 through 12 are grossly intact. Please refer to medication reconciliation sheet for a list of medications. The impression and plan of care has been dictated by Monica Banda, Nurse Practitioner as directed. Dr. Adelfo MD I have performed a history and examination and MDM of this patient, discussed the same with the dictator, and agree with the dictator's assessment and plan as written ,documented as a scribe. Based on total visit time, I have performed more than 50% of the visit. Patient Condition at Discharge: Good Plan - Discharge Summary New Discharge Prescriptions: New Gabapentin [Neurontin] 200 mg PO TID cap Continue Multivitamins, Thera [Multivitamin (formulary)] 1 tab PO DAILY Furosemide [Lasix] 40 mg PO DAILY Pantoprazole Sodium [Protonix] 20 mg PO DAILY traZODone HCL [Desyrel] 200 mg PO HS PRN PRN Reason: Insomnia Metoprolol Tartrate [Lopressor] 50 mg PO BID #60 tab Folic Acid 1 mg PO DAILY Thiamine [Vitamin B-1] 100 mg PO DAILY Sodium Chloride 0.65% Nasal [Deep Sea (Saline)] 2 spr EA NOSTRIL QID PRN PRN Reason: Allergy Symptoms Atorvastatin [Lipitor] 20 mg PO HS Acetaminophen Tab [Tylenol] 650 mg PO Q6HR PRN tab PRN Reason: Fever And/ Or Pain Venlafaxine HCl [Effexor XR] 225 mg PO DAILY Rivaroxaban [Xarelto] 20 mg PO DAILY QUEtiapine [SEROquel] 50 mg PO HS PRN PRN Reason: Agitation Or Acute Psychosis Discontinued chlordiazePOXIDE HCl [Librium] 20 mg PO DIRECTED Doxycycline [Vibramycin] 100 mg PO DIRECTED Discharge Medication List Multivitamins, Thera [Multivitamin (formulary)] 1 tab PO DAILY 04/19/22 [History] Atorvastatin [Lipitor] 20 mg PO HS 11/23/22 [History] Furosemide [Lasix] 40 mg PO DAILY 11/23/22 [History] Sodium Chloride 0.65% Nasal [Deep Sea (Saline)] 2 spr EA NOSTRIL QID PRN 11/23/22 [History] Thiamine [Vitamin B-1] 100 mg PO DAILY 11/23/22 [History] Pantoprazole Sodium [Protonix] 20 mg PO DAILY 01/28/23 [History] Acetaminophen Tab [Tylenol] 650 mg PO Q6HR PRN tab 03/23/23 [Rx] Venlafaxine HCl [Effexor XR] 225 mg PO DAILY 04/26/23 [History] traZODone HCL [Desyrel] 200 mg PO HS PRN 04/26/23 [History] Metoprolol Tartrate [Lopressor] 50 mg PO BID #60 tab 05/03/23 [Rx] Folic Acid 1 mg PO DAILY 06/22/23 [History] QUEtiapine [SEROquel] 50 mg PO HS PRN 06/22/23 [History] Rivaroxaban [Xarelto] 20 mg PO DAILY 06/22/23 [History] Gabapentin [Neurontin] 200 mg PO TID cap 07/07/23 [Rx] Follow up Appointment(s)/Referral(s): Constantine Figueroa DO [Primary Care Provider] - 1-2 days Patient Instructions/Handouts: Gastrointestinal Bleeding (DC), Colostomy Care (DC) Activity/Diet/Wound Care/Special Instructions: Activity Limited until follow-up Follow-up with primary care provider on discharge Follow-up with your surgeon Dr. Gunn at scheduled appointment Continue current diet Avoid all alcohol intake Discharge Disposition: HOME SELF-CARE
== END 2023-07-07 13:47 | disposition home or self-care (01) ==
LOC: EC 18:07 → 6NMEDSUR 22:32
PROVIDERS: ADMIT Hospitalist; ATTEND Hospitalist
DX: K94.21 Gastrostomy hemorrhage (principal); Y83.8 Other surgical procedures as the cause of abnormal reaction of the patient, or of later complication, without mention of misadventure at the time of the procedure; Y73.3 Surgical instruments, materials and gastroenterology and urology devices (including sutures) associated with adverse incidents; K43.5 Parastomal hernia without obstruction or gangrene; R10.9 Unspecified abdominal pain; I10 Essential (primary) hypertension; F32.A Depression, unspecified; F41.9 Anxiety disorder, unspecified; F10.10 Alcohol abuse, uncomplicated; D64.9 Anemia, unspecified; Z86.718 Personal history of other venous thrombosis and embolism; Z87.891 Personal history of nicotine dependence; Z79.01 Long term (current) use of anticoagulants; Z79.899 Other long term (current) drug therapy; Z88.1 Allergy status to other antibiotic agents; Z88.2 Allergy status to sulfonamides
CPT/HCPCS: 96361 ×2; 96374; 99285; 36415; 80053; 80048; 83605; 84484; 85025 ×2; 85027; 85610; 85730; 74018; 74176; G0378 ×3; J2270

== ENCOUNTER 2023-07-24 08:28 | Emergency (ER) | payer OTHER ==
[2023-07-24] MEDS ORDERED: METOCLOPRAMIDE 5 MG/ML 2 ML VIAL IVP STA (08:39)
[2023-07-24] MEDS ORDERED: DICYCLOMINE 10 MG CAP PO STA (08:39)
[2023-07-24] MEDS ORDERED: FAMOTIDINE 20 MG/2 ML VIAL IV STA (08:40)
--- NOTE | 2023-07-24 08:42 | ED ---
General Adult HPI - General Chief complaint: Abdominal Pain Stated complaint: Abdominal pain Time Seen by Provider: 07/24/23 08:31 Source: patient, EMS, RN notes reviewed Mode of arrival: EMS Limitations: no limitations - History of Present Illness Initial comments: Patient is a 58-year-old female presenting to the emergency department with concerns for abdominal pain. Onset of symptoms was yesterday. Patient has discomfort mostly near her ostomy bag. Patient is still having stool passing through her ostomy bag. No nausea vomiting. No fever. Patient does have history of similar symptoms previously. - Related Data Home Medications Medication Instructions Recorded Confirmed Multivitamins, Thera [Multivitamin 1 tab PO DAILY 04/19/22 07/05/23 (formulary)] Atorvastatin [Lipitor] 20 mg PO HS 11/23/22 07/05/23 Furosemide [Lasix] 40 mg PO DAILY 11/23/22 07/05/23 Sodium Chloride 0.65% Nasal [Deep 2 spr EA NOSTRIL QID PRN 11/23/22 07/05/23 Sea (Saline)] Thiamine [Vitamin B-1] 100 mg PO DAILY 11/23/22 07/05/23 Pantoprazole Sodium [Protonix] 20 mg PO DAILY 01/28/23 07/05/23 Venlafaxine HCl [Effexor XR] 225 mg PO DAILY 04/26/23 07/05/23 traZODone HCL [Desyrel] 200 mg PO HS PRN 04/26/23 07/05/23 Folic Acid 1 mg PO DAILY 06/22/23 07/05/23 QUEtiapine [SEROquel] 50 mg PO HS PRN 06/22/23 07/05/23 Rivaroxaban [Xarelto] 20 mg PO DAILY 06/22/23 07/05/23 Previous Rx's Medication Instructions Recorded Acetaminophen Tab [Tylenol] 650 mg PO Q6HR PRN tab 03/23/23 Metoprolol Tartrate [Lopressor] 50 mg PO BID #60 tab 05/03/23 Gabapentin [Neurontin] 200 mg PO TID cap 07/07/23 Allergies Allergy/AdvReac Type Severity Reaction Status Date / Time bacitracin Allergy Rash/Hives Verified 07/24/23 08:37 cephalexin [From Keflex] Allergy Itching Verified 07/24/23 08:37 Review of Systems ROS Statement: Those systems with pertinent positive or pertinent negative responses have been documented in the HPI. ROS Other: All systems not noted in ROS Statement are negative. Constitutional: Denies: fever Eyes: Denies: eye pain ENT: Denies: ear pain Respiratory: Denies: cough Cardiovascular: Denies: chest pain Endocrine: Denies: fatigue Gastrointestinal: Reports: as per HPI, abdominal pain. Denies: nausea, vomiting, diarrhea, constipation Genitourinary: Denies: dysuria Musculoskeletal: Denies: back pain Past Medical History Past Medical History: Deep Vein Thrombosis (DVT), Hypertension Additional Past Medical History / Comment(s): concussion History of Any Multi-Drug Resistant Organisms: None Reported Past Surgical History: No Surgical Hx Reported Additional Past Surgical History / Comment(s): jaw surgery, colostomy 01/2023 Past Anesthesia/Blood Transfusion Reactions: No Reported Reaction Past Psychological History: Anxiety, Depression Smoking Status: Former smoker Past Alcohol Use History: Abuse, Daily, Heavy Past Drug Use History: None Reported - Past Family History Father Additional Family Medical History / Comment(s): Spleen CA Mother Family Medical History: COPD Additional Family Medical History / Comment(s): empysema General Exam Limitations: no limitations General appearance: alert, in no apparent distress Head exam: Present: normocephalic Eye exam: Present: normal appearance Neck exam: Present: normal inspection Respiratory exam: Present: normal lung sounds bilaterally Cardiovascular Exam: Present: regular rate, normal rhythm GI/Abdominal exam: Present: soft, tenderness (Mild diffuse tenderness), normal bowel sounds. Absent: distended, guarding, rebound, rigid, pulsatile mass Extremities exam: Present: normal inspection Neurological exam: Present: alert Psychiatric exam: Present: normal affect, normal mood Skin exam: Present: normal color Course Vital Signs 07/24/23 07/24/23 07/24/23 08:30 09:27 10:44 Temperature 98.0 F Pulse Rate 91 80 80 Respiratory 18 18 18 Rate Blood Pressure 115/64 114/74 123/86 O2 Sat by Pulse 95 96 96 Oximetry Medical Decision Making - Medical Decision Making Was pt. sent in by a medical professional or institution (, PA, QUILLER MACHINE FIXER, urgent care, hospital, or care home...) When possible be specific @ -No Did you speak to anyone other than the patient for history (EMS, parent, family, police, friend...)? What history was obtained from this source @ -No Did you review nursing and triage notes (agree or disagree)? Why? @ -I reviewed and agree with nursing and triage notes Were old charts reviewed (outside hosp., previous admission, EMS record, old EKG, old radiological studies, urgent care reports/EKG's, care home records)? Report findings @ -Previous CT reports reviewed Differential Diagnosis (chest pain, altered mental status, abdominal pain women, abdominal pain men, vaginal bleeding, weakness, fever, dyspnea, syncope, headache, dizziness, GI bleed, back pain, seizure, CVA, palpatations, mental health, musculoskeletal)? @ -Differential Abdominal Pain Women: Appendicitis, Cholecystitis, diverticulosis, ischemic bowel, pancreatitis, hepatitis, UTI, gastroenteritis, AAA, incarcerated hernia, bowel obstruction, constipation, inflammatory bowel, hepatitis, peptic ulcer disease, splenic infarction, perforated viscus, vulvitis, ovarian torsion, PID, kidney stone, placenta abruption, this is not meant to be an all-inclusive list EKG interpreted by me (3pts min.). @ -As above X-rays interpreted by me (1pt min.). @ -None done CT interpreted by me (1pt min.). @ -Report reviewed U/S interpreted by me (1pt. min.). @ -None done What testing was considered but not performed or refused? (CT, X-rays, U/S, labs)? Why? @ -None What meds were considered but not given or refused? Why? @ -None Did you discuss the management of the patient with other professionals (professionals i.e. , PA, QUILLER MACHINE FIXER, lab, RT, psych nurse, social media specialist, manager call, teacher, air defense artillery officer, family preservation caseworker)? Give summary @ -No Was smoking cessation discussed for >3mins.? @ -No Was critical care preformed (if so, how long)? @ -No Were there social determinants of health that impacted care today? How? (Homelessness, low income, unemployed, alcoholism, drug addiction, transportation, low edu. Level, literacy, decrease access to med. care, prison, rehab)? @ -No Was there de-escalation of care discussed even if they declined (Discuss DNR or withdrawal of care, Hospice)? DNR status @ -No What co-morbidities impacted this encounter? (DM, HTN, Smoking, COPD, CAD, Cancer, CVA, ARF, Chemo, Hep., AIDS, mental health diagnosis, sleep apnea, morbid obesity)? @ -None Was patient admitted / discharged? Hospital course, mention meds given and route, prescriptions, significant lab abnormalities, going to OR and other pertinent info. @ -Patient reevaluated and resting comfortably in bed. Patient states she is feeling much better. Abdomen soft and nontender. Patient has mild stomal hernia dyspnea on exam that is nontender in easily reducible. Patient states she did just see her surgeon last week with plans to reverse ostomy. Patient is updated on results and need for follow-up Undiagnosed new problem with uncertain prognosis? @ -No Drug Therapy requiring intensive monitoring for toxicity (Heparin, Nitro, Insulin, Cardizem)? @ -No Were any procedures done? @ -No Diagnosis/symptom? @ -Stomal hernia, abdominal pain Acute, or Chronic, or Acute on Chronic? @ -Acute on chronic Uncomplicated (without systemic symptoms) or Complicated (systemic symptoms)? @ -default Side effects of treatment? @ -No Exacerbation, Progression, or Severe Exacerbation? @ -No Poses a threat to life or bodily function? How? (Chest pain, [place], [place], pneumonia, PE, COPD, DKA, ARF, appy, cholecystitis, CVA, Diverticulitis, Homicidal, Suicidal, threat to staff... and all critical care pts) @ -No - Lab Data Result diagrams: 07/24/23 08:57 07/24/23 08:57 Lab Results 07/24/23 07/24/23 07/24/23 Range/Units 08:57 08:57 08:57 WBC 5.2 (3.8-10.6) k/uL RBC 4.09 (3.80-5.40) m/uL Hgb 11.1 L (11.4-16.0) gm/dL Hct 35.0 (34.0-46.0) % MCV 85.4 (80.0-100.0) fL MCH 27.2 (25.0-35.0) pg MCHC 31.8 (31.0-37.0) g/dL RDW 16.2 H (11.5-15.5) % Plt Count 238 (150-450) k/uL MPV 7.3 Neutrophils % 65 % Lymphocytes % 27 % Monocytes % 5 % Eosinophils % 1 % Basophils % 0 % Neutrophils # 3.3 (1.3-7.7) k/uL Lymphocytes # 1.4 (1.0-4.8) k/uL Monocytes # 0.2 (0-1.0) k/uL Eosinophils # 0.1 (0-0.7) k/uL Basophils # 0.0 (0-0.2) k/uL Hypochromasia Slight Anisocytosis Slight PT 9.9 L (10.0-12.5) sec INR 0.9 (<1.2) APTT 21.3 L (22.0-30.0) sec Sodium 142 (137-145) mmol/L Potassium 4.2 (3.5-5.1) mmol/L Chloride 106 (98-107) mmol/L Carbon Dioxide 21 L (22-30) mmol/L Anion Gap 15 mmol/L BUN 8 (7-17) mg/dL Creatinine 0.57 (0.52-1.04) mg/dL Est GFR (CKD-EPI)AfAm >90 (>60 ml/min/1.73 sqM) Est GFR (CKD-EPI)NonAf >90 (>60 ml/min/1.73 sqM) Glucose 85 (74-99) mg/dL Calcium 8.9 (8.4-10.2) mg/dL Total Bilirubin 0.6 (0.2-1.3) mg/dL AST 30 (14-36) U/L ALT 14 (4-34) U/L Alkaline Phosphatase 77 (38-126) U/L Total Protein 6.9 (6.3-8.2) g/dL Albumin 4.2 (3.5-5.0) g/dL Amylase 58 (30-110) U/L Lipase 170 (23-300) U/L Disposition Clinical Impression: Abdominal pain, Abdominal wall hernia at previous stoma site Disposition: HOME SELF-CARE Condition: Stable Instructions (If sedation given, give patient instructions): Abdominal Pain (ED) Additional Instructions: Please do follow-up with your surgeon beginning of next week. Please also follow-up to primary care physician. Return for increased pain, vomiting, fever, worsening or change in symptoms, not passing stool, or other concerns. Is patient prescribed a controlled substance at d/c from ED?: No Referrals: Constantine Figueroa DO [Primary Care Provider] - 1-2 days Time of Disposition: 11:34
[2023-07-24 08:58] VITALS: RESP 18
[2023-07-24 09:41] LABS: Anisocytosis Slight; Basophils % (A) 0 %; Eosinophils # (A) 0.1 k/uL (0-0.7); Eosinophils % (A) 1 %; HGB 11.1 gm/dL (11.4-16.0); Hypochromasia Slight; Lymphocytes # (A) 1.4 k/uL (1.0-4.8); Lymphocytes % (A) 27 %; MCH 27.2 pg (25.0-35.0); MCHC 31.8 g/dL (31.0-37.0); MCV 85.4 fL (80.0-100.0); Mean Platelet Volume 7.3; Monocytes # (A) 0.2 k/uL (0-1.0); Monocytes % (A) 5 %; Neutrophils # (A) 3.3 k/uL (1.3-7.7); Neutrophils % (A) 65 %; Platelet Count 238 k/uL (150-450); RBC 4.09 m/uL (3.80-5.40); RDW 16.2 % (11.5-15.5); WBC 5.2 k/uL (3.8-10.6)
[2023-07-24 09:56] LABS: ALT 14 U/L (4-34); AST 30 U/L (14-36); African American GFR (CKD) >90 (>60 ml/min/1.73 sqM); Albumin 4.2 g/dL (3.5-5.0); Alkaline Phosphatase 77 U/L (38-126); Amylase 58 U/L (30-110); Anion Gap 15 mmol/L; Blood Urea Nitrogen 8 mg/dL (7-17); Calcium 8.9 mg/dL (8.4-10.2); Carbon Dioxide 21 mmol/L (22-30); Chloride 106 mmol/L (98-107); Glucose 85 mg/dL (74-99); Lipase 170 U/L (23-300); Non-African American GFR(CKD) >90 (>60 ml/min/1.73 sqM); Potassium 4.2 mmol/L (3.5-5.1); Sodium 142 mmol/L (137-145); Total Bilirubin 0.6 mg/dL (0.2-1.3); Total Protein 6.9 g/dL (6.3-8.2)
[2023-07-24 10:16] LABS: INR 0.9 (<1.2); Prothrombin Time 9.9 sec (10.0-12.5)
[2023-07-24 10:24] LABS: Partial Thromboplastin Time 21.3 sec (22.0-30.0)
--- NOTE | 2023-07-24 10:43 | CT ---
EXAMINATION TYPE: CT abdomen pelvis w con CT DLP: 1214.6 mGycm, Automated exposure control for dose reduction was used. DATE OF EXAM: 07/24/2023 10:20 AM COMPARISON: CT abdomen pelvis most recent from most recent 07/06/2023 dating back to 01/28/2023. CLINICAL INDICATION:Female, 58 years old with history of abdominal pain; Abdominal pain TECHNIQUE: Axial CT of the ;CT abdomen pelvis w con;Sagittal and coronal reformats were created on a separate workstation. Contrast used:100 ml mL of Isovue 300 with IV Contrast, (none if empty) Oral contrast used: without Oral Contrast (none if empty) FINDINGS: LOWER CHEST: Right intrafissural lymph node versus subpleural nodule measuring average 4 mm. Other ri ght lower lung nodules measuring up to 4 mm are stable. ABDOMEN LIVER: Diffusely hypoattenuating parenchyma. GALLBLADDER AND BILE DUCTS: Dilation of the extrahepatic biliary system up to 10 mm. PANCREAS: Unremarkable. SPLEEN: Unremarkable. ADRENAL GLANDS: Unremarkable. KIDNEYS AND URETERS: No evidence of hydronephrosis or renal calculus. The ureters are unremarkable. PELVIS BLADDER: Unremarkable REPRODUCTIVE: Unremarkable. ABDOMEN & PELVIS STOMACH AND BOWEL: Small hiatal hernia. No evidence of bowel obstruction. Left lower quadrant ostomy. There is a parastomal hernia containing loops of large bowel. PERITONEUM/RETROPERITONEUM: No evidence of pneumoperitoneum or free fluid. VASCULATURE: No evidence of aortic aneurysm. MUSCULOSKELETAL: No acute osseous abnormalities LYMPH NODES: No gross evidence for lymphadenopathy. SOFT TISSUE/ABDOMINAL WALL: Unremarkable IMPRESSION: 1. Left lower quadrant ostomy. There is a parastomal hernia containing loops of large bowel. No defi nitive acute abdominal process. 2. Dilation of the extra hepatic biliary system to 10 mm. Stable back to at least 01/28/2023. 3. Colonic diverticulosis. 4. Hepatic steatosis. 5. Small hiatal hernia. 6. Right lung base pulmonary nodules are stable from at least 01/28/2023.
[2023-07-24 12:15] VITALS: BP 116/94; PULSE 84; TEMP 98.3
== END 2023-07-24 11:54 | disposition home or self-care (01) ==
LOC: EC 08:28
DX: K43.5 Parastomal hernia without obstruction or gangrene (principal); I10 Essential (primary) hypertension; Z86.718 Personal history of other venous thrombosis and embolism; F41.9 Anxiety disorder, unspecified; F32.A Depression, unspecified; Z87.891 Personal history of nicotine dependence; Z88.1 Allergy status to other antibiotic agents; Z88.8 Allergy status to other drugs, medicaments and biological substances; Z79.01 Long term (current) use of anticoagulants; Z79.899 Other long term (current) drug therapy
CPT/HCPCS: 36415; 80053; 82150; 83690; 85025; 85610; 85730; 74177; 99285; 96374; 96375; J2765; J3490; Q9967

== ENCOUNTER 2023-08-01 00:16 | Emergency (ER) | payer MEDICARE, OTHER ==
[2023-08-01 00:38] VITALS: RESP 18; TEMP 98
[2023-08-01] MEDS ORDERED: ONDANSETRON 4 MG/2 ML VIAL IVP STA (00:43)
[2023-08-01] MEDS ORDERED: HYDROmorphone 1 MG/ML 1 ML SYRINGE IVP STA (00:43)
[2023-08-01 01:11] LABS: Anisocytosis Slight; Basophils % (A) 0 %; Eosinophils # (A) 0.1 k/uL (0-0.7); Eosinophils % (A) 1 %; HCT 32.7 % (34.0-46.0); HGB 10.4 gm/dL (11.4-16.0); Hypochromasia Slight; Lymphocytes # (A) 1.4 k/uL (1.0-4.8); Lymphocytes % (A) 30 %; MCH 27.4 pg (25.0-35.0); MCHC 31.8 g/dL (31.0-37.0); Mean Platelet Volume 8.6; Monocytes # (A) 0.3 k/uL (0-1.0); Monocytes % (A) 7 %; Neutrophils # (A) 2.8 k/uL (1.3-7.7); Neutrophils % (A) 58 %; RBC 3.81 m/uL (3.80-5.40); RDW 16.7 % (11.5-15.5); WBC 4.7 k/uL (3.8-10.6)
[2023-08-01 01:18] LABS: Platelet Count 102 k/uL (150-450)
[2023-08-01 01:21] LABS: ALT 43 U/L (4-34); AST 84 U/L (14-36); African American GFR (CKD) >90 (>60 ml/min/1.73 sqM); Albumin 4.1 g/dL (3.5-5.0); Alkaline Phosphatase 83 U/L (38-126); Anion Gap 15 mmol/L; Blood Urea Nitrogen 4 mg/dL (7-17); Calcium 9.2 mg/dL (8.4-10.2); Carbon Dioxide 18 mmol/L (22-30); Chloride 97 mmol/L (98-107); Glucose 102 mg/dL (74-99); Non-African American GFR(CKD) >90 (>60 ml/min/1.73 sqM); Potassium 3.2 mmol/L (3.5-5.1); Sodium 130 mmol/L (137-145); Total Bilirubin 0.5 mg/dL (0.2-1.3); Total Protein 6.6 g/dL (6.3-8.2)
--- NOTE | 2023-08-01 01:37 | ED ---
Abdominal Pain HPI - General Chief Complaint: Abdominal Pain Stated Complaint: Abdominal Pain Time Seen by Provider: 08/01/23 00:31 Source: EMS Mode of arrival: EMS - History of Present Illness Initial Comments: 58-year-old female with history of alcoholism presenting with chief complaint of abdominal pain. Patient got a colostomy back in January. She states that she has been having pain at the colostomy site for about 4 months. This pain is consistent with previous episodes of pain that she has been evaluated for, no changes in this pain. She admits to nausea and vomiting. No fevers or chills. No chest pain or difficulty breathing. No injury or trauma. Patient states she is scheduled to have a colostomy reversal in August. - Related Data Home Medications Medication Instructions Recorded Confirmed Multivitamins, Thera [Multivitamin 1 tab PO DAILY 04/19/22 07/05/23 (formulary)] Atorvastatin [Lipitor] 20 mg PO HS 11/23/22 07/05/23 Furosemide [Lasix] 40 mg PO DAILY 11/23/22 07/05/23 Sodium Chloride 0.65% Nasal [Deep 2 spr EA NOSTRIL QID PRN 11/23/22 07/05/23 Sea (Saline)] Thiamine [Vitamin B-1] 100 mg PO DAILY 11/23/22 07/05/23 Pantoprazole Sodium [Protonix] 20 mg PO DAILY 01/28/23 07/05/23 Venlafaxine HCl [Effexor XR] 225 mg PO DAILY 04/26/23 07/05/23 traZODone HCL [Desyrel] 200 mg PO HS PRN 04/26/23 07/05/23 Folic Acid 1 mg PO DAILY 06/22/23 07/05/23 QUEtiapine [SEROquel] 50 mg PO HS PRN 06/22/23 07/05/23 Rivaroxaban [Xarelto] 20 mg PO DAILY 06/22/23 07/05/23 Previous Rx's Medication Instructions Recorded Acetaminophen Tab [Tylenol] 650 mg PO Q6HR PRN tab 03/23/23 Metoprolol Tartrate [Lopressor] 50 mg PO BID #60 tab 05/03/23 Gabapentin [Neurontin] 200 mg PO TID cap 07/07/23 Allergies Allergy/AdvReac Type Severity Reaction Status Date / Time bacitracin Allergy Rash/Hives Verified 08/01/23 00:22 cephalexin [From Keflex] Allergy Itching Verified 08/01/23 00:22 Review of Systems ROS Statement: Those systems with pertinent positive or pertinent negative responses have been documented in the HPI. ROS Other: All systems not noted in ROS Statement are negative. Past Medical History Past Medical History: Deep Vein Thrombosis (DVT), Hypertension Additional Past Medical History / Comment(s): concussion History of Any Multi-Drug Resistant Organisms: None Reported Past Surgical History: No Surgical Hx Reported Additional Past Surgical History / Comment(s): jaw surgery, colostomy 01/2023 Past Anesthesia/Blood Transfusion Reactions: No Reported Reaction Past Psychological History: Anxiety, Depression Smoking Status: Former smoker Past Alcohol Use History: Abuse, Daily, Heavy Past Drug Use History: None Reported - Past Family History Father Additional Family Medical History / Comment(s): Spleen CA Mother Family Medical History: COPD Additional Family Medical History / Comment(s): empysema General Exam General appearance: alert, in no apparent distress Head exam: Present: atraumatic, normocephalic, normal inspection Eye exam: Present: normal appearance, EOMI Neck exam: Present: normal inspection, full ROM Respiratory exam: Present: normal lung sounds bilaterally. Absent: respiratory distress, wheezes, rales, rhonchi, stridor Cardiovascular Exam: Present: regular rate, normal rhythm, normal heart sounds. Absent: systolic murmur, diastolic murmur, rubs, gallop, clicks GI/Abdominal exam: Present: soft. Absent: distended, tenderness, guarding, rebound, rigid Neurological exam: Present: alert, oriented X3 Psychiatric exam: Present: normal affect, normal mood Skin exam: Present: warm, dry, intact, normal color. Absent: rash Course Vital Signs 08/01/23 08/01/23 00:20 01:52 Temperature 98.0 F Pulse Rate 100 90 Respiratory 18 18 Rate Blood Pressure 105/85 110/73 O2 Sat by Pulse 96 95 Oximetry Medical Decision Making - Medical Decision Making Was pt. sent in by a medical professional or institution (, PA, CATALYST CONCENTRATION OPERATOR, urgent care, hospital, or group home...) When possible be specific @ -No Did you speak to anyone other than the patient for history (EMS, parent, family, police, friend...)? What history was obtained from this source @ -No Did you review nursing and triage notes (agree or disagree)? Why? @ -I reviewed and agree with nursing and triage notes Were old charts reviewed (outside hosp., previous admission, EMS record, old EKG, old radiological studies, urgent care reports/EKG's, group home records)? Report findings @ -Patient's most recent visit and computed tomography scan from 07/24were reviewed Differential Diagnosis (chest pain, altered mental status, abdominal pain women, abdominal pain men, vaginal bleeding, weakness, fever, dyspnea, syncope, headache, dizziness, GI bleed, back pain, seizure, CVA, palpatations, mental health, musculoskeletal)? @ -MDM Differential Abdominal Pain Women: Appendicitis, Cholecystitis, diverticulosis, ischemic bowel, pancreatitis, hepatitis, UTI, gastroenteritis, AAA, incarcerated hernia, bowel obstruction, constipation, inflammatory bowel, hepatitis, peptic ulcer disease, splenic infar ction, perforated viscus, vulvitis, ovarian torsion, PID, kidney stone, placenta abruption... This is not meant to be an all-inclusive list EKG interpreted by me (3pts min.). @ -As above X-rays interpreted by me (1pt min.). @ -None done CT interpreted by me (1pt min.). @ -None done U/S interpreted by me (1pt. min.). @ -None done What testing was considered but not performed or refused? (CT, X-rays, U/S, labs)? Why? @ -None What meds were considered but not given or refused? Why? @ -None Did you discuss the management of the patient with other professionals (professionals i.e. , PA, CATALYST CONCENTRATION OPERATOR, lab, RT, psych nurse, social media marketing manager, squaring machine operator, teacher, deck officer, casey saw operator)? Give summary @ -No Was smoking cessation discussed for >3mins.? @ -No Was critical care preformed (if so, how long)? @ -No Were there social determinants of health that impacted care today? How? (Homelessness, low income, unemployed, alcoholism, drug addiction, transportation, low edu. Level, literacy, decrease access to med. care, residential, rehab)? @ -No Was there de-escalation of care discussed even if they declined (Discuss DNR or withdrawal of care, Hospice)? DNR status @ -No What co-morbidities impacted this encounter? (DM, HTN, Smoking, COPD, CAD, Cancer, CVA, ARF, Chemo, Hep., AIDS, mental health diagnosis, sleep apnea, morbid obesity)? @ -None Was patient admitted / discharged? Hospital course, mention meds given and route, prescriptions, significant lab abnormalities, going to OR and other pertinent info. @ -58-year-old female presenting with chief complaint of pain to the ostomy site. Patient has had this pain ongoing for 4 months, no changes in the pain. History and physical examination are conducted. Patient reports resolution of her symptoms after Zofran and Dilaudid. She would like to be discharged home. She is to follow-up with her surgeon, she states that she is getting her ostomy reversed in August. Follow-up with PCP. Report back to ER with any new or worsening symptoms. Discussed return parameters and answered all questions. Patient conveyed verbal understanding and agreed to the plan. I discussed this case in detail with my attending Dr. Johnson Undiagnosed new problem with uncertain prognosis? @ -No Drug Therapy requiring intensive monitoring for toxicity (Heparin, Nitro, Insulin, Cardizem)? @ -No Were any procedures done? @ -No Diagnosis/symptom? @ -Chronic abdominal pain Acute, or Chronic, or Acute on Chronic? @ -Acute Uncomplicated (without systemic symptoms) or Complicated (systemic symptoms)? @ -uncomplicated Side effects of treatment? @ -No Exacerbation, Progression, or Severe Exacerbation? @ -No Poses a threat to life or bodily function? How? (Chest pain, USA, SD, pneumonia, PE, COPD, DKA, ARF, appy, cholecystitis, CVA, Diverticulitis, Homicidal, Suicidal, threat to staff... and all critical care pts) @ -No - Lab Data Result diagrams: 08/01/23 00:57 08/01/23 00:57 Lab Results 08/01/23 08/01/23 Range/Units 00:57 00:57 WBC 4.7 (3.8-10.6) k/uL RBC 3.81 (3.80-5.40) m/uL Hgb 10.4 L (11.4-16.0) gm/dL Hct 32.7 L (34.0-46.0) % MCV 86.0 (80.0-100.0) fL MCH 27.4 (25.0-35.0) pg MCHC 31.8 (31.0-37.0) g/dL RDW 16.7 H (11.5-15.5) % Plt Count 102 L D (150-450) k/uL MPV 8.6 Neutrophils % 58 % Lymphocytes % 30 % Monocytes % 7 % Eosinophils % 1 % Basophils % 0 % Neutrophils # 2.8 (1.3-7.7) k/uL Lymphocytes # 1.4 (1.0-4.8) k/uL Monocytes # 0.3 (0-1.0) k/uL Eosinophils # 0.1 (0-0.7) k/uL Basophils # 0.0 (0-0.2) k/uL Hypochromasia Slight Anisocytosis Slight Sodium 130 L (137-145) mmol/L Potassium 3.2 L (3.5-5.1) mmol/L Chloride 97 L (98-107) mmol/L Carbon Dioxide 18 L (22-30) mmol/L Anion Gap 15 mmol/L BUN 4 L (7-17) mg/dL Creatinine 0.58 (0.52-1.04) mg/dL Est GFR (CKD-EPI)AfAm >90 (>60 ml/min/1.73 sqM) Est GFR (CKD-EPI)NonAf >90 (>60 ml/min/1.73 sqM) Glucose 102 H (74-99) mg/dL Calcium 9.2 (8.4-10.2) mg/dL Total Bilirubin 0.5 (0.2-1.3) mg/dL AST 84 H (14-36) U/L ALT 43 H (4-34) U/L Alkaline Phosphatase 83 (38-126) U/L Total Protein 6.6 (6.3-8.2) g/dL Albumin 4.1 (3.5-5.0) g/dL Disposition Clinical Impression: Chronic abdominal pain Disposition: HOME SELF-CARE Condition: Good Instructions (If sedation given, give patient instructions): Abdominal Pain (ED) Additional Instructions: Follow-up with PCP and surgeon. Report back to ER with any new or worsening symptoms. Is patient prescribed a controlled substance at d/c from ED?: No Referrals: Constantine Figueroa DO [Primary Care Provider] - 1-2 days Time of Disposition: 01:37
[2023-08-01 01:53] VITALS: BP 110/73; PULSE 90
== END 2023-08-01 01:55 | disposition home or self-care (01) ==
LOC: EC 00:16
DX: G89.29 Other chronic pain (principal); R10.9 Unspecified abdominal pain; I10 Essential (primary) hypertension; F41.9 Anxiety disorder, unspecified; F32.A Depression, unspecified; Z79.01 Long term (current) use of anticoagulants; Z79.899 Other long term (current) drug therapy; Z88.1 Allergy status to other antibiotic agents; Z87.891 Personal history of nicotine dependence
CPT/HCPCS: 36415; 80053; 85025; 99285; 96374; 96375; J2405; J1170

== ENCOUNTER 2024-01-10 12:29 | Emergency (ER) | payer MEDICARE, OTHER ==
[2024-01-10] MEDS ORDERED: HUMAN PROTHROMBIN COMPLX 500 UNIT/16 ML VIAL IV ONE (12:30)
[2024-01-10] MEDS: SODIUM CHLORIDE 0.9% 500 ML 500 ML IV STA (12:49)
[2024-01-10] MEDS: fentaNYL (PF) 50 MCG/ML 2 ML AMP IVP STA (12:49)
[2024-01-10 12:58] LABS: Glucose,Whole Blood 77 mg/dL (70-110)
[2024-01-10 13:09] LABS: Basophils % (A) 0 %; Eosinophils # (A) 0.1 k/uL (0-0.7); Eosinophils % (A) 3 %; HCT 35.5 % (34.0-46.0); HGB 11.3 gm/dL (11.4-16.0); Lymphocytes # (A) 1.1 k/uL (1.0-4.8); Lymphocytes % (A) 43 %; MCH 29.4 pg (25.0-35.0); MCHC 31.8 g/dL (31.0-37.0); MCV 92.5 fL (80.0-100.0); Mean Platelet Volume 7.8; Monocytes # (A) 0.1 k/uL (0-1.0); Monocytes % (A) 5 %; Neutrophils # (A) 1.1 k/uL (1.3-7.7); Neutrophils % (A) 45 %; Platelet Count 165 k/uL (150-450); RBC 3.84 m/uL (3.80-5.40); RDW 14.8 % (11.5-15.5); WBC 2.5 k/uL (3.8-10.6)
--- NOTE | 2024-01-10 13:13 | XR ---
EXAMINATION TYPE: XR chest 1V portable DATE OF EXAM: 01/10/2024 COMPARISON: 01/08/2023 INDICATION: Trauma, fall TECHNIQUE: Single frontal view of the chest is obtained. FINDINGS: The heart size is normal. The pulmonary vasculature is normal. The lungs are clear. Mediastinum appears normal. No pneumothorax is evident. No displaced rib fractures are identified. IMPRESSION: 1. No acute pulmonary process. 2. No acute posttraumatic changes.
--- NOTE | 2024-01-10 13:14 | XR ---
EXAMINATION TYPE: XR pelvis AP view DATE OF EXAM: 01/10/2024 COMPARISON: CT 07/24/2023 HISTORY: Trauma, fall TECHNIQUE: AP pelvis FINDINGS: No acute displaced fractures are evident. There is a calcification lateral to the femoral h ead was present on the prior CT of 07/24/2023. Symphysis pubis and sacroiliac joints are normal. IMPRESSION: 1. No acute posttraumatic changes radiographically apparent.
[2024-01-10 13:15] LABS: INR 0.9 (<1.2); Prothrombin Time 10.2 sec (10.0-12.5)
[2024-01-10 13:22] LABS: Partial Thromboplastin Time 21.3 sec (22.0-30.0)
[2024-01-10] MEDS: MORPHINE SULFATE 4 MG/ML SYRINGE IVP STA ×2 (13:31→14:48)
[2024-01-10 13:44] LABS: ALT 48 U/L (4-34); African American GFR (CKD) >90 (>60 ml/min/1.73 sqM); Anion Gap 12 mmol/L; Blood Urea Nitrogen 5 mg/dL (7-17); Calcium 8.1 mg/dL (8.4-10.2); Carbon Dioxide 24 mmol/L (22-30); Chloride 107 mmol/L (98-107); Glucose 73 mg/dL (74-99); Non-African American GFR(CKD) >90 (>60 ml/min/1.73 sqM); Sodium 143 mmol/L (137-145); Total Bilirubin 0.9 mg/dL (0.2-1.3)
[2024-01-10 14:02] LABS: AST 118 U/L (14-36); Alkaline Phosphatase 54 U/L (38-126); Potassium 4.6 mmol/L (3.5-5.1)
[2024-01-10] MEDS ORDERED: Kcentra PER PHARMACY 1 EACH MISC MISCELLANE PRN (14:03)
[2024-01-10 14:04] LABS: Alcohol 422 mg/dL
--- NOTE | 2024-01-10 14:08 | CT ---
EXAMINATION TYPE: CT brain adithyaine wo con DATE OF EXAM: 01/10/2024 COMPARISON: 11/25/2022 HISTORY: Fall on thinners CT DLP: 1827 mGycm, Automated exposure control for dose reduction was used. CONTRAST: Patient injected with mL of . CT of the brain is performed utilizing 3 mm thick sections through the posterior fossa and 3 mm thick sections through the remaining calvarium. Study is performed within 24 hours of arrival to the hospital. There is a very vague area of increased density in the right subcortical insula. Series 3 image 32. Correlate with the mechanism of injury. Tiny 0.4 petechial hemorrhage is not entirely excluded. No ad jacent edema is identified. This could be artifact. Consider MRI for additional evaluation. Port was called to the emergency room by Dr. Flanagan by telephone at the time of interpretation. No mass lesion is evident. No acute infarcts are evident. Minimal periventricular white matter chronic appearing microvascular ischemic change may be present. Ventricles and sulci are appropriate for the patient age. Small retention cysts within the maxillary sinuses. Remaining paranasal sinuses and mastoid air cells are clear. IMPRESSIONS: 1. Tiny mild hyperdensity within the right insula could be a intraparenchymal petechial hemorrhage. C orrelate with the mechanism of injury. CT cervical spine. COMPARISON: None CT of the cervical spine is performed in the axial plane at 2 mm thick sections. Reconstructed image s in the coronal, and sagittal plane are reviewed on the computer. No acute fractures are evident. Vertebral body alignment is normal. There is narrowing of disc height C3-4 C4-5 and C6-7. Some posterior disc space narrowing at C4-5 is present. Vertebral body heights are preserved. No spinal canal stenosis is evident. Some mild endplate spurring in the right paracentral region is p resent C3-4. No neural foraminal stenosis is evident. IMPRESSION: 1. No acute osseous abnormality cervical spine. 2. Degenerative disc changes
--- NOTE | 2024-01-10 14:15 | CT ---
EXAMINATION TYPE: CT ChestAbdPelvis w con DATE OF EXAM: 01/10/2024 INDICATION: Pt fall on thinners COMPARISON: CT abdomen pelvis 07/24/2023 CT DLP: 1874.17 mGycm CONTRAST: Performed without Oral Contrast and with IV Contrast, patient injected with 100 mL of Isovue 300. TECHNIQUE: Axial images at 5 mm thick sections. Reconstructed images in the coronal plane. Delayed images through the kidneys. FINDINGS: CT CHEST: Portion of the thyroid visualized is normal. There is a 0.4 cm nodule within the peripheral greater fissure on the right, series 4 image 41. No enlarged mediastinal or hilar adenopathy is evident. The ascending aorta diameter at the level of the main pulmonary artery is 3.5 cm. The main pulmonary artery diameter at the bifurcation is 8.[address] ABDOMEN: There is a small hiatal hernia. There is a contusion within the subcutaneous tissues on the right. This is indistinct and measures ap proximately 9 cm. Example image series 4 image 75. Liver: There is moderate fatty fixation of the liver. Spleen: Normal Pancreas: Normal Adrenal glands: The adrenal glands are normal. Gallbladder: Normal Kidneys: No masses are evident. No hydronephrosis is present. No cysts are present. Delayed images were obtained through the kidneys, which remain unremarkable. Aorta: Vascular calcification is within the aorta. Inferior vena cava: Normal. CT PELVIS: Ostomy is in the left lower quadrant of the pelvis. Loops of bowel within the abdomen and pelvis are normal. There are loops of bowel which are incom pletely distended or lack oral contrast limiting their evaluation. Appendix: Normal as visualized. Urinary bladder: Normal. Genitourinary structures: Uterus is normal. Adnexa are unremarkable. Osseous structures: No suspicious lytic or sclerotic lesions. Chronic calcifications at the right hip . No acute fractures are evident. No displaced rib fractures are identified. IMPRESSION: 1. Large contusion approximately 9 cm right flank. Underlying focal hematoma formation not identified . 2. Acute posttraumatic change is not otherwise apparent within the chest abdomen or pelvis. 3. Moderate fatty infiltration of the liver. 4. Small nodule right major fissure. Follow-up CT chest in 6 months. 5. Small hiatal hernia.
[2024-01-10] MEDS: DEXTROSE 50% SYRINGE 50 ML IVP STA (14:17)
--- NOTE | 2024-01-10 14:18 | CT ---
EXAMINATION TYPE: CT thor lumbar spine w con DATE OF EXAM: 01/10/2024 COMPARISON: None HISTORY: Fall, trauma CT DLP: 1081 mGycm Automated exposure control for dose reduction was used. Contrast: None Technique: Axial images 3 mm thick sections. Reconstructed images in the sagittal plane. FINDINGS: Vertebral body heights are preserved. There is diffuse loss of disc height within the upper thoracic and mid thoracic region. Some degenerative disc change appears to be present L4-5. No compression deformities identified. No obvious spinal canal stenosis. No acute fractures identifie d within the [id number]. IMPRESSION: 1. NO ACUTE OSSEOUS ABNORMALITY POST TRAUMA. 2. DEGENERATIVE DISC CHANGES.
--- NOTE | 2024-01-10 14:20 | ED ---
General Adult HPI - General Chief complaint: Fall Stated complaint: Fall Time Seen by Provider: 01/10/24 12:30 Source: patient, EMS, RN notes reviewed, old records reviewed Mode of arrival: EMS - History of Present Illness Initial comments: Patient is a 58-year-old female with past medical history remarkable for hypertension, DVT on Xarelto, alcohol abuse. Patient fell at home approximately 6 to 8 feet [address] steps. Struck her right forehead on concrete. Denies loss of consciousness. Fall occurred shortly prior to arrival. Is currently complaining of abdominal pain. Does have a colostomy in place. Denies abdominal pain. Does endorse some bilateral hip pain. Denies any other acute complaints at this time. Presents for further evaluation at this time. C ervical collar is in place. Presents as a level 2 trauma activation. - Related Data Home Medications Medication Instructions Recorded Confirmed Thiamine [Vitamin B-1] 100 mg PO DAILY 11/23/22 01/10/24 Venlafaxine HCl [Effexor XR] 225 mg PO DIRECTED 04/26/23 01/10/24 traZODone HCL [Desyrel] 100 mg PO HS PRN 04/26/23 01/10/24 Rivaroxaban [Xarelto] 20 mg PO DIRECTED 06/22/23 01/10/24 Gabapentin [Neurontin] 300 mg PO DIRECTED 01/10/24 01/10/24 Metoprolol Tartrate [Lopressor] 50 mg PO DAILY 01/10/24 01/10/24 Allergies Allergy/AdvReac Type Severity Reaction Status Date / Time bacitracin Allergy Rash/Hives Verified 01/10/24 13:50 cephalexin [From Keflex] Allergy Itching Verified 01/10/24 13:50 Review of Systems ROS Statement: Those systems with pertinent positive or pertinent negative responses have been documented in the HPI. Review of Systems: CONST: Denies fever EYES: Denies blurry vision ENT: Denies nasal congestion C/V: Denies Chest pain RESP: Denies shortness of breath GI: Denies abdominal pain : Denies dysuria SKIN: Denies rash. MSK: Endorses hip pain NEURO: Endorses headache ROS Other: All systems not noted in ROS Statement are negative. Past Medical History Past Medical History: Deep Vein Thrombosis (DVT), Hypertension Additional Past Medical History / Comment(s): concussion, ETOH abuse History of Any Multi-Drug Resistant Organisms: None Reported Past Surgical History: No Surgical Hx Reported Additional Past Surgical History / Comment(s): jaw surgery, colostomy 01/2023 Past Anesthesia/Blood Transfusion Reactions: No Reported Reaction Past Psychological History: Anxiety, Depression Smoking Status: Former smoker Past Alcohol Use History: Abuse, Daily Past Drug Use History: None Reported - Past Family History Father Additional Family Medical History / Comment(s): Spleen CA Mother Family Medical History: COPD Additional Family Medical History / Comment(s): empysema General Exam - General Exam Comments Initial Comments: General: Appears in no acute distress. HEAD: Abrasion over the right forehead. Negative Barajas sign. Negative raccoon eyes. EYES: PERRLA, EOMI, conjunctiva normal, no discharge. Pupils are 3 mm and equal bilaterally. ENT: Hearing grossly intact, normal oropharynx. RESPIRATORY: Clear breath sounds bilaterally. No wheezes, rales, or rhonchi. C/V: Regular rate and rhythm. S1 and S2 auscultated, no edema, peripheral pulses 2+ and intact throughout ABD: Abd is soft, nontender, nondistended. Patient does have a colostomy bag present. EXT: Normal range of motion, no obvious deformity. Pelvis is stable. No midline cervical, thoracic, lumbar spine tenderness to palpation. No step-offs or deformities of the spine. SKIN: Abrasions over the right abdomen, right hand. NEURO: Alert and oriented x 4. Cranial nerves II-XII intact. No focal sensory or strength deficits. GCS of 15. Course Vital Signs 01/10/24 01/10/24 01/10/24 12:30 12:45 12:52 Temperature 97.9 F 97.9 F Pulse Rate 80 80 71 Respiratory 18 16 17 Rate Blood Pressure 127/80 120/80 122/82 O2 Sat by Pulse 92 L 96 95 Oximetry 01/10/24 01/10/24 01/10/24 13:00 13:15 13:30 Temperature 98.0 F 97.6 F 97.8 F Pulse Rate 82 73 73 Respiratory 18 17 16 Rate Blood Pressure 112/82 112/73 112/74 O2 Sat by Pulse 96 96 97 Oximetry 01/10/24 01/10/24 01/10/24 13:45 14:00 14:30 Temperature 98.2 F 98.1 F 97.9 F Pulse Rate 74 76 71 Respiratory 16 18 18 Rate Blood Pressure 108/68 105/58 124/79 O2 Sat by Pulse 95 95 96 Oximetry 01/10/24 14:45 Temperature 98.0 F Pulse Rate 72 Respiratory 17 Rate Blood Pressure 126/83 O2 Sat by Pulse 98 Oximetry Medical Decision Making - Medical Decision Making Was pt. sent in by a medical professional or institution (, PA, EQUIPMENT SERVICE TECHNICIAN, urgent care, hospital, or long-term...) When possible be specific @ -No Did you speak to anyone other than the patient for history (EMS, parent, family, police, friend...)? What history was obtained from this source @ -EMS provided patient's history of fall. Did you review nursing and triage notes (agree or disagree)? Why? @ -I reviewed and agree with nursing and triage notes Were old charts reviewed (outside hosp., previous admission, EMS record, old EKG, old radiological studies, urgent care reports/EKG's, long-term records)? Report findings @ -Old charts reviewed Differential Diagnosis (chest pain, altered mental status, abdominal pain women, abdominal pain men, vaginal bleeding, weakness, fever, dyspnea, syncope, headach e, dizziness, GI bleed, back pain, seizure, CVA, palpatations, mental health, musculoskeletal)? @ -Intracranial injury, intrathoracic or intra-abdominal injury, musculoskeletal injury. This list is not all inclusive. EKG interpreted by me (3pts min.). @ -As above X-rays interpreted by me (1pt min.). @ -X-ray pelvis x-ray negative for any obvious acute process. CT interpreted by me (1pt min.). @ -CT brain revealed a possible small intraparenchymal hemorrhage in the right insula region. This read was conveyed to me by radiology. In the setting of a significant fall on blood thinners, concern is for brain bleed at this time. CT cervical spine unremarkable. CT abdomen pelvis reveals a right flank contusion approximately 9 cm with no hematoma formation. No other obvious findings. CT lumbar and thoracic spine negative for any obvious injuries. U/S interpreted by me (1pt. min.). @ -None done What testing was considered but not performed or refused? (CT, X-rays, U/S, labs)? Why? @ -None What meds were considered but not given or refused? Why? @ -None Did you discuss the management of the patient with other professionals (professionals i.e. , PA, EQUIPMENT SERVICE TECHNICIAN, lab, RT, psych nurse, geriatric social work professor, geologist, teacher, staff combat information center officer, trimming caser)? Give summary @ -Discussed with trauma on-call Dr. Davis who was in agreement with workup. I did update him on the findings on CT who recommended transferring to higher level facility. I spoke with transfer team at [facility], Dr. Gonzalez who accepted the transfer. Was smoking cessation discussed for >3mins.? @ -No Was critical care preformed (if so, how long)? @ -Yes, 42 minutes Were there social determinants of health that impacted care today? How? (Homelessness, low income, unemployed, alcoholism, drug addiction, transportation, low edu. Level, literacy, decrease access to med. care, halfway, rehab)? @ -No Was there de-escalation of care discussed even if they declined (Discuss DNR or withdrawal of care, Hospice)? DNR status @ -No What co-morbidities impacted this encounter? (DM, HTN, Smoking, COPD, CAD, Cancer, CVA, ARF, Chemo, Hep., AIDS, mental health diagnosis, sleep apnea, morbid obesity)? @ -On blood thinners Was patient admitted / discharged? Hospital course, mention meds given and route, prescriptions, significant lab abnormalities, going to OR and other pertinent info. @ -Patient presents as a fall on blood thinners. Level 2 trauma activation. ATLS protocol will be followed. Patient has abrasion over the right upper abdomen, right hand, right forehead. No other obvious injuries. No significant abdominal pain. Vital signs are within acceptable limits. Patient will be given IV fluids, as well as analgesia medications. She is up-to-date on her tetanus within the last 3 years. Due to the nature of the fall, we will obtain CT imaging of the chest and pelvis in addition to spine and head. Patient in agreement with this plan. Patient is obviously intoxicated with alcohol. Buccal collar will maintain in place. EKG shows no signs of acute ischemia. X-ray is unremarkable. Labs remarkable for an elevated lactic acid at 3.8 likely secondary to alcohol intoxication whi ch is 422. Borderline hypoglycemia and patient will be given an amp of D50. CT brain reveals a possible pinpoint intraparenchymal hemorrhage of 0.4 cm in size in the right insular region. This read was conveyed to me by radiology. Chest and pelvis x-ray unremarkable. CT abdomen pelvis reveals a right flank contusion approximately 9 cm with no hematoma formation. No other obvious findings. CT lumbar and thoracic spine negative for any obvious injuries. Due to the findings on CT brain, patient will be administered Kcentra as well as TXA to reverse her blood thinner Xarelto. I spoke with on-call trauma, Dr. Rachel who recommended transfer to higher level of care. I spoke with transfer team at [facility], Dr. Gonzalez who accepted the transfer. Patient will be transferred in serious condition. Undiagnosed new problem with uncertain prognosis? @ -No Drug Therapy requiring intensive monitoring for toxicity (Heparin, Nitro, Insulin, Cardizem)? @ -No Were any procedures done? @ -No Diagnosis/symptom? @ -Fall on blood thinners, right abdominal contusion, intraparenchymal hemorrhage, Alcohol intoxication Acute, or Chronic, or Acute on Chronic? @ -Acute Uncomplicated (without systemic symptoms) or Complicated (systemic symptoms)? @ -Complicated Side effects of treatment? @ -No Exacerbation, Progression, or Severe Exacerbation? @ -No Poses a threat to life or bodily function? How? (Chest pain, [place], [place], pneumonia, PE, COPD, DKA, ARF, appy, cholecystitis, CVA, Diverticulitis, Homicidal, Suicidal, threat to staff... and all critical care pts) @ -Yes - Lab Data Result diagrams: 01/10/24 12:50 01/10/24 12:50 Lab Results 01/10/24 01/10/24 01/10/24 Range/Units 12:50 12:50 12:50 WBC 2.5 L (3.8-10.6) k/uL RBC 3.84 (3.80-5.40) m/uL Hgb 11.3 L (11.4-16.0) gm/dL Hct 35.5 (34.0-46.0) % MCV 92.5 (80.0-100.0) fL MCH 29.4 (25.0-35.0) pg MCHC 31.8 (31.0-37.0) g/dL RDW 14.8 (11.5-15.5) % Plt Count 165 (150-450) k/uL MPV 7.8 Neutrophils % 45 % Lymphocytes % 43 % Monocytes % 5 % Eosinophils % 3 % Basophils % 0 % Neutrophils # 1.1 L (1.3-7.7) k/uL Lymphocytes # 1.1 (1.0-4.8) k/uL Monocytes # 0.1 (0-1.0) k/uL Eosinophils # 0.1 (0-0.7) k/uL Basophils # 0.0 (0-0.2) k/uL PT 10.2 (10.0-12.5) sec INR 0.9 (<1.2) APTT 21.3 L (22.0-30.0) sec Sodium 143 (137-145) mmol/L Potassium 4.6 (3.5-5.1) mmol/L Chloride 107 (98-107) mmol/L Carbon Dioxide 24 (22-30) mmol/L Anion Gap 12 mmol/L BUN 5 L (7-17) mg/dL Creatinine 0.51 L (0.52-1.04) mg/dL Est GFR (CKD-EPI)AfAm >90 (>60 ml/min/1.73 sqM) Est GFR (CKD-EPI)NonAf >90 (>60 ml/min/1.73 sqM) Glucose 73 L (74-99) mg/dL POC Glucose (mg/dL) (70-110) mg/dL POC Glu Dental Claims Processor ID Lactic Ac Sepsis Rflx Plasma Lactic Acid Antoine (0.7-2.0) mmol/L Calcium 8.1 L (8.4-10.2) mg/dL Total Bilirubin 0.9 (0.2-1.3) mg/dL AST 118 H (14-36) U/L ALT 48 H (4-34) U/L Alkaline Phosphatase 54 (38-126) U/L Total Protein 7.0 (6.3-8.2) g/dL Albumin 4.0 (3.5-5.0) g/dL Serum Alcohol 422 H* mg/dL Blood Type Blood Type Recheck Bld Type Recheck Status Antibody Screen Antibody Identification Direct Antiglob Test Spec Expiration Date 04/29/24 04/29/24 04/29/24 Range/Units 12:50 12:50 12:57 WBC (3.8-10.6) k/uL RBC (3.80-5.40) m/uL Hgb (11.4-16.0) gm/dL Hct (34.0-46.0) % MCV (80.0-100.0) fL MCH (25.0-35.0) pg MCHC (31.0-37.0) g/dL RDW (11.5-15.5) % Plt Count (150-450) k/uL MPV Neutrophils % % Lymphocytes % % Monocytes % % Eosinophils % % Basophils % % Neutrophils # (1.3-7.7) k/uL Lymphocytes # (1.0-4.8) k/uL Monocytes # (0-1.0) k/uL Eosinophils # (0-0.7) k/uL Basophils # (0-0.2) k/uL PT (10.0-12.5) sec INR (<1.2) APTT (22.0-30.0) sec Sodium (137-145) mmol/L Potassium (3.5-5.1) mmol/L Chloride (98-107) mmol/L Carbon Dioxide (22-30) mmol/L Anion Gap mmol/L BUN (7-17) mg/dL Creatinine (0.52-1.04) mg/dL Est GFR (CKD-EPI)AfAm (>60 ml/min/1.73 sqM) Est GFR (CKD-EPI)NonAf (>60 ml/min/1.73 sqM) Glucose (74-99) mg/dL POC Glucose (mg/dL) 77 (70-110) mg/dL POC Glu Dental Claims Processor ID Edilia Mock Lactic Ac Sepsis Rflx Plasma Lactic Acid Antoine 3.8 H* (0.7-2.0) mmol/L Calcium (8.4-10.2) mg/dL Total Bilirubin (0.2-1.3) mg/dL AST (14-36) U/L ALT (4-34) U/L Alkaline Phosphatase (38-126) U/L Total Protein (6.3-8.2) g/dL Albumin (3.5-5.0) g/dL Serum Alcohol mg/dL Blood Type B Positive Blood Type Recheck No Previous Record Bld Type Recheck Status CABO Indicated Antibody Screen POSITIVE Antibody Identification Not Reportable Direct Antiglob Test Negative Spec Expiration Date 01/13/2024 - 234901/10/24 Range/Units 13:23 WBC (3.8-10.6) k/uL RBC (3.80-5.40) m/uL Hgb (11.4-16.0) gm/dL Hct (34.0-46.0) % MCV (80.0-100.0) fL MCH (25.0-35.0) pg MCHC (31.0-37.0) g/dL RDW (11.5-15.5) % Plt Count (150-450) k/uL MPV Neutrophils % % Lymphocytes % % Monocytes % % Eosinophils % % Basophils % % Neutrophils # (1.3-7.7) k/uL Lymphocytes # (1.0-4.8) k/uL Monocytes # (0-1.0) k/uL Eosinophils # (0-0.7) k/uL Basophils # (0-0.2) k/uL PT (10.0-12.5) sec INR (<1.2) APTT (22.0-30.0) sec Sodium (137-145) mmol/L Potassium (3.5-5.1) mmol/L Chloride (98-107) mmol/L Carbon Dioxide (22-30) mmol/L Anion Gap mmol/L BUN (7-17) mg/dL Creatinine (0.52-1.04) mg/dL Est GFR (CKD-EPI)AfAm (>60 ml/min/1.73 sqM) Est GFR (CKD-EPI)NonAf (>60 ml/min/1.73 sqM) Glucose (74-99) mg/dL POC Glucose (mg/dL) (70-110) mg/dL POC Glu Dental Claims Processor ID Lactic Ac Sepsis Rflx Y Plasma Lactic Acid Antoine (0.7-2.0) mmol/L Calcium (8.4-10.2) mg/dL Total Bilirubin (0.2-1.3) mg/dL AST (14-36) U/L ALT (4-34) U/L Alkaline Phosphatase (38-126) U/L Total Protein (6.3-8.2) g/dL Albumin (3.5-5.0) g/dL Serum Alcohol mg/dL Blood Type Blood Type Recheck Bld Type Recheck Status Antibody Screen Antibody Identification Direct Antiglob Test Spec Expiration Date - EKG Data -: EKG Interpreted by Me EKG Comments: 12-lead Electrocardiogram Interpretation Note EKG was reviewed and interpreted by myself. 12-lead ECG performed at 1250 is interpreted by me as revealing normal sinus rhythm at a rate of 73 beats per minute. [place] is normal. ID interval is 147 ms, QRS duration is 90 ms, QTc is 442 ms.. There were no ST or T wave abnormalities to suggest myocardial ischemia or injury. R wave progression across the precordium was satisfactory. By my interpretation this EKG is non-diagnostic for acute ischemia. Critical Care Time Critical Care Time: Yes Total Critical Care Time: 42 Disposition Clinical Impression: Fall, Abdominal wall contusion, Alcohol intoxication, Intraparenchymal hemorrhage of brain Disposition: OTHER INSTITUTION NOT DEFINED Condition: Serious Referrals: Constantine Figueroa DO [Primary Care Provider] - 1-2 days Time of Disposition: 14:20 - Out of Hospital Transfer - Req. Specs Out of Hospital Transfer - Requested Specifics: Other Emergency Center (Transferred to [facility] for escalation of care for intraparenchymal bleed. Dr. Gonzalez accepted.)
[2024-01-10] MEDS: TRANEXAMIC 1,000 MG/100ML-NACL 1,000 MG in SALINE 1 100ML.BAG IV STA (14:27)
[2024-01-10] MEDS: EMPTY BAG 1 BAG with HUMAN PROTHROMBIN COMPLX 2,140 UNIT IV ONE (14:32)
[2024-01-10] MEDS: TRANEXAMIC ACID 1,000 MG in SODIUM CHLORIDE 0.9% 250 ML IV ONE (14:42)
[2024-01-10 15:19] VITALS: BP 126/83; PULSE 72; RESP 17; TEMP 98
== END 2024-01-10 14:55 | disposition other institution (70) ==
LOC: EC 12:29
DX: S30.1XXA Contusion of abdominal wall, initial encounter (principal); S06.300A Unspecified focal traumatic brain injury without loss of consciousness, initial encounter; F10.129 Alcohol abuse with intoxication, unspecified; Z87.891 Personal history of nicotine dependence; Z88.1 Allergy status to other antibiotic agents; W17.89XA Other fall from one level to another, initial encounter
CPT/HCPCS: 96374; 96375; 96361; 99291; 96376; 36415; 93005; 86900; 86901; 80053; 83605; 85025; 85610; 85730; 86850; 86870; 86880; 72170; 71045; 72129; 72125; 72132; 70450; 71260; 74177; G0480; J2270; J3010; J7168; Q9967; 80320; 99285

== ENCOUNTER 2024-03-19 18:33 | Observation (INO) | payer MEDICARE, OTHER ==
[2024-03-19] MEDS ORDERED: LORazepam 2 MG/ML INJ IV PRN (18:53)
[2024-03-19] MEDS ORDERED: LORazepam 1 MG TAB PO PRN ×3 (18:53)
--- NOTE | 2024-03-19 18:58 | ED ---
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) Previous Visits for Alcohol Intoxication?: Yes Recent Trauma: Yes Associated Symptoms: denies other symptoms Treatments Prior to Arrival: none Chronic Alcohol Use: Yes - Related Data Home Medications Medication Instructions Recorded Confirmed No Known Home Medications 03/19/24 03/19/24 Allergies Allergy/AdvReac Type Severity Reaction Status Date / Time bacitracin Allergy Rash/Hives Verified 03/19/24 19:48 cephalexin [From Keflex] Allergy Itching Verified 03/19/24 19:48 Review of Systems ROS Statement: Those systems with pertinent positive or pertinent negative responses have been documented in the HPI. ROS Other: All systems not noted in ROS Statement are negative. Past Medical History Past Medical History: Deep Vein Thrombosis (DVT), Hypertension Additional Past Medical History / Comment(s): concussion History of Any Multi-Drug Resistant Organisms: None Reported Past Surgical History: No Surgical Hx Reported Additional Past Surgical History / Comment(s): jaw surgery, colostomy 01/2023 Past Anesthesia/Blood Transfusion Reactions: No Reported Reaction Past Psychological History: Anxiety, Depression Past Alcohol Use History: Abuse, Daily, Heavy - Past Family History Father Additional Family Medical History / Comment(s): Spleen CA Mother Family Medical History: COPD Additional Family Medical History / Comment(s): empysema General Exam Limitations: no limitations General appearance: appears intoxicated, anxious Head exam: Present: atraumatic, normocephalic, normal inspection Eye exam: Present: normal appearance, PERRL, EOMI. Absent: scleral icterus, conjunctival injection, periorbital swelling ENT exam: Present: normal exam, mucous membranes moist Neck exam: Present: normal inspection. Absent: tenderness, meningismus, lymphadenopathy Respiratory exam: Present: normal lung sounds bilaterally. Absent: respiratory distress, wheezes, rales, rhonchi, stridor Cardiovascular Exam: Present: regular rate, normal rhythm, normal heart sounds. Absent: systolic murmur, diastolic murmur, rubs, gallop, clicks GI/Abdominal exam: Present: soft, normal bowel sounds. Absent: distended, tenderness, guarding, rebound, rigid Extremities exam: Present: normal inspection, full ROM, normal capillary refill. Absent: tenderness, pedal edema, joint swelling, calf tenderness Back exam: Present: normal inspection Neurological exam: Present: alert, oriented X3, CN II-XII intact Psychiatric exam: Present: normal affect, normal mood Skin exam: Present: warm, dry, intact, normal color. Absent: rash Course Vital Signs 03/19/24 18:36 Temperature 97.9 F Pulse Rate 86 Respiratory 18 Rate Blood Pressure 125/90 O2 Sat by Pulse 92 L Oximetry - Reevaluation(s) Reevaluation #1: 03/19/24 20:11 Record is reviewed Reevaluation #2: 03/19/24 20:11 There is no change in symptoms here in the ER Reevaluation #3: 03/19/24 20:11 Informed of results and questions answered Reevaluation #4: Was pt. sent in by a medical professional or institution (, PA, MARKER MACHINE, urgent care, hospital, or [facility]...) When possible be specific @ -no Did you speak to anyone other than the patient for history (EMS, parent, family, police, friend...)? What history was obtained from this source @ -no Did you review nursing and triage notes (agree or disagree)? Why? @ -agree Are old charts reviewed (outside hosp., previous admission, EMS record, old EKG, old radiological studies, urgent care reports/EKG's, [facility] records)? Report findings @ -yes Differential Diagnosis (chest pain, altered mental status, abdominal pain women, abdominal pain men, vaginal bleeding, weakness, fever, dyspnea, syncope, headache, dizziness, GI bleed, back pain, seizure, CVA, palpatations, mental health, musculoskeletal)? @ -prior EKG interpreted by me (3pts min.). @ -yes X-rays interpreted by me (1pt min.). @ -yes negative for acute disease CT interpreted by me (1pt min.). @ -no U/S interpreted by me (1pt. min.). @ -no What testing was considered but not performed or refused? (CT, X-rays, U/S, labs)? Why? @ -none What meds were considered but not given or refused? Why? @ -none Did you discuss the management of the patient with other professionals (professionals i.e. , PA, MARKER MACHINE, lab, RT, psych nurse, social sciences instructor, classroom instructor, teacher, small business banking officer, case management social worker)? Give summary @ -no Was smoking cessation discussed for >3mins.? @ -no Was critical care preformed (if so, how long)? @ -no Were there social determinants of health that impacted care today? How? (Homelessness, low income, unemployed, alcoholism, drug addiction, transportation, low edu. Level, literacy, decrease access to med. care, shelter, rehab)? @ -none Was there de-escalation of care discussed even if they declined (Discuss DNR or withdrawal of care, Hospice)? DNR status @ -no What co-morbidities impacted this encounter? (DM, HTN, Smoking, COPD, CAD, Cancer, CVA, ARF, Chemo, Hep., AIDS, mental health diagnosis, sleep apnea, morbid obesity)? @ -none Was patient admitted / discharged? Hospital course, mention meds given and route, prescriptions, significant lab abnormalities, going to OR and other pertinent info. @ - Undiagnosed new problem with uncertain prognosis? @ -no Drug Therapy requiring intensive monitoring for toxicity (Heparin, Nitro, Insulin, Cardizem)? @ -no Were any procedures done? @ -no Diagnosis/symptom? @ - Acute, or Chronic, or Acute on Chronic? @ -Acute Uncomplicated (without systemic symptoms) or Complicated (systemic symptoms)? @ -Complicated Side effects of treatment? @ -no Exacerbation, Progression, or Severe Exacerbation? @ -exacerbation Poses a threat to life or bodily function? How? (Chest pain, [place], [place], pneumonia, PE, COPD, DKA, ARF, appy, cholecystitis, CVA, Diverticulitis, Homicidal, Suicidal, threat to staff... and all critical care pts) @ -yes Reevaluation #5: Differential Altered Mental Status: Hypoglycemia, DKA, hypercapnia, ETOH, overdose, CO poisoning, trauma, myxedema coma, HTN encephalopathy, infection, encephalitis, psychosis, intercranial hemorrhage, hepatic encephalopathy, meningitis, CVA, this is not meant to be an all-inclusive list Differential Mental Health Depression, anxiety, bipolar, psychosis, schizophrenia, borderline personality, situational depression, adjustment disorder, behavioral disorder, brain tumor, malingering, substance abuse, encephalopathy, medication reaction, dementia, hypothyroidism, degenerative neurologic disorder, lupus.... This is not meant to be all-inclusive list - Consultations Consultation #1: Okay with [facility] who agrees to admit this patient Medical Decision Making - Medical Decision Making 58 Female to ER for evaluation of severe alcohol intoxication will admit for pending alcohol withdrawal and depression needs psychiatric evaluation Disposition Clinical Impression: Alcohol intoxication, Depression, Major depressive disorder without psychotic features, Alcohol use disorder, Suicidal ideation Disposition: ADMITTED IP TO THIS [facility] Condition: Serious Is patient prescribed a controlled substance at d/c from ED?: No Referrals: Constantine Figueroa DO [Primary Care Provider] - 1-2 days Time of Disposition: 20:00
[2024-03-19] MEDS: SODIUM CHLORIDE 0.9% 1,000 ML IV STA (19:41)
[2024-03-19] MEDS: SODIUM CHLORIDE 0.9% 500 ML 500 ML IV STA (19:41)
[2024-03-19] MEDS ORDERED: NALOXONE 0.4 MG/ML 1 ML VIAL IV PRN (20:09)
[2024-03-19 20:41] LABS: INR 0.9 (<1.2); Prothrombin Time 10.4 sec (10.0-12.5)
[2024-03-19 20:48] LABS: ALT 92 U/L (4-34); AST 207 U/L (14-36); African American GFR (CKD) >90 (>60 ml/min/1.73 sqM); Albumin 4.1 g/dL (3.5-5.0); Alkaline Phosphatase 64 U/L (38-126); Anion Gap 15 mmol/L; Basophils % (A) 1 %; Blood Urea Nitrogen 4 mg/dL (7-17); Calcium 8.7 mg/dL (8.4-10.2); Carbon Dioxide 20 mmol/L (22-30); Chloride 101 mmol/L (98-107); Eosinophils % (A) 1 %; Glucose 76 mg/dL (74-99); HCT 35.6 % (34.0-46.0); HGB 11.4 gm/dL (11.4-16.0); Lipase 237 U/L (23-300); Lymphocytes # (A) 0.9 k/uL (1.0-4.8); Lymphocytes % (A) 31 %; MCH 29.1 pg (25.0-35.0); MCHC 32.1 g/dL (31.0-37.0); MCV 90.8 fL (80.0-100.0); Magnesium 1.7 mg/dL (1.6-2.3); Mean Platelet Volume 8.3; Monocytes # (A) 0.2 k/uL (0-1.0); Monocytes % (A) 8 %; Neutrophils # (A) 1.6 k/uL (1.3-7.7); Neutrophils % (A) 55 %; Non-African American GFR(CKD) >90 (>60 ml/min/1.73 sqM); Phosphorus 4.2 mg/dL (2.5-4.5); Platelet Count 101 k/uL (150-450); Potassium 4.2 mmol/L (3.5-5.1); RBC 3.92 m/uL (3.80-5.40); RDW 15.2 % (11.5-15.5); Sodium 136 mmol/L (137-145); Total Bilirubin 0.9 mg/dL (0.2-1.3); Total Protein 6.3 g/dL (6.3-8.2)
[2024-03-19 21:03] LABS: Alcohol 459 mg/dL
[2024-03-20] MEDS: SODIUM CHLORIDE 0.9% 1,000 ML IV SCH
[2024-03-20] MEDS: PANTOPRAZOLE 40 MG/10 ML VIAL IV SCH (07:46)
[2024-03-20] MEDS: HYDROmorphone 1 MG/ML 1 ML SYRINGE IVP PRN (09:25)
[2024-03-20] MEDS: LORazepam 2 MG/ML INJ IV PRN ×2 (09:25→15:15)
[2024-03-20 10:51] LABS: ALT 88 U/L (8-44); AST 196 U/L (13-35); Albumin 3.9 g/dL (3.8-4.9); Albumin/Globulin Ratio 2.29 Ratio (1.60-3.17); Alkaline Phosphatase 57 U/L (41-126); Blood Urea Nitrogen 4.3 mg/dL (9.0-27.0); Calcium 8.4 mg/dL (8.7-10.3); Carbon Dioxide 20.1 mmol/L (21.6-31.8); Chloride 104 mmol/L (96-109); Globulin 1.7 g/dL (1.6-3.3); Glucose 72 mg/dL (70-110); Magnesium 1.7 mg/dL (1.5-2.4); Phosphorus 3.6 mg/dL (2.4-5.1); Sodium 141 mmol/L (135-145); Total Bilirubin 0.7 mg/dL (0.3-1.2); Total Protein 5.6 g/dL (6.2-8.2)
[2024-03-20 11:27] LABS: Basophils # (A) 0.02 X 10*3/uL (0.00-0.10); Eosinophils # (A) 0.05 X 10*3/uL (0.04-0.35); Eosinophils % (A) 2.5 %; HCT 31.7 % (37.2-46.3); HGB 10.5 g/dL (12.0-15.0); Immature Platelet Fraction 4.4 % (1.1-6.1); Lymphocytes # (A) 0.78 X 10*3/uL (0.90-5.00); Lymphocytes % (A) 38.4 %; MCH 29.3 pg (27.0-32.0); MCHC 33.1 g/dL (32.0-37.0); MCV 88.5 FL (80.0-97.0); Mean Platelet Volume 9.6 FL (9.5-12.2); Monocytes # (A) 0.22 X 10*3/uL (0.20-1.00); Monocytes % (A) 10.8 %; NRBC Per 100 WBC 0 X 10*3/uL (0.00-0.01); Neutrophils # (A) 0.94 X 10*3/uL (1.80-7.70); Neutrophils % (A) 46.3 %; Platelet Count 78 X 10*3/uL (140-440); RBC 3.58 X 10*6/uL (4.10-5.20); RBC Morphology Normal (Normal); RDW 15.5 % (11.5-14.5); WBC 2.03 X 10*3/uL (4.50-10.00)
[2024-03-20] MEDS: ONDANSETRON 4 MG/2 ML VIAL IVP PRN (13:51)
[2024-03-20] MEDS: traZODone HCL 50 MG TAB PO SCH (21:31)
[2024-03-20] MEDS: LORazepam 0.5 MG TAB PO PRN (22:01)
--- NOTE | 2024-03-20 22:03 | P.HPIM ---
History of Present Illness H&P Date: 03/20/24 Chief Complaint: Alcohol intoxication Patient is a 58-year-old female with a past medical history of hypertension, history of DVT and prior history of colostomy, anxiety/depression, prior history of smoking and heavy alcohol use was brought to the hospital due to severe alco hol intoxication. Patient was also complaining of suicidal thoughts and feeling depressed. Currently patient is drowsy and unable to provide any history. Patient did not complain of any chest pain or shortness of breath. Laboratory shows WBC 3.0 hemoglobin 11.4 and platelets 101, sodium 136 potassium 4.2 chloride 101 bicarb is 20 BUN 14 creatinine 0.48. Liver enzymes showed AST 207 ALT 92 and alk phos 64 and serum alcohol level 459. Lipase 237. Review of Systems ROS unobtainable: due to mental status Past Medical History Past Medical History: Deep Vein Thrombosis (DVT), Hypertension Additional Past Medical History / Comment(s): concussion History of Any Multi-Drug Resistant Organisms: None Reported Past Surgical History: No Surgical Hx Reported Additional Past Surgical History / Comment(s): jaw surgery, colostomy 01/2023 Past Anesthesia/Blood Transfusion Reactions: No Reported Reaction Past Psychological History: Anxiety, Depression Smoking Status: Former smoker Past Alcohol Use History: Abuse, Daily, Heavy Additional Past Alcohol Use History / Comment(s): states she drinks 6 beers daily, no other alcoholic beverages Past Drug Use History: None Reported - Past Family History Father Additional Family Medical History / Comment(s): Spleen CA Mother Family Medical History: COPD Additional Family Medical History / Comment(s): empysema Medications and Allergies Home Medications Medication Instructions Recorded Confirmed Type No Known Home Medications 03/19/24 03/19/24 History Allergies Allergy/AdvReac Type Severity Reaction Status Date / Time bacitracin Allergy Rash/Hives Verified 03/19/24 19:48 cephalexin [From Keflex] Allergy Itching Verified 03/19/24 19:48 Physical Exam Vitals: Vital Signs Temp Pulse Pulse Resp BP BP BP 03/20/24 08:00 16 03/20/24 07:00 98.3 F 90 16 128/78 03/20/24 02:12 97.9 F 91 15 109/71 03/20/24 02:00 15 03/19/24 23:40 15 03/19/24 23:09 98.2 F 92 15 115/76 03/19/24 21:36 97 18 130/90 03/19/24 18:36 97.9 F 86 18 125/90 Pulse Ox 03/20/24 08:00 03/20/24 07:00 94 L 03/20/24 02:12 94 L 03/20/24 02:00 03/19/24 23:40 03/19/24 23:09 94 L 03/19/24 21:36 96 03/19/24 18:36 92 L Intake and Output 03/19/24 03/20/24 03/20/24 22:59 06:59 14:59 Other: Voiding Method Toilet Toilet # Voids 1 Weight 99.79 kg 99.79 kg PHYSICAL EXAMINATION: Patient is lying in the bed awake alert oriented but drowsy and lethargic.. HEENT: Normocephalic. Neck is supple. Pupils reactive. Nostrils clear. Oral cavity is moist. Neck reveals no JVD, carotid bruits, or thyromegaly. CHEST EXAMINATION: Trachea is central. Symmetrical expansion. Bibasilar diminished sounds. Lung andujar clear to auscultation and percussion. CARDIAC: Normal S1, S2 with no gallops. No murmurs ABDOMEN: Soft. Bowel sounds normal. No organomegaly. No abdominal bruits. Extremities: reveal no edema. No clubbing or cyanosis Neurologically awake, alert, oriented x 2-3. With well-coordinated movements. No focal deficits noted Skin: No rash or skin lesions. Psychiatric: Coperative. Could not be assessed completely Musculoskeletal: No joint swelling or deformity. Normal range of motion. Results CBC & Chem 7: 03/21/24 06:47 03/21/24 06:47 Labs: Abnormal Lab Results - Last 24 Hours (Table) 03/19/24 03/19/24 03/20/24 Range/Units 19:30 19:30 07:18 WBC 3.0 L 2.03 L (3.8-10.6) k/uL RBC 3.58 L (4.10-5.20) X 10*6/uL Hgb 10.5 L (12.0-15.0) g/dL Hct 31.7 L (37.2-46.3) % RDW 15.5 H (11.5-14.5) % Plt Count 101 L 78 L (150-450) k/uL Neutrophils # 0.94 L (1.80-7.70) X 10*3/uL Lymphocytes # 0.9 L 0.78 L (1.0-4.8) k/uL Sodium 136 L (137-145) mmol/L Carbon Dioxide 20 L (22-30) mmol/L Anion Gap (4.00-12.00) mmol/L BUN 4 L (7-17) mg/dL Creatinine 0.48 L (0.52-1.04) mg/dL BUN/Creatinine Ratio (12.00-20.00) Ratio Calcium (8.7-10.3) mg/dL AST 207 H (14-36) U/L ALT 92 H (4-34) U/L Total Protein (6.2-8.2) g/dL Serum Alcohol 459 H* mg/dL 03/20/24 Range/Units 07:18 WBC (3.8-10.6) k/uL RBC (4.10-5.20) X 10*6/uL Hgb (12.0-15.0) g/dL Hct (37.2-46.3) % RDW (11.5-14.5) % Plt Count (150-450) k/uL Neutrophils # (1.80-7.70) X 10*3/uL Lymphocytes # (1.0-4.8) k/uL Sodium (137-145) mmol/L Carbon Dioxide 20.1 L (22-30) mmol/L Anion Gap 16.90 H (4.00-12.00) mmol/L BUN 4.3 L (7-17) mg/dL Creatinine 0.5 L (0.52-1.04) mg/dL BUN/Creatinine Ratio 8.60 L (12.00-20.00) Ratio Calcium 8.4 L (8.7-10.3) mg/dL AST 196 H (14-36) U/L ALT 88 H (4-34) U/L Total Protein 5.6 L (6.2-8.2) g/dL Serum Alcohol mg/dL Thrombosis Risk Factor Assmnt - DVT/VTE Prophylaxis DVT/VTE Prophylaxis: Pharmacologic Prophylaxis ordered - Choose All That Apply Any of the Below Risk Factors Present?: Yes Each Factor Represents 1 point: Age 41-60 years, Obesity (BMI >25), Swollen legs (current) Other Risk Factors: Yes Each Risk Factor Represents 3 Points: History of DVT/PE Thrombosis Risk Factor Assessment Total Risk Factor Score: 6 Thrombosis Risk Factor Assessment Level: High Risk Assessment and Plan Assessment: Acute alcohol intoxication with level 459 on admission Acute alcohol withdrawal symptoms Suicidal ideation Elevated liver enzymes/alcoholic hepatitis Chronic thrombocytopenia secondary to alcohol abuse Prior history of smoking Hypertension History of DVT Anxiety/depression GI and DVT prophylaxis Plan: Patient will be continued on alcohol withdrawal protocol. Continue with thiamine and multivitamins. Continue IV hydration. Psychiatry was consulted due to suicidal ideation. Continue to follow closely and replace electrolytes. Time with Patient: Greater than 30
--- NOTE | 2024-03-20 22:06 | P.CN ---
Psychiatric Consult - . Consult date: 03/20/24 Consult:: IDENTIFYING DATA: This patient is a 58 yo female who lives alone with no children, and follows up with [facility] for mental health. REASON FOR REFERRAL: Psychiatry was consulted for "depression" HISTORY OF PRESENT ILLNESS: Per ER note, patient presented to the hospital last night on 03/19/24 "This is a 58-year-old female to ER for significant depression and alcohol intoxication severe and significant air intoxication with depression and complaining of suicidal thoughts." Patient's BAL was 459 on arrival at around 7:30 pm on 03/19/24. She is clinically sober at the time of evaluation today at around 4:30 pm today. On evaluation, patient was found resting in bed, was calm and cooperative with assessment. She admits to depressed mood, decreased appetite, anhedonia, difficulty falling and staying asleep, decreased energy, decreased concentration. She denies suicidal ideations, intent or plan. She denies homicidal ideation, intent or plan. She denies any auditory, visual dean ucinations and denies any paranoia or delusions. Patients admits to drinking 6-8 beers per day, and on probing a bit more, she admits she also drinks about a half of pint of vodka daily in addition to the beer, and possibly more. She states she does not have a car so she is limited as to where she can go. She reports she has weekly visits from [facility] at her home. She reports she is supposed to be on Effexor XR and Trazodone but only takes the Trazodone as needed to help her sleep. She states she has been noncompliant with the Effexor for a couple months. She is on CIWA for alcohol withdrawal and withdrawal symptoms appears adequately controlled with PRN Ativan per CIWA protocol. She has required a total of Ativan 5 mg IV so far today. Review of her labs shows pancytopenia with low WBC, RBC, hemoglobin, hct, platelets, neutrophils, lymphocytes. Platelets are very low at 78. Transaminases are elevated AST 196 and ALT 88. PAST PSYCHIATRIC HISTORY: Patient has a a history of admission to [facility] in January 2022, and has been seen by the psychiatry consult service during past medical admissions as well. Past medications: Effexor, Trazodone, Seroquel, Vivitrol, Campral, Gabapentin, Naltrexone, Doxepin, Zyprexa, Valium, Remeron Previous psychiatric hospitalizations on [facility] in January 2022. Outpatient with [facility]; was with Dr. Harrison but reports psychiatrist was changed recently. Patient denies any history of suicide attempts in the past. PAST MEDICAL HISTORY: Past Medical History: Deep Vein Thrombosis (DVT), Hypertension Additional Past Medical History / Comment(s): concussion History of Any Multi-Drug Resistant Organisms: None Reported Past Surgical History: No Surgical Hx Reported Additional Past Surgical History / Comment(s): jaw surgery, colostomy 01/2023 Past Anesthesia/Blood Transfusion Reactions: No Reported Reaction Past Psychological History: Anxiety, Depression Past Alcohol Use History: Abuse, Daily, Heavy ALLERGIES: as per EMR. CHEMICAL DEPENDENCY HISTORY: as per HPI. FAMILY PSYCHIATRIC/SUBSTANCE USE HISTORY: Alcoholism in family SOCIAL HISTORY: , no children, lives alone, unemployed, on SSDI for mental health. MENTAL STATUS EXAM: General Appearance: Patient appears to be stated age, fair hygiene and grooming, wearing hospital gown. Behavior: Patient is calmly lying in bed without any agitated behavior. Fair eye contact. Speech: Patient's speech is fluent and non-pressured. Mood/Affect: Patient reports their mood is "depressed", affect is congruent Suicidality/Homicidality: Patient denies having any suicidal or homicidal id eation intent or plan. Perceptions: Patient denies any visual hallucinations and denies any auditory hallucinations. Though content/process: There is no evidence of any delusional thought content a nd thought process is linear and goal-directed. Memory and concentration: AOX3, grossly intact for the purposes of this session. Can spell "WORLD" backwards Judgment and insight: fair IMPRESSIONS: Alcohol use disorder, severe Alcohol withdrawal Unspecified depressive disorder, r/o MDD vs alcohol-induced depressive disorder Pancytopenia Elevated transaminases PLAN: -At this time patient DOES meet criteria for inpatient psychiatric admission since she is denying suicidal ideation once clinically sober. -Delirium precautions recommended with patient including - avoiding use of narcotics and [employer] sedatives, limit anticholinergic medications when possible, frequent re-orientation, minimize use of restraints, open window shades during the day and close them at night. -Would recommend the following medication changes/additions: --Resume Trazodone at 150 mg QHS for sleep/depression. --Avoid SSRI/SNRI antidepressants at this time due to pancytopenia since some antidepressants, such as Effexor, have been linked to agranulocytosis and pancytopenia. -Recommend hemotology consult and further work-up into pancytopenia. -Repeat CBC with diff ordered for tomorrow morning. Please follow results. -Close monitoring with CIWA protocol with PRN Ativan for alcohol withdrawal. Continue to closely monitor vital signs. -Continue to evaluate safety and initiate 1:1 sitter if safety concerns arise. -best worker to provide patient with outpatient mental health/psychiatry resources for appropriate follow up upon discharge. -Hospital Administrator spoke with patient about substance abuse and the harmful effects on medical and mental health, patient verbally understood and agreed. -best worker to provide patient substance use treatment resources including AA/NA meetings in the community. -best worker to provide patient with access line number to call for inpatient substance rehab. -Communicated plan to patient's nurse. -Will continue to follow along -Please contact with any questions. 03/20/24 22:06
[2024-03-20] MEDS: THIAMINE 100 MG/ML 2 ML VIAL IVP SCH (22:36)
[2024-03-20] MEDS: HEPARIN SODIUM,PORCINE 5,000 UNIT/ML 1 ML VIAL SQ SCH (23:51)
[2024-03-21 07:08] VITALS: TEMP 98.4
[2024-03-21 07:35] LABS: Basophils % (A) 0 %; Eosinophils # (A) 0.1 k/uL (0-0.7); Eosinophils % (A) 2 %; HCT 36.3 % (34.0-46.0); HGB 11.3 gm/dL (11.4-16.0); Lymphocytes # (A) 0.6 k/uL (1.0-4.8); Lymphocytes % (A) 21 %; MCH 28.2 pg (25.0-35.0); MCHC 31.2 g/dL (31.0-37.0); MCV 90.4 fL (80.0-100.0); Mean Platelet Volume 9.8; Monocytes # (A) 0.2 k/uL (0-1.0); Monocytes % (A) 6 %; Neutrophils # (A) 1.9 k/uL (1.3-7.7); Neutrophils % (A) 68 %; RBC 4.01 m/uL (3.80-5.40); RDW 14.8 % (11.5-15.5); WBC 2.7 k/uL (3.8-10.6)
[2024-03-21 07:42] LABS: ALT 76 U/L (4-34); African American GFR (CKD) >90 (>60 ml/min/1.73 sqM); Albumin 3.8 g/dL (3.5-5.0); Albumin/Globulin Ratio 1.7; Anion Gap 10 mmol/L; Blood Urea Nitrogen 3 mg/dL (7-17); Calcium 9.1 mg/dL (8.4-10.2); Carbon Dioxide 24 mmol/L (22-30); Chloride 97 mmol/L (98-107); Globulin 2.3 g/dL; Glucose 89 mg/dL (74-99); Non-African American GFR(CKD) >90 (>60 ml/min/1.73 sqM); Sodium 131 mmol/L (137-145); Total Protein 6.1 g/dL (6.3-8.2)
[2024-03-21 07:52] LABS: AST 119 U/L (14-36); Alkaline Phosphatase 62 U/L (38-126); Potassium 3.9 mmol/L (3.5-5.1)
[2024-03-21 08:24] LABS: Platelet Count 64 k/uL (150-450)
[2024-03-21 08:27] LABS: RBC Morphology Normal
[2024-03-21] MEDS: LORazepam 1 MG TAB PO PRN (11:08)
[2024-03-21 14:33] VITALS: BP 129/84; PULSE 108; RESP 19
== END 2024-03-21 16:05 | disposition home or self-care (01) ==
LOC: EC 18:33 → 6NMEDSUR 20:09
PROVIDERS: ADMIT Hospitalist; ATTEND Hospitalist
DX: F10.229 Alcohol dependence with intoxication, unspecified (principal); F10.239 Alcohol dependence with withdrawal, unspecified; K70.10 Alcoholic hepatitis without ascites; T43.216A Underdosing of selective serotonin and norepinephrine reuptake inhibitors, initial encounter; Z91.128 Patient's intentional underdosing of medication regimen for other reason; D69.59 Other secondary thrombocytopenia; I10 Essential (primary) hypertension; F32.A Depression, unspecified; F41.9 Anxiety disorder, unspecified; Z88.1 Allergy status to other antibiotic agents; Y90.8 Blood alcohol level of 240 mg/100 ml or more; R45.851 Suicidal ideations; E66.9 Obesity, unspecified; Z68.29 Body mass index [BMI] 29.0-29.9, adult; Z86.718 Personal history of other venous thrombosis and embolism; Z87.891 Personal history of nicotine dependence; Z93.3 Colostomy status
CPT/HCPCS: 96376 ×2; 96361 ×2; 96372; 96374; 96375; 99285; 36415; 80053 ×3; 83690; 83735 ×2; 84100 ×2; 85025 ×3; 85610; G0378 ×3; G0480; J2060 ×2; J1644; J3411 ×2; J2405; J1170; J2470 ×2; 80320

== ENCOUNTER 2024-04-12 23:26 | Inpatient (IN) | payer MEDICARE, OTHER ==
[2024-04-12 23:31] LABS: Glucose,Whole Blood 59 mg/dL (70-110)
[2024-04-13 00:09] LABS: African American GFR (CKD) >90 (>60 ml/min/1.73 sqM); Albumin 4.2 g/dL (3.5-5.0); Alkaline Phosphatase 54 U/L (38-126); Anion Gap 19 mmol/L; Blood Urea Nitrogen 7 mg/dL (7-17); Calcium 8.4 mg/dL (8.4-10.2); Glucose 51 mg/dL (74-99); Magnesium 1.7 mg/dL (1.6-2.3); Non-African American GFR(CKD) >90 (>60 ml/min/1.73 sqM); Sodium 140 mmol/L (137-145); Total Bilirubin 0.8 mg/dL (0.2-1.3)
[2024-04-13 00:12] LABS: Basophils % (A) 0 %; Eosinophils # (A) 0.1 k/uL (0-0.7); Eosinophils % (A) 2 %; HCT 36.6 % (34.0-46.0); HGB 12.2 gm/dL (11.4-16.0); Hypochromasia Slight; Lymphocytes # (A) 1.2 k/uL (1.0-4.8); Lymphocytes % (A) 40 %; MCH 29.8 pg (25.0-35.0); MCHC 33.5 g/dL (31.0-37.0); MCV 89.2 fL (80.0-100.0); Mean Platelet Volume 7.2; Monocytes # (A) 0.1 k/uL (0-1.0); Monocytes % (A) 5 %; Neutrophils # (A) 1.5 k/uL (1.3-7.7); Neutrophils % (A) 51 %; RDW 15.1 % (11.5-15.5); WBC 2.9 k/uL (3.8-10.6)
[2024-04-13 00:13] LABS: Platelet Count 79 k/uL (150-450)
[2024-04-13 00:36] LABS: ALT 38 U/L (4-34); AST 86 U/L (14-36); Carbon Dioxide 14 mmol/L (22-30); Chloride 107 mmol/L (98-107); Potassium 4.4 mmol/L (3.5-5.1); Total Protein 6.3 g/dL (6.3-8.2)
--- NOTE | 2024-04-13 00:54 | CT ---
EXAM: CT Head Without Intravenous Contrast CLINICAL HISTORY: ITS.REASON CT Reason: fall injury TECHNIQUE: Axial computed tomography images of the head/brain without intravenous contrast. CTDI is 45.2 mGy and DLP is 1126 mGy-cm. This CT exam was performed using one or more of the following dose reduction techniques: automated exposure control, adjustment of the mA and/or kV according to patient size, and/or use of iterative reconstruction technique. COMPARISON: No relevant prior studies available. FINDINGS: Brain: Age-related cerebral volume loss. Periventricular and subcortical white matter hypoattenuation, consistent with chronic microangiopathy. No acute intracranial hemorrhage. No midline shift or mass effect. Ventricles: Unremarkable. No ventriculomegaly. Bones/joints: Unremarkable. No acute fracture. Soft tissues: Unremarkable. Sinuses: Unremarkable as visualized. No acute sinusitis. Mastoid air cells: Unremarkable as visualized. No mastoid effusion. IMPRESSION: No acute intracranial hemorrhage. No midline shift or mass effect. EXAM: CT Cervical Spine Without Intravenous Contrast CLINICAL HISTORY: ITS.REASON CT Reason: fall injury TECHNIQUE: Axial computed tomography images of the cervical spine without intravenous contrast. CTDI is 11.3 mGy and DLP is 330.7 mGy-cm. This CT exam was performed using one or more of the following dose reduction techniques: automated exposure control, adjustment of the mA and/or kV according to patient size, and/or use of iterative reconstruction technique. COMPARISON: No relevant prior studies available. FINDINGS: The vertebral body heights are maintained. The craniocervical junction is intact. The atlanto-dens interval is maintained. The dens is intact. There is no spondylolisthesis. Multilevel cervical spondylosis and degenerative disc disease. Straightening of the cervical lordosis. The unenhanced neck soft tissues are grossly unremarkable. The visualized lung apices are grossly clear. IMPRESSION: No acute fracture or subluxation of the cervical spine.
[2024-04-13 01:26] LABS: Alcohol 426 mg/dL
[2024-04-13] MEDS ORDERED: NALOXONE 0.4 MG/ML 1 ML VIAL IV PRN (02:29)
[2024-04-13] MEDS: DEXTROSE 50% SYRINGE 50 ML IVP STA (02:35)
[2024-04-13] MEDS: SODIUM CHLORIDE 0.9% 1,000 ML IV SCH (02:41)
[2024-04-13] MEDS ORDERED: LORazepam 2 MG/ML INJ IV PRN ×2 (03:43)
[2024-04-13 04:37] LABS: Glucose,Whole Blood 131 mg/dL (70-110)
--- NOTE | 2024-04-13 07:44 | ED ---
General Adult HPI - General Chief complaint: Fall Stated complaint: Fall Time Seen by Provider: 04/12/24 23:32 Source: EMS Mode of arrival: EMS - History of Present Illness Initial comments: Patient is a 58-year-old woman who arrives by ambulance to have evaluation after she fell at her home. The patient was then too weak to get back up. In addition during the fall she had torn the bag off of her colostomy. She complains of a little bit of localized abdominal pain. She complains of head and neck pain related to the fall. Patient denies other injuries Onset/Timin -: hour(s) Location: head Radiation: non-radiation Quality: aching Consistency: constant Improves with: none Worsens with: none Associated Symptoms: denies other symptoms Treatments Prior to Arrival: none - Related Data Previous Rx's Medication Instructions Recorded Multivitamins, Thera [Multivitamin 1 tab PO DAILY #30 tablet 03/21/24 (formulary)] Thiamine [Vitamin B-1] 100 mg PO DAILY #30 tablet 03/21/24 traZODone HCL [Desyrel] 150 mg PO HS #30 tab 03/21/24 Nystatin 100,000 Unit/gm Powd 1 applic TOPICAL BID #1 each 04/14/24 [Mycostatin Powder] Nystatin-Triamcinolone Oint 1 applic TOPICAL BID 14 Days #15 gm 04/14/24 [Mycolog 100,000-0.1 Unit/gm-% Oint] Pantoprazole [Protonix] 40 mg PO AC-BRKFST #30 tab 04/14/24 Allergies Allergy/AdvReac Type Severity Reaction Status Date / Time bacitracin Allergy Rash/Hives Verified 04/13/24 10:34 cephalexin [From Keflex] Allergy Itching Verified 04/13/24 10:34 Review of Systems ROS Statement: Those systems with pertinent positive or pertinent negative responses have been documented in the HPI. ROS Other: All systems not noted in ROS Statement are negative. Constitutional: Reports: weakness. Denies: fever Eyes: Denies: vision change Respiratory: Denies: cough, dyspnea Cardiovascular: Denies: chest pain, palpitations, edema Gastrointestinal: Denies: abdominal pain, nausea, vomiting, diarrhea Genitourinary: Denies: dysuria, hematuria Musculoskeletal: Denies: back pain Skin: Denies: rash Neurological: Reports: headache, confusion. Denies: weakness, numbness Psychiatric: Denies: suicidal thoughts Past Medical History Past Medical History: Deep Vein Thrombosis (DVT), Hypertension Additional Past Medical History / Comment(s): concussion History of Any Multi-Drug Resistant Organisms: None Reported Past Surgical History: No Surgical Hx Reported Additional Past Surgical History / Comment(s): jaw surgery, colostomy 01/2023 Past Anesthesia/Blood Transfusion Reactions: No Reported Reaction Past Psychological History: Anxiety, Depression Past Alcohol Use History: Abuse, Daily, Heavy - Past Family History Father Additional Family Medical History / Comment(s): Spleen CA Mother Family Medical History: COPD Additional Family Medical History / Comment(s): empysema General Exam General appearance: alert, in no apparent distress, appears intoxicated Head exam: Present: normocephalic, other (Has contusion to the left frontal/temporal area. No palpable deformity moderate tenderness) Eye exam: Present: normal appearance, PERRL, nystagmus. Absent: scleral icterus, conjunctival injection ENT exam: Present: mucous membranes dry Neck exam: Present: normal inspection, tenderness, other (Collar). Absent: meningismus Respiratory exam: Present: normal lung sounds bilaterally. Absent: respiratory distress, wheezes, rales, rhonchi, stridor, accessory muscle use Cardiovascular Exam: Present: regular rate, normal rhythm, normal heart sounds. Absent: systolic murmur, diastolic murmur, rubs, gallop GI/Abdominal exam: Present: soft, other (Left-sided colostomy normal in appearance). Absent: distended, tenderness, guarding, rebound, rigid, mass Extremities exam: Present: normal inspection, normal capillary refill. Absent: pedal edema, calf tenderness Back exam: Present: normal inspection. Absent: CVA tenderness (R), CVA tenderness (L), vertebral tenderness Neurological exam: Present: alert, oriented X3, CN II-XII intact, other (There is some ataxia consistent with intoxication). Absent: motor sensory deficit Skin exam: Present: warm, dry, intact, normal color. Absent: rash Course Vital Signs 04/12/24 04/13/24 04/13/24 23:45 02:30 04:26 Temperature 98.5 F Pulse Rate 81 74 81 Respiratory 20 18 18 Rate Blood Pressure 113/68 122/78 118/79 Blood Pressure [Left Arm] O2 Sat by Pulse 93 L 98 96 Oximetry 04/13/24 04/13/24 04/13/24 06:59 08:29 11:21 Temperature Pulse Rate 80 79 Respiratory 18 16 Rate Blood Pressure 113/72 142/94 Blood Pressure [Left Arm] O2 Sat by Pulse 91 L 91 L 96 Oximetry 04/13/24 14:00 Temperature 98.2 F Pulse Rate Respiratory 20 Rate Blood Pressure Blood Pressure 131/78 [Left Arm] O2 Sat by Pulse 95 Oximetry Medical Decision Making - Medical Decision Making Patient is 58-year-old woman here to have evaluation of fall with left-sided headache as well as being too weak to get up from the floor. The patient is markedly intoxicated. She had CT scan which was and my interpretation negative for acute bony injury, intracranial hemorrhage, cervical spine injury. Was pt. sent in by a medical professional or institution (, PA, [facility], urgent care, hospital, or jail...) When possible be specific @ -[No] Did you speak to anyone other than the patient for history (EMS, parent, family, police, friend...)? What history was obtained from this source @ -[No] Did you review nursing and triage notes (agree or disagree)? Why? @ -[I reviewed and agree with nursing and triage notes] Were old charts reviewed (outside hosp., previous admission, EMS record, old EKG, old radiological studies, urgent care reports/EKG's, jail records)? Report findings @ -[No old charts were reviewed] Differential Diagnosis (chest pain, altered mental status, abdominal pain women, abdominal pain men, vaginal bleeding, weakness, fever, dyspnea, syncope, headache, dizziness, GI bleed, back pain, seizure, CVA, palpatations, mental health, musculoskeletal)? @ -[Differential Musculoskeletal Muscular strain, contusion, ligament sprain, fracture, arthritis, septic arthritis, bursitis, cellulitis, muscle spasm, nerve compression, DVT, arterial occlusion, herpes zoster, electrolyte abnormality, tumor.... This is not meant to be in all inclusive list EKG interpreted by me (3pts min.). @ -[As above] X-rays interpreted by me (1pt min.). @ -[None done] CT interpreted by me (1pt min.). @ -[None done] U/S interpreted by me (1pt. min.). @ -[None done] What testing was considered but not performed or refused? (CT, X-rays, U/S, labs)? Why? @ -[None] What meds were considered but not given or refused? Why? @ -[None] Did you discuss the management of the patient with other professionals (professionals i.e. Dr., PA, [facility], lab, RT, psych nurse, social welfare clerk, butcher, teacher, commanding officer garage, caser shoe parts)? Give summary @ -[Case discussed with admitting physician and treatment recommendations are incorporated, including CIWA protocol Was smoking cessation discussed for >3mins.? @ -[No] Was critical care preformed (if so, how long)? @ -[No] Were there social determinants of health that impacted care today? How? (Homelessness, low income, unemployed, alcoholism, drug addiction, transportation, low edu. Level, literacy, decrease access to med. care, snf, rehab)? @ -[Alcoholism Was there de-escalation of care discussed even if they declined (Discuss DNR or withdrawal of care, Hospice)? DNR status @ -[No] What co-morbidities impacted this encounter? (DM, HTN, Smoking, COPD, CAD, Cancer, CVA, ARF, Chemo, Hep., AIDS, mental health diagnosis, sleep apnea, morbid obesity)? @ -[Alcoholism Was patient admitted / discharged? Hospital course, mention meds given and route, prescriptions, significant lab abnormalities, going to OR and other pertinent info. @ -[See above Undiagnosed new problem with uncertain prognosis? @ -[No] Drug Therapy requiring intensive monitoring for toxicity (Heparin, Nitro, Insulin, Cardizem)? @ -[No] Were any procedures done? @ -[No] Diagnosis/symptom? @ -[Acute alcohol intoxication Acute fall with minor head injury Alcohol intoxication, acute on chronic Acute, or Chronic, or Acute on Chronic? @ -[Acute Uncomplicated (without systemic symptoms) or Complicated (systemic symptoms)? @ -[Complicated by fall Side effects of treatment? @ -[No] Exacerbation, Progression, or Severe Exacerbation? @ -[No] Poses a threat to life or bodily function? How? (Chest pain, [place], [place], pneumonia, PE, COPD, DKA, ARF, appy, cholecystitis, CVA, Diverticulitis, Homicidal, Suicidal, threat to staff... and all critical care pts) @ -[Withdrawal poses a significant risk of morbidity and mortality - Lab Data Result diagrams: 04/14/24 03:07 04/14/24 03:07 Lab Results 04/12/24 04/12/24 04/12/24 Range/Units 23:30 23:47 23:47 WBC 2.9 L (3.8-10.6) k/uL RBC 4.10 (3.80-5.40) m/uL Hgb 12.2 (11.4-16.0) gm/dL Hct 36.6 (34.0-46.0) % MCV 89.2 (80.0-100.0) fL MCH 29.8 (25.0-35.0) pg MCHC 33.5 (31.0-37.0) g/dL RDW 15.1 (11.5-15.5) % Plt Count 79 L (150-450) k/uL MPV 7.2 Neutrophils % 51 % Lymphocytes % 40 % Monocytes % 5 % Eosinophils % 2 % Basophils % 0 % Neutrophils # 1.5 (1.3-7.7) k/uL Lymphocytes # 1.2 (1.0-4.8) k/uL Monocytes # 0.1 (0-1.0) k/uL Eosinophils # 0.1 (0-0.7) k/uL Basophils # 0.0 (0-0.2) k/uL Hypochromasia Slight Sodium 140 (137-145) mmol/L Potassium 4.4 (3.5-5.1) mmol/L Chloride 107 (98-107) mmol/L Carbon Dioxide 14 L (22-30) mmol/L Anion Gap 19 mmol/L BUN 7 (7-17) mg/dL Creatinine 0.52 (0.52-1.04) mg/dL Est GFR (CKD-EPI)AfAm >90 (>60 ml/min/1.73 sqM) Est GFR (CKD-EPI)NonAf >90 (>60 ml/min/1.73 sqM) Glucose 51 L (74-99) mg/dL POC Glucose (mg/dL) 59 L (70-110) mg/dL POC Glu Communications Engineer ID Elizabeth Nunes Lactic Ac Sepsis Rflx Plasma Lactic Acid Antoine (0.7-2.0) mmol/L Calcium 8.4 (8.4-10.2) mg/dL Magnesium 1.7 (1.6-2.3) mg/dL Total Bilirubin 0.8 (0.2-1.3) mg/dL AST 86 H (14-36) U/L ALT 38 H (4-34) U/L Alkaline Phosphatase 54 (38-126) U/L Total Protein 6.3 (6.3-8.2) g/dL Albumin 4.2 (3.5-5.0) g/dL Globulin g/dL Albumin/Globulin Ratio Serum Alcohol 426 H* mg/dL 04/12/24 04/13/24 04/13/24 Range/Units 23:47 01:27 04:36 WBC (3.8-10.6) k/uL RBC (3.80-5.40) m/uL Hgb (11.4-16.0) gm/dL Hct (34.0-46.0) % MCV (80.0-100.0) fL MCH (25.0-35.0) pg MCHC (31.0-37.0) g/dL RDW (11.5-15.5) % Plt Count (150-450) k/uL MPV Neutrophils % % Lymphocytes % % Monocytes % % Eosinophils % % Basophils % % Neutrophils # (1.3-7.7) k/uL Lymphocytes # (1.0-4.8) k/uL Monocytes # (0-1.0) k/uL Eosinophils # (0-0.7) k/uL Basophils # (0-0.2) k/uL Hypochromasia Sodium (137-145) mmol/L Potassium (3.5-5.1) mmol/L Chloride (98-107) mmol/L Carbon Dioxide (22-30) mmol/L Anion Gap mmol/L BUN (7-17) mg/dL Creatinine (0.52-1.04) mg/dL Est GFR (CKD-EPI)AfAm (>60 ml/min/1.73 sqM) Est GFR (CKD-EPI)NonAf (>60 ml/min/1.73 sqM) Glucose (74-99) mg/dL POC Glucose (mg/dL) 131 H (70-110) mg/dL POC Glu Communications Engineer ID Margarito Valdez Lactic Ac Sepsis Rflx Y Plasma Lactic Acid Antoine 5.8 H* (0.7-2.0) mmol/L Calcium (8.4-10.2) mg/dL Magnesium (1.6-2.3) mg/dL Total Bilirubin (0.2-1.3) mg/dL AST (14-36) U/L ALT (4-34) U/L Alkaline Phosphatase (38-126) U/L Total Protein (6.3-8.2) g/dL Albumin (3.5-5.0) g/dL Globulin g/dL Albumin/Globulin Ratio Serum Alcohol mg/dL 04/13/24 04/13/24 04/13/24 Range/Units 05:17 05:17 05:17 WBC 2.5 L (3.8-10.6) k/uL RBC 3.92 (3.80-5.40) m/uL Hgb 11.2 L (11.4-16.0) gm/dL Hct 35.3 (34.0-46.0) % MCV 89.9 (80.0-100.0) fL MCH 28.7 (25.0-35.0) pg MCHC 31.9 (31.0-37.0) g/dL RDW 15.2 (11.5-15.5) % Plt Count 79 L (150-450) k/uL MPV 8.7 Neutrophils % 51 % Lymphocytes % 36 % Monocytes % 8 % Eosinophils % 3 % Basophils % 0 % Neutrophils # 1.3 (1.3-7.7) k/uL Lymphocytes # 0.9 L (1.0-4.8) k/uL Monocytes # 0.2 (0-1.0) k/uL Eosinophils # 0.1 (0-0.7) k/uL Basophils # 0.0 (0-0.2) k/uL Hypochromasia Moderate Sodium 138 (137-145) mmol/L Potassium 4.1 (3.5-5.1) mmol/L Chloride 105 (98-107) mmol/L Carbon Dioxide 23 (22-30) mmol/L Anion Gap 10 mmol/L BUN 6 L (7-17) mg/dL Creatinine 0.50 L (0.52-1.04) mg/dL Est GFR (CKD-EPI)AfAm >90 (>60 ml/min/1.73 sqM) Est GFR (CKD-EPI)NonAf >90 (>60 ml/min/1.73 sqM) Glucose 132 H (74-99) mg/dL POC Glucose (mg/dL) (70-110) mg/dL POC Glu Communications Engineer ID Lactic Ac Sepsis Rflx Plasma Lactic Acid Antoine 3.1 H* (0.7-2.0) mmol/L Calcium 8.2 L (8.4-10.2) mg/dL Magnesium 1.7 (1.6-2.3) mg/dL Total Bilirubin 0.8 (0.2-1.3) mg/dL AST 78 H (14-36) U/L ALT 37 H (4-34) U/L Alkaline Phosphatase 47 (38-126) U/L Total Protein 5.7 L (6.3-8.2) g/dL Albumin 3.5 (3.5-5.0) g/dL Globulin 2.2 g/dL Albumin/Globulin Ratio 1.6 Serum Alcohol mg/dL 04/13/24 04/13/24 04/13/24 Range/Units 06:24 09:20 09:50 WBC (3.8-10.6) k/uL RBC (3.80-5.40) m/uL Hgb (11.4-16.0) gm/dL Hct (34.0-46.0) % MCV (80.0-100.0) fL MCH (25.0-35.0) pg MCHC (31.0-37.0) g/dL RDW (11.5-15.5) % Plt Count (150-450) k/uL MPV Neutrophils % % Lymphocytes % % Monocytes % % Eosinophils % % Basophils % % Neutrophils # (1.3-7.7) k/uL Lymphocytes # (1.0-4.8) k/uL Monocytes # (0-1.0) k/uL Eosinophils # (0-0.7) k/uL Basophils # (0-0.2) k/uL Hypochromasia Sodium (137-145) mmol/L Potassium (3.5-5.1) mmol/L Chloride (98-107) mmol/L Carbon Dioxide (22-30) mmol/L Anion Gap mmol/L BUN (7-17) mg/dL Creatinine (0.52-1.04) mg/dL Est GFR (CKD-EPI)AfAm (>60 ml/min/1.73 sqM) Est GFR (CKD-EPI)NonAf (>60 ml/min/1.73 sqM) Glucose (74-99) mg/dL POC Glucose (mg/dL) (70-110) mg/dL POC Glu Communications Engineer ID Lactic Ac Sepsis Rflx Y Y Plasma Lactic Acid Antoine 2.9 H* (0.7-2.0) mmol/L Calcium (8.4-10.2) mg/dL Magnesium (1.6-2.3) mg/dL Total Bilirubin (0.2-1.3) mg/dL AST (14-36) U/L ALT (4-34) U/L Alkaline Phosphatase (38-126) U/L Total Protein (6.3-8.2) g/dL Albumin (3.5-5.0) g/dL Globulin g/dL Albumin/Globulin Ratio Serum Alcohol mg/dL 04/13/24 04/13/24 Range/Units 12:40 13:15 WBC (3.8-10.6) k/uL RBC (3.80-5.40) m/uL Hgb (11.4-16.0) gm/dL Hct (34.0-46.0) % MCV (80.0-100.0) fL MCH (25.0-35.0) pg MCHC (31.0-37.0) g/dL RDW (11.5-15.5) % Plt Count (150-450) k/uL MPV Neutrophils % % Lymphocytes % % Monocytes % % Eosinophils % % Basophils % % Neutrophils # (1.3-7.7) k/uL Lymphocytes # (1.0-4.8) k/uL Monocytes # (0-1.0) k/uL Eosinophils # (0-0.7) k/uL Basophils # (0-0.2) k/uL Hypochromasia Sodium (137-145) mmol/L Potassium (3.5-5.1) mmol/L Chloride (98-107) mmol/L Carbon Dioxide (22-30) mmol/L Anion Gap mmol/L BUN (7-17) mg/dL Creatinine (0.52-1.04) mg/dL Est GFR (CKD-EPI)AfAm (>60 ml/min/1.73 sqM) Est GFR (CKD-EPI)NonAf (>60 ml/min/1.73 sqM) Glucose (74-99) mg/dL POC Glucose (mg/dL) (70-110) mg/dL POC Glu Communications Engineer ID Lactic Ac Sepsis Rflx Y Plasma Lactic Acid Antoine 3.3 H* (0.7-2.0) mmol/L Calcium (8.4-10.2) mg/dL Magnesium (1.6-2.3) mg/dL Total Bilirubin (0.2-1.3) mg/dL AST (14-36) U/L ALT (4-34) U/L Alkaline Phosphatase (38-126) U/L Total Protein (6.3-8.2) g/dL Albumin (3.5-5.0) g/dL Globulin g/dL Albumin/Globulin Ratio Serum Alcohol mg/dL Disposition Clinical Impression: Fall, Alcohol abuse Disposition: ADMITTED IP TO THIS HOSP Condition: Fair Is patient prescribed a controlled substance at d/c from ED?: No
[2024-04-13] MEDS: LORazepam 2 MG/ML INJ IV PRN (11:00)
[2024-04-13 11:34] LABS: Basophils % (A) 0 %; Eosinophils # (A) 0.1 k/uL (0-0.7); Eosinophils % (A) 3 %; HCT 35.3 % (34.0-46.0); HGB 11.2 gm/dL (11.4-16.0); Hypochromasia Moderate; Lymphocytes # (A) 0.9 k/uL (1.0-4.8); Lymphocytes % (A) 36 %; MCH 28.7 pg (25.0-35.0); MCHC 31.9 g/dL (31.0-37.0); MCV 89.9 fL (80.0-100.0); Mean Platelet Volume 8.7; Monocytes # (A) 0.2 k/uL (0-1.0); Monocytes % (A) 8 %; Neutrophils # (A) 1.3 k/uL (1.3-7.7); Neutrophils % (A) 51 %; RBC 3.92 m/uL (3.80-5.40); RDW 15.2 % (11.5-15.5); WBC 2.5 k/uL (3.8-10.6)
[2024-04-13 11:45] LABS: ALT 37 U/L (4-34); AST 78 U/L (14-36); African American GFR (CKD) >90 (>60 ml/min/1.73 sqM); Albumin 3.5 g/dL (3.5-5.0); Albumin/Globulin Ratio 1.6; Alkaline Phosphatase 47 U/L (38-126); Anion Gap 10 mmol/L; Blood Urea Nitrogen 6 mg/dL (7-17); Calcium 8.2 mg/dL (8.4-10.2); Carbon Dioxide 23 mmol/L (22-30); Chloride 105 mmol/L (98-107); Globulin 2.2 g/dL; Glucose 132 mg/dL (74-99); Magnesium 1.7 mg/dL (1.6-2.3); Non-African American GFR(CKD) >90 (>60 ml/min/1.73 sqM); Potassium 4.1 mmol/L (3.5-5.1); Sodium 138 mmol/L (137-145); Total Bilirubin 0.8 mg/dL (0.2-1.3); Total Protein 5.7 g/dL (6.3-8.2)
[2024-04-13 11:58] LABS: Platelet Count 79 k/uL (150-450)
[2024-04-13] MEDS ORDERED: Magnesium Replacement Protocol 1 EACH MISC MISCELLANE PRN (12:49)
--- NOTE | 2024-04-13 13:00 | XR ---
EXAMINATION TYPE: XR chest 2V DATE OF EXAM: 04/13/2024 COMPARISON: 12/19/2022 HISTORY: Hypoxia TECHNIQUE: Frontal and lateral views of the chest are obtained. FINDINGS: There is no focal air space opacity, pleural effusion, or pneumothorax seen. The cardiac silhouette size is within normal limits. The osseous structures are intact. IMPRESSION: No acute cardiopulmonary process.
--- NOTE | 2024-04-13 14:43 | P.HPIM ---
History of Present Illness H&P Date: 04/13/24 Is a pleasant 58-year-old female with medical history significant for chronic alcoholism, hypertension, DVT, anxiety/depression, former smoker. Patient comes into the hospital she is intoxicated states that she tripped and fell over her cat and hit her head. She was not reporting some headache after the fall however that has resolved at this time and she is not reporting any changes in her vision headache nausea vomiting or focal logical deficits. Blood work reveals a white blood cell count of 2.5, BUN of 6, creatinine 0.50, glucose of 132 patient's lactic acid was elevated at 3.1 on admission, AST of 78, ALT of 37. Patient was evaluated today in the ER pending a bed on the medical floor she is alert and oriented x 3 she is having some mild tremors at baseline and will be admitted and monitored for impending alcohol withdrawal. Patient has attempted multiple times to quit alcohol in the past and she does state that she wants to quit alcohol again this time and we will start the patient on Ativan oral CIWA protocol. REVIEW OF SYSTEMS: CONSTITUTIONAL: No fever, no malaise, no fatigue. HEENT: No recent visual problems or hearing problems. Denied any sore throat. CARDIOVASCULAR: No chest pain, orthopnea, PND, no palpitations, no syncope. PULMONARY: No shortness of breath, no cough, no hemoptysis. GASTROINTESTINAL: No diarrhea, no nausea, no vomiting, no abdominal pain. NEUROLOGICAL: No headaches, no weakness, no numbness. HEMATOLOGICAL: Denies any bleeding or petechiae. GENITOURINARY: Denies any burning micturition, frequency, or urgency. MUSCULOSKELETAL/RHEUMATOLOGICAL: Denies any joint pain, swelling, or any muscle pain. ENDOCRINE: Denies any polyuria or polydipsia. The rest of the 14-point review of systems is negative. PHYSICAL EXAMINATION: GENERAL: The patient is alert and oriented x3, not in any acute distress. Well developed, well nourished. HEENT: Pupils are round and equally reacting to light. EOMI. No scleral icterus. No conjunctival pallor. Normocephalic, atraumatic. No pharyngeal erythema. No thyromegaly. CARDIOVASCULAR: S1 and S2 present. No murmurs, rubs, or gallops. PULMONARY: Chest is clear to auscultation, no wheezing or crackles. ABDOMEN: Soft, nontender, nondistended, normoactive bowel sounds. No palpable organomegaly. MUSCULOSKELETAL: No joint swelling or deformity. EXTREMITIES: No cyanosis, clubbing, or pedal edema. NEUROLOGICAL: Gross neurological examination did not reveal any focal deficits. SKIN: No rashes. Assessment and plan Acute alcohol intoxication with impending alcohol withdrawal Lactic acidosis likely dehydrational Bicytopenia likely from immune suppression from chronic alcoholism Alcoholic hepatitis system with chronic and ongoing alcohol use Intertrigo Hypertension History of DVT Anxiety/depression Former smoker GI prophylaxis: Protonix DVT prophylaxis:Heparin subcu Full code Plan Monitor patient for alcohol withdrawal Continue ativan CIWA protocol. Nystatin power BID to the groin and abdominal folds PT/OT consultation Repeat CBC, BMP in the AM Replace magnesium The impression and plan of care has been dictated by Amita Nelson Nurse Practitioner as directed. Dr. Erin MD I have performed a history and physical examination and medical decision making of this patient, discussed the same with the dictator, and agree with the dictators assessment and plan as written, documented as a scribe. Based on total visit time, I have performed more than 50% of this visit. Past Medical History Past Medical History: Deep Vein Thrombosis (DVT), Hypertension Additional Past Medical History / Comment(s): concussion History of Any Multi-Drug Resistant Organisms: None Reported Past Surgical History: No Surgical Hx Reported Additional Past Surgical History / Comment(s): jaw surgery, colostomy 01/2023 Past Anesthesia/Blood Transfusion Reactions: No Reported Reaction Past Psychological History: Anxiety, Depression Past Alcohol Use History: Abuse, Daily, Heavy - Past Family History Father Additional Family Medical History / Comment(s): Spleen CA Mother Family Medical History: COPD Additional Family Medical History / Comment(s): empysema Medications and Allergies Home Medications Medication Instructions Recorded Confirmed Type Multivitamins, Thera [Multivitamin 1 tab PO DAILY #30 tablet 03/21/24 04/13/24 Rx (formulary)] Thiamine [Vitamin B-1] 100 mg PO DAILY #30 tablet 03/21/24 04/13/24 Rx traZODone HCL [Desyrel] 150 mg PO HS #30 tab 03/21/24 04/13/24 Rx Allergies Allergy/AdvReac Type Severity Reaction Status Date / Time bacitracin Allergy Rash/Hives Verified 04/13/24 10:34 cephalexin [From Keflex] Allergy Itching Verified 04/13/24 10:34 Physical Exam Vitals: Vital Signs Temp Pulse Resp BP Pulse Ox 04/13/24 08:29 91 L 04/13/24 06:59 80 18 113/72 91 L 04/13/24 04:26 81 18 118/79 96 04/13/24 02:30 74 18 122/78 98 04/12/24 23:45 98.5 F 81 20 113/68 93 L Intake and Output 04/12/24 04/13/24 04/13/24 22:59 06:59 14:59 Other: Weight 117.934 kg Results CBC & Chem 7: 04/13/24 05:17 04/13/24 05:17 Labs: Abnormal Lab Results - Last 24 Hours (Table) 04/12/24 04/12/24 04/12/24 Range/Units 23:30 23:47 23:47 WBC 2.9 L (3.8-10.6) k/uL Plt Count 79 L (150-450) k/uL Carbon Dioxide 14 L (22-30) mmol/L Glucose 51 L (74-99) mg/dL POC Glucose (mg/dL) 59 L (70-110) mg/dL Plasma Lactic Acid Antoine (0.7-2.0) mmol/L AST 86 H (14-36) U/L ALT 38 H (4-34) U/L Serum Alcohol 426 H* mg/dL 04/12/24 04/13/24 04/13/24 Range/Units 23:47 04:36 05:17 WBC (3.8-10.6) k/uL Plt Count (150-450) k/uL Carbon Dioxide (22-30) mmol/L Glucose (74-99) mg/dL POC Glucose (mg/dL) 131 H (70-110) mg/dL Plasma Lactic Acid Antoine 5.8 H* 3.1 H* (0.7-2.0) mmol/L AST (14-36) U/L ALT (4-34) U/L Serum Alcohol mg/dL 04/13/24 Range/Units 09:20 WBC (3.8-10.6) k/uL Plt Count (150-450) k/uL Carbon Dioxide (22-30) mmol/L Glucose (74-99) mg/dL POC Glucose (mg/dL) (70-110) mg/dL Plasma Lactic Acid Antoine 2.9 H* (0.7-2.0) mmol/L AST (14-36) U/L ALT (4-34) U/L Serum Alcohol mg/dL Assessment and Plan Time with Patient: Less than 30
[2024-04-13] MEDS: MAGNESIUM SULFATE-D5W PMX 1 GM in DEXTROSE/WATER 1 100ML.BAG IVPB ONE (15:27)
[2024-04-13] MEDS: ACETAMINOPHEN TAB 325 MG TAB PO PRN (20:01)
[2024-04-13] MEDS: HEPARIN SODIUM,PORCINE 5,000 UNIT/ML 1 ML VIAL SQ SCH (20:01)
[2024-04-13] MEDS: NYSTATIN 100,000 UNIT/GM POWD 15 GM TOPICAL SCH (20:15)
[2024-04-14] MEDS: ONDANSETRON 4 MG/2 ML VIAL IVP PRN (01:20)
[2024-04-14 07:24] VITALS: RESP 17
[2024-04-14 08:47] LABS: Blood Urea Nitrogen 4.3 mg/dL (9.0-27.0); Calcium 8.6 mg/dL (8.7-10.3); Carbon Dioxide 23.5 mmol/L (21.6-31.8); Chloride 98 mmol/L (96-109); Glucose 107 mg/dL (70-110); Magnesium 1.7 mg/dL (1.5-2.4); Potassium 4.1 mmol/L (3.5-5.5); Sodium 136 mmol/L (135-145)
[2024-04-14 09:00] LABS: Basophils # (A) 0.01 X 10*3/uL (0.00-0.10); Basophils % (A) 0.3 %; Eosinophils # (A) 0.02 X 10*3/uL (0.04-0.35); Eosinophils % (A) 0.5 %; HCT 33.8 % (37.2-46.3); Immature Platelet Fraction 3.8 % (1.1-6.1); Lymphocytes % (A) 18.4 %; MCH 28.5 pg (27.0-32.0); MCHC 32.5 g/dL (32.0-37.0); MCV 87.6 FL (80.0-97.0); Mean Platelet Volume 10.3 FL (9.5-12.2); Monocytes % (A) 10.5 %; NRBC Per 100 WBC 0 X 10*3/uL (0.00-0.01); Neutrophils # (A) 2.64 X 10*3/uL (1.80-7.70); Neutrophils % (A) 69.5 %; Platelet Count 64 X 10*3/uL (140-440); RBC 3.86 X 10*6/uL (4.10-5.20); RDW 15.2 % (11.5-14.5)
[2024-04-14] MEDS: PANTOPRAZOLE 40 MG TABLET PO SCH (09:44)
[2024-04-14] MEDS: MAGNESIUM SULFATE-D5W PMX 1 GM in DEXTROSE/WATER 1 100ML.BAG IVPB ONE (10:57)
[2024-04-14 12:36] VITALS: BP 155/100; PULSE 95; TEMP 98.6
--- NOTE | 2024-05-07 21:47 | P.DS ---
Providers Date of admission: 04/13/24 13:52 Attending physician: Marcia Emanuel Primary care physician: Constantine Figueroa [facility] Course: Final Diagnosis Acute alcohol intoxication with impending alcohol withdrawal Lactic acidosis likely dehydrational Bicytopenia likely from immune suppression from chronic alcoholism Alcoholic hepatitis system with chronic and ongoing alcohol use Transaminitis Intertrigo Hypertension History of DVT Anxiety/depression Former smoker Discharge Disposition Patient is stable for discharge home. Patient was monitored overnight patient is sober now. Not having any evidence of alcohol withdrawal at this time. Patient to cotinue nystatin and mycolog to abdominal folds. Patient advised to quit alcohol. Has a follow up with PCP Dr. Figueroa on Apr 21. Hospital Course Is a pleasant 58-year-old female with medical history significant for chronic alcoholism, hypertension, DVT, anxiety/depression, former smoker. Patient comes into the hospital she is intoxicated states that she tripped and fell over her cat and hit her head. She was not reporting some headache after the fall however that has resolved at this time and she is not reporting any changes in her vision headache nausea vomiting or focal logical deficits. Blood work reveals a white blood cell count of 2.5, BUN of 6, creatinine 0.50, glucose of 132 patient's lactic acid was elevated at 3.1 on admission, AST of 78, ALT of 37. Patient was evaluated today in the ER pending a bed on the medical floor she is alert and oriented x 3 she is having some mild tremors at baseline and will be admitted and monitored for impending alcohol withdrawal. Patient has attempted multiple times to quit alcohol in the past and she does state that she wants to quit alcohol again this time and we will start the patient on Ativan oral CIWA protocol. Patient was monitored on the medical floor overnight. Not having any withdrawal symptoms anymore. Patient is having complaints of excoriation and fungal infection in her groin and abdominal/breast folds and has been started on nystatin and mycolog. Vitals stable. Renal function WNL. LFTs improving. Please see medication reconciliation for a list of current medications. Thank you for allowing us to participate in the care of this patient. The impression and plan of care has been dictated by Amita Nelson, Nurse Practitioner as directed. Dr. Erin MD I have performed a history and physical examination and medical decision making of this patient, discussed the same with the dictator, and agree with the dictators assessment and plan as written, documented as a scribe. Based on total visit time, I have performed more than 50% of this visit. Patient Condition at Discharge: Fair Plan - Discharge Summary Discharge Rx Participant: Yes New Discharge Prescriptions: New Pantoprazole [Protonix] 40 mg PO AC-BRKFST #30 tab Nystatin-Triamcinolone Oint [Mycolog 100,000-0.1 Unit/gm-% Oint] 1 applic TOPICAL BID 14 Days #15 gm Nystatin 100,000 Unit/gm Powd [Mycostatin Powder] 1 applic TOPICAL BID #1 each Continue traZODone HCL [Desyrel] 150 mg PO HS #30 tab Thiamine [Vitamin B-1] 100 mg PO DAILY #30 tablet Multivitamins, Thera [Multivitamin (formulary)] 1 tab PO DAILY #30 tablet Discharge Medication List Multivitamins, Thera [Multivitamin (formulary)] 1 tab PO DAILY #30 tablet 03/21/24 [Rx] Thiamine [Vitamin B-1] 100 mg PO DAILY #30 tablet 03/21/24 [Rx] traZODone HCL [Desyrel] 150 mg PO HS #30 tab 03/21/24 [Rx] Nystatin 100,000 Unit/gm Powd [Mycostatin Powder] 1 applic TOPICAL BID #1 each 04/14/24 [Rx] Nystatin-Triamcinolone Oint [Mycolog 100,000-0.1 Unit/gm-% Oint] 1 applic TOPICAL BID 14 Days #15 gm 04/14/24 [Rx] Pantoprazole [Protonix] 40 mg PO AC-BRKFST #30 tab 04/14/24 [Rx] Follow up Appointment(s)/Referral(s): Constantine Figueroa DO [Primary Care Provider] - 04/21/24 3:15 pm Patient Instructions/Handouts: Nystatin/Triamcinolone (On the skin), Nystatin (On the skin), Pantoprazole (By mouth) Discharge/Stand Alone Forms: AA Meetings [facility] 22 & 24 - [facility], AA Meetings [facility], Who Do I Call?, Assisted Living Facilities, Community Resources, Outpatient Counseling, Inp Substance Abuse Facilities Discharge Disposition: HOME SELF-CARE
== END 2024-04-14 16:05 | disposition home or self-care (01) | DRG 897 ==
LOC: EC 23:26 → 5NMEDONC 04-13 02:30 → OBSVTOIN 04-13 13:52 → 5NMEDONC 04-13 15:38
PROVIDERS: ADMIT Hospitalist; ATTEND Hospitalist
DX: F10.229 Alcohol dependence with intoxication, unspecified (principal); D84.81 Immunodeficiency due to conditions classified elsewhere; E87.20 Acidosis, unspecified; K70.10 Alcoholic hepatitis without ascites; Z93.3 Colostomy status; I10 Essential (primary) hypertension; F32.A Depression, unspecified; F41.9 Anxiety disorder, unspecified; E86.0 Dehydration; D75.89 Other specified diseases of blood and blood-forming organs; L30.4 Erythema intertrigo; R25.1 Tremor, unspecified; W01.10XA Fall on same level from slipping, tripping and stumbling with subsequent striking against unspecified object, initial encounter; Y90.8 Blood alcohol level of 240 mg/100 ml or more; Y92.009 Unspecified place in unspecified non-institutional (private) residence as the place of occurrence of the external cause; Z86.718 Personal history of other venous thrombosis and embolism; Z87.891 Personal history of nicotine dependence; Z88.1 Allergy status to other antibiotic agents; Z87.820 Personal history of traumatic brain injury; Z79.899 Other long term (current) drug therapy
CPT/HCPCS: 36415; 70450; 71046; 72125; 80048; 80053; 80320; 83605; 83735; 85025; 94760; 96361; 96374; 96375; 96376; 99285

== ENCOUNTER 2024-04-26 00:08 | Emergency (ER) | payer MEDICARE ==
--- NOTE | 2024-05-31 15:25 | CT ---
EXAM: CT Head Without Intravenous Contrast CLINICAL HISTORY: fall/hit head/ bleeding from back of head TECHNIQUE: Axial computed tomography images of the head/brain without intravenous contrast. CTDI is 45.3 mGy and DLP is 1059 mGy-cm. This CT exam was performed using one or more of the following dose reduction techniques: automated exposure control, adjustment of the mA and/or kV according to patient size, and/or use of iterative reconstruction technique. COMPARISON: No relevant prior studies available. FINDINGS: Brain:Age-related cerebral volume loss. Periventricular and subcortical white matter hypoattenuation, consistent with chronic microangiopathy. No acute intracranial hemorrhage. No midline shift or mass effect. Ventricles:Unremarkable. No ventriculomegaly. Bones/joints:Unremarkable. No acute fracture. Soft tissues:RIGHT occipital scalp soft tissue swelling. Sinuses:Unremarkable as visualized. No acute sinusitis. Mastoid air cells:Unremarkable as visualized. No mastoid effusion. IMPRESSION: 1. No acute intracranial hemorrhage. No midline shift or mass effect. 2. RIGHT occipital scalp soft tissue swelling. EXAM: CT Cervical Spine Without Intravenous Contrast CLINICAL HISTORY: fall/hit head/ bleeding from back of head TECHNIQUE: Axial computed tomography images of the cervical spine without intravenous contrast. CTDI is 11.4 mGy and DLP is 315 mGy-cm. This CT exam was performed using one or more of the following dose reduction techniques: automated exposure control, adjustment of the mA and/or kV according to patient size, and/or use of iterative reconstruction technique. COMPARISON: No relevant prior studies available. FINDINGS: The vertebral body heights are maintained. The craniocervical junction is intact. The atlanto-dens interval is maintained. The dens is intact. There is no spondylolisthesis. Multilevel cervical spondylosis and degenerative disc disease. Straightening of the cervical lordosis. The unenhanced neck soft tissues are grossly unremarkable. The visualized lung apices are grossly clear. IMPRESSION: No acute fracture or subluxation of the cervical spine. Radiologist: James Villar MD Electronically Signed: 04/26/24 01:45 Study ready at 01:39 and initial results transmitted at 01:45 Results also transmitted to Film Room, Film Room @ [phone] (Fax) VALERIE
== END 2024-04-26 02:41 | disposition home or self-care (01) ==
LOC: EC 00:08
CPT/HCPCS: 70450; 72125; 82075; 99283

== ENCOUNTER 2024-05-15 15:10 | Emergency (ER) | payer MEDICARE ==
[2024-05-15 15:28] VITALS: BP 123/79; PULSE 82; RESP 16; TEMP 97.4
--- NOTE | 2024-05-15 16:16 | ED ---
Fall HPI - General Chief Complaint: Fall Stated Complaint: Fall/ETOH Time Seen by Provider: 05/15/24 16:13 Source: patient, EMS, RN notes reviewed Mode of arrival: EMS - History of Present Illness Initial Comments: 58-year-old female presenting for head injury s/p mechanical fall prior to arrival. States she was in her living room and accidentally tripped over a pair of sandals, hitting the left side of the back of her head on the floor. Patient does not believe she lost consciousness. Patient is on Xarelto for DVT. Denies other injuries. Denies headache, vision changes, chest pain, shortness of breath. Denies any other symptoms preceding the fall. - Related Data Previous Rx's Medication Instructions Recorded Multivitamins, Thera [Multivitamin 1 tab PO DAILY #30 tablet 03/21/24 (formulary)] Thiamine [Vitamin B-1] 100 mg PO DAILY #30 tablet 03/21/24 traZODone HCL [Desyrel] 150 mg PO HS #30 tab 03/21/24 Nystatin 100,000 Unit/gm Powd 1 applic TOPICAL BID #1 each 04/14/24 [Mycostatin Powder] Nystatin-Triamcinolone Oint 1 applic TOPICAL BID 14 Days #15 gm 04/14/24 [Mycolog 100,000-0.1 Unit/gm-% Oint] Pantoprazole [Protonix] 40 mg PO AC-BRKFST #30 tab 04/14/24 Allergies Allergy/AdvReac Type Severity Reaction Status Date / Time bacitracin Allergy Rash/Hives Verified 04/13/24 10:34 cephalexin [From Keflex] Allergy Itching Verified 04/13/24 10:34 Review of Systems ROS Statement: Those systems with pertinent positive or pertinent negative responses have been documented in the HPI. ROS Other: All systems not noted in ROS Statement are negative. Past Medical History Past Medical History: Deep Vein Thrombosis (DVT), Hypertension Additional Past Medical History / Comment(s): concussion History of Any Multi-Drug Resistant Organisms: None Reported Past Surgical History: No Surgical Hx Reported Additional Past Surgical History / Comment(s): jaw surgery, colostomy 01/2023 Past Anesthesia/Blood Transfusion Reactions: No Reported Reaction Past Psychological History: Anxiety, Depression Smoking Status: Former smoker Past Alcohol Use History: Abuse, Daily, Heavy Past Drug Use History: None Reported - Past Family History Father Additional Family Medical History / Comment(s): Spleen CA Mother Family Medical History: COPD Additional Family Medical History / Comment(s): empysema General Exam Limitations: no limitations General appearance: alert, in no apparent distress Head exam: Present: atraumatic, normocephalic, normal inspection, other (Tenderness over left occipital portion of head) Eye exam: Present: normal appearance, PERRL, EOMI. Absent: scleral icterus, conjunctival injection, periorbital swelling ENT exam: Present: normal exam, mucous membranes moist Neck exam: Present: normal inspection. Absent: tenderness, meningismus, lymphadenopathy Respiratory exam: Present: normal lung sounds bilaterally. Absent: respiratory distress, wheezes, rales, rhonchi, stridor Cardiovascular Exam: Present: regular rate, normal rhythm, normal heart sounds. Absent: systolic murmur, diastolic murmur, rubs, gallop, clicks Neurological exam: Present: alert, oriented X3, CN II-XII intact Psychiatric exam: Present: normal affect, normal mood Skin exam: Present: warm, dry, intact, normal color. Absent: rash Course Vital Signs 05/15/24 15:20 Temperature 97.4 F L Pulse Rate 82 Respiratory 16 Rate Blood Pressure 123/79 O2 Sat by Pulse 95 Oximetry Medical Decision Making - Medical Decision Making Was pt. sent in by a medical professional or institution (ADORE Og, GLOVE PARTS CUTTER, urgent care, hospital, or senior living...) When possible be specific @ -No Did you speak to anyone other than the patient for history (EMS, parent, family, police, friend...)? What history was obtained from this source @ -No Did you review nursing and triage notes (agree or disagree)? Why? @ -I reviewed and agree with nursing and triage notes Were old charts reviewed (outside hosp., previous admission, EMS record, old EKG, old radiological studies, urgent care reports/EKG's, senior living records)? Report findings @ -No old charts were reviewed Differential Diagnosis (chest pain, altered mental status, abdominal pain women, abdominal pain men, vaginal bleeding, weakness, fever, dyspnea, syncope, headache, dizziness, GI bleed, back pain, seizure, CVA, palpatations, mental health, musculoskeletal)? @ -Differential Musculoskeletal Concussion, intracranial bleed, skull fracture, muscular strain, contusion, liga ment sprain, fracture, arthritis, septic arthritis, bursitis, cellulitis, muscle spasm, nerve compression, DVT, arterial occlusion, herpes zoster, electrolyte abnormality, tumor.... This is not meant to be in all inclusive list EKG interpreted by me (3pts min.). @ -None X-rays interpreted by me (1pt min.). @ -None done CT interpreted by me (1pt min.). @ -CT brain reveals no acute process U/S interpreted by me (1pt. min.). @ -None done What testing was considered but not performed or refused? (CT, X-rays, U/S, labs)? Why? @ -None What meds were considered but not given or refused? Why? @ -None Did you discuss the management of the patient with other professionals (professionals i.e. , PA, GLOVE PARTS CUTTER, lab, RT, psych nurse, social professionals, passenger car upholsterer apprentice, teacher, immigration officer, onsite case manager)? Give summary @ -No Was smoking cessation discussed for >3mins.? @ -No Was critical care preformed (if so, how long)? @ -No Were there social determinants of health that impacted care today? How? (Homelessness, low income, unemployed, alcoholism, drug addiction, transportation, low edu. Level, literacy, decrease access to med. care, [facility], rehab)? @ -No Was there de-escalation of care discussed even if they declined (Discuss DNR or withdrawal of care, Hospice)? DNR status @ -No What co-morbidities impacted this encounter? (DM, HTN, Smoking, COPD, CAD, Cancer, CVA, ARF, Chemo, Hep., AIDS, mental health diagnosis, sleep apnea, morbid obesity)? @ -None Was patient admitted / discharged? Hospital course, mention meds given and route, prescriptions, significant lab abnormalities, going to OR and other perti nent info. @ -Patient was discharged. Patient was seen and evaluated for head injury status post mechanical fall. Patient states she tripped and fell over a pair of sandals at home and hit her head on the floor. Patient is on blood thinners. Denies other injuries or concerns. Neuro examination is unremarkable. CT of brain reveals no acute process. Discussed findings with patient. Return daore wei discussed and patient conveys understanding and agrees to plan. Case was discussed with my ED attending Dr. Grier. Patient is discharged in stable condition, states she has family to pick her up and bring her home. Undiagnosed new problem with uncertain prognosis? @ -No Drug Therapy requiring intensive monitoring for toxicity (Heparin, Nitro, Insulin, Cardizem)? @ -No Were any procedures done? @ -No Diagnosis/symptom? @ -Head injury, mechanical fall Acute, or Chronic, or Acute on Chronic? @ -Acute Uncomplicated (without systemic symptoms) or Complicated (systemic symptoms)? @ -Uncomplicated Side effects of treatment? @ -No Exacerbation, Progression, or Severe Exacerbation? @ -No Poses a threat to life or bodily function? How? (Chest pain, [place], [place], pneumonia, PE, COPD, DKA, ARF, appy, cholecystitis, CVA, Diverticulitis, Homicidal, Suicidal, threat to staff... and all critical care pts) @ -No Disposition Clinical Impression: Head injury, acute Disposition: HOME SELF-CARE Condition: Stable Additional Instructions: Please return to the Emergency Department if symptoms worsen or any other concerns. Is patient prescribed a controlled substance at d/c from ED?: No Referrals: Constantine Figueroa DO [Primary Care Provider] - 1-2 days Time of Disposition: 18:10
--- NOTE | 2024-05-15 17:52 | CT ---
EXAMINATION TYPE: CT brain wo con DATE OF EXAM: 05/15/2024 COMPARISON: 04/13/2024 INDICATION: Fall, head injury DLP: 1158.1 mGycm, Automated exposure control for dose reduction was used. CONTRAST: None CT of the brain is performed utilizing 3 mm thick sections through the posterior fossa and 3 mm thick sections through the remaining calvarium. Study is performed within 24 hours of arrival to the hosp ital. No abnormal hyperdensity is present to suggest an acute intracranial hemorrhage. No mass lesion is evident. No acute infarcts are evident. Mild periventricular white matter hypodensity is present, likely on th e basis of chronic white matter ischemic changes Ventricles and sulci are mildly prominent for the patient age. Paranasal sinuses and mastoid air cells within the [id number] are clear. IMPRESSION: 1. No acute intracranial process. No acute posttraumatic changes. Follow up MRI can be performed as clinically indicated. 2. Mild chronic appearing periventricular white matter ischemic type changes with age-related atrophy , stable from comparison
== END 2024-05-15 18:22 | disposition home or self-care (01) ==
LOC: EC 15:10
DX: S09.90XA Unspecified injury of head, initial encounter (principal); W01.0XXA Fall on same level from slipping, tripping and stumbling without subsequent striking against object, initial encounter
CPT/HCPCS: 70450; 99284

== ENCOUNTER 2024-05-28 07:13 | Inpatient (IN) | payer MEDICARE, OTHER ==
--- NOTE | 2024-05-28 08:07 | ED ---
General Adult HPI - General Chief complaint: Fall Stated complaint: Fall-head injury Time Seen by Provider: 05/28/24 07:15 Source: patient Mode of arrival: EMS - History of Present Illness Initial comments: Dictation was produced using [employer] dictation software. please excuse any gr ammatical, word or spelling errors. Chief Complaint: 58-year-old female presents emergency department after fall History of Present Illness: Patient is a 58-year-old female who presents to the emergency department after fall. Patient has history of alcohol abuse. This morning she woke up and tripped over her cat. She fell hit the back of her right head. Patient according to EMS had a laceration. Patient has history of ostomy. She has been having significant acute on chronic skin breakdown near her ostomy site. Patient denies any arm or extremity pain. Denies any chest or abdominal pain. No shortness of breath. According to EMS patient takes anticoagulation medications. The ROS documented in this emergency department record has been reviewed and confirmed by me. Those systems with pertinent positive or negative responses have been documented in the HPI. All other systems are other negative and/or noncontributory. - Related Data Previous Rx's Medication Instructions Recorded Multivitamins, Thera [Multivitamin 1 tab PO DAILY #30 tablet 03/21/24 (formulary)] Thiamine [Vitamin B-1] 100 mg PO DAILY #30 tablet 03/21/24 traZODone HCL [Desyrel] 150 mg PO HS #30 tab 03/21/24 Nystatin 100,000 Unit/gm Powd 1 applic TOPICAL BID #1 each 04/14/24 [Mycostatin Powder] Nystatin-Triamcinolone Oint 1 applic TOPICAL BID 14 Days #15 gm 04/14/24 [Mycolog 100,000-0.1 Unit/gm-% Oint] Pantoprazole [Protonix] 40 mg PO AC-BRKFST #30 tab 04/14/24 Allergies Allergy/AdvReac Type Severity Reaction Status Date / Time bacitracin Allergy Rash/Hives Verified 04/13/24 10:34 cephalexin [From Keflex] Allergy Itching Verified 04/13/24 10:34 Review of Systems ROS Statement: Those systems with pertinent positive or pertinent negative responses have been documented in the HPI. ROS Other: All systems not noted in ROS Statement are negative. Past Medical History Past Medical History: Deep Vein Thrombosis (DVT), Hypertension Additional Past Medical History / Comment(s): concussion History of Any Multi-Drug Resistant Organisms: None Reported Past Surgical History: No Surgical Hx Reported Additional Past Surgical History / Comment(s): jaw surgery, colostomy 01/2023 Past Anesthesia/Blood Transfusion Reactions: No Reported Reaction Past Psychological History: Anxiety, Depression Past Alcohol Use History: Abuse, Daily, Heavy - Past Family History Father Additional Family Medical History / Comment(s): Spleen CA Mother Family Medical History: COPD Additional Family Medical History / Comment(s): empysema General Exam - General Exam Comments Initial Comments: PHYSICAL EXAM: General Impression: Alert and oriented x3, not in acute distress, disheveled covered in feces HEENT: Normocephalic atraumatic, extra-ocular movements intact, pupils equal and reactive to light bilaterally, mucous membranes moist. Cardiovascular: Heart regular rate and rhythm Chest: Able to complete full sentences, no retractions, no tachypnea Abdomen: abdomen soft, non-tender, non-distended, no organomegaly Musculoskeletal: Pulses present and equal in all extremities, no peripheral edema Motor: no focal deficits noted Neurological: CN II-XII grossly intact, no focal motor or sensory deficits noted Skin: Severe skin breakdown near her ostomy site extending to the groin Psych: Normal affect and mood Course Vital Signs 05/28/24 05/28/24 07:43 07:59 Pulse Rate 102 H Respiratory 16 18 Rate O2 Sat by Pulse 96 96 Oximetry EKG Findings - EKG Comments: EKG Findings:: My EKG interpretation: Ventricular rate 89, sinus rhythm,. 139, cures 91, QTc 423. No MS prolongation, no QTC prolongation, no ST or T-wave changes noted. Overall, this EKG is unremarkable Medical Decision Making - Medical Decision Making Was pt. sent in by a medical professional or institution (, PA, PREFORM MACHINE OPERATOR, urgent care, hospital, or senior living...) When possible be specific @ -No Did you speak to anyone other than the patient for history (EMS, parent, family, police, friend...)? What history was obtained from this source @ -Some history obtained by EMS as described above Did you review nursing and triage notes (agree or disagree)? Why? @ -I reviewed and agree with nursing and triage notes Were old charts reviewed (outside hosp., previous admission, EMS record, old EKG, old radiological studies, urgent care reports/EKG's, senior living records)? Report findings @ -No old charts were reviewed Differential Diagnosis (chest pain, altered mental status, abdominal pain women, abdominal pain men, vaginal bleeding, musculoskeletal, weakness, fever, dyspnea, syncope, headache, dizziness, GI bleed, back pain, seizure, CVA, palpatations, mental health)? @ -Skull fracture, neck fracture, arrhythmia EKG interpreted by me (3pts min.). @ -See above X-rays interpreted by me (1pt min.). @ -Chest x-ray bilateral infiltrates CT interpreted by me (1pt min.). @ -CT brain and C-spine shows no acute processes. U/S interpreted by me (1pt. min.). @ -None done What testing was considered but not performed or refused? (CT, X-rays, U/S, labs)? Why? @ -None What meds were considered but not given or refused? Why? @ -None Was smoking cessation discussed for >3mins.? @ -No Were there social determinants of health that impacted care today? How? ([place] elessness, low income, unemployed, alcoholism, drug addiction, transportation, low edu. Level, literacy, decrease access to med. care, group home, rehab)? @ -No Was there de-escalation of care discussed even if they declined (Discuss DNR or withdrawal of care, Hospice)? DNR status @ -No What co-morbidities impacted this encounter? (DM, HTN, Smoking, COPD, CAD, Cancer, CVA, ARF, Chemo, Hep., AIDS, mental health diagnosis, sleep apnea, morbid obesity)? @ -Alcoholism, debility Was patient admitted / discharged? Hospital course, mention meds given and route, prescriptions, significant lab abnormalities, going to OR and other pertinent info. @ -84-year-old female presents emergency department after trip and fall over a cat. Patient appears slightly altered. Vital signs upon arrival are within a cceptable limits. Laboratory evaluation obtained. Patient mildly acidotic with serum alcohol 366 and lipase of 3000. Clinical presentation consistent with alcohol intoxication with alcoholic pancreatitis. Patient will be admitted for inpatient treatment Did you discuss the management of the patient with other professionals (professionals i.e. Dr., PA, PREFORM MACHINE OPERATOR, lab, RT, psych nurse, social contact worker, mva operator, teacher, correctional probation officer, caser up)? Give summary @ -Case discussed with Dr. Moy for admission Was critical care preformed (if so, how long)? @ -No Undiagnosed new problem with uncertain prognosis? @ -No Drug Therapy requiring intensive monitoring for toxicity (Heparin, Nitro, Insulin, Cardizem)? @ -No Were any procedures done? @ -No Diagnosis/symptom? Acute, or Chronic, or Acute on Chronic? Uncomplicated (without systemic symptoms) or Complicated (systemic symptoms)? @ -Alcohol intoxication, alcoholic pancreatitis Side effects of treatment? @ -No Exacerbation, Progression, or Severe Exacerbation? @ -No Poses a threat to life or bodily function? How? (Chest pain, [place], [place], pneumonia, PE, COPD, DKA, ARF, appy, cholecystitis, CVA, Diverticulitis, Homicidal, Suicidal, threat to staff... and all critical care pts) @ -yes - Lab Data Result diagrams: 05/28/24 08:15 05/28/24 08:15 Lab Results 05/28/24 05/28/24 Range/Units 08:15 08:15 WBC 3.4 L (3.8-10.6) k/uL RBC 3.98 (3.80-5.40) m/uL Hgb 11.7 (11.4-16.0) gm/dL Hct 36.2 (34.0-46.0) % MCV 90.9 (80.0-100.0) fL MCH 29.4 (25.0-35.0) pg MCHC 32.3 (31.0-37.0) g/dL RDW 16.4 H (11.5-15.5) % Plt Count 111 L (150-450) k/uL MPV 8.6 Neutrophils % 65 % Lymphocytes % 21 % Monocytes % 9 % Eosinophils % 1 % Basophils % 0 % Neutrophils # 2.2 (1.3-7.7) k/uL Lymphocytes # 0.7 L (1.0-4.8) k/uL Monocytes # 0.3 (0-1.0) k/uL Eosinophils # 0.0 (0-0.7) k/uL Basophils # 0.0 (0-0.2) k/uL Hypochromasia Slight Anisocytosis Slight Sodium 136 L (137-145) mmol/L Potassium 3.5 (3.5-5.1) mmol/L Chloride 99 (98-107) mmol/L Carbon Dioxide 20 L (22-30) mmol/L Anion Gap 17 mmol/L BUN <2 L (7-17) mg/dL Creatinine 0.48 L (0.52-1.04) mg/dL Est GFR (CKD-EPI)AfAm >90 (>60 ml/min/1.73 sqM) Est GFR (CKD-EPI)NonAf >90 (>60 ml/min/1.73 sqM) Glucose 93 (74-99) mg/dL Calcium 8.8 (8.4-10.2) mg/dL Total Bilirubin 1.2 (0.2-1.3) mg/dL AST 145 H (14-36) U/L ALT 60 H (4-34) U/L Alkaline Phosphatase 74 (38-126) U/L Total Protein 6.2 L (6.3-8.2) g/dL Albumin 3.7 (3.5-5.0) g/dL Lipase 3028 H (23-300) U/L Serum Alcohol 366 H* mg/dL Disposition Clinical Impression: Alcohol intoxication, Alcoholic pancreatitis Disposition: ADMITTED IP TO THIS HOSP Condition: Fair Referrals: Constantine Figueroa DO [Primary Care Provider] - 1-2 days Decision Time: 11:49
[2024-05-28 08:29] LABS: Anisocytosis Slight; Basophils % (A) 0 %; Eosinophils % (A) 1 %; HCT 36.2 % (34.0-46.0); HGB 11.7 gm/dL (11.4-16.0); Hypochromasia Slight; Lymphocytes # (A) 0.7 k/uL (1.0-4.8); Lymphocytes % (A) 21 %; MCH 29.4 pg (25.0-35.0); MCHC 32.3 g/dL (31.0-37.0); MCV 90.9 fL (80.0-100.0); Mean Platelet Volume 8.6; Monocytes # (A) 0.3 k/uL (0-1.0); Monocytes % (A) 9 %; Neutrophils # (A) 2.2 k/uL (1.3-7.7); Neutrophils % (A) 65 %; Platelet Count 111 k/uL (150-450); RBC 3.98 m/uL (3.80-5.40); RDW 16.4 % (11.5-15.5); WBC 3.4 k/uL (3.8-10.6)
[2024-05-28 09:04] LABS: ALT 60 U/L (4-34); AST 145 U/L (14-36); African American GFR (CKD) >90 (>60 ml/min/1.73 sqM); Albumin 3.7 g/dL (3.5-5.0); Alkaline Phosphatase 74 U/L (38-126); Anion Gap 17 mmol/L; Blood Urea Nitrogen <2 mg/dL (7-17); Calcium 8.8 mg/dL (8.4-10.2); Carbon Dioxide 20 mmol/L (22-30); Chloride 99 mmol/L (98-107); Glucose 93 mg/dL (74-99); Non-African American GFR(CKD) >90 (>60 ml/min/1.73 sqM); Potassium 3.5 mmol/L (3.5-5.1); Sodium 136 mmol/L (137-145); Total Bilirubin 1.2 mg/dL (0.2-1.3); Total Protein 6.2 g/dL (6.3-8.2)
--- NOTE | 2024-05-28 09:08 | CT ---
EXAMINATION TYPE: CT brain cspine wo con DATE OF EXAM: 05/28/2024 COMPARISON: Brain 05/15/2024 HISTORY: 58-year-old female Trip and fall CT DLP: 1577.2 mGycm Automated exposure control for dose reduction was used. Technique: Examination of the head was done in axial plane without intravenous contrast. Coronal and sagittal reconstructions performed. CT of the cervical spine was obtained in axial plane without intravenous injection of contrast mater ial. Coronal and sagittal reformatted images were obtained from the axial views for evaluation of f ractures, spinal alignment and canal. FINDINGS: Head: There is no evidence of acute intracranial hemorrhage, acute ischemic changes, mass, mass-effect, or extra-axial fluid collection. There is no effacement of cerebral sulci or basal subarachnoid cister ns. There is no hydrocephalus. There is no midline shift. Tejeda-white matter distinction is preserv ed. Similar mild patchy white matter hypodensities in both cerebral hemispheres. Rightward nasal septal deviation. Mild mucosal thickening ethmoid air cells. Mild mucosal thickening floors of the maxillary sinuses. Mastoid air cells are well pneumatized. Orbits and globes are intact . Cervical spine: No craniocervical junction abnormality, predental space widening, or prevertebral soft tissue swellin g. Cidg-wi-onzvfwwo multilevel discogenic endplate degenerative changes as well as facet and uncovertebr al joint arthropathy. No acute fracture seen of the cervical spine. Alignment is maintained. No significant spinal canal stenosis seen. Changes result in moderate right neuroforaminal stenosis at C3-C4 and mild at additional levels varia meghan throughout. Sagittal and coronal reformatted images confirm above findings. COMBINED IMPRESSION: 1. Mild burden of chronic small vessel ischemic disease. No acute intracranial abnormality seen. 2. No acute fracture or malalignment of the cervical spine. Mild to moderate multilevel spondylotic c hange. [facility], , 05/28/2024 9:06 AM
[2024-05-28 10:06] LABS: Alcohol 366 mg/dL; Lipase 3028 U/L (23-300)
[2024-05-28] MEDS ORDERED: NALOXONE 0.4 MG/ML 1 ML VIAL IV PRN (11:34)
--- NOTE | 2024-05-28 11:54 | XR ---
EXAMINATION TYPE: XR chest 2V, XR pelvis AP view DATE OF EXAM: 05/28/2024 COMPARISON: Chest 04/13/[address] pelvis 01/10/2024 HISTORY: 58-year-old female tripped and fall, pain FINDINGS: Chest: Heart normal size. Aorta and pulmonary vasculature within normal limits. Slight asymmetric right nelly r prominence likely due to slight leftward patient rotation. Reassess this area in 4-6 weeks by radio graph. Mild interstitial density has a chronic appearance. No bianca consolidation or pleural effusion . Pelvis: No acute fracture, subluxation or dislocation seen. SI joints appear symmetric and intact as does th e pubic symphysis. Redemonstrated ossification along the anterior right hip. IMPRESSION: 1. Chest: Chronic changes. Some asymmetric right hilar prominence probably due to leftward patient ro tation. Reassess this area at a 4-6 week follow-up radiograph. No definite acute process otherwise se en. 2. Pelvis: Similar ossification anterior right hip suggesting sequela of prior avulsion injury to the rectus femoris. No acute osseous abnormality seen. [facility], , 05/28/2024 11:52 AM
--- NOTE | 2024-05-28 13:07 | P.HPIM ---
History of Present Illness H&P Date: 05/28/24 Chief Complaint: Fall/head injury 58-year-old female, history of hypertension, DVT, who presents to the emergency department after fall. Patient has history of alcohol abuse. This morning she woke up and tripped over her cat. She fell hit the back of her right head. According to EMS records patient sustained a laceration. Patient has history of ostomy. She has been having significant acute on chronic skin breakdown near her ostomy site. Patient denies any arm or extremity pain. Denies any chest or abdominal pain upon arrival to ED. No shortness of breath. According to EMS patient takes anticoagulation medications. Patient is awake at the time of evaluation and does report nausea and abdominal pain worse in the epigastric area Labs completed in ED revealed WBC of 3.4, hemoglobin of 11.7 and platelet count of 111, sodium 136, potassium 3.5, BUNs/creatinine of 2/0.48 and blood glucose of 93, AST elevated at 145 ALT of 60, lipase 3028 with blood alcohol level of 366 CT of the head and cervical spine completed in ED does not show any acute intracranial hemorrhage or ischemic changes; nasal septal deviation with mucosal cell thickening of ethmoid and maxillary sinuses Review of Systems REVIEW OF SYSTEMS: CONSTITUTIONAL: No fever, no malaise, no fatigue. HEENT: No recent visual problems or hearing problems. Denied any sore throat. CARDIOVASCULAR: No chest pain, orthopnea, PND, no palpitations, no syncope. PULMONARY: No shortness of breath, no cough, no hemoptysis. GASTROINTESTINAL: No diarrhea, no nausea, no vomiting, no abdominal pain. NEUROLOGICAL: No headaches, no weakness, no numbness. HEMATOLOGICAL: Denies any bleeding or petechiae. GENITOURINARY: Denies any burning micturition, frequency, or urgency. MUSCULOSKELETAL/RHEUMATOLOGICAL: Denies any joint pain, swelling, or any muscle pain. ENDOCRINE: Denies any polyuria or polydipsia. The rest of the 14-point review of systems is negative. Past Medical History Past Medical History: Deep Vein Thrombosis (DVT), Hypertension Additional Past Medical History / Comment(s): concussion History of Any Multi-Drug Resistant Organisms: None Reported Past Surgical History: No Surgical Hx Reported Additional Past Surgical History / Comment(s): jaw surgery, colostomy 01/2023 Past Anesthesia/Blood Transfusion Reactions: No Reported Reaction Past Psychological History: Anxiety, Depression Past Alcohol Use History: Abuse, Daily, Heavy - Past Family History Father Additional Family Medical History / Comment(s): Spleen CA Mother Family Medical History: COPD Additional Family Medical History / Comment(s): empysema Medications and Allergies Home Medications Medication Instructions Recorded Confirmed Type Multivitamins, Thera [Multivitamin 1 tab PO DAILY #30 tablet 03/21/24 04/13/24 Rx (formulary)] Thiamine [Vitamin B-1] 100 mg PO DAILY #30 tablet 03/21/24 04/13/24 Rx traZODone HCL [Desyrel] 150 mg PO HS #30 tab 03/21/24 04/13/24 Rx Nystatin 100,000 Unit/gm Powd 1 applic TOPICAL BID #1 each 04/14/24 Rx [Mycostatin Powder] Nystatin-Triamcinolone Oint 1 applic TOPICAL BID 14 Days #15 gm 04/14/24 Rx [Mycolog 100,000-0.1 Unit/gm-% Oint] Pantoprazole [Protonix] 40 mg PO AC-BRKFST #30 tab 04/14/24 Rx Allergies Allergy/AdvReac Type Severity Reaction Status Date / Time bacitracin Allergy Rash/Hives Verified 04/13/24 10:34 cephalexin [From Keflex] Allergy Itching Verified 04/13/24 10:34 Physical Exam Vitals: Vital Signs Pulse Resp Pulse Ox 05/28/24 07:59 102 H 18 96 05/28/24 07:43 16 96 Intake and Output 05/27/24 05/28/24 05/28/24 22:59 06:59 14:59 Other: Weight 108.862 kg General Impression: Alert and oriented x3, not in acute distress, disheveled covered in feces HEENT: Normocephalic atraumatic, extra-ocular movements intact, pupils equal and reactive to light bilaterally, mucous membranes moist. Cardiovascular: Heart regular rate and rhythm Chest: Able to complete full sentences, no retractions, no tachypnea Abdomen: abdomen soft, non-tender, non-distended, no organomegaly Musculoskeletal: Pulses present and equal in all extremities, no peripheral edema Motor: no focal deficits noted Neurological: CN II-XII grossly intact, no focal motor or sensory deficits noted Skin: Severe skin breakdown near her ostomy site extending to the groin Psych: Normal affect and mood Results CBC & Chem 7: 05/28/24 08:15 05/28/24 08:15 Labs: Abnormal Lab Results - Last 24 Hours (Table) 05/28/24 05/28/24 Range/Units 08:15 08:15 WBC 3.4 L (3.8-10.6) k/uL RDW 16.4 H (11.5-15.5) % Plt Count 111 L (150-450) k/uL Lymphocytes # 0.7 L (1.0-4.8) k/uL Sodium 136 L (137-145) mmol/L Carbon Dioxide 20 L (22-30) mmol/L BUN <2 L (7-17) mg/dL Creatinine 0.48 L (0.52-1.04) mg/dL AST 145 H (14-36) U/L ALT 60 H (4-34) U/L Total Protein 6.2 L (6.3-8.2) g/dL Lipase 3028 H (23-300) U/L Serum Alcohol 366 H* mg/dL Assessment and Plan Assessment: 1. Alcohol intoxication with pending withdrawal -- Patient has been placed on IV Ativan per [facility] protocol; start patient on thiamine and folic acid -- IV fluids in form of normal saline at rate of 130 cc an hour 2. Acute alcohol induced pancreatitis; patient remains n.p.o.; will hold home dose of Protonix and start patient on Protonix 40 mg IV every 12 hours -- Pain control with IV morphine 2 to 4 mg every 6 hours as needed -Continue with IV fluids normal saline at a rate of 130 cc an hour 3. Falls/closed head injury; CT of the head is negative for any acute injury or intracranial process; will continue to monitor patient closely 4. Transaminitis likely related to chronic alcohol abuse; plan to monitor liver enzymes periodically 5. Gastroesophageal reflux disease; patient takes Protonix 40 mg daily 6. Depression/sleep disorder; trazodone 150 mg p.o. nightly DVT prophylaxis; SCDs/subcu heparin CODE STATUS; full code
[2024-05-28] MEDS: THIAMINE 100 MG TAB PO SCH (16:00)
[2024-05-28] MEDS: SODIUM CHLORIDE 0.9% 1,000 ML IV SCH (18:18)
[2024-05-28] MEDS: ONDANSETRON 4 MG/2 ML VIAL IVP PRN (18:19)
[2024-05-28] MEDS: MORPHINE SULFATE 4 MG/ML SYRINGE IV PRN (18:19)
[2024-05-28] MEDS: PANTOPRAZOLE 40 MG/10 ML VIAL IVP SCH (18:19)
[2024-05-28] MEDS: HEPARIN SODIUM,PORCINE 5,000 UNIT/ML 1 ML VIAL SQ SCH (22:47)
[2024-05-29 08:45] LABS: Basophils # (A) 0.02 X 10*3/uL (0.00-0.10); Basophils % (A) 0.6 %; Eosinophils # (A) 0.04 X 10*3/uL (0.04-0.35); Eosinophils % (A) 1.3 %; HCT 31.1 % (37.2-46.3); Lymphocytes # (A) 0.49 X 10*3/uL (0.90-5.00); Lymphocytes % (A) 15.3 %; MCH 28.9 pg (27.0-32.0); MCHC 32.2 g/dL (32.0-37.0); MCV 89.9 FL (80.0-97.0); Mean Platelet Volume 10.6 FL (9.5-12.2); Monocytes # (A) 0.52 X 10*3/uL (0.20-1.00); Monocytes % (A) 16.3 %; NRBC Per 100 WBC 0 X 10*3/uL (0.00-0.01); Neutrophils # (A) 2.06 X 10*3/uL (1.80-7.70); Neutrophils % (A) 64.3 %; Platelet Count 96 X 10*3/uL (140-440); RBC 3.46 X 10*6/uL (4.10-5.20); RDW 17.6 % (11.5-14.5)
[2024-05-29 09:31] LABS: Blood Urea Nitrogen 5.3 mg/dL (9.0-27.0); Calcium 8.5 mg/dL (8.7-10.3); Carbon Dioxide 18.2 mmol/L (21.6-31.8); Chloride 100 mmol/L (96-109); Glucose 62 mg/dL (70-110); Potassium 3.8 mmol/L (3.5-5.5); Sodium 138 mmol/L (135-145)
[2024-05-29 09:43] LABS: Lipase 761 U/L (14-63)
[2024-05-29] MEDS: traZODone HCL 50 MG TAB PO SCH (20:48)
--- NOTE | 2024-05-30 02:19 | PN ---
PROGRESS NOTE DATE OF SERVICE: 05/29/2024 SUBJECTIVE: This is a 58-year-old woman, who was admitted with alcohol intoxication, also had features of acute pancreatitis also. No chest pain. No palpitation. OBJECTIVE: VITAL SIGNS: Pulse is 91, blood pressure 120/62, respirations 16. CHEST: A few scattered rhonchi. ABDOMEN: Soft, mild tenderness. LEGS: No edema. NERVOUS SYSTEM: Nonfocal. LABORATORY DATA: Lipase 761, alcohol 366. ASSESSMENT: 1. Acute alcohol intoxication. 2. Acute alcohol-related pancreatitis. 3. Falls and closed injury. 4. Multiple medical issues. RECOMMENDATIONS: Recommend to continue current management and continue symptomatic treatment. We will initiate oral feeds and otherwise repeat labs. Guarded prognosis because of multiple complex medical issues. [facility] protocol. Further recommendations to follow. MMODL / IJN: [id number] /
[2024-05-30 08:37] LABS: Basophils # (A) 0.01 X 10*3/uL (0.00-0.10); Basophils % (A) 0.4 %; Eosinophils # (A) 0.03 X 10*3/uL (0.04-0.35); Eosinophils % (A) 1.3 %; HCT 28.4 % (37.2-46.3); HGB 9.1 g/dL (12.0-15.0); Lymphocytes # (A) 0.44 X 10*3/uL (0.90-5.00); Lymphocytes % (A) 19.1 %; MCH 29.1 pg (27.0-32.0); MCV 90.7 FL (80.0-97.0); Mean Platelet Volume 10.6 FL (9.5-12.2); Monocytes % (A) 17.4 %; NRBC Per 100 WBC 0 X 10*3/uL (0.00-0.01); Neutrophils # (A) 1.37 X 10*3/uL (1.80-7.70); Neutrophils % (A) 59.6 %; Platelet Count 84 X 10*3/uL (140-440); RBC 3.13 X 10*6/uL (4.10-5.20); RDW 17.4 % (11.5-14.5)
[2024-05-30 08:52] LABS: Amylase 167 U/L (23-121)
[2024-05-30 09:04] LABS: Lipase 1033 U/L (14-63)
[2024-05-30] MEDS: MULTIVITAMINS, THERA 1 EACH TAB PO SCH (09:11)
[2024-05-30 10:32] LABS: ALT 43 U/L (8-44); AST 66 U/L (13-35); Albumin 3.2 g/dL (3.8-4.9); Albumin/Globulin Ratio 1.88 Ratio (1.60-3.17); Alkaline Phosphatase 66 U/L (41-126); Blood Urea Nitrogen 3.8 mg/dL (9.0-27.0); Calcium 8.2 mg/dL (8.7-10.3); Carbon Dioxide 20.4 mmol/L (21.6-31.8); Chloride 100 mmol/L (96-109); Globulin 1.7 g/dL (1.6-3.3); Glucose 109 mg/dL (70-110); Potassium 3.3 mmol/L (3.5-5.5); Sodium 134 mmol/L (135-145); Total Bilirubin 0.9 mg/dL (0.3-1.2); Total Protein 4.9 g/dL (6.2-8.2)
[2024-05-30] MEDS ORDERED: HYDROcodone/APAP 5-325MG 1 EACH TAB PO PRN (13:36)
[2024-05-30] MEDS ORDERED: ACETAMINOPHEN TAB 325 MG TAB PO PRN (14:50)
--- NOTE | 2024-05-31 05:37 | P.PN ---
Subjective Progress Note Date: 05/30/24 58-year-old female, history of hypertension, DVT, who presents to the emergency department after fall. Patient has history of alcohol abuse. This morning she woke up and tripped over her cat. She fell hit the back of her right head. According to EMS records patient sustained a laceration. Patient has history of ostomy. She has been having significant acute on chronic skin breakdown near her ostomy site. Patient denies any arm or extremity pain. Denies any chest or abdominal pain upon arrival to ED. No shortness of breath. According to EMS patient takes anticoagulation medications. Patient is awake at the time of evaluation and does report nausea and abdominal pain worse in the epigastric area Labs completed in ED revealed WBC of 3.4, hemoglobin of 11.7 and platelet count of 111, sodium 136, potassium 3.5, BUNs/creatinine of 2/0.48 and blood glucose of 93, AST elevated at 145 ALT of 60, lipase 3028 with blood alcohol level of 366 CT of the head and cervical spine completed in ED does not show any acute intracranial hemorrhage or ischemic changes; nasal septal deviation with mucosal cell thickening of ethmoid and maxillary sinuses 05/30/2024 Patient is seen and evaluated in follow-up mentation is much improved patient is more alert and oriented to baseline and reports she feels continued weakness and awaiting to work with PT/OT therapy. Patient is maintained on CIWA protocol and will continue for now. Continue IV hydration although decrease the rate and will follow-up with repeat labs. Patient maintained on hydration for acute pancreatitis. Patient has residual groin rash that appears fungal will add nystatin. Review of systems: Constitutional: No reports of fatigue, fever, or chills Cardiovascular: No reports of chest pain or palpitations Respiratory: No reports of shortness of breath or cough GI: No no diarrhea reports of nausea, no reports of vomiting, : No reports of dysuria or retention Neurovascular: reports of generalized weakness, difficulty ambulating All medications have been reviewed PHYSICAL EXAMINATION: GENERAL: The patient is alert and oriented x2-3, baseline, Well developed, well nourished. Elderly appearing, obese HEENT: Pupils are round and equally reacting to light. EOMI. no scleral icterus. No conjunctival pallor. Normocephalic, atraumatic. No pharyngeal erythema. No thyromegaly. CARDIOVASCULAR: S1 and S2 muffled PULMONARY: diminished breath sounds bilaterally with no wheezing or rhonchi noted. ABDOMEN: soft. Nontender on exam. obese. non-distended, normoactive bowel sounds. No palpable organomegaly. Bilateral groin area showing some improvements but appears to be previous fungal or yeast infection, ostomy noted on the left and stoma with stool noted in the ostomy MUSCULOSKELETAL: No joint swelling or deformity. EXTREMITIES: No cyanosis, clubbing, or pedal edema. NEUROLOGICAL: Gross neurological examination did not reveal any focal deficits. Diffuse weakness SKIN: No rashes. Assessment: Acute alcohol intoxication Acute alcohol related pancreatitis Frequent falls with gait dysfunction Obesity with a BMI of 30.8 Transaminitis likely related to chronic alcohol abuse History of GERD History of depression and sleep disorder GI prophylaxis DVT prophylaxis Full code Plan: Recommend to continue with current medications and management and will continue with CIWA protocol as needed. Patient maintained on gentle hydration of normal saline and will reduce the rate and follow-up on repeat labs. Replace electrolytes per protocol Awaiting PT/OT therapy evaluation and will discuss with case management/social work regarding possible needs for rehab Encouraged increase activity as tolerated Patient reporting some irritation in the groin area that persists and will add nystatin powder and monitor for improvements. On exam this does appear to be chronic and ongoing and appears to be healing from previous excoriation Due to multiple complex medical issues, prognosis is guarded. Patient is high risk for readmissions given patient's continued alcohol use and noncompliance Possible discharge planning in the next 24 to 48 hours The impression and plan of care has been dictated by Monica Banda, nurse practitioner as directed. Dr. Adelfo MD I have performed a history and examination and MDM of this patient, discussed the same with the dictator, and agree with the dictator's assessment and plan as written ,documented as a scribe. Based on total visit time, I have performed more than 50% of the visit. Any additional findings or plans will be noted. Objective - Vital Signs Vital signs: Vital Signs Temp 98.4 F 05/31/24 01:54 Pulse 93 05/31/24 01:54 Resp 16 05/31/24 01:54 BP 135/86 05/31/24 01:54 Pulse Ox 95 05/31/24 01:54 FiO2 Intake & Output 05/30/24 05/30/24 05/31/24 06:59 18:59 06:59 Other: Voiding Method Toilet Toilet # Voids 3 2 - Labs CBC & Chem 7: 05/30/24 02:57 05/30/24 02:57 Labs: Abnormal Lab Results - Last 24 Hours (Table) 05/30/24 05/30/24 Range/Units 02:57 02:57 WBC 2.30 L (4.50-10.00) X 10*3/uL RBC 3.13 L (4.10-5.20) X 10*6/uL Hgb 9.1 L (12.0-15.0) g/dL Hct 28.4 L (37.2-46.3) % RDW 17.4 H (11.5-14.5) % Plt Count 84 L (140-440) X 10*3/uL Immature Gran # 0.05 H (0.00-0.04) X 10*3/uL Neutrophils # 1.37 L (1.80-7.70) X 10*3/uL Lymphocytes # 0.44 L (0.90-5.00) X 10*3/uL Eosinophils # 0.03 L (0.04-0.35) X 10*3/uL Sodium 134 L (135-145) mmol/L Potassium 3.3 L (3.5-5.5) mmol/L Carbon Dioxide 20.4 L (21.6-31.8) mmol/L Anion Gap 13.60 H (4.00-12.00) mmol/L BUN 3.8 L (9.0-27.0) mg/dL Creatinine 0.5 L (0.6-1.5) mg/dL BUN/Creatinine Ratio 7.60 L (12.00-20.00) Ratio Calcium 8.2 L (8.7-10.3) mg/dL AST 66 H (13-35) U/L Total Protein 4.9 L (6.2-8.2) g/dL Albumin 3.2 L (3.8-4.9) g/dL Amylase 167 H (23-121) U/L Lipase 1033 H (14-63) U/L
[2024-05-31 09:06] LABS: BUN/Creat Ratio <7.00 Ratio (12.00-20.00); Blood Urea Nitrogen <3.5 mg/dL (9.0-27.0); Carbon Dioxide 24.5 mmol/L (21.6-31.8); Chloride 104 mmol/L (96-109); Glucose 130 mg/dL (70-110); Potassium 3.2 mmol/L (3.5-5.5); Sodium 138 mmol/L (135-145)
[2024-05-31] MEDS: ZINC OXIDE PASTE (Z-GUARD) 1 APPLIC TOPICAL PRN (09:14)
[2024-05-31 09:58] LABS: Amylase 153 U/L (23-121); Magnesium 1.2 mg/dL (1.5-2.4)
[2024-05-31 10:09] LABS: Lipase 1019 U/L (14-63)
[2024-05-31 12:20] VITALS: BP 126/80; PULSE 94; RESP 16; TEMP 98.8
[2024-05-31] MEDS ORDERED: Potassium Replacement Protocol 1 EACH MISC MISCELLANE PRN (12:50)
[2024-05-31] MEDS ORDERED: Magnesium Replacement Protocol 1 EACH MISC MISCELLANE PRN (12:50)
[2024-05-31] MEDS: MAGNESIUM SULFATE-D5W PMX 1 GM in DEXTROSE/WATER 1 100ML.BAG IVPB SCH (13:10)
[2024-05-31] MEDS: POTASSIUM CHLORIDE ER 20 MEQ TAB.ER PO SCH (13:11)
[2024-05-31] MEDS: NYSTATIN 100,000 UNIT/GM POWD 15 GM TOPICAL SCH (14:16)
--- NOTE | 2024-06-01 09:57 | P.DS ---
Providers Date of admission: 05/28/24 11:44 Expected date of discharge: 05/31/24 Attending physician: Dinorah Neves MD Primary care physician: Constantine Figueroa Hospital Course: Final diagnosis Acute alcohol intoxication Acute alcohol related pancreatitis, improved Hypomagnesemia, being replaced Frequent falls with gait dysfunction Obesity with a BMI of 30.8 Transaminitis likely related to chronic alcohol abuse History of GERD History of depression and sleep disorder GI prophylaxis DVT prophylaxis Full code Discharge disposition Patient is being discharged in a stable condition with guarded prognosis to home with home care. Patient will follow-up with Dr. Figueroa in the outpatient setting upon discharge. Patient is to continue with complete alcohol abstinence and strongly recommend inpatient alcohol rehab and AA meetings. Patient will be following up with [facility] to arrange for assistance or transportation for AA meetings. Total time taken is greater than 35 minutes. Hospital course This is a 58-year-old female who was recently admitted with alcohol intoxication with acute alcohol related pancreatitis and recurrent falls. Patient maintained on CIWA protocol although not actively withdrawing was lethargic initially although back to baseline. Patient maintained on IV hydration showing improvements and denies any further abdominal pain and is tolerating diet. Patient reports she wants to quit drinking and will be following with [facility] outpatient to arrange for help with going to AA meetings. Patient reports she has been to inpatient rehab before which did not help. Patient strongly encouraged to follow-up with [facility] on discharge and complete alcohol cessation. Currently no reports of chest pain, shortness of breath, or palpitations. Patient is afebrile. No reports of nausea or vomiting and patient is tolerating diet. Patient will be discharged home today. Patient had magnesium and potassium replacement on discharge and recommend repeat labs at her primary care provider's office in the next few days. Prognosis is guarded and high risk for readmissions given patient's continued alcohol abuse and noncompliance. Physical exam: Gen: This is a 58-year-old female who is awake, alert and oriented x 3, well- developed, well nourished, elderly appearing, obese HEENT: Head is atraumatic, normocephalic. Pupils equal, round. Sclerae is anicteric. NECK: Supple. No JVD. No lymphadenopathy. No thyromegaly. LUNGS: Clear to auscultation. No wheezes or rhonchi. No intercostal retractions. HEART: Regular rate and rhythm. No murmur. ABDOMEN: Soft. Obese, left side ostomy noted with stool and gas. Bowel sounds are present. No masses. No tenderness. EXTREMITIES: No pedal edema. No calf tenderness. Bilateral groin mild excoriation yeastlike, improving that was present on admission NEUROLOGICAL: Patient is awake, alert and oriented x3. Cranial nerves 2 through 12 are grossly intact. Diffusely weak Please refer to medication reconciliation sheet for a list of medications. The impression and plan of care has been dictated by Monica Banda, Nurse Practitioner as directed. Dr. Adelfo MD I have performed a history and examination and MDM of this patient, discussed the same with the dictator, and agree with the dictator's assessment and plan as written ,documented as a scribe. Based on total visit time, I have performed more than 50% of the visit. Patient Condition at Discharge: Fair Plan - Discharge Summary Discharge Rx Participant: Yes New Discharge Prescriptions: New Nystatin 100,000 Unit/gm Powd [Mycostatin Powder] 1 applic TOPICAL BID #1 each Acetaminophen Tab [Tylenol] 650 mg PO Q6HR PRN tab PRN Reason: Fever And/ Or Pain Continue traZODone HCL [Desyrel] 150 mg PO HS #30 tab Thiamine [Vitamin B-1] 100 mg PO DAILY #30 tablet Pantoprazole [Protonix] 40 mg PO AC-BRKFST #30 tab Multivitamins, Thera [Multivitamin (formulary)] 1 tab PO DAILY #30 tablet Discharge Medication List Multivitamins, Thera [Multivitamin (formulary)] 1 tab PO DAILY #30 tablet 03/21/24 [Rx] Thiamine [Vitamin B-1] 100 mg PO DAILY #30 tablet 03/21/24 [Rx] traZODone HCL [Desyrel] 150 mg PO HS #30 tab 03/21/24 [Rx] Pantoprazole [Protonix] 40 mg PO AC-BRKFST #30 tab 04/14/24 [Rx] Acetaminophen Tab [Tylenol] 650 mg PO Q6HR PRN tab 05/31/24 [Rx] Nystatin 100,000 Unit/gm Powd [Mycostatin Powder] 1 applic TOPICAL BID #1 each 05/31/24 [Rx] Follow up Appointment(s)/Referral(s): [facility] [NON-STAFF] - 1 Week Constantine Figueroa DO [Primary Care Provider] - 1-2 days (The office was not available to take calls please call and make follow up appointment.) Patient Instructions/Handouts: Pancreatitis (DC), Pancreatitis (GEN), Alcohol Intoxication (DC) Activity/Diet/Wound Care/Special Instructions: Colostomy Care: Apply no sting skin prep to any reddened peristomal skin, apply a thin layer of stoma powder, and repeat application of no sting skin prep; if open and moist areas are present under barrier apply hydrocolloid dressing after application of no sting skin prep and stoma powder Apply [place] appliance #[id number] cut to fit appliance over skin prepped area (and over hydrocolloid if applied). Change the appliance with any signs of stool leakage and every 3 to 5 days. Ensure that appliance is emptied when no more than half full to prevent leaks. Do not apply Zinc barrier cream directly under adhesive part of ostomy appliance. Discharge/Stand Alone Forms: AA Tejinder Kohli [facility] Resources, Outpatient Counseling, In Substance Abuse Facilities Discharge Disposition: HOME SELF-CARE
== END 2024-05-31 15:55 | disposition home or self-care (01) | DRG 896 ==
LOC: EC 07:13 → 5NMEDONC 11:44
PROVIDERS: ADMIT Internal Medicine; ATTEND Internal Medicine
DX: F10.129 Alcohol abuse with intoxication, unspecified (principal); K85.20 Alcohol induced acute pancreatitis without necrosis or infection; S09.90XA Unspecified injury of head, initial encounter; E66.9 Obesity, unspecified; F32.A Depression, unspecified; I10 Essential (primary) hypertension; Z68.30 Body mass index [BMI] 30.0-30.9, adult; R74.01 Elevation of levels of liver transaminase levels; K21.9 Gastro-esophageal reflux disease without esophagitis; R29.6 Repeated falls; R26.9 Unspecified abnormalities of gait and mobility; G47.9 Sleep disorder, unspecified; B36.9 Superficial mycosis, unspecified; E87.6 Hypokalemia; E83.42 Hypomagnesemia; F41.9 Anxiety disorder, unspecified; W01.0XXA Fall on same level from slipping, tripping and stumbling without subsequent striking against object, initial encounter; Y90.8 Blood alcohol level of 240 mg/100 ml or more; Z79.899 Other long term (current) drug therapy; Z86.718 Personal history of other venous thrombosis and embolism; Z93.3 Colostomy status; Z88.1 Allergy status to other antibiotic agents; Z88.3 Allergy status to other anti-infective agents; Z82.5 Family history of asthma and other chronic lower respiratory diseases
CPT/HCPCS: 36415; 70450; 71046; 72125; 72170; 80048; 80053; 80320; 82150; 83690; 83735; 85025; 93005; 96361; 96372; 96374; 96375; 99285

== ENCOUNTER 2024-06-05 16:13 | Emergency (ER) | payer MEDICARE, OTHER ==
--- NOTE | 2024-06-05 16:34 | ED ---
Fall HPI - General Chief Complaint: Fall Stated Complaint: Fall/Head Time Seen by Provider: 06/05/24 16:15 Source: patient, EMS, RN notes reviewed Mode of arrival: EMS Limitations: no limitations - History of Present Illness Initial Comments: 58-year-old female presents emergency department with chief complaint of head injury. Patient states she tripped over her cat striking her head. She is unsure when her last tetanus was. Patient had no loss conscious patient states she takes Xarelto for blood clot in her left leg states that she has mild heada javier no neck pain but placed in c-collar by EMS. No other injuries noted other than old bruising in which she was evaluated for prior. - Related Data Previous Rx's Medication Instructions Recorded Multivitamins, Thera [Multivitamin 1 tab PO DAILY #30 tablet 03/21/24 (formulary)] Thiamine [Vitamin B-1] 100 mg PO DAILY #30 tablet 03/21/24 traZODone HCL [Desyrel] 150 mg PO HS #30 tab 03/21/24 Pantoprazole [Protonix] 40 mg PO AC-BRKFST #30 tab 04/14/24 Acetaminophen Tab [Tylenol] 650 mg PO Q6HR PRN tab 05/31/24 Nystatin 100,000 Unit/gm Powd 1 applic TOPICAL BID #1 each 05/31/24 [Mycostatin Powder] Allergies Allergy/AdvReac Type Severity Reaction Status Date / Time bacitracin Allergy Rash/Hives Verified 06/05/24 16:21 cephalexin [From Keflex] Allergy Itching Verified 06/05/24 16:21 Review of Systems ROS Statement: Those systems with pertinent positive or pertinent negative responses have been documented in the HPI. ROS Other: All systems not noted in ROS Statement are negative. Past Medical History Past Medical History: Deep Vein Thrombosis (DVT), Hypertension Additional Past Medical History / Comment(s): concussion History of Any Multi-Drug Resistant Organisms: None Reported Past Surgical History: Bowel Resection Additional Past Surgical History / Comment(s): jaw surgery, colostomy 01/2023 Past Anesthesia/Blood Transfusion Reactions: No Reported Reaction Past Psychological History: Anxiety, Depression Smoking Status: Former smoker Past Alcohol Use History: Abuse, Daily, Heavy Past Drug Use History: None Reported - Past Family History Father Additional Family Medical History / Comment(s): Spleen CA Mother Family Medical History: COPD Additional Family Medical History / Comment(s): empysema General Exam Limitations: no limitations General appearance: alert, in no apparent distress Head exam: Present: atraumatic, normocephalic. Absent: normal inspection (Posterior scalp laceration) Eye exam: Present: normal appearance, PERRL, EOMI. Absent: scleral icterus, conjunctival injection, periorbital swelling ENT exam: Present: normal exam, normal oropharynx, mucous membranes moist Neck exam: Present: normal inspection. Absent: tenderness, meningismus, full ROM (In c-collar), lymphadenopathy Respiratory exam: Present: normal lung sounds bilaterally. Absent: respiratory distress, wheezes, rales, rhonchi, stridor Cardiovascular Exam: Present: regular rate, normal rhythm, normal heart sounds. Absent: systolic murmur, diastolic murmur, rubs, gallop, clicks GI/Abdominal exam: Present: soft, normal bowel sounds. Absent: distended, tenderness, guarding, rebound, rigid Neurological exam: Present: alert, oriented X3, CN II-XII intact, reflexes normal. Absent: motor sensory deficit Skin exam: Present: warm, dry, intact, normal color. Absent: rash Course Vital Signs 06/05/24 06/05/24 16:17 18:09 Temperature 98.4 F 98.1 F Pulse Rate 81 56 L Respiratory 16 18 Rate Blood Pressure 108/69 107/69 O2 Sat by Pulse 95 99 Oximetry Procedures - Laceration Laceration #1 Consent Obtained: verbal consent Indication: laceration Site: scalp Size (cm): 3 Description: irregular Depth: simple, single layer Pre-repair: wound explored, irrigated extensively Type of Sutures: other (Javier) Number of Sutures: 3 Patient Tolerated Procedure: well, no complications Medical Decision Making - Medical Decision Making Was pt. sent in by a medical professional or institution (, PA, SHIFT LAB TECHNICIAN, urgent care, hospital, or group home...) When possible be specific @ -No Did you speak to anyone other than the patient for history (EMS, parent, family, police, friend...)? What history was obtained from this source @ -No Did you review nursing and triage notes (agree or disagree)? Why? @ -I reviewed and agree with nursing and triage notes Were old charts reviewed (outside hosp., previous admission, EMS record, old EKG, old radiological studies, urgent care reports/EKG's, group home records)? Report findings @ -No old charts were reviewed Differential Diagnosis (chest pain, altered mental status, abdominal pain women, abdominal pain men, vaginal bleeding, weakness, fever, dyspnea, syncope, headache, dizziness, GI bleed, back pain, seizure, CVA, palpatations, mental health, musculoskeletal)? @ -Scalp laceration, intracranial hemorrhage, skull fracture, cervical fracture EKG interpreted by me (3pts min.). @ -None X-rays interpreted by me (1pt min.). @ -None done CT interpreted by me (1pt min.). @ -CT brain, C-spine no acute abnormality no acute fracture or intracranial hemorrhage or cervical fracture U/S interpreted by me (1pt. min.). @ -None done What testing was considered but not performed or refused? (CT, X-rays, U/S, labs)? Why? @ -None What meds were considered but not given or refused? Why? @ -None Did you discuss the management of the patient with other professionals (professionals i.e. , PA, SHIFT LAB TECHNICIAN, lab, RT, psych nurse, social media assistant, plant engineering supervisor, teacher, health officer, behavioral health case manager)? Give summary @ -No Was smoking cessation discussed for >3mins.? @ -No Was critical care preformed (if so, how long)? @ -No Were there social determinants of health that impacted care today? How? (Homelessness, low income, unemployed, alcoholism, drug addiction, transportation, low edu. Level, literacy, decrease access to med. care, shelter, rehab)? @ -No Was there de-escalation of care discussed even if they declined (Discuss DNR or withdrawal of care, Hospice)? DNR status @ -No What co-morbidities impacted this encounter? (DM, HTN, Smoking, COPD, CAD, Cancer, CVA, ARF, Chemo, Hep., AIDS, mental health diagnosis, sleep apnea, morbid obesity)? @ -None Was patient admitted / discharged? Hospital course, mention meds given and route, prescriptions, significant lab abnormalities, going to OR and other pertinent info. @ -[discharge patient presented after a mechanical fall scalp laceration this was repaired patient did have CT given patient on blood thinners patient discharged in stable condition with return parameters discussed. Undiagnosed new problem with uncertain prognosis? @ -No Drug Therapy requiring intensive monitoring for toxicity (Heparin, Nitro, Insulin, Cardizem)? @ -No Were any procedures done? @ -No Diagnosis/symptom? @ -Scalp laceration, head injury Acute, or Chronic, or Acute on Chronic? @ -Acute Uncomplicated (without systemic symptoms) or Complicated (systemic symptoms)? @ -Uncomplicated Side effects of treatment? @ -No Exacerbation, Progression, or Severe Exacerbation? @ -No Poses a threat to life or bodily function? How? (Chest pain, [place], [place], pneumonia, PE, COPD, DKA, ARF, appy, cholecystitis, CVA, Diverticulitis, Homicidal, Suicidal, threat to staff... and all critical care pts) @ -No Disposition Clinical Impression: Occipital scalp laceration Disposition: HOME SELF-CARE Condition: Stable Instructions (If sedation given, give patient instructions): Head Laceration (ED) Additional Instructions: Javier removed in 10 days. Please return to the Emergency Department if symptoms worsen or any other concerns. Is patient prescribed a controlled substance at d/c from ED?: No Referrals: Constantine Figueroa DO [Primary Care Provider] - 1-2 days Time of Disposition: 17:48
[2024-06-05] MEDS: DIPH,PERTUS(ACELL)TETVAC-LF 0.5 ML VIAL IM ONE (16:35)
--- NOTE | 2024-06-05 17:26 | CT ---
EXAMINATION TYPE: CT brain radha oreilly con DATE OF EXAM: 06/05/2024 COMPARISON: 05/28/2024 HISTORY: pain after fall CT DLP: 1504.2 mGycm Automated exposure control for dose reduction was used. TECHNIQUE: CT scan of the head and cervical spine are performed without contrast. Findings: Head CT: Ventricles, basal cisterns and sulci over convexities within normal limits for the patient's age and there is no mass, mass effect or shift of midline structures. No abnormal density is seen throughout the brain parenchyma and there is no acute intra or extra-axia l hemorrhage. Posterior fossa including the brainstem, fourth ventricle and cerebellar pontine angles are grossly n ormal. There is an air-fluid level in left maxillary sinus indicating acute sinusitis. Remaining paranasal s inuses and mastoid air cells are well aerated. The intraorbital contents appear normal and symmetric. CT cervical spine: Craniovertebral junction relationships and prevertebral soft tissues are normal. The cervical vertebral segments are normal in height and alignment and there is no fracture subluxati on. There is mild spondylosis minimal disc space narrowing at the C3-4, C4-5, C5-6 and C6-7 levels indica ting mild degenerative disc disease The bony cervical canal is widely patent and there is no bony encroachment of the neural foramina. The paraspinal soft tissues unremarkable. IMPRESSION: 1. Head CT: No acute bleed or mass effect. 2. CT cervical spine: No acute trauma. Mild degenerative disc disease throughout the mid and lower ce rvical spine. Moderate bony neural foraminal encroachment at C3-4 on the right. [facility], Workstation: JACE 06/05/2024 5:24 PM
[2024-06-05 18:11] VITALS: BP 107/69; PULSE 56; RESP 18; TEMP 98.1
== END 2024-06-05 18:11 | disposition home or self-care (01) ==
LOC: EC 16:13
CPT/HCPCS: 12002; 70450; 72125; 90471; 90715; 99284

== ENCOUNTER 2024-06-06 17:19 | Observation (INO) | payer MEDICARE, OTHER ==
--- NOTE | 2024-06-06 18:41 | ED ---
Fall HPI - General Chief Complaint: Fall Stated Complaint: Fall Time Seen by Provider: 06/06/24 17:23 Source: patient, EMS, RN notes reviewed Mode of arrival: EMS Limitations: no limitations - History of Present Illness Initial Comments: 58-year-old female presents emergency room via EMS chief complaint of a fall. Patient is intoxicated states that she drank a large amount alcohol today. She fell striking her head she was seen here yesterday for a fall with a head laceration. Patient does take blood thinners. Patient denies any hip pain no back pain no neck pain currently. - Related Data Previous Rx's Medication Instructions Recorded Multivitamins, Thera [Multivitamin 1 tab PO DAILY #30 tablet 03/21/24 (formulary)] Thiamine [Vitamin B-1] 100 mg PO DAILY #30 tablet 03/21/24 traZODone HCL [Desyrel] 150 mg PO HS #30 tab 03/21/24 Pantoprazole [Protonix] 40 mg PO AC-BRKFST #30 tab 04/14/24 Acetaminophen Tab [Tylenol] 650 mg PO Q6HR PRN tab 05/31/24 Nystatin 100,000 Unit/gm Powd 1 applic TOPICAL BID #1 each 05/31/24 [Mycostatin Powder] Allergies Allergy/AdvReac Type Severity Reaction Status Date / Time bacitracin Allergy Rash/Hives Verified 06/06/24 17:27 cephalexin [From Keflex] Allergy Itching Verified 06/06/24 17:27 Review of Systems ROS Statement: Those systems with pertinent positive or pertinent negative responses have been documented in the HPI. ROS Other: All systems not noted in ROS Statement are negative. Past Medical History Past Medical History: Deep Vein Thrombosis (DVT), Hypertension Additional Past Medical History / Comment(s): concussion History of Any Multi-Drug Resistant Organisms: None Reported Past Surgical History: Bowel Resection Additional Past Surgical History / Comment(s): jaw surgery, colostomy 01/2023 Past Anesthesia/Blood Transfusion Reactions: No Reported Reaction Past Psychological History: Anxiety, Depression Smoking Status: Former smoker Past Alcohol Use History: Abuse, Daily, Heavy Past Drug Use History: None Reported - Past Family History Father Additional Family Medical History / Comment(s): Spleen CA Mother Family Medical History: COPD Additional Family Medical History / Comment(s): empysema General Exam Limitations: no limitations General appearance: alert, in no apparent distress Head exam: Present: atraumatic, normocephalic. Absent: normal inspection (Chandler in the occipital region) Eye exam: Present: normal appearance, PERRL, EOMI. Absent: scleral icterus, conjunctival injection, periorbital swelling ENT exam: Present: normal exam, mucous membranes moist Neck exam: Present: normal inspection. Absent: tenderness, meningismus, full ROM (C-collar), lymphadenopathy Respiratory exam: Present: normal lung sounds bilaterally. Absent: respiratory distress, wheezes, rales, rhonchi, stridor Cardiovascular Exam: Present: regular rate, normal rhythm, normal heart sounds. Absent: systolic murmur, diastolic murmur, rubs, gallop, clicks GI/Abdominal exam: Present: soft, normal bowel sounds. Absent: distended, tenderness, guarding, rebound, rigid Neurological exam: Present: alert, oriented X3 Course Vital Signs 06/06/24 17:22 Temperature 97.9 F Pulse Rate 85 Respiratory 18 Rate Blood Pressure 125/83 O2 Sat by Pulse 95 Oximetry Medical Decision Making - Medical Decision Making Was pt. sent in by a medical professional or institution (, PA, HOUSING OFFICER, urgent care, hospital, or snf...) When possible be specific @ -No Did you speak to anyone other than the patient for history (EMS, parent, family, police, friend...)? What history was obtained from this source @ -No Did you review nursing and triage notes (agree or disagree)? Why? @ -I reviewed and agree with nursing and triage notes Were old charts reviewed (outside hosp., previous admission, EMS record, old EKG, old radiological studies, urgent care reports/EKG's, snf records)? Report findings @ -Reviewed CT from yesterday brain, C-spine Differential Diagnosis (chest pain, altered mental status, abdominal pain women, abdominal pain men, vaginal bleeding, weakness, fever, dyspnea, syncope, headache, dizziness, GI bleed, back pain, seizure, CVA, palpatations, mental health, musculoskeletal)? @ -Multiple falls, intracranial hemorrhage, skull fracture, cervical fracture, scalp laceration, alcohol desiccation EKG interpreted by me (3pts min.). @ -None X-rays interpreted by me (1pt min.). @ -None done CT interpreted by me (1pt min.). @ -CT brain, C-spine shows no acute intracranial hemorrhage or mass effect no cervical fracture U/S interpreted by me (1pt. min.). @ -None done What testing was considered but not performed or refused? (CT, X-rays, U/S, labs)? Why? @ -None What meds were considered but not given or refused? Why? @ -None Did you discuss the management of the patient with other professionals (professionals i.e. , PA, HOUSING OFFICER, lab, RT, psych nurse, adoption social worker, learning and development manager, teacher, co founder and chief strategy officer, case briefer)? Give summary @ -EMH for admission Was smoking cessation discussed for >3mins.? @ -No Was critical care preformed (if so, how long)? @ -No Were there social determinants of health that impacted care today? How? (Homelessness, low income, unemployed, alcoholism, drug addiction, transportation, low edu. Level, literacy, decrease access to med. care, longterm, rehab)? @ -No Was there de-escalation of care discussed even if they declined (Discuss DNR or withdrawal of care, Hospice)? DNR status @ -No What co-morbidities impacted this encounter? (DM, HTN, Smoking, COPD, CAD, Cancer, CVA, ARF, Chemo, Hep., AIDS, mental health diagnosis, sleep apnea, morbid obesity)? @ -None Was patient admitted / discharged? Hospital course, mention meds given and route, prescriptions, significant lab abnormalities, going to OR and other pert inent info. @ -Admitted patient has alcohol level 400. Patient's had multiple falls will be admitted Undiagnosed new problem with uncertain prognosis? @ -No Drug Therapy requiring intensive monitoring for toxicity (Heparin, Nitro, Insulin, Cardizem)? @ -No Were any procedures done? @ -No Diagnosis/symptom? @ -Alcohol intoxication, multiple falls Acute, or Chronic, or Acute on Chronic? @ -Acute Uncomplicated (without systemic symptoms) or Complicated (systemic symptoms)? @ -Uncomplicated Side effects of treatment? @ -No Exacerbation, Progression, or Severe Exacerbation? @ -No Poses a threat to life or bodily function? How? (Chest pain, [place], [place], pneumonia, PE, COPD, DKA, ARF, appy, cholecystitis, CVA, Diverticulitis, Homicidal, Suicidal, threat to staff... and all critical care pts) @ -No - Lab Data Result diagrams: 06/06/24 18:37 06/06/24 18:37 Lab Results 06/06/24 06/06/24 06/06/24 Range/Units 18:37 18:37 19:09 WBC 2.7 L (3.8-10.6) k/uL RBC 3.92 (3.80-5.40) m/uL Hgb 11.3 L (11.4-16.0) gm/dL Hct 36.3 (34.0-46.0) % MCV 92.7 (80.0-100.0) fL MCH 28.8 (25.0-35.0) pg MCHC 31.1 (31.0-37.0) g/dL RDW 17.6 H (11.5-15.5) % Plt Count 310 D (150-450) k/uL MPV 6.9 Neutrophils % 53 % Lymphocytes % 29 % Monocytes % 11 % Eosinophils % 2 % Basophils % 1 % Neutrophils # 1.4 (1.3-7.7) k/uL Lymphocytes # 0.8 L (1.0-4.8) k/uL Monocytes # 0.3 (0-1.0) k/uL Eosinophils # 0.1 (0-0.7) k/uL Basophils # 0.0 (0-0.2) k/uL Hypochromasia Slight Anisocytosis Slight Sodium 143 (137-145) mmol/L Potassium 3.9 (3.5-5.1) mmol/L Chloride 107 (98-107) mmol/L Carbon Dioxide 25 (22-30) mmol/L Anion Gap 11 mmol/L BUN <2 L (7-17) mg/dL Creatinine 0.46 L (0.52-1.04) mg/dL Est GFR (CKD-EPI)AfAm >90 (>60 ml/min/1.73 sqM) Est GFR (CKD-EPI)NonAf >90 (>60 ml/min/1.73 sqM) Glucose 72 L (74-99) mg/dL Calcium 8.2 L (8.4-10.2) mg/dL Magnesium 1.7 (1.6-2.3) mg/dL Total Bilirubin 0.7 (0.2-1.3) mg/dL AST 92 H (14-36) U/L ALT 58 H (4-34) U/L Alkaline Phosphatase 65 (38-126) U/L Total Protein 5.7 L (6.3-8.2) g/dL Albumin 3.3 L (3.5-5.0) g/dL Lipase 522 H (23-300) U/L Urine Color Colorless Urine Appearance Clear (Clear) Urine pH 5.0 (5.0-8.0) Ur Specific [place] 1.005 (1.001-1.035) Urine Protein Negative (Negative) Urine Glucose (UA) Negative (Negative) Urine Ketones Negative (Negative) Urine Blood Negative (Negative) Urine Nitrite Negative (Negative) Urine Bilirubin Negative (Negative) Urine Urobilinogen <2.0 (<2.0) mg/dL Ur Leukocyte Esterase Negative (Negative) Serum Alcohol 403 H* mg/dL Disposition Clinical Impression: Multiple falls, Alcohol intoxication Disposition: ADMITTED IP TO THIS HOSP Condition: Fair Referrals: Constantine Figueroa DO [Primary Care Provider] - 1-2 days Time of Disposition: 19:29
[2024-06-06] MEDS: SODIUM CHLORIDE 0.9% 1,000 ML IV ONE (18:56)
[2024-06-06 19:00] LABS: ALT 58 U/L (4-34); AST 92 U/L (14-36); African American GFR (CKD) >90 (>60 ml/min/1.73 sqM); Albumin 3.3 g/dL (3.5-5.0); Alkaline Phosphatase 65 U/L (38-126); Anion Gap 11 mmol/L; Blood Urea Nitrogen <2 mg/dL (7-17); Calcium 8.2 mg/dL (8.4-10.2); Carbon Dioxide 25 mmol/L (22-30); Chloride 107 mmol/L (98-107); Glucose 72 mg/dL (74-99); Lipase 522 U/L (23-300); Magnesium 1.7 mg/dL (1.6-2.3); Non-African American GFR(CKD) >90 (>60 ml/min/1.73 sqM); Potassium 3.9 mmol/L (3.5-5.1); Sodium 143 mmol/L (137-145); Total Bilirubin 0.7 mg/dL (0.2-1.3); Total Protein 5.7 g/dL (6.3-8.2)
[2024-06-06 19:10] LABS: Alcohol 403 mg/dL
[2024-06-06 19:11] LABS: Anisocytosis Slight; Basophils % (A) 1 %; Eosinophils # (A) 0.1 k/uL (0-0.7); Eosinophils % (A) 2 %; HCT 36.3 % (34.0-46.0); HGB 11.3 gm/dL (11.4-16.0); Hypochromasia Slight; Lymphocytes # (A) 0.8 k/uL (1.0-4.8); Lymphocytes % (A) 29 %; MCH 28.8 pg (25.0-35.0); MCHC 31.1 g/dL (31.0-37.0); MCV 92.7 fL (80.0-100.0); Mean Platelet Volume 6.9; Monocytes # (A) 0.3 k/uL (0-1.0); Monocytes % (A) 11 %; Neutrophils # (A) 1.4 k/uL (1.3-7.7); Neutrophils % (A) 53 %; RBC 3.92 m/uL (3.80-5.40); RDW 17.6 % (11.5-15.5); WBC 2.7 k/uL (3.8-10.6)
[2024-06-06 19:17] LABS: Platelet Count 310 k/uL (150-450)
[2024-06-06] MEDS ORDERED: LORazepam 2 MG/ML INJ IV PRN ×2 (19:30)
[2024-06-06] MEDS ORDERED: LORazepam 1 MG TAB PO PRN (19:30)
[2024-06-06] MEDS ORDERED: LORazepam 0.5 MG TAB PO PRN (19:30)
[2024-06-06 19:32] LABS: Appearance,Urine Clear (Clear); Bilirubin,Urine Negative (Negative); Blood,Urine Negative (Negative); Color,Urine Colorless; Glucose,Urine (UA) Negative (Negative); Ketones,Urine Negative (Negative); Leukocyte Esterase,Urine Negative (Negative); Nitrite,Urine Negative (Negative); Protein,Urine Negative (Negative); Specific Gravity,Urine 1.005 (1.001-1.035); Urobilinogen,Urine <2.0 mg/dL (<2.0)
--- NOTE | 2024-06-06 19:49 | CT ---
EXAMINATION TYPE: CT brain cspine wo con DATE OF EXAM: 06/06/2024 COMPARISON: 06/05/2024 HISTORY: Fall CT DLP: 1505 mGycm, Automated exposure control for dose reduction was used. CONTRAST: Patient injected with 0 mL of Isovue 300. CT of the brain is performed utilizing 3 mm thick sections through the posterior fossa and 3 mm thick sections through the remaining calvarium. Study is performed within 24 hours of arrival to the hospital. No abnormal hyperdensity is present to suggest an acute intracranial hemorrhage. No mass lesion is evident. No acute infarcts are evident. Ventricles and sulci are appropriate for the patient age. Paranasal sinuses and mastoid air cells within the [id number] are clear. Previous air-fluid level not identified. IMPRESSIONS: 1. No acute intracranial process. Follow-up MRI can be performed as clinically indicated. 2. Exam yareli ears stable from comparison. CT cervical spine. COMPARISON: None CT of the cervical spine is performed in the axial plane at 2 mm thick sections. Reconstructed image s in the coronal, and sagittal plane are reviewed on the computer. No acute fractures are evident. Vertebral body alignment is normal. Disc space narrowing is present C3-4. Posterior disc space narrowing is present C4-5 C5-6 C6-7. Mild anterior vertebral body spurring is present C3-C7. Vertebral body heights are preserved. No spinal canal stenosis is evident. No neural foraminal stenosis is evident. IMPRESSION: 1. No acute osseous abnormality cervical spine. 2. Mild degenerative disc changes [facility], , 06/06/2024 7:46 PM
[2024-06-06] MEDS ORDERED: NALOXONE 0.4 MG/ML 1 ML VIAL IV PRN (20:02)
[2024-06-06] MEDS: SODIUM CHLORIDE 0.9% 1,000 ML IV SCH (20:06)
[2024-06-07] MEDS: ACETAMINOPHEN TAB 325 MG TAB PO PRN (05:59)
--- NOTE | 2024-06-07 07:41 | P.HPIM ---
History of Present Illness This is a pleasant 58 years old female with past medical history of multiple medical problems as below. She has frequent hospitalization related to her alcohol use disorder This time she presents also with fall, she has history of recurrent falls. This time patient stated that she tripped over her cat and fell and hit back of her head, she denies syncope, she denies dizziness No chest pain or dyspnea coughing She denies /GI signs or symptoms. No headache dizziness weakness or tingling. No blurred vision or slurred speech. She denies smoking or illicit drugs. She drinks beer and occasional liquor without specification but states too much. She does not feel ready to quit drinking. She denies depression or suicidal ideation Vitals are stable and afebrile She has mild leukopenia and anemia with WBC 2.7 and hemoglobin 11.2 BMP is unremarkable, lactate slightly up at 5.2, urinalysis is negative Serum alcohol is elevated 403 CT of the head and neck is negative for acute process Review of Systems Review of systems CONSTITUTIONAL: No fever, no malaise, no fatigue. HEENT: No recent visual problems or hearing problems. Denied any sore throat. CARDIOVASCULAR: No orthopnea, PND, no palpitations, no syncope. PULMONARY: No shortness of breath, no cough, no hemoptysis. GASTROINTESTINAL: No diarrhea, no nausea, no vomiting, no abdominal pain. Normoactive bowel sounds. NEUROLOGICAL: No headaches, no weakness, no numbness. HEMATOLOGICAL: Denies any bleeding or petechiae. GENITOURINARY: Denies any burning micturition, frequency, or urgency. MUSCULOSKELETAL/RHEUMATOLOGICAL: Denies any joint pain, swelling, or any muscle pain. ENDOCRINE: Denies any polyuria or polydipsia. Past Medical History Past Medical History: Deep Vein Thrombosis (DVT), Hypertension Additional Past Medical History / Comment(s): concussion History of Any Multi-Drug Resistant Organisms: None Reported Past Surgical History: Bowel Resection Additional Past Surgical History / Comment(s): jaw surgery, colostomy 01/2023 Past Anesthesia/Blood Transfusion Reactions: No Reported Reaction Past Psychological History: Anxiety, Depression Smoking Status: Former smoker Past Alcohol Use History: Abuse, Daily, Heavy Past Drug Use History: None Reported - Past Family History Father Additional Family Medical History / Comment(s): Spleen CA Mother Family Medical History: COPD Additional Family Medical History / Comment(s): empysema Medications and Allergies Home Medications Medication Instructions Recorded Confirmed Type Multivitamins, Thera [Multivitamin 1 tab PO DAILY #30 tablet 03/21/24 06/06/24 Rx (formulary)] Thiamine [Vitamin B-1] 100 mg PO DAILY #30 tablet 03/21/24 06/06/24 Rx traZODone HCL [Desyrel] 150 mg PO HS #30 tab 03/21/24 06/06/24 Rx Pantoprazole [Protonix] 40 mg PO AC-BRKFST #30 tab 04/14/24 06/06/24 Rx Acetaminophen Tab [Tylenol] 650 mg PO Q6HR PRN tab 05/31/24 06/06/24 Rx Nystatin 100,000 Unit/gm Powd 1 applic TOPICAL BID #1 each 05/31/24 06/06/24 Rx [Mycostatin Powder] Allergies Allergy/AdvReac Type Severity Reaction Status Date / Time bacitracin Allergy Rash/Hives Verified 06/06/24 19:52 cephalexin [From Keflex] Allergy Itching Verified 06/06/24 19:52 Physical Exam Vitals: Vital Signs Temp Pulse Resp BP Pulse Ox 06/07/24 06:52 97.9 F 89 18 130/82 95 06/07/24 00:46 97.6 F 77 18 114/76 98 06/06/24 21:50 97.9 F 82 16 117/80 98 06/06/24 19:20 97.8 F 78 18 118/79 98 06/06/24 17:22 97.9 F 85 18 125/83 95 Intake and Output 06/06/24 06/07/24 06/07/24 22:59 06:59 14:59 Other: Weight 99.79 kg GENERAL: The patient is alert and oriented x3, not in any acute distress. Well developed, well nourished. -HEENT: Pupils are round and equally reacting to light. EOMI. No scleral icterus. No conjunctival pallor. Normocephalic, atraumatic. No pharyngeal erythe ma. No thyromegaly. Closed scalp wound with [address] in the back of the head CARDIOVASCULAR: S1 and S2 present. No murmurs, rubs, or gallops. PULMONARY: Chest is clear to auscultation, no wheezing , no crackles. ABDOMEN: Soft, nontender, nondistended, normoactive bowel sounds. No palpable organomegaly. MUSCULOSKELETAL: No joint swelling or deformity. EXTREMITIES: No cyanosis, clubbing, or pedal edema. NEUROLOGICAL: Gross neurological examination did not reveal any focal deficits. SKIN: No rashes. no petechiae. Results CBC & Chem 7: 06/06/24 18:37 06/06/24 18:37 Labs: Abnormal Lab Results - Last 24 Hours (Table) 06/06/24 06/06/24 Range/Units 18:37 18:37 WBC 2.7 L (3.8-10.6) k/uL Hgb 11.3 L (11.4-16.0) gm/dL RDW 17.6 H (11.5-15.5) % Lymphocytes # 0.8 L (1.0-4.8) k/uL BUN <2 L (7-17) mg/dL Creatinine 0.46 L (0.52-1.04) mg/dL Glucose 72 L (74-99) mg/dL Calcium 8.2 L (8.4-10.2) mg/dL AST 92 H (14-36) U/L ALT 58 H (4-34) U/L Total Protein 5.7 L (6.3-8.2) g/dL Albumin 3.3 L (3.5-5.0) g/dL Lipase 522 H (23-300) U/L Serum Alcohol 403 H* mg/dL Assessment and Plan Assessment: Fall without syncope, mostly related to alcohol use disorder Alcohol use disorder and intoxication with elevated alcohol level on admission, at risk of alcohol withdrawal while. Patient does not want to quit drinking upon discharge Scalp wound, currently closed. Secondary to above Mild bicytopenia with leukopenia and anemia related to alcohol effect Mild alcoholic transaminitis History of depression anxiety, not an active issue Plan: Continue monitoring for 24 hours with neurocheck Scalp wound looks closed as healing Patient counseled to quit reviewed both she states just hard DVT and GI prophylaxis Resume home medication Further recommendation based on the clinical course PT evaluation Overall prognosis is guarded Possible discharge in 24 to 48 hours
[2024-06-07] MEDS: PANTOPRAZOLE 40 MG TABLET PO SCH (07:47)
[2024-06-07] MEDS: MULTIVITAMINS, THERA 1 EACH TAB PO SCH (08:35)
[2024-06-07] MEDS: THIAMINE 100 MG TAB PO SCH (08:35)
[2024-06-07] MEDS: ONDANSETRON 4 MG/2 ML VIAL IVP PRN (08:58)
[2024-06-07] MEDS: LORazepam 2 MG/ML INJ IV PRN (09:55)
[2024-06-07] MEDS: traZODone HCL 50 MG TAB PO SCH (20:32)
[2024-06-08 11:24] LABS: ALT 37 U/L (8-44); AST 40 U/L (13-35); Albumin/Globulin Ratio 1.88 Ratio (1.60-3.17); Alkaline Phosphatase 67 U/L (41-126); BUN/Creat Ratio <8.75 Ratio (12.00-20.00); Blood Urea Nitrogen <3.5 mg/dL (9.0-27.0); Calcium 8.2 mg/dL (8.7-10.3); Carbon Dioxide 26.2 mmol/L (21.6-31.8); Chloride 104 mmol/L (96-109); Globulin 1.6 g/dL (1.6-3.3); Glucose 105 mg/dL (70-110); Potassium 3.1 mmol/L (3.5-5.5); Sodium 141 mmol/L (135-145); Total Bilirubin 0.9 mg/dL (0.3-1.2); Total Protein 4.6 g/dL (6.2-8.2)
[2024-06-08] MEDS: MAGNESIUM SULFATE-D5W PMX 1 GM in DEXTROSE/WATER 1 100ML.BAG IVPB SCH (12:20)
[2024-06-08] MEDS: POTASSIUM CHLORIDE ER 20 MEQ TAB.ER PO STA (12:20)
[2024-06-08] MEDS: CYANOCOBALAMIN 500 MCG TAB PO SCH (12:23)
--- NOTE | 2024-06-08 13:32 | P.DS ---
Providers Date of admission: 06/06/24 19:52 Attending physician: Marcia Emanuel Primary care physician: Constantine Figueroa [facility] Course: Diagnoses Fall without syncope, mostly related to alcohol use disorder Alcohol use disorder and intoxication with elevated alcohol level on admission, at risk of alcohol withdrawal . Currently has no withdrawal symptoms patient does not want to quit drinking upon discharge Scalp wound, currently closed. Secondary to above Mild bicytopenia with leukopenia and anemia related to alcohol effect Mild alcoholic transaminitis History of depression anxiety, not an active issue Hospital course: This is a pleasant 58 years old female with past medical history of multiple medical problems as below. She has frequent hospitalization related to her alcohol use disorder This time she presents also with fall, she has history of recurrent falls. This time patient stated that she tripped over her cat and fell and hit back of her head, she denies syncope, she denies dizziness. Patient evaluated in the emergency room she has small wound which is closed with abbe in place. Wound looks healing today with no evidence of cellulitis or discharge. Patient informed with the need to take the stitches/abbe off and 7 to 10 days and she agrees to follow-up with her PCP. On admission her serum alcohol was elevated 403 Patient denies any syncope. No chest pain or dyspnea. No co. Nfusion, no weakness or tingling or numbness. No other new complaint. Patient's wants to go home today. We checked a vitamin B12 which is low borderline at 325, he was started on vitamin B12 replacement therapy x 3 weeks. Folic acid was 10. BMP and liver enzymes were improving. Low potassium and magnesium replaced Patient was able to walk today with no difficulties. Physical therapist recommended patient to be discharged home. Problems and management plan were discussed with the patient and he verbalized understanding and acceptance Patient was found stable and can be discharged home in guarded prognosis however he needs follow-up as an outpatient. Patient was instructed to follow up with PCP Dr. Figueroa within one week and patient agrees Physical exam Gen: patient is a AAOx3, no distress CVS: S1-S2, RRR, no murmur Lungs: B/L CTA, no wheezing Abdomen: soft, no distention, no tenderness, positive bowel sounds Extremity: no leg edema or induration Time spent more than 35 minutes s Patient Condition at Discharge: Fair Plan - Discharge Summary Discharge Rx Participant: Yes New Discharge Prescriptions: New Potassium Chloride ER [K-Dur 10] 10 meq PO DAILY 3 Days #3 tab Magnesium Oxide [Mag-Ox] 400 mg PO BID 5 Days #10 tablet Cyanocobalamin [Vitamin B-12] 500 mcg PO DAILY 21 Days #21 tab Continue traZODone HCL [Desyrel] 150 mg PO HS #30 tab Thiamine [Vitamin B-1] 100 mg PO DAILY #30 tablet Pantoprazole [Protonix] 40 mg PO AC-BRKFST #30 tab Nystatin 100,000 Unit/gm Powd [Mycostatin Powder] 1 applic TOPICAL BID #1 each Acetaminophen Tab [Tylenol] 650 mg PO Q6HR PRN tab PRN Reason: Fever And/ Or Pain Multivitamins, Thera [Multivitamin (formulary)] 1 tab PO DAILY #30 tablet Discharge Medication List Multivitamins, Thera [Multivitamin (formulary)] 1 tab PO DAILY #30 tablet 03/21/24 [Rx] Thiamine [Vitamin B-1] 100 mg PO DAILY #30 tablet 03/21/24 [Rx] traZODone HCL [Desyrel] 150 mg PO HS #30 tab 03/21/24 [Rx] Pantoprazole [Protonix] 40 mg PO AC-BRKFST #30 tab 04/14/24 [Rx] Acetaminophen Tab [Tylenol] 650 mg PO Q6HR PRN tab 05/31/24 [Rx] Nystatin 100,000 Unit/gm Powd [Mycostatin Powder] 1 applic TOPICAL BID #1 each 05/31/24 [Rx] Cyanocobalamin [Vitamin B-12] 500 mcg PO DAILY 21 Days #21 tab 06/08/24 [Rx] Magnesium Oxide [Mag-Ox] 400 mg PO BID 5 Days #10 tablet 06/08/24 [Rx] Potassium Chloride ER [K-Dur 10] 10 meq PO DAILY 3 Days #3 tab 06/08/24 [Rx] Follow up Appointment(s)/Referral(s): Constantine Figueroa DO [Primary Care Provider] - 1-2 days Activity/Diet/Wound Care/Special Instructions: regular diet activity is restricted till you see your doctor Discharge Disposition: HOME SELF-CARE
[2024-06-08 14:20] VITALS: BP 121/82; PULSE 99; RESP 17; TEMP 98.5
== END 2024-06-08 15:47 | disposition home or self-care (01) ==
LOC: EC 17:19 → 6NMEDSUR 19:52
PROVIDERS: ADMIT Hospitalist; ATTEND Hospitalist
DX: F10.129 Alcohol abuse with intoxication, unspecified (principal); R29.6 Repeated falls; D64.9 Anemia, unspecified; D72.819 Decreased white blood cell count, unspecified; R74.01 Elevation of levels of liver transaminase levels; I10 Essential (primary) hypertension; F32.A Depression, unspecified; F41.9 Anxiety disorder, unspecified; Y90.8 Blood alcohol level of 240 mg/100 ml or more; Z86.718 Personal history of other venous thrombosis and embolism; Z87.891 Personal history of nicotine dependence; Z79.899 Other long term (current) drug therapy; Z88.1 Allergy status to other antibiotic agents
CPT/HCPCS: 36415; 70450; 72125; 80053; 80320; 81003; 82075; 82607; 82746; 83690; 83735; 85025; 96361; 96374; 99285

== ENCOUNTER 2024-06-13 12:35 | Observation (INO) | payer MEDICARE, OTHER ==
--- NOTE | 2024-06-13 13:22 | ED ---
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 Patient is well-known to this facility for recurrent visits related to alcohol intoxication. Unsure how much she drank, states that she just had quite a lot. States that yesterday after drinking she fell and hit the back of her head. Unsure if there was loss of consciousness. She is on Xarelto. Other than the headache she denies pain elsewhere. (Yady Ramirez) This is a 59-year-old female well-known to this ER for severe alcohol intoxication (Jean Chicas) - Related Data Previous Rx's Medication Instructions Recorded Ferrous Sulfate [Iron (65 MG 325 mg PO W/LUNCH #30 tab 06/16/24 Elemental)] Folic Acid 1 mg PO DAILY #30 tab 06/16/24 Multivitamins, Thera [Multivitamin 1 each PO DAILY #30 tab 06/16/24 (formulary)] Pantoprazole [Protonix] 40 mg PO AC-BRKFST #30 tab 06/16/24 Thiamine [Vitamin B-1] 100 mg PO DAILY 30 Days #30 tab 06/16/24 Allergies Allergy/AdvReac Type Severity Reaction Status Date / Time bacitracin Allergy Rash/Hives Verified 06/13/24 15:59 cephalexin [From Keflex] Allergy Itching Verified 06/13/24 15:59 Review of Systems ROS Other: All systems not noted in ROS Statement are negative. <Yady Ramirez - Last Filed: 06/13/24 13:37> ROS Other: All systems not noted in ROS Statement are negative. <Jean Chicas - Last Filed: 06/17/24 17:33> ROS Statement: Those systems with pertinent positive or pertinent negative responses have been documented in the HPI. Past Medical History Past Medical History: Deep Vein Thrombosis (DVT), Hypertension Additional Past Medical History / Comment(s): concussion History of Any Multi-Drug Resistant Organisms: None Reported Past Surgical History: Bowel Resection Additional Past Surgical History / Comment(s): jaw surgery, colostomy 01/2023 Past Anesthesia/Blood Transfusion Reactions: No Reported Reaction Past Psychological History: Anxiety, Depression Smoking Status: Former smoker Past Alcohol Use History: Abuse, Daily, Heavy Past Drug Use History: None Reported - Past Family History Father Additional Family Medical History / Comment(s): Spleen CA Mother Family Medical History: COPD Additional Family Medical History / Comment(s): empysema <Yady Ramirez - Last Filed: 06/13/24 13:37> General Exam Limitations: no limitations <EmilicathyYady - Last Filed: 06/13/24 13:37> Limitations: no limitations, altered mental status, physical limitation General appearance: alert, appears intoxicated, anxious, lethargic Head exam: Present: atraumatic, normocephalic, normal inspection Eye exam: Present: normal appearance, PERRL, EOMI. Absent: scleral icterus, conjunctival injection, periorbital swelling ENT exam: Present: normal exam, mucous membranes moist Neck exam: Present: normal inspection. Absent: tenderness, meningismus, lymphadenopathy Respiratory exam: Present: normal lung sounds bilaterally. Absent: respiratory distress, wheezes, rales, rhonchi, stridor Cardiovascular Exam: Present: regular rate, normal rhythm, normal heart sounds. Absent: systolic murmur, diastolic murmur, rubs, gallop, clicks GI/Abdominal exam: Present: soft, normal bowel sounds. Absent: distended, tenderness, guarding, rebound, rigid Extremities exam: Present: normal inspection, full ROM, normal capillary refill. Absent: tenderness, pedal edema, joint swelling, calf tenderness Back exam: Present: normal inspection Neurological exam: Present: alert, oriented X3, CN II-XII intact Psychiatric exam: Present: normal affect, normal mood Skin exam: Present: warm, dry, intact, normal color. Absent: rash <Jean Chicas - Last Filed: 06/17/24 17:33> - General Exam Comments Initial Comments: Visual Physical Exam Vital signs reviewed General: Well-appearing, nontoxic, no acute distress. Head: Normocephalic, atraumatic Eyes: PERRLA, EOMI ENT: Airway patent Chest: Nonlabored breathing Skin: No visual rash, normal skin tone Neuro: Alert and oriented 3 Musculoskeletal: No gross abnormalities (Yady Ramirez) Course <Jean Chicas - Last Filed: 06/17/24 17:33> Vital Signs 06/13/24 06/13/24 12:45 18:00 Temperature 97.2 F L Pulse Rate 85 84 Respiratory 18 18 Rate Blood Pressure 130/69 134/75 O2 Sat by Pulse 93 L 95 Oximetry - Reevaluation(s) Reevaluation #1: 06/13/24 19:14 Medical records reviewed (Jean Chicas) Reevaluation #2: 06/13/24 19:14 Patient symptoms unchanged (Jean Chicas) Reevaluation #3: 06/13/24 19:14 Patient informed of results and questions answered (Jean Chicas) Reevaluation #4: Was pt. sent in by a medical professional or institution (, PA, DERMATOLOGY PROCEDURAL PHYSICIAN, urgent care, hospital, or retirement...) When possible be specific @ -no Did you speak to anyone other than the patient for history (EMS, parent, family, police, friend...)? What history was obtained from this source @ -no Did you review nursing and triage notes (agree or disagree)? Why? @ -agree Are old charts reviewed (outside hosp., previous admission, EMS record, old EKG, old radiological studies, urgent care reports/EKG's, retirement records)? Report findings @ -yes Differential Diagnosis (chest pain, altered mental status, abdominal pain women, abdominal pain men, vaginal bleeding, weakness, fever, dyspnea, syncope, headache, dizziness, GI bleed, back pain, seizure, CVA, palpatations, mental he alth, musculoskeletal)? @ -prior EKG interpreted by me (3pts min.). @ -yes X-rays interpreted by me (1pt min.). @ -no CT interpreted by me (1pt min.). @ -no U/S interpreted by me (1pt. min.). @ -no What testing was considered but not performed or refused? (CT, X-rays, U/S, labs)? Why? @ -none What meds were considered but not given or refused? Why? @ -none Did you discuss the management of the patient with other professionals (professionals i.e. DrLeti, PA, DERMATOLOGY PROCEDURAL PHYSICIAN, lab, RT, psych nurse, social services specialist, companion, teacher, aerospace engineer officer armament, upper caser)? Give summary @ -no Was smoking cessation discussed for >3mins.? @ -no Was critical care preformed (if so, how long)? @ -no Were there social determinants of health that impacted care today? How? (Homelessness, low income, unemployed, alcoholism, drug addiction, transportation, low edu. Level, literacy, decrease access to med. care, [facility], r ehab)? @ -none Was there de-escalation of care discussed even if they declined (Discuss DNR or withdrawal of care, Hospice)? DNR status @ -no What co-morbidities impacted this encounter? (DM, HTN, Smoking, COPD, CAD, Cancer, CVA, ARF, Chemo, Hep., AIDS, mental health diagnosis, sleep apnea, morbid obesity)? @ -none Was patient admitted / discharged? Hospital course, mention meds given and route , prescriptions, significant lab abnormalities, going to OR and other pertinent info. @ - 59 female to admit for alcohol intoxication Admitted Undiagnosed new problem with uncertain prognosis? @ -no Drug Therapy requiring intensive monitoring for toxicity (Heparin, Nitro, Insulin, Cardizem)? @ -no Were any procedures done? @ -no Diagnosis/symptom? @ -Alcohol intoxication Acute, or Chronic, or Acute on Chronic? @ -Acute Uncomplicated (without systemic symptoms) or Complicated (systemic symptoms)? @ -Complicated Side effects of treatment? @ -no Exacerbation, Progression, or Severe Exacerbation? @ -exacerbation Poses a threat to life or bodily function? How? (Chest pain, USA, ID, pneumonia, PE, COPD, DKA, ARF, appy, cholecystitis, CVA, Diverticulitis, Homicidal, Suicidal, threat to staff... and all critical care pts) @ -yes severe intoxication (Jean Chicas) Reevaluation #5: Differential Altered Mental Status: Hypoglycemia, DKA, hypercapnia, ETOH, overdose, CO poisoning, trauma, myxedema coma, HTN encephalopathy, infection, encephalitis, psychosis, intercranial hemorrhage, hepatic encephalopathy, meningitis, CVA, this is not meant to be an all-inclusive list (Jean Chicas) - Consultations Consultation #1: Spoke with [facility] who agrees to admit this patient (Jean Chicas) Medical Decision Making <Yady Ramirez - Last Filed: 06/13/24 13:37> - Lab Data Result diagrams: 06/15/24 05:43 06/15/24 05:43 - Radiology Data Radiology results: report reviewed (CT brain C-spine negative for acute disease), image reviewed <Jean Chicas - Last Filed: 06/17/24 17:33> - Medical Decision Making I performed the QuickNote portion of this chart. Signed Yady Ramirez PA-C. (Yady Ramirez) 59 female to admit for alcohol intoxication (Jean Chicas) - Lab Data Lab Results 06/13/24 06/13/24 06/13/24 Range/Units 14:16 14:16 14:16 WBC 2.4 L (3.8-10.6) k/uL RBC 3.84 (3.80-5.40) m/uL Hgb 11.2 L (11.4-16.0) gm/dL Hct 35.5 (34.0-46.0) % MCV 92.4 (80.0-100.0) fL MCH 29.0 (25.0-35.0) pg MCHC 31.4 (31.0-37.0) g/dL RDW 17.7 H (11.5-15.5) % Plt Count 218 (150-450) k/uL MPV 7.0 Neutrophils % (Manual) 40 % Band Neuts % (Manual) 1 % Lymphocytes % (Manual) 47 % Monocytes % (Manual) 9 % Eosinophils % (Manual) 3 % Neutrophils # (Manual) 0.90 L (1.3-7.7) k/uL Lymphocytes # (Manual) 1.13 (1.0-4.8) k/uL Monocytes # (Manual) 0.22 (0-1.0) k/uL Eosinophils # (Manual) 0.07 (0-0.7) k/uL Nucleated RBCs 0 (0-0) /100 WBC Manual Slide Review Performed Hypochromasia Slight Anisocytosis Slight PT 11.1 (10.0-12.5) sec INR 1.0 (<1.2) Sodium (137-145) mmol/L Potassium (3.5-5.1) mmol/L Chloride (98-107) mmol/L Carbon Dioxide (22-30) mmol/L Anion Gap mmol/L BUN (7-17) mg/dL Creatinine (0.52-1.04) mg/dL Est GFR (CKD-EPI)AfAm (>60 ml/min/1.73 sqM) Est GFR (CKD-EPI)NonAf (>60 ml/min/1.73 sqM) Glucose (74-99) mg/dL Calcium (8.4-10.2) mg/dL Magnesium (1.6-2.3) mg/dL Total Bilirubin (0.2-1.3) mg/dL AST (14-36) U/L ALT (4-34) U/L Alkaline Phosphatase (38-126) U/L Total Protein (6.3-8.2) g/dL Albumin (3.5-5.0) g/dL Amylase (30-110) U/L Lipase (23-300) U/L Urine Color Colorless Urine Appearance Clear (Clear) Urine pH 5.5 (5.0-8.0) Ur Specific [place] 1.009 (1.001-1.035) Urine Protein Negative (Negative) Urine Glucose (UA) Negative (Negative) Urine Ketones Negative (Negative) Urine Blood Negative (Negative) Urine Nitrite Negative (Negative) Urine Bilirubin Negative (Negative) Urine Urobilinogen <2.0 (<2.0) mg/dL Ur Leukocyte Esterase Negative (Negative) Urine Opiates Screen Not Detected (NotDetected) Ur Oxycodone Screen Not Detected (NotDetected) Urine Methadone Screen Not Detected (NotDetected) Ur Barbiturates Screen Not Detected (NotDetected) U Tricyclic Antidepress Not Detected (NotDetected) Ur Phencyclidine Scrn Not Detected (NotDetected) Ur Amphetamines Screen Not Detected (NotDetected) U Methamphetamines Scrn Not Detected (NotDetected) U Benzodiazepines Scrn Not Detected (NotDetected) Urine Cocaine Screen Not Detected (NotDetected) U Marijuana (THC) Screen Not Detected (NotDetected) Serum Alcohol mg/dL 06/13/24 Range/Units 14:16 WBC (3.8-10.6) k/uL RBC (3.80-5.40) m/uL Hgb (11.4-16.0) gm/dL Hct (34.0-46.0) % MCV (80.0-100.0) fL MCH (25.0-35.0) pg MCHC (31.0-37.0) g/dL RDW (11.5-15.5) % Plt Count (150-450) k/uL MPV Neutrophils % (Manual) % Band Neuts % (Manual) % Lymphocytes % (Manual) % Monocytes % (Manual) % Eosinophils % (Manual) % Neutrophils # (Manual) (1.3-7.7) k/uL Lymphocytes # (Manual) (1.0-4.8) k/uL Monocytes # (Manual) (0-1.0) k/uL Eosinophils # (Manual) (0-0.7) k/uL Nucleated RBCs (0-0) /100 WBC Manual Slide Review Hypochromasia Anisocytosis PT (10.0-12.5) sec INR (<1.2) Sodium 145 (137-145) mmol/L Potassium 3.9 (3.5-5.1) mmol/L Chloride 108 H (98-107) mmol/L Carbon Dioxide 29 (22-30) mmol/L Anion Gap 8 mmol/L BUN 3 L (7-17) mg/dL Creatinine 0.52 (0.52-1.04) mg/dL Est GFR (CKD-EPI)AfAm >90 (>60 ml/min/1.73 sqM) Est GFR (CKD-EPI)NonAf >90 (>60 ml/min/1.73 sqM) Glucose 75 (74-99) mg/dL Calcium 8.4 (8.4-10.2) mg/dL Magnesium 1.7 (1.6-2.3) mg/dL Total Bilirubin 0.6 (0.2-1.3) mg/dL AST 74 H (14-36) U/L ALT 49 H (4-34) U/L Alkaline Phosphatase 84 (38-126) U/L Total Protein 5.7 L (6.3-8.2) g/dL Albumin 3.3 L (3.5-5.0) g/dL Amylase 48 (30-110) U/L Lipase 834 H (23-300) U/L Urine Color Urine Appearance (Clear) Urine pH (5.0-8.0) Ur Specific [place] (1.001-1.035) Urine Protein (Negative) Urine Glucose (UA) (Negative) Urine Ketones (Negative) Urine Blood (Negative) Urine Nitrite (Negative) Urine Bilirubin (Negative) Urine Urobilinogen (<2.0) mg/dL Ur Leukocyte Esterase (Negative) Urine Opiates Screen (NotDetected) Ur Oxycodone Screen (NotDetected) Urine Methadone Screen (NotDetected) Ur Barbiturates Screen (NotDetected) U Tricyclic Antidepress (NotDetected) Ur Phencyclidine Scrn (NotDetected) Ur Amphetamines Screen (NotDetected) U Methamphetamines Scrn (NotDetected) U Benzodiazepines Scrn (NotDetected) Urine Cocaine Screen (NotDetected) U Marijuana (THC) Screen (NotDetected) Serum Alcohol 374 H* mg/dL Disposition <Yady Ramirez - Last Filed: 06/13/24 13:37> Is patient prescribed a controlled substance at d/c from ED?: No Time of Disposition: 19:10 <Jean Chicsa - Last Filed: 06/17/24 17:33> Clinical Impression: Alcohol use disorder, severe, dependence, Alcohol intoxication, Multiple falls, Fall, Head injury, Pancreatitis, Postoperative pain Disposition: ADMITTED IP TO THIS [facility] Condition: Fair
[2024-06-13 14:29] LABS: Prothrombin Time 11.1 sec (10.0-12.5)
[2024-06-13 14:33] LABS: Appearance,Urine Clear (Clear); Bilirubin,Urine Negative (Negative); Blood,Urine Negative (Negative); Color,Urine Colorless; Glucose,Urine (UA) Negative (Negative); Ketones,Urine Negative (Negative); Leukocyte Esterase,Urine Negative (Negative); Nitrite,Urine Negative (Negative); PH, Urine 5.5 (5.0-8.0); Protein,Urine Negative (Negative); Specific Gravity,Urine 1.009 (1.001-1.035); Urobilinogen,Urine <2.0 mg/dL (<2.0)
[2024-06-13 14:35] LABS: Anisocytosis Slight; HCT 35.5 % (34.0-46.0); HGB 11.2 gm/dL (11.4-16.0); Hypochromasia Slight; MCHC 31.4 g/dL (31.0-37.0); MCV 92.4 fL (80.0-100.0); Platelet Count 218 k/uL (150-450); RBC 3.84 m/uL (3.80-5.40); RDW 17.7 % (11.5-15.5); WBC 2.4 k/uL (3.8-10.6)
[2024-06-13 14:40] LABS: Amphetamine Screen,Urine Not Detected (NotDetected); Barbiturate Screen,Urine Not Detected (NotDetected); Benzodiazepines Screen,Urine Not Detected (NotDetected); Cocaine Screen,Urine Not Detected (NotDetected); Methadone Screen, Urine Not Detected (NotDetected); Opiate Screen,Urine Not Detected (NotDetected); Oxycodone Screen, Urine Not Detected (NotDetected); Phencyclidine Screen,Urine Not Detected (NotDetected); Tricyclic Antidepressant,Urine Not Detected (NotDetected); Urn Cannabinoid Scrn Not Detected (NotDetected)
[2024-06-13 14:41] LABS: ALT 49 U/L (4-34); AST 74 U/L (14-36); African American GFR (CKD) >90 (>60 ml/min/1.73 sqM); Albumin 3.3 g/dL (3.5-5.0); Alkaline Phosphatase 84 U/L (38-126); Amylase 48 U/L (30-110); Anion Gap 8 mmol/L; Blood Urea Nitrogen 3 mg/dL (7-17); Calcium 8.4 mg/dL (8.4-10.2); Carbon Dioxide 29 mmol/L (22-30); Chloride 108 mmol/L (98-107); Glucose 75 mg/dL (74-99); Lipase 834 U/L (23-300); Magnesium 1.7 mg/dL (1.6-2.3); Non-African American GFR(CKD) >90 (>60 ml/min/1.73 sqM); Potassium 3.9 mmol/L (3.5-5.1); Sodium 145 mmol/L (137-145); Total Bilirubin 0.6 mg/dL (0.2-1.3); Total Protein 5.7 g/dL (6.3-8.2)
[2024-06-13 15:01] LABS: Band Neutrophils % 1 %; Eosinophils # (M) 0.07 k/uL (0-0.7); Lymphocytes # (M) 1.13 k/uL (1.0-4.8); Monocytes # (M) 0.22 k/uL (0-1.0); Neutrophils % (M) 40 %; Nucleated Red Blood Cells 0 /100 WBC (0-0); Total Cells Counted 100
[2024-06-13 15:07] LABS: Alcohol 374 mg/dL
--- NOTE | 2024-06-13 15:18 | CT ---
EXAMINATION TYPE: CT brain cspine wo con DATE OF EXAM: 06/13/2024 COMPARISON: 06/06/2024 HISTORY: Fall, head injury CT DLP: 1596.6 mGycm, Automated exposure control for dose reduction was used. CONTRAST: None CT of the brain is performed utilizing 3 mm thick sections through the posterior fossa and 3 mm thick sections through the remaining calvarium. Study is performed within 24 hours of arrival to the hospital. No abnormal hyperdensity is present to suggest an acute intracranial hemorrhage. No mass lesion is evident. No acute infarcts are evident. Ventricles and sulci are appropriate for the patient age. Retention cyst is within the inferior right maxillary sinus. Remaining paranasal sinuses and mastoid air cells are clear. No acute fractures are evident. IMPRESSIONS: 1. No acute intracranial process. Follow-up MRI can be performed as clinically indicated. 2. No significant interval change from recent comparison CT cervical spine. COMPARISON: None CT of the cervical spine is performed in the axial plane at 2 mm thick sections. Reconstructed image s in the coronal, and sagittal plane are reviewed on the computer. No acute fractures are evident. Vertebral body alignment is normal. Posterior spinal lamellar line is intact. Anterior vertebral body spurring is present C3-C6. Diffuse loss of disc height is present at C3-4 thr ough C6-7. Vertebral body heights are preserved. No spinal canal stenosis is evident. Uncovertebral joint hypertrophy is present with mild right foraminal stenosis C3-4 minimal left seen 4 5 mild left C6-7 IMPRESSION: 1. Degenerative disc changes. 2. Uncovertebral joint hypertrophy contribute to foraminal narrowing. Correlate with radicular sympto ms. 3. No acute osseous abnormality [facility], Workstation: [facility], 06/13/2024 3:16 PM
[2024-06-13] MEDS ORDERED: LORazepam 1 MG TAB PO PRN ×2 (19:16)
[2024-06-13] MEDS ORDERED: LORazepam 0.5 MG TAB PO PRN (19:16)
[2024-06-13] MEDS ORDERED: LORazepam 2 MG/ML INJ IV PRN ×2 (19:16)
[2024-06-13] MEDS ORDERED: MORPHINE SULFATE 4 MG/ML SYRINGE IV PRN (19:16)
[2024-06-13] MEDS ORDERED: NALOXONE 0.4 MG/ML 1 ML VIAL IV PRN (19:16)
[2024-06-13] MEDS: SODIUM CHLORIDE 0.9% 1,000 ML IV SCH (22:34)
[2024-06-13] MEDS: LORazepam 1 MG TAB PO PRN (23:42)
[2024-06-14 08:53] LABS: Basophils # (A) 0.02 X 10*3/uL (0.00-0.10); Basophils % (A) 0.8 %; Eosinophils # (A) 0.08 X 10*3/uL (0.04-0.35); Eosinophils % (A) 3.3 %; HCT 31.1 % (37.2-46.3); HGB 9.9 g/dL (12.0-15.0); MCH 28.3 pg (27.0-32.0); MCHC 31.8 g/dL (32.0-37.0); MCV 88.9 FL (80.0-97.0); Mean Platelet Volume 9.3 FL (9.5-12.2); Monocytes # (A) 0.29 X 10*3/uL (0.20-1.00); NRBC Per 100 WBC 0 X 10*3/uL (0.00-0.01); Neutrophils % (A) 54.1 %; Platelet Count 135 X 10*3/uL (140-440); RDW 18.6 % (11.5-14.5); WBC 2.41 X 10*3/uL (4.50-10.00)
[2024-06-14 08:54] LABS: ALT 39 U/L (8-44); AST 56 U/L (13-35); Albumin 3.1 g/dL (3.8-4.9); Albumin/Globulin Ratio 1.72 Ratio (1.60-3.17); Alkaline Phosphatase 81 U/L (41-126); BUN/Creat Ratio <7.00 Ratio (12.00-20.00); Blood Urea Nitrogen <3.5 mg/dL (9.0-27.0); Calcium 7.8 mg/dL (8.7-10.3); Carbon Dioxide 22.9 mmol/L (21.6-31.8); Chloride 104 mmol/L (96-109); Globulin 1.8 g/dL (1.6-3.3); Glucose 84 mg/dL (70-110); Magnesium 1.5 mg/dL (1.5-2.4); Phosphorus 3.5 mg/dL (2.4-5.1); Potassium 3.8 mmol/L (3.5-5.5); Sodium 143 mmol/L (135-145); Total Bilirubin 0.6 mg/dL (0.3-1.2); Total Protein 4.9 g/dL (6.2-8.2)
[2024-06-14] MEDS: THIAMINE 100 MG TAB PO SCH (09:08)
[2024-06-14] MEDS: FOLIC ACID 1 MG TAB PO SCH (09:08)
[2024-06-14] MEDS: MULTIVITAMINS, THERA 1 EACH TAB PO SCH (09:08)
[2024-06-14] MEDS: PANTOPRAZOLE 40 MG TABLET PO SCH (10:46)
[2024-06-14] MEDS: ONDANSETRON 4 MG/2 ML VIAL IVP PRN (10:46)
[2024-06-14] MEDS: LORazepam 2 MG/ML INJ IV PRN (10:55)
[2024-06-14] MEDS: traZODone HCL 50 MG TAB PO SCH (21:37)
--- NOTE | 2024-06-14 22:55 | P.HPIM ---
History of Present Illness H&P Date: 06/14/24 Chief Complaint: Acute alcohol intoxication Patient is a 59-year-old female with a past medical history of hypertension, history of DVT, anxiety/depression, prior history of smoking and heavy alcohol abuse, drinks about 6-10 beers on daily basis presents to ER due to acute a lcohol intoxication. Patient states that she fell after drinking and hit her head on the back. Patient is not sure if she lost her consciousness. Patient was on anticoagulation with Xarelto due to prior history of DVT. Patient is not sure whether she is taking at home or not.. Otherwise patient denied any headache. No nausea or vomiting. No fever no chills. No cough or sputum production. CT head and cervical spine on admission showed no acute intracranial process. No significant interval changes from recent comparison. CT cervical spine showed degenerative disc changes. On core vertebral joint hypertrophy contribute to foraminal narrowing. Correlate with radicular symptoms. No acute osseous abnormality. Laboratory data showed WBC 2.4 hemoglobin 11.2 and platelets 218 MCV 92.4 and RDW 17.7 Sodium 145 potassium 3.9 chloride 108 bicarb is 29 BUN 3 and creatinine 0.52, AST 74 ALT 49 alk phos 84 albumin 3.3 Lipase 834 Urinalysis is negative for infection UDS negative. Serum alcohol level 374 Review of Systems Constitutional: Patient denies any fever or chills . No generalized weakness or weight loss. Abdomen: Patient denied nausea vomiting and diarrhea and abdominal pain. Cardiovascular: Patient denies any chest pain or short of breath no palpitations. Respiratory: patient denied any cough or sputum production. No shortness of breath Neurologic: Patient denied any numbness or tingling. no headache. Musculoskeletal: Patient denies any complaints of joint swelling or deformity. Skin: Negative Psychiatric: Anxiety. Endocrine: No heat or cold intolerance. No recent weight gain. Genitourinary: No dysuria or hematuria. All other 14 point ROS negative except the above Past Medical History Past Medical History: Deep Vein Thrombosis (DVT), Hypertension Additional Past Medical History / Comment(s): concussion History of Any Multi-Drug Resistant Organisms: None Reported Past Surgical History: Bowel Resection Additional Past Surgical History / Comment(s): jaw surgery, colostomy 01/2023 Past Anesthesia/Blood Transfusion Reactions: No Reported Reaction Past Psychological History: Anxiety, Depression Smoking Status: Former smoker Past Alcohol Use History: Abuse, Daily, Heavy Additional Past Alcohol Use History / Comment(s): states she drinks 6-10 beers daily, vodka on occassion Past Drug Use History: None Reported - Past Family History Father Additional Family Medical History / Comment(s): Spleen CA Mother Family Medical History: COPD Additional Family Medical History / Comment(s): empysema Medications and Allergies Home Medications Medication Instructions Recorded Confirmed Type No Known Home Medications 06/13/24 06/13/24 History Allergies Allergy/AdvReac Type Severity Reaction Status Date / Time bacitracin Allergy Rash/Hives Verified 06/13/24 15:59 cephalexin [From Keflex] Allergy Itching Verified 06/13/24 15:59 Physical Exam Vitals: Vital Signs Temp Pulse Pulse Resp BP BP Pulse Ox 06/14/24 09:30 98.9 F 98 17 179/73 96 06/14/24 07:25 98.7 F 105 H 18 143/103 94 L 06/14/24 02:00 98.3 F 111 H 18 130/90 96 06/13/24 23:36 98.4 F 117 H 18 131/85 93 L 06/13/24 22:36 89 18 126/90 96 06/13/24 18:00 84 18 134/75 95 06/13/24 12:45 97.2 F L 85 18 130/69 93 L Intake and Output 06/13/24 06/14/24 06/14/24 22:59 06:59 14:59 Intake Total 0 Balance 0 Intake: Oral 0 Other: Voiding Method Toilet Toilet # Voids 4 Weight 99.79 kg PHYSICAL EXAMINATION: Patient is lying in the bed comfortably, no acute distress, awake alert and oriented. Patient is anxious and shaky.. HEENT: Normocephalic. Neck is supple. Pupils reactive. Nostrils clear. Oral cavity is moist. Neck reveals no JVD, carotid bruits, or thyromegaly. CHEST EXAMINATION: Trachea is central. Symmetrical expansion. Lung andujar clear to auscultation and percussion. CARDIAC: Normal S1, S2 with no gallops. No murmurs ABDOMEN: Soft. Bowel sounds normal. No organomegaly. No abdominal bruits. Extremities: reveal no edema. No clubbing or cyanosis Neurologically awake, alert, oriented x3 with well-coordinated movements. No focal deficits noted Skin: No rash or skin lesions. Psychiatric: Coperative. Nonsuicidal Musculoskeletal: No joint swelling or deformity. Normal range of motion. Results CBC & Chem 7: 06/14/24 04:21 06/14/24 04:21 Labs: Abnormal Lab Results - Last 24 Hours (Table) 06/13/24 06/13/24 06/14/24 Range/Units 14:16 14:16 04:21 WBC 2.4 L 2.41 L (3.8-10.6) k/uL RBC 3.50 L (4.10-5.20) X 10*6/uL Hgb 11.2 L 9.9 L (11.4-16.0) gm/dL Hct 31.1 L (37.2-46.3) % MCHC 31.8 L (32.0-37.0) g/dL RDW 17.7 H 18.6 H (11.5-15.5) % Plt Count 135 L (140-440) X 10*3/uL MPV 9.3 L (9.5-12.2) FL Neutrophils # 1.30 L (1.80-7.70) X 10*3/uL Neutrophils # (Manual) 0.90 L (1.3-7.7) k/uL Lymphocytes # 0.70 L (0.90-5.00) X 10*3/uL Chloride 108 H (98-107) mmol/L Anion Gap (4.00-12.00) mmol/L BUN 3 L (7-17) mg/dL Creatinine (0.6-1.5) mg/dL BUN/Creatinine Ratio (12.00-20.00) Ratio Calcium (8.7-10.3) mg/dL AST 74 H (14-36) U/L ALT 49 H (4-34) U/L Total Protein 5.7 L (6.3-8.2) g/dL Albumin 3.3 L (3.5-5.0) g/dL Lipase 834 H (23-300) U/L Serum Alcohol 374 H* mg/dL 06/14/24 Range/Units 04:21 WBC (3.8-10.6) k/uL RBC (4.10-5.20) X 10*6/uL Hgb (11.4-16.0) gm/dL Hct (37.2-46.3) % MCHC (32.0-37.0) g/dL RDW (11.5-15.5) % Plt Count (140-440) X 10*3/uL MPV (9.5-12.2) FL Neutrophils # (1.80-7.70) X 10*3/uL Neutrophils # (Manual) (1.3-7.7) k/uL Lymphocytes # (0.90-5.00) X 10*3/uL Chloride (98-107) mmol/L Anion Gap 16.10 H (4.00-12.00) mmol/L BUN <3.5 L (7-17) mg/dL Creatinine 0.5 L (0.6-1.5) mg/dL BUN/Creatinine Ratio <7.00 L (12.00-20.00) Ratio Calcium 7.8 L (8.7-10.3) mg/dL AST 56 H (14-36) U/L ALT (4-34) U/L Total Protein 4.9 L (6.3-8.2) g/dL Albumin 3.1 L (3.5-5.0) g/dL Lipase (23-300) U/L Serum Alcohol mg/dL Thrombosis Risk Factor Assmnt - DVT/VTE Prophylaxis DVT/VTE Prophylaxis: Pharmacologic Prophylaxis ordered - Choose All That Apply Each Factor Represents 1 point: Obesity (BMI >25) Each Risk Factor Represents 2 Points: Age 61-74 years Each Risk Factor Represents 3 Points: Family history of DVT/PE, History of DVT/PE Thrombosis Risk Factor Assessment Total Risk Factor Score: 9 Thrombosis Risk Factor Assessment Level: High Risk Assessment and Plan Assessment: Acute alcohol intoxication on admission Status post fall and hit her head. CT head showed no acute intracranial process. Normocytic anemia and history of iron deficiency. Severe alcohol abuse Hypertension History of DVT. Patient was on Xarelto. GI prophylaxis. Plan: Patient will be current on IV hydration with normal saline. Continue with alcohol withdrawal protocol. Thiamine and multivitamins and follow-up closely. Alcohol abstinence has been counseled extensively. Prognosis is guarded. Time with Patient: Greater than 30
[2024-06-15 08:29] LABS: Basophils # (A) 0.02 X 10*3/uL (0.00-0.10); Basophils % (A) 0.8 %; Eosinophils # (A) 0.06 X 10*3/uL (0.04-0.35); Eosinophils % (A) 2.3 %; HCT 31.5 % (37.2-46.3); HGB 10.2 g/dL (12.0-15.0); Lymphocytes # (A) 0.82 X 10*3/uL (0.90-5.00); Lymphocytes % (A) 31.8 %; MCH 29.1 pg (27.0-32.0); MCHC 32.4 g/dL (32.0-37.0); Mean Platelet Volume 10.5 FL (9.5-12.2); Monocytes # (A) 0.35 X 10*3/uL (0.20-1.00); Monocytes % (A) 13.6 %; NRBC Per 100 WBC 0 X 10*3/uL (0.00-0.01); Neutrophils # (A) 1.31 X 10*3/uL (1.80-7.70); Neutrophils % (A) 50.7 %; Platelet Count 115 X 10*3/uL (140-440); RDW 17.9 % (11.5-14.5); WBC 2.58 X 10*3/uL (4.50-10.00)
[2024-06-15 08:37] LABS: BUN/Creat Ratio <5.83 Ratio (12.00-20.00); Blood Urea Nitrogen <3.5 mg/dL (9.0-27.0); Calcium 8.3 mg/dL (8.7-10.3); Carbon Dioxide 25.5 mmol/L (21.6-31.8); Chloride 104 mmol/L (96-109); Glucose 100 mg/dL (70-110); Potassium 3.8 mmol/L (3.5-5.5); Sodium 140 mmol/L (135-145)
[2024-06-15] MEDS: FERROUS SULFATE 325 MG TAB PO SCH (12:33)
[2024-06-15] MEDS ORDERED: Magnesium Replacement Protocol 1 EACH MISC MISCELLANE PRN (14:58)
--- NOTE | 2024-06-15 15:11 | P.PN ---
Subjective Progress Note Date: 06/15/24 Patient is a 59-year-old female with a past medical history of hypertension, history of DVT, anxiety/depression, prior history of smoking and heavy alcohol abuse, drinks about 6-10 beers on daily basis presents to ER due to acute alcohol intoxication. Patient states that she fell after drinking and hit her head on the back. Patient is not sure if she lost her consciousness. Patient was on anticoagulation with Xarelto due to prior history of DVT. Patient is not sure whether she is taking at home or not.. Otherwise patient denied any headache. No nausea or vomiting. No fever no chills. No cough or sputum production. CT head and cervical spine on admission showed no acute intracranial process. No significant interval changes from recent comparison. CT cervical spine showed degenerative disc changes. On core vertebral joint hypertrophy contribute to foraminal narrowing. Correlate with radicular symptoms. No acute osseous abnormality. Laboratory data showed WBC 2.4 hemoglobin 11.2 and platelets 218 MCV 92.4 and RDW 17.7 Sodium 145 potassium 3.9 chloride 108 bicarb is 29 BUN 3 and creatinine 0.52, AST 74 ALT 49 alk phos 84 albumin 3.3 Lipase 834 Urinalysis is negative for infection UDS negative. Serum alcohol level 374 06/15/2024 Patient is seen and evaluated in follow-up today Review of systems: Constitutional: No reports of fatigue, fever, or chills Cardiovascular: No reports of chest pain or palpitations Respiratory: No reports of shortness of breath or cough GI: No reports of nausea, vomiting, or diarrhea : No reports of dysuria or retention Neurovascular: No reports of weakness or numbness All medications have been reviewed Physical exam: Patient is lying in the bed comfortably, no acute distress, awake alert and oriented. Patient is anxious and shaky.. HEENT: Normocephalic. Neck is supple. Pupils reactive. Nostrils clear. Oral cavity is moist. Neck reveals no JVD, carotid bruits, or thyromegaly. CHEST EXAMINATION: Trachea is central. Symmetrical expansion. Lung andujar clear to auscultation and percussion. CARDIAC: Normal S1, S2 with no gallops. No murmurs ABDOMEN: Soft. Bowel sounds normal. No organomegaly. No abdominal bruits. Extremities: reveal no edema. No clubbing or cyanosis Neurologically awake, alert, oriented x3 with well-coordinated movements. No focal deficits noted Skin: No rash or skin lesions. Psychiatric: Cooperative. Nonsuicidal Musculoskeletal: No joint swelling or deformity. Normal range of motion. Assessment: Acute alcohol intoxication on admission Status post fall and hit her head. CT head showed no acute intracranial process. Normocytic anemia and history of iron deficiency. Severe alcohol abuse and reports to drinking daily Hypertension History of DVT. Patient was on Xarelto. GI prophylaxis. DVT prophylaxis, on Xarelto Full code Plan: Patient will be current on IV hydration with normal saline. Continue with alcohol withdrawal protocol. Thiamine and multivitamins and follow-up closely. Repeat labs show a magnesium of 1.5 and will replace per protocol Continue with ostomy care as patient reports it was changed today as there was some leaking noted. Denies any abdominal pain or discomfort Discussed complete alcohol abstinence and patient works with [facility] and she reports she would like them to come to her home and perform breathalyzers a few times a week. Patient is refusing to go to rehab and reports has been there before and it does not work for her Will await PT/OT therapy evaluation as patient reports to feeling weak and has had multiple falls over the last few months Encouraged increase activity as tolerated We will follow-up with repeat labs in the a.m. and likely discharge in 24 hours Overall prognosis is guarded. Patient is high risk for readmissions given patient's continued alcohol use and noncompliance with cessation. The impression and plan of care has been dictated by Monica Banda, Nurse Practitioner as directed. Dr. Hung MD I have performed a history and examination and MDM of this patient, discussed the same with the dictator, and agree with the dictator's assessment and plan as written ,documented as a scribe. Based on total visit time, I have performed more than 50% of the visit. Objective - Vital Signs Vital signs: Vital Signs Temp 98.1 F 06/15/24 07:15 Pulse 93 06/15/24 07:15 Resp 18 06/15/24 07:15 BP 136/89 06/15/24 07:15 Pulse Ox 94 L 06/15/24 07:15 FiO2 Intake & Output 06/14/24 06/15/24 06/15/24 18:59 06:59 18:59 Intake Total 500 360 118 Balance 500 360 118 Intake: Oral 500 360 118 Other: Voiding Method Toilet Toilet # Voids 3 4 - Labs CBC & Chem 7: 06/15/24 05:43 06/15/24 05:43 Labs: Abnormal Lab Results - Last 24 Hours (Table) 06/15/24 06/15/24 Range/Units 05:43 05:43 WBC 2.58 L (4.50-10.00) X 10*3/uL RBC 3.50 L (4.10-5.20) X 10*6/uL Hgb 10.2 L (12.0-15.0) g/dL Hct 31.5 L (37.2-46.3) % RDW 17.9 H (11.5-14.5) % Plt Count 115 L (140-440) X 10*3/uL Neutrophils # 1.31 L (1.80-7.70) X 10*3/uL Lymphocytes # 0.82 L (0.90-5.00) X 10*3/uL BUN <3.5 L (9.0-27.0) mg/dL BUN/Creatinine Ratio <5.83 L (12.00-20.00) Ratio Calcium 8.3 L (8.7-10.3) mg/dL
[2024-06-15] MEDS: MAGNESIUM SULFATE-D5W PMX 1 GM in DEXTROSE/WATER 1 100ML.BAG IVPB SCH (15:19)
[2024-06-16 08:18] VITALS: BP 128/86; PULSE 89; RESP 16; TEMP 98.5
--- NOTE | 2024-06-20 10:35 | P.DS ---
Providers Date of admission: 06/13/24 19:20 Expected date of discharge: 06/16/24 Attending physician: Marcia Emanuel Primary care physician: Constantine Figueroa [facility] Course: Final diagnosis Acute alcohol intoxication on admission Status post fall and hit her head. CT head showed no acute intracranial process. Normocytic anemia and history of iron deficiency. Severe alcohol abuse and reports to drinking daily Hypomagnesemia Hypertension History of DVT. Patient was on Xarelto. GI prophylaxis. DVT prophylaxis, on Xarelto Full code Discharge disposition Patient is being discharged in a stable condition with guarded prognosis to [facility]. Patient will follow-up with Dr. Figueroa in the outpatient setting upon discharge. Patient is to continue with complete alcohol cessation and follow-up with [facility] as scheduled. Total time taken is greater than 35 minutes. Hospital course This is a 59-year-old female who was recently admitted with EtOH intoxication along with falls and reported she hit her head being closely monitored. Patient maintained on CIWA protocol also evaluated by PT/OT therapy doing well and will be going home. Patient does follow with [facility] outpatient and reports she would like them to come to the home 3 times a week for breathalyzer as she wants to quit drinking. Patient has been having recurrent falls and underwent CT of the brain showing no acute process. Patient's magnesium slightly low and replaced per protocol and recommend outpatient follow-up with primary care provider on discharge. Currently no reports of chest pain, shortness of breath, or palpitations. Patient is afebrile. No reports of nausea or vomiting and patient is tolerating diet. Patient will be discharged home today. High risk for readmissions given patient's continued alcohol abuse and noncompliance. Physical exam: Gen: This is a 59-year-old female who is awake, alert and oriented x 3, well- developed, well-nourished HEENT: Head is atraumatic, normocephalic. Pupils equal, round. Sclerae is anicteric. NECK: Supple. No JVD. No lymphadenopathy. No thyromegaly. LUNGS: Clear to auscultation. No wheezes or rhonchi. No intercostal retractions. HEART: Regular rate and rhythm. No murmur. ABDOMEN: Soft. Bowel sounds are present. No masses. No tenderness. EXTREMITIES: No pedal edema. No calf tenderness. NEUROLOGICAL: Patient is awake, alert and oriented x3. Cranial nerves 2 through 12 are grossly intact. Please refer to medication reconciliation sheet for a list of medications. The impression and plan of care has been dictated by Monica Banda, Nurse Practitioner as directed. Dr. Hung MD I have performed a history and examination and MDM of this patient, discussed the same with the dictator, and agree with the dictator's assessment and plan as written ,documented as a scribe. Based on total visit time, I have performed more than 50% of the visit. Patient Condition at Discharge: Fair Plan - Discharge Summary Discharge Rx Participant: No New Discharge Prescriptions: New Ferrous Sulfate [Iron (65 MG Elemental)] 325 mg PO W/LUNCH #30 tab Multivitamins, Thera [Multivitamin (formulary)] 1 each PO DAILY #30 tab Thiamine [Vitamin B-1] 100 mg PO DAILY 30 Days #30 tab Folic Acid 1 mg PO DAILY #30 tab Pantoprazole [Protonix] 40 mg PO AC-BRKFST #30 tab Discharge Medication List Ferrous Sulfate [Iron (65 MG Elemental)] 325 mg PO W/LUNCH #30 tab 06/16/24 [Rx] Folic Acid 1 mg PO DAILY #30 tab 06/16/24 [Rx] Multivitamins, Thera [Multivitamin (formulary)] 1 each PO DAILY #30 tab 06/16/24 [Rx] Pantoprazole [Protonix] 40 mg PO AC-BRKFST #30 tab 06/16/24 [Rx] Thiamine [Vitamin B-1] 100 mg PO DAILY 30 Days #30 tab 06/16/24 [Rx] Follow up Appointment(s)/Referral(s): [facility] [Outside] - As Needed [facility], [NON-STAFF] - As Needed Constantine Figueroa, [Primary Care Provider] - 1-2 days Activity/Diet/Wound Care/Special Instructions: Please schedule a follow up appointment with Dr. Figueroa, not a Nurse Practitioner in the office. A follow up appointment with Dr. Figueroa must be made in order for you to receive home care services. Discharge/Stand Alone Forms: AA Meetings [address] - [facility], AA Meetings [facility], Who Do I Call?, Community Resources, Outpatient Counseling, Inp Substance Abuse Facilities Discharge Disposition: HOME WITH HOME HEALTH SERVICES
== END 2024-06-16 14:17 | disposition home health service (06) ==
LOC: EC 12:35 → 6NMEDSUR 19:20
PROVIDERS: ADMIT Hospitalist; ATTEND Hospitalist
DX: F10.229 Alcohol dependence with intoxication, unspecified (principal); S09.90XA Unspecified injury of head, initial encounter; W19.XXXA Unspecified fall, initial encounter; Y90.8 Blood alcohol level of 240 mg/100 ml or more; I10 Essential (primary) hypertension; E83.42 Hypomagnesemia; D64.9 Anemia, unspecified; R29.6 Repeated falls; R62.7 Adult failure to thrive; F41.9 Anxiety disorder, unspecified; F32.A Depression, unspecified; Z79.01 Long term (current) use of anticoagulants; Z79.899 Other long term (current) drug therapy; Z88.1 Allergy status to other antibiotic agents; Z86.718 Personal history of other venous thrombosis and embolism; Z87.891 Personal history of nicotine dependence; Z71.41 Alcohol abuse counseling and surveillance of alcoholic
CPT/HCPCS: 96361 ×3; 96365; 96366; 96375; 99285; 36415; 97161; 80053 ×2; 80048; 82150; 83690; 83735 ×4; 84100; 85025 ×3; 85610; 81003; 80306; 72125; 70450; G0378 ×4; G0480; J2060; J2405; J3475; 80320

== ENCOUNTER 2024-06-23 15:14 | Emergency (ER) | payer MEDICARE, OTHER ==
[2024-06-23 15:27] LABS: Glucose,Whole Blood 79 mg/dL (70-110)
--- NOTE | 2024-06-23 15:34 | ED ---
Fall HPI - General Chief Complaint: Fall Stated Complaint: Fall Time Seen by Provider: 06/23/24 15:16 Source: EMS Mode of arrival: EMS - History of Present Illness Initial Comments: This patient is a 59-year-old woman with history of previous DVT, taking Xarelto, who states that she had fallen at home. The patient states that she tripped over her cat, fell backwards, struck her head. She does not believe she lost consciousness she states she was dazed. She complains of pain just to the right of the occiput. Patient denies neurologic symptoms. She denies other injuries. She admits to having some alcohol at home. MD Complaint: fall Onset/Timin -: hour(s) Fall From: standing When Fall Occurred: just prior to arrival Fall Witnessed: no Place Fall Occurred: home Loss of Consciousness: none Prolonged Down Time?: no Symptoms Prior to Fall: none Location: head Severity: moderate Quality: aching Context: tripped/slipped Associated Symptoms: headache - Related Data Home Medications Medication Instructions Recorded Confirmed Ferrous Sulfate [Iron (65 MG 325 mg PO DIRECTED 07/05/24 07/05/24 Elemental)] Folic Acid 1 mg PO DIRECTED 07/05/24 07/05/24 Multivitamins, Thera [Multivitamin 1 tab PO DIRECTED 07/05/24 07/05/24 (formulary)] Pantoprazole [Protonix] 40 mg PO DIRECTED 07/05/24 07/05/24 Potassium Chloride ER [K-Dur 10] 10 meq PO DIRECTED 07/05/24 07/05/24 QUEtiapine [SEROquel] 50 mg PO DIRECTED 07/05/24 07/05/24 Thiamine [Vitamin B-1] 100 mg PO DIRECTED 07/05/24 07/05/24 traZODone HCL 100 mg PO DIRECTED 07/05/24 07/05/24 Allergies Allergy/AdvReac Type Severity Reaction Status Date / Time bacitracin Allergy Rash/Hives Verified 07/05/24 17:09 cephalexin [From Keflex] Allergy Itching Verified 07/05/24 17:09 Review of Systems ROS Statement: Those systems with pertinent positive or pertinent negative responses have been documented in the HPI. ROS Other: All systems not noted in ROS Statement are negative. Constitutional: Denies: fever, chills Eyes: Denies: vision change ENT: Denies: hearing loss, epistaxis, congestion Respiratory: Denies: cough, dyspnea Cardiovascular: Denies: chest pain, syncope Gastrointestinal: Denies: abdominal pain, vomiting Genitourinary: Denies: dysuria, hematuria Musculoskeletal: Denies: back pain, arthralgia Skin: Denies: rash Neurological: Reports: headache. Denies: weakness, numbness, confusion Hematological/Lymphatic: Reports: easy bleeding Past Medical History Past Medical History: Deep Vein Thrombosis (DVT), Hypertension Additional Past Medical History / Comment(s): concussion History of Any Multi-Drug Resistant Organisms: None Reported Past Surgical History: Bowel Resection Additional Past Surgical History / Comment(s): jaw surgery, colostomy 01/2023 Past Anesthesia/Blood Transfusion Reactions: No Reported Reaction Past Psychological History: Anxiety, Depression Smoking Status: Former smoker Past Alcohol Use History: Abuse, Daily, Heavy Past Drug Use History: None Reported - Past Family History Father Additional Family Medical History / Comment(s): Spleen CA Mother Family Medical History: COPD Additional Family Medical History / Comment(s): empysema General Exam General appearance: alert, in no apparent distress Head exam: Present: normocephalic, other (Contusion to the right of the occiput with localized tenderness. No palpable deformity.) Eye exam: Present: normal appearance, PERRL, EOMI. Absent: scleral icterus, conjunctival injection ENT exam: Present: normal oropharynx, TM's normal bilaterally, normal external ear exam Neck exam: Present: normal inspection, full ROM. Absent: tenderness, meningismus Respiratory exam: Present: normal lung sounds bilaterally. Absent: respiratory distress, wheezes, rales, rhonchi, stridor, chest wall tenderness, accessory muscle use Cardiovascular Exam: Present: regular rate, normal rhythm, normal heart sounds. Absent: systolic murmur, diastolic murmur, rubs, gallop GI/Abdominal exam: Present: soft. Absent: distended, tenderness, guarding, rebound, rigid, mass Extremities exam: Present: normal inspection, normal capillary refill. Absent: pedal edema, calf tenderness Back exam: Present: normal inspection. Absent: CVA tenderness (R), CVA tenderness (L) Neurological exam: Present: alert, oriented X3. Absent: motor sensory deficit Skin exam: Present: warm, dry, intact, normal color. Absent: rash Course Vital Signs 06/23/24 06/23/24 15:21 18:42 Temperature 97.4 F L Pulse Rate 96 91 Respiratory 18 18 Rate Blood Pressure 120/86 O2 Sat by Pulse 93 L 97 Oximetry Medical Decision Making - Medical Decision Making The patient had CT scan of the brain that I interpreted as negative for acute bony injury, negative for acute intracranial hemorrhage or mass effect Was pt. sent in by a medical professional or institution (, PA, [employer] [facility], urgent care, hospital, or prison...) When possible be specific @ -[No] Did you speak to anyone other than the patient for history (EMS, parent, family, police, friend...)? What history was obtained from this source @ -[No] Did you review nursing and triage notes (agree or disagree)? Why? @ -[I reviewed and agree with nursing and triage notes] Were old charts reviewed (outside hosp., previous admission, EMS record, old EKG, old radiological studies, urgent care reports/EKG's, prison records)? Report findings @ -[No old charts were reviewed] Differential Diagnosis (chest pain, altered mental status, abdominal pain women, abdominal pain men, vaginal bleeding, weakness, fever, dyspnea, syncope, headache, dizziness, GI bleed, back pain, seizure, CVA, palpatations, mental health, musculoskeletal)? @ -[Differential Musculoskeletal Muscular strain, contusion, ligament sprain, fracture, arthritis, septic arthritis, bursitis, cellulitis, muscle spasm, nerve compression, DVT, arterial occlusion, herpes zoster, electrolyte abnormality, tumor, acute intracranial injury.... This is not meant to be in all inclusive list EKG interpreted by me (3pts min.). @ -[As above] X-rays interpreted by me (1pt min.). @ -[None done] CT interpreted by me (1pt min.). @ -[None done] U/S interpreted by me (1pt. min.). @ -[None done] What testing was considered but not performed or refused? (CT, X-rays, U/S, labs)? Why? @ -[None] What meds were considered but not given or refused? Why? @ -[None] Did you discuss the management of the patient with other professionals (professionals i.e. , PA, [employer] [facility], lab, RT, psych nurse, professor of social work, tangible personal property appraiser, teacher, radio officer, ed case manager)? Give summary @ -[No] Was smoking cessation discussed for >3mins.? @ -[No] Was critical care preformed (if so, how long)? @ -[No] Were there social determinants of health that impacted care today? How? (Homelessness, low income, unemployed, alcoholism, drug addiction, transportation, low edu. Level, literacy, decrease access to med. care, skilled nursing, rehab)? @ -[No] Was there de-escalation of care discussed even if they declined (Discuss DNR or withdrawal of care, Hospice)? DNR status @ -[No] What co-morbidities impacted this encounter? (DM, HTN, Smoking, COPD, CAD, Cancer, CVA, ARF, Chemo, Hep., AIDS, mental health diagnosis, sleep apnea, morbid obesity)? @ -[None] Was patient admitted / discharged? Hospital course, mention meds given and route, prescriptions, significant lab abnormalities, going to OR and other pertinent info. @ -[hospital course] Undiagnosed new problem with uncertain prognosis? @ -[No] Drug Therapy requiring intensive monitoring for toxicity (Heparin, Nitro, Insulin, Cardizem)? @ -[No] Were any procedures done? @ -[No] Diagnosis/symptom? @ -[Acute fall Acute mild head injury Acute, or Chronic, or Acute on Chronic? @ -[Acute Uncomplicated (without systemic symptoms) or Complicated (systemic symptoms)? @ -[Uncomplicated Side effects of treatment? @ -[No] Exacerbation, Progression, or Severe Exacerbation? @ -[No] Poses a threat to life or bodily function? How? (Chest pain, USA, ID, pneumonia, PE, COPD, DKA, ARF, appy, cholecystitis, CVA, Diverticulitis, Homicidal, Suicidal, threat to staff... and all critical care pts) @ -[No] - Lab Data Lab Results 06/23/24 Range/Units 15:25 POC Glucose (mg/dL) 79 (70-110) mg/dL POC Glu [employer] MALIA Laws - EKG Data -: EKG Interpreted by Me EKG shows normal: sinus rhythm ( rate 91 bpm), axis (Normal), intervals (Normal), QRS complexes (Normal) Interpretation: nonspecific ST-T wave changes Disposition Clinical Impression: Fall, Head injury Disposition: HOME SELF-CARE Condition: Good Instructions (If sedation given, give patient instructions): Head Injury (ED), Fall Prevention (ED) Is patient prescribed a controlled substance at d/c from ED?: No Referrals: Constantine Figueroa DO [Primary Care Provider] - 1-2 days
[2024-06-23 15:40] VITALS: BP 120/86; RESP 18; TEMP 97.4
--- NOTE | 2024-06-23 17:38 | CT ---
EXAMINATION TYPE: CT brain wo con DATE OF EXAM: 06/23/2024 COMPARISON: 06/13/2024 HISTORY: fall, headache CT DLP: [address] of the brain was performed. The ventricles, basal cisterns and sulci overlying the cerebral convexities demonstrate mild enlargem ent. There is no evidence for intracranial hemorrhage or sulcal effacement. There is decreased attenuation about the periventricular white matter and deep white matter of both c erebral hemispheres, compatible with chronic small vessel ischemia. Differential diagnosis does inclu de demyelination. No mass effects are seen.No midline shift. Osseous calvarium is intact. If symptoms persist consider MRI. IMPRESSION: 1. Age related atrophic and chronic small vessel ischemic change without acute intracranial process s een at this time. [facility], , 06/23/2024 5:36 PM
[2024-06-23 18:45] VITALS: PULSE 91
== END 2024-06-23 18:42 | disposition home or self-care (01) ==
LOC: EC 15:14
DX: S09.90XA Unspecified injury of head, initial encounter (principal); Z88.1 Allergy status to other antibiotic agents; Z88.8 Allergy status to other drugs, medicaments and biological substances; Z87.891 Personal history of nicotine dependence; W01.0XXA Fall on same level from slipping, tripping and stumbling without subsequent striking against object, initial encounter
CPT/HCPCS: 36415; 70450; 93005; 99284

== ENCOUNTER 2024-07-05 13:52 | Inpatient (IN) | payer MEDICARE ==
[2024-07-05] MEDS: SODIUM CHLORIDE 0.9% 1,000 ML IV STA (14:42)
[2024-07-05] MEDS: LORazepam 2 MG/ML INJ IV STA (14:44)
[2024-07-05 15:09] LABS: ALT 25 U/L (4-34); AST 54 U/L (14-36); African American GFR (CKD) >90 (>60 ml/min/1.73 sqM); Albumin 3.2 g/dL (3.5-5.0); Alkaline Phosphatase 60 U/L (38-126); Anion Gap 8 mmol/L; Blood Urea Nitrogen 4 mg/dL (7-17); Calcium 7.9 mg/dL (8.4-10.2); Carbon Dioxide 29 mmol/L (22-30); Chloride 102 mmol/L (98-107); Glucose 93 mg/dL (74-99); Lipase 357 U/L (23-300); Magnesium 1.7 mg/dL (1.6-2.3); Non-African American GFR(CKD) >90 (>60 ml/min/1.73 sqM); Phosphorus 3.9 mg/dL (2.5-4.5); Potassium 3.3 mmol/L (3.5-5.1); Sodium 139 mmol/L (137-145); Total Bilirubin 0.5 mg/dL (0.2-1.3); Total Protein 5.8 g/dL (6.3-8.2)
--- NOTE | 2024-07-05 15:20 | ED ---
Alcohol HPI - General Chief Complaint: Alcohol Stated Complaint: ETOH Time Seen by Provider: 07/05/24 13:58 Source: patient, EMS, RN notes reviewed Mode of arrival: EMS Limitations: no limitations - History of Present Illness Initial Comments: This is a 59-year-old female who presents to the emergency department for alcohol intoxication. Patient has a history of chronic alcoholism leading to recurrent emergency department visits. When asked how much she had to drink today she states "quite a bit", and will not give an amount. [facility] comes out to her house frequently and they came out today due to her anxiety. They noted the patient to be intoxicated on arrival and she blew 0.4 on the breathalyzer, prompting them to call EMS. Patient denies any complaints at this time aside from anxiety. MD Complaint: alcohol intoxication - Related Data Home Medications Medication Instructions Recorded Confirmed Ferrous Sulfate [Iron (65 MG 325 mg PO DIRECTED 07/05/24 07/05/24 Elemental)] Folic Acid 1 mg PO DIRECTED 07/05/24 07/05/24 Multivitamins, Thera [Multivitamin 1 tab PO DIRECTED 07/05/24 07/05/24 (formulary)] Pantoprazole [Protonix] 40 mg PO DIRECTED 07/05/24 07/05/24 Potassium Chloride ER [K-Dur 10] 10 meq PO DIRECTED 07/05/24 07/05/24 QUEtiapine [SEROquel] 50 mg PO DIRECTED 07/05/24 07/05/24 Thiamine [Vitamin B-1] 100 mg PO DIRECTED 07/05/24 07/05/24 traZODone HCL 100 mg PO DIRECTED 07/05/24 07/05/24 Allergies Allergy/AdvReac Type Severity Reaction Status Date / Time bacitracin Allergy Rash/Hives Verified 07/05/24 17:09 cephalexin [From Keflex] Allergy Itching Verified 07/05/24 17:09 Review of Systems ROS Statement: Those systems with pertinent positive or pertinent negative responses have been documented in the HPI. ROS Other: All systems not noted in ROS Statement are negative. Past Medical History Past Medical History: Deep Vein Thrombosis (DVT), Hypertension Additional Past Medical History / Comment(s): concussion History of Any Multi-Drug Resistant Organisms: None Reported Past Surgical History: Bowel Resection Additional Past Surgical History / Comment(s): jaw surgery, colostomy 01/2023 Past Anesthesia/Blood Transfusion Reactions: No Reported Reaction Past Psychological History: Anxiety, Depression Smoking Status: Former smoker Past Alcohol Use History: Abuse, Daily, Heavy Past Drug Use History: None Reported - Past Family History Father Additional Family Medical History / Comment(s): Spleen CA Mother Family Medical History: COPD Additional Family Medical History / Comment(s): empysema General Exam Limitations: no limitations General appearance: alert, appears intoxicated Head exam: Present: atraumatic, normocephalic, normal inspection Respiratory exam: Present: normal lung sounds bilaterally. Absent: respiratory distress, wheezes, rales, rhonchi, stridor Cardiovascular Exam: Present: regular rate, normal rhythm, normal heart sounds. Absent: systolic murmur, diastolic murmur, rubs, gallop, clicks Neurological exam: Present: alert, oriented X3, CN II-XII intact Psychiatric exam: Present: normal affect, normal mood Skin exam: Present: warm, dry, intact, normal color. Absent: rash Course Vital Signs 07/05/24 07/05/24 13:53 17:55 Temperature 97.8 F 97.4 F L Pulse Rate 85 80 Respiratory 20 16 Rate Blood Pressure 109/72 113/74 O2 Sat by Pulse 92 L 95 Oximetry Medical Decision Making - Medical Decision Making This is a 59-year-old female who presents to the emergency department for alcohol intoxication. Was pt. sent in by a medical professional or institution? @ -No Did you speak to anyone other than the patient for history? @ -EMS provided the majority of the information. Did you review nursing and triage notes? @ -Yes, and I agree, it is accurate with regards to the patient's symptoms. Were old charts reviewed? @ -No Differential Diagnosis? @ -Sympathomimetic syndrome, anti-muscarinic syndrome, serotonin syndrome, neuroleptic malignant syndrome, thyrotoxicosis, encephalitis, acute psychosis, hypoglycemia, trauma, sepsis. This is not meant to be an all-inclusive list. EKG interpreted by me (3pts min.)? @ -Not obtained X-rays interpreted by me (1pt min.)? @ -Not obtained CT interpreted by me (1pt min.)? @ -Not obtained U/S interpreted by me (1pt. min.)? @ -Not obtained What testing was considered but not performed? (CT, X-rays, U/S, labs)? Why? @ -None What meds were considered but not given? Why? @ -None Did you discuss the management of the patient with other professionals? @ -Yes, Dr. Persaud, who accepts the patient for admission Did you reconcile home meds? @ -No Was smoking cessation discussed for >3mins.? @ -No Was critical care preformed (if so, how long)? @ -No Were there social determinants of health that impacted care today? How? (Homelessness, low income, unemployed, alcoholism, drug addiction, transportation, low edu. Level, literacy, decrease access to med. care, care home, rehab)? @ -Alcoholism, leading to her visit today. Was there de-escalation of care discussed even if they declined? (Discuss DNR or withdrawal of care, Hospice)? @ -No What co-morbidities impacted this encounter? (DM, HTN, Smoking, COPD, CAD, Cancer, CVA, Hep., AIDS, mental health diagnosis, sleep apnea, morbid obesity)? @ -Alcoholism Was patient admitted / discharged? @ -Admitted. Lab work demonstrates mild leukopenia, which is stable when compared with prior values. Alcohol level of 438. Patient clinically intoxicated on exam. Patient subsequently admitted to medicine for alcohol intoxication. CIWA protocol initiated. She was also started on maintenance IV fluids. Case discussed with ED attending Dr. Rubin. Undiagnosed new problem with uncertain prognosis? @ -None Drug Therapy requiring intensive monitoring for toxicity (Heparin, Nitro, Insulin, Cardizem)? @ -None Were any procedures done? @ -None Diagnosis/symptom? @ -Alcohol intoxication Acute, or Chronic, or Acute on Chronic? @ -Acute Uncomplicated (without systemic symptoms) or Complicated (systemic symptoms)? @ -Complicated Side effects of treatment? @ -None Exacerbation, Progression, or Severe Exacerbation] @ -Not applicable Poses a threat to life or bodily function? @ -Yes, can lead to withdrawal seizures and DTs, which can be life threatening - Lab Data Result diagrams: 07/05/24 14:41 07/05/24 14:41 Lab Results 07/05/24 07/05/24 07/05/24 Range/Units 14:41 14:41 14:41 WBC 2.2 L (3.8-10.6) k/uL RBC 3.85 (3.80-5.40) m/uL Hgb 11.6 (11.4-16.0) gm/dL Hct 35.6 (34.0-46.0) % MCV 92.4 (80.0-100.0) fL MCH 30.2 (25.0-35.0) pg MCHC 32.7 (31.0-37.0) g/dL RDW 17.5 H (11.5-15.5) % Plt Count 178 (150-450) k/uL MPV 7.8 Neutrophils % (Manual) 23 % Band Neuts % (Manual) 1 % Lymphocytes % (Manual) 61 % Monocytes % (Manual) 14 % Eosinophils % (Manual) 1 % Neutrophils # (Manual) 0.50 L (1.3-7.7) k/uL Lymphocytes # (Manual) 1.34 (1.0-4.8) k/uL Monocytes # (Manual) 0.31 (0-1.0) k/uL Eosinophils # (Manual) 0.02 (0-0.7) k/uL Nucleated RBCs 0 (0-0) /100 WBC Manual Slide Review Performed Anisocytosis Slight Target Cells Present PT 11.0 (10.0-12.5) sec INR 1.0 (<1.2) Sodium 139 (137-145) mmol/L Potassium 3.3 L (3.5-5.1) mmol/L Chloride 102 (98-107) mmol/L Carbon Dioxide 29 (22-30) mmol/L Anion Gap 8 mmol/L BUN 4 L (7-17) mg/dL Creatinine 0.47 L (0.52-1.04) mg/dL Est GFR (CKD-EPI)AfAm >90 (>60 ml/min/1.73 sqM) Est GFR (CKD-EPI)NonAf >90 (>60 ml/min/1.73 sqM) Glucose 93 (74-99) mg/dL Calcium 7.9 L (8.4-10.2) mg/dL Phosphorus 3.9 (2.5-4.5) mg/dL Magnesium 1.7 (1.6-2.3) mg/dL Total Bilirubin 0.5 (0.2-1.3) mg/dL AST 54 H (14-36) U/L ALT 25 (4-34) U/L Alkaline Phosphatase 60 (38-126) U/L Total Protein 5.8 L (6.3-8.2) g/dL Albumin 3.2 L (3.5-5.0) g/dL Lipase 357 H (23-300) U/L Serum Alcohol 438 H* mg/dL Disposition Clinical Impression: Alcohol intoxication Disposition: ADMITTED IP TO THIS HOSP Condition: Good
[2024-07-05 15:22] LABS: Anisocytosis Slight; HCT 35.6 % (34.0-46.0); HGB 11.6 gm/dL (11.4-16.0); MCH 30.2 pg (25.0-35.0); MCHC 32.7 g/dL (31.0-37.0); MCV 92.4 fL (80.0-100.0); Mean Platelet Volume 7.8; Platelet Count 178 k/uL (150-450); RBC 3.85 m/uL (3.80-5.40); RDW 17.5 % (11.5-15.5); WBC 2.2 k/uL (3.8-10.6)
[2024-07-05 15:33] LABS: Alcohol 438 mg/dL
[2024-07-05] MEDS ORDERED: ACETAMINOPHEN TAB 325 MG TAB PO PRN (15:52)
[2024-07-05] MEDS ORDERED: ONDANSETRON 4 MG/2 ML VIAL IVP PRN (15:52)
[2024-07-05] MEDS ORDERED: MORPHINE SULFATE 4 MG/ML SYRINGE IV PRN (15:52)
[2024-07-05] MEDS ORDERED: NALOXONE 0.4 MG/ML 1 ML VIAL IV PRN (15:52)
[2024-07-05] MEDS ORDERED: HYDROcodone/APAP 5-325MG 1 EACH TAB PO PRN (15:52)
[2024-07-05] MEDS ORDERED: LORazepam 2 MG/ML INJ IV PRN ×4 (16:16)
[2024-07-05 16:35] LABS: Band Neutrophils % 1 %; Eosinophils # (M) 0.02 k/uL (0-0.7); Lymphocytes # (M) 1.34 k/uL (1.0-4.8); Monocytes # (M) 0.31 k/uL (0-1.0); Neutrophils % (M) 23 %; Nucleated Red Blood Cells 0 /100 WBC (0-0); Total Cells Counted 100
[2024-07-05 16:37] LABS: Target Cells Present
[2024-07-05] MEDS: THIAMINE 100 MG/ML 2 ML VIAL IM STA (17:21)
[2024-07-06 01:34] LABS: Amphetamine Screen,Urine Not Detected (NotDetected); Barbiturate Screen,Urine Not Detected (NotDetected); Benzodiazepines Screen,Urine Not Detected (NotDetected); Cocaine Screen,Urine Not Detected (NotDetected); Methadone Screen, Urine Not Detected (NotDetected); Opiate Screen,Urine Not Detected (NotDetected); Oxycodone Screen, Urine Not Detected (NotDetected); Phencyclidine Screen,Urine Not Detected (NotDetected); Tricyclic Antidepressant,Urine Not Detected (NotDetected)
[2024-07-06 01:35] LABS: Urn Cannabinoid Scrn Not Detected (NotDetected)
[2024-07-06] MEDS: PANTOPRAZOLE 40 MG/10 ML VIAL IV SCH (09:01)
[2024-07-06] MEDS: LORazepam 1 MG TAB PO PRN (09:01)
[2024-07-06] MEDS: THIAMINE 100 MG TAB PO SCH (09:01)
[2024-07-06] MEDS: MULTIVITAMINS, THERA 1 EACH TAB PO SCH (09:01)
[2024-07-06] MEDS: FOLIC ACID 1 MG TAB PO SCH (09:01)
--- NOTE | 2024-07-06 14:16 | P.HPIM ---
History of Present Illness H&P Date: 07/06/24 This is a pleasant 58-year-old female with medical history significant for chronic alcoholism, hypertension, DVT, anxiety/depression, former smoker. Patient comes into the hospital she is intoxicated sent in by [facility]. [facility] mental health to the patient's apartment on Wednesday for a breathalyzer she did not pass was sent to the hospital for evaluation. Patient did not want to comment on how much she is drinking but admits to daily. States that [facility] did not brethalyze her on Wednesday. She was admitted to the hospital for monitoring started on ativan ciwa protocol. She is not going through active withdrawals at this time. Potassium 3.3, magnesium 1.7, AST 54, Lipase 357. U rinalysis negative. Patient has no acute complaints. She does report to frequent falling. Has had a worsening progression of vision in her left eye states she has an appt with her opthmologist coming up. She does have 3 abbe to the back of her head from a prior fall and admission which can be removed today. She is wanting to be discharged home. REVIEW OF SYSTEMS: CONSTITUTIONAL: N patiento fever, no malaise, no fatigue. HEENT: No recent visual problems or hearing problems. Denied any sore throat. CARDIOVASCULAR: No chest pain, orthopnea, PND, no palpitations, no syncope. PULMONARY: No shortness of breath, no cough, no hemoptysis. GASTROINTESTINAL: No diarrhea, no nausea, no vomiting, no abdominal pain. NEUROLOGICAL: No headaches, no weakness, no numbness. HEMATOLOGICAL: Denies any bleeding or petechiae. GENITOURINARY: Denies any burning micturition, frequency, or urgency. MUSCULOSKELETAL/RHEUMATOLOGICAL: Denies any joint pain, swelling, or any muscle pain. ENDOCRINE: Denies any polyuria or polydipsia. The rest of the 14-point review of systems is negative. PHYSICAL EXAMINATION: GENERAL: The patient is alert and oriented x3, not in any acute distress. Well developed, well nourished. HEENT: Pupils are round and equally reacting to light. EOMI. No scleral icterus. No conjunctival pallor. Normocephalic, atraumatic. No pharyngeal erythema. No thyromegaly. CARDIOVASCULAR: S1 and S2 present. No murmurs, rubs, or gallops. PULMONARY: Chest is clear to auscultation, no wheezing or crackles. ABDOMEN: Soft, nontender, nondistended, normoactive bowel sounds. No palpable organomegaly. MUSCULOSKELETAL: No joint swelling or deformity. EXTREMITIES: No cyanosis, clubbing, or pedal edema. NEUROLOGICAL: Gross neurological examination did not reveal any focal deficits. SKIN: No rashes. Assessment and plan Acute alcohol intoxication Hypokalemia hypomagnesemia Elevated AST chronic alcoholism Hypertension History of DVT Anxiety/depression Bowel resection with colostomy Former smoker Alcoholism GI prophylaxis: Protonix DVT prophylaxis:Heparin subcu Full code Plan Monitor patient for alcohol withdrawal Continue ativan [facility] protocol. Replace potassium magnesium Discharge home The impression and plan of care has been dictated by Nurse Anila Pr actitioner as directed. Dr. Erin MD I have performed a history and physical examination and medical decision making of this patient, discussed the same with the dictator, and agree with the dicta tors assessment and plan as written, documented as a scribe. Based on total visit time, I have performed more than 50% of this visit. Past Medical History Past Medical History: Deep Vein Thrombosis (DVT), Hypertension Additional Past Medical History / Comment(s): concussion History of Any Multi-Drug Resistant Organisms: None Reported Past Surgical History: Bowel Resection Additional Past Surgical History / Comment(s): jaw surgery, colostomy 01/2023 Past Anesthesia/Blood Transfusion Reactions: No Reported Reaction Past Psychological History: Anxiety, Depression Smoking Status: Former smoker Past Alcohol Use History: Abuse, Daily, Heavy Past Drug Use History: None Reported - Past Family History Father Additional Family Medical History / Comment(s): Spleen CA Mother Family Medical History: COPD Additional Family Medical History / Comment(s): empysema Medications and Allergies Home Medications Medication Instructions Recorded Confirmed Type Ferrous Sulfate [Iron (65 MG 325 mg PO DIRECTED 07/05/24 07/05/24 History Elemental)] Folic Acid 1 mg PO DIRECTED 07/05/24 07/05/24 History Multivitamins, Thera [Multivitamin 1 tab PO DIRECTED 07/05/24 07/05/24 History (formulary)] Pantoprazole [Protonix] 40 mg PO DIRECTED 07/05/24 07/05/24 History Potassium Chloride ER [K-Dur 10] 10 meq PO DIRECTED 07/05/24 07/05/24 History QUEtiapine [SEROquel] 50 mg PO DIRECTED 07/05/24 07/05/24 History Thiamine [Vitamin B-1] 100 mg PO DIRECTED 07/05/24 07/05/24 History traZODone HCL 100 mg PO DIRECTED 07/05/24 07/05/24 History Allergies Allergy/AdvReac Type Severity Reaction Status Date / Time bacitracin Allergy Rash/Hives Verified 07/05/24 17:09 cephalexin [From Keflex] Allergy Itching Verified 07/05/24 17:09 Physical Exam Vitals: Vital Signs Temp Pulse Pulse Resp BP BP Pulse Ox 07/06/24 11:37 16 07/06/24 07:22 99 F 103 H 16 137/87 94 L 07/06/24 01:26 98.7 F 99 18 118/72 92 L 07/05/24 18:22 97.5 F L 83 18 113/78 93 L 07/05/24 17:55 97.4 F L 80 16 113/74 95 Intake and Output 07/05/24 07/06/24 07/06/24 22:59 06:59 14:59 Intake Total 300 Balance 300 Intake: Oral 300 Other: # Voids 3 Weight 99.79 kg Results CBC & Chem 7: 07/05/24 14:41 07/05/24 14:41 Labs: Abnormal Lab Results - Last 24 Hours (Table) 07/05/24 07/05/24 Range/Units 14:41 14:41 WBC 2.2 L (3.8-10.6) k/uL RDW 17.5 H (11.5-15.5) % Neutrophils # (Manual) 0.50 L (1.3-7.7) k/uL Potassium 3.3 L (3.5-5.1) mmol/L BUN 4 L (7-17) mg/dL Creatinine 0.47 L (0.52-1.04) mg/dL Calcium 7.9 L (8.4-10.2) mg/dL AST 54 H (14-36) U/L Total Protein 5.8 L (6.3-8.2) g/dL Albumin 3.2 L (3.5-5.0) g/dL Lipase 357 H (23-300) U/L Serum Alcohol 438 H* mg/dL Thrombosis Risk Factor Assmnt - Choose All That Apply Any of the Below Risk Factors Present?: Yes Each Factor Represents 1 point: Obesity (BMI >25) Other Risk Factors: Yes Each Risk Factor Represents 2 Points: Age 61-74 years Other congenital or acquired thrombophilia - If yes, enter type in comment: No Thrombosis Risk Factor Assessment Total Risk Factor Score: 3 Thrombosis Risk Factor Assessment Level: Moderate Risk Assessment and Plan Time with Patient: Less than 30
--- NOTE | 2024-07-06 14:17 | P.DS ---
Providers Date of admission: 07/05/24 16:33 Attending physician: Georges Lawrence MD Primary care physician: [facility] Course: This is a pleasant 58-year-old female with medical history significant for chronic alcoholism, hypertension, DVT, anxiety/depression, former smoker. Patient comes into the hospital she is intoxicated [facility] mental health to the patient's apartment on Wednesday for a breathalyzer she did not pass was sent to the hospital for evaluation. Patient did not want to comment on how much she is drinking but admits to daily. States that [facility] did not brethalyze her on Wednesday. She was admitted to the hospital for monitoring started on ativan ciwa protocol. She is not going through active withdrawals at this time. Potassium 3.3, magnesium 1.7, AST 54, Lipase 357. Urinalysis negative. Patient has no acute complaints. She does report to frequent falling. Has had a worsening progression of vision in her left eye states she has an appt with her opthmologist coming up. She does have 3 abbe to the back of her head from a prior fall and admission which can be removed today. She is wanting to be discharged home. REVIEW OF SYSTEMS: CONSTITUTIONAL: N patiento fever, no malaise, no fatigue. HEENT: No recent visual problems or hearing problems. Denied any sore throat. CARDIOVASCULAR: No chest pain, orthopnea, PND, no palpitations, no syncope. PULMONARY: No shortness of breath, no cough, no hemoptysis. GASTROINTESTINAL: No diarrhea, no nausea, no vomiting, no abdominal pain. NEUROLOGICAL: No headaches, no weakness, no numbness. HEMATOLOGICAL: Denies any bleeding or petechiae. GENITOURINARY: Denies any burning micturition, frequency, or urgency. MUSCULOSKELETAL/RHEUMATOLOGICAL: Denies any joint pain, swelling, or any muscle pain. ENDOCRINE: Denies any polyuria or polydipsia. The rest of the 14-point review of systems is negative. PHYSICAL EXAMINATION: GENERAL: The patient is alert and oriented x3, not in any acute distress. Well developed, well nourished. HEENT: Pupils are round and equally reacting to light. EOMI. No scleral icterus. No conjunctival pallor. Normocephalic, atraumatic. No pharyngeal erythema. No thyromegaly. CARDIOVASCULAR: S1 and S2 present. No murmurs, rubs, or gallops. PULMONARY: Chest is clear to auscultation, no wheezing or crackles. ABDOMEN: Soft, nontender, nondistended, normoactive bowel sounds. No palpable organomegaly. MUSCULOSKELETAL: No joint swelling or deformity. EXTREMITIES: No cyanosis, clubbing, or pedal edema. NEUROLOGICAL: Gross neurological examination did not reveal any focal deficits. SKIN: No rashes. Assessment and plan Acute alcohol intoxication Hypokalemia hypomagnesemia Elevated AST chronic alcoholism Hypertension History of DVT Anxiety/depression Bowel resection with colostomy Former smoker Alcoholism GI prophylaxis: Protonix DVT prophylaxis:Heparin subcu Full code Plan Monitor patient for alcohol withdrawal Continue ativan [facility] protocol. Replace potassium magnesium Discharge home The impression and plan of care has been dictated by Amita Nelson, Nurse Practitioner as directed. Dr. Erin MD I have performed a history and physical examination and medical decision making of this patient, discussed the same with the dictator, and agree with the dictators assessment and plan as written, documented as a scribe. Based on total visit time, I have performed more than 50% of this visit. Plan - Discharge Summary Discharge Rx Participant: No New Discharge Prescriptions: No Action traZODone HCL 100 mg PO DIRECTED Thiamine [Vitamin B-1] 100 mg PO DIRECTED Pantoprazole [Protonix] 40 mg PO DIRECTED Multivitamins, Thera [Multivitamin (formulary)] 1 tab PO DIRECTED QUEtiapine [SEROquel] 50 mg PO DIRECTED Potassium Chloride ER [K-Dur 10] 10 meq PO DIRECTED Folic Acid 1 mg PO DIRECTED Ferrous Sulfate [Iron (65 MG Elemental)] 325 mg PO DIRECTED Discharge Medication List Ferrous Sulfate [Iron (65 MG Elemental)] 325 mg PO DIRECTED 07/05/24 [History] Folic Acid 1 mg PO DIRECTED 07/05/24 [History] Multivitamins, Thera [Multivitamin (formulary)] 1 tab PO DIRECTED 07/05/24 [History] Pantoprazole [Protonix] 40 mg PO DIRECTED 07/05/24 [History] Potassium Chloride ER [K-Dur 10] 10 meq PO DIRECTED 07/05/24 [History] QUEtiapine [SEROquel] 50 mg PO DIRECTED 07/05/24 [History] Thiamine [Vitamin B-1] 100 mg PO DIRECTED 07/05/24 [History] traZODone HCL 100 mg PO DIRECTED 07/05/24 [History] Follow up Appointment(s)/Referral(s): Constantine Figueroa DO [Primary Care Provider] - 1-2 days Activity/Diet/Wound Care/Special Instructions: Please notify [facility] when pt is discharged. Call #[phone] or #[phone] Discharge/Stand Alone Forms: In Substance Abuse Facilities
[2024-07-07 02:16] VITALS: TEMP 98.8
[2024-07-07 07:55] VITALS: BP 156/94; PULSE 94; RESP 20
[2024-07-07] MEDS: PANTOPRAZOLE 40 MG TABLET PO SCH (09:00)
--- NOTE | 2024-07-07 13:18 | P.DS ---
Providers Date of admission: 07/05/24 16:33 Expected date of discharge: 07/07/24 Attending physician: Georges Lawrence MD Primary care physician: Constantine [facility] Course: 58-year-old female with medical history significant for chronic alcoholism, hypertension, DVT, anxiety/depression, former smoker. Patient comes into the hospital she is intoxicated sent in by [facility]. [facility] mental health to the patient's apartment on Wednesday for a breathalyzer she did not pass was sent to the hospital for evaluation. Patient did not want to comment on how much she is drinking but admits to daily. States that [facility] did not brethalyze her on Wednesday. She was admitted to the hospital for monitoring started on ativan ciwa protocol. She is not going through active withdrawals at this time. Potassium 3.3, magnesium 1.7, AST 54, Lipase 357. Urinalysis negative. Patient has no acute complaints. She does report to frequent falling. Has had a worsening progression of vision in her left eye states she has an appt with her opthmologist coming up. She does have 3 abbe to the back of her head from a prior fall and admission which can be removed today. She is wanting to be discharged home. Acute alcohol intoxication Hypokalemia hypomagnesemia Elevated AST chronic alcoholism Hypertension History of DVT Anxiety/depression Bowel resection with colostomy Former smoker Alcoholism GI prophylaxis: Protonix DVT prophylaxis:Heparin subcu Full code Plan Monitor patient for alcohol withdrawal Continue ativan CIWA protocol. Replace potassium magnesium Discharge home Patient is stable to be discharged Plan - Discharge Summary Discharge Rx Participant: No New Discharge Prescriptions: No Action traZODone HCL 100 mg PO DIRECTED Thiamine [Vitamin B-1] 100 mg PO DIRECTED Pantoprazole [Protonix] 40 mg PO DIRECTED Multivitamins, Thera [Multivitamin (formulary)] 1 tab PO DIRECTED QUEtiapine [SEROquel] 50 mg PO DIRECTED Potassium Chloride ER [K-Dur 10] 10 meq PO DIRECTED Folic Acid 1 mg PO DIRECTED Ferrous Sulfate [Iron (65 MG Elemental)] 325 mg PO DIRECTED Discharge Medication List Ferrous Sulfate [Iron (65 MG Elemental)] 325 mg PO DIRECTED 07/05/24 [History] Folic Acid 1 mg PO DIRECTED 07/05/24 [History] Multivitamins, Thera [Multivitamin (formulary)] 1 tab PO DIRECTED 07/05/24 [History] Pantoprazole [Protonix] 40 mg PO DIRECTED 07/05/24 [History] Potassium Chloride ER [K-Dur 10] 10 meq PO DIRECTED 07/05/24 [History] QUEtiapine [SEROquel] 50 mg PO DIRECTED 07/05/24 [History] Thiamine [Vitamin B-1] 100 mg PO DIRECTED 07/05/24 [History] traZODone HCL 100 mg PO DIRECTED 07/05/24 [History] Follow up Appointment(s)/Referral(s): Constantine Figueroa DO [Primary Care Provider] - 1-2 days Activity/Diet/Wound Care/Special Instructions: Please notify [facility] when pt is discharged. Call #[phone] or #[phone] Discharge/Stand Alone Forms: Inp Substance Abuse Facilities
== END 2024-07-07 15:05 | disposition home or self-care (01) | DRG 897 ==
LOC: EC 13:52 → 4SSUR 16:33
PROVIDERS: ADMIT Internal Medicine; ATTEND Internal Medicine
PROC: HZ2ZZZZ Detoxification Services for Substance Abuse Treatment (ICD-10-PCS; principal; 2024-07-05)
DX: F10.229 Alcohol dependence with intoxication, unspecified (principal); E83.42 Hypomagnesemia; E87.6 Hypokalemia; F32.A Depression, unspecified; F41.9 Anxiety disorder, unspecified; I10 Essential (primary) hypertension; R29.6 Repeated falls; Z82.5 Family history of asthma and other chronic lower respiratory diseases; Z86.718 Personal history of other venous thrombosis and embolism; Z87.891 Personal history of nicotine dependence; Z93.3 Colostomy status; Z87.19 Personal history of other diseases of the digestive system; Z91.81 History of falling; Y90.8 Blood alcohol level of 240 mg/100 ml or more
CPT/HCPCS: 36415; 80053; 80306; 80320; 83690; 83735; 84100; 85025; 85610; 96361; 96372; 96374; 99285

== ENCOUNTER 2024-08-18 19:50 | Observation (INO) | payer MEDICARE, OTHER ==
[2024-08-18] MEDS: HYDROmorphone 0.5 MG/0.5 ML SYRINGE IVP STA (20:33)
[2024-08-18] MEDS: SODIUM CHLORIDE 0.9% 500 ML 500 ML IV STA (20:34)
--- NOTE | 2024-08-18 20:40 | ED ---
General Adult HPI - General Chief complaint: Alcohol Stated complaint: Pain Time Seen by Provider: 08/18/24 19:57 Source: patient, EMS, RN notes reviewed, old records reviewed Mode of arrival: EMS Limitations: no limitations - History of Present Illness Initial comments: 59-year-old female presenting with abdominal pain. History of pancreatitis. Patient does admit to heavy alcohol consumption today. She reports her pain is generalized but it is specifically worse in the lower abdomen. No reported fever. No vomiting. History is somewhat limited secondary to alcohol intoxication. - Related Data Home Medications Medication Instructions Recorded Confirmed Ferrous Sulfate [Iron (65 MG 325 mg PO DIRECTED 07/05/24 07/05/24 Elemental)] Folic Acid 1 mg PO DIRECTED 07/05/24 07/05/24 Multivitamins, Thera [Multivitamin 1 tab PO DIRECTED 07/05/24 07/05/24 (formulary)] Pantoprazole [Protonix] 40 mg PO DIRECTED 07/05/24 07/05/24 Potassium Chloride ER [K-Dur 10] 10 meq PO DIRECTED 07/05/24 07/05/24 QUEtiapine [SEROquel] 50 mg PO DIRECTED 07/05/24 07/05/24 Thiamine [Vitamin B-1] 100 mg PO DIRECTED 07/05/24 07/05/24 traZODone HCL 100 mg PO DIRECTED 07/05/24 07/05/24 Allergies Allergy/AdvReac Type Severity Reaction Status Date / Time bacitracin Allergy Rash/Hives Verified 07/05/24 17:09 cephalexin [From Keflex] Allergy Itching Verified 07/05/24 17:09 Review of Systems ROS Statement: Those systems with pertinent positive or pertinent negative responses have been documented in the HPI. ROS Other: All systems not noted in ROS Statement are negative. Past Medical History Past Medical History: Deep Vein Thrombosis (DVT), Hypertension Additional Past Medical History / Comment(s): concussion History of Any Multi-Drug Resistant Organisms: None Reported Past Surgical History: Bowel Resection Additional Past Surgical History / Comment(s): jaw surgery, colostomy 01/2023 Past Anesthesia/Blood Transfusion Reactions: No Reported Reaction Past Psychological History: Anxiety, Depression Smoking Status: Former smoker Past Alcohol Use History: Abuse, Daily, Heavy Past Drug Use History: None Reported - Past Family History Father Additional Family Medical History / Comment(s): Spleen CA Mother Family Medical History: COPD Additional Family Medical History / Comment(s): empysema General Exam Limitations: no limitations General appearance: alert, appears intoxicated Head exam: Present: atraumatic, normocephalic Eye exam: Present: normal appearance, PERRL ENT exam: Present: normal exam Neck exam: Present: normal inspection. Absent: tenderness, meningismus Respiratory exam: Present: normal lung sounds bilaterally. Absent: respiratory distress Cardiovascular Exam: Present: regular rate, normal rhythm GI/Abdominal exam: Present: soft, tenderness (Bilateral lower). Absent: distended Extremities exam: Present: normal inspection Neurological exam: Present: alert, CN II-XII intact. Absent: motor sensory deficit Psychiatric exam: Present: normal affect, normal mood Skin exam: Present: warm, dry, intact Course Vital Signs 08/18/24 19:58 Temperature 97.9 F Pulse Rate 105 H Respiratory 20 Rate Blood Pressure 118/83 O2 Sat by Pulse 98 Oximetry Medical Decision Making - Medical Decision Making Was pt. sent in by a medical professional or institution ([facility], [employer], urgent care, hospital, or detention...) When possible be specific @ -No Did you speak to anyone other than the patient for history (EMS, parent, family, police, friend...)? What history was obtained from this source @ -No Did you review nursing and triage notes (agree or disagree)? Why? @ -I reviewed and agree with nursing and triage notes Were old charts reviewed (outside hosp., previous admission, EMS record, old EKG, old radiological studies, urgent care reports/EKG's, detention records)? Report findings @ -No old charts were reviewed Differential Abdominal Pain Women: Appendicitis, Cholecystitis, diverticulosis, ischemic bowel, pancreatitis, hepatitis, UTI, gastroenteritis, AAA, incarcerated hernia, bowel obstruction, constipation, inflammatory bowel, hepatitis, peptic ulcer disease, splenic infarction, perforated viscus, vulvitis, ovarian torsion, PID, kidney stone, placenta abruption, this is not meant to be an all-inclusive list EKG interpreted by me (3pts min.). @ -As above X-rays interpreted by me (1pt min.). @ -None done CT interpreted by me (1pt min.). @ -None done U/S interpreted by me (1pt. min.). @ -None done What testing was considered but not performed or refused? (CT, X-rays, U/S, labs)? Why? @ -None What meds were considered but not given or refused? Why? @ -None Did you discuss the management of the patient with other professionals (professionals i.e. , PA, [employer]ER [employer]ACHINE, lab, RT, psych nurse, health and social care teacher, refrigeration plant cork insulator, teacher, building drafting officer, residential case manager)? Give summary @ -Case discussed with Bismark lopez [facility] Was smoking cessation discussed for >3mins.? @ -No Was critical care preformed (if so, how long)? @ -No Were there social determinants of health that impacted care today? How? (Homelessness, low income, unemployed, alcoholism, drug addiction, transportation, low edu. Level, literacy, decrease access to med. care, penitentiary, rehab)? @ -No Was there de-escalation of care discussed even if they declined (Discuss DNR or withdrawal of care, Hospice)? DNR status @ -No What co-morbidities impacted this encounter? (DM, HTN, Smoking, COPD, CAD, Cancer, CVA, ARF, Chemo, Hep., AIDS, mental health diagnosis, sleep apnea, morbid obesity)? @Alcohol abuse Was patient admitted / discharged? Hospital course, mention meds given and route, prescriptions, significant lab abnormalities, going to OR and other pertinent info. @ -59-year-old female presenting with alcohol intoxication and lower abdominal pain. Patient is hemodynamically stable. She does appear intoxicated. Alcohol is 395. She has normal white blood cell count, stable hemoglobin. Normal electrolytes, normal lipase. Patient will be admitted for alcohol intoxication and reevaluation of lower abdominal pain when sober. Undiagnosed new problem with uncertain prognosis? @ -No Drug Therapy requiring intensive monitoring for toxicity (Heparin, Nitro, Insulin, Cardizem)? @ -No Were any procedures done? @ -No Diagnosis/symptom? @ -Alcohol intoxication, abdominal pain Acute, or Chronic, or Acute on Chronic? @Acute chronic Uncomplicated (without systemic symptoms) or Complicated (systemic symptoms)? @ -Default Side effects of treatment? @ -No Exacerbation, Progression, or Severe Exacerbation? @ -No Poses a threat to life or bodily function? How? (Chest pain, [place], [place], pneumonia, PE, COPD, DKA, ARF, appy, cholecystitis, CVA, Diverticulitis, Homicidal, Suicidal, threat to staff... and all critical care pts) @ -Alcohol abuse - Lab Data Result diagrams: 08/18/24 20:34 08/18/24 20:34 Lab Results 08/18/24 08/18/24 08/18/24 Range/Units 20:34 20:34 20:34 WBC 5.4 (3.8-10.6) k/uL RBC 4.25 (3.80-5.40) m/uL Hgb 12.0 (11.4-16.0) gm/dL Hct 38.2 (34.0-46.0) % MCV 89.8 (80.0-100.0) fL MCH 28.3 (25.0-35.0) pg MCHC 31.5 (31.0-37.0) g/dL RDW 15.2 (11.5-15.5) % Plt Count 211 (150-450) k/uL MPV 6.9 Neutrophils % 63 % Lymphocytes % 28 % Monocytes % 5 % Eosinophils % 1 % Basophils % 0 % Neutrophils # 3.4 (1.3-7.7) k/uL Lymphocytes # 1.5 (1.0-4.8) k/uL Monocytes # 0.2 (0-1.0) k/uL Eosinophils # 0.1 (0-0.7) k/uL Basophils # 0.0 (0-0.2) k/uL Hypochromasia Slight PT 10.5 (10.0-12.5) sec INR 0.9 (<1.2) APTT 23.2 (22.0-30.0) sec Sodium 136 L (137-145) mmol/L Potassium 4.3 (3.5-5.1) mmol/L Chloride 101 (98-107) mmol/L Carbon Dioxide 16 L (22-30) mmol/L Anion Gap 19 mmol/L BUN 6 L (7-17) mg/dL Creatinine 0.60 (0.52-1.04) mg/dL Est GFR (CKD-EPI)AfAm >90 (>60 ml/min/1.73 sqM) Est GFR (CKD-EPI)NonAf >90 (>60 ml/min/1.73 sqM) Glucose 91 (74-99) mg/dL Calcium 8.6 (8.4-10.2) mg/dL Total Bilirubin 0.6 (0.2-1.3) mg/dL AST 36 (14-36) U/L ALT 16 (4-34) U/L Alkaline Phosphatase 81 (38-126) U/L Total Protein 6.5 (6.3-8.2) g/dL Albumin 4.0 (3.5-5.0) g/dL Lipase 128 (23-300) U/L Serum Alcohol 395 H* mg/dL Disposition Clinical Impression: Abdominal pain, Alcohol use disorder Disposition: ADMITTED IP TO THIS HOSP Condition: Stable Is patient prescribed a controlled substance at d/c from ED?: No Referrals: Constantine Figueroa DO [Primary Care Provider] - 1-2 days Time of Disposition: 21:34
[2024-08-18 20:45] LABS: Basophils % (A) 0 %; Eosinophils # (A) 0.1 k/uL (0-0.7); Eosinophils % (A) 1 %; HCT 38.2 % (34.0-46.0); Hypochromasia Slight; Lymphocytes # (A) 1.5 k/uL (1.0-4.8); Lymphocytes % (A) 28 %; MCH 28.3 pg (25.0-35.0); MCHC 31.5 g/dL (31.0-37.0); MCV 89.8 fL (80.0-100.0); Mean Platelet Volume 6.9; Monocytes # (A) 0.2 k/uL (0-1.0); Monocytes % (A) 5 %; Neutrophils # (A) 3.4 k/uL (1.3-7.7); Neutrophils % (A) 63 %; Platelet Count 211 k/uL (150-450); RBC 4.25 m/uL (3.80-5.40); RDW 15.2 % (11.5-15.5); WBC 5.4 k/uL (3.8-10.6)
[2024-08-18 20:57] LABS: INR 0.9 (<1.2); Partial Thromboplastin Time 23.2 sec (22.0-30.0); Prothrombin Time 10.5 sec (10.0-12.5)
[2024-08-18 21:01] LABS: ALT 16 U/L (4-34); AST 36 U/L (14-36); African American GFR (CKD) >90 (>60 ml/min/1.73 sqM); Alkaline Phosphatase 81 U/L (38-126); Anion Gap 19 mmol/L; Blood Urea Nitrogen 6 mg/dL (7-17); Calcium 8.6 mg/dL (8.4-10.2); Carbon Dioxide 16 mmol/L (22-30); Chloride 101 mmol/L (98-107); Glucose 91 mg/dL (74-99); Lipase 128 U/L (23-300); Non-African American GFR(CKD) >90 (>60 ml/min/1.73 sqM); Potassium 4.3 mmol/L (3.5-5.1); Sodium 136 mmol/L (137-145); Total Bilirubin 0.6 mg/dL (0.2-1.3); Total Protein 6.5 g/dL (6.3-8.2)
[2024-08-18 21:16] LABS: Alcohol 395 mg/dL
[2024-08-18] MEDS ORDERED: HYDROmorphone 0.5 MG/0.5 ML SYRINGE IVP PRN (21:31)
[2024-08-18] MEDS ORDERED: NALOXONE 0.4 MG/ML 1 ML VIAL IV PRN (21:31)
[2024-08-18] MEDS ORDERED: LORazepam 2 MG/ML INJ IV PRN ×3 (21:34)
[2024-08-18] MEDS: SODIUM CHLORIDE 0.9% 1,000 ML IV SCH (21:43)
[2024-08-18 23:26] LABS: Appearance,Urine Clear (Clear); Bilirubin,Urine Negative (Negative); Blood,Urine Negative (Negative); Color,Urine Colorless; Glucose,Urine (UA) Negative (Negative); Ketones,Urine 2+ (Negative); Leukocyte Esterase,Urine Negative (Negative); Nitrite,Urine Negative (Negative); PH, Urine 5.5 (5.0-8.0); Protein,Urine Negative (Negative); Specific Gravity,Urine 1.006 (1.001-1.035); Urobilinogen,Urine <2.0 mg/dL (<2.0)
[2024-08-19] MEDS: ONDANSETRON 4 MG/2 ML VIAL IVP PRN (08:27)
[2024-08-19] MEDS: PANTOPRAZOLE 40 MG/10 ML VIAL IVP SCH (13:01)
--- NOTE | 2024-08-19 15:39 | P.HPIM ---
History of Present Illness H&P Date: 08/19/24 History of present illness; Patient is 59-year-old female with hypertension, partial bowel resection with ileostomy bag, history of pancreatitis, history of DVT, alcohol use disorder presenting with abdominal pain. This morning she cannot recall having abdominal pain, and is somewhat confused as to what brought her in. She does remember falling over her cat. She reports absence of abdominal pain, loss of consciousness or head trauma. She reports a 20-year history of drinking including daily 5-10 beers with occasional vodka. Her last drink was last night, unsure of time. She states that she would like to quit drinking and was recently being treated at [facility]. Also this morning she does have some nausea and vomiting after attempting to eat. Patient reports absence of fever, chills, weight loss, chest pain, palpitations, diaphoresis, dyspnea, cough, constipation, diarrhea, abdominal pain, weakness, myalgia, dizziness, headache, and dysuria. Labs WBC 5.4, hemoglobin 12.0, PT 10.5, INR 0.9, sodium 136, potassium 4.3, bicarb 16, gap 19, BUN 6, creatinine 0.6, glucose 91, LFTs are WNL, lipase 128, urine significant for ketones 2+, alcohol 395 Spoke with the ER physician, patient admission was accepted by internal medicine service for treatment. REVIEW OF SYSTEMS: Pertinent positives and negatives noted in HPI. PHYSICAL EXAMINATION: Vitals reviewed GENERAL: Mild tremor. No acute distress. Well developed, well nourished. HEENT: Pupils are round and equally reacting to light. EOMI. No scleral icterus. Normocephalic, atraumatic. No pharyngeal erythema. No thyromegaly. CARDIOVASCULAR: S1 and S2 present. No murmurs, rubs, or gallops. PULMONARY: Chest is clear to auscultation, no wheezing, rhonchi, or crackles. ABDOMEN: Ileostomy bag. Soft, nontender, nondistended, normoactive bowel sounds. No palpable organomegaly. MUSCULOSKELETAL: No apparent joint swelling and deformities. EXTREMITIES: No apparent cyanosis, clubbing, or pedal edema. NEUROLOGICAL: The patient is alert and oriented x3, Gross neurological examination did not reveal any focal deficits. 5/5 Strength bilateral UE and LE SKIN: No apparent rashes. Assessment and plan Patient is 59-year-old female with hypertension, partial bowel resection with ileostomy bag, history of pancreatitis, history of DVT, alcohol use disorder presenting with abdominal pain. #Alcohol dependence with withdrawal - Alcohol 395, last drink was night of 08/18/2024 [facility] protocol - Librium 25mg BID Give daily thiamine, folic acid - give IV NS 75 cc/h monitor daily electrolytes -cardiac monitoring -forensic social worker consult #Nausea vomiting Zofran 4 mg IVP every 8 hour Protonix 40 mg IVP twice daily IV fluids as above #Abdominal pain, resolved Lipase 128, WNL F: IV Normal saline 75 mL/hr E: Replete as needed N: Regular diet DVT ppx: Subq Lovenox 40 meq daily Code status: Full code Anticipated discharge place: Home Anticipated discharge time: 1 to 2 days Dictation was produced using [employer] dictation software. Please excuse any grammatical, word or spelling errors. Past Medical History Past Medical History: Deep Vein Thrombosis (DVT), Hypertension Additional Past Medical History / Comment(s): concussion History of Any Multi-Drug Resistant Organisms: None Reported Past Surgical History: Bowel Resection Additional Past Surgical History / Comment(s): jaw surgery, colostomy 01/2023 Past Anesthesia/Blood Transfusion Reactions: No Reported Reaction Past Psychological History: Anxiety, Depression Smoking Status: Former smoker Past Alcohol Use History: Abuse, Daily, Heavy Additional Past Alcohol Use History / Comment(s): states she drinks 6-10 beers daily, vodka on occasion Past Drug Use History: None Reported - Past Family History Father Additional Family Medical History / Comment(s): Spleen CA Mother Family Medical History: COPD Additional Family Medical History / Comment(s): empysema Medications and Allergies Home Medications Medication Instructions Recorded Confirmed Type traZODone HCL 100 mg PO HS 07/05/24 08/19/24 History Allergies Allergy/AdvReac Type Severity Reaction Status Date / Time bacitracin Allergy Rash/Hives Verified 08/19/24 11:07 cephalexin [From Keflex] Allergy Itching Verified 08/19/24 11:07 Physical Exam Vitals: Vital Signs Temp Pulse Pulse Resp BP BP Pulse Ox 08/19/24 14:33 98.4 F 84 16 150/83 94 L 08/19/24 07:00 98.3 F 110 H 16 139/87 93 L 08/19/24 01:21 98.4 F 106 H 18 115/72 93 L 08/18/24 22:15 98.4 F 105 H 18 119/78 96 08/18/24 22:03 105 H 20 125/76 08/18/24 19:58 97.9 F 105 H 20 118/83 98 Intake and Output 08/19/24 08/19/24 08/19/24 06:59 14:59 22:59 Other: # Voids 1 1 # Bowel Movements 1 Results CBC & Chem 7: 08/18/24 20:34 08/18/24 20:34 Labs: Abnormal Lab Results - Last 24 Hours (Table) 08/18/24 08/18/24 Range/Units 20:34 22:48 Sodium 136 L (137-145) mmol/L Carbon Dioxide 16 L (22-30) mmol/L BUN 6 L (7-17) mg/dL Urine Ketones 2+ H (Negative) Serum Alcohol 395 H* mg/dL
[2024-08-19] MEDS: FOLIC ACID 1 MG TAB PO SCH (16:31)
[2024-08-19] MEDS: THIAMINE 100 MG TAB PO SCH (16:31)
[2024-08-19] MEDS: chlordiazePOXIDE 25 MG CAP PO SCH (19:57)
[2024-08-20 07:28] VITALS: BP 145/94; PULSE 91; RESP 16; TEMP 99.1
[2024-08-20 07:50] LABS: HCT 34.9 % (34.0-46.0); HGB 11.2 gm/dL (11.4-16.0); MCH 28.4 pg (25.0-35.0); MCV 88.9 fL (80.0-100.0); Mean Platelet Volume 7.8; Platelet Count 171 k/uL (150-450); RBC 3.93 m/uL (3.80-5.40); RDW 15.2 % (11.5-15.5); WBC 4.1 k/uL (3.8-10.6)
[2024-08-20 08:13] LABS: ALT 16 U/L (4-34); AST 33 U/L (14-36); African American GFR (CKD) >90 (>60 ml/min/1.73 sqM); Albumin 3.7 g/dL (3.5-5.0); Albumin/Globulin Ratio 1.5; Alkaline Phosphatase 68 U/L (38-126); Anion Gap 10 mmol/L; Blood Urea Nitrogen 6 mg/dL (7-17); Calcium 9.1 mg/dL (8.4-10.2); Carbon Dioxide 26 mmol/L (22-30); Chloride 99 mmol/L (98-107); Globulin 2.4 g/dL; Glucose 96 mg/dL (74-99); Non-African American GFR(CKD) >90 (>60 ml/min/1.73 sqM); Potassium 3.9 mmol/L (3.5-5.1); Sodium 135 mmol/L (137-145); Total Protein 6.1 g/dL (6.3-8.2)
[2024-08-20] MEDS: ENOXAPARIN 40 MG/0.4 ML SYRINGE SQ SCH (08:44)
== END 2024-08-20 14:28 | disposition home or self-care (01) ==
LOC: EC 19:50 → 6NMEDSUR 21:31
PROVIDERS: ADMIT Hospitalist; ATTEND Hospitalist
DX: F10.239 Alcohol dependence with withdrawal, unspecified (principal); R11.2 Nausea with vomiting, unspecified; R10.9 Unspecified abdominal pain; I10 Essential (primary) hypertension; F32.A Depression, unspecified; F41.9 Anxiety disorder, unspecified; Y90.8 Blood alcohol level of 240 mg/100 ml or more; Z86.718 Personal history of other venous thrombosis and embolism; Z87.891 Personal history of nicotine dependence; Z93.3 Colostomy status; Z79.899 Other long term (current) drug therapy; Z88.1 Allergy status to other antibiotic agents
CPT/HCPCS: 96376; 96372; 96374 ×2; 96375; 99284; 36415; 80053 ×2; 83690; 85025; 85027; 85610; 85730; 81003; G0378 ×3; G0480; J2405; J1650; J1171; J2470; 80320

== ENCOUNTER 2024-08-28 02:17 | Observation (INO) | payer MEDICARE, OTHER ==
[2024-08-28 02:44] LABS: Glucose,Whole Blood 105 mg/dL (70-110)
[2024-08-28 02:47] LABS: Basophils % (A) 0 %; Eosinophils # (A) 0.1 k/uL (0-0.7); Eosinophils % (A) 3 %; HCT 34.7 % (34.0-46.0); HGB 11.2 gm/dL (11.4-16.0); Hypochromasia Slight; Lymphocytes # (A) 1.8 k/uL (1.0-4.8); Lymphocytes % (A) 42 %; MCHC 32.3 g/dL (31.0-37.0); MCV 89.7 fL (80.0-100.0); Mean Platelet Volume 7.8; Monocytes # (A) 0.4 k/uL (0-1.0); Monocytes % (A) 8 %; Neutrophils # (A) 1.9 k/uL (1.3-7.7); Neutrophils % (A) 44 %; Platelet Count 130 k/uL (150-450); RBC 3.87 m/uL (3.80-5.40); RDW 15.9 % (11.5-15.5); WBC 4.2 k/uL (3.8-10.6)
[2024-08-28] MEDS: SODIUM CHLORIDE 0.9% 1,000 ML IV STA (02:54)
[2024-08-28] MEDS: THIAMINE 100 MG/ML 2 ML VIAL IM STA (02:54)
--- NOTE | 2024-08-28 02:56 | ED ---
General Adult HPI - General Stated complaint: fall Time Seen by Provider: 08/28/24 02:26 - History of Present Illness Initial comments: Patient is a 59-year-old female presenting today for trip and fall at home and alcohol intoxication. History limited by patient's intoxication. Largely provided by EMS. Patient was reportedly at home this evening when she tripped over her cat and fell onto her linoleum floor. Initially called EMS for lift assist and denied head injury or LOC to EMS however she was visibly intoxicated and is on Xarelto for history of DVT so transferred to the emergency department. Patient was noted by EMS to have multiple empty cans of beer on the floor in her home. The patient currently endorses headache, unsure of LOC and thinks she may have hit her head on the linoleum floor. She denies neck pain, chest pain, abdominal pain or additional injuries at this time. Knows the year is 2023 and is able to provide a brief history unsure of the exact date. - Related Data Home Medications Medication Instructions Recorded Confirmed traZODone HCL 100 mg PO HS PRN 07/05/24 08/28/24 Previous Rx's Medication Instructions Recorded Famotidine [Pepcid] 20 mg PO BID #60 tab 08/29/24 Folic Acid 1 mg PO DAILY #30 tab 08/29/24 Naltrexone HCl [Revia] 50 mg PO DAILY #30 tablet 08/29/24 Thiamine [Vitamin B-1] 100 mg PO DAILY #30 tab 08/29/24 Allergies Allergy/AdvReac Type Severity Reaction Status Date / Time bacitracin Allergy Rash/Hives Verified 08/28/24 08:28 cephalexin [From Keflex] Allergy Itching Verified 08/28/24 08:28 Review of Systems ROS Statement: Those systems with pertinent positive or pertinent negative responses have been documented in the HPI. ROS Other: All systems not noted in ROS Statement are negative. Limitations: ROS unobtainable due to patients medical condition Past Medical History Past Medical History: Deep Vein Thrombosis (DVT), Hypertension Additional Past Medical History / Comment(s): concussion History of Any Multi-Drug Resistant Organisms: None Reported Past Surgical History: Bowel Resection Additional Past Surgical History / Comment(s): jaw surgery, colostomy 01/2023 Past Anesthesia/Blood Transfusion Reactions: No Reported Reaction Past Psychological History: Anxiety, Depression Smoking Status: Former smoker Past Alcohol Use History: Abuse, Daily, Heavy Additional Past Alcohol Use History / Comment(s): states she drinks 6-10 beers daily, vodka on occasion Past Drug Use History: None Reported - Past Family History Father Additional Family Medical History / Comment(s): Spleen CA Mother Family Medical History: COPD Additional Family Medical History / Comment(s): empysema General Exam - General Exam Comments Initial Comments: PE: CONSTITUTIONAL: Chronically ill-appearing, no acute distress, disheveled, soiled SKIN: Warm, dry, no jaundice, hives or petechiae. Erythematous rash underneath the chest bilaterally EYES: Pupils are equally round, extraocular movements intact without nystagmus, clear conjunctiva, non-icteric sclera HENT: Normocephalic, atraumatic, moist mucus membranes, oropharynx clear without exudates NECK: , Full range of motion, collar placed on arrival, no midline spinal tende rness to palpation PULMONARY: Clear to auscultation without wheezes, rhonchi, or rales, normal excursion, no accessory muscle use and no stridor CARDIOVASCULAR: Regular rate, rhythm, normal S1 and S2. No appreciated murmurs, rubs or gallops. Strong radial pulses with intact distal perfusion. No lower extremity edema GASTROINTESTINAL: Soft, active bowel sounds throughout, mild tenderness palpation around ostomy, ostomy is mildly erythematous, soft yellow-brown stool around site, mildly distended around ostomy site no palpable masses, no rebound; guarding with an ostomy site is palpated, no hepatosplenomegaly GENITOURINARY: MUSCULOSKELETAL: Extremities have no gross deformity, no edema, redness, or swelling. NEUROLOGIC:_a/o x 2, GCS 14, clear speech, mildly confused mentation moves all extremities x 4 without motor or sensory deficit PSYCHIATRIC:_normal mood and affect, thought process is somewhat confused, intermittently tries to climb off bed however is redirectable Course Vital Signs 08/28/24 08/28/24 08/28/24 02:28 04:00 05:00 Temperature 98.7 F Pulse Rate 96 93 83 Respiratory 16 24 17 Rate Blood Pressure 121/84 103/68 117/89 O2 Sat by Pulse 97 95 94 L Oximetry 08/28/24 08/28/24 08/28/24 06:00 09:20 10:00 Temperature Pulse Rate 84 93 84 Respiratory 16 18 18 Rate Blood Pressure 103/73 108/73 117/77 O2 Sat by Pulse 95 97 98 Oximetry 08/28/24 08/28/24 08/28/24 11:00 12:00 13:00 Temperature 97.6 F Pulse Rate 83 94 91 Respiratory 18 18 18 Rate Blood Pressure 104/83 122/76 120/85 O2 Sat by Pulse 97 97 96 Oximetry 08/28/24 08/28/24 08/28/24 14:00 16:00 18:00 Temperature 98.1 F Pulse Rate 98 94 109 H Respiratory 18 18 18 Rate Blood Pressure 113/96 129/96 O2 Sat by Pulse 98 94 L 95 Oximetry 08/28/24 18:40 Temperature 97.9 F Pulse Rate 104 H Respiratory 18 Rate Blood Pressure 144/76 O2 Sat by Pulse 98 Oximetry EKG Findings - EKG Comments: EKG Findings:: Sinus rhythm, rate 87 bpm, MN interval 153 ms, QRS duration 113 ms, QT/QTc 392/437 ms, normal axis, no ST elevations or depressions, no arrhythmia Medical Decision Making - Medical Decision Making Was pt. sent in by a medical professional or institution (, PA, RADIOLOGY ORDERLY, urgent care, hospital, or [facility]...) When possible be specific @ -No Did you speak to anyone other than the patient for history (EMS, parent, family, police, friend...)? What history was obtained from this source @I spoke with EMS personnel who assisted in providing history stating that the patient called them for a lift assist after she had fallen at home, they found the patient at home surrounded by cans of beer on the floor, to them denied loss of consciousness he had no signs of head trauma placed a soft c-collar in the patient and transported her to the hospital. Blood glucose 122 on their assessment. Did you review nursing and triage notes (agree or disagree)? Why? @ -I reviewed and agree with nursing and triage notes Were old charts reviewed (outside hosp., previous admission, EMS record, old EKG, old radiological studies, urgent care reports/EKG's, [facility] records)? Report findings @ -Medical records reviewed On chart review it appears patient was recently mid to the hospital on 08/18/2024 and discharged on 08/20/2024 after presenting for abdominal pain and being treated for tripping of her cat. Per discharge summary patient has a 20-year history of drinking 5-10 beers daily with occasional vodka. Alcohol withdrawal. Of note at time of discharge from recent admit, patient was not discharged on xarelto. Differential Diagnosis (chest pain, altered mental status, abdominal pain women, abdominal pain men, vaginal bleeding, weakness, fever, dyspnea, syncope, headache, dizziness, GI bleed, back pain, seizure, CVA, palpatations, mental health, musculoskeletal)? Differenital Diagnosis is broad and top considerations include traumatic intracranial injury, alcohol intoxication, toxic metabolic encephalopathy, Wernicke's encephalopathy, concussion, overdose, hypoglycemia, infection, this is not an all inclusive list. EKG interpreted by me (3pts min.). @ -As above X-rays interpreted by me (1pt min.). @ -None done CT interpreted by me (1pt min.). @ CT brain shows no hemorrhage, CT cspine shows no fracture or malalignment, CT chest abdomen pelvis shows no pneumothorax, no evidence of free air or free fluid to indicate perforation, no bowel obstruction U/S interpreted by me (1pt. min.). @ -None done What testing was considered but not performed or refused? (CT, X-rays, U/S, labs)? Why? @ -None What meds were considered but not given or refused? Why? @ -None Did you discuss the management of the patient with other professionals (professionals i.e. , PA, RADIOLOGY ORDERLY, lab, RT, psych nurse, social media strategist, expense analyst, teacher, chief commercial officer, case folder)? Give summary @ -No Was smoking cessation discussed for >3mins.? @ -No Was critical care preformed (if so, how long)? @ yes 35 minutes Were there social determinants of health that impacted care today? How? (Homelessness, low income, unemployed, alcoholism, drug addiction, transportation, low edu. Level, literacy, decrease access to med. care, intermediate, rehab)? @ -No Was there de-escalation of care discussed even if they declined (Discuss DNR or withdrawal of care, Hospice)? @ -No What co-morbidities impacted this encounter? (DM, HTN, Smoking, COPD, CAD, Cancer, CVA, ARF, Chemo, Hep., AIDS, mental health diagnosis, sleep apnea, morbid obesity)? @Alcoholism Was patient admitted / discharged? Hospital course, mention meds given and route, prescriptions, significant lab abnormalities, going to OR and other pertinent info. @Admission- Patient is a 59-year-old female presenting via EMS after trip and fall at home, alcohol intoxication, possible head injury on xarelto. I did consider activating level 2 trauma, however patient is <65 years of age, GCS on arrival 14, no obvious signs of head trauma on assessment, no other traumatic injuries identified on initial assessment. Code coag was called given patient's history of DVT on Xarelto. Patient seen and assessed on arrival, she is awake and alert, though mildly confused, knows years is 2023, able to states that she dripped over her cat on her linoleum floor, complains of [place], wo focal motor deficits. No signs head trauma. C collar placed on arrival 2/2 fall and alcohol intoxication. Pt denies neck pain. Will obtain CT brain and C-spine due to fall on Xarelto and mild confusion though I suspect this is secondary to altered alcohol intoxication. Given patient is intoxicated unable to provide a complete history, has abdominal TTP on exam, we will also obtain CT chest/A/P to assess for evidence of blunt injury from patient's fall. Comprehensive labs, thiamine,folic acid ordered. Ativan ordered as patient intermittently trying to climb off bed. POC glucose 102. Imaging reviewed. Lactic 3.2, suspect 2/2 alcohol and dehydration, blood alcohol 406. Otherwise grossly within normal limits. Abnormal values not concerning for acute pathology related to presenting complaint. Patient will be admitted for alcohol intoxication. On reassessment patient increasingly alert, updated her to plan for admission. Case dscussed with Dr. Persaud who kindly accepted patient for admission. Undiagnosed new problem with uncertain prognosis? @ -No Drug Therapy requiring intensive monitoring for toxicity (Heparin, Nitro, Insulin, Cardizem)? @ -No Were any procedures done? @ -No Diagnosis/symptom? @ Alcohol intoxication, fall Acute, or Chronic, or Acute on Chronic? @acute Uncomplicated (without systemic symptoms) or Complicated (systemic symptoms)? complicated Side effects of treatment? @ -No Exacerbation, Progression, or Severe Exacerbation? @ -No Poses a threat to life or bodily function? How? (Chest pain, USA, SD, pneumonia, PE, COPD, DKA, ARF, appy, cholecystitis, CVA, Diverticulitis, Homicidal, Suicidal, threat to staff... and all critical care pts) @ -yes potentially, if fall had resulted in serious injury - Lab Data Result diagrams: 08/28/24 02:35 08/28/24 02:35 Lab Results 08/28/24 08/28/24 08/28/24 Range/Units 02:32 02:35 02:35 WBC 4.2 (3.8-10.6) k/uL RBC 3.87 (3.80-5.40) m/uL Hgb 11.2 L (11.4-16.0) gm/dL Hct 34.7 (34.0-46.0) % MCV 89.7 (80.0-100.0) fL MCH 29.0 (25.0-35.0) pg MCHC 32.3 (31.0-37.0) g/dL RDW 15.9 H (11.5-15.5) % Plt Count 130 L (150-450) k/uL MPV 7.8 Neutrophils % 44 % Lymphocytes % 42 % Monocytes % 8 % Eosinophils % 3 % Basophils % 0 % Neutrophils # 1.9 (1.3-7.7) k/uL Lymphocytes # 1.8 (1.0-4.8) k/uL Monocytes # 0.4 (0-1.0) k/uL Eosinophils # 0.1 (0-0.7) k/uL Basophils # 0.0 (0-0.2) k/uL Hypochromasia Slight PT 10.8 (10.0-12.5) sec INR 1.0 (<1.2) APTT 19.9 L (22.0-30.0) sec Sodium (137-145) mmol/L Potassium (3.5-5.1) mmol/L Chloride (98-107) mmol/L Carbon Dioxide (22-30) mmol/L Anion Gap mmol/L BUN (7-17) mg/dL Creatinine (0.52-1.04) mg/dL Est GFR (CKD-EPI)AfAm (>60 ml/min/1.73 sqM) Est GFR (CKD-EPI)NonAf (>60 ml/min/1.73 sqM) Glucose (74-99) mg/dL POC Glucose (mg/dL) 105 (70-110) mg/dL POC Glu Machine [employer]ak Tenderizer ID Melinda Collins Lactic Ac Sepsis Rflx Plasma Lactic Acid Antoine (0.7-2.0) mmol/L Calcium (8.4-10.2) mg/dL Phosphorus (2.5-4.5) mg/dL Magnesium (1.6-2.3) mg/dL Total Bilirubin (0.2-1.3) mg/dL AST (14-36) U/L ALT (4-34) U/L Alkaline Phosphatase (38-126) U/L Ammonia (<30) umol/L Creatine Kinase (30-135) U/L Troponin I (0.000-0.034) ng/mL Total Protein (6.3-8.2) g/dL Albumin (3.5-5.0) g/dL Lipase (23-300) U/L Serum Alcohol mg/dL 08/28/24 08/28/24 08/28/24 Range/Units 02:35 02:35 02:35 WBC (3.8-10.6) k/uL RBC (3.80-5.40) m/uL Hgb (11.4-16.0) gm/dL Hct (34.0-46.0) % MCV (80.0-100.0) fL MCH (25.0-35.0) pg MCHC (31.0-37.0) g/dL RDW (11.5-15.5) % Plt Count (150-450) k/uL MPV Neutrophils % % Lymphocytes % % Monocytes % % Eosinophils % % Basophils % % Neutrophils # (1.3-7.7) k/uL Lymphocytes # (1.0-4.8) k/uL Monocytes # (0-1.0) k/uL Eosinophils # (0-0.7) k/uL Basophils # (0-0.2) k/uL Hypochromasia PT (10.0-12.5) sec INR (<1.2) APTT (22.0-30.0) sec Sodium 143 (137-145) mmol/L Potassium 3.9 (3.5-5.1) mmol/L Chloride 108 H (98-107) mmol/L Carbon Dioxide 26 (22-30) mmol/L Anion Gap 9 mmol/L BUN 7 (7-17) mg/dL Creatinine 0.70 (0.52-1.04) mg/dL Est GFR (CKD-EPI)AfAm >90 (>60 ml/min/1.73 sqM) Est GFR (CKD-EPI)NonAf >90 (>60 ml/min/1.73 sqM) Glucose 102 H (74-99) mg/dL POC Glucose (mg/dL) (70-110) mg/dL POC Glu Machine [employer] T[employer]izer ID Lactic Ac Sepsis Rflx Plasma Lactic Acid Antoine 3.2 H* (0.7-2.0) mmol/L Calcium 8.6 (8.4-10.2) mg/dL Phosphorus 4.5 (2.5-4.5) mg/dL Magnesium 1.7 (1.6-2.3) mg/dL Total Bilirubin 0.4 (0.2-1.3) mg/dL AST 32 (14-36) U/L ALT 16 (4-34) U/L Alkaline Phosphatase 64 (38-126) U/L Ammonia <9 (<30) umol/L Creatine Kinase 153 H (30-135) U/L Troponin I <0.012 (0.000-0.034) ng/mL Total Protein 6.2 L (6.3-8.2) g/dL Albumin 3.8 (3.5-5.0) g/dL Lipase 227 (23-300) U/L Serum Alcohol 406 H* mg/dL 08/28/ Range/Units 03:17 WBC (3.8-10.6) k/uL RBC (3.80-5.40) m/uL Hgb (11.4-16.0) gm/dL Hct (34.0-46.0) % MCV (80.0-100.0) fL MCH (25.0-35.0) pg MCHC (31.0-37.0) g/dL RDW (11.5-15.5) % Plt Count (150-450) k/uL MPV Neutrophils % % Lymphocytes % % Monocytes % % Eosinophils % % Basophils % % Neutrophils # (1.3-7.7) k/uL Lymphocytes # (1.0-4.8) k/uL Monocytes # (0-1.0) k/uL Eosinophils # (0-0.7) k/uL Basophils # (0-0.2) k/uL Hypochromasia PT (10.0-12.5) sec INR (<1.2) APTT (22.0-30.0) sec Sodium (137-145) mmol/L Potassium (3.5-5.1) mmol/L Chloride (98-107) mmol/L Carbon Dioxide (22-30) mmol/L Anion Gap mmol/L BUN (7-17) mg/dL Creatinine (0.52-1.04) mg/dL Est GFR (CKD-EPI)AfAm (>60 ml/min/1.73 sqM) Est GFR (CKD-EPI)NonAf (>60 ml/min/1.73 sqM) Glucose (74-99) mg/dL POC Glucose (mg/dL) (70-110) mg/dL POC Glu Machine Steak Tenderizer ID Lactic Ac Sepsis Rflx Y Plasma Lactic Acid Antoine (0.7-2.0) mmol/L Calcium (8.4-10.2) mg/dL Phosphorus (2.5-4.5) mg/dL Magnesium (1.6-2.3) mg/dL Total Bilirubin (0.2-1.3) mg/dL AST (14-36) U/L ALT (4-34) U/L Alkaline Phosphatase (38-126) U/L Ammonia (<30) umol/L Creatine Kinase (30-135) U/L Troponin I (0.000-0.034) ng/mL Total Protein (6.3-8.2) g/dL Albumin (3.5-5.0) g/dL Lipase (23-300) U/L Serum Alcohol mg/dL Disposition Clinical Impression: Alcohol intoxication, Fall Disposition: ADMITTED IP TO THIS [facility] Condition: Stable
[2024-08-28] MEDS: LORazepam 2 MG/ML INJ IV STA (02:57)
[2024-08-28 03:02] LABS: ALT 16 U/L (4-34); AST 32 U/L (14-36); African American GFR (CKD) >90 (>60 ml/min/1.73 sqM); Albumin 3.8 g/dL (3.5-5.0); Alkaline Phosphatase 64 U/L (38-126); Anion Gap 9 mmol/L; Blood Urea Nitrogen 7 mg/dL (7-17); Calcium 8.6 mg/dL (8.4-10.2); Carbon Dioxide 26 mmol/L (22-30); Chloride 108 mmol/L (98-107); Creatine Kinase 153 U/L (30-135); Glucose 102 mg/dL (74-99); Lipase 227 U/L (23-300); Magnesium 1.7 mg/dL (1.6-2.3); Non-African American GFR(CKD) >90 (>60 ml/min/1.73 sqM); Phosphorus 4.5 mg/dL (2.5-4.5); Potassium 3.9 mmol/L (3.5-5.1); Sodium 143 mmol/L (137-145); Total Bilirubin 0.4 mg/dL (0.2-1.3); Total Protein 6.2 g/dL (6.3-8.2)
[2024-08-28 03:07] LABS: Prothrombin Time 10.8 sec (10.0-12.5)
--- NOTE | 2024-08-28 03:08 | CT ---
EXAMINATION TYPE: CT brain cspine wo con DATE OF EXAM: 08/28/2024 COMPARISON: Prior trauma CT June 13, 2024 HISTORY: fall, LLQ abdominal pain, stoma. intoxication, CODE COAG. CT DLP: 1737.3 mGycm. Automated Exposure Control for Dose Reduction was Utilized. TECHNIQUE: CT scan of the head and cervical spine are performed without contrast. FINDINGS: There is no acute intracranial hemorrhage or midline shift identified. Mild ventricular a nd sulcal prominence redemonstrated. Mild low-attenuation in the periventricular white matter redemon strated. The calvarium is intact. Bilateral aphakia redemonstrated. The paranasal sinuses are grossly clear. Cervical spine is visualized in its entirety from C1 through upper thoracic levels and demonstrates s table and satisfactory alignment without evidence of acute fracture or dislocation. Prevertebral sof t tissue appears within normal limits. The C1-C2 articulation is within normal limits on the coronal images. Vertebral body heights are maintained. [id number] multilevel disc space narrowing and spurring is redemonstrated. Thyroid gland appears within normal limits. Lung apices show no pneumoth orax. IMPRESSION: 1. There is no acute fracture or dislocation evident in the cervical spine. 2. No acute intracranial hemorrhage or midline shift is seen. [facility], , 08/28/2024 3:05 AM
--- NOTE | 2024-08-28 03:11 | CT ---
EXAMINATION TYPE: CT ChestAbdPelvis w con DATE OF EXAM: 08/28/2024 COMPARISON: Prior CT January 10, 2024 HISTORY: fall, LLQ abdominal pain, stoma. intoxication, CODE COAG. CT DLP: 2260.4 mGycm. Automated Exposure Control for Dose Reduction was Utilized. CONTRAST: CT scan of the thorax, abdomen and pelvis is performed with IV Contrast, patient injected with 100ml mL of Isovue 300. FINDINGS: LUNGS: Stable 4 mm lateral right basilar nodule axial image 41. No new suspicious focal consolidation . No pleural effusion or pneumothorax seen bilaterally. MEDIASTINUM: Enlarged main pulmonary artery redemonstrated raising concern for underlying pulmonary a rtery hypertension. No cardiomegaly or pericardial effusion. LIVER/GB: Liver remains diffusely low dense consistent with diffuse fatty infiltrative hepatocellular disease. PANCREAS: No significant abnormality is seen. SPLEEN: No significant abnormality is seen. ADRENALS: No significant abnormality is seen. KIDNEYS: No significant abnormality is seen. BOWEL: Persistent left-sided colostomy and parastomal hernia. No abnormal small or large bowel dilata tion. GENITAL ORGANS: No gross abnormality seen. LYMPH NODES: No greater than 1cm abdominal or pelvic lymph nodes are appreciated. OSSEOUS STRUCTURES: No acute displaced fracture. Moderate narrowing of both hip joints. Sclerotic foc us left proximal humerus is redemonstrated. OTHER: No significant additional abnormality is seen. IMPRESSION: No acute posttraumatic finding in particular No acute osseous fracture, abnormal fluid co llection, or evidence of solid organ injury in the thorax, abdomen, or pelvis. [facility], , 08/28/2024 3:09 AM
[2024-08-28 03:16] LABS: Lactic Acid, Venous 3.2 mmol/L (0.7-2.0); Partial Thromboplastin Time 19.9 sec (22.0-30.0)
[2024-08-28 03:17] LABS: Alcohol 406 mg/dL
[2024-08-28] MEDS: FOLIC ACID 1 MG TAB PO STA (03:24)
[2024-08-28] MEDS ORDERED: CALCIUM CARBONATE 500 MG CHEWABLE PO PRN (04:39)
[2024-08-28] MEDS ORDERED: NALOXONE 0.4 MG/ML 1 ML VIAL IV PRN (04:39)
[2024-08-28] MEDS ORDERED: ACETAMINOPHEN TAB 325 MG TAB PO PRN (04:39)
[2024-08-28] MEDS ORDERED: MAG HYDROX/AL HYDROX/SIMETH 30 ML CUP PO PRN (04:39)
[2024-08-28] MEDS ORDERED: chlordiazePOXIDE 25 MG CAP PO PRN ×3 (04:43)
[2024-08-28] MEDS: DEXTROSE 5%-0.45% NACL 1,000 ML IV SCH (08:03)
[2024-08-28] MEDS: THIAMINE 100 MG TAB PO SCH (08:35)
[2024-08-28] MEDS: FAMOTIDINE 20 MG TAB PO SCH (08:36)
[2024-08-28] MEDS: FOLIC ACID 1 MG TAB PO SCH (08:36)
--- NOTE | 2024-08-28 11:22 | P.HPIM ---
History of Present Illness 59-year-old pleasant female came in alcohol intoxication and a fall hitting her head. Patient had a CT of the head and cervical spine along with CT chest and abdomen pelvis all of which were within normal meds no intracranial hemorrhage was evident on the CT of the head. Patient denied any fever chills abdominal pain nausea vomiting. Patient had multiple attempts of quitting alcohol in the past was and alcohol rehabilitation program for a month and relapsed again about a week ago and started drinking about a week ago. Patient alcohol level was very high when she came in patient is more sober now. REVIEW OF SYSTEMS: All other systems are negative except those mentioned in the HPI PHYSICAL EXAMINATION: GENERAL: The patient is alert and oriented x3, not in any acute distress. Well developed, well nourished. HEENT: Pupils are round and equally reacting to light. EOMI. No scleral icterus. No conjunctival pallor. Normocephalic, atraumatic. No pharyngeal erythema. No thyromegaly. CARDIOVASCULAR: S1 and S2 present. No murmurs, rubs, or gallops. PULMONARY: Chest is clear to auscultation, no wheezing or crackles. ABDOMEN: Soft, nontender, nondistended, normoactive bowel sounds. No palpable organomegaly. MUSCULOSKELETAL: No joint swelling or deformity. EXTREMITIES: No cyanosis, clubbing, or pedal edema. NEUROLOGICAL: Gross neurological examination did not reveal any focal deficits. SKIN: No rashes. Assessment and plan -Fell secondary to alcohol intoxication -Alcohol intoxication supportive care IV fluids -Alcohol withdrawal patient is on Librium CIWA protocol. Patient is willing to quit alcohol social work consultation -Generalized deconditioning from chronic alcoholism PT and OT evaluation -Lactic acidosis secondary to dehydration without any evidence of infection at this time continue with IV fluids at 100 cc/h along with thiamine multivitamin supplementation -History of DVT in the past presently not on any anticoagulation -Depression follows with [facility] DVT prophylaxis: Lovenox -GI prophylaxis Pepcid Past Medical History Past Medical History: Deep Vein Thrombosis (DVT), Hypertension Additional Past Medical History / Comment(s): concussion History of Any Multi-Drug Resistant Organisms: None Reported Past Surgical History: Bowel Resection Additional Past Surgical History / Comment(s): jaw surgery, colostomy 01/2023 Past Anesthesia/Blood Transfusion Reactions: No Reported Reaction Past Psychological History: Anxiety, Depression Smoking Status: Former smoker Past Alcohol Use History: Abuse, Daily, Heavy Additional Past Alcohol Use History / Comment(s): states she drinks 6-10 beers daily, vodka on occasion Past Drug Use History: None Reported - Past Family History Father Additional Family Medical History / Comment(s): Spleen CA Mother Family Medical History: COPD Additional Family Medical History / Comment(s): empysema Medications and Allergies Home Medications Medication Instructions Recorded Confirmed Type traZODone HCL 100 mg PO HS PRN 07/05/24 08/28/24 History Allergies Allergy/AdvReac Type Severity Reaction Status Date / Time bacitracin Allergy Rash/Hives Verified 08/28/24 08:28 cephalexin [From Keflex] Allergy Itching Verified 08/28/24 08:28 Physical Exam Vitals: Vital Signs Temp Pulse Resp BP Pulse Ox 08/28/24 09:20 93 18 108/73 97 08/28/24 06:00 84 16 103/73 95 08/28/24 05:00 83 17 117/89 94 L 08/28/24 04:00 93 24 103/68 95 08/28/24 02:28 98.7 F 96 16 121/84 97 Intake and Output 08/27/24 08/28/24 08/28/24 22:59 06:59 14:59 Other: Weight 96.2 kg Results CBC & Chem 7: 08/28/24 02:35 08/28/24 02:35 Labs: Abnormal Lab Results - Last 24 Hours (Table) 08/28/24 08/28/24 08/28/24 Range/Units 02:35 02:35 02:35 Hgb 11.2 L (11.4-16.0) gm/dL RDW 15.9 H (11.5-15.5) % Plt Count 130 L (150-450) k/uL APTT 19.9 L (22.0-30.0) sec Chloride 108 H (98-107) mmol/L Glucose 102 H (74-99) mg/dL Plasma Lactic Acid Antoine (0.7-2.0) mmol/L Creatine Kinase 153 H (30-135) U/L Total Protein 6.2 L (6.3-8.2) g/dL Serum Alcohol 406 H* mg/dL 12/16/24 12/16/24 12/16/24 Range/Units 02:35 06:16 09:53 Hgb (11.4-16.0) gm/dL RDW (11.5-15.5) % Plt Count (150-450) k/uL APTT (22.0-30.0) sec Chloride (98-107) mmol/L Glucose (74-99) mg/dL Plasma Lactic Acid Antoine 3.2 H* 3.2 H* 4.0 H* (0.7-2.0) mmol/L Creatine Kinase (30-135) U/L Total Protein (6.3-8.2) g/dL Serum Alcohol mg/dL
[2024-08-28] MEDS: SODIUM CHLORIDE 0.9% 1,000 ML IV SCH (12:28)
[2024-08-28 18:37] LABS: Appearance,Urine Clear (Clear); Bilirubin,Urine Negative (Negative); Blood,Urine Negative (Negative); Color,Urine Colorless; Glucose,Urine (UA) Negative (Negative); Ketones,Urine Negative (Negative); Leukocyte Esterase,Urine Negative (Negative); Nitrite,Urine Negative (Negative); Protein,Urine Negative (Negative); Urobilinogen,Urine <2.0 mg/dL (<2.0)
[2024-08-28 18:39] LABS: Specific Gravity,Urine >1.050 (1.001-1.035)
[2024-08-28 18:47] LABS: Amphetamine Screen,Urine Not Detected (NotDetected); Barbiturate Screen,Urine Not Detected (NotDetected); Benzodiazepines Screen,Urine Detected (NotDetected); Cocaine Screen,Urine Not Detected (NotDetected); Methadone Screen, Urine Not Detected (NotDetected); Opiate Screen,Urine Not Detected (NotDetected); Oxycodone Screen, Urine Not Detected (NotDetected); Phencyclidine Screen,Urine Not Detected (NotDetected); Tricyclic Antidepressant,Urine Not Detected (NotDetected); Urn Cannabinoid Scrn Not Detected (NotDetected)
[2024-08-28] MEDS: chlordiazePOXIDE 25 MG CAP PO PRN (20:37)
[2024-08-29] MEDS: ONDANSETRON 4 MG/2 ML VIAL IVP PRN (09:49)
[2024-08-29] MEDS: LORazepam 1 MG TAB PO PRN (09:49)
[2024-08-29 13:40] VITALS: BP 148/71; PULSE 96; RESP 17; TEMP 98.7
--- NOTE | 2024-08-31 16:00 | P.DS ---
Providers Date of admission: 08/28/24 04:41 Attending physician: Gladys Persaud Primary care physician: Constant[facility] Course: Date of Service 08/29/2024 Final Diagnosis -Fall secondary to alcohol intoxication -Alcohol intoxication supportive care IV fluids -Alcohol withdrawal patient is on Librium CIWA protocol. Patient is willing to quit alcohol social work consultation -Generalized deconditioning from chronic alcoholism PT and OT evaluation -Lactic acidosis secondary to dehydration without any evidence of infection at this time continue with IV fluids at 100 cc/h along with thiamine multivitamin supplementation -History of DVT in the past presently not on any anticoagulation -Depression follows with [facility] Discharge Disposition Patient is stable for discharge home. Patient will discharge on daily naltrexone. Counseled on the importance of alcohol cessation. Hospital Course 59-year-old pleasant female came in alcohol intoxication and a fall hitting her head. Patient had a CT of the head and cervical spine along with CT chest and abdomen pelvis all of which were within normal meds no intracranial hemorrhage was evident on the CT of the head. Patient denied any fever chills abdominal pain nausea vomiting. Patient had multiple attempts of quitting alcohol in the past was and alcohol rehabilitation program for a month and relapsed again about a week ago and started drinking about a week ago. Patient alcohol level was very high when she came in patient is more sober now. [facility] does come out to the patients house MWF and sometimes on the weekends with a breathalyzer. She does want to get sober. She has plans to go to and get more involved at [facility]. No acute complaints. Will be discharged home on daily naltrexone. Please see medication reconciliation for a list of current medications. Thank you for allowing us to participate in the care of this patient. The impression and plan of care has been dictated by Amita Nelson, Nurse Practitioner as directed. Dr. Erin MD I have performed a history and physical examination and medical decision making of this patient, discussed the same with the dictator, and agree with the dictators assessment and plan as written, documented as a scribe. Based on total visit time, I have performed more than 50% of this visit. Patient Condition at Discharge: Stable Plan - Discharge Summary Discharge Rx Participant: Yes New Discharge Prescriptions: New Famotidine [Pepcid] 20 mg PO BID #60 tab Folic Acid 1 mg PO DAILY #30 tab Naltrexone HCl [Revia] 50 mg PO DAILY #30 tablet Thiamine [Vitamin B-1] 100 mg PO DAILY #30 tab Continue traZODone HCL 100 mg PO HS PRN PRN Reason: Insomnia Discharge Medication List traZODone HCL 100 mg PO HS PRN 07/05/24 [History] Famotidine [Pepcid] 20 mg PO BID #60 tab 08/29/24 [Rx] Folic Acid 1 mg PO DAILY #30 tab 08/29/24 [Rx] Naltrexone HCl [Revia] 50 mg PO DAILY #30 tablet 08/29/24 [Rx] Thiamine [Vitamin B-1] 100 mg PO DAILY #30 tab 08/29/24 [Rx] Follow up Appointment(s)/Referral(s): Constantine Figueroa DO [Primary Care Provider] - 1-2 days [facility] [NON-STAFF] - 1 Week Discharge/Stand Alone Forms: AA Meetings [facility] & 24 - [facility], AA Meetings [facility] In Substance Abuse Facilities Discharge Disposition: HOME SELF-CARE
== END 2024-08-29 16:06 | disposition home or self-care (01) ==
LOC: EC 02:17 → 4SSUR 04:41
PROVIDERS: ADMIT Internal Medicine; ATTEND Internal Medicine
DX: F10.229 Alcohol dependence with intoxication, unspecified (principal); F10.239 Alcohol dependence with withdrawal, unspecified; E86.0 Dehydration; E87.20 Acidosis, unspecified; I10 Essential (primary) hypertension; F32.A Depression, unspecified; F41.9 Anxiety disorder, unspecified; Y90.8 Blood alcohol level of 240 mg/100 ml or more; Z86.718 Personal history of other venous thrombosis and embolism; Z87.891 Personal history of nicotine dependence; Z79.01 Long term (current) use of anticoagulants; Z88.1 Allergy status to other antibiotic agents
CPT/HCPCS: 96375; 96361; 96372; 96374; 99285; 36415; 93005; 97161; 97165; 80053; 82140; 82550; 83605; 83690; 83735; 84100; 84484; 85025; 85610; 85730; 81003; 80306; 72125; 70450; 71260; 74177; G0378 ×2; L0120; G0480; J2060; J3411; J2405; Q9967; 80320

== ENCOUNTER 2024-11-08 01:34 | Inpatient (IN) | payer MEDICARE, OTHER ==
--- NOTE | 2024-11-08 02:01 | ED ---
Fall HPI - General Stated Complaint: Fall Time Seen by Provider: 11/08/24 01:44 Source: patient Mode of arrival: EMS Limitations: no limitations - History of Present Illness Initial Comments: This patient is a 59-year-old woman who is brought to have evaluation after having a fall. Patient called EMS as she had fallen and struck her head. The patient states she had been drinking, lost her balance, fell over her table and landed on the ground. She indicates pain to the posterior aspect of the head, also neck pain and pain to the bilateral ribs. Patient does not believe that she lost consciousness. She states that it took her a while to be able to get back up. Denies back, abdomen, or extremity pains. MD Complaint: fall -: hour(s) When Fall Occurred: 1-3 hours ENTRY EXAMINER Fall Witnessed: no Place Fall Occurred: home Loss of Consciousness: none Prolonged Down Time?: hour(s) (2) Symptoms Prior to Fall: none Location: head, neck Severity: moderate Quality: dull Context: tripped/slipped, alcohol use Associated Symptoms: headache, neck pain - Related Data Home Medications Medication Instructions Recorded Confirmed Multivitamins, Thera [Multivitamin 1 tab PO DAILY 11/08/24 11/08/24 (formulary)] Previous Rx's Medication Instructions Recorded Acetaminophen Tab [Tylenol] 650 mg PO Q6HR PRN tab 10/16/24 Folic Acid 1 mg PO DAILY #30 tab 10/16/24 Metoprolol Tartrate [Lopressor] 25 mg PO BID #60 tab 10/16/24 Thiamine [Vitamin B-1] 100 mg PO DAILY #30 tab 10/16/24 chlordiazePOXIDE HCl [Librium] 25 mg PO DIRECTED 3 Days #6 cap 11/09/24 Allergies Allergy/AdvReac Type Severity Reaction Status Date / Time bacitracin Allergy Rash/Hives Verified 11/08/24 06:53 cephalexin [From Keflex] Allergy Itching Verified 11/08/24 06:53 Review of Systems ROS Statement: Those systems with pertinent positive or pertinent negative responses have been documented in the HPI. ROS Other: All systems not noted in ROS Statement are negative. Constitutional: Reports: weakness. Denies: fever Eyes: Denies: vision change Respiratory: Denies: cough, dyspnea Cardiovascular: Reports: chest pain (Bilateral ribs). Denies: palpitations, orthopnea, syncope Gastrointestinal: Denies: abdominal pain, vomiting, diarrhea Genitourinary: Denies: dysuria, hematuria Musculoskeletal: Denies: back pain Skin: Denies: rash Neurological: Denies: headache, weakness Hematological/Lymphatic: Denies: easy bleeding Past Medical History Past Medical History: Deep Vein Thrombosis (DVT), Hypertension Additional Past Medical History / Comment(s): concussion History of Any Multi-Drug Resistant Organisms: None Reported Past Surgical History: Bowel Resection Additional Past Surgical History / Comment(s): jaw surgery, colostomy 01/2023 Past Anesthesia/Blood Transfusion Reactions: No Reported Reaction Past Psychological History: Anxiety, Depression Smoking Status: Former smoker Past Alcohol Use History: Abuse, Daily, Heavy Additional Past Alcohol Use History / Comment(s): states she drinks 6-10 beers daily, vodka on occasion Past Drug Use History: None Reported - Past Family History Father Additional Family Medical History / Comment(s): Spleen CA Mother Family Medical History: COPD Additional Family Medical History / Comment(s): empysema General Exam General appearance: alert, in no apparent distress, appears intoxicated Head exam: Present: atraumatic, normocephalic Eye exam: Present: normal appearance, PERRL, EOMI, nystagmus. Absent: scleral icterus, conjunctival injection ENT exam: Present: normal oropharynx Neck exam: Present: normal inspection, tenderness, other (Cervical collar) Respiratory exam: Present: normal lung sounds bilaterally, chest wall tend erness. Absent: respiratory distress, wheezes, rales, rhonchi, stridor, accessory muscle use Cardiovascular Exam: Present: regular rate, normal rhythm, normal heart sounds. Absent: systolic murmur, diastolic murmur, rubs, gallop GI/Abdominal exam: Present: soft, other (Patient has ostomy in the left abdomen which does appear to be having some dark red bloody output). Absent: distended, tenderness, guarding, rebound, rigid, mass Extremities exam: Present: normal inspection, normal capillary refill. Absent: pedal edema, calf tenderness Back exam: Present: normal inspection. Absent: CVA tenderness (R), CVA tenderness (L), vertebral tenderness Neurological exam: Present: alert, oriented X3, CN II-XII intact. Absent: motor sensory deficit Skin exam: Present: warm, dry, intact, normal color. Absent: rash Course Vital Signs 11/08/24 11/08/24 11/08/24 01:48 02:09 05:13 Temperature 98.7 F Pulse Rate 87 82 86 Respiratory 18 18 18 Rate Blood Pressure 118/82 121/81 126/86 O2 Sat by Pulse 93 L 95 95 Oximetry 11/08/24 11/08/24 11/08/24 07:43 10:00 14:21 Temperature 98.2 F Pulse Rate 84 86 87 Respiratory 16 18 20 Rate Blood Pressure 131/86 141/103 130/105 O2 Sat by Pulse 95 98 96 Oximetry 11/08/24 11/08/24 11/08/24 15:20 16:26 16:55 Temperature Pulse Rate 89 85 Respiratory 20 20 Rate Blood Pressure 145/100 142/104 147/110 O2 Sat by Pulse 95 95 Oximetry 11/08/24 11/08/24 11/08/24 17:48 20:07 23:17 Temperature Pulse Rate 87 94 92 Respiratory 16 18 18 Rate Blood Pressure 140/90 131/101 146/119 O2 Sat by Pulse 96 95 96 Oximetry 11/09/24 11/09/24 11/09/24 03:08 06:40 08:00 Temperature 98.4 F Pulse Rate 81 80 90 Respiratory 18 18 18 Rate Blood Pressure 162/110 154/97 156/106 O2 Sat by Pulse 94 L 97 Oximetry 11/09/24 11/09/24 11/09/24 09:22 11:04 14:00 Temperature Pulse Rate 90 77 92 Respiratory 18 18 18 Rate Blood Pressure 156/100 150/97 O2 Sat by Pulse 97 97 97 Oximetry 11/09/24 11/09/24 11/09/24 18:00 19:57 21:36 Temperature 99.5 F Pulse Rate 100 97 100 Respiratory 18 15 16 Rate Blood Pressure 161/122 163/102 165/112 O2 Sat by Pulse 98 95 95 Oximetry 11/09/24 11/10/24 11/10/24 22:34 01:00 05:09 Temperature Pulse Rate 86 87 92 Respiratory 14 15 14 Rate Blood Pressure 172/108 155/102 155/103 O2 Sat by Pulse 95 95 95 Oximetry 11/10/24 11/10/24 06:45 08:30 Temperature 98.9 F Pulse Rate 94 70 Respiratory 15 20 Rate Blood Pressure 139/95 144/87 O2 Sat by Pulse 95 Oximetry Medical Decision Making - Medical Decision Making The patient had chest x-ray that I interpreted as negative for acute infiltrate, pneumothorax, congestive heart failure. The patient had CT scan of the brain and C-spine that I interpreted as negative for acute bony injury, negative for acute intracranial hemorrhage, mass effect or midline shift. Was pt. sent in by a medical professional or institution (, PA, MILL OPERATOR HEAD, urgent care, hospital, or correction...) When possible be specific @ -[No] Did you speak to anyone other than the patient for history (EMS, parent, family, police, friend...)? What history was obtained from this source @ -[No] Did you review nursing and triage notes (agree or disagree)? Why? @ -[I reviewed and agree with nursing and triage notes] Were old charts reviewed (outside hosp., previous admission, EMS record, old EKG, old radiological studies, urgent care reports/EKG's, correction records)? Report findings @ -[No old charts were reviewed] Differential Diagnosis (chest pain, altered mental status, abdominal pain women, abdominal pain men, vaginal bleeding, weakness, fever, dyspnea, syncope, headache, dizziness, GI bleed, back pain, seizure, CVA, palpatations, mental health, musculoskeletal)? @ -[Differential Musculoskeletal Muscular strain, contusion, ligament sprain, fracture, arthritis, septic arthritis, bursitis, cellulitis, muscle spasm, nerve compression, DVT, arterial occlusion, herpes zoster, electrolyte abnormality, tumor.... This is not meant to be in all inclusive list Differential GI Bleed: Esophageal varices, aortoenteric fistula, Summer-Ambriz, gastritis, peptic ulcer disease, diverticulosis, inflammatory bowel disease, hemorrhoids, fissure, colitis, malignancy, Meckel's diverticulum, this is not meant to be an all- inclusive list. EKG interpreted by me (3pts min.). @ -[As above] X-rays interpreted by me (1pt min.). @ -[I interpreted as above CT interpreted by me (1pt min.). @ -[I interpreted as above U/S interpreted by me (1pt. min.). @ -[None done] What testing was considered but not performed or refused? (CT, X-rays, U/S, labs)? Why? @ -[None] What meds were considered but not given or refused? Why? @ -[None] Did you discuss the management of the patient with other professionals (professionals i.e. , PA, MILL OPERATOR HEAD, lab, RT, psych nurse, social media manager, geothermal powerplant mechanic, teacher, hospital chief financial officer, case resolution specialist)? Give summary @ -[Case discussed with admitting physician and treatment recommendations incorporated Was smoking cessation discussed for >3mins.? @ -[No] Was critical care preformed (if so, how long)? @ -[No] Were there social determinants of health that impacted care today? How? (Homelessness, low income, unemployed, alcoholism, drug addiction, transportation, low edu. Level, literacy, decrease access to med. care, fpc, rehab)? @ -[Alcohol dependence Was there de-escalation of care discussed even if they declined (Discuss DNR or withdrawal of care, Hospice)? DNR status @ -[No] What co-morbidities impacted this encounter? (DM, HTN, Smoking, COPD, CAD, Cancer, CVA, ARF, Chemo, Hep., AIDS, mental health diagnosis, sleep apnea, morbid obesity)? @ -[Alcohol dependence Was patient admitted / discharged? Hospital course, mention meds given and route, prescriptions, significant lab abnormalities, going to OR and other pertinent info. @ -[Patient is 59-year-old woman here with complaints related to a fall. She does have markedly high alcohol level and at risk for severe withdrawal. In addition the patient found to have bloody stools. Patient will therefore be admitted to manage impending DTs and also have GI consultation related to GI bleeding. Undiagnosed new problem with uncertain prognosis? @ -[No] Drug Therapy requiring intensive monitoring for toxicity (Heparin, Nitro, Insulin, Cardizem)? @ -[No] Were any procedures done? @ -[No] Diagnosis/symptom? @ -[Acute alcohol intoxication with impending DTs GI bleeding Acute fall injury Acute, or Chronic, or Acute on Chronic? @ -[Acute Uncomplicated (without systemic symptoms) or Complicated (systemic symptoms)? @ -[Uncomplicated Side effects of treatment? @ -[No] Exacerbation, Progression, or Severe Exacerbation? @ -[No] Poses a threat to life or bodily function? How? (Chest pain, [place], [place], pneumonia, PE, COPD, DKA, ARF, appy, cholecystitis, CVA, Diverticulitis, Homicidal, Suicidal, threat to staff... and all critical care pts) @ -[Yes there is significant morbidity and mortality associated with DTs and also with GI bleeding All treatments are based on ideal body weight as in ED triage - Lab Data Result diagrams: 11/09/24 07:41 11/08/24 01:57 Lab Results 11/08/24 11/08/24 11/08/24 Range/Units 01:57 01:57 02:09 WBC 3.8 (3.8-10.6) k/uL RBC 3.79 L (3.80-5.40) m/uL Hgb 10.3 L (11.4-16.0) gm/dL Hct 33.3 L (34.0-46.0) % MCV 87.9 (80.0-100.0) fL MCH 27.1 (25.0-35.0) pg MCHC 30.8 L (31.0-37.0) g/dL RDW 16.8 H (11.5-15.5) % Plt Count 189 (150-450) k/uL MPV 7.8 Neutrophils % 44 % Lymphocytes % 37 % Monocytes % 10 % Eosinophils % 5 % Basophils % 1 % Neutrophils # 1.7 (1.3-7.7) k/uL Lymphocytes # 1.4 (1.0-4.8) k/uL Monocytes # 0.4 (0-1.0) k/uL Eosinophils # 0.2 (0-0.7) k/uL Basophils # 0.0 (0-0.2) k/uL Hypochromasia Slight Anisocytosis Slight Sodium 141 (137-145) mmol/L Potassium 3.7 (3.5-5.1) mmol/L Chloride 105 (98-107) mmol/L Carbon Dioxide 25 (22-30) mmol/L Anion Gap 11 mmol/L BUN 11 (7-17) mg/dL Creatinine 0.56 (0.52-1.04) mg/dL Est GFR (CKD-EPI)AfAm >90 (>60 ml/min/1.73 sqM) Est GFR (CKD-EPI)NonAf >90 (>60 ml/min/1.73 sqM) Glucose 92 (74-99) mg/dL Calcium 8.6 (8.4-10.2) mg/dL Total Bilirubin 0.3 (0.2-1.3) mg/dL AST 35 (14-36) U/L ALT 19 (4-34) U/L Alkaline Phosphatase 59 (38-126) U/L Total Protein 6.0 L (6.3-8.2) g/dL Albumin 3.7 (3.5-5.0) g/dL Stool Occult Blood Positive H (Negative) Serum Alcohol 405 H* mg/dL - EKG Data -: EKG Interpreted by Me EKG shows normal: sinus rhythm, axis (Normal), intervals (Normal), QRS complexes ( normal) Interpretation: nonspecific ST-T wave changes Disposition Clinical Impression: GI bleeding, Fall, Alcohol use disorder Disposition: ADMITTED IP TO THIS HOSP Condition: Stable Is patient prescribed a controlled substance at d/c from ED?: No
[2024-11-08 02:19] LABS: ALT 19 U/L (4-34); AST 35 U/L (14-36); African American GFR (CKD) >90 (>60 ml/min/1.73 sqM); Albumin 3.7 g/dL (3.5-5.0); Alkaline Phosphatase 59 U/L (38-126); Anion Gap 11 mmol/L; Blood Urea Nitrogen 11 mg/dL (7-17); Calcium 8.6 mg/dL (8.4-10.2); Carbon Dioxide 25 mmol/L (22-30); Chloride 105 mmol/L (98-107); Glucose 92 mg/dL (74-99); Non-African American GFR(CKD) >90 (>60 ml/min/1.73 sqM); Potassium 3.7 mmol/L (3.5-5.1); Sodium 141 mmol/L (137-145); Total Bilirubin 0.3 mg/dL (0.2-1.3)
--- NOTE | 2024-11-08 02:23 | XR ---
EXAM: XR Chest, 1 View CLINICAL HISTORY: XR Reason: fall injury TECHNIQUE: Frontal view of the chest. COMPARISON: No relevant prior studies available. FINDINGS: Lungs: Prominent central vascular and interstitial markings suggesting vasocongestion and/or bronchovascular crowding. No overt edema or acute focal infiltrate is identified. Pleural space: Unremarkable. No pneumothorax. Heart: The cardiac silhouette is borderline enlarged, exaggerated by technique. Mediastinum: Unremarkable. Normal mediastinal contour. Bones/joints: Unremarkable. No acute fracture. Upper abdomen: Unremarkable as visualized. No pneumoperitoneum is seen under the diaphragm. IMPRESSION: 1. Prominent central vascular and interstitial markings suggesting vasocongestion and/or bronchovascular crowding. No overt edema or acute focal infiltrate is identified. 2. No acute traumatic findings are identified.
--- NOTE | 2024-11-08 02:50 | CT ---
EXAM: CT Head Without Intravenous Contrast CLINICAL HISTORY: CT Reason: fall injury TECHNIQUE: Axial computed tomography images of the head/brain without intravenous contrast. CTDI is 45.2 mGy and DLP is 1126 mGy-cm. This CT exam was performed using one or more of the following dose reduction techniques: automated exposure control, adjustment of the mA and/or kV according to patient size, and/or use of iterative reconstruction technique. COMPARISON: October 15, 2024 FINDINGS: Brain: Unremarkable. No hemorrhage. No significant white matter disease. No edema. Ventricles: Unremarkable. No ventriculomegaly. Bones/joints: Mild chronic appearing mucosal thickening in the inferior aspect of both maxillary sinuses. The remaining sinuses are unremarkable. No fractures are seen. Soft tissues: Unremarkable. Sinuses: Unremarkable as visualized. No acute sinusitis. Mastoid air cells: Unremarkable as visualized. No mastoid effusion. IMPRESSION: Unremarkable appearance of the brain. No intracranial hemorrhage or infarct is identified. EXAM: CT Cervical Spine Without Intravenous Contrast CLINICAL HISTORY: CT Reason: fall injury TECHNIQUE: Axial computed tomography images of the cervical spine without intravenous contrast. CTDI is 16.7 mGy and DLP is 539.7 mGy-cm. This CT exam was performed using one or more of the following dose reduction techniques: automated exposure control, adjustment of the mA and/or kV according to patient size, and/or use of iterative reconstruction technique. COMPARISON: No relevant prior studies available. FINDINGS: Vertebrae: Unremarkable. No acute fracture. Soft tissues: Mild calcified plaque involving the left carotid bifurcation.. DISCS/SPINAL CANAL/NEURAL FORAMINA: C2-C3: Unremarkable. No significant disc disease. No stenosis. C3-C4: Mild degenerative disc disease. No stenosis. C4-C5: Mild degenerative disc disease. No stenosis. C5-C6: Mild degenerative disc disease. No stenosis. C6-C7: Mild degenerative disc disease. No stenosis. C7-T1: Mild degenerative disc disease. No stenosis. IMPRESSION: Multilevel degenerative disc disease and facet arthrosis throughout the cervical spine. No acute fracture or subluxation is seen.
[2024-11-08 03:22] LABS: Alcohol 405 mg/dL
[2024-11-08 03:56] LABS: Anisocytosis Slight; Basophils % (A) 1 %; Eosinophils # (A) 0.2 k/uL (0-0.7); Eosinophils % (A) 5 %; HCT 33.3 % (34.0-46.0); HGB 10.3 gm/dL (11.4-16.0); Hypochromasia Slight; Lymphocytes # (A) 1.4 k/uL (1.0-4.8); Lymphocytes % (A) 37 %; MCH 27.1 pg (25.0-35.0); MCHC 30.8 g/dL (31.0-37.0); MCV 87.9 fL (80.0-100.0); Mean Platelet Volume 7.8; Monocytes # (A) 0.4 k/uL (0-1.0); Monocytes % (A) 10 %; Neutrophils # (A) 1.7 k/uL (1.3-7.7); Neutrophils % (A) 44 %; Platelet Count 189 k/uL (150-450); RBC 3.79 m/uL (3.80-5.40); RDW 16.8 % (11.5-15.5); WBC 3.8 k/uL (3.8-10.6)
[2024-11-08] MEDS: PANTOPRAZOLE 40 MG/10 ML VIAL IVP ONE (05:59)
[2024-11-08] MEDS ORDERED: NALOXONE 0.4 MG/ML 1 ML VIAL IV PRN (06:04)
[2024-11-08] MEDS ORDERED: ONDANSETRON 4 MG/2 ML VIAL IVP PRN (06:04)
[2024-11-08] MEDS ORDERED: MAG HYDROX/AL HYDROX/SIMETH 30 ML CUP PO PRN (06:04)
[2024-11-08] MEDS ORDERED: chlordiazePOXIDE 25 MG CAP PO PRN (06:07)
[2024-11-08] MEDS ORDERED: LORazepam 2 MG/ML INJ IV PRN (06:07)
[2024-11-08] MEDS: SODIUM CHLORIDE 0.9% 1,000 ML IV SCH (06:54)
[2024-11-08] MEDS: PANTOPRAZOLE 40 MG/10 ML VIAL IV SCH (07:57)
[2024-11-08 08:22] LABS: Prothrombin Time 11.3 sec (10.0-12.5)
[2024-11-08] MEDS: THIAMINE 100 MG TAB PO SCH (08:25)
[2024-11-08] MEDS: MULTIVITAMINS, THERA 1 EACH TAB PO SCH (08:25)
[2024-11-08] MEDS: METOPROLOL TARTRATE 25 MG TAB PO SCH (08:25)
[2024-11-08] MEDS: FOLIC ACID 1 MG TAB PO SCH (08:25)
[2024-11-08] MEDS ORDERED: ACETAMINOPHEN TAB 325 MG TAB PO PRN (10:03)
[2024-11-08] MEDS: chlordiazePOXIDE 25 MG CAP PO SCH (10:07)
--- NOTE | 2024-11-08 12:53 | P.CONS ---
History of Present Illness - Reason for Consult Consult date: 11/08/24 GI bleed Requesting physician: Jesse Howe - Chief Complaint Alcohol intoxication, recent fall - History of Present Illness This a pleasant 59-year-old female who had presented to the emergency department yesterday after sustaining a fall and complaining of head and neck pain. Past medical history includes history of deep vein thrombosis on Xarelto, hypertension, bowel resection with colostomy bag secondary to an injury, and daily alcohol abuse. She states she has been told that she has the beginning of the liver cirrhosis or liver disease. Patient states that she is a daily drinker drinks 7-10 beers daily. Patient was intoxicated on admission with a blood alcohol level 405. Patient denies any abdominal pain, nausea or vomiting. She denies any hematemesis or coffee-ground emesis denies any blood in her stool or black stool. Patient has a positive occult stool gastroenterology was consulted for GI bleed. Patient denies knowledge of any recent blood in her stool or black stool. States she had a EGD and colonoscopy about 3 years ago in the [place] area, however no reports are available. WBC 3.8 hemoglobin 10.3 hematocrit 33 platelet count 189,000 INR 1.0 liver enzymes unremarkable. Stool occult blood positive. Review of Systems REVIEW OF SYSTEMS: CARDIOPULMONARY: No chest pain or shortness of breath. Gastrointestinal: No abdominal pain. No nausea or vomiting. No hematemesis, coffee-ground emesis. No rectal bleeding, or melena. GENITOURINARY: No dysuria or hematuria. MUSCULOSKELETAL: Reports normal range of motion. Her reports of neck and back pain. SKIN: No rashes. No jaundice. ENDOCRINE: No chills, fevers. No excessive weight gain or loss. No polydipsia or polyuria. PSYCHIATRIC: Unremarkable. NEUROLOGY: No change in mental status. Denies dizziness, headache. ENT: Vision unremarkable. CONSTITUTIONAL: No recent weight loss. No fever, chills, night sweats. Past Medical History Past Medical History: Deep Vein Thrombosis (DVT), Hypertension Additional Past Medical History / Comment(s): concussion History of Any Multi-Drug Resistant Organisms: None Reported Past Surgical History: Bowel Resection Additional Past Surgical History / Comment(s): jaw surgery, colostomy 01/2023 Past Anesthesia/Blood Transfusion Reactions: No Reported Reaction Past Psychological History: Anxiety, Depression Smoking Status: Former smoker Past Alcohol Use History: Abuse, Daily, Heavy Additional Past Alcohol Use History / Comment(s): states she drinks 6-10 beers daily, vodka on occasion Past Drug Use History: None Reported - Past Family History Father Additional Family Medical History / Comment(s): Spleen CA Mother Family Medical History: COPD Additional Family Medical History / Comment(s): empysema Medications and Allergies Home Medications Medication Instructions Recorded Confirmed Type Acetaminophen Tab [Tylenol] 650 mg PO Q6HR PRN tab 10/16/24 11/08/24 Rx Folic Acid 1 mg PO DAILY #30 tab 10/16/24 11/08/24 Rx Metoprolol Tartrate [Lopressor] 25 mg PO BID #60 tab 10/16/24 11/08/24 Rx Thiamine [Vitamin B-1] 100 mg PO DAILY #30 tab 10/16/24 11/08/24 Rx Multivitamins, Thera [Multivitamin 1 tab PO DAILY 11/08/24 11/08/24 History (formulary)] Allergies Allergy/AdvReac Type Severity Reaction Status Date / Time bacitracin Allergy Rash/Hives Verified 11/08/24 06:53 cephalexin [From Keflex] Allergy Itching Verified 11/08/24 06:53 Physical Exam Vitals: Vital Signs Temp Pulse Resp BP Pulse Ox 11/08/24 07:43 98.2 F 84 16 131/86 95 11/08/24 05:13 86 18 126/86 95 11/08/24 02:09 82 18 121/81 95 11/08/24 01:48 98.7 F 87 18 118/82 93 L Intake and Output 11/07/24 11/08/24 11/08/24 22:59 06:59 14:59 Other: Weight 109.724 kg General appearance: The patient is alert, oriented, appears in no acute distress. HET: Head is normocephalic and atraumatic. Conjunctiva pink. Sclera anicteric. Neck: Supple without lymphadenopathy. Trachea midline. Heart: Regular. Lungs: Equal expansion, normal respiratory effort. Abdomen: Soft, nontender, colostomy bag with soft brown loose stool, erythema surrounding colostomy bag on abdomen, stool leaking out of bag. Nondistended. Skin: No rashes. No jaundice. Extremities: Normal skin color and turgor. No pedal edema. Neurological: No focal deficits. Alert and oriented x3. Results CBC & Chem 7: 11/08/24 01:57 11/08/24 01:57 Labs: Abnormal Lab Results - Last 24 Hours (Table) 11/08/24 11/08/24 11/08/24 Range/Units 01:57 01:57 02:09 RBC 3.79 L (3.80-5.40) m/uL Hgb 10.3 L (11.4-16.0) gm/dL Hct 33.3 L (34.0-46.0) % MCHC 30.8 L (31.0-37.0) g/dL RDW 16.8 H (11.5-15.5) % Total Protein 6.0 L (6.3-8.2) g/dL Stool Occult Blood Positive H (Negative) Serum Alcohol 405 H* mg/dL Assessment and Plan (1) Chronic anemia Narrative/Plan: 59-year-old female with alcohol abuse disorder who drinks daily came in intoxicated after recent fall. She is on Xarelto for history of DVT and has a colostomy bag secondary to a bowel resection from an injury according to the patient. An occult stool was obtained that was positive and gastroenterology consulted. Colostomy with soft brown stool. Patient has mild anemia likely secondary to underlying liver disease. Reviewing previous labs patient has had chronic anemia. Reported recent EGD colonoscopy about 3 years ago. Hold Xarelto at this time. Will treat with Protonix for GI prophylaxis. Will continue to monitor for blood in stool. Current Visit: Yes Status: Acute Code(s): D64.9 - ANEMIA, UNSPECIFIED SNOMED Code(s): 105413792 (2) Occult blood positive stool Narrative/Plan: Occult positive stool likely positive secondary to bleeding from edge of stoma secondary to irritation. Stool is normal soft brown color. Unlikely GI bleed. Current Visit: Yes Status: Acute Code(s): R19.5 - OTHER FECAL ABNORMALITIES SNOMED Code(s): 36385028 (3) Fall Current Visit: No Status: Acute Code(s): W19.XXXA - UNSPECIFIED FALL, INITIAL ENCOUNTER SNOMED Code(s): 8354946 (4) Alcohol use disorder, severe, dependence Current Visit: No Status: Chronic Priority: High Code(s): F10.20 - ALCOHOL DEPENDENCE, UNCOMPLICATED SNOMED Code(s): 383124158 (5) Alcohol intoxication Current Visit: No Status: Resolved Priority: Low Code(s): F10.929 - ALCOHOL USE, UNSPECIFIED WITH INTOXICATION, UNSPECIFIED SNOMED Code(s): 89088719 Plan: 1. Continue symptomatic and supportive care 2. May resume anticoagulation 3. Protonix 40 mg daily for GI prophylaxis 4. Consult to ostomy nurse, change ostomy bag 5. Recommend alcohol abstinence 6. Daily CBC, transfuse for hemoglobin less than 7 7. Likely occult stool positive was secondary to irritated stoma with bleeding and around the edges. 8. No plans on endoscopic evaluation Thank you for this consultation, we will continue to follow. Dr. Leola Potts I agree with the dictator's note, documented as a scribe by Fatoumata Jurado.
[2024-11-08] MEDS: LORazepam 2 MG/ML INJ IV PRN (14:23)
--- NOTE | 2024-11-08 14:56 | P.HPIM ---
History of Present Illness H&P Date: 11/08/24 This is a 59-year-old female history of , hypertension, chronic alcoholism, colostomy bag with frequent admissions for alcohol intoxication and withdrawal. Patient was discharged from the hospital 3 weeks ago where she was admitted for acute alcohol intoxication with withdrawal as well as a mechanical fall. Does follow with [facility] on an outpatient basis and they do come to her house to perform breathalyzer. Patient is supposed to be on Xarelto for DVT history although she has been noncompliant with this medication. Patient comes into the hospital this admission after a fall at home she states that she had fallen and struck her head has been drinking lost balance from tripping over her cat and fell. Patient has neck pain and bilateral rib pain from the fall initially although today states she is feeling well. Patient wants to quit alcohol, has had multiple hospitalizations for intoxication and withdrawal and has gone to rehab many times in the past. Patient admits to drinking 6 to 8 beers per day as well as 2 mixed drinks of vodka daily. Chest x-ray reveals prominent central vascular and interstitial markings suggestion basilar congestion and no bronchovascular crowding. No overt edema or acute focal infiltrate is identified. There are no acute traumatic findings. And cervical spine CT reveal multilevel degenerative disc review of and facet arthrosis throu ghout the cervical spine with no acute fracture or subluxation seen. EKG reveals normal sinus rhythm with a heart rate of [address] or T wave changes evident. Blood work reveals a white blood cell count 3.8 hemoglobin 10.3 platelet count 189 her electrolytes within normal limits exception of a total protein level of 6.0. Patient was found to have a serum alcohol level of 405 and a positive occult blood. There is scant amount of bright red blood in the ostomy bag with limited amt of soft formed brown stool. Was admitted to the hospital under internal medicine with a consult to gastroenterology for acute GI bleeding. Patient is currently on a clear liquid diet. Patient had normal saline at 75 mL/h. Started on Ativan CIWA protocol as well as Librium. REVIEW OF SYSTEMS: CONSTITUTIONAL: No fever, no malaise, no fatigue. HEENT: No recent visual problems or hearing problems. Denied any sore throat. CARDIOVASCULAR: No chest pain, orthopnea, PND, no palpitations, no syncope. PULMONARY: No shortness of breath, no cough, no hemoptysis. GASTROINTESTINAL: No diarrhea, no nausea, no vomiting, no abdominal pain. NEUROLOGICAL: No headaches, no weakness, no numbness. HEMATOLOGICAL: Denies any bleeding or petechiae. GENITOURINARY: Denies any burning micturition, frequency, or urgency. MUSCULOSKELETAL/RHEUMATOLOGICAL: Denies any joint pain, swelling, or any muscle pain. ENDOCRINE: Denies any polyuria or polydipsia. The rest of the 14-point review of systems is negative. PHYSICAL EXAMINATION: GENERAL: The patient is alert and oriented x3, not in any acute distress. Well d eveloped, well nourished. HEENT: Pupils are round and equally reacting to light. EOMI. No scleral icterus. No conjunctival pallor. Normocephalic, atraumatic. No pharyngeal erythema. No thyromegaly. CARDIOVASCULAR: S1 and S2 present. No murmurs, rubs, or gallops. PULMONARY: Chest is clear to auscultation, no wheezing or crackles. ABDOMEN: Soft, nontender, nondistended, normoactive bowel sounds. No palpable organomegaly. LLQ ostomy bag in place. MUSCULOSKELETAL: No joint swelling or deformity. EXTREMITIES: No cyanosis, clubbing, or pedal edema. NEUROLOGICAL: Gross neurological examination did not reveal any focal deficits. SKIN: No rashes. Assessment and plan Acute alcohol intoxication Traumatic fall secondary to above Positive stool occult History of hypertension History of DVT noncompliant with Xarelto therapy Hx of bowel resection and colostomy bag in 2012 patient required silver nitrate cautery secondary to bleeding at the stoma site Anxiety/depression Chronic alcoholism GI prophylaxis DVT prophylaxis Full code Plan GI consultation patient currently on protonix BID Continue IV Ativan CIWA protocol and monitor for any signs of acute alcohol withdrawal Librium has been added 25 mg tid scheduled Resume home medications PT/OT consultation and social work Patient to follow up with Dr Vicente on follow up for the colostomy patient states she was supposed to have a reversal Counseled extensively on the importance of quitting alcohol and patient verbalized understanding and does want to quit alcohol. Monitor CBC The impression and plan of care has been dictated by Amita Nelson Nurse Practitioner as directed. Dr. Erin MD I have performed a history and physical examination and medical decision making of this patient, discussed the same with the dictator, and agree with the dictators assessment and plan as written, documented as a scribe. Based on total visit time, I have performed more than 50% of this visit. Past Medical History Past Medical History: Deep Vein Thrombosis (DVT), Hypertension Additional Past Medical History / Comment(s): concussion History of Any Multi-Drug Resistant Organisms: None Reported Past Surgical History: Bowel Resection Additional Past Surgical History / Comment(s): jaw surgery, colostomy 01/2023 Past Anesthesia/Blood Transfusion Reactions: No Reported Reaction Past Psychological History: Anxiety, Depression Smoking Status: Former smoker Past Alcohol Use History: Abuse, Daily, Heavy Additional Past Alcohol Use History / Comment(s): states she drinks 6-10 beers daily, vodka on occasion Past Drug Use History: None Reported - Past Family History Father Additional Family Medical History / Comment(s): Spleen CA Mother Family Medical History: COPD Additional Family Medical History / Comment(s): empysema Medications and Allergies Home Medications Medication Instructions Recorded Confirmed Type Acetaminophen Tab [Tylenol] 650 mg PO Q6HR PRN tab 10/16/24 11/08/24 Rx Folic Acid 1 mg PO DAILY #30 tab 10/16/24 11/08/24 Rx Metoprolol Tartrate [Lopressor] 25 mg PO BID #60 tab 10/16/24 11/08/24 Rx Thiamine [Vitamin B-1] 100 mg PO DAILY #30 tab 10/16/24 11/08/24 Rx Multivitamins, Thera [Multivitamin 1 tab PO DAILY 11/08/24 11/08/24 History (formulary)] Allergies Allergy/AdvReac Type Severity Reaction Status Date / Time bacitracin Allergy Rash/Hives Verified 11/08/24 06:53 cephalexin [From Keflex] Allergy Itching Verified 11/08/24 06:53 Physical Exam Vitals: Vital Signs Temp Pulse Resp BP Pulse Ox 11/08/24 07:43 98.2 F 84 16 131/86 95 11/08/24 05:13 86 18 126/86 95 11/08/24 02:09 82 18 121/81 95 11/08/24 01:48 98.7 F 87 18 118/82 93 L Intake and Output 11/07/24 11/08/24 11/08/24 22:59 06:59 14:59 Other: Weight 109.724 kg Results CBC & Chem 7: 11/08/24 01:57 11/08/24 01:57 Labs: Abnormal Lab Results - Last 24 Hours (Table) 11/08/24 11/08/24 11/08/24 Range/Units 01:57 01:57 02:09 RBC 3.79 L (3.80-5.40) m/uL Hgb 10.3 L (11.4-16.0) gm/dL Hct 33.3 L (34.0-46.0) % MCHC 30.8 L (31.0-37.0) g/dL RDW 16.8 H (11.5-15.5) % Total Protein 6.0 L (6.3-8.2) g/dL Stool Occult Blood Positive H (Negative) Serum Alcohol 405 H* mg/dL Assessment and Plan Time with Patient: Greater than 30
[2024-11-08] MEDS: hydrALAZINE HCL 25 MG TAB PO STA (16:59)
[2024-11-09 07:58] LABS: Anisocytosis Slight; Basophils % (A) 0 %; Eosinophils # (A) 0.1 k/uL (0-0.7); Eosinophils % (A) 2 %; HCT 34.3 % (34.0-46.0); HGB 10.5 gm/dL (11.4-16.0); Hypochromasia Marked; Lymphocytes # (A) 0.8 k/uL (1.0-4.8); Lymphocytes % (A) 19 %; MCH 27.4 pg (25.0-35.0); MCHC 30.7 g/dL (31.0-37.0); MCV 89.2 fL (80.0-100.0); Mean Platelet Volume 7.9; Monocytes # (A) 0.4 k/uL (0-1.0); Monocytes % (A) 11 %; Neutrophils # (A) 2.8 k/uL (1.3-7.7); Neutrophils % (A) 66 %; Platelet Count 171 k/uL (150-450); RBC 3.84 m/uL (3.80-5.40); RDW 16.4 % (11.5-15.5); WBC 4.2 k/uL (3.8-10.6)
--- NOTE | 2024-11-09 10:35 | P.PN ---
Subjective Progress Note Date: 11/09/24 Principal diagnosis: Alcohol intoxication, possible GI bleed This a pleasant 59-year-old female who had presented to the emergency department yesterday after sustaining a fall and complaining of head and neck pain. Past medical history includes history of deep vein thrombosis on Xarelto, hypertension, bowel resection with colostomy bag secondary to an injury, and daily alcohol abuse. She states she has been told that she has the beginning of the liver cirrhosis or liver disease. Patient states that she is a daily drinker drinks 7-10 beers daily. Patient was intoxicated on admission with a blood alcohol level 405. Patient denies any abdominal pain, nausea or vomiting. She denies any hematemesis or coffee-ground emesis denies any blood in her stool or black stool. Patient has a positive occult stool gastroenterology was consulted for GI bleed. Patient denies knowledge of any recent blood in her stool or black stool. States she had a EGD and colonoscopy about 3 years ago in the [facility], however no reports are available. WBC 3.8 hemoglobin 10.3 hematocrit 33 platelet count 189,000 INR 1.0 liver enzymes unremarkable. Stool occult blood positive. 11/09/2024 Patient is seen and examined today as a follow-up. She remains in the emergency department awaiting a bed. She is currently having a clear liquid diet. She is denying any abdominal pain, nausea or vomiting. Patient appears quite shaky. She denies any blood in her colostomy bag. Hemoglobin stable at 10.5 platelet count 171,000 Objective - Vital Signs Vital signs: Vital Signs Temp 98.2 F 11/08/24 07:43 Pulse 80 11/09/24 06:40 Resp 18 11/09/24 06:40 BP 154/97 11/09/24 06:40 Pulse Ox 94 L 11/09/24 03:08 FiO2 Intake & Output 11/08/24 11/09/24 11/09/24 18:59 06:59 18:59 Output Total 1300 500 Balance -1300 -500 Output: Urine 500 Female - External 500 Post Void Residual 1300 - Exam General appearance: The patient is alert, oriented, appears in no acute distress. Patient is shaky with tremors. HET: Head is normocephalic and atraumatic. Conjunctiva pink. Sclera anicteric. Neck: Supple without lymphadenopathy. Abdomen: Soft, nontender, nondistended. Colostomy bag with soft brown stool. Surrounding skin with some mild erythema. Extremities: Normal skin color and turgor. No pedal edema Skin: No rashes, no jaundice Neurological: No focal deficits. Alert and oriented. - Labs CBC & Chem 7: 11/09/24 07:41 11/08/24 01:57 Labs: Abnormal Lab Results - Last 24 Hours (Table) 11/09/24 Range/Units 07:41 Hgb 10.5 L (11.4-16.0) gm/dL MCHC 30.7 L (31.0-37.0) g/dL RDW 16.4 H (11.5-15.5) % Lymphocytes # 0.8 L (1.0-4.8) k/uL Assessment and Plan (1) Chronic anemia Narrative/Plan: 59-year-old female with alcohol abuse disorder who drinks daily came in int oxicated after recent fall. She is on Xarelto for history of DVT and has a colostomy bag secondary to a bowel resection from an injury according to the patient. An occult stool was obtained that was positive and gastroenterology consulted. Colostomy with soft brown stool. Patient has mild anemia likely secondary to underlying liver disease. Reviewing previous labs patient has had chronic anemia. Reported recent EGD colonoscopy about 3 years ago. Hold Xarelto at this time. Will treat with Protonix for GI prophylaxis. Will continue to monitor for blood in stool. Current Visit: Yes Status: Acute Code(s): D64.9 - ANEMIA, UNSPECIFIED SNOMED Code(s): 763309288 (2) Occult blood positive stool Narrative/Plan: Occult positive stool likely positive secondary to bleeding from edge of stoma secondary to irritation. Stool is normal soft brown color. Hemoglobin stable, unlikely GI bleed. No plans for endoscopic evaluation. Current Visit: Yes Status: Acute Code(s): R19.5 - OTHER FECAL ABNORMALITIES SNOMED Code(s): 72458241 (3) Fall Current Visit: No Status: Acute Code(s): W19.XXXA - UNSPECIFIED FALL, INITIAL ENCOUNTER SNOMED Code(s): 9010899 (4) Alcohol use disorder, severe, dependence Current Visit: No Status: Chronic Priority: High Code(s): F10.20 - ALCOHOL DEPENDENCE, UNCOMPLICATED SNOMED Code(s): 289758371 (5) Alcohol intoxication Current Visit: No Status: Resolved Priority: Low Code(s): F10.929 - ALCOHOL USE, UNSPECIFIED WITH INTOXICATION, UNSPECIFIED SNOMED Code(s): 07024261 Plan: 1. Continue symptomatic and supportive care 2. May resume anticoagulation 3. Protonix 40 mg daily for GI prophylaxis 4. Consult to ostomy nurse, change ostomy bag 5. Recommend alcohol abstinence 6. Patient may have regular diet 7. Likely occult stool positive was secondary to irritated stoma with bleeding and around the edges. 8. No plans on endoscopic evaluation 9. Recommend outpatient follow-up with gastroenterology for alcohol liver disease Thank you for this consultation, patient is cleared from gastroenterology for discharge. We will sign off at this time. Dr. Leola Potts I agree with the dictator's note, documented as a scribe by Fatoumata Jurado.
--- NOTE | 2024-11-09 21:15 | P.PN ---
Subjective Progress Note Date: 11/09/24 This is a 59-year-old female history of , hypertension, chronic alcoholism, colostomy bag with frequent admissions for alcohol intoxication and withdrawal. Patient was discharged from the hospital 3 weeks ago where she was admitted for acute alcohol intoxication with withdrawal as well as a mechanical fall. Does follow with [facility] on an outpatient basis and they do come to her house to perform breathalyzer. Patient is supposed to be on Xarelto for DVT history although she has been noncompliant with this medication. Patient comes into the hospital this admission after a fall at home she states that she had fallen and struck her head has been drinking lost balance from tripping over her cat and fell. Patient has neck pain and bilateral rib pain from the fall initially although today states she is feeling well. Patient wants to quit alcohol, has had multiple hospitalizations for intoxication and withdrawal and has gone to rehab many times in the past. Patient admits to drinking 6 to 8 beers per day as well as 2 mixed drinks of vodka daily. Chest x-ray reveals prominent central vascular and interstitial markings suggestion basilar congestion and no bronchovascular crowding. No overt edema or acute focal infiltrate is identified. There are no acute traumatic findings. And cervical spine CT reveal multilevel degenerative disc review of and facet arthrosis throughout the cervical spine with no acute fracture or subluxation seen. EKG reveals normal sinus rhythm with a heart rate of [address] or T wave changes evident. Blood work reveals a white blood cell count 3.8 hemoglobin 10.3 platelet count 189 her electrolytes within normal limits exception of a total protein level of 6.0. Patient was found to have a serum alcohol level of 405 and a positive occult blood. There is scant amount of bright red blood in the ostomy bag with limited amt of soft formed brown stool. Was admitted to the hospital under internal medicine with a consult to gastroenterology for acute GI bleeding. Patient is currently on a clear liquid diet. Patient had normal saline at 75 mL/h. Started on Ativan CIWA protocol as well as Librium. 11/09/2024 Patient is evaluated today in the ER pending bed on the medical floor. Does not appear to be having significant alcohol withdrawal at this time. Has been continued on oral librium. No signs of acute GI bleeding. The blood in the ostomy bag is likely from the stoma. Hemoglobin stable. Pending PT evaluation and discharge planning. REVIEW OF SYSTEMS: CONSTITUTIONAL: No fever, no malaise, no fatigue. HEENT: No recent visual problems or hearing problems. Denied any sore throat. CARDIOVASCULAR: No chest pain, orthopnea, PND, no palpitations, no syncope. PULMONARY: No shortness of breath, no cough, no hemoptysis. GASTROINTESTINAL: No diarrhea, no nausea, no vomiting, no abdominal pain. NEUROLOGICAL: No headaches, no weakness, no numbness. PHYSICAL EXAMINATION: GENERAL: The patient is alert and oriented x3, not in any acute distress. Well developed, well nourished. HEENT: Pupils are round and equally reacting to light. EOMI. No scleral icterus. No conjunctival pallor. Normocephalic, atraumatic. No pharyngeal erythema. No thyromegaly. CARDIOVASCULAR: S1 and S2 present. No murmurs, rubs, or gallops. PULMONARY: Chest is clear to auscultation, no wheezing or crackles. ABDOMEN: Soft, nontender, nondistended, normoactive bowel sounds. No palpable organomegaly. LLQ ostomy bag in place. MUSCULOSKELETAL: No joint swelling or deformity. EXTREMITIES: No cyanosis, clubbing, or pedal edema. NEUROLOGICAL: Gross neurological examination did not reveal any focal deficits. SKIN: No rashes. Assessment and plan Acute alcohol intoxication Traumatic fall secondary to above Positive stool occult History of hypertension History of DVT noncompliant with Xarelto therapy Hx of bowel resection and colostomy bag in 2012 patient required silver nitrate cautery secondary to bleeding at the stoma site Anxiety/depression Chronic alcoholism GI prophylaxis DVT prophylaxis Full code Plan GI consultation patient currently on protonix BID Continue IV Ativan CIWA protocol and monitor for any signs of acute alcohol w ithdrawal Librium has been added 25 mg tid scheduled Resume home medications PT/OT consultation and social work Patient to follow up with Dr Vicente on follow up for the colostomy patient states she was supposed to have a reversal Counseled extensively on the importance of quitting alcohol and patient verbalized understanding and does want to quit alcohol. Monitor CBC Pending PT evaluation and social work for discharge planning. Patient significantly weak and unable to get up from the bed. May need YING. Discharge delayed due to patient holding in the ER and PT not available for evaluation. The impression and plan of care has been dictated by Amita Nelson, Nurse Practitioner as directed. Dr. Erin MD I have performed a history and physical examination and medical decision making of this patient, discussed the same with the dictator, and agree with the dictators assessment and plan as written, documented as a scribe. Based on total visit time, I have performed more than 50% of this visit. Objective - Vital Signs Vital signs: Vital Signs Temp 99.5 F 11/09/24 19:57 Pulse 97 11/09/24 19:57 Resp 15 11/09/24 19:57 BP 163/102 11/09/24 19:57 Pulse Ox 95 11/09/24 19:57 FiO2 Intake & Output 11/09/24 11/09/24 11/10/24 06:59 18:59 06:59 Output Total 1300 500 Balance -1300 -500 Output: Urine 500 Female - External 500 Post Void Residual 1300 - Labs CBC & Chem 7: 11/09/24 07:41 11/08/24 01:57 Labs: Abnormal Lab Results - Last 24 Hours (Table) 11/09/24 Range/Units 07:41 Hgb 10.5 L (11.4-16.0) gm/dL MCHC 30.7 L (31.0-37.0) g/dL RDW 16.4 H (11.5-15.5) % Lymphocytes # 0.8 L (1.0-4.8) k/uL Assessment and Plan Time with Patient: Less than 30
[2024-11-09] MEDS: lisinopriL 10 MG TAB PO SCH (21:35)
[2024-11-10] MEDS: LORazepam 2 MG/ML INJ IV PRN (00:24)
[2024-11-10 06:47] VITALS: TEMP 98.9
[2024-11-10 08:32] VITALS: BP 144/87; PULSE 70; RESP 20
--- NOTE | 2024-11-12 21:24 | P.DS ---
Providers Date of admission: 11/08/24 06:07 Attending physician: Marcia Emanuel Primary care physician: Stated None Hospital Course: Final Diagnosis Acute alcohol intoxication Traumatic fall secondary to above Positive stool occult History of hypertension History of DVT noncompliant with Xarelto therapy Hx of bowel resection and colostomy bag in 2012 patient required silver nitrate cautery secondary to bleeding at the stoma site Anxiety/depression Chronic alcoholism GI prophylaxis Discharge Disposition Patient is stable for discharge home. Recommend total alcohol cessation. She is discharged on oral librium taper. Patient to follow up with GI on discharge. Continue all other same home medications. Hospital Course This is a 59-year-old female history of , hypertension, chronic alcoholism, colostomy bag with frequent admissions for alcohol intoxication and withdrawal. Patient was discharged from the hospital 3 weeks ago where she was admitted for acute alcohol intoxication with withdrawal as well as a mechanical fall. Does follow with [facility] on an outpatient basis and they do come to her house to perform breathalyzer. Patient is supposed to be on Xarelto for DVT history although she has been noncompliant with this medication. Patient comes into the hospital this admission after a fall at home she states that she had fallen and struck her head has been drinking lost balance from tripping over her cat and fell. Patient has neck pain and bilateral rib pain from the fall initially although today states she is feeling well. Patient wants to quit alcohol, has had multiple hospitalizations for intoxication and withdrawal and has gone to rehab many times in the past. Patient admits to drinking 6 to 8 beers per day as well as 2 mixed drinks of vodka daily. Chest x-ray reveals prominent central vascular and interstitial markings suggestion basilar congestion and no bronchovascular crowding. No overt edema or acute focal infiltrate is identified. There are no acute traumatic findings. And cervical spine CT reveal multilevel degenerative disc review of and facet arthrosis throughout the cervical spine with no acute fracture or subluxation seen. EKG reveals normal sinus rhythm with a heart rate of [address] or T wave changes evident. Blood work reveals a white blood cell count 3.8 hemoglobin 10.3 platelet count 189 her electrolytes within normal limits exception of a total protein level of 6.0. Patient was found to have a serum alcohol level of 405 and a positive occult blood. There is scant amount of bright red blood in the ostomy bag with limited amt of soft formed brown stool. Was admitted to the hospital under internal medicine with a consult to gastroenterology for acute GI bleeding. Patient is currently on a clear liquid diet. Patient had normal saline at 75 mL/h. Started on Ativan CIWA protocol as well as Librium. No signs of alcohol withdrawal. The suspected GI bleeding has stopped and felt this was from scant bleeding of the stoma site. Patients hemoglobin remains stable at 10.3 and 10.5. Patient to see GI on follow up. Discharge was held over 1 day as patient had difficulty with ambulation. Physical therapy had worked with her and recommended home on discharge. Please see medication reconciliation for a list of current medications. Thank you for allowing us to participate in the care of this patient. The impression and plan of care has been dictated by Amita Nelson, Nurse Practitioner as directed. Dr. Erin MD I have performed a history and physical examination and medical decision making of this patient, discussed the same with the dictator, and agree with the dictators assessment and plan as written, documented as a scribe. Based on total visit time, I have performed more than 50% of this visit. Patient Condition at Discharge: Stable Plan - Discharge Summary New Discharge Prescriptions: New chlordiazePOXIDE HCl [Librium] 25 mg PO DIRECTED 3 Days #6 cap Continue Folic Acid 1 mg PO DAILY #30 tab Thiamine [Vitamin B-1] 100 mg PO DAILY #30 tab Multivitamins, Thera [Multivitamin (formulary)] 1 tab PO DAILY Metoprolol Tartrate [Lopressor] 25 mg PO BID #60 tab Acetaminophen Tab [Tylenol] 650 mg PO Q6HR PRN tab PRN Reason: Fever And/ Or Pain Discharge Medication List Acetaminophen Tab [Tylenol] 650 mg PO Q6HR PRN tab 10/16/24 [Rx] Folic Acid 1 mg PO DAILY #30 tab 10/16/24 [Rx] Metoprolol Tartrate [Lopressor] 25 mg PO BID #60 tab 10/16/24 [Rx] Thiamine [Vitamin B-1] 100 mg PO DAILY #30 tab 10/16/24 [Rx] Multivitamins, Thera [Multivitamin (formulary)] 1 tab PO DAILY 11/08/24 [History] chlordiazePOXIDE HCl [Librium] 25 mg PO DIRECTED 3 Days #6 cap 11/09/24 [Rx] Follow up Appointment(s)/Referral(s): Hailee Franklin [facility] [REFERRING] - 1 Week (Follow-up with gastroenterology for alcohol liver disease) Mala Potts MD [STAFF PHYSICIAN] - 1 Week (GI specialist ) [facility] [NON-STAFF] - None,Stated [Primary Care Provider] - 1-2 days Activity/Diet/Wound Care/Special Instructions: CANNOT Discharge until physical therapy sees and clears Continue oral librium for 3 days as directed 25 mg three times a day for 1 day, take 25 mg twice daily for 1 day, than take 25 mg oral daily. Do NOT drink alcohol while taking librium Need to stop drinking Discharge/Stand Alone Forms: AA Tejinder Delgado, Outpatient Counseling, In Substance Abuse Facilities Discharge Disposition: HOME WITH HOME HEALTH SERVICES
== END 2024-11-10 13:29 | disposition home health service (06) | DRG 897 ==
LOC: SUPCPDRO 01:34 → EC 01:34 → 3SCARD 06:07 → 4SSUR 11-09 18:32
PROVIDERS: ADMIT Hospitalist; ATTEND Hospitalist
DX: F10.229 Alcohol dependence with intoxication, unspecified (principal); K94.01 Colostomy hemorrhage; S09.90XA Unspecified injury of head, initial encounter; K74.60 Unspecified cirrhosis of liver; F32.A Depression, unspecified; I10 Essential (primary) hypertension; D64.9 Anemia, unspecified; K70.9 Alcoholic liver disease, unspecified; T45.516A Underdosing of anticoagulants, initial encounter; F41.9 Anxiety disorder, unspecified; M47.812 Spondylosis without myelopathy or radiculopathy, cervical region; R19.5 Other fecal abnormalities; Z91.128 Patient's intentional underdosing of medication regimen for other reason; Z79.899 Other long term (current) drug therapy; Y90.8 Blood alcohol level of 240 mg/100 ml or more; Z86.718 Personal history of other venous thrombosis and embolism; Z87.891 Personal history of nicotine dependence; Z88.1 Allergy status to other antibiotic agents; Z88.3 Allergy status to other anti-infective agents; W01.0XXA Fall on same level from slipping, tripping and stumbling without subsequent striking against object, initial encounter; Y92.009 Unspecified place in unspecified non-institutional (private) residence as the place of occurrence of the external cause
CPT/HCPCS: 36415; 51702; 51798; 70450; 71045; 72125; 80053; 80320; 82272; 85025; 85610; 96361; 96374; 96375; 96376; 99285

== ENCOUNTER 2024-11-27 18:43 | Emergency (ER) | payer MEDICARE, OTHER ==
[2024-11-27 18:53] VITALS: BP 114/79; PULSE 73; RESP 18; TEMP 97.4
--- NOTE | 2024-11-27 19:15 | ED ---
Alcohol HPI - General Chief Complaint: Alcohol Stated Complaint: ETOH Time Seen by Provider: 11/27/24 18:55 Source: EMS, RN notes reviewed, old records reviewed Mode of arrival: EMS Limitations: no limitations - History of Present Illness Initial Comments: This is a s a 59-year-old female to the ER for evaluation patient comes in for alcohol intoxication, states she fell at home but not on arrival to the ER patient states she feels well and prefers discharge MD Complaint: alcohol intoxication -: minute(s) Previous Visits for Alcohol Intoxication?: Yes Recent Trauma: Yes Associated Symptoms: denies other symptoms Treatments Prior to Arrival: none Chronic Alcohol Use: Yes - Related Data Previous Rx's Medication Instructions Recorded Folic Acid 1 mg PO DAILY 30 Days #30 tab 11/30/24 Multivitamins, Thera [Multivitamin 1 each PO DAILY 30 Days #30 tab 11/30/24 (formulary)] Thiamine [Vitamin B-1] 100 mg PO DAILY 30 Days #30 tab 11/30/24 amLODIPine [Norvasc] 5 mg PO DAILY 30 Days #30 tab 11/30/24 Allergies Allergy/AdvReac Type Severity Reaction Status Date / Time bacitracin Allergy Rash/Hives Verified 11/29/24 17:30 cephalexin [From Keflex] Allergy Itching Verified 11/29/24 17:30 Review of Systems ROS Statement: Those systems with pertinent positive or pertinent negative responses have been documented in the HPI. ROS Other: All systems not noted in ROS Statement are negative. Past Medical History Past Medical History: Deep Vein Thrombosis (DVT), Hypertension Additional Past Medical History / Comment(s): concussion History of Any Multi-Drug Resistant Organisms: None Reported Past Surgical History: Bowel Resection Additional Past Surgical History / Comment(s): jaw surgery, colostomy 01/2023 Past Anesthesia/Blood Transfusion Reactions: No Reported Reaction Past Psychological History: Anxiety, Depression Smoking Status: Former smoker Past Alcohol Use History: Abuse, Daily, Heavy Past Drug Use History: None Reported - Past Family History Father Additional Family Medical History / Comment(s): Spleen CA Mother Family Medical History: COPD Additional Family Medical History / Comment(s): empysema General Exam Limitations: no limitations General appearance: alert, in no apparent distress Head exam: Present: atraumatic, normocephalic, normal inspection Eye exam: Present: normal appearance, PERRL, EOMI. Absent: scleral icterus, conjunctival injection, periorbital swelling ENT exam: Present: normal exam, mucous membranes moist Neck exam: Present: normal inspection. Absent: tenderness, meningismus, lymphadenopathy Respiratory exam: Present: normal lung sounds bilaterally. Absent: respiratory distress, wheezes, rales, rhonchi, stridor Cardiovascular Exam: Present: regular rate, normal rhythm, normal heart sounds. Absent: systolic murmur, diastolic murmur, rubs, gallop, clicks GI/Abdominal exam: Present: soft, normal bowel sounds. Absent: distended, tenderness, guarding, rebound, rigid Extremities exam: Present: normal inspection, full ROM, normal capillary refill. Absent: tenderness, pedal edema, joint swelling, calf tenderness Back exam: Present: normal inspection Neurological exam: Present: alert, oriented X3, CN II-XII intact Psychiatric exam: Present: normal affect, normal mood Skin exam: Present: warm, dry, intact, normal color. Absent: rash Course Vital Signs 11/27/24 18:45 Temperature 97.4 F L Pulse Rate 73 Respiratory 18 Rate Blood Pressure 114/79 O2 Sat by Pulse 96 Oximetry - Reevaluation(s) Reevaluation #1: 11/27/24 22:59 Medical records reviewed Reevaluation #2: 11/27/24 22:59 Patient prefers discharge no evaluation Reevaluation #3: 11/27/24 22:59 Patient informed of results questions answered Reevaluation #4: 11/27/24 22:59 Was pt. sent in by a medical professional or institution (, PA, [employer], urgent care, hospital, or fpc...) When possible be specific @ -no Did you speak to anyone other than the patient for history (EMS, parent, family, police, friend...)? What history was obtained from this source @ -no Did you review nursing and triage notes (agree or disagree)? Why? @ -agree Are old charts reviewed (outside hosp., previous admission, EMS record, old EKG, old radiological studies, urgent care reports/EKG's, fpc records)? Report findings @ -yes Differential Diagnosis (chest pain, altered mental status, abdominal pain women, abdominal pain men, vaginal bleeding, weakness, fever, dyspnea, syncope, headache, dizziness, GI bleed, back pain, seizure, CVA, palpatations, mental health, musculoskeletal)? @ -prior EKG interpreted by me (3pts min.). @ -no X-rays interpreted by me (1pt min.). @ -no CT interpreted by me (1pt min.). @ -no U/S interpreted by me (1pt. min.). @ -no What testing was considered but not performed or refused? (CT, X-rays, U/S, labs)? Why? @ -none What meds were considered but not given or refused? Why? @ -none Did you discuss the management of the patient with other professionals (professionals i.e. Dr., PA, [employer], lab, RT, psych nurse, social work associate, furnace liner, teacher, hospital chief financial officer, rn case manager hospice)? Give summary @ -no Was smoking cessation discussed for >3mins.? @ -no Was critical care preformed (if so, how long)? @ -no Were there social determinants of health that impacted care today? How? (Homelessness, low income, unemployed, alcoholism, drug addiction, transportation, low edu. Level, literacy, decrease access to med. care, retirement, rehab)? @ -none Was there de-escalation of care discussed even if they declined (Discuss DNR or withdrawal of care, Hospice)? DNR status @ -no What co-morbidities impacted this encounter? (DM, HTN, Smoking, COPD, CAD, Cancer, CVA, ARF, Chemo, Hep., AIDS, mental health diagnosis, sleep apnea, morbid obesity)? @ -none Was patient admitted / discharged? Hospital course, mention meds given and route, prescriptions, significant lab abnormalities, going to OR and other pertinent info. @ - 59 female for alcohol intoxication. No acute findings patient can be discharged home Discharge Undiagnosed new problem with uncertain prognosis? @ -no Drug Therapy requiring intensive monitoring for toxicity (Heparin, Nitro, Insulin, Cardizem)? @ -no Were any procedures done? @ -no Diagnosis/symptom? @ -Alcohol intoxication Acute, or Chronic, or Acute on Chronic? @ -Acute Uncomplicated (without systemic symptoms) or Complicated (systemic symptoms)? @ -Complicated Side effects of treatment? @ -no Exacerbation, Progression, or Severe Exacerbation? @ -exacerbation Poses a threat to life or bodily function? How? (Chest pain, USA, SC, pneumonia, PE, COPD, DKA, ARF, appy, cholecystitis, CVA, Diverticulitis, Homicidal, Suicidal, threat to staff... and all critical care pts) @ -yes yes with alcohol abuse Reevaluation #5: Differential Altered Mental Status: Hypoglycemia, DKA, hypercapnia, ETOH, overdose, CO poisoning, trauma, myxedema coma, HTN encephalopathy, infection, encephalitis, psychosis, intercranial hemorrhage, hepatic encephalopathy, meningitis, CVA, this is not meant to be an all-inclusive list Medical Decision Making - Medical Decision Making 59 female for alcohol intoxication. No acute findings patient can be discharged home Disposition Clinical Impression: Alcohol abuse Disposition: HOME SELF-CARE Condition: Fair Instructions (If sedation given, give patient instructions): Alcohol Intoxication (ED) Is patient prescribed a controlled substance at d/c from ED?: No Referrals: None,Stated [Primary Care Provider] - 1-2 days Time of Disposition: 20:00
== END 2024-11-27 20:14 | disposition home or self-care (01) ==
LOC: EC 18:43
DX: F10.129 Alcohol abuse with intoxication, unspecified (principal); Z87.891 Personal history of nicotine dependence; Z88.1 Allergy status to other antibiotic agents
CPT/HCPCS: 99284

== ENCOUNTER 2024-11-28 22:12 | Emergency (ER) | payer MEDICARE, OTHER ==
--- NOTE | 2024-11-28 22:25 | ED ---
General Adult HPI - General Source: patient, EMS Mode of arrival: EMS <Marlon Grier - Last Filed: 11/28/24 22:43> <Jesse Howe - Last Filed: 11/29/24 00:37> - General Chief complaint: Alcohol Stated complaint: ETOH Time Seen by Provider: 11/28/24 22:17 - History of Present Illness Initial comments: Dictation was produced using [employer] dictation software. please excuse any grammatical, word or spelling errors. Chief Complaint: 59-year-old alcoholic female well-known to emergency department presents to the ER after a fall History of Present Illness: Patient 59-year-old female she is an alcoholic. She is well-known to emergency department for multiple visitations usually due to alcohol related issues. Patient most recently was seen yesterday. Patient states that today she fell. She is not quite sure how she fell. She drink a lot of beer and vodka today. Patient denies any pain complaints. States she has been taking her anticoagulation medications as prescribed. The ROS documented in this emergency department record has been reviewed and confirmed by me. Those systems with pertinent positive or negative responses have been documented in the HPI. All other systems are other negative and/or noncontributory. (Marlon Grier) - Related Data Home Medications Medication Instructions Recorded Confirmed Multivitamins, Thera [Multivitamin 1 tab PO DAILY 11/08/24 11/08/24 (formulary)] Previous Rx's Medication Instructions Recorded Acetaminophen Tab [Tylenol] 650 mg PO Q6HR PRN tab 10/16/24 Folic Acid 1 mg PO DAILY #30 tab 10/16/24 Metoprolol Tartrate [Lopressor] 25 mg PO BID #60 tab 10/16/24 Thiamine [Vitamin B-1] 100 mg PO DAILY #30 tab 10/16/24 chlordiazePOXIDE HCl [Librium] 25 mg PO DIRECTED 3 Days #6 cap 11/09/24 Allergies Allergy/AdvReac Type Severity Reaction Status Date / Time bacitracin Allergy Rash/Hives Verified 11/28/24 22:14 cephalexin [From Keflex] Allergy Itching Verified 11/28/24 22:14 Review of Systems ROS Other: All systems not noted in ROS Statement are negative. <Marlon Grier - Last Filed: 11/28/24 22:43> ROS Other: All systems not noted in ROS Statement are negative. <Jesse Howe - Last Filed: 11/29/24 00:37> ROS Statement: Those systems with pertinent positive or pertinent negative responses have been documented in the HPI. Past Medical History Past Medical History: Deep Vein Thrombosis (DVT), Hypertension Additional Past Medical History / Comment(s): concussion History of Any Multi-Drug Resistant Organisms: None Reported Past Surgical History: Bowel Resection Additional Past Surgical History / Comment(s): jaw surgery, colostomy 01/2023 Past Anesthesia/Blood Transfusion Reactions: No Reported Reaction Past Psychological History: Anxiety, Depression Smoking Status: Former smoker Past Alcohol Use History: Abuse, Daily, Heavy Past Drug Use History: None Reported - Past Family History Father Additional Family Medical History / Comment(s): Spleen CA Mother Family Medical History: COPD Additional Family Medical History / Comment(s): empysema <Marlon Grier - Last Filed: 11/28/24 22:43> General Exam <Marlon Grier - Last Filed: 11/28/24 22:43> - General Exam Comments Initial Comments: PHYSICAL EXAM: General Impression: Alert and oriented x3, not in acute distress HEENT: Normocephalic atraumatic, extra-ocular movements intact, pupils equal and reactive to light bilaterally, mucous membranes moist. Cardiovascular: Heart regular rate and rhythm Chest: Able to complete full sentences, no retractions, no tachypnea Abdomen: abdomen soft, non-tender, non-distended, no organomegaly Musculoskeletal: Pulses present and equal in all extremities, no peripheral edema Motor: no focal deficits noted Neurological: CN II-XII grossly intact, no focal motor or sensory deficits noted Skin: Intact with no visualized rashes Psych: Normal affect and mood (Marlon Grier) Course Vital Signs 11/28/24 11/29/24 22:15 00:20 Temperature 98.0 F Pulse Rate 75 76 Respiratory 18 18 Rate Blood Pressure 119/81 102/62 O2 Sat by Pulse 95 97 Oximetry EKG Findings - EKG Comments: EKG Findings:: My EKG interpretation: Ventricular rate 73, sinus rhythm, MD 143, QRS 108, QTc 453. No MD prolongation, no QTC prolongation, no ST or T-wave changes noted. Overall, this EKG is unremarkable <Z[place]trevor[place]ula [place] - Last Filed: 11/28/24 22:43> Medical Decision Making <Marvel[place]ula [place] - Last Filed: 11/28/24 22:43> - Lab Data Result diagrams: 11/28/24 22:33 11/28/24 22:33 <Jesse Howe - Last Filed: 11/29/24 00:37> - Medical Decision Making Was pt. sent in by a medical professional or institution (, PA, SENIOR DATA ANALYST, urgent care, hospital, or senior care...) When possible be specific @ -[No] Did you speak to anyone other than the patient for history (EMS, parent, family, police, friend...)? What history was obtained from this source @ -[No] Did you review nursing and triage notes (agree or disagree)? Why? @ -[I reviewed and agree with nursing and triage notes] Were old charts reviewed (outside hosp., previous admission, EMS record, old EKG, old radiological studies, urgent care reports/EKG's, senior care records)? Report findings @ -[No old charts were reviewed] Differential Diagnosis (chest pain, altered mental status, abdominal pain women, abdominal pain men, vaginal bleeding, musculoskeletal, weakness, fever, dyspnea, syncope, headache, dizziness, GI bleed, back pain, seizure, CVA, palpatations, mental health)? @ -Syncope, head contusion, skull fracture EKG interpreted by me (3pts min.). @ -[None done] X-rays interpreted by me (1pt min.). @ -[None done] CT interpreted by me (1pt min.). @ -[None done] U/S interpreted by me (1pt. min.). @ -[None done] What testing was considered but not performed or refused? (CT, X-rays, U/S, labs)? Why? @ -[None] What meds were considered but not given or refused? Why? @ -[None] Was smoking cessation discussed for >3mins.? @ -[No] Were there social determinants of health that impacted care today? How? ([place] elessness, low income, unemployed, alcoholism, drug addiction, transportation, low edu. Level, literacy, decrease access to med. care, group home, rehab)? @ -[No] Was there de-escalation of care discussed even if they declined (Discuss DNR or withdrawal of care, Hospice)? DNR status @ -[No] What co-morbidities impacted this encounter? (DM, HTN, Smoking, COPD, CAD, Cancer, CVA, ARF, Chemo, Hep., AIDS, mental health diagnosis, sleep apnea, morbid obesity)? @ -[None] Was patient admitted / discharged? Hospital course, mention meds given and route, prescriptions, significant lab abnormalities, going to OR and other pertinent info. @ -59-year-old alcoholic female presents emergency department with fall. Physical examination is benign. Vital signs are stable. Labs and imaging ordered. Patient care signed out to Dr. Arreola at 11 PM (Marlon Grier) Had CT scan of the brain that I interpreted as negative for acute bony injury, negative for acute intracranial hemorrhage, mass effect or midline shift. (Jesse Howe) - Lab Data Lab Results 11/28/24 11/28/24 Range/Units 22:33 22:33 WBC 3.9 (3.8-10.6) k/uL RBC 4.46 (3.80-5.40) m/uL Hgb 11.5 (11.4-16.0) gm/dL Hct 39.6 (34.0-46.0) % MCV 88.8 (80.0-100.0) fL MCH 25.9 (25.0-35.0) pg MCHC 29.2 L (31.0-37.0) g/dL RDW 16.1 H (11.5-15.5) % Plt Count 415 D (150-450) k/uL MPV 7.4 Neutrophils % 41 % Lymphocytes % 47 % Monocytes % 4 % Eosinophils % 4 % Basophils % 0 % Neutrophils # 1.6 (1.3-7.7) k/uL Lymphocytes # 1.8 (1.0-4.8) k/uL Monocytes # 0.2 (0-1.0) k/uL Eosinophils # 0.1 (0-0.7) k/uL Basophils # 0.0 (0-0.2) k/uL Hypochromasia Moderate Anisocytosis Slight Sodium 144 (137-145) mmol/L Potassium 4.1 (3.5-5.1) mmol/L Chloride 107 (98-107) mmol/L Carbon Dioxide 23 (22-30) mmol/L Anion Gap 14 mmol/L BUN 5 L (7-17) mg/dL Creatinine 0.54 (0.52-1.04) mg/dL Est GFR (CKD-EPI)AfAm >90 (>60 ml/min/1.73 sqM) Est GFR (CKD-EPI)NonAf >90 (>60 ml/min/1.73 sqM) Glucose 79 (74-99) mg/dL Calcium 8.3 L (8.4-10.2) mg/dL Total Bilirubin 0.5 (0.2-1.3) mg/dL AST 33 (14-36) U/L ALT 19 (4-34) U/L Alkaline Phosphatase 64 (38-126) U/L Total Protein 6.5 (6.3-8.2) g/dL Albumin 3.9 (3.5-5.0) g/dL Disposition <Marlon Grier - Last Filed: 11/28/24 22:43> Is patient prescribed a controlled substance at d/c from ED?: No <Jesse Howe - Last Filed: 11/29/24 00:37> Clinical Impression: Head injury, Fall, Alcohol intoxication Disposition: HOME SELF-CARE Condition: Fair Instructions (If sedation given, give patient instructions): Alcohol Int oxication (ED), Head Injury (ED) Referrals: None,Stated [Primary Care Provider] - 1-2 days
[2024-11-28 22:50] LABS: Anisocytosis Slight; Basophils % (A) 0 %; Eosinophils # (A) 0.1 k/uL (0-0.7); Eosinophils % (A) 4 %; HCT 39.6 % (34.0-46.0); HGB 11.5 gm/dL (11.4-16.0); Hypochromasia Moderate; Lymphocytes # (A) 1.8 k/uL (1.0-4.8); Lymphocytes % (A) 47 %; MCH 25.9 pg (25.0-35.0); MCHC 29.2 g/dL (31.0-37.0); MCV 88.8 fL (80.0-100.0); Mean Platelet Volume 7.4; Monocytes # (A) 0.2 k/uL (0-1.0); Monocytes % (A) 4 %; Neutrophils # (A) 1.6 k/uL (1.3-7.7); Neutrophils % (A) 41 %; Platelet Count 415 k/uL (150-450); RBC 4.46 m/uL (3.80-5.40); RDW 16.1 % (11.5-15.5); WBC 3.9 k/uL (3.8-10.6)
[2024-11-28 22:57] LABS: ALT 19 U/L (4-34); AST 33 U/L (14-36); African American GFR (CKD) >90 (>60 ml/min/1.73 sqM); Albumin 3.9 g/dL (3.5-5.0); Alkaline Phosphatase 64 U/L (38-126); Anion Gap 14 mmol/L; Blood Urea Nitrogen 5 mg/dL (7-17); Calcium 8.3 mg/dL (8.4-10.2); Carbon Dioxide 23 mmol/L (22-30); Chloride 107 mmol/L (98-107); Glucose 79 mg/dL (74-99); Non-African American GFR(CKD) >90 (>60 ml/min/1.73 sqM); Potassium 4.1 mmol/L (3.5-5.1); Sodium 144 mmol/L (137-145); Total Bilirubin 0.5 mg/dL (0.2-1.3); Total Protein 6.5 g/dL (6.3-8.2)
--- NOTE | 2024-11-29 00:27 | CT ---
EXAM: CT Head Without Intravenous Contrast CLINICAL HISTORY: ITS.REASON CT Reason: fall TECHNIQUE: Axial computed tomography images of the head/brain without intravenous contrast. CTDI is 45.2 mGy and DLP is 1155 mGy-cm. This CT exam was performed using one or more of the following dose reduction techniques: automated exposure control, adjustment of the mA and/or kV according to patient size, and/or use of iterative reconstruction technique. COMPARISON: No relevant prior studies available. FINDINGS: Brain: Age-related cerebral volume loss. Periventricular and subcortical white matter hypoattenuation, consistent with chronic microangiopathy. No acute intracranial hemorrhage. No midline shift or mass effect. Ventricles: Unremarkable. No ventriculomegaly. Bones/joints: Unremarkable. No acute fracture. Soft tissues: Unremarkable. Sinuses: Unremarkable as visualized. No acute sinusitis. Mastoid air cells: Unremarkable as visualized. No mastoid effusion. IMPRESSION: No acute intracranial hemorrhage. No midline shift or mass effect. EXAM: CT Cervical Spine Without Intravenous Contrast CLINICAL HISTORY: ITS.REASON CT Reason: fall TECHNIQUE: Axial computed tomography images of the cervical spine without intravenous contrast. CTDI is 14.3 mGy and DLP is 433.9 mGy-cm. This CT exam was performed using one or more of the following dose reduction techniques: automated exposure control, adjustment of the mA and/or kV according to patient size, and/or use of iterative reconstruction technique. COMPARISON: No relevant prior studies available. FINDINGS: The vertebral body heights are maintained. The craniocervical junction is intact. The atlanto-dens interval is maintained. The dens is intact. There is no spondylolisthesis. Multilevel cervical spondylosis and degenerative disc disease. Straightening of the cervical lordosis. The unenhanced neck soft tissues are grossly unremarkable. The visualized lung apices are grossly clear. IMPRESSION: No acute fracture or subluxation of the cervical spine.
[2024-11-29 00:52] VITALS: BP 110/77; PULSE 81; RESP 16; TEMP 98.6
== END 2024-11-29 00:51 | disposition home or self-care (01) ==
LOC: EC 22:12
DX: S09.90XA Unspecified injury of head, initial encounter (principal); F10.129 Alcohol abuse with intoxication, unspecified; Z87.891 Personal history of nicotine dependence; Z88.1 Allergy status to other antibiotic agents; Z88.8 Allergy status to other drugs, medicaments and biological substances; W19.XXXA Unspecified fall, initial encounter
CPT/HCPCS: 36415; 70450; 72125; 80053; 85025; 93005; 99285

== ENCOUNTER 2024-11-29 13:55 | Observation (INO) | payer MEDICARE, OTHER ==
[2024-11-29] MEDS ORDERED: LORazepam 2 MG/ML INJ IV PRN ×2 (14:31)
--- NOTE | 2024-11-29 14:59 | CT ---
EXAMINATION TYPE: CT brain cspine wo con CT DLP: 1418.6 mGycm, Automated exposure control for dose reduction was used. DATE OF EXAM: 11/29/2024 2:46 PM COMPARISON: CT brain 10/15/2024, 06/23/2024, CT Brain and cspine 06/13/2024, 06/06/2024. CLINICAL INDICATION:Female, 59 years old with history of fall; Code coag. Fall on thinners., pain TECHNIQUE: Brain: Multiple axial CT images of the brain were obtained without IV contrast. Cspine: Axial CT images from the skull base to the inferior aspect of T2 we obtained without intraven ous contrast. Coronal and sagittal reformatted images were also reviewed. FINDINGS: Brain: Extra-axial spaces: No abnormal extra-axial fluid collections. Ventricular system: Within normal limits Cerebral parenchyma: No acute intraparenchymal hemorrhage or mass effect. The turner-white junction is well differentiated. Scattered hypoattenuating areas are seen within the periventricular white matte r. Cerebellum: Unremarkable. Mass effect: No evidence of midline shift. Intracranial vasculature: unremarkable Soft tissues: Normal. Calvarium/osseous structures: No depressed skull fracture. Postsurgical changes of the right mandible with fixation screws. Paranasal sinuses and mastoid air cells: The mastoid air cells are clear. Mild mucosal thickening of the inferior bilateral maxillary sinuses with right greater than left. The remaining paranasal sinuse s are clear. Visualized orbits: Bilateral aphakia Cervical spine: Fracture: None. Osseous structures: Multilevel anterior osteophytosis with disc space narrowing and endplate sclerosi s. Vertebral alignment: Within normal limits. Spinal canal/Neural Foramina: No evidence of significant spinal canal narrowing. No evidence for sign ificant neural foraminal stenosis. Neck soft tissues: Prevertebral soft tissues are within normal limits. Other: The airway is patent. The lung apices are clear. IMPRESSION: 1. No acute intracranial process. 2. Nonspecific white matter changes, likely secondary to chronic small vessel ischemic disease. 3. No evidence of cervical spine fracture. 4. Mild multilevel degenerative disc disease. [facility], , 11/29/2024 2:57 PM
[2024-11-29] MEDS: SODIUM CHLORIDE 0.9% 1,000 ML IV ONE (15:18)
[2024-11-29] MEDS: THIAMINE 100 MG/ML 2 ML VIAL IM STA (15:18)
--- NOTE | 2024-11-29 16:03 | XR ---
EXAMINATION TYPE: XR pelvis AP view DATE OF EXAM: 11/29/2024 3:42 PM COMPARISON: None. CLINICAL INDICATION: Female, 59 years old with history of fall, pain TECHNIQUE: XR pelvis AP view views were obtained FINDINGS: No evidence for fracture, dislocation or bony lesion. Joint spaces are well-preserved. S I joints appear symmetric. IMPRESSION: No acute fracture or dislocation seen. [facility], , 11/29/2024 4:01 PM
[2024-11-29 16:27] LABS: Basophils % (A) 0 %; Eosinophils # (A) 0.1 k/uL (0-0.7); Eosinophils % (A) 2 %; HCT 36.1 % (34.0-46.0); HGB 11.3 gm/dL (11.4-16.0); Hypochromasia Marked; Lymphocytes # (A) 1.5 k/uL (1.0-4.8); Lymphocytes % (A) 35 %; MCH 26.8 pg (25.0-35.0); MCHC 31.2 g/dL (31.0-37.0); MCV 85.8 fL (80.0-100.0); Mean Platelet Volume 6.9; Monocytes # (A) 0.2 k/uL (0-1.0); Monocytes % (A) 4 %; Neutrophils # (A) 2.4 k/uL (1.3-7.7); Neutrophils % (A) 56 %; Platelet Count 375 k/uL (150-450); RBC 4.21 m/uL (3.80-5.40); RDW 15.9 % (11.5-15.5); WBC 4.2 k/uL (3.8-10.6)
--- NOTE | 2024-11-29 16:29 | XR ---
EXAMINATION TYPE: XR chest 1V portable DATE OF EXAM: 11/29/2024 3:42 PM COMPARISON: 11/08/2024 CLINICAL INDICATION: Female, 59 years old with history of fall, Post Op CABG TECHNIQUE: Single view of the chest is submitted. FINDINGS: Endotracheal tube, NG tube, SG catheter, mediastianal drains and chest tubes are appropriately placed . Post operative changes of CABG. No sizeable pneumothorax. Scattered Pleural-parencymal opacities may reflect atelectasis. The heart is not enlarged. IMPRESSION: 1. Post operative changes of CABG. [facility], , 11/29/2024 4:27 PM
[2024-11-29 16:35] LABS: Carbon Dioxide 22 mmol/L (22-30); Chloride 105 mmol/L (98-107); Glucose 62 mg/dL (74-99); Potassium 4.6 mmol/L (3.5-5.1); Sodium 142 mmol/L (137-145)
[2024-11-29 16:36] LABS: ALT 18 U/L (4-34); AST 36 U/L (14-36); African American GFR (CKD) >90 (>60 ml/min/1.73 sqM); Albumin 3.9 g/dL (3.5-5.0); Alkaline Phosphatase 51 U/L (38-126); Amylase 41 U/L (30-110); Anion Gap 15 mmol/L; Blood Urea Nitrogen 6 mg/dL (7-17); Calcium 8.3 mg/dL (8.4-10.2); Lipase 104 U/L (23-300); Non-African American GFR(CKD) >90 (>60 ml/min/1.73 sqM); Total Bilirubin 0.7 mg/dL (0.2-1.3); Total Protein 6.5 g/dL (6.3-8.2)
[2024-11-29 16:38] LABS: Influenza A Not Detected (Not Detectd); Influenza B Not Detected (Not Detectd); RSV Not Detected (Not Detectd)
[2024-11-29 16:40] LABS: Prothrombin Time 11.1 sec (10.0-12.5)
[2024-11-29 17:08] LABS: Alcohol 359 mg/dL
[2024-11-29] MEDS ORDERED: NALOXONE 0.4 MG/ML 1 ML VIAL IV PRN (17:16)
--- NOTE | 2024-11-29 17:19 | ED ---
General Adult HPI - General Chief complaint: Alcohol Stated complaint: ETOH Time Seen by Provider: 11/29/24 14:30 Source: patient, RN notes reviewed, old records reviewed Mode of arrival: EMS - History of Present Illness Initial comments: Patient is a 59-year-old female who was brought in by family as well as EMS over concern for alcohol intoxication as well as need for psychiatric evaluation and concern that she may harm herself. Patient was petition by family. She was seen here last night for possible striking her head while intoxicated. Unknown loss of consciousness. Workup at that time unremarkable and patient was discharged home. Presents with similar complaints. Unknown loss of consciousness. States she did strike her head. States she has been on Xarelto for DVT. Denies any chest pain or abdominal pain. Denies any back pain. Denies any significant headache. Does endorse a significant amount of alcohol use. Presents for further evaluation at this time. States she has been feeling more depressed but declines to discuss suicidal ideations with me. Denies any hallucinations. - Related Data Home Medications Medication Instructions Recorded Confirmed No Known Home Medications 11/29/24 11/29/24 Allergies Allergy/AdvReac Type Severity Reaction Status Date / Time bacitracin Allergy Rash/Hives Verified 11/29/24 17:30 cephalexin [From Keflex] Allergy Itching Verified 11/29/24 17:30 Review of Systems ROS Statement: Those systems with pertinent positive or pertinent negative responses have been documented in the HPI. Review of Systems: CONST: Denies fever EYES: Denies blurry vision ENT: Denies nasal congestion C/V: Denies Chest pain RESP: Denies shortness of breath GI: Denies abdominal pain : Denies dysuria SKIN: Denies rash. MSK: Denies joint pain. NEURO: Denies headache ROS Other: All systems not noted in ROS Statement are negative. Past Medical History Past Medical History: Deep Vein Thrombosis (DVT), Hypertension Additional Past Medical History / Comment(s): concussion History of Any Multi-Drug Resistant Organisms: None Reported Past Surgical History: Bowel Resection Additional Past Surgical History / Comment(s): jaw surgery, colostomy 01/2023 Past Anesthesia/Blood Transfusion Reactions: No Reported Reaction Past Psychological History: Anxiety, Depression Smoking Status: Former smoker Past Alcohol Use History: Abuse, Daily, Heavy Past Drug Use History: None Reported - Past Family History Father Additional Family Medical History / Comment(s): Spleen CA Mother Family Medical History: COPD Additional Family Medical History / Comment(s): empysema General Exam - General Exam Comments Initial Comments: General: Appears in no acute distress. Acutely intoxicated with alcohol HEAD: Normal with no signs of head trauma. Negative Barajas sign. Negative raccoon eyes EYES: PERRLA, EOMI, conjunctiva normal, no discharge. Pupils are 3 mm and equal bilaterally. ENT: Hearing grossly intact, normal oropharynx. RESPIRATORY: Clear breath sounds bilaterally. No wheezes, rales, or rhonchi. C/V: Regular rate and rhythm. S1 and S2 auscultated, no edema, peripheral pulses 2+ and intact throughout ABD: Abd is soft, nontender, nondistended EXT: Normal range of motion, no obvious deformity. Pelvis is stable. No midline cervical, thoracic, lumbar spine tenderness to palpation. SKIN: No rashes or lesions observed on exposed skin. NEURO: Alert and oriented x 4. Cranial nerves II-XII intact. No focal sensory or strength deficits. GCS of 15. NIH of 0. Course Vital Signs 11/29/24 11/29/24 11/29/24 14:01 16:29 18:51 Temperature 97.8 F 98.1 F Pulse Rate 72 92 90 Respiratory 18 19 14 Rate Blood Pressure 131/93 101/68 128/79 O2 Sat by Pulse 96 97 93 L Oximetry Medical Decision Making - Medical Decision Making Was pt. sent in by a medical professional or institution (, PA, SHIP PAINTER HELPER, urgent care, hospital, or custodial...) When possible be specific @ -No Did you speak to anyone other than the patient for history (EMS, parent, family, police, friend...)? What history was obtained from this source @ -Discussed with patient's brother who expressed concern that patient requires psychiatric evaluation over concern that she may hurt herself. He petitioned the patient. Did you review nursing and triage notes (agree or disagree)? Why? @ -I reviewed and agree with nursing and triage notes Were old charts reviewed (outside hosp., previous admission, EMS record, old EKG, old radiological studies, urgent care reports/EKG's, custodial records)? Report findings @ -Reviewed CT imaging from last night which showed no obvious acute injury. Differential Diagnosis (chest pain, altered mental status, abdominal pain women, abdominal pain men, vaginal bleeding, weakness, fever, dyspnea, syncope, headache, dizziness, GI bleed, back pain, seizure, CVA, palpatations, mental health, musculoskeletal)? @ -MDM differential musculoskeletal. EKG interpreted by me (3pts min.). @ -As above X-rays interpreted by me (1pt min.). @ -X-ray, pelvis x-ray negative for any obvious acute injury. CT interpreted by me (1pt min.). @ -CT brain, C-spine negative for any obvious acute injury or process. U/S interpreted by me (1pt. min.). @ -None done What testing was considered but not performed or refused? (CT, X-rays, U/S, labs)? Why? @ -None What meds were considered but not given or refused? Why? @ -None Did you discuss the management of the patient with other professionals (professionals i.e. , PA, SHIP PAINTER HELPER, lab, RT, psych nurse, social work coordinator, powder blender and pourer, teacher, attendance officer, nurse case management)? Give summary @ -Discussed with [facility], Dr. Sawant who accepted the admission. Was smoking cessation discussed for >3mins.? @ -No Was critical care preformed (if so, how long)? @ -Yes, 32 minutes. Were there social determinants of health that impacted care today? How? (Homelessness, low income, unemployed, alcoholism, drug addiction, transportation, low edu. Level, literacy, decrease access to med. care, long term, rehab)? @ -No Was there de-escalation of care discussed even if they declined (Discuss DNR or withdrawal of care, Hospice)? DNR status @ -No What co-morbidities impacted this encounter? (DM, HTN, Smoking, COPD, CAD, Cancer, CVA, ARF, Chemo, Hep., AIDS, mental health diagnosis, sleep apnea, morbid obesity)? @ -Alcohol abuse Was patient admitted / discharged? Hospital course, mention meds given and ro chipewwa, prescriptions, significant lab abnormalities, going to OR and other pertinent info. @ -Patient presents as a code coag. Fall with hitting head. Unknown loss of consciousness. Acting appropriately at this time. Is on Xarelto. Vitals are within acceptable limits. We will obtain CT brain, C-spine as well as chest and pelvis x-ray and labs. Patient was in agreement this plan. Patient was petition by family over concern for psychiatric concerns and possible self-harm and want her to be evaluated. Patient's labs returned remarkable for an alcohol level of 359. Patient has a lactic acidosis of 5.8 which is likely related to alcohol intoxication. We will continue to monitor. Remainder the labs unremarkable. No concern for infectious process at this time. Glucose is a little bit lower at 62 however patient is actively eating when I go update her. Imaging unremarkable. EKG sh ows no signs of acute ischemia. At this time, patient will be admitted. No evidence of alcohol drawl at this time. Will continue to monitor. She will be medically admitted and then psychiatry consulted. She was in agreement this plan. Placed in [facility] protocol. Discussed case with Dr. Del[facility] who accepted the admission. Undiagnosed new problem with uncertain prognosis? @ -No Drug Therapy requiring intensive monitoring for toxicity (Heparin, Nitro, Insulin, Cardizem)? @ -No Were any procedures done? @ -No Diagnosis/symptom? @ -Alcohol intoxication, encounter for psychiatric evaluation Acute, or Chronic, or Acute on Chronic? @ -Acute Uncomplicated (without systemic symptoms) or Complicated (systemic symptoms)? @ -Complicated Side effects of treatment? @ -No Exacerbation, Progression, or Severe Exacerbation? @ -No Poses a threat to life or bodily function? How? (Chest pain, USA, LA, pneumonia, PE, COPD, DKA, ARF, appy, cholecystitis, CVA, Diverticulitis, Homicidal, Suicidal, threat to staff... and all critical care pts) @ -Potentially, yes - Lab Data Result diagrams: 11/29/24 16:04 11/29/24 16:04 Lab Results 11/29/24 11/29/24 11/29/24 Range/Units 15:21 16:04 16:04 WBC 4.2 (3.8-10.6) k/uL RBC 4.21 (3.80-5.40) m/uL Hgb 11.3 L (11.4-16.0) gm/dL Hct 36.1 (34.0-46.0) % MCV 85.8 (80.0-100.0) fL MCH 26.8 (25.0-35.0) pg MCHC 31.2 (31.0-37.0) g/dL RDW 15.9 H (11.5-15.5) % Plt Count 375 (150-450) k/uL MPV 6.9 Neutrophils % 56 % Lymphocytes % 35 % Monocytes % 4 % Eosinophils % 2 % Basophils % 0 % Neutrophils # 2.4 (1.3-7.7) k/uL Lymphocytes # 1.5 (1.0-4.8) k/uL Monocytes # 0.2 (0-1.0) k/uL Eosinophils # 0.1 (0-0.7) k/uL Basophils # 0.0 (0-0.2) k/uL Hypochromasia Marked PT 11.1 (10.0-12.5) sec INR 1.0 (<1.2) APTT 21.0 L (22.0-30.0) sec Sodium (137-145) mmol/L Potassium (3.5-5.1) mmol/L Chloride (98-107) mmol/L Carbon Dioxide (22-30) mmol/L Anion Gap mmol/L BUN (7-17) mg/dL Creatinine (0.52-1.04) mg/dL Est GFR (CKD-EPI)AfAm (>60 ml/min/1.73 sqM) Est GFR (CKD-EPI)NonAf (>60 ml/min/1.73 sqM) Glucose (74-99) mg/dL Lactic Ac Sepsis Rflx Plasma Lactic Acid Antoine (0.7-2.0) mmol/L Calcium (8.4-10.2) mg/dL Total Bilirubin (0.2-1.3) mg/dL AST (14-36) U/L ALT (4-34) U/L Alkaline Phosphatase (38-126) U/L Total Protein (6.3-8.2) g/dL Albumin (3.5-5.0) g/dL Amylase (30-110) U/L Lipase (23-300) U/L Serum Alcohol mg/dL Influenza Type A (PCR) Not Detected (Not Detectd) Influenza Type B (PCR) Not Detected (Not Detectd) RSV (PCR) Not Detected (Not Detectd) SARS-CoV-2 (PCR) Not Detected (Not Detectd) 11/29/24 11/29/24 11/29/24 Range/Units 16:04 16:04 17:08 WBC (3.8-10.6) k/uL RBC (3.80-5.40) m/uL Hgb (11.4-16.0) gm/dL Hct (34.0-46.0) % MCV (80.0-100.0) fL MCH (25.0-35.0) pg MCHC (31.0-37.0) g/dL RDW (11.5-15.5) % Plt Count (150-450) k/uL MPV Neutrophils % % Lymphocytes % % Monocytes % % Eosinophils % % Basophils % % Neutrophils # (1.3-7.7) k/uL Lymphocytes # (1.0-4.8) k/uL Monocytes # (0-1.0) k/uL Eosinophils # (0-0.7) k/uL Basophils # (0-0.2) k/uL Hypochromasia PT (10.0-12.5) sec INR (<1.2) APTT (22.0-30.0) sec Sodium 142 (137-145) mmol/L Potassium 4.6 (3.5-5.1) mmol/L Chloride 105 (98-107) mmol/L Carbon Dioxide 22 (22-30) mmol/L Anion Gap 15 mmol/L BUN 6 L (7-17) mg/dL Creatinine 0.52 (0.52-1.04) mg/dL Est GFR (CKD-EPI)AfAm >90 (>60 ml/min/1.73 sqM) Est GFR (CKD-EPI)NonAf >90 (>60 ml/min/1.73 sqM) Glucose 62 L (74-99) mg/dL Lactic Ac Sepsis Rflx Y Plasma Lactic Acid Antoine 5.8 H* (0.7-2.0) mmol/L Calcium 8.3 L (8.4-10.2) mg/dL Total Bilirubin 0.7 (0.2-1.3) mg/dL AST 36 (14-36) U/L ALT 18 (4-34) U/L Alkaline Phosphatase 51 (38-126) U/L Total Protein 6.5 (6.3-8.2) g/dL Albumin 3.9 (3.5-5.0) g/dL Amylase 41 (30-110) U/L Lipase 104 (23-300) U/L Serum Alcohol 359 H* mg/dL Influenza Type A (PCR) (Not Detectd) Influenza Type B (PCR) (Not Detectd) RSV (PCR) (Not Detectd) SARS-CoV-2 (PCR) (Not Detectd) - EKG Data -: EKG Interpreted by Me EKG Comments: 12-lead Electrocardiogram Interpretation Note EKG was reviewed and interpreted by myself. 12-lead ECG performed at 1533 is interpreted by me as revealing normal sinus rhythm at a rate of 87 beats per minute. [place] is normal. AK interval is 150 ms, QRS durations 106 ms, QTc is 454 ms. There were no ST or T wave abnormalities to suggest myocardial ischemia or injury. R wave progression across the precordium was satisfactory. By my interpretation this EKG is non-diagnostic for acute ischemia. Critical Care Time Critical Care Time: Yes Total Critical Care Time: 32 Disposition Clinical Impression: Alcohol intoxication, Encounter for psychiatric assessment Disposition: ADMITTED IP TO THIS HOSP Condition: Stable Time of Disposition: 17:19
[2024-11-29] MEDS: SODIUM CHLORIDE 0.9% 1,000 ML IV SCH (17:24)
--- NOTE | 2024-11-29 18:04 | P.HPIM ---
History of Present Illness H&P Date: 11/29/24 59 year old F with EtOH abuse and Depression presents to the ED after slipping on a rug and falling, hitting her head. She denies any loss of consciousness. She currently reports no complaints. Drinks 1/2L vodka daily. Last drink this morning. She denies any headache, lower extremity edema, nausea or vomiting, fever or chills, cough, chest pain, shortness of breath, palpitations, changes in urination or bowel habits. Her family has petitioned her for alcoholism. In the ED she underwent extensive evaluation. BP 131/93, HR 72, T 97.8F, RR 18, 96% on RA. CBC, Coag panel, CMP significant for Hg 11.3, APTT 21, BUN 6, glu 62, Ca 8.3. Amylase and Lipase neg. COVID, RSV, Flu neg. EtOH 359. Lactic acid 5.8. CT head/C-spine, CXR, Pelvic XR no acute process. Patient is admitted for further workup and management. General: non toxic, no distress, appears at stated age Derm: warm, dry Head: atraumatic, normocephalic, symmetric Mouth: no lip lesion, mucus membranes moist Cardiovascular: S1S2 reg, no murmur Lungs: Clear to auscultation bilaterally, no rales , no accessory muscle use Ext: no gross muscle atrophy, no edema, no contractures Neuro: no focal neuro deficits Psych: Alert and oriented. Based on my assessment of this patient, this patient meets a high complexity level of care. Mechanical Fall with head trauma: Fall precautions. PT and OT consult. Alcohol intoxication: CIWA protocol with Ativan PRN per scale. Lactic acidosis: Likely due to chronic EtOH use. Status post 1L NS bolus. Continue NS at 75 cc/hr. Trend until negative. Family petitioned for alcohol abuse. Patient denies SI/HI/AH/VH. Psychiatry consulted. CODE STATUS: FULL CODE. DVT Prophylaxis: Lovenox SQ. GI Prophylaxis: Designated medical POA if patient is not able to make medical decisions for themselves: I have reviewed the following teamcenter consultant notes: ED note. I have reviewed the results of the following tests: As above. I have ordered the following tests: As above. I have discussed the care of this patient with the following independent historian: YARI. I have independently interpreted the following test below: I have discussed the management of this patient with the following physician: Past Medical History Past Medical History: Deep Vein Thrombosis (DVT), Hypertension Additional Past Medical History / Comment(s): concussion History of Any Multi-Drug Resistant Organisms: None Reported Past Surgical History: Bowel Resection Additional Past Surgical History / Comment(s): jaw surgery, colostomy 01/2023 Past Anesthesia/Blood Transfusion Reactions: No Reported Reaction Past Psychological History: Anxiety, Depression Smoking Status: Former smoker Past Alcohol Use History: Abuse, Daily, Heavy Past Drug Use History: None Reported - Past Family History Father Additional Family Medical History / Comment(s): Spleen CA Mother Family Medical History: COPD Additional Family Medical History / Comment(s): empysema Medications and Allergies Home Medications Medication Instructions Recorded Confirmed Type No Known Home Medications 11/29/24 11/29/24 History Allergies Allergy/AdvReac Type Severity Reaction Status Date / Time bacitracin Allergy Rash/Hives Verified 11/29/24 17:30 cephalexin [From Keflex] Allergy Itching Verified 11/29/24 17:30 Physical Exam Vitals: Vital Signs Temp Pulse Resp BP Pulse Ox 11/29/24 16:29 92 19 101/68 97 11/29/24 14:01 97.8 F 72 18 131/93 96 Intake and Output 11/29/24 11/29/24 11/29/24 06:59 14:59 22:59 Other: Weight 108.862 kg Results CBC & Chem 7: 11/29/24 16:04 11/29/24 16:04 Labs: Abnormal Lab Results - Last 24 Hours (Table) 11/29/24 11/29/24 11/29/24 Range/Units 16:04 16:04 16:04 Hgb 11.3 L (11.4-16.0) gm/dL RDW 15.9 H (11.5-15.5) % APTT 21.0 L (22.0-30.0) sec BUN 6 L (7-17) mg/dL Glucose 62 L (74-99) mg/dL Plasma Lactic Acid Antoine (0.7-2.0) mmol/L Calcium 8.3 L (8.4-10.2) mg/dL Serum Alcohol 359 H* mg/dL 11/29/24 Range/Units 16:04 Hgb (11.4-16.0) gm/dL RDW (11.5-15.5) % APTT (22.0-30.0) sec BUN (7-17) mg/dL Glucose (74-99) mg/dL Plasma Lactic Acid Antoine 5.8 H* (0.7-2.0) mmol/L Calcium (8.4-10.2) mg/dL Serum Alcohol mg/dL
[2024-11-30] MEDS: LORazepam 2 MG/ML INJ IV PRN (00:30)
[2024-11-30 05:44] LABS: Basophils % (A) 0 %; Eosinophils # (A) 0.1 k/uL (0-0.7); Eosinophils % (A) 2 %; HCT 34.4 % (34.0-46.0); HGB 10.7 gm/dL (11.4-16.0); Hypochromasia Marked; Lymphocytes # (A) 1.1 k/uL (1.0-4.8); Lymphocytes % (A) 34 %; MCH 26.8 pg (25.0-35.0); MCV 86.4 fL (80.0-100.0); Mean Platelet Volume 7.3; Monocytes # (A) 0.3 k/uL (0-1.0); Monocytes % (A) 8 %; Neutrophils # (A) 1.7 k/uL (1.3-7.7); Neutrophils % (A) 53 %; Platelet Count 338 k/uL (150-450); RBC 3.99 m/uL (3.80-5.40); RDW 15.8 % (11.5-15.5); WBC 3.1 k/uL (3.8-10.6)
[2024-11-30 05:56] LABS: ALT 15 U/L (4-34); AST 28 U/L (14-36); African American GFR (CKD) >90 (>60 ml/min/1.73 sqM); Albumin 3.5 g/dL (3.5-5.0); Alkaline Phosphatase 60 U/L (38-126); Anion Gap 13 mmol/L; Blood Urea Nitrogen 6 mg/dL (7-17); Calcium 8.7 mg/dL (8.4-10.2); Carbon Dioxide 21 mmol/L (22-30); Chloride 104 mmol/L (98-107); Glucose 83 mg/dL (74-99); Non-African American GFR(CKD) >90 (>60 ml/min/1.73 sqM); Sodium 138 mmol/L (137-145); Total Bilirubin 0.9 mg/dL (0.2-1.3); Total Protein 5.9 g/dL (6.3-8.2)
[2024-11-30] MEDS ORDERED: LORazepam 1 MG TAB PO PRN (08:44)
[2024-11-30] MEDS ORDERED: LORazepam 0.5 MG TAB PO PRN (08:44)
[2024-11-30] MEDS: ENOXAPARIN 40 MG/0.4 ML SYRINGE SQ SCH (09:15)
[2024-11-30] MEDS: MULTIVITAMINS, THERA 1 EACH TAB PO SCH (09:15)
[2024-11-30] MEDS: FOLIC ACID 1 MG TAB PO SCH (09:15)
[2024-11-30] MEDS: amLODIPine 5 MG TAB PO SCH (09:15)
--- NOTE | 2024-11-30 13:41 | P.DS ---
Providers Date of admission: 11/29/24 17:18 Expected date of discharge: 11/30/24 Attending physician: Wilman Sawant Primary care physician: Stated None Hospital Course: Discharge Diagnosis: Alcohol withdrawal Alcohol intoxication in active alcoholic upon arrival Lactic acidosis, likely secondary to alcoholic ketoacidosis and chronic daily alcohol abuse. Resolved repeat lactic acid 1.3. Hypertension. Patient with history of hypertension no longer on antihypertensive medications. Patient started on amlodipine 5 mg daily History of bowel resection and colostomy placement. Continue ostomy care. Hospital Course: Patient is a 59-year-old female with a longstanding history of alcohol abuse and depression. She presented to the emergency department on 11/29/2024 status post slip and fall and rug hitting her head. Patient denied any loss of consciousness but did admit to drinking a half a liter of vodka daily and was intoxicated at time of fall. Patient's family also presented to the emergency department and petitioned the patient for alcohol abuse requesting evaluation by psychiatry. Upon arrival to the emergency department patient was found to have serum alcohol level of 359. Lactic acid was also initially elevated at 5.8. CT head and cervical spine was completed negative for acute intracranial process and showed no evidence for cervical spinal fracture. Patient was admitted under services with consultation to psychiatry. [facility] spoke with hospital case management/social work stating patient missed recent court case and has court ordered petition to be placed in inpatient drug and alcohol rehabilitation facility. Discussed with psychiatrist, psychiatry consult canceled as patient is free from any suicidal or homicidal ideations and admits to having a longstanding history of alcohol abuse and per reports from social work/case management patient has a appointed petition for placement in rehab for her alcohol abuse. Patient was informed of reports of court ordered return to drug and alcohol rehabilitation facility and verbalized understanding. States she was just discharged from facility after 1 month stay approximately 6 weeks ago and immediately went back to drinking the day after discharge. Patient is in agreement with returning to rehabilitation facility stating she understands that she has a problem with vodka. Patient is medically sober at this time and current CIWA score is 0. Discussed with case management and RN that patient is medically optimized and cleared for discharge into care of [facility] for court ordered placement in inpatient drug and alcohol rehabilitation facility. Patient medically optimized for discharge to [facility] at this time. Physical exam: Vital signs reviewed and stable. General: Nontoxic, no distress and appears stated age. Derm: Skin warm and dry, normal coloration for ethnicity. Head: Atraumatic, normocephalic and symmetric. Eyes: EOM's intact, no lid lag, and anicteric sclera Mouth: no lip lesions, mucus membranes moist Cardiovascular: regular rate and rhythm with normal S1S2, no murmur, positive posterior tibial pulses bilaterally, and cap refill < 2 seconds. Lungs: Respirations even, regular, and unlabored on room air. Lungs CTA bilaterally, no rhonchi, no rales, no wheezing, and no accessory muscle usage. Abdominal: soft, nontender to palpation, no guarding, no appreciable organomegaly. Colostomy in place, stoma pink. Bag recently changed by RN Ext: ROM intact. No gross muscle atrophy, no edema, no contractures Neuro: Speech clear, face symmetrical and CN II-XII grossly intact with no noted focal neuro deficits Psych: Alert and oriented to person, place, time, and situation. Appropriate and pleasant affect. Patient denies having any suicidal or homicidal ideations, denies having any visual/tactile/auditory hallucinations A total of 33 minutes of time were spent preparing this complex discharge summary. Pt was discharged on 11/30/2024 at 1:37 PM Patient was seen independently by Nurse Practitioner. This document was prepared using [employer] dictation software. Please allow for errors in labor arbitrator hearing office while rare they do occur. Anthony Aiken NP rendered care for this patient independently, reviewed the findings and plan as documented in the note above. I did not physically speak with or examine the patient on this date. Patient Condition at Discharge: Stable Plan - Discharge Summary New Discharge Prescriptions: New Multivitamins, Thera [Multivitamin (formulary)] 1 each PO DAILY 30 Days #30 tab Thiamine [Vitamin B-1] 100 mg PO DAILY 30 Days #30 tab Folic Acid 1 mg PO DAILY 30 Days #30 tab amLODIPine [Norvasc] 5 mg PO DAILY 30 Days #30 tab Discharge Medication List Folic Acid 1 mg PO DAILY 30 Days #30 tab 11/30/24 [Rx] Multivitamins, Thera [Multivitamin (formulary)] 1 each PO DAILY 30 Days #30 tab 11/30/24 [Rx] Thiamine [Vitamin B-1] 100 mg PO DAILY 30 Days #30 tab 11/30/24 [Rx] amLODIPine [Norvasc] 5 mg PO DAILY 30 Days #30 tab 11/30/24 [Rx] Follow up Appointment(s)/Referral(s): [facility] [NON-STAFF] - 1 Week Patient Instructions/Handouts: Abuse of Alcohol (DC), Alcohol Withdrawal (DC), Medical Clearance for Substance Abuse Treatment (DC) Activity/Diet/Wound Care/Special Instructions: Patient medically optimized and cleared for discharge into care of [facility] for court ordered placement to inpatient drug and alcohol rehabilitation facility. Patient does walk with walker at baseline and will require walker for ambulation. Discharge Disposition: OTHER INSTITUTION NOT DEFINED
[2024-11-30 14:04] VITALS: BP 142/92; PULSE 112; RESP 16; TEMP 98.2
[2024-12-01] MEDS ORDERED: THIAMINE 100 MG TAB PO SCH (09:00)
== END 2024-11-30 14:55 | disposition other institution (70) ==
LOC: EC 13:55 → 3SCARD 17:18
PROVIDERS: ADMIT Student in an Organized Health Care Education/Training Program; ATTEND Student in an Organized Health Care Education/Training Program
DX: Z86.72 Personal history of thrombophlebitis (principal); F10.239 Alcohol dependence with withdrawal, unspecified; F10.229 Alcohol dependence with intoxication, unspecified; Y90.8 Blood alcohol level of 240 mg/100 ml or more; E87.29 Other acidosis; I10 Essential (primary) hypertension; F32.A Depression, unspecified; Z79.01 Long term (current) use of anticoagulants; Z88.1 Allergy status to other antibiotic agents; Z93.3 Colostomy status; W01.0XXA Fall on same level from slipping, tripping and stumbling without subsequent striking against object, initial encounter; Z11.52 Encounter for screening for COVID-19; Z11.59 Encounter for screening for other viral diseases; Z87.891 Personal history of nicotine dependence; Z90.49 Acquired absence of other specified parts of digestive tract; Z86.718 Personal history of other venous thrombosis and embolism
CPT/HCPCS: 96376; 96372 ×2; 96374; 96361; 99291; 36415; 93005; 80053 ×2; 82150; 83605 ×2; 83690; 85025 ×2; 85610; 85730; 87636; 72170; 71045; 72125; 70450; G0378 ×2; G0480; J2060; J3411; J1650; 80320

== ENCOUNTER 2025-03-13 17:25 | Emergency (ER) | payer MEDICARE, OTHER ==
--- NOTE | 2025-03-13 18:07 | ED ---
General Adult HPI - General Source: patient, EMS, RN notes reviewed Mode of arrival: EMS Limitations: no limitations <Js Drake - Last Filed: 03/13/25 21:03> <Valeria Stewart - Last Filed: 03/14/25 01:05> - General Chief complaint: Fall Stated complaint: Fall Time Seen by Provider: 03/13/25 17:29 - History of Present Illness Initial comments: Patient is a 59-year-old female present to the emergency department for a fall. Patient states she tripped and fell backwards. Patient believes she struck her head on a coffee table. Patient unclear whether or not she could have lost consciousness. Patient has mild headache. No other complaints or areas of concern for injury. (Js Drake) - Related Data Previous Rx's Medication Instructions Recorded Folic Acid 1 mg PO DAILY 30 Days #30 tab 11/30/24 Multivitamins, Thera [Multivitamin 1 each PO DAILY 30 Days #30 tab 11/30/24 (formulary)] Thiamine [Vitamin B-1] 100 mg PO DAILY 30 Days #30 tab 11/30/24 amLODIPine [Norvasc] 5 mg PO DAILY 30 Days #30 tab 11/30/24 Allergies Allergy/AdvReac Type Severity Reaction Status Date / Time bacitracin Allergy Rash/Hives Verified 03/13/25 17:35 cephalexin [From Keflex] Allergy Itching Verified 03/13/25 17:35 Review of Systems ROS Other: All systems not noted in ROS Statement are negative. Constitutional: Denies: fever Respiratory: Denies: dyspnea Cardiovascular: Denies: chest pain Gastrointestinal: Denies: abdominal pain Neurological: Reports: as per HPI, headache. Denies: weakness <Js Drake - Last Filed: 03/13/25 21:03> ROS Other: All systems not noted in ROS Statement are negative. <Valeria Stewart - Last Filed: 03/14/25 01:05> ROS Statement: Those systems with pertinent positive or pertinent negative responses have been documented in the HPI. Past Medical History Past Medical History: Deep Vein Thrombosis (DVT), Hypertension Additional Past Medical History / Comment(s): concussion History of Any Multi-Drug Resistant Organisms: None Reported Past Surgical History: Bowel Resection Additional Past Surgical History / Comment(s): jaw surgery, colostomy 01/2023 Past Anesthesia/Blood Transfusion Reactions: No Reported Reaction Past Psychological History: Anxiety, Depression Smoking Status: Former smoker Past Alcohol Use History: Abuse, Daily, Heavy Past Drug Use History: None Reported - Past Family History Father Additional Family Medical History / Comment(s): Spleen CA Mother Family Medical History: COPD Additional Family Medical History / Comment(s): empysema <Js Drake - Last Filed: 03/13/25 21:03> General Exam Limitations: no limitations General appearance: alert, in no apparent distress Head exam: Present: atraumatic, normocephalic Eye exam: Present: normal appearance, PERRL, EOMI ENT exam: Present: normal oropharynx Neck exam: Present: normal inspection. Absent: tenderness Respiratory exam: Present: normal lung sounds bilaterally Cardiovascular Exam: Present: regular rate, normal rhythm GI/Abdominal exam: Present: soft. Absent: tenderness Extremities exam: Present: normal inspection, full ROM. Absent: tenderness Neurological exam: Present: alert, CN II-XII intact. Absent: motor sensory deficit Psychiatric exam: Present: normal affect, normal mood Skin exam: Present: normal color <Js Drake - Last Filed: 03/13/25 21:03> Course <Js Drake - Last Filed: 03/13/25 21:03> Vital Signs 03/13/25 17:28 Temperature 97.8 F Pulse Rate 80 Respiratory 16 Rate Blood Pressure 109/79 O2 Sat by Pulse 92 L Oximetry - Reevaluation(s) Reevaluation #1: 03/13/25 20:03 Patient is being uncooperative with CT. They we will try again soon. (Js Drake) EKG Findings - EKG Results: EKG: interpreted by ERMD (T wave inversion in lead III.), sinus rhythm, normal axis, normal QRS <Js Drake - Last Filed: 03/13/25 21:03> Medical Decision Making <Js Drake - Last Filed: 03/13/25 21:03> <Valeria Stewart - Last Filed: 03/14/25 01:05> - Medical Decision Making Was pt. sent in by a medical professional or institution (, PA, NITRILES LAB TECHNICIAN, urgent care, hospital, or [facility]...) When possible be specific @ -[No] Did you speak to anyone other than the patient for history (EMS, parent, family, police, friend...)? What history was obtained from this source @ -[No] Did you review nursing and triage notes (agree or disagree)? Why? @ -[I reviewed and agree with nursing and triage notes] Were old charts reviewed (outside hosp., previous admission, EMS record, old EKG, old radiological studies, urgent care reports/EKG's, [facility] records)? Report findings @ -[No old charts were reviewed] Differential Diagnosis (chest pain, altered mental status, abdominal pain women, abdominal pain men, vaginal bleeding, weakness, fever, dyspnea, syncope, headache, dizziness, GI bleed, back pain, seizure, CVA, palpatations, mental health, musculoskeletal)? @ -Differential Headache: Migraine, tension, cluster, carbon monoxide, central venous thrombosis, pension karma temporal arteritis, acute closure glaucoma, intercranial hemorrhage, mastoiditis, sinusitis, head injury, this is not meant to be an all-inclusive list. EKG interpreted by me (3pts min.). @ -[As above] X-rays interpreted by me (1pt min.). @ -[None done] CT interpreted by me (1pt min.). @ -[None done] U/S interpreted by me (1pt. min.). @ -[None done] What testing was considered but not performed or refused? (CT, X-rays, U/S, labs)? Why? @ -CT scan ordered and still pending What meds were considered but not given or refused? Why? @ -[None] Did you discuss the management of the patient with other professionals (professionals i.e. , PA, NITRILES LAB TECHNICIAN, lab, RT, psych nurse, social media specialist, financial analyst accountant, teacher, account officer, case briefer)? Give summary @ -[No] Was smoking cessation discussed for >3mins.? @ -[No] Was critical care preformed (if so, how long)? @ -[No] Were there social determinants of health that impacted care today? How? (Homelessness, low income, unemployed, alcoholism, drug addiction, transportation, low edu. Level, literacy, decrease access to med. care, snf, rehab)? @ -[No] Was there de-escalation of care discussed even if they declined (Discuss DNR or withdrawal of care, Hospice)? DNR status @ -[No] What co-morbidities impacted this encounter? (DM, HTN, Smoking, COPD, CAD, Cancer, CVA, ARF, Chemo, Hep., AIDS, mental health diagnosis, sleep apnea, morbid obesity)? @ -Chronic alcohol use Was patient admitted / discharged? Hospital course, mention meds given and route, prescriptions, significant lab abnormalities, going to OR and other pertinent info. @ -Patient presents with fall and head injury. Patient has refused head CT several times. Discussion with patient again and she will go for CAT scan at this time. Patient will be observed and CT report will be reviewed prior to probable discharge at shift change. (Js Drake) Patient signed out to myself pending CT brain C-spine. Briefly she patient was intoxicated and had a fall and head injury. CT brain C-spine was negative for acute process. On my assessment patient is awake alert with clear speech. I discussed with her CT findings, she is ready for discharge. Discussed with patient signs symptoms warranting return to the ER such as severe headache, changes in vision, numbness, weakness nausea or vomiting. Patient discharged (Valeria Stewart) Disposition <Js Drake - Last Filed: 03/13/25 21:03> Is patient prescribed a controlled substance at d/c from ED?: No <Valeria Stewart - Last Filed: 03/14/25 01:05> Clinical Impression: Fall, Head injury Disposition: HOME SELF-CARE Condition: Good Instructions (If sedation given, give patient instructions): Fall Prevention (ED) Additional Instructions: Every disease is a spectrum and a small chance still exists that a serious condition could develop, for this reason, please monitor yourself closely for new, changing or worsening symptoms, symptoms that persist beyond 48 hours, severe headaches, changes in vision, numbness, weakness or slurred speech or other strokelike symptoms, nausea and vomiting fever, inability to tolerate/keep down fluids or your medications, inability to follow up with outpatient providers as instructed and should you experience these symptoms or should you have any further concerns for your wellbeing please return to the ED or call 911 immediately. PLEASE call your primary care physician as soon as possible to arrange / discuss plan for followup appointment. Appointment in the next 1-3 days is strongly encouraged if possible. PLEASE let us know here before you leave if there is anything further we can do to be of any assistance. Take care and feel Better! Referrals: None,Stated [Primary Care Provider] - 1-2 days
--- NOTE | 2025-03-13 19:44 | XR ---
EXAMINATION TYPE: XR chest 1V portable DATE OF EXAM: 03/13/2025 7:38 PM COMPARISON: Chest radiographs from 11/29/2024 TECHNIQUE: XR chest 1V portable Portable AP radiograph of the chest. CLINICAL INDICATION:Female, 59 years old with history of fall; pain FINDINGS: Lungs/Pleura: There is no evidence of pleural effusion, focal consolidation, or pneumothorax. Pulmonary vascularity: Unremarkable. Heart/mediastinum: Cardiomediastinal silhouette is unremarkable. Musculoskeletal: No acute osseous pathology. Stable sclerotic focus within the left humeral head like ly representing an enchondroma. IMPRESSION: No acute cardiopulmonary disease/process. [facility], , 03/13/2025 7:41 PM
--- NOTE | 2025-03-13 19:46 | XR ---
EXAMINATION TYPE: XR pelvis AP view DATE OF EXAM: 03/13/2025 7:38 PM INDICATION: Patient age:Female; 59 years old; Reason for study: fall; PHH. pain COMPARISON: Pelvic radiograph 11/29/2024 TECHNIQUE: The pelvis was examined in a single projection. FINDINGS: There is no evidence of fracture or dislocation. There is no soft tissue abnormality. Redem onstration of ossification along the anterior lateral right hip. Suggest sequelae of prior avulsion i njury to the rectus femoris. Bilateral SI joints appear intact. IMPRESSION: No acute osseous pathology. [facility], , 03/13/2025 7:44 PM
--- NOTE | 2025-03-14 00:35 | CT ---
EXAM: CT Head Without Intravenous Contrast CLINICAL HISTORY: ITS.REASON CT Reason: fall TECHNIQUE: Axial computed tomography images of the head/brain without intravenous contrast. CTDI is 45.2 mGy and DLP is 1034 mGy-cm. This CT exam was performed using one or more of the following dose reduction techniques: automated exposure control, adjustment of the mA and/or kV according to patient size, and/or use of iterative reconstruction technique. COMPARISON: Prior head CT from November 29, 2024. FINDINGS: Brain: Unremarkable. No hemorrhage. No significant white matter disease. No edema. Ventricles: Unremarkable. No ventriculomegaly. Bones/joints: Unremarkable. No acute fracture. Soft tissues: Unremarkable. Sinuses: Unremarkable as visualized. No acute sinusitis. Mastoid air cells: Unremarkable as visualized. No mastoid effusion. IMPRESSION: No evidence of acute intracranial pathology. EXAM: CT Cervical Spine Without Intravenous Contrast CLINICAL HISTORY: ITS.REASON CT Reason: fall TECHNIQUE: Axial computed tomography images of the cervical spine without intravenous contrast. CTDI is 14.8 mGy and DLP is 402.3 mGy-cm. This CT exam was performed using one or more of the following dose reduction techniques: automated exposure control, adjustment of the mA and/or kV according to patient size, and/or use of iterative reconstruction technique. COMPARISON: Prior CT scan of the cervical spine from November 28, 2024. FINDINGS: Vertebrae: Unremarkable. No acute fracture. Discs/spinal canal/neural foramina: No acute findings. Severe spinal canal stenosis at C6-7. Soft tissues: Unremarkable. IMPRESSION: No evidence of acute cervical spine pathology.
[2025-03-14 01:16] VITALS: BP 122/86; PULSE 82; RESP 17; TEMP 97.6
== END 2025-03-14 01:16 | disposition home or self-care (01) ==
LOC: EC 17:25
DX: S09.90XA Unspecified injury of head, initial encounter (principal); Z87.891 Personal history of nicotine dependence; Z88.1 Allergy status to other antibiotic agents; Z88.8 Allergy status to other drugs, medicaments and biological substances; W01.190A Fall on same level from slipping, tripping and stumbling with subsequent striking against furniture, initial encounter
CPT/HCPCS: 70450; 71045; 72125; 72170; 99284

== ENCOUNTER 2025-03-26 21:35 | Emergency (ER) | payer MEDICARE ==
[2025-03-26 21:43] VITALS: BP 106/68; PULSE 103; RESP 20; TEMP 98.3
--- NOTE | 2025-03-26 22:45 | ED ---
Alcohol HPI - General Chief Complaint: Alcohol Stated Complaint: ETOH Time Seen by Provider: 03/26/25 22:04 Source: EMS, RN notes reviewed, old records reviewed Mode of arrival: EMS Limitations: no limitations - History of Present Illness Initial Comments: This is a 59 female to ER for evaluation patient presents by EMS for significant alcohol intoxication MD Complaint: alcohol intoxication Last Drink: just CHILD SPECIALIST -: minute(s) Previous Visits for Alcohol Intoxication?: Yes Recent Trauma: Yes Associated Symptoms: denies other symptoms Treatments Prior to Arrival: none Chronic Alcohol Use: Yes - Related Data Previous Rx's Medication Instructions Recorded Folic Acid 1 mg PO DAILY 30 Days #30 tab 11/30/24 Multivitamins, Thera [Multivitamin 1 each PO DAILY 30 Days #30 tab 11/30/24 (formulary)] Thiamine [Vitamin B-1] 100 mg PO DAILY 30 Days #30 tab 11/30/24 amLODIPine [Norvasc] 5 mg PO DAILY 30 Days #30 tab 11/30/24 Allergies Allergy/AdvReac Type Severity Reaction Status Date / Time bacitracin Allergy Rash/Hives Verified 03/26/25 21:43 cephalexin [From Keflex] Allergy Itching Verified 03/26/25 21:43 Review of Systems ROS Statement: Those systems with pertinent positive or pertinent negative responses have been documented in the HPI. ROS Other: All systems not noted in ROS Statement are negative. Past Medical History Past Medical History: Deep Vein Thrombosis (DVT), Hypertension Additional Past Medical History / Comment(s): concussion History of Any Multi-Drug Resistant Organisms: None Reported Past Surgical History: Bowel Resection Additional Past Surgical History / Comment(s): jaw surgery, colostomy 01/2023 Past Anesthesia/Blood Transfusion Reactions: No Reported Reaction Past Psychological History: Anxiety, Depression Smoking Status: Former smoker Past Alcohol Use History: Abuse, Daily, Heavy Past Drug Use History: None Reported - Past Family History Father Additional Family Medical History / Comment(s): Spleen CA Mother Family Medical History: COPD Additional Family Medical History / Comment(s): empysema General Exam Limitations: no limitations General appearance: appears intoxicated Head exam: Present: atraumatic, normocephalic, normal inspection Eye exam: Present: normal appearance, PERRL, EOMI. Absent: scleral icterus, conjunctival injection, periorbital swelling ENT exam: Present: normal exam, mucous membranes moist Neck exam: Present: normal inspection. Absent: tenderness, meningismus, lymphadenopathy Respiratory exam: Present: normal lung sounds bilaterally. Absent: respiratory distress, wheezes, rales, rhonchi, stridor Cardiovascular Exam: Present: regular rate, normal rhythm, normal heart sounds. Absent: systolic murmur, diastolic murmur, rubs, gallop, clicks GI/Abdominal exam: Present: soft, normal bowel sounds. Absent: distended, tenderness, guarding, rebound, rigid Extremities exam: Present: normal inspection, full ROM, normal capillary refill. Absent: tenderness, pedal edema, joint swelling, calf tenderness Back exam: Present: normal inspection Neurological exam: Present: alert, oriented X3, CN II-XII intact Psychiatric exam: Present: normal affect, normal mood Skin exam: Present: warm, dry, intact, normal color. Absent: rash Course Vital Signs 03/26/25 21:41 Temperature 98.3 F Pulse Rate 103 H Respiratory 20 Rate Blood Pressure 106/68 O2 Sat by Pulse 94 L Oximetry - Reevaluation(s) Reevaluation #1: 03/27/25 01:01 Medical records reviewed Reevaluation #2: Patient appears acutely intoxicated on arrival to the ER Reevaluation #3: Patient prefers to leave AGAINST MEDICAL ADVICE without further testing Reevaluation #4: Was pt. sent in by a medical professional or institution (, PA, SOLAR ENERGY TECHNICIAN, urgent care, hospital, or senior living...) When possible be specific @ -no Did you speak to anyone other than the patient for history (EMS, parent, family, police, friend...)? What history was obtained from this source @ -no Did you review nursing and triage notes (agree or disagree)? Why? @ -agree Are old charts reviewed (outside hosp., previous admission, EMS record, old EKG, old radiological studies, urgent care reports/EKG's, senior living records)? Report findings @ -yes Differential Diagnosis (chest pain, altered mental status, abdominal pain women, abdominal pain men, vaginal bleeding, weakness, fever, dyspnea, syncope, headache, dizziness, GI bleed, back pain, seizure, CVA, palpatations, mental health, musculoskeletal)? @ -prior EKG interpreted by me (3pts min.). @ -yes X-rays interpreted by me (1pt min.). @ -yes negative for acute disease CT interpreted by me (1pt min.). @ -no U/S interpreted by me (1pt. min.). @ -no What testing was considered but not performed or refused? (CT, X-rays, U/S, labs)? Why? @ -none What meds were considered but not given or refused? Why? @ -none Did you discuss the management of the patient with other professionals (jared centeno i.e. , PA, SOLAR ENERGY TECHNICIAN, lab, RT, psych nurse, social services aide, fraud manager, teacher, corporate development officer, caser up)? Give summary @ -no Was smoking cessation discussed for >3mins.? @ -no Was critical care preformed (if so, how long)? @ -no Were there social determinants of health that impacted care today? How? (Homelessness, low income, unemployed, alcoholism, drug addiction, transportation, low edu. Level, literacy, decrease access to med. care, [facility], rehab)? @ -none Was there de-escalation of care discussed even if they declined (Discuss DNR or withdrawal of care, Hospice)? DNR status @ -no What co-morbidities impacted this encounter? (DM, HTN, Smoking, COPD, CAD, Cancer, CVA, ARF, Chemo, Hep., AIDS, mental health diagnosis, sleep apnea, morbid obesity)? @ -none Was patient admitted / discharged? Hospital course, mention meds given and route, prescriptions, significant lab abnormalities, going to OR and other pertinent info. @ - Undiagnosed new problem with uncertain prognosis? @ -no Drug Therapy requiring intensive monitoring for toxicity (Heparin, Nitro, Insulin, Cardizem)? @ -no Were any procedures done? @ -no Diagnosis/symptom? @ - Acute, or Chronic, or Acute on Chronic? @ -Acute Uncomplicated (without systemic symptoms) or Complicated (systemic symptoms)? @ -Complicated Side effects of treatment? @ -no Exacerbation, Progression, or Severe Exacerbation? @ -exacerbation Poses a threat to life or bodily function? How? (Chest pain, USA, IA, pneumonia, PE, COPD, DKA, ARF, appy, cholecystitis, CVA, Diverticulitis, Homicidal, Suicidal, threat to staff... and all critical care pts) @ -yes Reevaluation #5: Differential Altered Mental Status: Hypoglycemia, DKA, hypercapnia, ETOH, overdose, CO poisoning, trauma, myxedema coma, HTN encephalopathy, infection, encephalitis, psychosis, intercranial hemorrhage, hepatic encephalopathy, meningitis, CVA, this is not meant to be an all-inclusive list Medical Decision Making - Medical Decision Making 59 female leaves AGAINST MEDICAL ADVICE, patient refuses to be seen and treated Disposition Clinical Impression: Left against medical advice Disposition: LEFT AGAINST MEDICAL ADVICE Condition: Undetermined Is patient prescribed a controlled substance at d/c from ED?: No Referrals: Rex Singh MD [Primary Care Provider] - 1-2 days
== END 2025-03-27 00:47 | disposition left against medical advice (07) ==
LOC: EC 21:35
DX: F10.129 Alcohol abuse with intoxication, unspecified (principal); Z87.891 Personal history of nicotine dependence; Z88.1 Allergy status to other antibiotic agents; Z53.29 Procedure and treatment not carried out because of patient's decision for other reasons
CPT/HCPCS: 99284